=== PATIENT | male | born 1970 | race Caucasian/White ===

== ENCOUNTER 2020-02-27 03:01 | Inpatient (IN) | payer OTHER, SELFPAY ==
[2020-02-27] VITALS (12 sets, daily range): BP systolic 168–210; BP diastolic 93–115; PULSE 74–95; RESP 16–20; TEMP 36.7–37.1; O2SAT 95–100; BMI 37.1
--- NOTE | 2020-02-27 04:52 | CT_ITS ---
EXAMINATION: CT ABDOMEN AND PELVIS WITH CONTRAST CLINICAL INFORMATION: epigastric pain COMPARISON: None TECHNIQUE: Multidetector volumetric images were obtained from the superior aspect of the liver through the pubic symphysis following administration 85 mL of Omnipaque 350 intravenous contrast. Sagittal and coronal reformatted images were obtained on the technologist's workstation. Oral contrast: No This CT examination was performed using dose optimization techniques as appropriate, variously including the following: *Automated exposure control *Adjustment of mA and/or kV according to patient size (this includes techniques or standardized protocols for targeted exams where dose is matched to indication/reason for exam; i.e. extremities or head) *Use of iterative reconstruction technique DLP: 691 mGy-cm FINDINGS: LUNG BASES: The visualized lung bases are unremarkable. LIVER, GALLBLADDER, AND BILIARY TREE: The liver is normal in size, shape, and attenuation. No focal hepatic lesion or biliary ductal dilatation is present. The gallbladder is unremarkable with no evidence of radiopaque gallstones, gallbladder wall thickening, or obvious pericholecystic inflammatory changes. PANCREAS: There is fat stranding around the pancreatic head and the second portion of duodenum. Pancreatic parenchyma is normal in attenuation. No ductal dilatation. No fluid collections. No pancreatic calcifications. SPLEEN: Unremarkable. ADRENAL GLANDS: Unremarkable. KIDNEYS AND URETERS: The kidneys are normal in size, shape, and attenuation. No hydronephrosis, hydroureter, or calculi seen. No perinephric stranding. BLADDER: Unremarkable. GASTROINTESTINAL TRACT: There is focal wall thickening at the second and third portions of the duodenum with mucosal hyperenhancement. No extraluminal gas or fluid collections are identified in this region. Small bowel and colon are otherwise normal in appearance. No additional bowel wall thickening. Appendix is unremarkable. ABDOMINAL WALL: Small fat-containing umbilical hernia. LYMPH NODES: No adenopathy. VASCULAR: Mild atherosclerotic calcification in the abdominal aorta and iliac arteries. PELVIC VISCERA: Unremarkable. OSSEOUS STRUCTURES: Status post right total hip arthroplasty without evidence of complications on these images. Mild osteoarthritis in the left hip. Degenerative spondylosis in the thoracolumbar spine. CT/CT abdomen pelvis w con IMPRESSION: Fat stranding around the pancreatic head and the second and third portions of the duodenum with associated duodenal wall thickening and mucosal hyperemia. This appearance is most likely due to acute interstitial pancreatitis with secondary inflammation of the duodenum. Primary duodenitis or peptic ulcer disease are also possibilities. No evidence of perforation or fluid collections.
--- NOTE | 2020-02-27 04:54 | ED_ITS ---
HPI - Abdominal Pain General Chief Complaint: Abdominal Pain Stated Complaint: Abdominal/Chest Pain Time Seen by Provider: 02/27/20 04:47 Source: patient Mode of arrival: ambulatory Limitations: no limitations History of Present Illness HPI narrative: Patient comes emergency room complaining of epigastric pain which started 3 days ago but gradually getting worse. Patient states 3 days ago it was his birthday, he has been binge drinking for 3 days in a row. However, patient states that his pain reminds me of the time he was poisoned with rat poison patient denies being in any physical contact with any poison to his knowledge. Patient complaining of vomiting, no diarrhea. No fever. Related Data Allergies Allergy/AdvReac Type Severity Reaction Status Date / Time No Known Allergies Allergy Unverified 11/02/19 16:02 [No Known Allergies*] Review of Systems Review of Systems Constitutional : No Weight loss, No Fever, No Chills, No Night Sweats, No Fatigue, No Malaise ENT/Mouth : No Hearing loss, No Ear Pain, No Nasal Congestion, No Sinus Pain, No Hoarseness, No sore throat, No Rhinorrhea, No Swallowing Difficulty Eyes: No Eye Pain, No Swelling, No Redness, No Foreign Body, No Discharge, No Vision Changes Cardiovascular : No Chest Pain, No SOB, No Dyspnea on Exertion, No Orthopnea, No Edema, No Palpitations Respiratory : No Cough, No Sputum, No Wheezing, No Smoke Exposure, No Dyspnea Gastrointestinal : Patient complaining of nausea and vomiting, no diarrhea, diffuse abdominal pain but much worse in the epigastric region Genitourinary : no irregular bleeding, No Dysuria, No Urinary Frequency, No Hematuria, No Urinary Incontinence, No Urgency, No Flank Pain, No Urinary Flow Changes, No Hesitancy Musculoskeletal : No joint pain, No Myalgias, No Joint Swelling Skin : No Skin Lesions, No rash Neuro : No Weakness, No Numbness, No Paresthesias, No Loss of Consciousness, No Dizziness, No Headache Psych : No Anxiety/Panic, complaining of depression, therefore drinking more than usual, but no SI or HI Heme/Lymph: No Bruising, No Bleeding,No Lymphadenopathy Endocrine : No Polyuria, No Polydipsia, No Temperature Intolerance Physical Exam Vital Signs: Vital Signs: Last Vital Signs Temp 98.4 F 02/27/20 05:36 Pulse 76 02/27/20 05:36 Resp 16 02/27/20 05:36 BP 192/102 H 02/27/20 05:36 Pulse Ox 99 02/27/20 05:36 Body Mass Index 37.1 Appearance: Alert. Oriented X3. In moderate distress due to pain Eyes: Pupils equal, round and reactive to light. ENT: Pharynx normal. Neck: Normal inspection. Neck supple. No lymph nodes noted. No crepitus CVS: Normal heart rate and rhythm. Pulses normal. Normal S1 and S2 Respiratory: No respiratory distress. Breath sounds normal. No Wheezing. No rales Abdomen: Soft not distended, complaining of severe epigastric pain Skin: Skin warm and dry. Normal skin color. Normal skin turgor. Extremities: No lower extremity edema. No lower extremity edema. No Lacerations. No Rash Neuro: Oriented X 3. No motor deficit. No sensory deficit. Moving all extermities. No slurred speech. Course Course Course Narrative: Patient's lipase is elevated and CT scan does show pancreatitis. I spoke with our hospitalist Dr. Romo, patient is being admitted. MDM - Abdominal Pain Lab Data Result diagrams: 02/27/20 05:14 02/27/20 05:14 Labs: Lab Results 02/27/20 02/27/20 02/27/20 Range/Units 05:14 05:14 05:14 WBC 13.8 H (4.8-10.8) X10*3/uL RBC 4.19 L (4.60-5.80) X10*6/uL Hgb 13.6 L (14.0-18.0) g/dl Hct 38.9 L (42-52) % MCV 92.8 (80-98) fL MCH 32.5 (27.0-33.0) pg MCHC 35.0 (31.0-36.0) g/dl RDW 11.4 (11.0-16.0) % Plt Count 265 (160-400) X10*3/uL MPV 9.4 (9.4-12.4) fL Immature Gran % (Auto) 0.6 H (0.0-0.4) % Neut % (Auto) 79.9 H (45-73) % Lymph % (Auto) 9.2 L (20-40) % [place] % (Auto) 8.3 (2-11) % Eos % (Auto) 1.6 (0-4) % Baso % (Auto) 0.4 (0-2) % Lymph # (Auto) 1.3 (1.2-4.9) X10*3/uL [place] # (Auto) 1.2 (0.1-1.2) X10*3/uL Eos # (Auto) 0.2 (0.0-0.4) X10*3/uL Baso # (Auto) 0.1 (0.0-0.2) X10*3/uL Abs Immat Gran (auto) 0.08 H (0.00-0.03) X10*3/uL Absolute Neuts (auto) 11.1 H (2.0-8.3) X10*3/uL Absolute Nucleated RBC 0.000 (0.0-0.012) X10*3/uL Nucleated RBC % (auto) 0.0 (0.0-0.2) /100WBC Sodium 141 (135-145) mmol/L Potassium 3.7 (3.3-5.1) mmol/l Chloride 101 (96-108) mmol/L Carbon Dioxide 27 (22-29) mmol/L Anion Gap 17 (12-20) BUN 8 L (9-16) mg/dL Creatinine 0.90 (0.5-1.4) mg/dL Estim Creat Clear Calc 108.6 Estimated GFR > 60 Random Glucose 253 H (60-115) mg/dL Calcium 9.8 (8.4-10.2) mg/dL Total Bilirubin 0.7 (0.0-1.0) mg/dL Direct Bilirubin 0.3 (0.0-0.5) mg/dL AST 26 (5-37) U/L ALT 48 H (0-40) U/L Alkaline Phosphatase 98 (39-117) U/L Troponin I High Sens 4.9 (<3.5-35.0) ng/L Total Protein 7.5 (6.5-8.0) g/dL Albumin 4.7 (3.5-5.0) g/dL Lipase 714 H (8-78) U/L Ethyl Alcohol mg/dL 02/27/20 Range/Units 05:14 WBC (4.8-10.8) X10*3/uL RBC (4.60-5.80) X10*6/uL Hgb (14.0-18.0) g/dl Hct (42-52) % MCV (80-98) fL MCH (27.0-33.0) pg MCHC (31.0-36.0) g/dl RDW (11.0-16.0) % Plt Count (160-400) X10*3/uL MPV (9.4-12.4) fL Immature Gran % (Auto) (0.0-0.4) % Neut % (Auto) (45-73) % Lymph % (Auto) (20-40) % [place] % (Auto) (2-11) % Eos % (Auto) (0-4) % Baso % (Auto) (0-2) % Lymph # (Auto) (1.2-4.9) X10*3/uL [place] # (Auto) (0.1-1.2) X10*3/uL Eos # (Auto) (0.0-0.4) X10*3/uL Baso # (Auto) (0.0-0.2) X10*3/uL Abs Immat Gran (auto) (0.00-0.03) X10*3/uL Absolute Neuts (auto) (2.0-8.3) X10*3/uL Absolute Nucleated RBC (0.0-0.012) X10*3/uL Nucleated RBC % (auto) (0.0-0.2) /100WBC Sodium (135-145) mmol/L Potassium (3.3-5.1) mmol/l Chloride (96-108) mmol/L Carbon Dioxide (22-29) mmol/L Anion Gap (12-20) BUN (9-16) mg/dL Creatinine (0.5-1.4) mg/dL Estim Creat Clear Calc Estimated GFR Random Glucose (60-115) mg/dL Calcium (8.4-10.2) mg/dL Total Bilirubin (0.0-1.0) mg/dL Direct Bilirubin (0.0-0.5) mg/dL AST (5-37) U/L ALT (0-40) U/L Alkaline Phosphatase (39-117) U/L Troponin I High Sens (<3.5-35.0) ng/L Total Protein (6.5-8.0) g/dL Albumin (3.5-5.0) g/dL Lipase (8-78) U/L Ethyl Alcohol < 10 mg/dL Imaging Data CT scan - abdomen: Radiologist's impression: FINDINGS: LUNG BASES: The visualized lung bases are unremarkable. LIVER, GALLBLADDER, AND BILIARY TREE: The liver is normal in size, shape, and attenuation. No focal hepatic lesion or biliary ductal dilatation is present. The gallbladder is unremarkable with no evidence of radiopaque gallstones, gallbladder wall thickening, or obvious pericholecystic inflammatory changes. PANCREAS: There is fat stranding around the pancreatic head and the second portion of duodenum. Pancreatic parenchyma is normal in attenuation. No ductal dilatation. No fluid collections. No pancreatic calcifications. SPLEEN: Unremarkable. ADRENAL GLANDS: Unremarkable. KIDNEYS AND URETERS: The kidneys are normal in size, shape, and attenuation. No hydronephrosis, hydroureter, or calculi seen. No perinephric stranding. BLADDER: Unremarkable. GASTROINTESTINAL TRACT: There is focal wall thickening at the second and third portions of the duodenum with mucosal hyperenhancement. No extraluminal gas or fluid collections are identified in this region. Small bowel and colon are otherwise normal in appearance. No additional bowel wall thickening. Appendix is unremarkable. ABDOMINAL WALL: Small fat-containing umbilical hernia. LYMPH NODES: No adenopathy. VASCULAR: Mild atherosclerotic calcification in the abdominal aorta and iliac arteries. PELVIC VISCERA: Unremarkable. OSSEOUS STRUCTURES: Status post right total hip arthroplasty without evidence of complications on these images. Mild osteoarthritis in the left hip. Degenerative spondylosis in the thoracolumbar spine. CT/CT abdomen pelvis w con IMPRESSION: Fat stranding around the pancreatic head and the second and third portions of the duodenum with associated duodenal wall thickening and mucosal hyperemia. This appearance is most likely due to acute interstitial pancreatitis with secondary inflammation of the duodenum. Primary duodenitis or peptic ulcer disease are also possibilities. No evidence of perforation or fluid collections. Discharge Plan Discharge Clinical Impression: Pancreatitis Patient Disposition: Admitted As Inpatient [facility] Past Medical History Medical History (Updated 02/27/20 @ 07:07 by Lisa Allison MD) Alcohol abuse Arthritis Cocaine abuse Hypertension Pancreatitis Seizures Social History Social History Advance Directives: No
[2020-02-27] MEDS: 0.9 % Sodium Chloride 1,000 ML 999 ML IVCONT ×2 (05:10→07:31)
[2020-02-27] MEDS: ondansetron HCL 4 MG/2 ML VIAL IVPUSH (05:10)
[2020-02-27] MEDS: Morphine Sulfate 4 MG/ML CARTRIDGE IVPUSH (05:10)
[2020-02-27 05:20] LABS: MANUAL DIFF FLAG NO
[2020-02-27 05:21] LABS: Basophils Absolute Auto 0.1 X10*3/uL (0.0-0.2); Basophils Percent Auto 0.4 % (0-2); Eosinophils Absolute Auto 0.2 X10*3/uL (0.0-0.4); Eosinophils Percent Auto 1.6 % (0-4); Hematocrit 38.9 % (42-52); Hemoglobin 13.6 g/dl (14.0-18.0); Imm Gran Abs Auto 0.08 X10*3/uL (0.00-0.03); Imm Gran Pct Auto 0.6 % (0.0-0.4); Lymphocytes Absolute Auto 1.3 X10*3/uL (1.2-4.9); Lymphocytes Percent Auto 9.2 % (20-40); Mean Corpuscular Hemoglobin 32.5 pg (27.0-33.0); Mean Corpuscular Volume 92.8 fL (80-98); Mean Platelet Volume 9.4 fL (9.4-12.4); Monocytes Absolute Auto 1.2 X10*3/uL (0.1-1.2); Monocytes Percent Auto 8.3 % (2-11); Neutrophils Absolute Auto 11.1 X10*3/uL (2.0-8.3); Neutrophils Percent Auto 79.9 % (45-73); Platelet Count 265 X10*3/uL (160-400); Red Blood Count 4.19 X10*6/uL (4.60-5.80); Red Cell Distribution Width 11.4 % (11.0-16.0); White Blood Count 13.8 X10*3/uL (4.8-10.8)
[2020-02-27 05:41] LABS: Ethanol < 10 mg/dL
--- NOTE | 2020-02-27 05:41 | PC.NURSE ---
LUIS FLORES AWARE OF PATIENT HIGH BLOOD PRESSURE .
[2020-02-27 05:47] LABS: Troponin-I High Sensitivity 4.9 ng/L (<3.5-35.0)
[2020-02-27 05:50] LABS: Alanine Aminotransferase 48 U/L (0-40); Albumin Level 4.7 g/dL (3.5-5.0); Alkaline Phosphatase 98 U/L (39-117); Anion Gap 17 (12-20); Aspartate Amino Transferase 26 U/L (5-37); Bilirubin Direct 0.3 mg/dL (0.0-0.5); Bilirubin Total 0.7 mg/dL (0.0-1.0); Blood Urea Nitrogen 8 mg/dL (9-16); Calcium 9.8 mg/dL (8.4-10.2); Carbon Dioxide 27 mmol/L (22-29); Chloride 101 mmol/L (96-108); Creatinine Clr Calc Pharmacy 108.6; Estimated Glomerular Filt Rate > 60; Glucose Random 253 mg/dL (60-115); Potassium 3.7 mmol/l (3.3-5.1); Sodium 141 mmol/L (135-145); Total Protein 7.5 g/dL (6.5-8.0)
[2020-02-27 06:06] LABS: Lipase 714 U/L (8-78)
[2020-02-27] MEDS: iohexoL 350 MG/ML 100 ML INFUS..BTL 85 ML IV (06:31)
[2020-02-27] MEDS: HYDROmorphone HCl 1 MG/ML SYRINGE IVPUSH ×3 (07:30→20:04)
[2020-02-27 08:43] LABS: COVID-19 Test Negative (Negative)
--- NOTE | 2020-02-27 10:08 | PM.GICN ---
History of Present Illness Data of Consult Service Date: 02/27/20 Requesting physician: Juan David Oliver Primary Care Provider: Ruma Gilbert MD HPI Reason for consult: pancreatitis 50 yr old m with alcohol abuse hx and DM who I am assessing for pancreatitis, He had been binging on beer for 3 d, admits drinking more than he should be but cant quantify. Has had worsening epigastric pain, now 10/10 severitiy, hurts to eat or move. He says he has had this beofre and dx with pancreatitis in past after drinking heavy. Admits to nausea and non bloody emesis, denies diarrhea, or constipation, no melena or rectal bleeding. No fever. Ct with pancreatitis and duodenal inflammation, labs with elevated wcc, lipase 750. Review of Systems Review of Systems: General - denies fevers or chills, denies weakness or fatigue HEENT -denies blurred vision, denies headache, denies sore throat Cardiovascular - denies chest pain or palpitations, denies edema Respiratory - denies shortness of breath, coughing, wheezing Gastrointestinal - +abdominal pain,+nausea, no vomiting or diarrhea; no bleeding - denies flank pain, denies dysuria, denies frequency or urgency Musculoskeletal - denies back pain, denies hip pain, denies knee pain, denies shoulder pain Neurological - denies any focal weakness or numbness Skin, denies any bruising or redness Psychiatric - denies any suicidal ideation, hallucinations, homicidal ideation Endocrinology - denies intolerance to hot / cold temperatures Yes all other systems are reviewed and are negative PMFSH Past Medical History Medical History Alcohol abuse Arthritis Cocaine abuse Diabetes mellitus Hypertension Pancreatitis Seizures Family History Family History (Updated 02/27/20 @ 11:41 by Juan David Oliver MD) Other CAD (coronary artery disease) Diabetes mellitus Surgical History Surgical History H/O hernia repair Social History Social History Alcohol intake: current Alcohol intake frequency: a few times a week Smoking Status: Current every day smoker Use of substances other than those prescribed or required for medical reasons: No Advance Directives: No service: No Current occupational status: employed Meds Allergies Allergy/AdvReac Type Severity Reaction Status Date / Time No Known Allergies Allergy Unverified 11/02/19 16:02 [No Known Allergies*] Home Medications Medication Instructions Recorded Confirmed Type dulaglutide [Trulicity] 1 mg SUBCUT QWEEK 02/27/20 02/27/20 History lisinopril 10 mg PO DAILY 02/27/20 02/27/20 History metoprolol succinate 50 mg PO DAILY 02/27/20 02/27/20 History quetiapine 300 mg PO BEDTIME 02/27/20 02/27/20 History sertraline 50 mg PO DAILY 02/27/20 02/27/20 History trazodone 150 mg PO BEDTIME 02/27/20 02/27/20 History Physical Exam Vital Signs: Vital Signs: Last Vital Signs Temp 98.4 F 02/27/20 05:36 Pulse 91 02/27/20 08:22 Resp 18 02/27/20 08:22 BP 168/109 H 02/27/20 08:22 Pulse Ox 96 02/27/20 08:22 Body Mass Index 37.1 Const: General: alert and in distress Nutritional Appearance: overweight Orientation/consciousness: patient oriented x3 Eyes: General: appearance normal, both eyes and all related structures Resp: Effort & Inspection: normal respiratory effort, able to speak in complete sentences and no use of accessory muscles Auscultation: clear to auscultation bilaterally Cardio: Jugular venous distension: no JVD Rate: regular rate Rhythm: regular rhythm GI: Inspection: Yes normal to inspection Palpation (GI): Soft to palpation and Tenderness to palpation present (GI) in the epigastrum Skin: General skin exam: no rashes or lesions noted Neuro: General: patient oriented x3 Psych: Appearance: grossly normal Attitude: cooperative Results Labs CBC & Chem 7: 02/27/20 05:14 02/27/20 05:14 Labs: Short CBC 02/27/20 Range/Units 05:14 WBC 13.8 H (4.8-10.8) X10*3/uL Hgb 13.6 L (14.0-18.0) g/dl Hct 38.9 L (42-52) % Plt Count 265 (160-400) X10*3/uL BMP 02/27/20 05:14 Sodium 141 Potassium 3.7 Chloride 101 Carbon Dioxide 27 BUN 8 L Creatinine 0.90 Calcium 9.8 Liver Function 02/27/20 Range/Units 05:14 Total Bilirubin 0.7 (0.0-1.0) mg/dL Direct Bilirubin 0.3 (0.0-0.5) mg/dL AST 26 (5-37) U/L ALT 48 H (0-40) U/L Alkaline Phosphatase 98 (39-117) U/L Albumin 4.7 (3.5-5.0) g/dL Imaging CT scan - abdomen: Attestation: I personally reviewed and interpreted this imaging study as follows: My impression: pancreatic head edema, stranding Assessment and Plan (1) Pancreatitis: Qualifiers: Acute pancreatitis complication: unspecified Chronicity: acute Pancreatitis type: alcohol induced Qualified Code(s): K85.20 - Alcohol induced acute pancreatitis without necrosis or infection Status: Acute (2) Alcohol abuse: Status: Acute 1/ Acute interstitial pancreatitis, related to alcohol and smoking use 2/ Duodenitis, no that prominent appears minimal to my read on CT on the coronoal jennifer, prob related to the adjacent pancreatitis, and is in the descending duodenum PLAN: 1/ Diet as tolerated, otherwie NPO and analgesia 2/ fluid resus with LR 5-10ml/kg/hr, reassess HCT and BUN in 24 hrs if reduced then can cut back jennifer if PO tolerated 3/ encouraged on alcohol abstinence 4/ mutlivitamin an CIWA 5/o/p MRI in few months to make sure no underlying pancres lesion 6/ can give low dose PPI to prevent ulceration and reduce duodenitis 7/ us to r/o concomitant gallstones
--- NOTE | 2020-02-27 11:31 | PM.IMHP ---
History of Present Illness Date of Service: 02/27/20 Chief Complaint: abdominal pain This is a 50-year-old male with a past medical history of diabetes, HTN and chronic alcohol abuse/dependence who presents to the hospital complaints of abdominal pain which has been ongoing for the last several days but acutely worsened yesterday and so he presented to the hospital. He reports some nausea without vomiting and denies any diarrhea. He denies any fevers or chills. He does endorse that he has been binge drinking, unable to quantify how many drinks over the last several days as he reports that it was his birthday about 3 days ago. In regards to his alcohol intake, he denies daily heavy drinking but does report that he drinks heavily on the weekends. He denies any NSAID use. Chart review reveals that the patient has had pancreatitis several times in the past. In the emergency room, patient was given IV pain control, IV emetics, IV fluids and underwent a CT scan of the abdomen which showed pancreatitis. Possible duodenal ulcer could not be ruled out. Review of Systems Review of Systems: General - denies fevers or chills, denies weakness or fatigue HEENT -denies blurred vision, denies headache, denies sore throat Cardiovascular - denies chest pain or palpitations, denies edema Respiratory - denies shortness of breath, coughing, wheezing Gastrointestinal - +abdominal pain,+nausea, no vomiting or diarrhea; no bleeding - denies flank pain, denies dysuria, denies frequency or urgency Musculoskeletal - denies back pain, denies hip pain, denies knee pain, denies shoulder pain Neurological - denies any focal weakness or numbness Skin, denies any bruising or redness Psychiatric - denies any suicidal ideation, hallucinations, homicidal ideation Endocrinology - denies intolerance to hot / cold temperatures [facility] Medical History (Updated 02/27/20 @ 11:41 by Juan David Oliver MD) Alcohol abuse Arthritis Cocaine abuse Diabetes mellitus Hypertension Pancreatitis Seizures Family History (Updated 02/27/20 @ 11:41 by Juan David Oliver MD) Other CAD (coronary artery disease) Diabetes mellitus Surgical History (Updated 02/27/20 @ 11:41 by Juan David Oliver MD) H/O hernia repair Social History (Updated 02/27/20 @ 11:42 by Juan David Oliver MD) Alcohol intake: current Alcohol intake frequency: a few times a week Advance Directives: No Meds Allergies Allergy/AdvReac Type Severity Reaction Status Date / Time No Known Allergies Allergy Unverified 11/02/19 16:02 [No Known Allergies*] Physical Exam Vital Signs and Narrative: Vital Signs: Last Vital Signs Temp 98.4 F 02/27/20 05:36 Pulse 91 02/27/20 08:22 Resp 18 02/27/20 08:22 BP 168/109 H 02/27/20 08:22 Pulse Ox 96 02/27/20 08:22 Body Mass Index 37.1 Const: Other: Constitutional - Awake and Alert, No apparent distress Eyes - PERRLA, EOMI Cardiovascular - S1S2, RRR, No edema Respiratory - Normal lung expansion, Normal respiratory effort, No respiratory distress, CTA bilaterally Gastrointestinal - diffuse tenderness without rebound or guarding - No CVA tenderness Extremities - no calf tenderness bilaterally, no swelling Musculoskeletal - Normal inspection, normal ROM Skin - Warm/Dry Neurological - Alert & oriented x3, No focal deficit Psychological - Appropriate affect Results Labs CBC and Chem 7: 02/27/20 05:14 02/27/20 05:14 Labs: Laboratory Results - last 24 hr 02/27/20 02/27/20 02/27/20 05:14 05:14 05:14 MCV 92.8 MCH 32.5 MCHC 35.0 RDW 11.4 Plt Count 265 MPV 9.4 Immature Gran % (Auto) 0.6 H Neut % (Auto) 79.9 H Lymph % (Auto) 9.2 L [place] % (Auto) 8.3 Eos % (Auto) 1.6 Baso % (Auto) 0.4 Lymph # (Auto) 1.3 [place] # (Auto) 1.2 Eos # (Auto) 0.2 Baso # (Auto) 0.1 Abs Immat Gran (auto) 0.08 H Absolute Neuts (auto) 11.1 H Absolute Nucleated RBC 0.000 Nucleated RBC % (auto) 0.0 Anion Gap 17 Estim Creat Clear Calc 108.6 Estimated GFR > 60 Random Glucose 253 H Calcium 9.8 Total Bilirubin 0.7 Direct Bilirubin 0.3 AST 26 ALT 48 H Alkaline Phosphatase 98 Troponin I High Sens 4.9 Total Protein 7.5 Albumin 4.7 Lipase 714 H Ethyl Alcohol COVID-19 (BUD) COVID-19 Clin Com 02/27/20 02/27/20 05:14 08:19 MCV MCH MCHC RDW Plt Count MPV Immature Gran % (Auto) Neut % (Auto) Lymph % (Auto) [place] % (Auto) Eos % (Auto) Baso % (Auto) Lymph # (Auto) [place] # (Auto) Eos # (Auto) Baso # (Auto) Abs Immat Gran (auto) Absolute Neuts (auto) Absolute Nucleated RBC Nucleated RBC % (auto) Anion Gap Estim Creat Clear Calc Estimated GFR Random Glucose Calcium Total Bilirubin Direct Bilirubin AST ALT Alkaline Phosphatase Troponin I High Sens Total Protein Albumin Lipase Ethyl Alcohol < 10 COVID-19 (BUD) Negative COVID-19 Clin Com See Note Imaging Radiologist's Impressions: Impressions Abdomen/Pelvis CT 02/27/20 04:52 IMPRESSION: Fat stranding around the pancreatic head and the second and third portions of the duodenum with associated duodenal wall thickening and mucosal hyperemia. This appearance is most likely due to acute interstitial pancreatitis with secondary inflammation of the duodenum. Primary duodenitis or peptic ulcer disease are also possibilities. No evidence of perforation or fluid collections. Assessment and Plan (1) Pancreatitis: Qualifiers: Acute pancreatitis complication: unspecified Chronicity: acute Pancreatitis type: alcohol induced Qualified Code(s): K85.20 - Alcohol induced acute pancreatitis without necrosis or infection Status: Acute (2) Alcohol abuse: Status: Acute (3) Diabetes mellitus: Status: Acute This is a 50-year-old male with a history of alcohol abuse and dependence who presents to the hospital with complaints of epigastric abdominal pain which has progressively worsened over the last 3 days. He reports some dry heaving without any vomiting. He reports no bleeding. He is admitted for pancreatitis. 1. Acute pancreatitis Secondary to heavy alcohol use Aggressive fluid resuscitation IV pain control Alcohol cessation has been strongly encouraged 2. Alcohol abuse and dependence Start him on phenobarbital Monitor his electrolytes 3. Question duodenitis/duodenal ulcer seen on CT scan Keep him NPO for now Start IV Protonix Consult gastroenterology Avoid blood thinners for time being 4. Diabetes mellitus Point of cares q.6 hours 5. Hypertension Continue his home meds once med rec is completed Full code DVT prophylaxis, mechanical due to possible duodenal ulcer He reports that he does not have a healthcare proxy
[2020-02-27] MEDS: Lactated Ringers 1,000 ML 150 ML IVCONT ×2 (11:46→23:51)
[2020-02-27] MEDS: HYDROmorphone HCl 0.5 MG/0.5 ML SYRINGE IVPUSH (11:47)
[2020-02-27] MEDS: Pantoprazole Sodium 40 MG/10 ML VIAL IVPUSH ×2 (11:47→20:00)
[2020-02-27 11:54] LABS: Glucose, Whole Blood 238 mg/dL (60-115)
[2020-02-27] MEDS: PHENobarbitaL sodium 130 MG/ML VIAL 204 MG IM (12:32)
[2020-02-27] MEDS: Metoprolol Succinate ER 50 MG TAB.ER.24H PO (14:14)
[2020-02-27] MEDS: lisinopriL 10 MG TABLET PO (14:14)
--- NOTE | 2020-02-27 14:45 | MHC.CM.PN ---
Met with pt in ED 6 young. Pt admitted inpatient with pancreatitis. Pt pleasant and cooperative. Pt lives alone, but has many friends. Hx ETOH abuse, binge drinks. Aware he should stop, but states He will cut down to lite beer . Denies any illicit drug abuse. States cocaine abuse was long ago. Enc pt to stop drinking. Pt no interested in any rehabilitation for his drinking. IMM reviewed and signed. Pt does not have a HCP. Reviewed HCP and process. Pt willing to complete with his father, Ramu Saxena ([phone]) as HCP. D/C plan is home without services. Will follow for d/c needs
--- NOTE | 2020-02-27 15:47 | PC.NURSE ---
LUIS BURTON AWARE OF PATIENT HIGH BLOOD PRESSURE .
[2020-02-27] MEDS: PHENobarbitaL sodium 130 MG/ML VIAL 154 MG IM ×2 (16:35→20:04)
--- NOTE | 2020-02-27 23:37 | PC.NURSE ---
WITNESSED RETURN OF TRAZADONE 150 MG. MEDICATION NOW RE-GIVEN FOR BEDTIME.
[2020-02-27] MEDS: QUEtiapine Fumarate 300 MG TABLET PO (23:42)
[2020-02-27] MEDS: traZODone HCL 50 MG TABLET 150 MG PO (23:43)
--- NOTE | 2020-02-28 | US_ITS ---
EXAMINATION: US ABDOMEN LIMITED CLINICAL INFORMATION: Rule out gallstones. COMPARISON: CT abdomen and pelvis with contrast 02/27/2020, ultrasound abdomen 11/11/2018 TECHNIQUE: Real-time imaging of the right upper quadrant abdominal viscera. FINDINGS: PANCREAS: Portions pancreatic head and neck appear normal in size and echogenicity. No pancreatic ductal distention or peripancreatic effusion. Body and tail are obscured by bowel gas and not visualized. LIVER: The liver is normal in size and smooth in contour. There is increased hepatic parenchymal echogenicity consistent with hepatic steatosis. There is no focal hepatic parenchymal lesion or intrahepatic ductal dilatation. Doppler shows portal flow towards the liver. GALLBLADDER: No gallstone, sludge, wall thickening. No pericholecystic fluid. COMMON BILE DUCT: Normal in caliber measuring 0.6 cm in diameter. RIGHT KIDNEY: Normal. No hydronephrosis. No renal calculi or focal parenchymal lesions. The kidney measures 11.2 cm in maximum dimension. FREE FLUID: None. US/US abdomen limited IMPRESSION: 1. No cholelithiasis, gallbladder wall thickening, or ductal dilatation. 2. Hepatic steatosis. Portal flow towards the liver. 3. Visualized pancreatic head and neck unremarkable.
[2020-02-28] MEDS: HYDROmorphone HCl 1 MG/ML SYRINGE IVPUSH ×5 (02:11→19:39)
--- NOTE | 2020-02-28 05:40 | PC.NURSE ---
PT UP TO RESTROOM WITH STEADY EVEN GAIT. PT C/O PAIN TO MID ABD AREA. WILL CONTINUE TO MONITOR PT.
[2020-02-28 06:23] LABS: MANUAL DIFF FLAG NO
[2020-02-28 06:38] LABS: Basophils Absolute Auto 0.1 X10*3/uL (0.0-0.2); Basophils Percent Auto 0.3 % (0-2); Eosinophils Absolute Auto 0.1 X10*3/uL (0.0-0.4); Eosinophils Percent Auto 0.7 % (0-4); Hematocrit 36.7 % (42-52); Hemoglobin 12.7 g/dl (14.0-18.0); Imm Gran Pct Auto 0.6 % (0.0-0.4); Lymphocytes Absolute Auto 1.1 X10*3/uL (1.2-4.9); Lymphocytes Percent Auto 7.1 % (20-40); Mean Corpuscular HGB Conc 34.6 g/dl (31.0-36.0); Mean Corpuscular Hemoglobin 32.6 pg (27.0-33.0); Mean Corpuscular Volume 94.1 fL (80-98); Mean Platelet Volume 9.8 fL (9.4-12.4); Monocytes Absolute Auto 1.3 X10*3/uL (0.1-1.2); Monocytes Percent Auto 8.1 % (2-11); Neutrophils Absolute Auto 13.3 X10*3/uL (2.0-8.3); Neutrophils Percent Auto 83.2 % (45-73); Platelet Count 266 X10*3/uL (160-400); Red Cell Distribution Width 11.7 % (11.0-16.0)
[2020-02-28 07:14] LABS: Anion Gap 19 (12-20); Blood Urea Nitrogen 4 mg/dL (9-16); Calcium 9.4 mg/dL (8.4-10.2); Carbon Dioxide 26 mmol/L (22-29); Chloride 98 mmol/L (96-108); Creatinine Clr Calc Pharmacy 130.3; Estimated Glomerular Filt Rate > 60; Glucose Random 218 mg/dL (60-115); Potassium 3.6 mmol/l (3.3-5.1); Sodium 139 mmol/L (135-145)
[2020-02-28 07:43] VITALS: BP 158/91; PULSE 98; RESP 18; TEMP 36.4; O2SAT 97
[2020-02-28 08:01] LABS: Glucose, Whole Blood 241 mg/dL (60-115)
--- NOTE | 2020-02-28 08:20 | P.PNIM_ITS ---
Subjective Subjective Date of Service: 02/28/20 Interval History: seen and examined reports pain is still severe reports improvement in nausea ROS General - no fevers or chills Cardiovascular - no chest pain Respiratory - no shortness of breath or cough Abdominal- +pain, nausea improved Physical Exam Vital Signs: Vital Signs: Last Vital Signs Temp 97.6 F 02/28/20 07:43 Pulse 98 02/28/20 07:43 Resp 18 02/28/20 07:43 BP 158/91 H 02/28/20 07:43 Pulse Ox 97 02/28/20 07:43 Body Mass Index 37.1 Const: Other: General - no acute distress, appears comfortable Cardiovascular - regular rate and rhythm, S1-S2 Lungs - normal respiratory effort, clear to auscultation bilaterally, no wheezing Abdomen - +diffuse tenderness without rebound or guarding Extremities - no edema bilaterally Neuro - awake and alert, no focal deficits Objective Data Current Medications Generic Name Dose Route Start Last Admin Trade Name Freq PRN Reason Stop Dose Admin Acetaminophen 650 mg 02/27/20 11:29 Acetaminophen Supp 650 Mg Supp.Rect IN Q6H PRN Pain, Mild (Pain Scale 1-3) Hydromorphone HCl 1 mg 02/27/20 13:37 02/28/20 06:21 Hydromorphone Hcl 1 Mg/Ml Syringe IVPUSH 1 mg Q4H PRN Administration Pain, Severe (Pain Scale 7-10) Lactated Ringer's 1,000 mls @ 150 mls/hr 02/27/20 11:30 02/28/20 01:06 Lr IVCONT Not Given .Q6H40M [facility] Lisinopril 10 mg 02/27/20 13:36 02/27/20 14:14 Lisinopril 10 Mg Tablet PO 10 mg DAILY [facility] Administration Protocol Medication 1 each 02/28/20 09:00 No Benzodiazepines MISCELLANE DAILY [facility] Metoprolol Succinate 50 mg 02/27/20 13:36 02/27/20 14:14 Metoprolol Succinate Er 50 Mg Tab.Er.24h PO 50 mg DAILY [facility] Administration Protocol Ondansetron HCl 4 mg 02/27/20 11:29 Ondansetron Hcl 4 Mg/2 Ml Vial IVPUSH Q8H PRN Nausea and Vomiting Pantoprazole Sodium 40 mg 02/27/20 11:30 02/27/20 20:00 Pantoprazole Sodium 40 Mg/10 Ml Vial IVPUSH 40 mg BID@0630,1630 [facility] Administration Pharmacy Consult 1 each 02/27/20 11:29 Consult Rx Perform Med Rec MISCELLANE ONCE PRN Consult order Pharmacy Consult 1 each 02/27/20 11:29 Consult Rx Etoh Phenob Dosing MISCELLANE ONCE PRN Consult order Protocol Phenobarbital 45 mg 02/28/20 09:00 Phenobarbital 15 Mg Tablet PO 02/29/20 21:01 BID [facility] Phenobarbital 30 mg 03/01/20 09:00 Phenobarbital 30 Mg Tablet PO 03/02/20 21:01 BID [facility]AG[facility] Phenobarbital 30 mg 03/03/20 09:00 Phenobarbital 30 Mg Tablet PO 03/04/20 09:01 DAILY [facility] Quetiapine Fumarate 300 mg 02/27/20 23:30 02/27/20 23:42 Quetiapine Fumarate 300 Mg Tablet PO 300 mg BEDTIME [facility] Administration Sertraline HCl 50 mg 02/28/20 09:00 Sertraline Hcl 50 Mg Tablet PO DAILY [facility] Sodium Chloride 3 ml 02/27/20 16:00 02/28/20 01:06 0.9 % Sodium Chloride Flush 3 Ml Syringe IVFLUSH Not Given QSHIFT [facility] Trazodone HCl 150 mg 02/27/20 23:30 02/27/20 23:43 Trazodone Hcl 50 Mg Tablet PO 150 mg BEDTIME [facility] Administration Labs CBC & Chem 7: 02/28/20 06:12 02/28/20 06:12 Assessment and Plan (1) Pancreatitis: Status: Acute (2) Alcohol abuse: Status: Acute (3) Diabetes mellitus: Status: Acute Assessment and Plan: This is a 50-year-old male with a history of alcohol abuse and dependence who presents to the hospital with complaints of epigastric abdominal pain which has progressively worsened over the last 3 days. He reports some dry heaving without any vomiting. He reports no bleeding. He is admitted for pancreatitis. 1. Acute pancreatitis Secondary to heavy alcohol use, to rule out biliary source per GI recs Aggressive fluid resuscitation IV pain control - pain still persists, increase dialaudid from 0.5mg to 1mg Alcohol cessation has been strongly encouraged clear liquids -- advance as tolerated 2. Alcohol abuse and dependence Start him on phenobarbital Monitor his electrolytes 3. Duodenitis change to PO prilosec 4. Diabetes mellitus POC QIDAC ISS 5. Hypertension Continue his home meds once med rec is completed Full code DVT pptx, commence lovenox
--- NOTE | 2020-02-28 09:08 | MHC.CM.PN ---
nurse respiratory care faculty note electronic medical record reviewed, past history of etho abuse and cocaine abuse (denies cocaine use in very long time) ct scan notes acute interstitial pancreatitis and duodenitis gastroenteritis consulted . plan of care fluid restriction, clear liquid diet (may advance today and monitor tolerance) continue to monitor daily labs, iv analgesics prn ,changed iv to po prilosec, etoh abuse on ciwa scale and phenobarbital protocol discharge plan home with no services , offered counseling for etoh in the er and on the medical surgical floor and decined disxcharged hplan home no services transportation -patient to set up gastroenteroogist follow up as indicated on the discharge instructions pcp patient to call for post hospitla discharge follow up
[2020-02-28] MEDS: Enoxaparin Sodium 40 MG/0.4 ML SYRINGE SUBCUT (10:20)
[2020-02-28] MEDS: Sertraline HCL 50 MG TABLET PO (10:21)
[2020-02-28] MEDS: lisinopriL 10 MG TABLET PO (10:21)
[2020-02-28] MEDS: 0.9 % Sodium Chloride Flush 3 ML SYRINGE IVFLUSH (10:21)
[2020-02-28] MEDS: PHENobarbitaL 15 MG TABLET 45 MG PO ×2 (10:23→20:01)
[2020-02-28] MEDS: Metoprolol Succinate ER 50 MG TAB.ER.24H PO (10:23)
[2020-02-28] MEDS: Lactated Ringers 1,000 ML 150 ML IVCONT ×2 (10:39→23:46)
[2020-02-28 11:10] LABS: Glucose, Whole Blood 240 mg/dL (60-115)
[2020-02-28 11:32] VITALS: BP 145/85; PULSE 96; RESP 18; TEMP 36.9; O2SAT 96
[2020-02-28] MEDS: Insulin Lispro 100 UNIT/ML 3 ML VIAL SUBCUT ×3 (12:45→20:42)
[2020-02-28 14:44] VITALS: BMI 37.1
[2020-02-28 15:25] VITALS: BP 146/77; PULSE 89; RESP 18; TEMP 36.3; O2SAT 96
[2020-02-28 16:37] LABS: Glucose, Whole Blood 227 mg/dL (60-115)
[2020-02-28] MEDS: Omeprazole 20 MG CAPSULE.DR PO (16:40)
[2020-02-28 19:39] VITALS: RESP 20
[2020-02-28 20:00] VITALS: BP 158/76; PULSE 88; RESP 18; TEMP 36.6; O2SAT 94
[2020-02-28] MEDS: QUEtiapine Fumarate 300 MG TABLET PO (20:01)
[2020-02-28] MEDS: traZODone HCL 50 MG TABLET 150 MG PO (20:01)
[2020-02-28 20:35] LABS: Glucose, Whole Blood 221 mg/dL (60-115)
[2020-02-29] VITALS (8 sets, daily range): BP systolic 128–155; BP diastolic 74–90; PULSE 81–102; RESP 16–20; TEMP 36.3–37.1; O2SAT 95–97
[2020-02-29] MEDS: HYDROmorphone HCl 1 MG/ML SYRINGE IVPUSH ×5 (03:49→20:16)
[2020-02-29] MEDS: Lactated Ringers 1,000 ML 150 ML IVCONT (06:11)
[2020-02-29] MEDS: Omeprazole 20 MG CAPSULE.DR PO ×2 (06:11→16:15)
[2020-02-29] MEDS: Enoxaparin Sodium 40 MG/0.4 ML SYRINGE SUBCUT (07:40)
[2020-02-29] MEDS: Metoprolol Succinate ER 50 MG TAB.ER.24H PO (07:42)
[2020-02-29] MEDS: PHENobarbitaL 15 MG TABLET 45 MG PO ×2 (07:42→20:16)
[2020-02-29] MEDS: Sertraline HCL 50 MG TABLET PO (07:43)
[2020-02-29] MEDS: lisinopriL 10 MG TABLET PO (07:43)
[2020-02-29 08:01] LABS: Glucose, Whole Blood 179 mg/dL (60-115)
[2020-02-29] MEDS: Insulin Lispro 100 UNIT/ML 3 ML VIAL SUBCUT ×4 (08:22→20:56)
--- NOTE | 2020-02-29 08:22 | P.PNIM_ITS ---
Subjective Subjective Date of Service: 02/29/20 Interval History: seen and examined reports pain is still severe reports improvement in nausea ROS General - no fevers or chills Cardiovascular - no chest pain Respiratory - no shortness of breath or cough Abdominal- +pain, nausea improved Physical Exam Vital Signs: Vital Signs: Last Vital Signs Temp 98.4 F 02/29/20 07:50 Pulse 95 02/29/20 07:50 Resp 19 02/29/20 07:50 BP 149/79 H 02/29/20 07:50 Pulse Ox 97 02/29/20 07:50 Body Mass Index 37.1 Const: Other: General - no acute distress, appears comfortable Cardiovascular - regular rate and rhythm, S1-S2 Lungs - normal respiratory effort, clear to auscultation bilaterally, no wheezing Abdomen - tenderness improved, no rebound or guarding, bowel sounds improved Extremities - no edema bilaterally Neuro - awake and alert, no focal deficits Objective Data Current Medications Generic Name Dose Route Start Last Admin Trade Name Freq PRN Reason Stop Dose Admin Acetaminophen 650 mg 02/27/20 11:29 Acetaminophen Supp 650 Mg Supp.Rect GA Q6H PRN Pain, Mild (Pain Scale 1-3) Enoxaparin Sodium 40 mg 02/28/20 08:30 02/29/20 07:40 Enoxaparin Sodium 40 Mg/0.4 Ml Syringe SUBCUT 40 mg Q24H [facility] Administration Hydromorphone HCl 1 mg 02/27/20 13:37 02/29/20 07:40 Hydromorphone Hcl 1 Mg/Ml Syringe IVPUSH 1 mg Q4H PRN Administration Pain, Severe (Pain Scale 7-10) Lactated Ringer's 1,000 mls @ 150 mls/hr 02/27/20 11:30 02/29/20 06:11 Lr IVCONT 150 mls/hr .Q6H40M [facility] Administration Insulin Human Lispro 0 unit 02/28/20 11:30 02/29/20 08:22 Insulin Lispro 100 Unit/Ml 3 Ml Vial SUBCUT 2 unit QIDACHS [facility] Administration Protocol Lisinopril 10 mg 02/27/20 13:36 02/29/20 07:43 Lisinopril 10 Mg Tablet PO 10 mg DAILY [facility] Administration Protocol Medication 1 each 02/28/20 09:00 No Benzodiazepines MISCELLANE DAILY [facility] Metoprolol Succinate 50 mg 02/27/20 13:36 02/29/20 07:42 Metoprolol Succinate Er 50 Mg Tab.Er.24h PO 50 mg DAILY [facility] Administration Protocol Omeprazole 20 mg 02/28/20 16:30 02/29/20 06:11 Omeprazole 20 Mg Capsule.Dr PO 20 mg BID@0630,2260 [facility] Administration Ondansetron HCl 4 mg 02/27/20 11:29 Ondansetron Hcl 4 Mg/2 Ml Vial IVPUSH Q8H PRN Nausea and Vomiting Pharmacy Consult 1 each 02/27/20 11:29 Consult Rx Perform Med Rec MISCELLANE ONCE PRN Consult order Pharmacy Consult 1 each 02/27/20 11:29 Consult Rx Etoh Phenob Dosing MISCELLANE ONCE PRN Consult order Protocol Phenobarbital 45 mg 02/28/20 09:00 02/29/20 07:42 Phenobarbital 15 Mg Tablet PO 02/29/20 21:01 45 mg BID [facility]AG[facility] Administration Phenobarbital 30 mg 03/01/20 09:00 Phenobarbital 30 Mg Tablet PO 03/02/20 21:01 BID [facility]AG[facility] Phenobarbital 30 mg 03/03/20 09:00 Phenobarbital 30 Mg Tablet PO 03/04/20 09:01 DAILY [facility] Quetiapine Fumarate 300 mg 02/27/20 23:30 02/28/20 20:01 Quetiapine Fumarate 300 Mg Tablet PO 300 mg BEDTIME [facility] Administration Sertraline HCl 50 mg 02/28/20 09:00 02/29/20 07:43 Sertraline Hcl 50 Mg Tablet PO 50 mg DAILY [facility] Administration Sodium Chloride 3 ml 02/27/20 16:00 02/29/20 06:59 0.9 % Sodium Chloride Flush 3 Ml Syringe IVFLUSH Not Given QSHIFT [facility] Trazodone HCl 150 mg 02/27/20 23:30 02/28/20 20:01 Trazodone Hcl 50 Mg Tablet PO 150 mg BEDTIME [facility] Administration Labs CBC & Chem 7: 02/28/20 06:12 02/28/20 06:12 Assessment and Plan (1) Pancreatitis: Status: Acute (2) Alcohol abuse: Status: Acute (3) Diabetes mellitus: Status: Acute Assessment and Plan: This is a 50-year-old male with a history of alcohol abuse and dependence who presents to the hospital with complaints of epigastric abdominal pain which has progressively worsened over the last 3 days. He reports some dry heaving without any vomiting. He reports no bleeding. He is admitted for pancreatitis. 1. Acute pancreatitis clinically improving Secondary to heavy alcohol use, to rule out biliary source per GI recs Taper IV fluids and IV pain meds Alcohol cessation has been strongly encouraged advance to full liquids 2. Alcohol abuse and dependence phenobarb 3. Duodenitis PO Prilosec 4. Diabetes mellitus POC QIDAC ISS 5. Hypertension continue metoprolol, lisinopril Full code DVT pptx, commence lovenox
[2020-02-29 11:44] LABS: Glucose, Whole Blood 188 mg/dL (60-115)
--- NOTE | 2020-02-29 12:44 | MHC.CM.PN ---
NURSE FIRE PROTECTION INSPECTOR NOTE PATIENT IS STILL HAVING SOME ABDOMINAL PAIN AND IS RECEIVING IV DIET,HYDROMORPHONE PRN PER HOSPITALIST PLAN OF CARE WILL BE TO ADVANCED DIET TODAY AND MONITOR TOLERANCE AND PLAN FOR ANTICIPATED DISCHARGE TOMORROW FIRE PROTECTION INSPECTOR TO CONTINUE TO FOLLOW HOME WITH NO SERVICES HE HAS BEEN OFFERED ETH ABUSE COUNSELING AND COMMUNITY RESOURCES BUT DECLINED
[2020-02-29] MEDS: QUEtiapine Fumarate 300 MG TABLET PO (20:16)
[2020-02-29] MEDS: traZODone HCL 50 MG TABLET 150 MG PO (20:16)
[2020-02-29] MEDS: 0.9 % Sodium Chloride Flush 3 ML SYRINGE IVFLUSH (20:17)
[2020-02-29 20:45] LABS: Glucose, Whole Blood 187 mg/dL (60-115)
[2020-03-01] VITALS: BP 127/74; PULSE 83; RESP 16; TEMP 36.4; O2SAT 98
[2020-03-01 01:50] VITALS: RESP 18
[2020-03-01] MEDS: HYDROmorphone HCl 1 MG/ML SYRINGE IVPUSH ×3 (01:50→10:40)
[2020-03-01] MEDS: Lactated Ringers 1,000 ML 100 ML IVCONT (01:51)
[2020-03-01 03:47] VITALS: BP 123/76; PULSE 77; RESP 16; TEMP 36.4; O2SAT 96
[2020-03-01 05:56] VITALS: RESP 20
[2020-03-01] MEDS: Omeprazole 20 MG CAPSULE.DR PO (05:56)
[2020-03-01 07:58] VITALS: BP 172/100; PULSE 81; RESP 18; TEMP 36.6; O2SAT 99
[2020-03-01 08:06] LABS: Glucose, Whole Blood 144 mg/dL (60-115)
[2020-03-01] MEDS: PHENobarbitaL 30 MG TABLET PO (08:17)
[2020-03-01] MEDS: Metoprolol Succinate ER 50 MG TAB.ER.24H PO (08:17)
[2020-03-01] MEDS: Enoxaparin Sodium 40 MG/0.4 ML SYRINGE SUBCUT (08:17)
[2020-03-01] MEDS: lisinopriL 10 MG TABLET PO (08:17)
[2020-03-01] MEDS: Sertraline HCL 50 MG TABLET PO (08:18)
--- NOTE | 2020-03-01 08:29 | P.DS_ITS ---
DS: Providers Provider Date of Service: 03/01/20 Date of admission: 02/27/20 11:29 Primary care physician: Ruma Gilbert MD Consults: 02/27/20 11:29 Consult to Gastroenterology Routine Consulting Provider: Nyla Choi Reason for consultation: ? duodenal ucler noted on ct scan DS: Diagnosis Discharge Diagnosis (1) Pancreatitis: Status: Acute (2) Alcohol withdrawal: Status: Acute (3) Alcohol abuse: Status: Acute (4) Duodenitis: Status: Acute (5) Diabetes mellitus: Status: Acute DS: Medications Discharge Medications Home Medications: Home Medications Medication Instructions Recorded Confirmed Trulicity 0.75 mg SUBCUT QWEEK 02/27/20 02/28/20 lisinopril 10 mg PO DAILY 02/27/20 02/27/20 metoprolol succinate 50 mg PO DAILY 02/27/20 02/27/20 quetiapine 300 mg PO BEDTIME 02/27/20 02/27/20 sertraline 50 mg PO DAILY 02/27/20 02/27/20 trazodone 150 mg PO BEDTIME 02/27/20 02/27/20 DS: Summary Hospital Course Hospital Course: Patient was started on aggressive fluid resuscitation and IV pain control. He was ruled out for a biliary cause of his pancreatitis with negative imaging sergo dies. He was initially given bowel rest and subsequently his diet was advanced from clear liquids to solids which she was tolerating at the time of discharge. Due to the possibility of duodenitis he was initially treated with IV PPI and gastroenterology consultation was sought. Upper endoscopy was not recommended by GI and the recommended treating his pancreatitis/alcoholism and to use low-dose oral PPI. We recommended outpatient MRI in a few months to rule out any underlying pancreatic lesion. Patient was educated on complete alcohol cessation on multiple occasions throughout his hospitalization Time Spent with Patient Time attestation: Total time spent providing and/or coordinating discharge services: Discharge coordination time: Greater than 30 minutes Physical Exam Vital Signs: Vital Signs: Last Vital Signs Temp 97.9 F 03/01/20 07:58 Pulse 81 03/01/20 07:58 Resp 18 03/01/20 07:58 BP 172/100 H 03/01/20 07:58 Pulse Ox 99 03/01/20 07:58 Body Mass Index 37.1 Const: Other: General - no acute distress, appears comfortable Cardiovascular - regular rate and rhythm, S1-S2 Lungs - normal respiratory effort, clear to auscultation bilaterally, no wheezing Abdomen - tenderness improved, no rebound or guarding, bowel sounds improved Extremities - no edema bilaterally Neuro - awake and alert, no focal deficits DS: Data Data Completed and Pending Labs on day of discharge: Laboratory Tests 02/27/20 02/27/20 02/27/20 05:14 05:14 05:14 WBC 13.8 H RBC 4.19 L Hgb 13.6 L Hct 38.9 L MCV 92.8 MCH 32.5 MCHC 35.0 RDW 11.4 Plt Count 265 MPV 9.4 Immature Gran % (Auto) 0.6 H Neut % (Auto) 79.9 H Lymph % (Auto) 9.2 L Mitchell % (Auto) 8.3 Eos % (Auto) 1.6 Baso % (Auto) 0.4 Lymph # (Auto) 1.3 Mitchell # (Auto) 1.2 Eos # (Auto) 0.2 Baso # (Auto) 0.1 Abs Immat Gran (auto) 0.08 H Absolute Neuts (auto) 11.1 H Absolute Nucleated RBC 0.000 Nucleated RBC % (auto) 0.0 Sodium 141 Potassium 3.7 Chloride 101 Carbon Dioxide 27 Anion Gap 17 BUN 8 L Creatinine 0.90 Estim Creat Clear Calc 108.6 Estimated GFR > 60 POC Glucose Random Glucose 253 H Calcium 9.8 Total Bilirubin 0.7 Direct Bilirubin 0.3 AST 26 ALT 48 H Alkaline Phosphatase 98 Troponin I High Sens 4.9 Total Protein 7.5 Albumin 4.7 Lipase 714 H Ethyl Alcohol COVID-19 (BUD) COVID-19 Clin Com 02/27/20 02/27/20 02/27/20 05:14 08:19 11:50 WBC RBC Hgb Hct MCV MCH MCHC RDW Plt Count MPV Immature Gran % (Auto) Neut % (Auto) Lymph % (Auto) Mitchell % (Auto) Eos % (Auto) Baso % (Auto) Lymph # (Auto) Mitchell # (Auto) Eos # (Auto) Baso # (Auto) Abs Immat Gran (auto) Absolute Neuts (auto) Absolute Nucleated RBC Nucleated RBC % (auto) Sodium Potassium Chloride Carbon Dioxide Anion Gap BUN Creatinine Estim Creat Clear Calc Estimated GFR POC Glucose 238 H Random Glucose Calcium Total Bilirubin Direct Bilirubin AST ALT Alkaline Phosphatase Troponin I High Sens Total Protein Albumin Lipase Ethyl Alcohol < 10 COVID-19 (BUD) Negative COVID-19 Clin Com See Note 02/28/20 02/28/20 02/28/20 06:12 06:12 07:46 WBC 16.0 H RBC 3.90 L Hgb 12.7 L Hct 36.7 L MCV 94.1 MCH 32.6 MCHC 34.6 RDW 11.7 Plt Count 266 MPV 9.8 Immature Gran % (Auto) 0.6 H Neut % (Auto) 83.2 H Lymph % (Auto) 7.1 L Mitchell % (Auto) 8.1 Eos % (Auto) 0.7 Baso % (Auto) 0.3 Lymph # (Auto) 1.1 L Mitchell # (Auto) 1.3 H Eos # (Auto) 0.1 Baso # (Auto) 0.1 Abs Immat Gran (auto) 0.10 H Absolute Neuts (auto) 13.3 H Absolute Nucleated RBC 0.000 Nucleated RBC % (auto) 0.0 Sodium 139 Potassium 3.6 Chloride 98 Carbon Dioxide 26 Anion Gap 19 BUN 4 L Creatinine 0.75 Estim Creat Clear Calc 130.3 Estimated GFR > 60 POC Glucose 241 H Random Glucose 218 H Calcium 9.4 Total Bilirubin Direct Bilirubin AST ALT Alkaline Phosphatase Troponin I High Sens Total Protein Albumin Lipase Ethyl Alcohol COVID-19 (BUD) [employer] 02/28/20 02/28/20 02/28/20 10:56 16:30 20:30 WBC RBC Hgb Hct MCV MCH MCHC RDW Plt Count MPV Immature Gran % (Auto) Neut % (Auto) Lymph % (Auto) Mitchell % (Auto) Eos % (Auto) Baso % (Auto) Lymph # (Auto) Mitchell # (Auto) Eos # (Auto) Baso # (Auto) Abs Immat Gran (auto) Absolute Neuts (auto) Absolute Nucleated RBC Nucleated RBC % (auto) Sodium Potassium Chloride Carbon Dioxide Anion Gap BUN Creatinine Estim Creat Clear Calc Estimated GFR POC Glucose 240 H 227 H 221 H Random Glucose Calcium Total Bilirubin Direct Bilirubin AST ALT Alkaline Phosphatase Troponin I High Sens Total Protein Albumin Lipase Ethyl Alcohol COVID-19 (BUD) COVID-19 [employer] 02/29/20 02/29/20 02/29/20 07:43 11:37 20:38 WBC RBC Hgb Hct MCV MCH MCHC RDW Plt Count MPV Immature Gran % (Auto) Neut % (Auto) Lymph % (Auto) Mitchell % (Auto) Eos % (Auto) Baso % (Auto) Lymph # (Auto) Mitchell # (Auto) Eos # (Auto) Baso # (Auto) Abs Immat Gran (auto) Absolute Neuts (auto) Absolute Nucleated RBC Nucleated RBC % (auto) Sodium Potassium Chloride Carbon Dioxide Anion Gap BUN Creatinine Estim Creat Clear Calc Estimated GFR POC Glucose 179 H 188 H 187 H Random Glucose Calcium Total Bilirubin Direct Bilirubin AST ALT Alkaline Phosphatase Troponin I High Sens Total Protein Albumin Lipase Ethyl Alcohol COVID-19 (BUD) COVID-19 [employer] 03/01/20 07:59 WBC RBC Hgb Hct MCV MCH MCHC RDW Plt Count MPV Immature Gran % (Auto) Neut % (Auto) Lymph % (Auto) Mitchell % (Auto) Eos % (Auto) Baso % (Auto) Lymph # (Auto) Mitchell # (Auto) Eos # (Auto) Baso # (Auto) Abs Immat Gran (auto) Absolute Neuts (auto) Absolute Nucleated RBC Nucleated RBC % (auto) Sodium Potassium Chloride Carbon Dioxide Anion Gap BUN Creatinine Estim Creat Clear Calc Estimated GFR POC Glucose 144 H Random Glucose Calcium Total Bilirubin Direct Bilirubin AST ALT Alkaline Phosphatase Troponin I High Sens Total Protein Albumin Lipase Ethyl Alcohol COVID-19 (BUD) COVID-19 [employer] Com Discharge Plan Discharge Patient Disposition: Home, Self-Care Referrals: Ruma Gilbert MD [Primary Care Provider] - Nyla Choi MD [Physician] - (call office for appt in a few months) Discharge Medications: New omeprazole 20 mg Capsule,Delayed Release(Dr/Ec) 20 mg PO BID@0630,1630 Qty: 60 RF: 0 Continued quetiapine 300 mg tablet 300 mg PO BEDTIME RF: 0 metoprolol succinate 50 mg tablet extended release 24 hr 50 mg PO DAILY RF: 0 trazodone 150 mg tablet 150 mg PO BEDTIME RF: 0 sertraline 50 mg tablet 50 mg PO DAILY RF: 0 Trulicity 0.75 mg/0.5 mL pen injector 0.75 mg subcut QWEEK RF: 0 lisinopril 10 mg tablet 10 mg PO DAILY RF: 0 Discharge Orders: Discharge Order (Routine); Ordered 03/01/20 Ordered By: Juan David Oliver Diet: diabetic diet and low fat, low cholesterol Activity on Discharge: As tolerated Visit Report Forms: Patient Portal Discharge page Care Plan Goals: To stay healthy and out of the hospital. Health Concerns: Alcohol abuse and pancreatitis Possible duodenitis Plan of Treatment: Your pancreatitis was due to drinking too much alcohol. You need to abstain from drinking alcohol completely. For your duodenitis, take Prilosec 20mg twice daily. Do not take NSAIDS (Motrin/Advil/Naproxen/Ibuprofen/ETC)
--- NOTE | 2020-03-01 08:54 | MHC.CM.PN ---
PATIENT IS DISCHARGED HOME - SELF CARE. RN AWARE OF PLAN
[2020-03-01 10:16] LABS: Glucose, Whole Blood 193 mg/dL (60-115)
--- NOTE | 2020-03-01 10:42 | MHC.CM.PN ---
PATIENT'S DISCHARGE HAS BEEN HELD. PATIENT VOMITED HIS BREAKFAST. MAY STILL BE ABLE TO RETURN HOME LATER TODAY; OTHERWISE, BY WEDNESDAY RN AWARE. IMM 02/28 IN CHART.
--- NOTE | 2020-03-01 10:43 | PC.NURSE ---
PT C/O 10/10 PAIN TO ABDOMEN. HE ATE EGGS AND PANCAKE FOR BREAKFAST. DENIES N/V AND STATES IS PASSING FLATUS. BP 175/90. DR SIERRA NOTIFIED AND NEW ORDERS FOR 1 DOSE DILAUDID IV OBTAINED AND GIVEN. WILL CONTINUE TO MONITOR
[2020-03-01 11:54] VITALS: BP 134/70; PULSE 78; RESP 18; TEMP 36.8; O2SAT 96
[2020-03-01 11:56] LABS: Glucose, Whole Blood 179 mg/dL (60-115)
== END 2020-03-01 12:51 | disposition home or self-care (01) | DRG 440 ==
LOC: HO.ED 07:07 → HO.EDOVER 11:44 → HO.S3 02-28 06:55
PROVIDERS: Admitting Provider Family Medicine; Emergency Provider Emergency Medicine; PCP Internal Medicine; Visit Provider Family Medicine
DX: K85.20 Alcohol induced acute pancreatitis without necrosis or infection (principal); F17.210 Nicotine dependence, cigarettes, uncomplicated; I10 Essential (primary) hypertension; K29.80 Duodenitis without bleeding; F10.20 Alcohol dependence, uncomplicated; Z71.6 Tobacco abuse counseling; Z20.828 Contact with and (suspected) exposure to other viral communicable diseases; Z79.899 Other long term (current) drug therapy
CPT/HCPCS: 36415; 74177; 76705; 80048; 80076; 80320; 82947; 83690; 84484; 85025; 87635; 96361; 96374; 96375; 99284; 99285; J1170; J1650; J2270; J2405; J2560; Q9967

== ENCOUNTER 2020-05-22 14:05 | Inpatient (IN) | payer OTHER, SELFPAY ==
--- NOTE | ~2020-05-22 | CT_ITS ---
EXAMINATION: CT ABDOMEN AND PELVIS WITH CONTRAST CLINICAL INFORMATION: Upper abdominal pain. Nausea/vomiting fever r/o pancreatit COMPARISON: Ultrasound abdomen 02/28/2020, CT abdomen and pelvis 02/27/2020 TECHNIQUE: Multidetector volumetric images were obtained from the superior aspect of the liver through the pubic symphysis following administration 85 mL of Omnipaque 350 intravenous contrast. Sagittal and coronal reformatted images were obtained on the technologist's workstation. Oral contrast: No This CT examination was performed using dose optimization techniques as appropriate, variously including the following: *Automated exposure control *Adjustment of mA and/or kV according to patient size (this includes techniques or standardized protocols for targeted exams where dose is matched to indication/reason for exam; i.e. extremities or head) *Use of iterative reconstruction technique DLP: 717 mGy-cm FINDINGS: LUNG BASES: The visualized lung bases are unremarkable. LIVER, GALLBLADDER, AND BILIARY TREE: The liver is normal in size, shape, and attenuation. No focal hepatic lesion or biliary ductal dilatation is present. The gallbladder is quite distended but otherwise unremarkable with no evidence of radiopaque gallstones, gallbladder wall thickening, or obvious pericholecystic inflammatory changes. PANCREAS: Again seen is fat stranding around the head of the pancreas with some mild rounding of the head. Just superior to the head of the pancreas is a tiny collection measuring 1.3 x 1.1 x 1.4 cm. There is edema of the duodenal wall in the area of the head of the pancreas. Overall, findings are very similar to those that were seen on the prior CT scan. SPLEEN: Unremarkable. ADRENAL GLANDS: Unremarkable. KIDNEYS AND URETERS: The kidneys are normal in size, shape, and attenuation. No hydronephrosis, hydroureter, or calculi seen. No perinephric stranding. BLADDER: Unremarkable. GASTROINTESTINAL TRACT: The small and large bowel are unremarkable. The appendix is unremarkable. ABDOMINAL WALL: There is evidence of prior bilateral inguinal hernia repair. A tiny periumbilical hernia is present currently. No groin hernia is seen. LYMPH NODES: There are peripancreatic and nya hepatis lymph nodes present along with some small retroperitoneal nodes which are not enlarged but prominent. Similar findings were present previously. VASCULAR: Unremarkable. Minimal calcific atherosclerotic change seen. No aneurysm. PELVIC VISCERA: Prostate and seminal vesicles appear normal. The vas deferens are calcified. OSSEOUS STRUCTURES: Mild degenerative changes present in the spine. No bony destructive lesions seen. There is a right hip joint prosthesis present. CT/CT abdomen pelvis w con IMPRESSION: Changes consistent with acute pancreatitis with peripancreatic and edema and some mild edema in the head of the pancreas with associated changes in the adjacent duodenum. A tiny high density fluid collection is present which was also present previously. Please correlate with serum amylase. As stated the last time, a duodenal ulcer disease could also possibly produce these appearances, but this is felt to be less likely.
[2020-05-22 15:13] VITALS: BP 140/84; PULSE 80; RESP 14; TEMP 37.1; O2SAT 95; BMI 29.7
--- NOTE | 2020-05-22 15:44 | PC.NURSE ---
patient universal screening prompting CAGE assessment. patient is not suicidal at this time. has struggled with SI in past. this visit, no there for anything SI related.
[2020-05-22 16:42] LABS: MANUAL DIFF FLAG NO
--- NOTE | 2020-05-22 16:42 | ED.ABDPAIN ---
HPI - Abdominal Pain General Chief Complaint: Abdominal Pain Stated Complaint: ABD PAIN Time Seen by Provider: 05/22/20 15:26 Source: patient Mode of arrival: ambulatory History of Present Illness HPI narrative: 50-year-old male with a past medical history of alcohol abuse, pancreatitis, diabetes, cocaine, hypertension, seizures, presenting to the ED complaining of upper abdominal pain radiating to back with associated nausea and vomiting x3 days. Reports symptoms feel similar to prior pancreatitis. Admits to daily beer drinking about a case a day on weekends. Reports to decreased p.o. intake, and inability to lie flat secondary to pain. Denies fever, chills, diarrhea/constipation, dysuria/hematuria MD elicited complaint: abdominal pain Related Data Home Medications Medication Instructions Recorded Confirmed metoprolol succinate 50 mg PO DAILY 02/27/20 05/22/20 quetiapine 300 mg PO BEDTIME 02/27/20 05/22/20 sertraline 50 mg PO DAILY 02/27/20 05/22/20 trazodone 150 mg PO BEDTIME 02/27/20 05/22/20 empagliflozin [Jardiance] 25 mg PO DAILY 05/22/20 05/22/20 omeprazole 20 mg PO BID 05/22/20 05/22/20 Allergies Allergy/AdvReac Type Severity Reaction Status Date / Time No Known Allergies Allergy Unverified 11/02/19 16:02 [No Known Allergies*] Review of Systems Review of Systems Constitutional: No Fever, No Chills Cardiovascular: No Chest Pain, No SOB Respiratory: No Cough, No Dyspnea Gastrointestinal: + Nausea, + Vomiting, No Diarrhea, No Constipation, + Abdominal pain Genitourinary: No Dysuria, No Hematuria, No Flank Pain Musculoskeletal: No joint pain, No Myalgias Skin: No Skin Lesions, No rash Neuro: No Weakness, No Numbness, No Headache Yes all other systems are reviewed and are negative Physical Exam Vital Signs: Vital Signs: Last Vital Signs Temp 98.9 F 05/22/20 18:48 Pulse 80 05/22/20 18:48 Resp 18 05/22/20 18:48 BP 164/95 H 05/22/20 18:48 Pulse Ox 99 05/22/20 18:48 Body Mass Index 29.7 Const: Other: In pain General: cooperative and healthy appearing Orientation/consciousness: patient oriented x3 Limitations: no limitations HENMT: Head: Yes normal to inspection Ears: hearing grossly normal bilaterally General nose exam: Normal external nose present Face and sinus: Yes normal facial exam Eyes: General: appearance normal, both eyes and all related structures EOM: EOMs intact bilaterally Neck: Neck: Yes normal visual inspection Resp: Effort & Inspection: normal respiratory effort Cardio: Rate: regular rate GI: Inspection: Yes normal to inspection Palpation (GI): Soft to palpation, Tenderness to palpation present (GI) in the epigastrum, in the LUQ and in the RUQ, Guarding due to palpation present (GI) and not rigid : General: Yes no CVA tenderness Back/Spine/Pelvis: Back: no CVA tenderness Skin: Rashes: no rashes Wounds: no wounds Neuro: General: patient oriented x3 Gait exam (Neuro): Normal gait present Extrem: General: Yes normal to inspection Course Course Course Narrative: -no leukocytosis. AST/ALT elevated. Lipase very elevated at 938 > plan for admission, CT pending >> patient still in immense pain, additional IV narcotics and IVF ordered -lactic 1.5 -1951-- CT abdomen pelvis w con IMPRESSION: Changes consistent with acute pancreatitis with peripancreatic and edema and some mild edema in the head of the pancreas with associated changes in the adjacent duodenum. A tiny high density fluid collection is present which was also present previously. Please correlate with serum amylase. As stated the last time, a duodenal ulcer disease could also possibly produce these appearances, but this is felt to be less likely. >> Dr. Chapman, surgery aware, plan to admit to medicine for further management. MDM - Abdominal Pain MDM Narrative Medical decision making narrative: 50-year-old male with a past medical history of alcohol abuse, pancreatitis, diabetes, cocaine, hypertension, seizures, presenting to the ED complaining of upper abdominal pain radiating to back with associated nausea and vomiting x3 days. On exam VSS, appears in pain, abdomen soft with upper/epigastric TTP, +guarding, no CVAT. Concern for pancreatitis vs cholecystitis/cholelithiasis. Lower concern for pancreatitis/diverticulitis or renal stone/UTI Plan: Labs, UA, CT, IVF, symptomatic treatment, reassess Medical Records Attestation: I reviewed the patient's medical records. Lab Data Attestation: I reviewed the patient's lab results. Result diagrams: 05/22/20 16:30 05/22/20 16:31 Labs: Lab Results 05/22/20 05/22/20 05/22/20 Range/Units 16:29 16:29 16:30 WBC 8.8 (4.8-10.8) X10*3/uL RBC 4.09 L (4.60-5.80) X10*6/uL Hgb 12.8 L (14.0-18.0) g/dl Hct 37.1 L (42-52) % MCV 90.7 (80-98) fL MCH 31.3 (27.0-33.0) pg MCHC 34.5 (31.0-36.0) g/dl RDW 12.1 (11.0-16.0) % Plt Count 261 (160-400) X10*3/uL MPV 9.3 L (9.4-12.4) fL Immature Gran % (Auto) 0.7 H (0.0-0.4) % Neut % (Auto) 62.2 (45-73) % Lymph % (Auto) 27.5 (20-40) % [place] % (Auto) 6.9 (2-11) % Eos % (Auto) 2.4 (0-4) % Baso % (Auto) 0.3 (0-2) % Lymph # (Auto) 2.4 (1.2-4.9) X10*3/uL [place] # (Auto) 0.6 (0.1-1.2) X10*3/uL Eos # (Auto) 0.2 (0.0-0.4) X10*3/uL Baso # (Auto) 0.0 (0.0-0.2) X10*3/uL Abs Immat Gran (auto) 0.06 H (0.00-0.03) X10*3/uL Absolute Neuts (auto) 5.4 (2.0-8.3) X10*3/uL Absolute Nucleated RBC 0.000 (0.0-0.012) X10*3/uL Nucleated RBC % (auto) 0.0 (0.0-0.2) /100WBC PT (10.8-13.0) SEC INR (0.9-1.1) APTT (24.1-38.0) SEC Sodium (135-145) mmol/L Potassium (3.3-5.1) mmol/L Chloride (96-108) mmol/L Carbon Dioxide (22-29) mmol/L Anion Gap (12-20) BUN (9-16) mg/dL Creatinine (0.5-1.4) mg/dL Estim Creat Clear Calc Estimated GFR Random Glucose (60-115) mg/dL Lactic Acid 1.5 (0.5-2.0) mmol/L Calcium (8.4-10.2) mg/dL Magnesium (1.6-2.6) mg/dL Total Bilirubin (0.0-1.0) mg/dL Direct Bilirubin (0.0-0.5) mg/dL AST (5-37) U/L ALT (0-40) U/L Alkaline Phosphatase (39-117) U/L Total Protein (6.5-8.0) g/dL Albumin (3.5-5.0) g/dL Lipase (8-78) U/L Urine Color Urine Appearance Urine pH (5.0-8.0) Ur Specific [place] (1.005-1.025) Urine Protein (NEG-TRACE) MG/DL Urine Glucose (UA) (NEG) MG/DL Urine Ketones (NEG) MG/DL Urine Blood (NEG) Urine Nitrite (NEG) Ur Leukocyte Esterase (NEG) Urine RBC (0) /HPF Urine WBC (0-4) /HPF Ur Squamous Epith Cells /LPF Amorphous Sediment /LPF Urine Bacteria /LPF Ethyl Alcohol mg/dL COVID-19 (BUD) Negative (Negative) COVID-19 Clin Com See Note 05/22/20 05/22/20 05/22/20 Range/Units 16:30 16:31 16:31 WBC (4.8-10.8) X10*3/uL RBC (4.60-5.80) X10*6/uL Hgb (14.0-18.0) g/dl Hct (42-52) % MCV (80-98) fL MCH (27.0-33.0) pg MCHC (31.0-36.0) g/dl RDW (11.0-16.0) % Plt Count (160-400) X10*3/uL MPV (9.4-12.4) fL Immature Gran % (Auto) (0.0-0.4) % Neut % (Auto) (45-73) % Lymph % (Auto) (20-40) % [place] % (Auto) (2-11) % Eos % (Auto) (0-4) % Baso % (Auto) (0-2) % Lymph # (Auto) (1.2-4.9) X10*3/uL [place] # (Auto) (0.1-1.2) X10*3/uL Eos # (Auto) (0.0-0.4) X10*3/uL Baso # (Auto) (0.0-0.2) X10*3/uL Abs Immat Gran (auto) (0.00-0.03) X10*3/uL Absolute Neuts (auto) (2.0-8.3) X10*3/uL Absolute Nucleated RBC (0.0-0.012) X10*3/uL Nucleated RBC % (auto) (0.0-0.2) /100WBC PT 10.1 L (10.8-13.0) SEC INR 0.9 (0.9-1.1) APTT 32.3 (24.1-38.0) SEC Sodium 135 (135-145) mmol/L Potassium 3.9 (3.3-5.1) mmol/L Chloride 99 (96-108) mmol/L Carbon Dioxide 28 (22-29) mmol/L Anion Gap 12 (12-20) BUN 8 L D (9-16) mg/dL Creatinine 0.87 (0.5-1.4) mg/dL Estim Creat Clear Calc 104.1 Estimated GFR > 60 Random Glucose 305 H D (60-115) mg/dL Lactic Acid (0.5-2.0) mmol/L Calcium 9.2 (8.4-10.2) mg/dL Magnesium 1.8 (1.6-2.6) mg/dL Total Bilirubin 0.4 (0.0-1.0) mg/dL Direct Bilirubin 0.2 (0.0-0.5) mg/dL AST 229 H (5-37) U/L ALT 175 H (0-40) U/L Alkaline Phosphatase 167 H D (39-117) U/L Total Protein 7.0 (6.5-8.0) g/dL Albumin 4.3 (3.5-5.0) g/dL Lipase 938 H (8-78) U/L Urine Color Urine Appearance Urine pH (5.0-8.0) Ur Specific [place] (1.005-1.025) Urine Protein (NEG-TRACE) MG/DL Urine Glucose (UA) (NEG) MG/DL Urine Ketones (NEG) MG/DL Urine Blood (NEG) Urine Nitrite (NEG) Ur Leukocyte Esterase (NEG) Urine RBC (0) /HPF Urine WBC (0-4) /HPF Ur Squamous Epith Cells /LPF Amorphous Sediment /LPF Urine Bacteria /LPF Ethyl Alcohol < 10 mg/dL COVID-19 (BUD) (Negative) COVID-19 Clin Com 05/22/20 Range/Units 18:46 WBC (4.8-10.8) X10*3/uL RBC (4.60-5.80) X10*6/uL Hgb (14.0-18.0) g/dl Hct (42-52) % MCV (80-98) fL MCH (27.0-33.0) pg MCHC (31.0-36.0) g/dl RDW (11.0-16.0) % Plt Count (160-400) X10*3/uL MPV (9.4-12.4) fL Immature Gran % (Auto) (0.0-0.4) % Neut % (Auto) (45-73) % Lymph % (Auto) (20-40) % [place] % (Auto) (2-11) % Eos % (Auto) (0-4) % Baso % (Auto) (0-2) % Lymph # (Auto) (1.2-4.9) X10*3/uL [place] # (Auto) (0.1-1.2) X10*3/uL Eos # (Auto) (0.0-0.4) X10*3/uL Baso # (Auto) (0.0-0.2) X10*3/uL Abs Immat Gran (auto) (0.00-0.03) X10*3/uL Absolute Neuts (auto) (2.0-8.3) X10*3/uL Absolute Nucleated RBC (0.0-0.012) X10*3/uL Nucleated RBC % (auto) (0.0-0.2) /100WBC PT (10.8-13.0) SEC INR (0.9-1.1) APTT (24.1-38.0) SEC Sodium (135-145) mmol/L Potassium (3.3-5.1) mmol/L Chloride (96-108) mmol/L Carbon Dioxide (22-29) mmol/L Anion Gap (12-20) BUN (9-16) mg/dL Creatinine (0.5-1.4) mg/dL Estim Creat Clear Calc Estimated GFR Random Glucose (60-115) mg/dL Lactic Acid (0.5-2.0) mmol/L Calcium (8.4-10.2) mg/dL Magnesium (1.6-2.6) mg/dL Total Bilirubin (0.0-1.0) mg/dL Direct Bilirubin (0.0-0.5) mg/dL AST (5-37) U/L ALT (0-40) U/L Alkaline Phosphatase (39-117) U/L Total Protein (6.5-8.0) g/dL Albumin (3.5-5.0) g/dL Lipase (8-78) U/L Urine Color YELLOW Urine Appearance HAZY Urine pH 7.5 (5.0-8.0) Ur Specific [place] 1.015 (1.005-1.025) Urine Protein NEG (NEG-TRACE) MG/DL Urine Glucose (UA) >=1000 H (NEG) MG/DL Urine Ketones NEG (NEG) MG/DL Urine Blood NEG (NEG) Urine Nitrite NEG (NEG) Ur Leukocyte Esterase NEG (NEG) Urine RBC 0 (0) /HPF Urine WBC 0 (0-4) /HPF Ur Squamous Epith Cells 2+ /LPF Amorphous Sediment 3+ /LPF Urine Bacteria NONE /LPF Ethyl Alcohol mg/dL COVID-19 (BUD) (Negative) COVID-19 Clin Com Discharge Plan Discharge Clinical Impression: Pancreatitis Qualifiers: Chronicity: acute Pancreatitis type: alcohol induced Acute pancreatitis complication: unspecified Qualified Code(s): K85.20 - Alcohol induced acute pancreatitis without necrosis or infection Patient Disposition: Admitted As [facility] Past Medical History Attestation statement: The following information was validated with the patient. Medical History Alcohol abuse Arthritis Cocaine abuse Diabetes mellitus Hypertension Pancreatitis Seizures Surgical History H/O hernia repair Family History Family History (Updated 02/27/20 @ 11:41 by Juan David Oliver MD) Other CAD (coronary artery disease) Diabetes mellitus Social History Social History Household Members: None Housing: House Alcohol intake: current Alcohol intake frequency: a few times a week Alcohol type: beer Smoking Status: Never smoker Second Hand Smoke Exposure: No Use of substances other than those prescribed or required for medical reasons: No Advance Directives: No Advance Directives Information Provided: Yes service: No Current occupational status: employed
[2020-05-22] MEDS: Morphine Sulfate 2 MG/ML CARTRIDGE IVPUSH ×2 (16:45→17:38)
[2020-05-22] MEDS: ondansetron HCL 4 MG/2 ML VIAL IVPUSH (16:45)
[2020-05-22] MEDS: Famotidine/PF 20 MG/2 ML VIAL IVPUSH (16:45)
[2020-05-22 16:46] LABS: Basophils Percent Auto 0.3 % (0-2); Eosinophils Absolute Auto 0.2 X10*3/uL (0.0-0.4); Eosinophils Percent Auto 2.4 % (0-4); Hematocrit 37.1 % (42-52); Hemoglobin 12.8 g/dl (14.0-18.0); Imm Gran Abs Auto 0.06 X10*3/uL (0.00-0.03); Imm Gran Pct Auto 0.7 % (0.0-0.4); Lymphocytes Absolute Auto 2.4 X10*3/uL (1.2-4.9); Lymphocytes Percent Auto 27.5 % (20-40); Mean Corpuscular HGB Conc 34.5 g/dl (31.0-36.0); Mean Corpuscular Hemoglobin 31.3 pg (27.0-33.0); Mean Corpuscular Volume 90.7 fL (80-98); Mean Platelet Volume 9.3 fL (9.4-12.4); Monocytes Absolute Auto 0.6 X10*3/uL (0.1-1.2); Monocytes Percent Auto 6.9 % (2-11); Neutrophils Absolute Auto 5.4 X10*3/uL (2.0-8.3); Neutrophils Percent Auto 62.2 % (45-73); Platelet Count 261 X10*3/uL (160-400); Red Blood Count 4.09 X10*6/uL (4.60-5.80); Red Cell Distribution Width 12.1 % (11.0-16.0); White Blood Count 8.8 X10*3/uL (4.8-10.8)
[2020-05-22] MEDS: 0.9 % Sodium Chloride 1,000 ML 999 ML IVCONT ×3 (16:46→17:41)
[2020-05-22 16:47] VITALS: BP 171/86; PULSE 78; RESP 14; O2SAT 96
[2020-05-22 16:55] LABS: COVID-19 Test Negative (Negative)
[2020-05-22 16:56] LABS: INTERNATIONAL NORM RATIO 0.9 (0.9-1.1); Prothrombin Time 10.1 SEC (10.8-13.0)
[2020-05-22 16:59] LABS: Partial Thromboplastin Time 32.3 SEC (24.1-38.0)
[2020-05-22 17:03] LABS: Lactic Acid 1.5 mmol/L (0.5-2.0)
[2020-05-22 17:13] LABS: Ethanol < 10 mg/dL
[2020-05-22 17:14] LABS: Alanine Aminotransferase 175 U/L (0-40); Albumin Level 4.3 g/dL (3.5-5.0); Alkaline Phosphatase 167 U/L (39-117); Aspartate Amino Transferase 229 U/L (5-37); Bilirubin Direct 0.2 mg/dL (0.0-0.5); Bilirubin Total 0.4 mg/dL (0.0-1.0); Calcium 9.2 mg/dL (8.4-10.2); Magnesium 1.8 mg/dL (1.6-2.6)
[2020-05-22 17:15] LABS: Anion Gap 12 (12-20); Blood Urea Nitrogen 8 mg/dL (9-16); Carbon Dioxide 28 mmol/L (22-29); Chloride 99 mmol/L (96-108); Creatinine Clr Calc Pharmacy 104.1; Estimated Glomerular Filt Rate > 60; Glucose Random 305 mg/dL (60-115); Potassium 3.9 mmol/L (3.3-5.1); Sodium 135 mmol/L (135-145)
[2020-05-22 17:29] LABS: Lipase 938 U/L (8-78)
[2020-05-22] MEDS: Ketorolac Tromethamine 15 MG/ML VIAL IVPUSH (17:39)
[2020-05-22] MEDS: iohexoL 350 MG/ML 100 ML INFUS..BTL IV (18:39)
[2020-05-22 18:48] VITALS: BP 164/95; PULSE 80; RESP 18; TEMP 37.2; O2SAT 99
[2020-05-22 19:00] LABS: Glucose Urine UA >=1000 MG/DL (NEG); Leukocyte Esterase Urine NEG (NEG); Nitrite Urine NEG (NEG); PH 7.5 (5.0-8.0); Specific Gravity - Urine 1.015 (1.005-1.025); Urine Blood NEG (NEG); Urine Ketones NEG (NEG); Urine Protein NEG (NEG-TRACE)
[2020-05-22 19:02] LABS: Appearance Urine HAZY; Color Urine YELLOW
[2020-05-22 19:13] LABS: Amorphous Sediment Urine 3+ /LPF; RBC Urine 0 /HPF (0); Squamous Epithelial Cell Urine 2+ /LPF; WBC Urine 0 /HPF (0-4)
[2020-05-22 20:00] VITALS: BP 157/88; PULSE 90; RESP 20; TEMP 36.7; O2SAT 99
--- NOTE | 2020-05-22 20:20 | PM.IMHP ---
History of Present Illness Date of Service: 05/22/20 Chief Complaint: abdominal pain 50-year-old male with history alcohol abuse, diabetes, hypertension, pancreatitis, seizures presents to the hospital with complaints of abdominal pain. Patient reports abdominal pain epigastric, 12/10, radiating to the back, associated with low appetite, nausea, no vomiting, no diarrhea, no constipation, no fever or chills. Reporting drinking a case of beer twice a week only, and has been trying to cut down on that. He has no chest pain, no shortness breath, no urinary symptoms and no lower extremity via his feeling depressed, and is very interested in quitting alcohol. On arrival to the ED hemodynamically stable with no significant abnormal vitals For WBC count of 8.8, hemoglobin of 12.8, hematocrit 37.1, CMP significant for direct bili of 0.2, AST of 229, ALT of 175, alk-phos of 167, lipase of 938, UA that is negative, COVID-19 negative, alcohol level negative. Last pancreatitis in February. CT abdomen shows changes consistent with acute pancreatitis with peripancreatic and edema and some mild edema in the head of the pancreas with associated changes in the adjacent duodenum. A tiny high-density fluid collection is present which was also present previously. Patient will be admitted for management Past medical history as below and confirmed with patient Review of Systems Review of Systems: Yes all other systems are reviewed and are negative [facility] Medical History Alcohol abuse Arthritis Cocaine abuse Diabetes mellitus Hypertension Pancreatitis Seizures Family History Other CAD (coronary artery disease) Diabetes mellitus Pertinent family history: Mother had hypertension and diabetes Surgical History H/O hernia repair Social History Household Members: None Housing: Apartment Do you presently have visiting nurse or other home services: No Alcohol intake: current Alcohol intake frequency: a few times a week Alcohol type: beer Smoking Status: Never smoker Second Hand Smoke Exposure: No Use of substances other than those prescribed or required for medical reasons: No Have you been hit, kicked, punched, or otherwise hurt by someone within the past year? If so, by whom?: No Do you feel safe in your current relationship?: No Current Relationship Is there a partner from a previous relationship who is making you feel unsafe now?: No Are you made to feel afraid or neglected: No Advance Directives: No Advance Directives Information Provided: Yes Do you have thoughts of harming others: None Do you have a plan to hurt others: No Plan Recently lost weight without trying: No service: No Current occupational status: employed Meds Allergies Allergy/AdvReac Type Severity Reaction Status Date / Time No Known Allergies Allergy Unverified 11/02/19 16:02 [No Known Allergies*] Active Medications: Current Medications Generic Name Dose Route Start Last Admin Trade Name Freq PRN Reason Stop Dose Admin Hydromorphone HCl 0.5 mg 05/22/20 20:20 Hydromorphone Hcl 0.5 Mg/0.5 Ml Syringe IVPUSH Q4H PRN Pain, Severe (Pain Scale 7-10) Morphine Sulfate 4 mg 05/22/20 20:20 Morphine Sulfate 4 Mg/Ml Cartridge IVPUSH Q4H PRN Pain, Severe (Pain Scale 7-10) Pharmacy Consult 1 each 05/22/20 16:14 Consult Rx Perform Med Rec MISCELLANE ONCE PRN Consult order Home Medications Medication Instructions Recorded Confirmed Last Taken Type metoprolol succinate 50 mg PO DAILY 02/27/20 05/22/20 05/20/20 History quetiapine 300 mg PO BEDTIME 02/27/20 05/22/20 05/21/20 History sertraline 50 mg PO DAILY 02/27/20 05/22/20 05/21/20 History trazodone 150 mg PO BEDTIME 02/27/20 05/22/20 05/21/20 History empagliflozin [Jardiance] 25 mg PO DAILY 05/22/20 05/22/20 05/20/20 History omeprazole 20 mg PO BID 05/22/20 05/22/20 Unknown History Physical Exam Vital Signs and Narrative: Vital Signs: Last Vital Signs Temp 98.9 F 05/22/20 18:48 Pulse 80 05/22/20 18:48 Resp 18 05/22/20 18:48 BP 164/95 H 05/22/20 18:48 Pulse Ox 99 05/22/20 18:48 Body Mass Index 29.7 Const: Other: Sitting upright in bed, bent over in pain General: cooperative Orientation/consciousness: patient oriented x3 Eyes: General: appearance normal, both eyes and all related structures Resp: Effort & Inspection: normal respiratory effort and able to speak in complete sentences Cardio: Rate: regular rate Rhythm: regular rhythm GI: Other: Severe tenderness on the epigastric region Palpation (GI): Soft to palpation Skin: General skin exam: no rashes or lesions noted Neuro: General: patient oriented x3 Cognition (Neuro): normal cognition Extrem: General: Yes normal to inspection and Yes no pedal edema Results Labs CBC and Chem 7: 05/23/20 04:16 05/22/20 16:31 Labs: Laboratory Results - last 24 hr 05/22/20 05/22/20 05/22/20 16:29 16:29 16:30 MCV 90.7 MCH 31.3 MCHC 34.5 RDW 12.1 Plt Count 261 MPV 9.3 L Immature Gran % (Auto) 0.7 H Neut % (Auto) 62.2 Lymph % (Auto) 27.5 [place] % (Auto) 6.9 Eos % (Auto) 2.4 Baso % (Auto) 0.3 Lymph # (Auto) 2.4 [place] # (Auto) 0.6 Eos # (Auto) 0.2 Baso # (Auto) 0.0 Abs Immat Gran (auto) 0.06 H Absolute Neuts (auto) 5.4 Absolute Nucleated RBC 0.000 Nucleated RBC % (auto) 0.0 PT INR APTT Anion Gap Estim Creat Clear Calc Estimated GFR Random Glucose Lactic Acid 1.5 Calcium Magnesium Total Bilirubin Direct Bilirubin AST ALT Alkaline Phosphatase Total Protein Albumin Lipase Urine Color Urine Appearance Urine pH Ur Specific [place] Urine Protein Urine Glucose (UA) Urine Ketones Urine Blood Urine Nitrite Ur Leukocyte Esterase Urine RBC Urine WBC Ur Squamous Epith Cells Amorphous Sediment Urine Bacteria Ethyl Alcohol COVID-19 (BUD) Negative COVID-19 Clin Com See Note 05/22/20 05/22/20 05/22/20 16:30 16:31 16:31 MCV MCH MCHC RDW Plt Count MPV Immature Gran % (Auto) Neut % (Auto) Lymph % (Auto) [place] % (Auto) Eos % (Auto) Baso % (Auto) Lymph # (Auto) [place] # (Auto) Eos # (Auto) Baso # (Auto) Abs Immat Gran (auto) Absolute Neuts (auto) Absolute Nucleated RBC Nucleated RBC % (auto) PT 10.1 L INR 0.9 APTT 32.3 Anion Gap 12 Estim Creat Clear Calc 104.1 Estimated GFR > 60 Random Glucose 305 H D Lactic Acid Calcium 9.2 Magnesium 1.8 Total Bilirubin 0.4 Direct Bilirubin 0.2 AST 229 H ALT 175 H Alkaline Phosphatase 167 H D Total Protein 7.0 Albumin 4.3 Lipase 938 H Urine Color Urine Appearance Urine pH Ur Specific [place] Urine Protein Urine Glucose (UA) Urine Ketones Urine Blood Urine Nitrite Ur Leukocyte Esterase Urine RBC Urine WBC Ur Squamous Epith Cells Amorphous Sediment Urine Bacteria Ethyl Alcohol < 10 COVID-19 (BUD) COVID-19 [employer] 05/22/20 18:46 MCV MCH MCHC RDW Plt Count MPV Immature Gran % (Auto) Neut % (Auto) Lymph % (Auto) [place] % (Auto) Eos % (Auto) Baso % (Auto) Lymph # (Auto) [place] # (Auto) Eos # (Auto) Baso # (Auto) Abs Immat Gran (auto) Absolute Neuts (auto) Absolute Nucleated RBC Nucleated RBC % (auto) PT INR APTT Anion Gap Estim Creat Clear Calc Estimated GFR Random Glucose Lactic Acid Calcium Magnesium Total Bilirubin Direct Bilirubin AST ALT Alkaline Phosphatase Total Protein Albumin Lipase Urine Color YELLOW Urine Appearance HAZY Urine pH 7.5 Ur Specific [place] 1.015 Urine Protein NEG Urine Glucose (UA) >=1000 H Urine Ketones NEG Urine Blood NEG Urine Nitrite NEG Ur Leukocyte Esterase NEG Urine RBC 0 Urine WBC 0 Ur Squamous Epith Cells 2+ Amorphous Sediment 3+ Urine Bacteria NONE Ethyl Alcohol COVID-19 (BUD) COVID-19 Clin Com Imaging Radiologist's Impressions: Impressions Abdomen/Pelvis CT 05/22/20 16:14 IMPRESSION: Changes consistent with acute pancreatitis with peripancreatic and edema and some mild edema in the head of the pancreas with associated changes in the adjacent duodenum. A tiny high density fluid collection is present which was also present previously. Please correlate with serum amylase. As stated the last time, a duodenal ulcer disease could also possibly produce these appearances, but this is felt to be less likely. Assessment and Plan (1) Pancreatitis: Qualifiers: Acute pancreatitis complication: unspecified Chronicity: acute Pancreatitis type: alcohol induced Qualified Code(s): K85.20 - Alcohol induced acute pancreatitis without necrosis or infection Status: Acute (2) Alcohol withdrawal: Status: Acute (3) Duodenitis: Status: Acute (4) Diabetes mellitus: Status: Acute (5) Alcohol abuse: Status: Acute This is a 50-year-old male with past medical history of at pancreatitis as well as alcohol abuse who presents to the hospital with complaints of abdominal pain found to have acute pancreatitis # acute pancreatitis - most likely secondary to alcohol abuse - abdominal CT also showing peripancreatic tiny fluid collection that was present previously - no leukocytosis, afebrile - will start him on aggressive IV fluid - pain control - NPO and advance diet as tolerated # alcohol abuse with potential for withdrawal - will start him on phenobarb protocol - folic acid and thiamine supple # duodenitis - most likely secondary to acute pancreatitis - patient on omeprazole b.i.d. -will continue # diabetes - hold oral anti hyperglycemics - will start him on low-dose sliding scale insulin - diabetic diet once he is able to eat - monitor glucose # hypertension - continue metoprolol DVT prophylaxis: Lovenox
[2020-05-22 20:38] VITALS: RESP 18
[2020-05-22] MEDS: Morphine Sulfate 4 MG/ML CARTRIDGE IVPUSH (20:38)
--- NOTE | 2020-05-22 20:54 | PC.NURSE ---
Report given to LUIS Holloway. Preparing for transfer to Med/Surg, room 359.
[2020-05-22] MEDS: Omeprazole 20 MG CAPSULE.DR PO (21:55)
[2020-05-22] MEDS: HYDROmorphone HCl 0.5 MG/0.5 ML SYRINGE IVPUSH (21:55)
[2020-05-22] MEDS: Enoxaparin Sodium 40 MG/0.4 ML SYRINGE SUBCUT (21:55)
[2020-05-22] MEDS: Lactated Ringers 1,000 ML 250 ML IVCONT (21:56)
[2020-05-22] MEDS: PHENobarbitaL sodium 130 MG/ML VIAL 264 MG IM (22:12)
[2020-05-22] MEDS: QUEtiapine Fumarate 300 MG TABLET PO (23:04)
[2020-05-22 23:09] VITALS: BP 151/85; PULSE 82; RESP 20; TEMP 36.7; O2SAT 97
[2020-05-23] MEDS: Morphine Sulfate 4 MG/ML CARTRIDGE IVPUSH ×2 (00:37→10:12)
[2020-05-23] MEDS: PHENobarbitaL sodium 130 MG/ML VIAL 198 MG IM ×2 (00:39→04:11)
[2020-05-23] MEDS: Lactated Ringers 1,000 ML 250 ML IVCONT ×6 (01:56→21:33)
[2020-05-23 03:45] VITALS: BP 152/82; PULSE 82; RESP 20; TEMP 36.7; O2SAT 96
[2020-05-23 04:54] LABS: MANUAL DIFF FLAG NO
[2020-05-23 04:56] LABS: Basophils Absolute Auto 0.1 X10*3/uL (0.0-0.2); Basophils Percent Auto 0.7 % (0-2); Eosinophils Absolute Auto 0.4 X10*3/uL (0.0-0.4); Eosinophils Percent Auto 3.9 % (0-4); Hematocrit 35.4 % (42-52); Hemoglobin 12.1 g/dl (14.0-18.0); Imm Gran Abs Auto 0.06 X10*3/uL (0.00-0.03); Imm Gran Pct Auto 0.7 % (0.0-0.4); Lymphocytes Absolute Auto 3.2 X10*3/uL (1.2-4.9); Lymphocytes Percent Auto 35.9 % (20-40); Mean Corpuscular HGB Conc 34.2 g/dl (31.0-36.0); Mean Corpuscular Hemoglobin 31.5 pg (27.0-33.0); Mean Corpuscular Volume 92.2 fL (80-98); Mean Platelet Volume 9.7 fL (9.4-12.4); Monocytes Absolute Auto 0.6 X10*3/uL (0.1-1.2); Monocytes Percent Auto 6.4 % (2-11); Neutrophils Absolute Auto 4.7 X10*3/uL (2.0-8.3); Neutrophils Percent Auto 52.4 % (45-73); Platelet Count 226 X10*3/uL (160-400); Red Blood Count 3.84 X10*6/uL (4.60-5.80); Red Cell Distribution Width 12.5 % (11.0-16.0)
[2020-05-23 07:16] VITALS: BP 164/104; PULSE 134; RESP 18; TEMP 36.1; O2SAT 98
[2020-05-23 07:25] LABS: Glucose, Whole Blood 211 mg/dL (60-115)
[2020-05-23] MEDS: Insulin Lispro 100 UNIT/ML 3 ML VIAL SUBCUT ×4 (07:30→20:39)
[2020-05-23] MEDS: PHENobarbitaL 15 MG TABLET 45 MG PO ×2 (07:31→20:40)
[2020-05-23] MEDS: Omeprazole 20 MG CAPSULE.DR PO ×2 (07:32→20:40)
[2020-05-23] MEDS: Folic Acid 1 MG TABLET PO (07:32)
[2020-05-23] MEDS: HYDROmorphone HCl 0.5 MG/0.5 ML SYRINGE IVPUSH ×3 (07:32→18:04)
[2020-05-23] MEDS: Metoprolol Succinate ER 50 MG TAB.ER.24H PO (07:32)
[2020-05-23] MEDS: Thiamine HCL 100 MG TABLET PO (07:32)
[2020-05-23] MEDS: 0.9 % Sodium Chloride Flush 3 ML SYRINGE IVFLUSH (07:33)
[2020-05-23] MEDS: Sertraline HCL 50 MG TABLET PO (08:17)
--- NOTE | 2020-05-23 10:59 | MHC.CM.PN ---
PATIENT LIVES BY HIMSELF. HE USES NO DME FOR AMBULATION ASSIST. PATIENT DOES NOT DRIVE AND RELIES ON [facility] FOR TRANSPORT NEEDS. NO [facility] IN THE HOME. PATIENT DOES NOT HAVE A HCP ON FILE, BUT IS WILLING TO ASSIGN ONE WHILE HERE. 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 IMM 05/23 IN CHART.
[2020-05-23 11:18] VITALS: BP 136/92; PULSE 102; RESP 18; TEMP 36.7; O2SAT 96
[2020-05-23 11:45] LABS: Glucose, Whole Blood 196 mg/dL (60-115)
--- NOTE | 2020-05-23 13:33 | HO.PM.IMPN ---
Subjective Subjective Date of Service: 05/23/20 Interval History: Acute pancreatitis Review of Systems Patient still has abdominal pain and some nausea. Denies any vomiting. Denies any weakness or numbness Denies any fever or chills Denies any diarrhea. has tremors Physical Exam Vital Signs: Vital Signs: Last Vital Signs Temp 98.1 F 05/23/20 11:18 Pulse 102 H 05/23/20 11:18 Resp 18 05/23/20 11:18 BP 136/92 H 05/23/20 11:18 Pulse Ox 96 05/23/20 11:18 Body Mass Index 29.7 Physical exam: Constitutional: Still in somewhat pain Cvs: [id number], [id number] , no murmur res: clear to auscultation ,no rhonchii or wheezing abd: no rebound or guarding ,left flank area and lower abd pain, bs present. ext pulses present , no cyanosis neuro: axo3 , nonfocal. Objective Data Current Medications Generic Name Dose Route Start Last Admin Trade Name Freq PRN Reason Stop Dose Admin Enoxaparin Sodium 40 mg 05/22/20 21:22 05/22/20 21:55 Enoxaparin Sodium 40 Mg/0.4 Ml Syringe SUBCUT 40 mg Q24H SHAGGY Administration Folic Acid 1 mg 05/23/20 09:00 05/23/20 07:32 Folic Acid 1 Mg Tablet PO 1 mg DAILY SHAGGY Administration Hydromorphone HCl 0.5 mg 05/22/20 20:20 05/23/20 07:32 Hydromorphone Hcl 0.5 Mg/0.5 Ml Syringe IVPUSH 0.5 mg Q4H PRN Administration Pain, Severe (Pain Scale 7-10) Lactated Ringer's 1,000 mls @ 250 mls/hr 05/22/20 21:22 05/23/20 10:12 Lr IVCONT 250 mls/hr .Q4H SHAGGY Administration Insulin Human Lispro 0 unit 05/23/20 07:30 05/23/20 11:56 Insulin Lispro 100 Unit/Ml 3 Ml Vial SUBCUT 2 unit QIDACHS SHAGGY Administration Protocol Medication 1 each 05/23/20 09:00 No Benzodiazepines MISCELLANE DAILY SHAGGY Metoprolol Succinate 50 mg 05/23/20 09:00 05/23/20 07:32 Metoprolol Succinate Er 50 Mg Tab.Er.24h PO 50 mg DAILY SHAGGY Administration Protocol Morphine Sulfate 4 mg 05/22/20 20:20 05/23/20 10:12 Morphine Sulfate 4 Mg/Ml Cartridge IVPUSH 4 mg Q4H PRN Administration Pain, Severe (Pain Scale 7-10) Omeprazole 20 mg 05/22/20 21:22 05/23/20 07:32 Omeprazole 20 Mg Capsule.Dr PO 20 mg BID SHAGGY Administration Pharmacy Consult 1 each 05/22/20 16:14 Consult Rx Perform Med Rec MISCELLANE ONCE PRN Consult order Phenobarbital 45 mg 05/23/20 09:00 05/23/20 07:31 Phenobarbital 15 Mg Tablet PO 05/24/20 21:01 45 mg BID SHAGGY Administration Protocol Phenobarbital 30 mg 05/25/20 09:00 Phenobarbital 30 Mg Tablet PO 05/26/20 21:01 BID SHAGGY Protocol Phenobarbital 30 mg 05/27/20 09:00 Phenobarbital 30 Mg Tablet PO 05/28/20 09:01 DAILY SHAGGY Protocol Quetiapine Fumarate 300 mg 05/22/20 21:22 05/22/20 23:04 Quetiapine Fumarate 300 Mg Tablet PO 300 mg BEDTIME SHAGGY Administration Sertraline HCl 50 mg 05/23/20 09:00 05/23/20 08:17 Sertraline Hcl 50 Mg Tablet PO 50 mg DAILY SHAGGY Administration Sodium Chloride 3 ml 05/23/20 00:00 05/23/20 07:33 0.9 % Sodium Chloride Flush 3 Ml Syringe IVFLUSH 3 ml QSHIFT SHAGGY Administration Thiamine HCl 100 mg 05/23/20 09:00 05/23/20 07:32 Thiamine Hcl 100 Mg Tablet PO 100 mg DAILY SHAGGY Administration Trazodone HCl 150 mg 05/22/20 21:22 05/22/20 22:30 Trazodone Hcl 50 Mg Tablet PO Not Given BEDTIME [facility] Labs CBC & Chem 7: 05/23/20 04:16 05/22/20 16:31 Assessment and Plan (1) Pancreatitis: Status: Acute (2) Alcohol withdrawal: Status: Acute Assessment and Plan: 50-year-old male with past medical history of at pancreatitis as well as alcohol abuse who presents to the hospital with complaints of abdominal pain found to have acute pancreatitis 1. acute pancreatitis- most likely secondary to alcohol abuse.- abdominal CT also showing peripancreatic tiny fluid collection that was present previously. start him on aggressive IV fluid,pain control Will try to put a clear liquid diet. 2. alcohol abuse with potential for withdrawal - will start him on phenobarb protocol - folic acid and thiamine supple 3. duodenitis thought to be- most likely secondary to acute pancreatitis - patient on omeprazole b.i.d. 4. diabetes- hold oral anti hyperglycemics continue on low-dose sliding scale insulin diabetic diet once he is able to eat monitor glucose 5. hypertension - continue metoprolol
[2020-05-23 15:51] VITALS: BP 133/74; PULSE 71; RESP 16; TEMP 36.6; O2SAT 97
[2020-05-23 16:13] LABS: Glucose, Whole Blood 185 mg/dL (60-115)
[2020-05-23 19:40] VITALS: BP 164/96; PULSE 83; RESP 18; TEMP 36.2; O2SAT 97
[2020-05-23 20:23] LABS: Glucose, Whole Blood 198 mg/dL (60-115)
[2020-05-23] MEDS: Enoxaparin Sodium 40 MG/0.4 ML SYRINGE SUBCUT (20:39)
[2020-05-23] MEDS: QUEtiapine Fumarate 300 MG TABLET PO (20:40)
[2020-05-23] MEDS: traZODone HCL 50 MG TABLET 150 MG PO (20:40)
[2020-05-23] MEDS: polyethylene glycoL 3350 17 GM POWD.PACK PO (21:36)
[2020-05-23] MEDS: Docusate Sodium 100 MG CAPSULE PO (21:36)
[2020-05-23 23:30] VITALS: BP 143/75; PULSE 82; RESP 16; TEMP 36.2; O2SAT 96
[2020-05-24] VITALS (7 sets, daily range): BP systolic 120–166; BP diastolic 64–98; PULSE 68–122; RESP 14–19; TEMP 36–36.7; O2SAT 96–98
[2020-05-24] MEDS: Lactated Ringers 1,000 ML 250 ML IVCONT ×5 (01:17→21:44)
[2020-05-24] MEDS: HYDROmorphone HCl 0.5 MG/0.5 ML SYRINGE IVPUSH ×4 (01:18→19:30)
[2020-05-24] MEDS: Morphine Sulfate 4 MG/ML CARTRIDGE IVPUSH ×3 (04:38→21:18)
[2020-05-24 06:45] LABS: Hematocrit 35.9 % (42-52); Hemoglobin 12.3 g/dl (14.0-18.0); Mean Corpuscular HGB Conc 34.3 g/dl (31.0-36.0); Mean Corpuscular Hemoglobin 31.9 pg (27.0-33.0); Mean Platelet Volume 9.6 fL (9.4-12.4); Platelet Count 257 X10*3/uL (160-400); Red Blood Count 3.86 X10*6/uL (4.60-5.80); Red Cell Distribution Width 12.4 % (11.0-16.0); White Blood Count 11.1 X10*3/uL (4.8-10.8)
[2020-05-24 07:15] LABS: Anion Gap 12 (12-20); Calcium 8.9 mg/dL (8.4-10.2); Carbon Dioxide 28 mmol/L (22-29); Chloride 100 mmol/L (96-108); Creatinine Clr Calc Pharmacy 125.8; Estimated Glomerular Filt Rate > 60; Glucose Random 192 mg/dL (60-115); Sodium 136 mmol/L (135-145)
[2020-05-24 07:28] LABS: Blood Urea Nitrogen 3 mg/dL (9-16)
[2020-05-24 07:40] LABS: Alanine Aminotransferase 83 U/L (0-40); Albumin Level 3.8 g/dL (3.5-5.0); Alkaline Phosphatase 115 U/L (39-117); Aspartate Amino Transferase 45 U/L (5-37); Bilirubin Direct < 0.2 mg/dL (0.0-0.5); Bilirubin Total < 0.2 mg/dL (0.0-1.0); Total Protein 6.2 g/dL (6.5-8.0)
[2020-05-24 07:45] LABS: Glucose, Whole Blood 192 mg/dL (60-115)
[2020-05-24] MEDS: Insulin Lispro 100 UNIT/ML 3 ML VIAL SUBCUT ×3 (07:58→17:16)
[2020-05-24] MEDS: PHENobarbitaL 15 MG TABLET 45 MG PO ×2 (07:59→20:21)
[2020-05-24] MEDS: Metoprolol Succinate ER 50 MG TAB.ER.24H PO (08:00)
[2020-05-24] MEDS: Sertraline HCL 50 MG TABLET PO (08:00)
[2020-05-24] MEDS: Omeprazole 20 MG CAPSULE.DR PO ×2 (08:02→20:20)
[2020-05-24] MEDS: Folic Acid 1 MG TABLET PO (08:02)
[2020-05-24] MEDS: Thiamine HCL 100 MG TABLET PO (08:02)
[2020-05-24] MEDS: polyethylene glycoL 3350 17 GM POWD.PACK PO (08:04)
[2020-05-24 12:18] LABS: Glucose, Whole Blood 306 mg/dL (60-115)
--- NOTE | 2020-05-24 13:44 | MHC.RECOVRN ---
T/w attempted to meet with pt after consult was placed through CARE Team. Pt declined to discuss recovery or alcohol use. Pt agreeable to take resources and t/w card if he would like to discuss at a different time.
[2020-05-24 16:52] LABS: Glucose, Whole Blood 261 mg/dL (60-115)
--- NOTE | 2020-05-24 17:37 | HO.PM.IMPN ---
Subjective Subjective Date of Service: 05/24/20 Interval History: abdominal pain Review of Systems Patient still has abdominal pain, nausea Patient denies any vomiting, fever chills or cough or phlegm Denies any shortness of breath or chest pain. Physical Exam Vital Signs: Vital Signs: Last Vital Signs Temp 97.2 F 05/24/20 15:32 Pulse 72 05/24/20 15:32 Resp 14 05/24/20 15:32 BP 144/82 H 05/24/20 15:32 Pulse Ox 97 05/24/20 15:32 Body Mass Index 29.7 physical exam: Constitutional: Still in somewhat pain Cvs: [id number], [id number] , no murmur res: clear to auscultation ,no rhonchii or wheezing abd: no rebound or guarding ,left flank area and lower abd pain still, bs present. ext pulses present , no cyanosis neuro: axo3 , nonfocal. Objective Data Current Medications Generic Name Dose Route Start Last Admin Trade Name Freq PRN Reason Stop Dose Admin Docusate Sodium 100 mg 05/23/20 20:43 05/23/20 21:36 Docusate Sodium 100 Mg Capsule PO 100 mg BID PRN Administration Constipation Enoxaparin Sodium 40 mg 05/22/20 21:22 05/23/20 20:39 Enoxaparin Sodium 40 Mg/0.4 Ml Syringe SUBCUT 40 mg Q24H SHAGGY Administration Folic Acid 1 mg 05/23/20 09:00 05/24/20 08:02 Folic Acid 1 Mg Tablet PO 1 mg DAILY SHAGGY Administration Hydromorphone HCl 0.5 mg 05/22/20 20:20 05/24/20 13:29 Hydromorphone Hcl 0.5 Mg/0.5 Ml Syringe IVPUSH 0.5 mg Q4H PRN Administration Pain, Severe (Pain Scale 7-10) Lactated Ringer's 1,000 mls @ 250 mls/hr 05/22/20 21:22 05/24/20 17:19 Lr IVCONT Not Given .Q4H [facility] Insulin Human Lispro 0 unit 05/23/20 07:30 05/24/20 17:16 Insulin Lispro 100 Unit/Ml 3 Ml Vial SUBCUT 6 unit QIDACHS [facility] Administration Protocol Medication 1 each 05/23/20 09:00 No Benzodiazepines MISCELLANE DAILY SHAGGY Metoprolol Succinate 50 mg 05/23/20 09:00 05/24/20 08:00 Metoprolol Succinate Er 50 Mg Tab.Er.24h PO 50 mg DAILY SHAGGY Administration Protocol Morphine Sulfate 4 mg 05/22/20 20:20 05/24/20 17:15 Morphine Sulfate 4 Mg/Ml Cartridge IVPUSH 4 mg Q4H PRN Administration Pain, Severe (Pain Scale 7-10) Omeprazole 20 mg 05/22/20 21:22 05/24/20 08:02 Omeprazole 20 Mg Capsule. PO 20 mg BID SHAGGY Administration Pharmacy Consult 1 each 05/22/20 16:14 Consult Rx Perform Med Rec MISCELLANE ONCE PRN Consult order Phenobarbital 45 mg 05/23/20 09:00 05/24/20 07:59 Phenobarbital 15 Mg Tablet PO 05/24/20 21:01 45 mg BID SHAGGY Administration Protocol Phenobarbital 30 mg 05/25/20 09:00 Phenobarbital 30 Mg Tablet PO 05/26/20 21:01 BID SHAGGY Protocol Phenobarbital 30 mg 05/27/20 09:00 Phenobarbital 30 Mg Tablet PO 05/28/20 09:01 DAILY [facility] Protocol Polyethylene Glycol 17 gm 05/23/20 20:45 05/24/20 08:04 Polyethylene Glycol 3350 17 Gm Powd.Pack PO 17 gm DAILY SHAGGY Administration Quetiapine Fumarate 300 mg 05/22/20 21:22 05/23/20 20:40 Quetiapine Fumarate 300 Mg Tablet PO 300 mg BEDTIME SHAGGY Administration Sertraline HCl 50 mg 05/23/20 09:00 05/24/20 08:00 Sertraline Hcl 50 Mg Tablet PO 50 mg DAILY SHAGGY Administration Sodium Chloride 3 ml 05/23/20 00:00 05/24/20 17:17 0.9 % Sodium Chloride Flush 3 Ml Syringe IVFLUSH Not Given QSHIFT SHAGGY Thiamine HCl 100 mg 05/23/20 09:00 05/24/20 08:02 Thiamine Hcl 100 Mg Tablet PO 100 mg DAILY SHAGGY Administration Trazodone HCl 150 mg 05/22/20 21:22 05/23/20 20:40 Trazodone Hcl 50 Mg Tablet PO 150 mg BEDTIME SHAGGY Administration Labs CBC & Chem 7: 05/24/20 06:10 05/24/20 06:10 Assessment and Plan (1) Pancreatitis: Status: Acute (2) Alcohol withdrawal: Status: Acute Assessment and Plan: 50-year-old male with past medical history of at pancreatitis as well as alcohol abuse who presents to the hospital with complaints of abdominal pain found to have acute pancreatitis 1. acute pancreatitis- most likely secondary to alcohol abuse.- abdominal CT also showing peripancreatic tiny fluid collection that was present previously. start him on aggressive IV fluid,pain control Will try to put a full liquid diet. 2. alcohol abuse with potential for withdrawal still tramulous on phenobarb protocol folic acid and thiamine supple 3. duodenitis thought to be- most likely secondary to acute pancreatitis - patient on omeprazole b.i.d. 4. diabetes- fs 190-220's hold oral anti hyperglycemics continue on low-dose sliding scale insulin diabetic diet once he is able to eat monitor glucose 5. hypertension - continue metoprolol
[2020-05-24] MEDS: QUEtiapine Fumarate 300 MG TABLET PO (20:20)
[2020-05-24] MEDS: Enoxaparin Sodium 40 MG/0.4 ML SYRINGE SUBCUT (20:20)
[2020-05-24] MEDS: traZODone HCL 50 MG TABLET 150 MG PO (20:20)
[2020-05-24 21:29] LABS: Glucose, Whole Blood 99 mg/dL (60-115)
[2020-05-25] VITALS (11 sets, daily range): BP systolic 116–154; BP diastolic 63–96; PULSE 59–85; RESP 16–19; TEMP 36.1–36.7; O2SAT 96–99
[2020-05-25] MEDS: HYDROmorphone HCl 0.5 MG/0.5 ML SYRINGE IVPUSH ×3 (02:06→12:12)
[2020-05-25] MEDS: Lactated Ringers 1,000 ML 250 ML IVCONT ×3 (02:11→10:50)
[2020-05-25] MEDS: Morphine Sulfate 4 MG/ML CARTRIDGE IVPUSH ×4 (04:36→19:47)
[2020-05-25 07:24] LABS: Glucose, Whole Blood 156 mg/dL (60-115)
[2020-05-25] MEDS: Sertraline HCL 50 MG TABLET PO (07:54)
[2020-05-25] MEDS: Folic Acid 1 MG TABLET PO (07:54)
[2020-05-25] MEDS: Omeprazole 20 MG CAPSULE.DR PO ×2 (07:54→19:49)
[2020-05-25] MEDS: polyethylene glycoL 3350 17 GM POWD.PACK PO (07:54)
[2020-05-25] MEDS: PHENobarbitaL 30 MG TABLET PO ×2 (07:55→19:49)
[2020-05-25] MEDS: Thiamine HCL 100 MG TABLET PO (07:55)
[2020-05-25] MEDS: Metoprolol Succinate ER 50 MG TAB.ER.24H PO (07:55)
[2020-05-25] MEDS: Insulin Lispro 100 UNIT/ML 3 ML VIAL SUBCUT ×3 (08:02→19:57)
[2020-05-25 08:18] LABS: Hematocrit 37.5 % (42-52); Hemoglobin 12.6 g/dl (14.0-18.0); Mean Corpuscular HGB Conc 33.6 g/dl (31.0-36.0); Mean Corpuscular Hemoglobin 31.7 pg (27.0-33.0); Mean Corpuscular Volume 94.5 fL (80-98); Mean Platelet Volume 9.9 fL (9.4-12.4); Platelet Count 264 X10*3/uL (160-400); Red Blood Count 3.97 X10*6/uL (4.60-5.80); Red Cell Distribution Width 12.4 % (11.0-16.0); White Blood Count 7.8 X10*3/uL (4.8-10.8)
[2020-05-25 08:39] LABS: Anion Gap 15 (12-20); Blood Urea Nitrogen 4 mg/dL (9-16); Calcium 9.3 mg/dL (8.4-10.2); Carbon Dioxide 28 mmol/L (22-29); Chloride 100 mmol/L (96-108); Creatinine Clr Calc Pharmacy 117.6; Estimated Glomerular Filt Rate > 60; Glucose Random 147 mg/dL (60-115); Potassium 4.5 mmol/L (3.3-5.1); Sodium 138 mmol/L (135-145)
[2020-05-25 11:19] LABS: Glucose, Whole Blood 252 mg/dL (60-115)
--- NOTE | 2020-05-25 13:44 | HO.PM.IMPN ---
Subjective Subjective Date of Service: 05/25/20 Interval History: abd pain improving, would like to try solids no N/V Physical Exam Vital Signs: Vital Signs: Last Vital Signs Temp 98.1 F 05/25/20 11:07 Pulse 72 05/25/20 11:07 Resp 19 05/25/20 12:12 BP 128/71 05/25/20 11:07 Pulse Ox 98 05/25/20 11:07 Body Mass Index 29.7 Gen: in no acute distress HEENT: sclera anicteric, moist mucus membranes Neck: supple Lungs: clear to auscultation bilaterally Heart: regular rate and rhythm, no murmurs Abd: soft, non-tender, non-distended Ext: no edema Skin: warm/well-perfused Neuro: alert and oriented x3, no focal findings Psych: appropriate affect Objective Data Current Medications Generic Name Dose Route Start Last Admin Trade Name Freq PRN Reason Stop Dose Admin Docusate Sodium 100 mg 05/23/20 20:43 05/23/20 21:36 Docusate Sodium 100 Mg Capsule PO 100 mg BID PRN Administration Constipation Enoxaparin Sodium 40 mg 05/22/20 21:22 05/24/20 20:20 Enoxaparin Sodium 40 Mg/0.4 Ml Syringe SUBCUT 40 mg Q24H SHAGGY Administration Folic Acid 1 mg 05/23/20 09:00 05/25/20 07:54 Folic Acid 1 Mg Tablet PO 1 mg DAILY SHAGGY Administration Hydromorphone HCl 0.5 mg 05/22/20 20:20 05/25/20 12:12 Hydromorphone Hcl 0.5 Mg/0.5 Ml Syringe IVPUSH 0.5 mg Q4H PRN Administration Pain, Severe (Pain Scale 7-10) Lactated Ringer's 1,000 mls @ 250 mls/hr 05/22/20 21:22 05/25/20 12:45 Lr IVCONT Not Given .Q4H [facility] Insulin Human Lispro 0 unit 05/23/20 07:30 05/25/20 11:55 Insulin Lispro 100 Unit/Ml 3 Ml Vial SUBCUT 6 unit QIDACHS [facility] Administration Protocol Medication 1 each 05/23/20 09:00 No Benzodiazepines MISCELLANE DAILY [facility] Metoprolol Succinate 50 mg 05/23/20 09:00 05/25/20 07:55 Metoprolol Succinate Er 50 Mg Tab.Er.24h PO 50 mg DAILY SHAGGY Administration Protocol Morphine Sulfate 4 mg 05/22/20 20:20 05/25/20 09:36 Morphine Sulfate 4 Mg/Ml Cartridge IVPUSH 4 mg Q4H PRN Administration Pain, Severe (Pain Scale 7-10) Omeprazole 20 mg 05/22/20 21:22 05/25/20 07:54 Omeprazole 20 Mg Capsule. PO 20 mg BID SHAGGY Administration Pharmacy Consult 1 each 05/22/20 16:14 Consult Rx Perform Med Rec MISCELLANE ONCE PRN Consult order Phenobarbital 30 mg 05/25/20 09:00 05/25/20 07:55 Phenobarbital 30 Mg Tablet PO 05/26/20 21:01 30 mg BID SHAGGY Administration Protocol Phenobarbital 30 mg 05/27/20 09:00 Phenobarbital 30 Mg Tablet PO 05/28/20 09:01 DAILY [facility]AGGY Protocol Polyethylene Glycol 17 gm 05/23/20 20:45 05/25/20 07:54 Polyethylene Glycol 3350 17 Gm Powd.Pack PO 17 gm DAILY SHAGGY Administration Quetiapine Fumarate 300 mg 05/22/20 21:22 05/24/20 20:20 Quetiapine Fumarate 300 Mg Tablet PO 300 mg BEDTIME [facility]AG[facility] Administration Sertraline HCl 50 mg 05/23/20 09:00 05/25/20 07:54 Sertraline Hcl 50 Mg Tablet PO 50 mg DAILY SHAGGY Administration Sodium Chloride 3 ml 05/23/20 00:00 05/25/20 07:43 0.9 % Sodium Chloride Flush 3 Ml Syringe IVFLUSH Not Given QSHIFT [facility] Thiamine HCl 100 mg 05/23/20 09:00 05/25/20 07:55 Thiamine Hcl 100 Mg Tablet PO 100 mg DAILY SHAGGY Administration Trazodone HCl 150 mg 05/22/20 21:22 05/24/20 20:20 Trazodone Hcl 50 Mg Tablet PO 150 mg BEDTIME SHAGGY Administration Labs CBC & Chem 7: 05/25/20 07:12 05/25/20 07:12 Labs: Laboratory Results - last 24 hr 05/24/20 05/24/20 05/25/20 16:36 21:21 07:12 WBC 7.8 RBC 3.97 L Hgb 12.6 L Hct 37.5 L MCV 94.5 MCH 31.7 MCHC 33.6 RDW 12.4 Plt Count 264 MPV 9.9 Absolute Nucleated RBC 0.000 Nucleated RBC % (auto) 0.0 Sodium Potassium Chloride Carbon Dioxide Anion Gap BUN Creatinine Estim Creat Clear Calc Estimated GFR POC Glucose 261 H 99 Random Glucose Calcium 05/25/20 05/25/20 05/25/20 07:12 07:18 11:07 WBC RBC Hgb Hct MCV MCH MCHC RDW Plt Count MPV Absolute Nucleated RBC Nucleated RBC % (auto) Sodium 138 Potassium 4.5 Chloride 100 Carbon Dioxide 28 Anion Gap 15 BUN 4 L Creatinine 0.77 Estim Creat Clear Calc 117.6 Estimated GFR > 60 POC Glucose 156 H 252 H Random Glucose 147 H Calcium 9.3 Assessment and Plan (1) Pancreatitis: Status: Acute (2) Alcohol withdrawal: Status: Acute Assessment and Plan: hospital d#4 50yo M with hx EtOH abuse, prior episodes of acute pancreatitis, admitted for acute alcoholic pancreatitis # acute EtOH pancreatitis - IV fluids, IV morphine/PO [place], try to advance diet # EtOH abuse with high risk for withdrawal - phenobarbital taper, thiamine, folic acid, counseling # duodenitis - likely due to pancreatitis, continue omeprazole bid # DM2 - correction-dose lispro # HTN - continue metoprolol # mood disorder - continue quetiapine, sertraline, and trazodone # VTE ppx - LMWH
[2020-05-25] MEDS: Lactated Ringers 1,000 ML 125 ML IVCONT (16:20)
[2020-05-25 16:37] LABS: Glucose, Whole Blood 101 mg/dL (60-115)
[2020-05-25] MEDS: traZODone HCL 50 MG TABLET 150 MG PO (19:49)
[2020-05-25] MEDS: QUEtiapine Fumarate 300 MG TABLET PO (19:49)
[2020-05-25] MEDS: Enoxaparin Sodium 40 MG/0.4 ML SYRINGE SUBCUT (19:50)
[2020-05-25 20:08] LABS: Glucose, Whole Blood 184 mg/dL (60-115)
[2020-05-26 03:31] VITALS: BP 105/68; PULSE 65; RESP 18; TEMP 36.1; O2SAT 97
[2020-05-26 07:21] LABS: Glucose, Whole Blood 158 mg/dL (60-115)
[2020-05-26 07:29] LABS: Alanine Aminotransferase 99 U/L (0-40); Albumin Level 3.7 g/dL (3.5-5.0); Alkaline Phosphatase 101 U/L (39-117); Anion Gap 14 (12-20); Aspartate Amino Transferase 77 U/L (5-37); Bilirubin Total 0.3 mg/dL (0.0-1.0); Blood Urea Nitrogen 6 mg/dL (9-16); Carbon Dioxide 27 mmol/L (22-29); Chloride 102 mmol/L (96-108); Creatinine Clr Calc Pharmacy 110.4; Estimated Glomerular Filt Rate > 60; Glucose Random 152 mg/dL (60-115); Magnesium 1.8 mg/dL (1.6-2.6); Potassium 4.2 mmol/L (3.3-5.1); Sodium 139 mmol/L (135-145); Total Protein 6.2 g/dL (6.5-8.0)
[2020-05-26 07:32] VITALS: RESP 19
[2020-05-26] MEDS: Insulin Lispro 100 UNIT/ML 3 ML VIAL SUBCUT (07:32)
[2020-05-26] MEDS: Morphine Sulfate 4 MG/ML CARTRIDGE IVPUSH (07:32)
[2020-05-26] MEDS: 0.9 % Sodium Chloride Flush 3 ML SYRINGE IVFLUSH (07:33)
[2020-05-26 07:58] VITALS: BP 138/72; PULSE 72; RESP 20; TEMP 36.6; O2SAT 95
[2020-05-26 08:33] VITALS: BP 138/72; PULSE 72
[2020-05-26] MEDS: Thiamine HCL 100 MG TABLET PO (08:33)
[2020-05-26] MEDS: Folic Acid 1 MG TABLET PO (08:33)
[2020-05-26] MEDS: Metoprolol Succinate ER 50 MG TAB.ER.24H PO (08:33)
[2020-05-26] MEDS: Omeprazole 20 MG CAPSULE.DR PO (08:33)
[2020-05-26] MEDS: Sertraline HCL 50 MG TABLET PO (08:33)
[2020-05-26] MEDS: PHENobarbitaL 30 MG TABLET PO (08:33)
--- NOTE | 2020-05-26 10:21 | MHC.RECOVSUP ---
Recovery Support note: This engineering technical writer met with patient to see if he had any questions regarding the recovery support information previously provided for him. Patient reports no questions at this time and states he will be looking into them. Patient reports he was very stressed previously and he will be finding new ways to handle his stress, including going to the [facility]. 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 Discussed outpatient therapy with patient and he reports it doesn't work. Reviewed the benefits of therapy with patient and encouraged him to reconsider as he may have a better experience with a different therapist. Patient has contact info for Recovery Support Team in the event that he has any questions regarding materials provided.
--- NOTE | 2020-05-26 11:04 | PM.DS ---
DS: Providers Provider Date of Service: 05/26/20 Date of admission: 05/22/20 20:19 Primary care physician: Ruma Gilbert MD Consults: 05/24/20 07:32 Consult to Care Team Routine Comment: Reason for consultation: alcohol withdrawal 05/25/20 13:48 Consult to Care Team Routine Comment: Reason for consultation: etoh abuse DS: Diagnosis Discharge Diagnosis (1) Pancreatitis: Status: Acute (2) Alcohol withdrawal: Status: Acute (3) Duodenitis: Status: Acute (4) Transaminasemia: Status: Acute DS: Medications Discharge Medications Home Medications: Home Medications Medication Instructions Recorded Confirmed metoprolol succinate 50 mg PO DAILY 02/27/20 05/22/20 quetiapine 300 mg PO BEDTIME 02/27/20 05/22/20 sertraline 50 mg PO DAILY 02/27/20 05/22/20 trazodone 150 mg PO BEDTIME 02/27/20 05/22/20 Jardiance 25 mg PO DAILY 05/22/20 05/22/20 omeprazole 20 mg PO BID 05/22/20 05/22/20 Previous Rx's Medication Instructions Recorded folic acid 1 mg PO DAILY #30 tab 05/26/20 hydrocodone-acetaminophen 1 tab PO Q8H PRN #10 tab 05/26/20 thiamine mononitrate (vit B1) 100 mg PO DAILY #30 tab 05/26/20 DS: Summary Hospital Course Hospital Course: from the admission history and physical by hospitalist Hernandez Romo, 05/22/20: 50-year-old male with history alcohol abuse, diabetes, hypertension, pancreatitis, seizures presents to the hospital with complaints of abdominal pain. Patient reports abdominal pain epigastric, 01/24, radiating to the back, associated with low appetite, nausea, no vomiting, no diarrhea, no constipation, no fever or chills. Reporting drinking a case of beer twice a week only, and has been trying to cut down on that. He has no chest pain, no shortness breath, no urinary symptoms and no lower extremity via his feeling depressed, and is very interested in quitting alcohol. On arrival to the ED hemodynamically stable with no significant abnormal vitals For WBC count of 8.8, hemoglobin of 12.8, hematocrit 37.1, CMP significant for direct bili of 0.2, AST of 229, ALT of 175, alk-phos of 167, lipase of 938, UA that is negative, COVID-19 negative, alcohol level negative. Last pancreatitis in February. CT abdomen shows changes consistent with acute pancreatitis with peripancreatic and edema and some mild edema in the head of the pancreas with associated changes in the adjacent duodenum. A tiny high-density fluid collection is present which was also present previously. The patient was admitted to the medical/surgical floor. He was treated with IV fluid hydration, IV morphine, and bowel rest. As his symptoms improved, his diet was gradually advanced. He was also treated with phenobarbital taper for alcohol withdrawal. Duodenitis was attributed to pancreatitis and his PPI was continued. Transaminasemia is likely due to alcohol, though hepatitis B and C serologies were drawn and should be followed up as an outpatient. He was counseled to avoid alcohol entirely and discharged home with thiamine, folate, and hydrocodone/APAP for severe pain. Time Spent with Patient Time attestation: Total time spent providing and/or coordinating discharge services: 35 Discharge coordination time: Greater than 30 minutes Physical Exam Vital Signs: Vital Signs: Last Vital Signs Temp 97.9 F 05/26/20 07:58 Pulse 72 05/26/20 08:33 Resp 20 05/26/20 07:58 BP 138/72 05/26/20 08:33 Pulse Ox 95 05/26/20 07:58 Body Mass Index 29.7 Gen: in no acute distress HEENT: sclera anicteric, moist mucus membranes Neck: supple Lungs: clear to auscultation bilaterally Heart: regular rate and rhythm, no murmurs Abd: soft, non-tender, non-distended Ext: no edema Skin: warm/well-perfused Neuro: alert and oriented x3, no focal findings Psych: appropriate affect DS: Data Data Completed and Pending Labs on day of discharge: Laboratory Results WBC 7.8 X10*3/uL (4.8-10.8) 05/25/20 07:12 RBC 3.97 X10*6/uL (4.60-5.80) L 05/25/20 07:12 Hgb 12.6 g/dl (14.0-18.0) L 05/25/20 07:12 Hct 37.5 % (42-52) L 05/25/20 07:12 MCV 94.5 fL (80-98) 05/25/20 07:12 MCH 31.7 pg (27.0-33.0) 05/25/20 07:12 MCHC 33.6 g/dl (31.0-36.0) 05/25/20 07:12 RDW 12.4 % (11.0-16.0) 05/25/20 07:12 Plt Count 264 X10*3/uL (160-400) 05/25/20 07:12 MPV 9.9 fL (9.4-12.4) 05/25/20 07:12 Immature Gran % (Auto) 0.7 % (0.0-0.4) H 05/23/20 04:16 Neut % (Auto) 52.4 % (45-73) 05/23/20 04:16 Lymph % (Auto) 35.9 % (20-40) 05/23/20 04:16 [place] % (Auto) 6.4 % (2-11) 05/23/20 04:16 Eos % (Auto) 3.9 % (0-4) 05/23/20 04:16 Baso % (Auto) 0.7 % (0-2) 05/23/20 04:16 Lymph # (Auto) 3.2 X10*3/uL (1.2-4.9) 05/23/20 04:16 [place] # (Auto) 0.6 X10*3/uL (0.1-1.2) 05/23/20 04:16 Eos # (Auto) 0.4 X10*3/uL (0.0-0.4) 05/23/20 04:16 Baso # (Auto) 0.1 X10*3/uL (0.0-0.2) 05/23/20 04:16 Abs Immat Gran (auto) 0.06 X10*3/uL (0.00-0.03) H 05/23/20 04:16 Absolute Neuts (auto) 4.7 X10*3/uL (2.0-8.3) 05/23/20 04:16 Absolute Nucleated RBC 0.000 X10*3/uL (0.0-0.012) 05/25/20 07:12 Nucleated RBC % (auto) 0.0 /100WBC (0.0-0.2) 05/25/20 07:12 PT 10.1 SEC (10.8-13.0) L 05/22/20 16:31 INR 0.9 (0.9-1.1) 05/22/20 16:31 APTT 32.3 SEC (24.1-38.0) 05/22/20 16:31 Sodium 139 mmol/L (135-145) 05/26/20 07:00 Potassium 4.2 mmol/L (3.3-5.1) 05/26/20 07:00 Chloride 102 mmol/L (96-108) 05/26/20 07:00 Carbon Dioxide 27 mmol/L (22-29) 05/26/20 07:00 Anion Gap 14 (12-20) 05/26/20 07:00 BUN 6 mg/dL (9-16) L 05/26/20 07:00 Creatinine 0.82 mg/dL (0.5-1.4) 05/26/20 07:00 Estim Creat Clear Calc 110.4 05/26/20 07:00 Estimated GFR > 60 05/26/20 07:00 POC Glucose 158 mg/dL (60-115) H 05/26/20 07:13 Random Glucose 152 mg/dL (60-115) H 05/26/20 07:00 Lactic Acid 1.5 mmol/L (0.5-2.0) 05/22/20 16:29 Calcium 9.0 mg/dL (8.4-10.2) 05/26/20 07:00 Magnesium 1.8 mg/dL (1.6-2.6) 05/26/20 07:00 Total Bilirubin 0.3 mg/dL (0.0-1.0) 05/26/20 07:00 Direct Bilirubin < 0.2 mg/dL (0.0-0.5) 05/24/20 06:10 AST 77 U/L (5-37) H 05/26/20 07:00 ALT 99 U/L (0-40) H 05/26/20 07:00 Alkaline Phosphatase 101 U/L (39-117) 05/26/20 07:00 Total Protein 6.2 g/dL (6.5-8.0) L 05/26/20 07:00 Albumin 3.7 g/dL (3.5-5.0) 05/26/20 07:00 Lipase 938 U/L (8-78) H 05/22/20 16:31 Urine Color YELLOW 05/22/20 18:46 Urine Appearance HAZY 05/22/20 18:46 Urine pH 7.5 (5.0-8.0) 05/22/20 18:46 Ur Specific [place] 1.015 (1.005-1.025) 05/22/20 18:46 Urine Protein NEG MG/DL (NEG-TRACE) 05/22/20 18:46 Urine Glucose (UA) >=1000 MG/DL (NEG) H 05/22/20 18:46 Urine Ketones NEG MG/DL (NEG) 05/22/20 18:46 Urine Blood NEG (NEG) 05/22/20 18:46 Urine Nitrite NEG (NEG) 05/22/20 18:46 Ur Leukocyte Esterase NEG (NEG) 05/22/20 18:46 Urine RBC 0 /HPF (0) 05/22/20 18:46 Urine WBC 0 /HPF (0-4) 05/22/20 18:46 Ur Squamous Epith Cells 2+ /LPF 05/22/20 18:46 Amorphous Sediment 3+ /LPF 05/22/20 18:46 Urine Bacteria NONE /LPF 05/22/20 18:46 Ethyl Alcohol < 10 mg/dL 05/22/20 16:30 COVID-19 (BUD) Negative (Negative) 05/22/20 16:29 COVID-19 Clin Com See Note 05/22/20 16:29 Impressions Abdomen/Pelvis CT 05/22/20 16:14 IMPRESSION: Changes consistent with acute pancreatitis with peripancreatic and edema and some mild edema in the head of the pancreas with associated changes in the adjacent duodenum. A tiny high density fluid collection is present which was also present previously. Please correlate with serum amylase. As stated the last time, a duodenal ulcer disease could also possibly produce these appearances, but this is felt to be less likely. Discharge Plan Discharge Anticipated Discharge Date/Time: 05/26/20 10:55 Patient Disposition: Home, Self-Care Referrals: Ruma Gilbert MD [Primary Care Provider] - Discharge Medications: New folic acid 1 mg Tablet 1 mg PO DAILY Qty: 30 RF: 0 thiamine mononitrate (vit B1) 100 mg Tablet 100 mg PO DAILY Qty: 30 RF: 0 hydrocodone-acetaminophen 5-325 mg tablet 1 tab PO Q8H PRN (Reason: severe pain (scale score 7-10)) Qty: 10 RF: 0 Continued Jardiance 25 mg tablet 25 mg PO DAILY RF: 0 omeprazole 20 mg capsule,delayed release(DR/EC) 20 mg PO BID RF: 0 quetiapine 300 mg tablet 300 mg PO BEDTIME RF: 0 metoprolol succinate 50 mg tablet extended release 24 hr 50 mg PO DAILY RF: 0 trazodone 150 mg tablet 150 mg PO BEDTIME RF: 0 sertraline 50 mg tablet 50 mg PO DAILY RF: 0 Discharge Orders: Discharge Order (Routine); Ordered 05/26/20 Ordered By: Carmen Cuenca Diet: diabetic diet and low fat, low cholesterol Activity on Discharge: no alcohol Stand Alone Forms: Patient Portal Discharge page Care Plan Goals: resolution of abdominal pain sobriety Health Concerns: pancreatitis alcoholism Plan of Treatment: bland diet, take hydrocodone/APAP as needed for severe pain only avoid alcohol recheck laboratory studies in 3-4 days: liver function profile Assessment: acute alcoholic pancreatitis, alcohol abuse with withdrawal Patient Instructions: Pancreatitis (DC), Abuse of Alcohol (DC), Alcohol Withdrawal (ED), Alcohol Dependence (DC), Alcohol Use Disorder (DC)
--- NOTE | 2020-05-26 12:10 | MHC.CM.PN ---
PATIENT WAS DISCHARGED AND LEFT FOR HOME PRIOR TO CM BEING MADE AWARE. NO IMM SIGNED, NOR WAS HCP ADDRESSED AGAIN.
[2020-05-28 08:06] LABS: HBsAGNum1 0.33 S/CO (0.00-0.99); Hepatitis B Surface Antigen Negative (Negative); ~Hepatitis B Surface Antibody NONREACTIVE (Nonreactive)
[2020-05-28 08:31] LABS: HBc Num1 0.03 S/CO (0.00-0.79); HIV AB/AG Nonreactive (Nonreactive); HIV Num 1 0.09 S/CO (0.00-0.99); Hepatitis B Core Antibody Nonreactive (Nonreactive); ~HepC Num1 0.05 S/CO (0.00-0.79); ~Hepatitis C Antibody Nonreactive (Nonreactive)
== END 2020-05-26 11:15 | disposition home or self-care (01) | DRG 439 ==
LOC: HO.ED 19:59 → HO.S3 20:38
PROVIDERS: Internal Medicine; Physician Assistant; Admitting Provider Internal Medicine; Emergency Provider Emergency Medicine Emergency Medical Services; PCP Internal Medicine; Visit Provider Family Medicine
DX: K85.20 Alcohol induced acute pancreatitis without necrosis or infection (principal); F10.139 Alcohol abuse with withdrawal, unspecified; I10 Essential (primary) hypertension; K29.80 Duodenitis without bleeding; E11.9 Type 2 diabetes mellitus without complications; R74.01 Elevation of levels of liver transaminase levels; G40.909 Epilepsy, unspecified, not intractable, without status epilepticus; Z20.822 Contact with and (suspected) exposure to COVID-19; Z79.899 Other long term (current) drug therapy
CPT/HCPCS: 36415; 74177; 80048; 80053; 80076; 80320; 81001; 81003; 82947; 83605; 83690; 83735; 85025; 85027; 85610; 85730; 86704; 86706; 86803; 87340; 87389; 87635; 96374; 96375; 99285; J1170; J1650; J1885; J2270; J2405; J2560; Q9967

== ENCOUNTER 2020-11-04 05:46 | Inpatient (IN) | payer OTHER, SELFPAY ==
--- NOTE | ~2020-11-04 | CT_ITS ---
EXAMINATION: CT ABDOMEN AND PELVIS WITH CONTRAST CLINICAL INFORMATION: Epigastric pain. History of pancreatitis. COMPARISON: Previous CT of the abdomen and pelvis, most recent May 2020 TECHNIQUE: Multidetector volumetric images were obtained from the superior aspect of the liver through the pubic symphysis following administration 85 mL of Omnipaque 350 intravenous contrast. Sagittal and coronal reformatted images were obtained on the technologist's workstation. Oral contrast: Yes This CT examination was performed using dose optimization techniques as appropriate, variously including the following: *Automated exposure control *Adjustment of mA and/or kV according to patient size (this includes techniques or standardized protocols for targeted exams where dose is matched to indication/reason for exam; i.e. extremities or head) *Use of iterative reconstruction technique DLP: 714 mGy-cm FINDINGS: LUNG BASES: The visualized lung bases are unremarkable. LIVER, GALLBLADDER, AND BILIARY TREE: The liver is normal in size, shape, and attenuation. No focal hepatic lesion or biliary ductal dilatation is present. The gallbladder is upper normal in size. No gallstones are seen. PANCREAS: There is a stranding of the fat seen surrounding the head of the pancreas and at the root of the small bowel mesentery and small amount of fluid in the left anterior pararenal fascia suggestive of changes of mild pancreatitis. These findings are similar to May 2020 exam. There is a small subcentimeter slightly low-attenuation density anterior to the fissure measuring 7 mm axial image 32 series 3. This is decreased from approximately 1 cm on prior exam and may represent the residual of previous pancreatitis. The pancreas is otherwise unremarkable. The main pancreatic duct is normal. SPLEEN: Unremarkable. ADRENAL GLANDS: Unremarkable. KIDNEYS AND URETERS: The kidneys are normal in size, shape, and attenuation. No hydronephrosis, hydroureter, or calculi seen. No perinephric stranding. BLADDER: Unremarkable. GASTROINTESTINAL TRACT: The small and large bowel are unremarkable. The appendix is unremarkable. ABDOMINAL WALL: There is an umbilical hernia containing fat. There is evidence of bilateral inguinal hernia repairs. LYMPH NODES: Normal. VASCULAR: Unremarkable. PELVIC VISCERA: Unremarkable. OSSEOUS STRUCTURES: There is a right hip replacement. There are degenerative changes of the spine. CT/CT abdomen pelvis w con IMPRESSION: Changes of mild pancreatitis similar to recent exams. Upper normal-size gallbladder. Small umbilical hernia containing fat.
[2020-11-04 05:53] VITALS: BP 149/83; PULSE 79; RESP 16; TEMP 36.6; O2SAT 97; BMI 30.7
--- NOTE | 2020-11-04 07:24 | ED_ITS ---
HPI - Abdominal Pain General Chief Complaint: Abdominal Pain Stated Complaint: ABD PAIN HX OF PANCREATITIS Time Seen by Provider: 11/04/20 06:58 History of Present Illness HPI narrative: Patient is a 50-year-old male with a history of alcohol abuse presents today with having abdominal pain in epigastric area. The pain is dull in nature radiates to the back. Happen after drinking alcohol. Positive nausea no vomiting. Patient from home. No coughing or congestion or upper respiratory symptoms. Patient had his coronavirus vaccine. Pain is sharp. Ten of 10. Similar to previous bouts of pancreatitis. No diarrhea. Related Data Home Medications Medication Instructions Recorded Confirmed metoprolol succinate 50 mg 50 mg PO DAILY 02/27/20 05/22/20 tablet,extended release 24 hr quetiapine 300 mg tablet 300 mg PO BEDTIME 02/27/20 11/04/20 trazodone 150 mg tablet 150 mg PO BEDTIME 02/27/20 11/04/20 empagliflozin 25 mg tablet 25 mg PO DAILY 05/22/20 11/04/20 (Jardiance) omeprazole 20 mg capsule,delayed 20 mg PO BID 05/22/20 05/22/20 release lisinopril 10 mg tablet 1 tab PO DAILY 11/04/20 11/04/20 sertraline 100 mg tablet 1 tab PO DAILY 11/04/20 11/04/20 Previous Rx's Medication Instructions Recorded folic acid 1 mg tablet 1 mg PO DAILY #30 tab 05/26/20 thiamine mononitrate (vit B1) 100 100 mg PO DAILY #30 tab 05/26/20 mg tablet Allergies Allergy/AdvReac Type Severity Reaction Status Date / Time No Known Allergies Allergy Unverified 11/02/19 16:02 [No Known Allergies*] Review of Systems Review of Systems Positive abdominal pain Positive nausea No fever no chills no cough no congestion or upper respiratory symptoms Yes all other systems are reviewed and are negative Physical Exam Vital Signs: Vital Signs: Last Vital Signs Temp 97.7 F 11/04/20 10:40 Pulse 73 11/04/20 10:40 Resp 18 11/04/20 10:40 BP 152/89 H 11/04/20 10:40 Pulse Ox 96 11/04/20 10:40 Body Mass Index 30.7 Appearance: Alert. Oriented X3. No acute distress. Eyes: Pupils equal, round and reactive to light. ENT: Pharynx normal. Neck: Normal inspection. Neck supple. No lymph nodes noted. No crepitus CVS: Normal heart rate and rhythm. Pulses normal. Normal S1 and S2 Respiratory: No respiratory distress. Breath sounds normal. No Wheezing. No rales Abdomen: Soft and nontender. No rigidity. No distention. good BS x4 Skin: Skin warm and dry. Normal skin color. Normal skin turgor. Extremities: No lower extremity edema. Neurovascular intact to all extremities. No Lacerations. No Rash Neuro: Oriented X 3. No motor deficit. No sensory deficit. Moving all extermities. No slurred speech MDM - Abdominal Pain MDM Narrative Medical decision making narrative: Patient's lipase is 500 consistent with pancreatitis multiple bouts of similar symptoms in the past. Patient admit to drinking alcohol prior. Likely the cause of his pancreatitis. Given pain medication IV fluids. COVID test sent. Patient pain is under control after multiple doses of Dilaudid. Will admit patient for further evaluation of his alcohol induced pancreatitis. Medical Records Attestation: I reviewed the patient's medical records. Lab Data Attestation: I reviewed the patient's lab results. Result diagrams: 11/04/20 07:56 11/04/20 07:56 Labs: Lab Results 11/04/20 11/04/20 11/04/20 Range/Units 07:56 07:56 07:56 WBC 11.7 H (4.8-10.8) X10*3/uL RBC 4.02 L (4.60-5.80) X10*6/uL Hgb 12.6 L (14.0-18.0) g/dl Hct 36.5 L (42-52) % MCV 90.8 (80-98) fL MCH 31.3 (27.0-33.0) pg MCHC 34.5 (31.0-36.0) g/dl RDW 11.9 (11.0-16.0) % Plt Count 203 (160-400) X10*3/uL MPV 9.7 (9.4-12.4) fL Immature Gran % (Auto) 0.6 H (0.0-0.4) % Neut % (Auto) 73.3 H (45-73) % Lymph % (Auto) 16.7 L (20-40) % [place] % (Auto) 7.2 (2-11) % Eos % (Auto) 1.9 (0-4) % Baso % (Auto) 0.3 (0-2) % Lymph # (Auto) 1.9 (1.2-4.9) X10*3/uL [place] # (Auto) 0.8 (0.1-1.2) X10*3/uL Eos # (Auto) 0.2 (0.0-0.4) X10*3/uL Baso # (Auto) 0.0 (0.0-0.2) X10*3/uL Abs Immat Gran (auto) 0.07 H (0.00-0.03) X10*3/uL Absolute Neuts (auto) 8.5 H (2.0-8.3) X10*3/uL Absolute Nucleated RBC 0.000 (0.0-0.012) X10*3/uL Nucleated RBC % (auto) 0.0 (0.0-0.2) /100WBC Sodium 137 (135-145) mmol/L Potassium 3.9 (3.3-5.1) mmol/L Chloride 102 (96-108) mmol/L Carbon Dioxide 24 (22-29) mmol/L Anion Gap 15 (12-20) BUN 11 D (9-16) mg/dL Creatinine 0.81 (0.5-1.4) mg/dL Estim Creat Clear Calc 113.5 Estimated GFR > 60 Random Glucose 256 H D (60-115) mg/dL Calcium 9.0 (8.4-10.2) mg/dL Total Bilirubin 1.0 (0.0-1.0) mg/dL Direct Bilirubin 0.6 H (0.0-0.5) mg/dL AST 526 H (5-37) U/L ALT 241 H (0-40) U/L Alkaline Phosphatase 114 (39-117) U/L Total Protein 6.4 L (6.5-8.0) g/dL Albumin 4.0 (3.5-5.0) g/dL Lipase 505 H (8-78) U/L Ethyl Alcohol < 10 mg/dL Discharge Plan Discharge Clinical Impression: Acute pancreatitis Patient Disposition: Admitted As Inpatient [facility] Past Medical History Medical History Alcohol abuse Alcohol withdrawal Arthritis Cocaine abuse Diabetes mellitus Duodenitis Hypertension Pancreatitis Pancreatitis Seizures Surgical History H/O hernia repair Family History Family History Other CAD (coronary artery disease) Diabetes mellitus Social History Social History Household Members: None Housing: Apartment Do you presently have visiting nurse or other home services: No Alcohol intake: current Alcohol intake frequency: a few times a week Alcohol type: beer Second Hand Smoke Exposure: No Advance Directives: No service: No Current occupational status: employed
[2020-11-04] MEDS: ondansetron HCL 4 MG/2 ML VIAL IVPUSH (07:50)
[2020-11-04] MEDS: Morphine Sulfate 4 MG/ML CARTRIDGE IVPUSH ×3 (07:52→22:53)
[2020-11-04 08:06] LABS: MANUAL DIFF FLAG NO
[2020-11-04 08:08] LABS: Basophils Percent Auto 0.3 % (0-2); Eosinophils Absolute Auto 0.2 X10*3/uL (0.0-0.4); Eosinophils Percent Auto 1.9 % (0-4); Hematocrit 36.5 % (42-52); Hemoglobin 12.6 g/dl (14.0-18.0); Imm Gran Abs Auto 0.07 X10*3/uL (0.00-0.03); Imm Gran Pct Auto 0.6 % (0.0-0.4); Lymphocytes Absolute Auto 1.9 X10*3/uL (1.2-4.9); Lymphocytes Percent Auto 16.7 % (20-40); Mean Corpuscular HGB Conc 34.5 g/dl (31.0-36.0); Mean Corpuscular Hemoglobin 31.3 pg (27.0-33.0); Mean Corpuscular Volume 90.8 fL (80-98); Mean Platelet Volume 9.7 fL (9.4-12.4); Monocytes Absolute Auto 0.8 X10*3/uL (0.1-1.2); Monocytes Percent Auto 7.2 % (2-11); Neutrophils Absolute Auto 8.5 X10*3/uL (2.0-8.3); Neutrophils Percent Auto 73.3 % (45-73); Platelet Count 203 X10*3/uL (160-400); Red Blood Count 4.02 X10*6/uL (4.60-5.80); Red Cell Distribution Width 11.9 % (11.0-16.0); White Blood Count 11.7 X10*3/uL (4.8-10.8)
[2020-11-04 08:18] LABS: Ethanol < 10 mg/dL
[2020-11-04 08:23] LABS: Alanine Aminotransferase 241 U/L (0-40); Alkaline Phosphatase 114 U/L (39-117); Anion Gap 15 (12-20); Aspartate Amino Transferase 526 U/L (5-37); Bilirubin Direct 0.6 mg/dL (0.0-0.5); Blood Urea Nitrogen 11 mg/dL (9-16); Carbon Dioxide 24 mmol/L (22-29); Chloride 102 mmol/L (96-108); Creatinine Clr Calc Pharmacy 113.5; Estimated Glomerular Filt Rate > 60; Glucose Random 256 mg/dL (60-115); Lipase 505 U/L (8-78); Potassium 3.9 mmol/L (3.3-5.1); Sodium 137 mmol/L (135-145); Total Protein 6.4 g/dL (6.5-8.0)
[2020-11-04] MEDS: iohexoL 350 MG/ML 100 ML INFUS..BTL 85 ML IV (10:20)
[2020-11-04] MEDS: HYDROmorphone HCl 0.5 MG/0.5 ML SYRINGE IVPUSH ×4 (10:38→19:59)
[2020-11-04 10:40] VITALS: BP 152/89; PULSE 73; RESP 18; TEMP 36.5; O2SAT 96
[2020-11-04 11:17] LABS: COVID-19 Test Negative (Negative); IDNOW Serial# 08D9AD1C
--- NOTE | 2020-11-04 13:12 | P.HPHOSP_ITS ---
History of Present Illness Date of Service: 11/04/20 Chief Complaint: abd pain 50M presented with abdominal pain. pain started am of admission, woke patient up from sleep. Pain is epigastric and going around back. Similar to previous pancreatitis pain. Patient drinks alcohol. He usually drinks beers, about 6 1 2oz cans, several times a week. Last drink 2 days prior to presentation. denies withdrawal symptoms. Pain is continuous, 10/10, worse with eating, associated with nausea, has not vomited, no fevers no chills no shortness of breath no chest pain. In ED CT consistent with pancreatitis. Review of Systems Review of Systems: Constitutional: Denies fever, denies Chills Eyes: denies blurry vision ENT: denies sore throat CVS: denies chest pain Respiratory: Denies dyspnea GI: See HPI : denies dysuria MSK: denies neck pain Skin: denies rash Neuro: denies specific motor weakness Psych: denies suicidal ideation Endocrine: denies heat/cold intolerance Hematologic: denies easy bleeding Allergy: denies hives [facility] Medical History (Updated 11/04/20 @ 13:23 by Stephane Silva MD) Alcohol abuse Alcohol withdrawal Arthritis Cocaine abuse Diabetes mellitus Duodenitis Hypertension Pancreatitis Pancreatitis Seizures Family History Other CAD (coronary artery disease) Diabetes mellitus Pertinent family history: denies pancreatic disease in family Surgical History H/O hernia repair Social History (Updated 11/04/20 @ 13:25 by Stephane Silva MD) Household Members: None Housing: Apartment Do you presently have visiting nurse or other home services: No Alcohol intake: current Alcohol intake frequency: a few times a week Alcohol type: beer Second Hand Smoke Exposure: No Use of substances other than those prescribed or required for medical reasons: Yes Substance Use Type: Crack/Cocaine Advance Directives: No service: No Current occupational status: employed Meds Allergies Allergy/AdvReac Type Severity Reaction Status Date / Time No Known Allergies Allergy Unverified 11/02/19 16:02 [No Known Allergies*] Active Medications: Current Medications Acetaminophen (Acetaminophen 325 Mg Tablet) 650 mg PO Q6H PRN PRN Reason: Pain, Mild (Pain Scale 1-3) Hydromorphone HCl (Hydromorphone Hcl 0.5 Mg/0.5 Ml Syringe) 0.5 mg IVPUSH Q2H PRN; Protocol PRN Reason: pain Lactated Ringer's (Lr) 1,000 mls @ 200 mls/hr IVCONT .Q5H SHAGGY Metoprolol Succinate (Metoprolol Succinate Er 50 Mg Tab.Er.24h) 50 mg PO DAILY SHAGGY; Protocol Pharmacy Consult (Consult Rx Perform Med Rec) 1 each MISCELLANE ONCE PRN PRN Reason: Consult order Quetiapine Fumarate (Quetiapine Fumarate 300 Mg Tablet) 300 mg PO BEDTIME SHAGGY Rivaroxaban (Rivaroxaban 10 Mg Tablet) 10 mg PO DAILY SHAGGY Sodium Chloride (0.9 % Sodium Chloride Flush 3 Ml Syringe) 3 ml IVFLUSH QSHIFT SHAGGY Trazodone HCl (Trazodone Hcl 50 Mg Tablet) 150 mg PO BEDTIME SHAGGY Home Medications Medication Instructions Recorded Confirmed Last Taken Type metoprolol succinate 50 mg 50 mg PO DAILY 02/27/20 11/04/20 05/20/20 History tablet,extended release 24 hr quetiapine 300 mg tablet 300 mg PO BEDTIME 02/27/20 11/04/20 05/21/20 History trazodone 150 mg tablet 150 mg PO BEDTIME 02/27/20 11/04/20 05/21/20 History empagliflozin 25 mg tablet 25 mg PO DAILY 05/22/20 11/04/20 05/20/20 History (Jardiance) lisinopril 10 mg tablet 1 tab PO DAILY 11/04/20 11/04/20 Unknown History Physical Exam Vital Signs and Narrative: Vital Signs: Last Vital Signs Temp 97.7 F 11/04/20 10:40 Pulse 73 11/04/20 10:40 Resp 18 11/04/20 10:40 BP 152/89 H 11/04/20 10:40 Pulse Ox 96 11/04/20 10:40 Body Mass Index 30.7 General: in pain HEENT: atraumatic Neck: normal to visual inspection CVS: S1, S2, RRR Resp: CTA bilateral Chest: non tender GI: soft, epigastric tenderness, non distended : no CVA tenderness Skin: no rashes Extremities: no edema Neuro: Oriented X3, grossly intact Psych: cooperative Results Labs CBC and Chem 7: 11/04/20 07:56 11/04/20 07:56 Labs: Laboratory Results - last 24 hr 11/04/20 11/04/20 11/04/20 07:56 07:56 07:56 MCV 90.8 MCH 31.3 MCHC 34.5 RDW 11.9 Plt Count 203 MPV 9.7 Immature Gran % (Auto) 0.6 H Neut % (Auto) 73.3 H Lymph % (Auto) 16.7 L [place] % (Auto) 7.2 Eos % (Auto) 1.9 Baso % (Auto) 0.3 Lymph # (Auto) 1.9 [place] # (Auto) 0.8 Eos # (Auto) 0.2 Baso # (Auto) 0.0 Abs Immat Gran (auto) 0.07 H Absolute Neuts (auto) 8.5 H Absolute Nucleated RBC 0.000 Nucleated RBC % (auto) 0.0 Anion Gap 15 Estim Creat Clear Calc 113.5 Estimated GFR > 60 Random Glucose 256 H D Calcium 9.0 Total Bilirubin 1.0 Direct Bilirubin 0.6 H AST 526 H ALT 241 H Alkaline Phosphatase 114 Total Protein 6.4 L Albumin 4.0 Lipase 505 H Ethyl Alcohol < 10 COVID-19 (BUD) COVID-19 Clin Com 11/04/20 10:39 MCV MCH MCHC RDW Plt Count MPV Immature Gran % (Auto) Neut % (Auto) Lymph % (Auto) [place] % (Auto) Eos % (Auto) Baso % (Auto) Lymph # (Auto) [place] # (Auto) Eos # (Auto) Baso # (Auto) Abs Immat Gran (auto) Absolute Neuts (auto) Absolute Nucleated RBC Nucleated RBC % (auto) Anion Gap Estim Creat Clear Calc Estimated GFR Random Glucose Calcium Total Bilirubin Direct Bilirubin AST ALT Alkaline Phosphatase Total Protein Albumin Lipase Ethyl Alcohol COVID-19 (BUD) Negative COVID-19 Clin Com See Note Imaging Radiologist's Impressions: Impressions Abdomen/Pelvis CT 11/04/20 07:21 IMPRESSION: Changes of mild pancreatitis similar to recent exams. Upper normal-size gallbladder. Small umbilical hernia containing fat. Assessment and Plan (1) Acute pancreatitis: Status: Acute (2) Diabetes mellitus: Status: Acute (3) Alcohol abuse: Status: Acute 50M presented with abdominal pain Acute alcoholic pancreatitis NPO, IV fluids, Dilaudid Monitor electrolytes Alcohol dependence Monitor for withdrawal Hold off on phenobarb for now Diabetes Insulin sliding scale, monitor point of care Hypertension Hold lisinopril Continue Toprol Quality Stroke Does the patient have a stroke diagnosis?: No VTE Prior VTE?: No VTE Risk Level:: Medical - moderate - high VTE Device Contraindication: Treatment Not Indicated VTE Drug Contraindication: N/A - Med Ordered
--- NOTE | 2020-11-04 13:27 | PHA.MEDREC ---
Pharmacy Consult ? Medication Reconciliation Pharmacy has completed the medication reconciliation.
[2020-11-04 14:23] VITALS: BP 153/69; PULSE 69; RESP 16; O2SAT 98
[2020-11-04] MEDS: Acetaminophen 325 MG TABLET 650 MG PO (15:51)
[2020-11-04 16:28] VITALS: BP 154/99; PULSE 73; RESP 18; TEMP 36.3; O2SAT 97
[2020-11-04] MEDS: Lactated Ringers 1,000 ML 200 ML IVCONT (16:32)
[2020-11-04 16:36] LABS: Glucose, Whole Blood 192 mg/dL (60-115)
[2020-11-04] MEDS: 0.9 % Sodium Chloride Flush 3 ML SYRINGE IVFLUSH (16:36)
[2020-11-04] MEDS: Insulin Lispro 100 UNIT/ML 3 ML VIAL SUBCUT ×2 (16:39→21:17)
[2020-11-04] MEDS: QUEtiapine Fumarate 300 MG TABLET PO (19:59)
[2020-11-04] MEDS: traZODone HCL 50 MG TABLET 150 MG PO (19:59)
[2020-11-04 20:00] VITALS: BP 186/88; PULSE 66; RESP 18; TEMP 36.8; O2SAT 99
[2020-11-04 20:04] LABS: Appearance Urine CLEAR; Color Urine YELLOW; Glucose Urine UA NEG (NEG); Leukocyte Esterase Urine NEG (NEG); Nitrite Urine NEG (NEG); Urine Blood NEG (NEG); Urine Ketones NEG (NEG); Urine Protein NEG (NEG-TRACE)
[2020-11-04 20:09] LABS: Bacteria Urine TRACE /LPF; RBC Urine 0 /HPF (0); Squamous Epithelial Cell Urine TRACE /LPF; WBC Urine 0 /HPF (0-4)
[2020-11-04 20:21] LABS: Glucose, Whole Blood 186 mg/dL (60-115)
[2020-11-04] MEDS: Lactated Ringers 1,000 ML 100 ML IVCONT (22:57)
[2020-11-04 23:49] VITALS: BP 189/90; PULSE 95; RESP 18; TEMP 36.6; O2SAT 96
[2020-11-05] VITALS (14 sets, daily range): BP systolic 138–193; BP diastolic 83–96; PULSE 73–98; RESP 16–22; TEMP 36.1–36.6; O2SAT 93–97
[2020-11-05] MEDS: polyethylene glycoL 3350 17 GM POWD.PACK PO ×2 (02:12→08:42)
[2020-11-05] MEDS: Morphine Sulfate 4 MG/ML CARTRIDGE IVPUSH ×10 (02:13→22:14)
[2020-11-05] MEDS: Lactated Ringers 1,000 ML 100 ML IVCONT (04:07)
[2020-11-05 05:34] LABS: Hematocrit 40.7 % (42-52); Mean Corpuscular HGB Conc 34.4 g/dl (31.0-36.0); Mean Corpuscular Hemoglobin 31.4 pg (27.0-33.0); Mean Corpuscular Volume 91.3 fL (80-98); Mean Platelet Volume 9.8 fL (9.4-12.4); Platelet Count 206 X10*3/uL (160-400); Red Blood Count 4.46 X10*6/uL (4.60-5.80); Red Cell Distribution Width 11.7 % (11.0-16.0); White Blood Count 14.1 X10*3/uL (4.8-10.8)
[2020-11-05 05:55] LABS: Alanine Aminotransferase 197 U/L (0-40); Albumin Level 4.5 g/dL (3.5-5.0); Alkaline Phosphatase 124 U/L (39-117); Anion Gap 18 (12-20); Aspartate Amino Transferase 104 U/L (5-37); Bilirubin Direct 0.3 mg/dL (0.0-0.5); Bilirubin Total 0.8 mg/dL (0.0-1.0); Blood Urea Nitrogen 5 mg/dL (9-16); Calcium 9.5 mg/dL (8.4-10.2); Carbon Dioxide 27 mmol/L (22-29); Chloride 93 mmol/L (96-108); Creatinine Clr Calc Pharmacy 120.9; Estimated Glomerular Filt Rate > 60; Glucose Fasting 235 mg/dL (60-99); Magnesium 1.5 mg/dL (1.6-2.6); Sodium 134 mmol/L (135-145); Total Protein 7.3 g/dL (6.5-8.0)
[2020-11-05] MEDS: ondansetron HCL 4 MG/2 ML VIAL IVPUSH ×3 (06:09→22:18)
[2020-11-05 08:03] LABS: Glucose, Whole Blood 223 mg/dL (60-115)
[2020-11-05] MEDS: Metoprolol Succinate ER 50 MG TAB.ER.24H PO (08:42)
[2020-11-05] MEDS: Rivaroxaban 10 MG TABLET PO (08:42)
[2020-11-05] MEDS: Insulin Lispro 100 UNIT/ML 3 ML VIAL SUBCUT ×4 (08:46→22:13)
--- NOTE | 2020-11-05 09:51 | MHC.CM.PN ---
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 D/C PLAN: HOME SELF CARE, FRIEND VS C SHUTTLE FOR TRANSPORT Original Note: CM ATTEMPTED TO MEET W/PT WHO IS REFUSING AT THIS TIME D/T PAIN, PT REPORTS HE WILL SPEAK W/CM LATER TODAY, IMM WAS REVIEWED AND SIGNED BY PT.
[2020-11-05] MEDS: Lactated Ringers 1,000 ML 200 ML IVCONT ×3 (09:52→19:53)
[2020-11-05] MEDS: PHENobarbitaL sodium 130 MG/ML VIAL 212 MG IM (10:40)
[2020-11-05] MEDS: lisinopriL 10 MG TABLET PO (10:40)
--- NOTE | 2020-11-05 11:09 | P.PNIM_ITS ---
Subjective Subjective Date of Service: 11/05/20 Interval History: the patient was seen and evaluated this morning In mild distress, does not feels comfortable complaining of pain and nausea Blood pressure running significantly high No reported other overnight events. Systemic review: No fever, chills or weakness No chest pain, palpitation No shortness of breath or coughing Abdominal pain, associated with nausea No urinary symptoms No any rash or wounds Physical Exam Vital Signs: Vital Signs: Last Vital Signs Temp 97.4 F 11/05/20 08:35 Pulse 78 11/05/20 10:40 Resp 22 H 11/05/20 10:40 BP 193/94 H 11/05/20 10:40 Pulse Ox 93 11/05/20 08:35 Body Mass Index 30.7 Const: Other: Constitutional : Alert, oriented, in mild distress from pain and withdrawal Neck : Normal inspection, Supple Cardiovascular : RRR, S1 S2, no lower extremity edema Respiratory : Fair bilateral air entry, no crackles, wheezes or rhonchi Gastrointestinal: soft, lax, Normal bowel sounds, distended, tenderness generalized with no surgical signs or rebound Skin : Warm, Dry Neurological : Alert & oriented x3, No focal deficit Objective Data Active Medications Acetaminophen (Acetaminophen 325 Mg Tablet) 650 mg PO Q6H PRN PRN Reason: Pain, Mild (Pain Scale 1-3) Last Admin: 11/04/20 15:51 Dose: 650 mg Documented by: TALI Dextrose (Dextrose 50 % 25 Gm/50 Ml Vial) 25 gm IVPUSH Q15M PRN; Protocol PRN Reason: per Hypoglycemia Standing Ord. Enoxaparin Sodium (Enoxaparin Sodium 40 Mg/0.4 Ml Syringe) 40 mg SUBCUT Q24H SHAGGY Glucose (Glucose Gel 15 Gm Gel..Gram.) 15 gm PO Q15M PRN; Protocol PRN Reason: per Hypoglycemia Standing Ord. Hydromorphone HCl (Hydromorphone Hcl 0.5 Mg/0.5 Ml Syringe) 1 mg IVPUSH Q2H PRN; Protocol PRN Reason: pain Lactated Ringer's (Lr) 1,000 mls @ 200 mls/hr IVCONT .Q5H SHAGGY Last Admin: 11/05/20 09:52 Dose: 200 mls/hr Documented by: CHAVA Insulin Human Lispro (Insulin Lispro 100 Unit/Ml 3 Ml Vial) 0 unit SUBCUT QIDACHS [facility]; Protocol Last Admin: 11/05/20 08:46 Dose: 4 unit Documented by: CHAVA Lisinopril (Lisinopril 10 Mg Tablet) 10 mg PO DAILY [facility]; Protocol Last Admin: 11/05/20 10:40 Dose: 10 mg Documented by: CHAVA Medication (No Benzodiazepines) 1 each MISCELLANE DAILY [facility] Metoprolol Succinate (Metoprolol Succinate Er 50 Mg Tab.Er.24h) 50 mg PO DAILY [facility]; Protocol Last Admin: 11/05/20 08:42 Dose: 50 mg Documented by: CHAVA Morphine Sulfate (Morphine Sulfate 4 Mg/Ml Cartridge) 4 mg IVPUSH Q2H PRN; Prot ocol PRN Reason: pain Last Admin: 11/05/20 10:40 Dose: 4 mg Documented by: CHAVA Ondansetron HCl (Ondansetron Hcl 4 Mg/2 Ml Vial) 4 mg IVPUSH Q8H PRN PRN Reason: Nausea and Vomiting Last Admin: 11/05/20 06:09 Dose: 4 mg Documented by: ANUM Pharmacy Consult (Consult Rx Perform Med Rec) 1 each MISCELLANE ONCE PRN PRN Reason: Consult order Phenobarbital (Phenobarbital 15 Mg Tablet) 45 mg PO BID [facility]; Protocol Stop: 11/07/20 21:01 Phenobarbital (Phenobarbital 30 Mg Tablet) 30 mg PO BID [facility]; Protocol Stop: 11/09/20 21:01 Phenobarbital (Phenobarbital 15 Mg Tablet) 15 mg PO DAILY [facility]; Protocol Stop: 11/11/20 09:01 Phenobarbital Sodium (Phenobarbital Sodium 130 Mg/Ml Vial) 159 mg IM Q3H [facility]; Protocol Stop: 11/05/20 17:01 Polyethylene Glycol (Polyethylene Glycol 3350 17 Gm Powd.Pack) 17 gm PO DAILY [facility] Last Admin: 11/05/20 08:42 Dose: 17 gm Documented by: CHAVA Quetiapine Fumarate (Quetiapine Fumarate 300 Mg Tablet) 300 mg PO BEDTIME [facility] Last Admin: 11/04/20 19:59 Dose: 300 mg Documented by: ANUM Sodium Chloride (0.9 % Sodium Chloride Flush 3 Ml Syringe) 3 ml IVFLUSH QSHIFT [facility] Last Admin: 11/05/20 08:42 Dose: Not Given Documented by: CHAVA Non-Admin Reason: IV Running Trazodone HCl (Trazodone Hcl 50 Mg Tablet) 150 mg PO BEDTIME SHAGGY Last Admin: 11/04/20 19:59 Dose: 150 mg Documented by: ANUM Labs CBC & Chem 7: 11/05/20 05:16 11/05/20 05:16 Labs: Laboratory Results - last 24 hr 11/04/20 11/04/20 11/04/20 10:39 16:31 19:46 MCV MCH MCHC RDW Plt Count MPV Absolute Nucleated RBC Nucleated RBC % (auto) Anion Gap Estim Creat Clear Calc Estimated GFR POC Glucose 192 H Fasting Glucose Calcium Magnesium Total Bilirubin Direct Bilirubin AST ALT Alkaline Phosphatase Total Protein Albumin Urine Color YELLOW Urine Appearance CLEAR Urine pH 6.0 Ur Specific [place] 1.020 Urine Protein NEG Urine Glucose (UA) NEG Urine Ketones NEG Urine Blood NEG Urine Nitrite NEG Ur Leukocyte Esterase NEG Urine RBC 0 Urine WBC 0 Ur Squamous Epith Cells TRACE Urine Bacteria TRACE COVID-19 (BUD) Negative COVID-19 Clin Com See Note 11/04/20 11/05/20 11/05/20 20:16 05:16 05:16 MCV 91.3 MCH 31.4 MCHC 34.4 RDW 11.7 Plt Count 206 MPV 9.8 Absolute Nucleated RBC 0.000 Nucleated RBC % (auto) 0.0 Anion Gap 18 Estim Creat Clear Calc 120.9 Estimated GFR > 60 POC Glucose 186 H Fasting Glucose 235 H Calcium 9.5 Magnesium 1.5 L Total Bilirubin 0.8 Direct Bilirubin 0.3 AST 104 H ALT 197 H Alkaline Phosphatase 124 H Total Protein 7.3 Albumin 4.5 Urine Color Urine Appearance Urine pH Ur Specific [place] Urine Protein Urine Glucose (UA) Urine Ketones Urine Blood Urine Nitrite Ur Leukocyte Esterase Urine RBC Urine WBC Ur Squamous Epith Cells Urine Bacteria COVID-19 (BUD) COVID-19 Clin Com 11/05/20 07:58 MCV MCH MCHC RDW Plt Count MPV Absolute Nucleated RBC Nucleated RBC % (auto) Anion Gap Estim Creat Clear Calc Estimated GFR POC Glucose 223 H Fasting Glucose Calcium Magnesium Total Bilirubin Direct Bilirubin AST ALT Alkaline Phosphatase Total Protein Albumin Urine Color Urine Appearance Urine pH Ur Specific [place] Urine Protein Urine Glucose (UA) Urine Ketones Urine Blood Urine Nitrite Ur Leukocyte Esterase Urine RBC Urine WBC Ur Squamous Epith Cells Urine Bacteria COVID-19 (BUD) COVID-19 Clin Com Assessment and Plan (1) Alcohol abuse: Status: Acute (2) Acute pancreatitis: Status: Acute (3) Alcohol withdrawal: Status: Acute Assessment and Plan: 50M presented with abdominal pain Acute alcoholic pancreatitis Keep NPO today continue IV fluids As needed Dilaudid As needed Zofran for nausea Monitor electrolytes Alcohol withdrawal Start phenobarbital protocol Start folic acid thiamin Monitor for response Uncontrolled hypertension Significantly elevated systolic of 190s To give a dose of hydralazine and continue home p.o. meds Diabetes Insulin sliding scale, monitor point of care Hypertension Hold lisinopril Continue Toprol DVT PPX Lovenox Quality Stroke Does the patient have a stroke diagnosis?: No VTE Prior VTE?: No VTE Risk Level:: Medical - moderate - high VTE Device Contraindication: Treatment Not Indicated VTE Drug Contraindication: N/A - Med Ordered
[2020-11-05 11:33] LABS: Glucose, Whole Blood 205 mg/dL (60-115)
[2020-11-05] MEDS: hydrALAZINE HCl 20 MG/ML VIAL 10 MG IVPUSH (12:02)
[2020-11-05] MEDS: PHENobarbitaL sodium 130 MG/ML VIAL 159 MG IM ×2 (14:15→17:10)
[2020-11-05] MEDS: 0.9 % Sodium Chloride Flush 3 ML SYRINGE IVFLUSH (15:11)
[2020-11-05 16:46] LABS: Glucose, Whole Blood 180 mg/dL (60-115)
[2020-11-05 22:10] LABS: Glucose, Whole Blood 177 mg/dL (60-115)
[2020-11-05] MEDS: traZODone HCL 50 MG TABLET 150 MG PO (22:13)
[2020-11-05] MEDS: QUEtiapine Fumarate 300 MG TABLET PO (22:13)
[2020-11-05] MEDS: Magnesium Hydrox/Alum Hydrox 30 ML ORAL.SUSP PO (22:18)
[2020-11-06] VITALS (8 sets, daily range): BP systolic 114–161; BP diastolic 57–91; PULSE 80–98; RESP 16–22; TEMP 35.5–36.2; O2SAT 95–98
[2020-11-06] MEDS: Lactated Ringers 1,000 ML 200 ML IVCONT ×5 (00:45→20:54)
[2020-11-06] MEDS: Morphine Sulfate 4 MG/ML CARTRIDGE IVPUSH ×7 (00:52→20:49)
[2020-11-06 06:34] LABS: Anion Gap 15 (12-20); Blood Urea Nitrogen 4 mg/dL (9-16); Calcium 9.1 mg/dL (8.4-10.2); Carbon Dioxide 26 mmol/L (22-29); Chloride 99 mmol/L (96-108); Creatinine Clr Calc Pharmacy 137.2; Estimated Glomerular Filt Rate > 60; Glucose Random 162 mg/dL (60-115); Potassium 3.8 mmol/L (3.3-5.1); Sodium 136 mmol/L (135-145)
[2020-11-06 07:30] LABS: Glucose, Whole Blood 162 mg/dL (60-115)
[2020-11-06] MEDS: lisinopriL 10 MG TABLET PO (07:50)
[2020-11-06] MEDS: Metoprolol Succinate ER 50 MG TAB.ER.24H PO (07:50)
[2020-11-06] MEDS: PHENobarbitaL 15 MG TABLET 45 MG PO ×2 (07:50→20:24)
[2020-11-06] MEDS: Enoxaparin Sodium 40 MG/0.4 ML SYRINGE SUBCUT (07:50)
[2020-11-06] MEDS: Insulin Lispro 100 UNIT/ML 3 ML VIAL SUBCUT ×3 (07:51→16:47)
[2020-11-06 11:15] LABS: Glucose, Whole Blood 208 mg/dL (60-115)
--- NOTE | 2020-11-06 11:21 | MHC.CM.PN ---
EMR REVIEWED, PT REMAINS ON IV PAIN MEDICATION AND PHENOBARB PROTOCOL, PT DID NOT SCORE ON CIWA AT 0800, PER HOSPITALIST PT WILL NEED ONE MORE DAY INPT AND ANTICIPATE D/C HOME TOMORROW 11/07/20. CM WILL SEE PT TO DETERMINE IF HE IS STILL DECLINING [place]. D/C PLAN: HOME SELF-CARE,
--- NOTE | 2020-11-06 11:23 | P.PNIM_ITS ---
Subjective Subjective Date of Service: 11/06/20 Interval History: The patient was seen and evaluated this morning Feels mild improvement today complaining of pain and nausea Blood pressure better controlled No reported other overnight events. Systemic review: No fever, chills or weakness No chest pain, palpitation No shortness of breath or coughing Abdominal pain, associated with nausea No urinary symptoms No any rash or wounds Physical Exam Vital Signs: Vital Signs: Last Vital Signs Temp 97.1 F 11/06/20 11:07 Pulse 86 11/06/20 11:07 Resp 17 11/06/20 11:07 BP 114/57 L 11/06/20 11:07 Pulse Ox 95 11/06/20 11:07 Body Mass Index 30.7 Const: Other: Constitutional : Alert, oriented, not in distress Neck : Normal inspection, Supple Cardiovascular : RRR, S1 S2, no lower extremity edema Respiratory : Fair bilateral air entry, no crackles, wheezes or rhonchi Gastrointestinal: soft, lax, Normal bowel sounds, distended, tenderness generalized with no surgical signs or rebound Skin : Warm, Dry Neurological : Alert & oriented x3, No focal deficit Objective Data Active Medications Acetaminophen (Acetaminophen 325 Mg Tablet) 650 mg PO Q6H PRN PRN Reason: Pain, Mild (Pain Scale 1-3) Last Admin: 11/04/20 15:51 Dose: 650 mg Documented by: TALI Al Hydroxide/Mg Hydroxide (Magnesium Hydrox/Alum Hydrox 30 Ml Oral.Susp) 30 ml PO Q4H PRN PRN Reason: Heartburn Last Admin: 11/05/20 22:18 Dose: 30 ml Documented by: COLETTEURQC Dextrose (Dextrose 50 % 25 Gm/50 Ml Vial) 25 gm IVPUSH Q15M PRN; Protocol PRN Reason: per Hypoglycemia Standing Ord. Enoxaparin Sodium (Enoxaparin Sodium 40 Mg/0.4 Ml Syringe) 40 mg SUBCUT Q24H [facility] Last Admin: 11/06/20 07:50 Dose: 40 mg Documented by: DABA Glucose (Glucose Gel 15 Gm Gel..Gram.) 15 gm PO Q15M PRN; Protocol PRN Reason: per Hypoglycemia Standing Ord. Hydromorphone HCl (Hydromorphone Hcl 0.5 Mg/0.5 Ml Syringe) 1 mg IVPUSH Q2H PRN; Protocol PRN Reason: pain Lactated Ringer's (Lr) 1,000 mls @ 200 mls/hr IVCONT .Q5H [facility] Last Infusion: 11/06/20 10:54 Dose: 0 mls/hr Documented by: FAN Insulin Human Lispro (Insulin Lispro 100 Unit/Ml 3 Ml Vial) 0 unit SUBCUT QIDACHS [facility]; Protocol Last Admin: 11/06/20 07:51 Dose: 2 unit Documented by: FAN Lisinopril (Lisinopril 10 Mg Tablet) 10 mg PO DAILY [facility]; Protocol Last Admin: 11/06/20 07:50 Dose: 10 mg Documented by: FAN Medication (No Benzodiazepines) 1 each MISCELLANE DAILY [facility] Metoprolol Succinate (Metoprolol Succinate Er 50 Mg Tab.Er.24h) 50 mg PO DAILY [facility]; Protocol Last Admin: 11/06/20 07:50 Dose: 50 mg Documented by: FAN Morphine Sulfate (Morphine Sulfate 4 Mg/Ml Cartridge) 4 mg IVPUSH Q2H PRN; Protocol PRN Reason: pain Last Admin: 11/06/20 08:33 Dose: 4 mg Documented by: FAN Ondansetron HCl (Ondansetron Hcl 4 Mg/2 Ml Vial) 4 mg IVPUSH Q8H PRN PRN Reason: Nausea and Vomiting Last Admin: 11/05/20 22:18 Dose: 4 mg Documented by: SAMUEL Pharmacy Consult (Consult Rx Perform Med Rec) 1 each MISCELLANE ONCE PRN PRN Reason: Consult order Phenobarbital (Phenobarbital 15 Mg Tablet) 45 mg PO BID [facility]; Protocol Stop: 11/07/20 21:01 Last Admin: 11/06/20 07:50 Dose: 45 mg Documented by: FAN Phenobarbital (Phenobarbital 30 Mg Tablet) 30 mg PO BID [facility]; Protocol Stop: 11/09/20 21:01 Phenobarbital (Phenobarbital 15 Mg Tablet) 15 mg PO DAILY [facility]; Protocol Stop: 11/11/20 09:01 Polyethylene Glycol (Polyethylene Glycol 3350 17 Gm Powd.Pack) 17 gm PO DAILY [facility] Last Admin: 11/06/20 07:53 Dose: Not Given Documented by: FAN Non-Admin Reason: Patient Refused Quetiapine Fumarate (Quetiapine Fumarate 300 Mg Tablet) 300 mg PO BEDTIME [facility] Last Admin: 11/05/20 22:13 Dose: 300 mg Documented by: SAMUEL Sodium Chloride (0.9 % Sodium Chloride Flush 3 Ml Syringe) 3 ml IVFLUSH QSHIFT [facility] Last Admin: 11/06/20 07:52 Dose: Not Given Documented by: FAN Non-Admin Reason: IV Running Trazodone HCl (Trazodone Hcl 50 Mg Tablet) 150 mg PO BEDTIME [facility] Last Admin: 11/05/20 22:13 Dose: 150 mg Documented by: SAMUEL Labs CBC & Chem 7: 11/05/20 05:16 11/06/20 05:17 Labs: Laboratory Results - last 24 hr 11/05/20 11/05/20 11/05/20 11:25 16:42 22:05 Anion Gap Estim Creat Clear Calc Estimated GFR POC Glucose 205 H 180 H 177 H Random Glucose Calcium 11/06/20 11/06/20 11/06/20 05:17 07:17 11:05 Anion Gap 15 Estim Creat Clear Calc 137.2 Estimated GFR > 60 POC Glucose 162 H 208 H Random Glucose 162 H D Calcium 9.1 Assessment and Plan (1) Alcohol withdrawal: Status: Acute (2) Alcohol abuse: Status: Acute (3) Acute pancreatitis: Status: Acute Assessment and Plan: 50M presented with abdominal pain Acute alcoholic pancreatitis Improving continue IV fluids As needed Dilaudid As needed Zofran for nausea Start clear liquids Alcohol withdrawal The continue phenobarbital protocol Continue folic acid thiamin Monitor for response Uncontrolled hypertension Better controlled today continue home p.o. meds Diabetes Insulin sliding scale, monitor point of care DVT PPX Lovenox Quality Stroke Does the patient have a stroke diagnosis?: No VTE Prior VTE?: No VTE Risk Level:: Medical - moderate - high VTE Device Contraindication: Treatment Not Indicated VTE Drug Contraindication: N/A - Med Ordered
[2020-11-06] MEDS: Thiamine HCL 100 MG TABLET PO (13:56)
[2020-11-06] MEDS: Folic Acid 1 MG TABLET PO (13:56)
[2020-11-06 15:48] LABS: Glucose, Whole Blood 214 mg/dL (60-115)
[2020-11-06 20:18] LABS: Glucose, Whole Blood 147 mg/dL (60-115)
[2020-11-06] MEDS: traZODone HCL 50 MG TABLET 150 MG PO (20:25)
[2020-11-06] MEDS: QUEtiapine Fumarate 300 MG TABLET PO (20:25)
[2020-11-07] VITALS (9 sets, daily range): BP systolic 119–153; BP diastolic 67–95; PULSE 71–92; RESP 16–18; TEMP 36–36.5; O2SAT 94–98
[2020-11-07] MEDS: Morphine Sulfate 4 MG/ML CARTRIDGE IVPUSH ×5 (00:15→18:40)
[2020-11-07] MEDS: Lactated Ringers 1,000 ML 200 ML IVCONT ×3 (02:10→19:53)
[2020-11-07 06:04] LABS: Hematocrit 35.1 % (42-52); Hemoglobin 11.6 g/dl (14.0-18.0); Mean Corpuscular Hemoglobin 31.6 pg (27.0-33.0); Mean Corpuscular Volume 95.6 fL (80-98); Mean Platelet Volume 10.1 fL (9.4-12.4); Platelet Count 209 X10*3/uL (160-400); Red Blood Count 3.67 X10*6/uL (4.60-5.80); Red Cell Distribution Width 12.3 % (11.0-16.0); White Blood Count 11.5 X10*3/uL (4.8-10.8)
[2020-11-07 07:03] LABS: Anion Gap 12 (12-20); Blood Urea Nitrogen 4 mg/dL (9-16); Calcium 8.6 mg/dL (8.4-10.2); Carbon Dioxide 28 mmol/L (22-29); Chloride 101 mmol/L (96-108); Creatinine Clr Calc Pharmacy 133.2; Estimated Glomerular Filt Rate > 60; Glucose Random 135 mg/dL (60-115); Potassium 3.7 mmol/L (3.3-5.1); Sodium 137 mmol/L (135-145)
[2020-11-07] MEDS: lisinopriL 10 MG TABLET PO (07:26)
[2020-11-07] MEDS: PHENobarbitaL 15 MG TABLET 45 MG PO ×2 (07:26→20:20)
[2020-11-07] MEDS: Folic Acid 1 MG TABLET PO (07:27)
[2020-11-07] MEDS: Thiamine HCL 100 MG TABLET PO (07:27)
[2020-11-07] MEDS: polyethylene glycoL 3350 17 GM POWD.PACK PO (07:27)
[2020-11-07] MEDS: Metoprolol Succinate ER 50 MG TAB.ER.24H PO (07:27)
[2020-11-07] MEDS: Enoxaparin Sodium 40 MG/0.4 ML SYRINGE SUBCUT (07:27)
[2020-11-07 07:36] LABS: Glucose, Whole Blood 167 mg/dL (60-115)
[2020-11-07] MEDS: Insulin Lispro 100 UNIT/ML 3 ML VIAL SUBCUT ×3 (08:18→20:20)
[2020-11-07 11:42] LABS: Glucose, Whole Blood 156 mg/dL (60-115)
[2020-11-07] MEDS: Acetaminophen 325 MG TABLET 650 MG PO ×2 (12:03→20:23)
[2020-11-07] MEDS: HYDROmorphone HCl 1 MG/ML SYRINGE IVPUSH ×3 (12:04→20:21)
--- NOTE | 2020-11-07 14:18 | HO.PM.IMPN ---
Subjective Subjective Date of Service: 11/07/20 Interval History: The patient was seen and evaluated this morning Feels mild improvement today complaining of pain and nausea Blood pressure better controlled No reported other overnight events. Systemic review: No fever, chills or weakness No chest pain, palpitation No shortness of breath or coughing Abdominal pain, associated with nausea No urinary symptoms No any rash or wounds Physical Exam Vital Signs: Vital Signs: Last Vital Signs Temp 96.8 F 11/07/20 11:25 Pulse 73 11/07/20 11:25 Resp 16 11/07/20 11:25 BP 134/88 11/07/20 11:25 Pulse Ox 96 11/07/20 11:25 Body Mass Index 30.7 Const: Other: Constitutional : Alert, oriented, not in distress Neck : Normal inspection, Supple Cardiovascular : RRR, S1 S2, no lower extremity edema Respiratory : Fair bilateral air entry, no crackles, wheezes or rhonchi Gastrointestinal: soft, lax, Normal bowel sounds, distended, tenderness generalized with no surgical signs or rebound Skin : Warm, Dry Neurological : Alert & oriented x3, No focal deficit Objective Data Active Medications Acetaminophen (Acetaminophen 325 Mg Tablet) 650 mg PO Q6H PRN PRN Reason: Pain, Mild (Pain Scale 1-3) Last Admin: 11/04/20 15:51 Dose: 650 mg Documented by: TALI Acetaminophen (Acetaminophen 325 Mg Tablet) 650 mg PO Q6H [facility] Last Admin: 11/07/20 12:03 Dose: 650 mg Documented by: FAN Al Hydroxide/Mg Hydroxide (Magnesium Hydrox/Alum Hydrox 30 Ml Oral.Susp) 30 ml PO Q4H PRN PRN Reason: Heartburn Last Admin: 11/05/20 22:18 Dose: 30 ml Documented by: SAMUEL Dextrose (Dextrose 50 % 25 Gm/50 Ml Vial) 25 gm IVPUSH Q15M PRN; Protocol PRN Reason: per Hypoglycemia Standing Ord. Enoxaparin Sodium (Enoxaparin Sodium 40 Mg/0.4 Ml Syringe) 40 mg SUBCUT Q24H [facility] Last Admin: 11/07/20 07:27 Dose: 40 mg Documented by: FAN Folic Acid (Folic Acid 1 Mg Tablet) 1 mg PO DAILY [facility] Last Admin: 11/07/20 07:27 Dose: 1 mg Documented by: FAN Glucose (Glucose Gel 15 Gm Gel..Gram.) 15 gm PO Q15M PRN; Protocol PRN Reason: per Hypoglycemia Standing Ord. Hydromorphone HCl (Hydromorphone Hcl 1 Mg/Ml Syringe) 1 mg IVPUSH Q4H PRN; Protocol PRN Reason: pain Last Admin: 11/07/20 12:04 Dose: 1 mg Documented by: FAN Lactated Ringer's (Lr) 1,000 mls @ 200 mls/hr IVCONT .Q5H [facility] Last Infusion: 11/07/20 11:54 Dose: 0 mls/hr Documented by: FAN Insulin Human Lispro (Insulin Lispro 100 Unit/Ml 3 Ml Vial) 0 unit SUBCUT QIDACHS [facility]; Protocol Last Admin: 11/07/20 12:03 Dose: 2 unit Documented by: FAN Lisinopril (Lisinopril 10 Mg Tablet) 10 mg PO DAILY [facility]; Protocol Last Admin: 11/07/20 07:26 Dose: 10 mg Documented by: FAN Medication (No Benzodiazepines) 1 each MISCELLANE DAILY [facility] Metoprolol Succinate (Metoprolol Succinate Er 50 Mg Tab.Er.24h) 50 mg PO DAILY [facility]; Protocol Last Admin: 11/07/20 07:27 Dose: 50 mg Documented by: FAN Morphine Sulfate (Morphine Sulfate 4 Mg/Ml Cartridge) 4 mg IVPUSH Q2H PRN; Protocol PRN Reason: pain Last Admin: 11/07/20 10:12 Dose: 4 mg Documented by: FAN Ondansetron HCl (Ondansetron Hcl 4 Mg/2 Ml Vial) 4 mg IVPUSH Q8H PRN PRN Reason: Nausea and Vomiting Last Admin: 11/05/20 22:18 Dose: 4 mg Documented by: SAMUEL Pharmacy Consult (Consult Rx Perform Med Rec) 1 each MISCELLANE ONCE PRN PRN Reason: Consult order Phenobarbital (Phenobarbital 15 Mg Tablet) 45 mg PO BID [facility]; Protocol Stop: 11/07/20 21:01 Last Admin: 11/07/20 07:26 Dose: 45 mg Documented by: FAN Phenobarbital (Phenobarbital 30 Mg Tablet) 30 mg PO BID [facility]; Protocol Stop: 11/09/20 21:01 Phenobarbital (Phenobarbital 15 Mg Tablet) 15 mg PO DAILY [facility]; Protocol Stop: 11/11/20 09:01 Polyethylene Glycol (Polyethylene Glycol 3350 17 Gm Powd.Pack) 17 gm PO DAILY [facility] Last Admin: 11/07/20 07:27 Dose: 17 gm Documented by: FAN Quetiapine Fumarate (Quetiapine Fumarate 300 Mg Tablet) 300 mg PO BEDTIME [facility] Last Admin: 11/06/20 20:25 Dose: 300 mg Documented by: ROSALIND Sodium Chloride (0.9 % Sodium Chloride Flush 3 Ml Syringe) 3 ml IVFLUSH QSHIFT [facility] Last Admin: 11/07/20 14:00 Dose: Not Given Documented by: FAN Non-Admin Reason: IV Running Thiamine HCl (Thiamine Hcl 100 Mg Tablet) 100 mg PO DAILY [facility] Last Admin: 11/07/20 07:27 Dose: 100 mg Documented by: FAN Trazodone HCl (Trazodone Hcl 50 Mg Tablet) 150 mg PO BEDTIME [facility] Last Admin: 11/06/20 20:25 Dose: 150 mg Documented by: ROSALIND Labs CBC & Chem 7: 11/07/20 05:20 11/07/20 05:20 Labs: Laboratory Results - last 24 hr 11/06/20 11/06/20 11/07/20 15:43 20:11 05:20 MCV 95.6 MCH 31.6 MCHC 33.0 RDW 12.3 Plt Count 209 MPV 10.1 Absolute Nucleated RBC 0.000 Nucleated RBC % (auto) 0.0 Anion Gap Estim Creat Clear Calc Estimated GFR POC Glucose 214 H 147 H Random Glucose Calcium 11/07/20 11/07/20 11/07/20 05:20 07:31 11:30 MCV MCH MCHC RDW Plt Count MPV Absolute Nucleated RBC Nucleated RBC % (auto) Anion Gap 12 Estim Creat Clear Calc 133.2 Estimated GFR > 60 POC Glucose 167 H 156 H Random Glucose 135 H Calcium 8.6 Assessment and Plan (1) Alcohol withdrawal: Status: Acute (2) Alcohol abuse: Status: Acute (3) Acute pancreatitis: Status: Acute Assessment and Plan: 50M presented with abdominal pain Acute alcoholic pancreatitis Improving continue IV fluids As needed Dilaudid As needed Zofran for nausea clear liquids Alcohol withdrawal continue phenobarbital protocol Continue folic acid thiamin Monitor for response Uncontrolled hypertension Better controlled continue home p.o. meds Diabetes Insulin sliding scale, monitor point of care DVT PPX Lovenox Quality Stroke Does the patient have a stroke diagnosis?: No VTE Prior VTE?: No VTE Risk Level:: Medical - moderate - high VTE Device Contraindication: Treatment Not Indicated VTE Drug Contraindication: N/A - Med Ordered
[2020-11-07 15:57] LABS: Glucose, Whole Blood 140 mg/dL (60-115)
[2020-11-07 20:08] LABS: Glucose, Whole Blood 174 mg/dL (60-115)
[2020-11-07] MEDS: QUEtiapine Fumarate 300 MG TABLET PO (20:20)
[2020-11-07] MEDS: traZODone HCL 50 MG TABLET 150 MG PO (20:20)
[2020-11-08] VITALS: BP 119/68; PULSE 68; RESP 18; TEMP 36.4; O2SAT 99
[2020-11-08] MEDS: HYDROmorphone HCl 1 MG/ML SYRINGE IVPUSH ×4 (00:08→12:56)
[2020-11-08] MEDS: Lactated Ringers 1,000 ML 200 ML IVCONT ×4 (00:09→12:56)
[2020-11-08] MEDS: Acetaminophen 325 MG TABLET 650 MG PO ×2 (03:42→11:44)
[2020-11-08 04:00] VITALS: BP 145/82; PULSE 68; RESP 18; TEMP 36.6; O2SAT 96
[2020-11-08 07:42] VITALS: BP 125/68; PULSE 73; RESP 18; TEMP 36.2; O2SAT 97
[2020-11-08 08:08] LABS: Glucose, Whole Blood 163 mg/dL (60-115)
[2020-11-08] MEDS: Enoxaparin Sodium 40 MG/0.4 ML SYRINGE SUBCUT (08:31)
[2020-11-08] MEDS: lisinopriL 10 MG TABLET PO (08:32)
[2020-11-08] MEDS: Folic Acid 1 MG TABLET PO (08:32)
[2020-11-08] MEDS: Metoprolol Succinate ER 50 MG TAB.ER.24H PO (08:32)
[2020-11-08] MEDS: Thiamine HCL 100 MG TABLET PO (08:32)
[2020-11-08] MEDS: PHENobarbitaL 30 MG TABLET PO (08:32)
[2020-11-08] MEDS: Insulin Lispro 100 UNIT/ML 3 ML VIAL SUBCUT ×2 (08:33→11:45)
--- NOTE | 2020-11-08 10:09 | P.DS_ITS ---
DS: Providers Provider Date of Service: 11/08/20 Date of admission: 11/04/20 13:09 Primary care physician: Ruma Gilbert MD DS: Diagnosis Discharge Diagnosis (1) Alcohol withdrawal: Status: Acute (2) Alcohol abuse: Status: Acute (3) Acute pancreatitis: Status: Acute DS: Summary Hospital Course Hospital Course: Chief Complaint: abd pain 50M presented with abdominal pain. pain started am of admission, woke patient up from sleep.? Pain is epigastric and going around back.? Similar to previous pancreatitis pain.? Patient drinks alcohol.? He usually drinks beers, about 6 12oz cans, several times a week.? Last drink 2 days prior to presentation. denies withdrawal symptoms.? Pain is continuous, 10/10, worse with eating, associated with nausea, has not vomited, no fevers no chills no shortness of breath no chest pain.? In ED CT consistent with pancreatitis. Hospital course: Acute alcoholic pancreatitis due to chronic alcohol abuse, treated conservatively with IVF, IV dilaudid, antiemetic and NPO and has diet has been gradually upgraded and is tolerating soft diet. Alcohol cessation has been discussed at [facility] to avoid further complication. Alcohol withdrawal--Treated with Phenobarbital per protocol and presently withouyt any signs of withdrawal Cessation disucssed, Seen by CARE team Uncontrolled hypertension--resume home medicatioon Metoprolol and Lisinopril ?Diabetes--resume Jardiance Time Spent with Patient Time attestation: Total time spent providing and/or coordinating discharge services: Discharge coordination time: Greater than 30 minutes Quality: Stroke Does the patient have a stroke diagnosis?: No Physical Exam Vital Signs: Vital Signs: Last Vital Signs Temp 97.2 F 11/08/20 07:42 Pulse 73 11/08/20 07:42 Resp 18 11/08/20 07:42 BP 125/68 11/08/20 07:42 Pulse Ox 97 11/08/20 07:42 Body Mass Index 30.7 General: AO X 3, no acute distress Resp: CTA bilateral CVS: S1,S2,RRR GI: +BS, mild tenderness, no guarding, no rebound Skin: No rash Neuro: motor grossly intact Psych: appropriate affect DS: Data Data Completed and Pending Completed studies during hospitalization [Text1]: Procedures Detoxification Services for Substance Abuse Treatment (05/22/20) Labs on day of discharge: Laboratory Results - last 24 hr 11/07/20 11/07/20 11/07/20 11:30 15:33 20:01 POC Glucose 156 H 140 H 174 H 11/08/20 07:28 POC Glucose 163 H Discharge Plan Discharge Anticipated Discharge Date/Time: 11/08/20 10:08 Patient Disposition: Home, Self-Care Discharge Diagnosis: Acute pancreatitis, alcohol withdwaral Referrals: Ruma Gilbert MD [Primary Care Provider] - 1 Week Discharge Medications: Continued Jardiance 25 mg tablet 25 mg PO DAILY RF: 0 folic acid 1 mg Tablet 1 mg PO DAILY Qty: 30 RF: 0 thiamine mononitrate (vit B1) 100 mg Tablet 100 mg PO DAILY Qty: 30 RF: 0 quetiapine 300 mg tablet 300 mg PO BEDTIME RF: 0 metoprolol succinate 50 mg tablet extended release 24 hr 50 mg PO DAILY RF: 0 trazodone 150 mg tablet 150 mg PO BEDTIME RF: 0 lisinopril 10 mg tablet 1 tab PO DAILY RF: 0 Discharge Orders: Discharge Order (Routine); Ordered 11/08/20 Ordered By: Rigo Nguyen Diet: advance to usual diet Activity on Discharge: As tolerated Stand Alone Forms: Patient Portal Discharge page Care Plan Goals: to be sober Health Concerns: alcoholim Plan of Treatment: stay sober, avoid alcohol, will make pancreatitis worse. follow up with Doctor, call for appointment Assessment: as above Discharge Date/Time: 11/08/20 15:29
--- NOTE | 2020-11-08 10:14 | HO.PM.IMPN ---
Subjective Subjective Date of Service: 11/08/20 Interval History: Follow-up on acute pancreatitis. Still has some abdominal pain but better Review of Systems no fever, mild abd pain Physical Exam Vital Signs: Vital Signs: Last Vital Signs Temp 97.2 F 11/08/20 07:42 Pulse 73 11/08/20 07:42 Resp 18 11/08/20 07:42 BP 125/68 11/08/20 07:42 Pulse Ox 97 11/08/20 07:42 Body Mass Index 30.7 General: AO X 3, no acute distress Resp:? CTA bilateral CVS: S1,S2,RRR GI: +BS, mild tenderness, no guarding, no rebound Skin: No rash Neuro:? motor grossly intact Psych: appropriate affect Objective Data Active Medications Acetaminophen (Acetaminophen 325 Mg Tablet) 650 mg PO Q6H PRN PRN Reason: Pain, Mild (Pain Scale 1-3) Last Admin: 11/04/20 15:51 Dose: 650 mg Documented by: TALI Acetaminophen (Acetaminophen 325 Mg Tablet) 650 mg PO Q6H [facility] Last Admin: 11/08/20 03:42 Dose: 650 mg Documented by: JETHRO Al Hydroxide/Mg Hydroxide (Magnesium Hydrox/Alum Hydrox 30 Ml Oral.Susp) 30 ml PO Q4H PRN PRN Reason: Heartburn Last Admin: 11/05/20 22:18 Dose: 30 ml Documented by: SAMUEL Dextrose (Dextrose 50 % 25 Gm/50 Ml Vial) 25 gm IVPUSH Q15M PRN; Protocol PRN Reason: per Hypoglycemia Standing Ord. Enoxaparin Sodium (Enoxaparin Sodium 40 Mg/0.4 Ml Syringe) 40 mg SUBCUT Q24H [facility] [place] Last Admin: 11/08/20 08:31 Dose: 40 mg Documented by: DONALD Folic Acid (Folic Acid 1 Mg Tablet) 1 mg PO DAILY [facility] [place] Last Admin: 11/08/20 08:32 Dose: 1 mg Documented by: DONALD Glucose (Glucose Gel 15 Gm Gel..Gram.) 15 gm PO Q15M PRN; Protocol PRN Reason: per Hypoglycemia Standing Ord. Hydromorphone HCl (Hydromorphone Hcl 1 Mg/Ml Syringe) 1 mg IVPUSH Q4H PRN; Protocol PRN Reason: pain Last Admin: 11/08/20 08:37 Dose: 1 mg Documented by: DONALD Lactated Ringer's (Lr) 1,000 mls @ 200 mls/hr IVCONT .Q5H [facility] [place] Last Admin: 11/08/20 08:34 Dose: 200 mls/hr Documented by: DONALD Insulin Human Lispro (Insulin Lispro 100 Unit/Ml 3 Ml Vial) 0 unit SUBCUT QIDACHS [facility] [place]; Protocol Last Admin: 11/08/20 08:33 Dose: 2 unit Documented by: DONALD Lisinopril (Lisinopril 10 Mg Tablet) 10 mg PO DAILY [facility] [place]; Protocol Last Admin: 11/08/20 08:32 Dose: 10 mg Documented by: DONALD Medication (No Benzodiazepines) 1 each MISCELLANE DAILY [facility] [place] Metoprolol Succinate (Metoprolol Succinate Er 50 Mg Tab.Er.24h) 50 mg PO DAILY [facility] [place]; Protocol Last Admin: 11/08/20 08:32 Dose: 50 mg Documented by: DONALD Morphine Sulfate (Morphine Sulfate 4 Mg/Ml Cartridge) 4 mg IVPUSH Q2H PRN; Protocol PRN Reason: pain Last Admin: 11/07/20 18:40 Dose: 4 mg Documented by: CLAUDIA Ondansetron HCl (Ondansetron Hcl 4 Mg/2 Ml Vial) 4 mg IVPUSH Q8H PRN PRN Reason: Nausea and Vomiting Last Admin: 11/05/20 22:18 Dose: 4 mg Documented by: SAMUEL Pharmacy Consult (Consult Rx Perform Med Rec) 1 each MISCELLANE ONCE PRN PRN Reason: Consult order Phenobarbital (Phenobarbital 30 Mg Tablet) 30 mg PO BID [facility]; Protocol Stop: 11/09/20 21:01 Last Admin: 11/08/20 08:32 Dose: 30 mg Documented by: DONALD Phenobarbital (Phenobarbital 15 Mg Tablet) 15 mg PO DAILY [facility]; Protocol Stop: 11/11/20 09:01 Polyethylene Glycol (Polyethylene Glycol 3350 17 Gm Powd.Pack) 17 gm PO DAILY [facility] [place] Last Admin: 11/08/20 08:34 Dose: Not Given Documented by: DONALD Non-Admin Reason: Patient Refused Quetiapine Fumarate (Quetiapine Fumarate 300 Mg Tablet) 300 mg PO BEDTIME [facility] [place] Last Admin: 11/07/20 20:20 Dose: 300 mg Documented by: JETHRO Sodium Chloride (0.9 % Sodium Chloride Flush 3 Ml Syringe) 3 ml IVFLUSH QSHIFT [facility] [place] Last Admin: 11/08/20 08:33 Dose: Not Given Documented by: DONALD Non-Admin Reason: IV Running Thiamine HCl (Thiamine Hcl 100 Mg Tablet) 100 mg PO DAILY [facility] [place] Last Admin: 11/08/20 08:32 Dose: 100 mg Documented by: DONALD Trazodone HCl (Trazodone Hcl 50 Mg Tablet) 150 mg PO BEDTIME [facility] [place] Last Admin: 11/07/20 20:20 Dose: 150 mg Documented by: JETHRO Labs CBC & Chem 7: 11/07/20 05:20 11/07/20 05:20 Labs: Laboratory Results - last 24 hr 11/07/20 11/07/20 11/07/20 11:30 15:33 20:01 POC Glucose 156 H 140 H 174 H 11/08/20 07:28 POC Glucose 163 H Assessment and Plan (1) Alcohol withdrawal: Status: Acute (2) Alcohol abuse: Status: Acute (3) Acute pancreatitis: Status: Acute Assessment and Plan: 50M presented with abdominal pain Acute alcoholic pancreatitis, improvement check lipase, increase to soft diet if tolerated diet can go home Alcohol withdrawal continue phenobarbital protocol Continue folic acid thiamin CARE consult HTN--controlled on Lisinopril and Metoprolol Diabetes Insulin sliding scale, monitor point of care, Jardiance at home possible dc to home today DVT PPX Lovenox Quality Stroke Does the patient have a stroke diagnosis?: No VTE Prior VTE?: No VTE Risk Level:: Medical - moderate - high VTE Device Contraindication: Treatment Not Indicated VTE Drug Contraindication: N/A - Med Ordered
[2020-11-08 11:17] LABS: Lipase 253 U/L (8-78)
[2020-11-08 11:29] LABS: Glucose, Whole Blood 151 mg/dL (60-115)
[2020-11-08 12:00] VITALS: BP 138/83; PULSE 73; RESP 17; TEMP 36.3; O2SAT 97
--- NOTE | 2020-11-08 14:26 | MHC.CM.PN ---
IMM 11/08/20, PT POSSIBLE D/C TODAY AFTER MEETING W/CARE TEAM, PT IS ANXIOUS FOR D/C HOWEVER STILL HAD IVF RUNNING WHEN CM MET W/PT, PT WILL ARRANGE HIS OWN TRANSPORT.
--- NOTE | 2020-11-08 15:15 | MHC.CARE ---
CARE Team met with Pt who declined resources and services.
== END 2020-11-08 15:29 | disposition home or self-care (01) | DRG 439 ==
LOC: HO.ED 10:42 → HO.S3 13:40
PROVIDERS: Student in an Organized Health Care Education/Training Program; Admitting Provider Internal Medicine; Emergency Provider Emergency Medicine Emergency Medical Services; PCP Internal Medicine; Visit Provider Internal Medicine
DX: K85.20 Alcohol induced acute pancreatitis without necrosis or infection (principal); F10.239 Alcohol dependence with withdrawal, unspecified; E11.9 Type 2 diabetes mellitus without complications; I10 Essential (primary) hypertension; Z20.822 Contact with and (suspected) exposure to COVID-19; Z79.899 Other long term (current) drug therapy
CPT/HCPCS: 36415; 74177; 80048; 80076; 81001; 82077; 82947; 83690; 83735; 85025; 85027; 87635; 96374; 96375; 99285; J1170; J1650; J2270; J2405; J2560; Q9967

== ENCOUNTER 2021-05-13 13:47 | Emergency (ER) | payer OTHER, MEDICAID, SELFPAY ==
[2021-05-13 15:39] VITALS: BP 131/82; PULSE 76; RESP 18; TEMP 36.7; O2SAT 99; BMI 28.1
--- NOTE | 2021-05-13 15:39 | ECG_ITS ---
Test Reason : epigastric pain Blood Pressure : / mmHG Vent. Rate : 073 BPM Atrial Rate : 073 BPM P-R Int : 180 ms QRS Dur : 088 ms QT Int : 396 ms P-R-T Axes : 038 -06 010 degrees QTc Int : 436 ms Sinus rhythm with occasional Premature ventricular complexes Otherwise normal ECG When compared with ECG of 16-NOV-2018 17:36, Premature ventricular complexes are now Present Nonspecific T wave abnormality, improved in Anterolateral leads QT has shortened Referred By: Yao Fuentes Electronically Signed By:PATRICIA MOTLEY
--- NOTE | 2021-05-13 15:40 | ED.GENADULT ---
HPI - General Adult General Chief complaint: Abdominal Pain <ANGEL Miles - Last Filed: 05/14/21 08:10> Stated complaint: pancreitis <ANGEL Miles - Last Filed: 05/14/21 08:10> Time Seen by Provider: 05/13/21 15:39 <ANGEL Miles - Last Filed: 05/14/21 08:10> Source: patient <ANGEL Alex Last Filed: 05/13/21 21:10> Mode of arrival: ambulatory <ANGEL Alex Last Filed: 05/13/21 21:10> Limitations: no limitations <ANGEL Alex Last Filed: 05/13/21 21:10> History of Present Illness HPI narrative: Patient is a 51 year old male presenting to the emergency department today with nausea and generalized abdominal pain. Patient states that he has a history of pancreatitis and believes he is having another flare of that. Patient states that he has been dieting and not drinking alcohol. Patient denies any dizziness, lightheadedness, vomiting, fever, chills, blurry vision, double vision, loss of vision, chest pain, difficulty breathing, shortness of breath, back pain, night sweats, pain with urination, increased urinary frequency, increased urinary urgency, blood in his urine or stool, syncope or a near syncopal episode, recent trauma or falls, bowel incontinence, bladder incontinence, bowel retention, bladder retention, or any other complaints at this time. <ANGEL Alex - Last Filed: 05/13/21 21:10> Onset (ago): hour(s) <ANGEL Alex - Last Filed: 05/13/21 21:10> Location: abdomen <ANGEL Alex Last Filed: 05/13/21 21:10> Radiation: non-radiation <ANGEL Alex Last Filed: 05/13/21 21:10> Severity: mild <ANGEL Alex Last Filed: 05/13/21 21:10> Severity scale (1-10): 3 <ANGEL Alex Last Filed: 05/13/21 21:10> Quality: dull <ANGEL Alex Last Filed: 05/13/21 21:10> Pain Consistency: intermittent <ANGEL Alex Last Filed: 05/13/21 21:10> Relieving factors: none <ANGEL Alex Last Filed: 05/13/21 21:10> Exacerbating factors: none <ANGEL Alex Last Filed: 05/13/21 21:10> Associated symptoms: nausea/vomiting <ANGEL Alex Last Filed: 05/13/21 21:10> Treatments prior to arrival: none <ANGEL Alex Last Filed: 05/13/21 21:10> Related Data Home medications: Home Medications Medication Instructions Recorded Confirmed metoprolol succinate 50 mg 50 mg PO DAILY 02/27/20 11/04/20 tablet,extended release 24 hr quetiapine 300 mg tablet 300 mg PO BEDTIME 02/27/20 11/04/20 trazodone 150 mg tablet 150 mg PO BEDTIME 02/27/20 11/04/20 empagliflozin 25 mg tablet 25 mg PO DAILY 05/22/20 11/04/20 (Jardiance) lisinopril 10 mg tablet 1 tab PO DAILY 11/04/20 11/04/20 Previous Rx's Medication Instructions Recorded folic acid 1 mg tablet 1 mg PO DAILY #30 tab 05/26/20 thiamine mononitrate (vit B1) 100 100 mg PO DAILY #30 tab 05/26/20 mg tablet <ANGEL Miles - Last Filed: 05/14/21 08:10> Allergies/adverse reactions: Allergies Allergy/AdvReac Type Severity Reaction Status Date / Time No Known Allergies Allergy Verified 11/04/20 16:32 [No Known Allergies*] <ANGEL Miles Last Filed: 05/14/21 08:10> Review of Systems Constitutional: Constitutional: Reports no additional constitutional complaints, Denies chills, Denies fever(s) and Denies night sweats <ANGEL Alex Last Filed: 05/13/21 21:10> Eyes: Eyes: Reports no additional eye complaints, Denies blurry vision, Denies change in vision, Denies diplopia, Denies eye discharge, Denies loss of vision and Denies eye pain <ANGEL Alex Last Filed: 05/13/21 21:10> ENT: Denies dizziness <ANGEL Alex Last Filed: 05/13/21 21:10> Cardiovascular: Cardiovascular: Reports no additional cardiovascular complaints, Denies chest pain, Denies lightheadedness, Denies Loss of Consciousness and Denies dyspnea <ANGEL Alex Last Filed: 05/13/21 21:10> Respiratory: Respiratory: Reports no additional respiratory complaints and Denies dyspnea <ANGEL Alex Last Filed: 05/13/21 21:10> Gastrointestinal: Gastrointestinal: Reports no additional gastrointestinal complaints, Reports abdominal pain, Denies melena, Denies hematochezia, Denies change in bowel habits, Denies change in stool character and Reports nausea <ANGEL Alex Last Filed: 05/13/21 21:10> Genitourinary: Genitourinary: Reports no additional male genitourinary complaints, Denies hematuria, Denies oliguria, Denies difficulty urinating, Denies dysuria, Denies urinary frequency, Denies urinary hesitancy, Denies urinary incontinence and Denies urinary urgency <ANGEL Alex Last Filed: 05/13/21 21:10> Musculoskeletal: Musculoskeletal: Reports no additional musculoskeletal complaints, Denies numbness and Denies tingling <ANGEL Alex Last Filed: 05/13/21 21:10> Neurologic: Denies dizziness, Denies loss of vision, Denies numbness and Denies tingling <ANGEL Alex Last Filed: 05/13/21 21:10> Psychiatric: Psychiatric: Reports no additional psychiatric complaints <ANGEL Alex Last Filed: 05/13/21 21:10> Endocrine: Endocrine: Reports no additional endocrine complaints <ANGEL Alex Last Filed: 05/13/21 21:10> Hematologic/Lymphatic: Hematologic/Lymphatic: Reports no additional hematologic/lymphatic complaints <ANGEL Alex Last Filed: 05/13/21 21:10> Allergic/Immunologic: Allergic/Immunologic: Reports no additional allergic/immunologic complaints <ANGEL Alex Last Filed: 05/13/21 21:10> PMFSH Past Medical History Attestation statement: The following information was validated with the patient. <ANGEL Alex - Last Filed: 05/13/21 21:10> Source: old records reviewed <ANGEL Alex - Last Filed: 05/13/21 21:10> Medical History: Medical History (Updated 05/14/21 @ 00:01 by Manolo Peralta) Alcohol abuse Alcohol withdrawal Arthritis Cocaine abuse Diabetes mellitus Duodenitis Hypertension Pancreatitis Pancreatitis Seizures <ANGEL Miles - Last Filed: 05/14/21 08:10> Surgical History: Surgical History H/O hernia repair <ANGEL Miles - Last Filed: 05/14/21 08:10> Family History Family History: Family History Other CAD (coronary artery disease) Diabetes mellitus <ANGEL Miles - Last Filed: 05/14/21 08:10> Social History Social History: Social History Household Members: None Housing: Apartment Do you presently have visiting nurse or other home services: No Alcohol intake: current Alcohol intake frequency: a few times a week Alcohol type: beer Patient Tobacco Use Status: Never used Tobacco Second Hand Smoke Exposure: No Substance Use Type: Prescription Drugs Advance Directives: No service: No Current occupational status: employed <ANGEL Miles - Last Filed: 05/14/21 08:10> Physical Exam ED Vital Signs: Vital Signs - 24 hr 05/13/21 15:39 05/13/21 19:12 05/13/21 21:18 Temperature 98.1 F 98.8 F Pulse Rate 76 93 Respiratory Rate 18 18 16 Blood Pressure 131/82 125/75 Pulse Oximetry 99 95 BMI result Body Mass Index 28.1 <ANGEL Miles - Last Filed: 05/14/21 08:10> Vital Signs - 24 hr 05/13/21 15:39 05/13/21 19:12 05/13/21 21:18 Temperature 98.1 F 98.8 F Pulse Rate 76 93 Respiratory Rate 18 18 16 Blood Pressure 131/82 125/75 Pulse Oximetry 99 95 BMI result Body Mass Index 28.1 <ANGEL Alex - Last Filed: 05/13/21 21:10> Const General: cooperative, no acute distress, alert and awake <Reena Nevarez PA - Last Filed: 05/13/21 21:10> Nutritional Appearance: well nourished <Reena Nevarez PA - Last Filed: 05/13/21 21:10> Orientation/consciousness: patient oriented x3 <Reena Nevarez PA - Last Filed: 05/13/21 21:10> Limitations: no limitations <Reena Nevarez PA - Last Filed: 05/13/21 21:10> HENMT Head: Yes normal to inspection and Yes atraumatic <Reena Nevarez PA - Last Filed: 05/13/21 21:10> Ears: hearing grossly normal bilaterally and external ears normal <Reena Nevarez PA - Last Filed: 05/13/21 21:10> General nose exam: Normal external nose present, no nasal discharge noted and no epistaxis <Reena Nevarez PA - Last Filed: 05/13/21 21:10> Face and sinus: Yes normal facial exam, No abrasion and No laceration <Reena Nevarez PA - Last Filed: 05/13/21 21:10> Mouth: Normal oral and palatal mucosa present, no drooling and no muffled voice <Reena Nevarez PA - Last Filed: 05/13/21 21:10> Eyes General: appearance normal, both eyes and all related structures <Reena Nevarez PA - Last Filed: 05/13/21 21:10> Periorbital: periorbital findings normal <Reena Nevarez PA - Last Filed: 05/13/21 21:10> Eyelids: Yes eyelids normal <Reena Nevarez PA - Last Filed: 05/13/21 21:10> Conjunctivae: conjunctivae normal <Reena Nevarez PA - Last Filed: 05/13/21 21:10> Pupils: Equal, round and reactive pupils present <Reena Nevarez PA - Last Filed: 05/13/21 21:10> EOM: EOMs intact bilaterally <Reena Nevarez PA - Last Filed: 05/13/21 21:10> Neck Neck: Yes normal visual inspection, Yes full ROM and Yes no lymphadenopathy <Reena Nevarez PA - Last Filed: 05/13/21 21:10> Chest Chest palpation & inspection: normal inspection of the chest <Reena Nevarez [place] - Last Filed: 05/13/21 21:10> Resp Effort & Inspection: normal respiratory effort and able to speak in complete sentences <Reena Nevarez [place] - Last Filed: 05/13/21 21:10> Auscultation: clear to auscultation bilaterally <Reena Nevarez [place] - Last Filed: 05/13/21 21:10> Cardio Rate: regular rate <Reena Nevarez [place] - Last Filed: 05/13/21 21:10> Rhythm: regular rhythm <Reena Nevarez [place] - Last Filed: 05/13/21 21:10> GI Inspection: Yes normal to inspection <Reena Nevarez [place] - Last Filed: 05/13/21 21:10> Palpation (GI): Soft to palpation, not firm, nontender, no guarding and not rigid <Reena Nevarez [place] - Last Filed: 05/13/21 21:10> Neuro General: patient oriented x3 and moves all extremities <Reena Nevarez [place] - Last Filed: 05/13/21 21:10> Cranial nerves: Yes Equal, round and reactive pupils present <Reena Nevarez [place] - Last Filed: 05/13/21 21:10> Cognition (Neuro): normal cognition <Reena Nevarez [place] - Last Filed: 05/13/21 21:10> Motor exam (neuro): 5/5 motor strength present throughout <Reena Nevarez [place] - Last Filed: 05/13/21 21:10> Sensory Exam: Normal double simultaneous stimulation for sensation <Reena Nevarez [place] - Last Filed: 05/13/21 21:10> Coordination: [id number] test normal <Reena Nevarez [place] - Last Filed: 05/13/21 21:10> Extrem General: Yes normal to inspection, Yes full ROM and Yes capillary refill normal <Reena Nevarez PA - Last Filed: 05/13/21 21:10> Psych Appearance: grossly normal <Reena Nevarez [place] - Last Filed: 05/13/21 21:10> Mental Status: mental status grossly normal <ANGEL Alex - Last Filed: 05/13/21 21:10> Affect: normal affect <ANGEL Alex - Last Filed: 05/13/21 21:10> Attitude: cooperative <ANGEL Alex - Last Filed: 05/13/21 21:10> Thought process: Normal thought process present <ANGEL Alex Last Filed: 05/13/21 21:10> Thought content: Normal thought content present <ANGEL Alex Last Filed: 05/13/21 21:10> Insight: Good insight present (Psych) <ANGEL Alex Last Filed: 05/13/21 21:10> Course Course Course Narrative: Rapid medical screening. Presents to the ED for epigastric pain with pmh of pancreatitis since wednesday. Patient will have ekg, TROPONIN, AND LABS ORDERED. <ANGEL Miles - Last Filed: 05/14/21 08:10> Medical Decision Making MDM Narrative Medical decision making narrative: Patient is a 51 year old male presenting to the emergency department today with abdominal pain and nausea. Patient's physical exam was unremarkable, including a normal abdominal examination. Patient's blood work was unremarkable. Patient's liver enzymes are elevated as well as his lipase which is chronic for the patient. Patient's EKG was unremarkable. I explained my physical exam findings as well as all test results to the patient. I answered all questions asked by the patient. Patient received IV fluids and morphine which he stated helped his symptoms significantly. I stressed the importance of the patient taking his medication as prescribed. I stressed the importance of the patient following up with his primary care provider. I stressed the importance of the patient returning to the emergency department immediately if his symptoms were to worsen or if he were to develop any dizziness, shortness of breath, difficulty breathing, chest pain, blurry vision, loss of vision, nausea, vomiting, abdominal pain, fever, chills, back pain, or any other complaints. Patient verbalized agreement and understanding with this treatment plan and discharge. <ANGEL Alex Last Filed: 05/13/21 21:10> Differential Diagnosis Differential Diagnosis: chronic pancreatitis, abdominal pain <ANGEL Alex Last Filed: 05/13/21 21:10> Medical Records Medical records reviewed: Yes I reviewed the patient's medical records. <ANGEL Alex - Last Filed: 05/13/21 21:10> Lab Data Lab results reviewed: Yes I reviewed the patient's lab results. <ANGEL Alex - Last Filed: 05/13/21 21:10> Result diagrams: : 05/13/21 16:13 05/13/21 16:13 <ANGEL Miles - Last Filed: 05/14/21 08:10> Labs: Lab Results 05/13/21 05/13/21 05/13/21 Range/Units 16:13 16:13 16:13 WBC 10.0 (4.8-10.8) X10*3/uL RBC 4.49 L (4.60-5.80) X10*6/uL Hgb 14.4 (14.0-18.0) g/dl Hct 42.0 (42.0-52.0) % MCV 93.5 (80.0-98.0) fL MCH 32.1 (27.0-33.0) pg MCHC 34.3 (31.0-36.0) g/dl RDW 12.0 (11.0-16.0) % Plt Count 243 (160-400) X10*3/uL MPV 9.2 L (9.4-12.4) fL Immature Gran % (Auto) 0.7 H (0.0-0.4) % Neut % (Auto) 67.0 (45-73) % Lymph % (Auto) 21.9 (20-40) % [place] % (Auto) 8.1 (2-11) % Eos % (Auto) 1.6 (0-4) % Baso % (Auto) 0.7 (0-2) % Lymph # (Auto) 2.2 (1.2-4.9) X10*3/uL [place] # (Auto) 0.8 (0.1-1.2) X10*3/uL Eos # (Auto) 0.2 (0.0-0.4) X10*3/uL Baso # (Auto) 0.1 (0.0-0.2) X10*3/uL Abs Immat Gran (auto) 0.07 H (0.00-0.03) X10*3/uL Absolute Neuts (auto) 6.7 (2.0-8.3) x10*3/uL Absolute Nucleated RBC 0.000 (0.0-0.012) X10*3/uL Nucleated RBC % (auto) 0.0 (0.0-0.2) /100WBC PT 11.0 (9.9-13.0) SEC INR 1.0 (0.9-1.1) APTT 31.7 (24.1-38.0) SEC Sodium 138 (135-145) mmol/L Potassium 4.4 (3.3-5.1) mmol/L Chloride 101 (96-108) mmol/L Carbon Dioxide 28 (22-29) mmol/L Anion Gap 13 (12-20) BUN 18 H (9-16) mg/dL Creatinine 0.92 (0.5-1.4) mg/dL Estim Creat Clear Calc 94.9 Estimated GFR > 60 Random Glucose 152 H (60-115) mg/dL Calcium 9.9 D (8.4-10.2) mg/dL Total Bilirubin 0.4 (0.0-1.0) mg/dL AST 41 H D (5-37) U/L ALT 51 H (0-40) U/L Alkaline Phosphatase 79 D (39-117) U/L Troponin I High Sens (<3.5-35.0) ng/L Total Protein 7.6 (6.5-8.0) g/dL Albumin 4.7 (3.5-5.0) g/dL Lipase 107 H (8-78) U/L 05/13/21 Range/Units 16:13 WBC (4.8-10.8) X10*3/uL RBC (4.60-5.80) X10*6/uL Hgb (14.0-18.0) g/dl Hct (42.0-52.0) % MCV (80.0-98.0) fL MCH (27.0-33.0) pg MCHC (31.0-36.0) g/dl RDW (11.0-16.0) % Plt Count (160-400) X10*3/uL MPV (9.4-12.4) fL Immature Gran % (Auto) (0.0-0.4) % Neut % (Auto) (45-73) % Lymph % (Auto) (20-40) % [place] % (Auto) (2-11) % Eos % (Auto) (0-4) % Baso % (Auto) (0-2) % Lymph # (Auto) (1.2-4.9) X10*3/uL [place] # (Auto) (0.1-1.2) X10*3/uL Eos # (Auto) (0.0-0.4) X10*3/uL Baso # (Auto) (0.0-0.2) X10*3/uL Abs Immat Gran (auto) (0.00-0.03) X10*3/uL Absolute Neuts (auto) (2.0-8.3) x10*3/uL Absolute Nucleated RBC (0.0-0.012) X10*3/uL Nucleated RBC % (auto) (0.0-0.2) /100WBC PT (9.9-13.0) SEC INR (0.9-1.1) APTT (24.1-38.0) SEC Sodium (135-145) mmol/L Potassium (3.3-5.1) mmol/L Chloride (96-108) mmol/L Carbon Dioxide (22-29) mmol/L Anion Gap (12-20) BUN (9-16) mg/dL Creatinine (0.5-1.4) mg/dL Estim Creat Clear Calc Estimated GFR Random Glucose (60-115) mg/dL Calcium (8.4-10.2) mg/dL Total Bilirubin (0.0-1.0) mg/dL AST (5-37) U/L ALT (0-40) U/L Alkaline Phosphatase (39-117) U/L Troponin I High Sens 3.7 (<3.5-35.0) ng/L Total Protein (6.5-8.0) g/dL Albumin (3.5-5.0) g/dL Lipase (8-78) U/L <ANGEL Miles - Last Filed: 05/14/21 08:10> Lab Results 05/13/21 05/13/21 05/13/21 Range/Units 16:13 16:13 16:13 WBC 10.0 (4.8-10.8) X10*3/uL RBC 4.49 L (4.60-5.80) X10*6/uL Hgb 14.4 (14.0-18.0) g/dl Hct 42.0 (42.0-52.0) % MCV 93.5 (80.0-98.0) fL MCH 32.1 (27.0-33.0) pg MCHC 34.3 (31.0-36.0) g/dl RDW 12.0 (11.0-16.0) % Plt Count 243 (160-400) X10*3/uL MPV 9.2 L (9.4-12.4) fL Immature Gran % (Auto) 0.7 H (0.0-0.4) % Neut % (Auto) 67.0 (45-73) % Lymph % (Auto) 21.9 (20-40) % [place] % (Auto) 8.1 (2-11) % Eos % (Auto) 1.6 (0-4) % Baso % (Auto) 0.7 (0-2) % Lymph # (Auto) 2.2 (1.2-4.9) X10*3/uL [place] # (Auto) 0.8 (0.1-1.2) X10*3/uL Eos # (Auto) 0.2 (0.0-0.4) X10*3/uL Baso # (Auto) 0.1 (0.0-0.2) X10*3/uL Abs Immat Gran (auto) 0.07 H (0.00-0.03) X10*3/uL Absolute Neuts (auto) 6.7 (2.0-8.3) x10*3/uL Absolute Nucleated RBC 0.000 (0.0-0.012) X10*3/uL Nucleated RBC % (auto) 0.0 (0.0-0.2) /100WBC PT 11.0 (9.9-13.0) SEC INR 1.0 (0.9-1.1) APTT 31.7 (24.1-38.0) SEC Sodium 138 (135-145) mmol/L Potassium 4.4 (3.3-5.1) mmol/L Chloride 101 (96-108) mmol/L Carbon Dioxide 28 (22-29) mmol/L Anion Gap 13 (12-20) BUN 18 H (9-16) mg/dL Creatinine 0.92 (0.5-1.4) mg/dL Estim Creat Clear Calc 94.9 Estimated GFR > 60 Random Glucose 152 H (60-115) mg/dL Calcium 9.9 D (8.4-10.2) mg/dL Total Bilirubin 0.4 (0.0-1.0) mg/dL AST 41 H D (5-37) U/L ALT 51 H (0-40) U/L Alkaline Phosphatase 79 D (39-117) U/L Troponin I High Sens (<3.5-35.0) ng/L Total Protein 7.6 (6.5-8.0) g/dL Albumin 4.7 (3.5-5.0) g/dL Lipase 107 H (8-78) U/L // Range/Units 16:13 WBC (4.8-10.8) X10*3/uL RBC (4.60-5.80) X10*6/uL Hgb (14.0-18.0) g/dl Hct (42.0-52.0) % MCV (80.0-98.0) fL MCH (27.0-33.0) pg MCHC (31.0-36.0) g/dl RDW (11.0-16.0) % Plt Count (160-400) X10*3/uL MPV (9.4-12.4) fL Immature Gran % (Auto) (0.0-0.4) % Neut % (Auto) (45-73) % Lymph % (Auto) (20-40) % [place] % (Auto) (2-11) % Eos % (Auto) (0-4) % Baso % (Auto) (0-2) % Lymph # (Auto) (1.2-4.9) X10*3/uL [place] # (Auto) (0.1-1.2) X10*3/uL Eos # (Auto) (0.0-0.4) X10*3/uL Baso # (Auto) (0.0-0.2) X10*3/uL Abs Immat Gran (auto) (0.00-0.03) X10*3/uL Absolute Neuts (auto) (2.0-8.3) x10*3/uL Absolute Nucleated RBC (0.0-0.012) X10*3/uL Nucleated RBC % (auto) (0.0-0.2) /100WBC PT (9.9-13.0) SEC INR (0.9-1.1) APTT (24.1-38.0) SEC Sodium (135-145) mmol/L Potassium (3.3-5.1) mmol/L Chloride (96-108) mmol/L Carbon Dioxide (22-29) mmol/L Anion Gap (12-20) BUN (9-16) mg/dL Creatinine (0.5-1.4) mg/dL Estim Creat Clear Calc Estimated GFR Random Glucose (60-115) mg/dL Calcium (8.4-10.2) mg/dL Total Bilirubin (0.0-1.0) mg/dL AST (5-37) U/L ALT (0-40) U/L Alkaline Phosphatase (39-117) U/L Troponin I High Sens 3.7 (<3.5-35.0) ng/L Total Protein (6.5-8.0) g/dL Albumin (3.5-5.0) g/dL Lipase (8-78) U/L <ANGEL Alex - Last Filed: 05/13/21 21:10> ECG Data Attestation: I personally reviewed and interpreted this ECG as follows: <ANGEL Alex - Last Filed: 05/13/21 21:10> Prior ECG tracings: available for review <ANGEL Alex - Last Filed: 05/13/21 21:10> Interpretation: Vent. Rate: 073 BPM ? ? Atrial Rate: 073 BPM P-R Int: 180 ms? QRS Dur: 088 ms QT Int: 396 ms ? ? ? P-R-T Axes: 038 -06 010 degrees QTc Int: 436 ms ? Sinus rhythm with occasional Premature ventricular complexes Otherwise normal ECG When compared with ECG of 16-NOV-2018 17:36, Premature ventricular complexes are now Present Nonspecific T wave abnormality, improved in Anterolateral leads QT has shortened <ANGEL Alex - Last Filed: 05/13/21 21:10> Discharge Plan Discharge Clinical Impression: Pancreatitis <ANGEL Miles - Last Filed: 05/14/21 08:10> Patient Disposition: Home, Self-Care <ANGEL Miles - Last Filed: 05/14/21 08:10> Instructions: Pancreatitis (ED) <ANGEL Miles - Last Filed: 05/14/21 08:10> Additional Instructions: Follow up with your primary care provider. Return to the emergency department immediately if your symptoms worsen or if you develop any dizziness, shortness of breath, difficulty breathing, chest pain, blurry vision, loss of vision, nausea, vomiting, abdominal pain, fever, chills, back pain, or any other complaints. <ANGEL Miles - Last Filed: 05/14/21 08:10> Prescriptions: No Action Jardiance 25 mg tablet 25 mg PO DAILY 0RF Rx Instructions: Per patient and Sal[place] ([place] for Dr Gilbert) This replaces trulicty. patient is not on metformin anymore either folic acid 1 mg Tablet 1 mg PO DAILY Qty: 30 0RF thiamine mononitrate (vit B1) 100 mg Tablet 100 mg PO DAILY Qty: 30 0RF quetiapine 300 mg tablet 300 mg PO BEDTIME 0RF metoprolol succinate 50 mg tablet extended release 24 hr 50 mg PO DAILY 0RF Rx Instructions: Per [place] for Dr. Gilbert, only taking metoprolol. Lisinopril no longer active trazodone 150 mg tablet 150 mg PO BEDTIME 0RF lisinopril 10 mg tablet 1 tab PO DAILY 0RF <ANGEL Miles - Last Filed: 05/14/21 08:10> Referrals: Ruma Gilbert MD [Primary Care Provider] - 2 days <ANGEL Miles - Last Filed: 05/14/21 08:10> Interventions: ED Discharge Assessment Last Done: 05/13/21 21:18 <ANGEL Miles Last Filed: 05/14/21 08:10> Discharge Date/Time: 05/13/21 21:21 <ANGEL Miles - Last Filed: 05/14/21 08:10> Print Language: Mongolian <ANGEL Miles - Last Filed: 05/14/21 08:10>
[2021-05-13 16:19] LABS: MANUAL DIFF FLAG NO
[2021-05-13 16:22] LABS: Basophils Absolute Auto 0.1 X10*3/uL (0.0-0.2); Basophils Percent Auto 0.7 % (0-2); Eosinophils Absolute Auto 0.2 X10*3/uL (0.0-0.4); Eosinophils Percent Auto 1.6 % (0-4); Hemoglobin 14.4 g/dl (14.0-18.0); Imm Gran Abs Auto 0.07 X10*3/uL (0.00-0.03); Imm Gran Pct Auto 0.7 % (0.0-0.4); Lymphocytes Absolute Auto 2.2 X10*3/uL (1.2-4.9); Lymphocytes Percent Auto 21.9 % (20-40); Mean Corpuscular HGB Conc 34.3 g/dl (31.0-36.0); Mean Corpuscular Hemoglobin 32.1 pg (27.0-33.0); Mean Corpuscular Volume 93.5 fL (80.0-98.0); Mean Platelet Volume 9.2 fL (9.4-12.4); Monocytes Absolute Auto 0.8 X10*3/uL (0.1-1.2); Monocytes Percent Auto 8.1 % (2-11); Neutrophils Absolute Auto 6.7 x10*3/uL (2.0-8.3); Platelet Count 243 X10*3/uL (160-400); Red Blood Count 4.49 X10*6/uL (4.60-5.80)
[2021-05-13 16:30] LABS: Partial Thromboplastin Time 31.7 SEC (24.1-38.0)
[2021-05-13 16:35] LABS: Alanine Aminotransferase 51 U/L (0-40); Albumin Level 4.7 g/dL (3.5-5.0); Alkaline Phosphatase 79 U/L (39-117); Anion Gap 13 (12-20); Aspartate Amino Transferase 41 U/L (5-37); Bilirubin Total 0.4 mg/dL (0.0-1.0); Blood Urea Nitrogen 18 mg/dL (9-16); Calcium 9.9 mg/dL (8.4-10.2); Carbon Dioxide 28 mmol/L (22-29); Chloride 101 mmol/L (96-108); Creatinine Clr Calc Pharmacy 94.9; Estimated Glomerular Filt Rate > 60; Glucose Random 152 mg/dL (60-115); Lipase 107 U/L (8-78); Potassium 4.4 mmol/L (3.3-5.1); Sodium 138 mmol/L (135-145); Total Protein 7.6 g/dL (6.5-8.0)
[2021-05-13 16:40] LABS: Troponin-I High Sensitivity 3.7 ng/L (<3.5-35.0)
[2021-05-13 19:12] VITALS: BP 125/75; PULSE 93; RESP 18; TEMP 37.1; O2SAT 95
[2021-05-13] MEDS: 0.9 % Sodium Chloride 1,000 ML 999 ML IVCONT (19:34)
[2021-05-13] MEDS: Morphine Sulfate 4 MG/ML CARTRIDGE IVPUSH (19:34)
[2021-05-13 21:18] VITALS: RESP 16
== END 2021-05-13 21:21 | disposition home or self-care (01) ==
PROVIDERS: Physician Assistant; Emergency Provider Internal Medicine; PCP Internal Medicine
DX: K85.90 Acute pancreatitis without necrosis or infection, unspecified (principal); R10.9 Unspecified abdominal pain; Z79.899 Other long term (current) drug therapy
CPT/HCPCS: 36415; 80053; 83690; 84484; 85025; 85610; 85730; 93005; 96361; 96374; 99284; 99285; J2270

== ENCOUNTER 2021-06-10 06:08 | Emergency (ER) | payer OTHER, SELFPAY ==
[2021-06-10 06:17] VITALS: BP 157/94; PULSE 92; RESP 16; TEMP 36.6; O2SAT 98; BMI 30.4
[2021-06-10 06:24] VITALS: BP 149/86; PULSE 97; RESP 18; TEMP 37.6; O2SAT 95
--- NOTE | 2021-06-10 06:29 | ED.ABDPAIN ---
HPI - Abdominal Pain General Chief Complaint: General Medical Stated Complaint: Abd pain/leg pain Time Seen by Provider: 06/10/21 06:28 Source: patient Mode of arrival: EMS Limitations: no limitations History of Present Illness MD elicited complaint: abdominal pain (body aches, lymph node R groin, bite on R arauz) Pertinent past history: other (pancreatitis) Onset (ago): day(s) (3) Pain Consistency: constant Location: other (abdomen and R leg) Severity: moderate Quality: aching and dull Radiation: none Migration to: no migration Exacerbating factors: movement Relieving factors: nothing Context: other (noted a lesion on R arauz that wont heal , has hx of pancreatitis notes he is still drinking beer) Associated symptoms: nausea, vomiting, chills and other (myalgias) Related Data Home Medications Medication Instructions Recorded Confirmed metoprolol succinate 50 mg 50 mg PO DAILY 02/27/20 11/04/20 tablet,extended release 24 hr quetiapine 300 mg tablet 300 mg PO BEDTIME 02/27/20 11/04/20 trazodone 150 mg tablet 150 mg PO BEDTIME 02/27/20 11/04/20 empagliflozin 25 mg tablet 25 mg PO DAILY 05/22/20 11/04/20 (Jardiance) lisinopril 10 mg tablet 1 tab PO DAILY 11/04/20 11/04/20 Previous Rx's Medication Instructions Recorded folic acid 1 mg tablet 1 mg PO DAILY #30 tab 05/26/20 thiamine mononitrate (vit B1) 100 100 mg PO DAILY #30 tab 05/26/20 mg tablet cephalexin 500 mg capsule 500 mg PO TID 7 Days #21 cap 06/10/21 doxycycline hyclate 100 mg capsule 100 mg PO BID 7 Days #14 cap 06/10/21 hydrocodone 5 mg-acetaminophen 325 1 tab PO Q6H PRN #8 tab 06/10/21 mg tablet ondansetron 4 mg disintegrating 4 mg PO Q8H PRN #20 tab 06/10/21 tablet Allergies Allergy/AdvReac Type Severity Reaction Status Date / Time No Known Allergies Allergy Verified 11/04/20 16:32 [No Known Allergies*] Review of Systems Review of Systems Constitutional : No Weight loss, No Fever, pos Chills ENT/Mouth : No sore throat, No Rhinorrhea Eyes: No Swelling, No Redness Cardiovascular : No Chest Pain, No SOB, NoEdema Respiratory : No Cough, No Sputum, No Wheezing Gastrointestinal : Positive Nausea, Positive Vomiting, no Diarrhea, positive abdominal Pain, No Hematochezia, No Melena Genitourinary : No Dysuria, No Urinary Frequency, No Hematuria, No Urgency Musculoskeletal : No joint pain, pos Myalgias, No Joint Swelling Skin : pos Skin Lesions, No rash Neuro : No Weakness, No Numbness, No Dizziness, No Headache Psych : No Anxiety/Panic, No Depression Heme/Lymph: No Bruising, pos Lymphadenopathy Endocrine : No Polyuria, No Polydipsia All other systems reviewed and are negative. [facility] Past Medical History Attestation statement: The following information was validated with the patient. Medical History Alcohol abuse Alcohol withdrawal Arthritis Cocaine abuse Diabetes mellitus Duodenitis Hypertension Pancreatitis Pancreatitis Seizures Surgical History H/O hernia repair Family History Family History Other CAD (coronary artery disease) Diabetes mellitus Social History Social History Household Members: None Housing: Apartment Do you presently have visiting nurse or other home services: No Alcohol intake: current Alcohol intake frequency: a few times a week Alcohol type: beer Patient Tobacco Use Status: Never used Tobacco Second Hand Smoke Exposure: No Substance Use Type: Prescription Drugs Advance Directives: No service: No Current occupational status: employed Physical Exam ED Vital Signs: Vital Signs - 24 hr 06/10/21 06:17 06/10/21 06:24 Temperature 97.9 F 99.7 F Pulse Rate 92 97 Respiratory Rate 16 18 Blood Pressure 157/94 H 149/86 H Pulse Oximetry 98 95 BMI result Body Mass Index 30.4 Appearance: Alert. Oriented X3. No acute distress. Eyes: Pupils equal, round and reactive to light. ENT: Pharynx normal. Neck: Normal inspection. Neck supple. CVS: Normal heart rate and rhythm. Pulses normal. Respiratory: No respiratory distress. Breath sounds normal. Abdomen: Soft and mild epigastric ttp no rebound or guarding Skin: Skin warm and dry. Normal skin color. Normal skin turgor. Extremities: No lower extremity edema. R groin small mobile 1.5cm node noted - noted normal scrotum normal. R anterior arauz scabbed area noted no significant swelling or erythema noted Neuro: Oriented X 3. No motor deficit. No sensory deficit. Course Course Course Narrative: feels better able to tolerate PO stable for DC at this time will start on cephalexin and doxy MDM - Abdominal Pain MDM Narrative Medical decision making narrative: 51 yo male with hx of pancreatitis, ETOH abuse, HTN, here with c/o 3 days of body aches, abdominal pain n/v has been drinking some beer despite his pancreatitis, R sided pain from cut on R leg which appears to be a bite no abscess felt no sig swelling no fluctuance no cellulitis noted - does have small node noted in R groin that is soft and mobile. Labs, covid/flu swab ordered. IVF, IV morphine for pain dispo per results and findings. Will need PO abx for the lesion on arauz. Lab Data Result diagrams: 06/10/21 06:40 06/10/21 06:40 Labs: Lab Results 06/10/21 06/10/21 06/10/21 Range/Units 06:40 06:40 06:40 WBC 5.4 (4.8-10.8) X10*3/uL RBC 4.32 L (4.60-5.80) X10*6/uL Hgb 13.8 L (14.0-18.0) g/dl Hct 39.6 L (42.0-52.0) % MCV 91.7 (80.0-98.0) fL MCH 31.9 (27.0-33.0) pg MCHC 34.8 (31.0-36.0) g/dl RDW 12.1 (11.0-16.0) % Plt Count 165 D (160-400) X10*3/uL MPV 9.1 L (9.4-12.4) fL Immature Gran % (Auto) 2.2 H (0.0-0.4) % Neut % (Auto) 60.6 (45-73) % Lymph % (Auto) 19.5 L (20-40) % [place] % (Auto) 16.4 H (2-11) % Eos % (Auto) 0.7 (0-4) % Baso % (Auto) 0.6 (0-2) % Lymph # (Auto) 1.1 L (1.2-4.9) X10*3/uL [place] # (Auto) 0.9 (0.1-1.2) X10*3/uL Eos # (Auto) 0.0 (0.0-0.4) X10*3/uL Baso # (Auto) 0.0 (0.0-0.2) X10*3/uL Abs Immat Gran (auto) 0.12 H (0.00-0.03) X10*3/uL Absolute Neuts (auto) 3.3 (2.0-8.3) x10*3/uL Absolute Nucleated RBC 0.000 (0.0-0.012) X10*3/uL Nucleated RBC % (auto) 0.0 (0.0-0.2) /100WBC Sodium 138 (135-145) mmol/L Potassium 4.0 (3.3-5.1) mmol/L Chloride 102 (96-108) mmol/L Carbon Dioxide 26 (22-29) mmol/L Anion Gap 14 (12-20) BUN 10 (9-16) mg/dL Creatinine 0.94 (0.5-1.4) mg/dL Estim Creat Clear Calc 99.4 Estimated GFR > 60 Random Glucose 190 H (60-115) mg/dL Calcium 9.6 (8.4-10.2) mg/dL Total Bilirubin 0.3 (0.0-1.0) mg/dL Direct Bilirubin < 0.2 (0.0-0.5) mg/dL AST 34 (5-37) U/L ALT 37 (0-40) U/L Alkaline Phosphatase 85 (39-117) U/L Total Protein 7.2 (6.5-8.0) g/dL Albumin 4.3 (3.5-5.0) g/dL Lipase 50 (8-78) U/L Urine Color Urine Appearance Urine pH (5.0-8.0) Ur Specific [place] (1.005-1.025) Urine Protein (NEG-TRACE) MG/DL Urine Glucose (UA) (NEG) MG/DL Urine Ketones (NEG) MG/DL Urine Blood (NEG) Urine Nitrite (NEG) Ur Leukocyte Esterase (NEG) Urine RBC (0) /HPF Urine WBC (0-4) /HPF Ur Squamous Epith Cells /LPF Urine Bacteria /LPF COVID-19 (BUD) Negative (Negative) COVID-19 Clin Com See Note Influenza Type A (JI) (Negative) Influenza Type B (JI) (Negative) Influenza A & B Note 06/10/21 06/10/21 Range/Units 06:40 06:40 WBC (4.8-10.8) X10*3/uL RBC (4.60-5.80) X10*6/uL Hgb (14.0-18.0) g/dl Hct (42.0-52.0) % MCV (80.0-98.0) fL MCH (27.0-33.0) pg MCHC (31.0-36.0) g/dl RDW (11.0-16.0) % Plt Count (160-400) X10*3/uL MPV (9.4-12.4) fL Immature Gran % (Auto) (0.0-0.4) % Neut % (Auto) (45-73) % Lymph % (Auto) (20-40) % [place] % (Auto) (2-11) % Eos % (Auto) (0-4) % Baso % (Auto) (0-2) % Lymph # (Auto) (1.2-4.9) X10*3/uL [place] # (Auto) (0.1-1.2) X10*3/uL Eos # (Auto) (0.0-0.4) X10*3/uL Baso # (Auto) (0.0-0.2) X10*3/uL Abs Immat Gran (auto) (0.00-0.03) X10*3/uL Absolute Neuts (auto) (2.0-8.3) x10*3/uL Absolute Nucleated RBC (0.0-0.012) X10*3/uL Nucleated RBC % (auto) (0.0-0.2) /100WBC Sodium (135-145) mmol/L Potassium (3.3-5.1) mmol/L Chloride (96-108) mmol/L Carbon Dioxide (22-29) mmol/L Anion Gap (12-20) BUN (9-16) mg/dL Creatinine (0.5-1.4) mg/dL Estim Creat Clear Calc Estimated GFR Random Glucose (60-115) mg/dL Calcium (8.4-10.2) mg/dL Total Bilirubin (0.0-1.0) mg/dL Direct Bilirubin (0.0-0.5) mg/dL AST (5-37) U/L ALT (0-40) U/L Alkaline Phosphatase (39-117) U/L Total Protein (6.5-8.0) g/dL Albumin (3.5-5.0) g/dL Lipase (8-78) U/L Urine Color YELLOW Urine Appearance CLEAR Urine pH 6.0 (5.0-8.0) Ur Specific [place] 1.015 (1.005-1.025) Urine Protein NEG (NEG-TRACE) MG/DL Urine Glucose (UA) >=1000 H (NEG) MG/DL Urine Ketones NEG (NEG) MG/DL Urine Blood TRACE (NEG) Urine Nitrite NEG (NEG) Ur Leukocyte Esterase NEG (NEG) Urine RBC 0-2 (0) /HPF Urine WBC 0-2 (0-4) /HPF Ur Squamous Epith Cells TRACE /LPF Urine Bacteria NONE /LPF COVID-19 (BUD) (Negative) COVID-19 Clin Com Influenza Type A (JI) Negative (Negative) Influenza Type B (JI) Negative (Negative) Influenza A & B Note See Note Discharge Plan Discharge Clinical Impression: Lymphadenopathy, Abrasion, Acute viral syndrome Patient Disposition: Home, Self-Care Instructions: Lymphadenopathy (ED), Abrasion (ED), Viral Syndrome (ED) Additional Instructions: return to ED for any worsening symptoms or concerns Prescriptions: New doxycycline hyclate 100 mg capsule 100 mg PO BID 7 Days Qty: 14 0RF hydrocodone-acetaminophen 5-325 mg tablet 1 tab PO Q6H PRN (Reason: pain) Qty: 8 0RF cephalexin 500 mg capsule 500 mg PO TID 7 Days Qty: 21 0RF ondansetron 4 mg tablet,disintegrating 4 mg PO Q8H PRN (Reason: nausea and vomiting) Qty: 20 0RF No Action Jardiance 25 mg tablet 25 mg PO DAILY 0RF Rx Instructions: Per patient and Salma (KLARISSA for Dr Gilbert) This replaces trulicty. patient is not on metformin anymore either folic acid 1 mg Tablet 1 mg PO DAILY Qty: 30 0RF thiamine mononitrate (vit B1) 100 mg Tablet 100 mg PO DAILY Qty: 30 0RF quetiapine 300 mg tablet 300 mg PO BEDTIME 0RF metoprolol succinate 50 mg tablet extended release 24 hr 50 mg PO DAILY 0RF Rx Instructions: Per [place] for Dr. Gilbert, only taking metoprolol. Lisinopril no longer active trazodone 150 mg tablet 150 mg PO BEDTIME 0RF lisinopril 10 mg tablet 1 tab PO DAILY 0RF Referrals: Physician,Unknown J [Primary Care Provider] - 2 days (PCP if not better in 2 days) Stand Alone Forms: Work/School Release
[2021-06-10 06:50] LABS: MANUAL DIFF FLAG NO
[2021-06-10 06:57] LABS: Appearance Urine CLEAR; Basophils Percent Auto 0.6 % (0-2); Color Urine YELLOW; Eosinophils Percent Auto 0.7 % (0-4); Glucose Urine UA >=1000 MG/DL (NEG); Hematocrit 39.6 % (42.0-52.0); Hemoglobin 13.8 g/dl (14.0-18.0); Imm Gran Abs Auto 0.12 X10*3/uL (0.00-0.03); Imm Gran Pct Auto 2.2 % (0.0-0.4); Leukocyte Esterase Urine NEG (NEG); Lymphocytes Absolute Auto 1.1 X10*3/uL (1.2-4.9); Lymphocytes Percent Auto 19.5 % (20-40); Mean Corpuscular HGB Conc 34.8 g/dl (31.0-36.0); Mean Corpuscular Hemoglobin 31.9 pg (27.0-33.0); Mean Corpuscular Volume 91.7 fL (80.0-98.0); Mean Platelet Volume 9.1 fL (9.4-12.4); Monocytes Absolute Auto 0.9 X10*3/uL (0.1-1.2); Monocytes Percent Auto 16.4 % (2-11); Neutrophils Absolute Auto 3.3 x10*3/uL (2.0-8.3); Neutrophils Percent Auto 60.6 % (45-73); Nitrite Urine NEG (NEG); Platelet Count 165 X10*3/uL (160-400); Red Blood Count 4.32 X10*6/uL (4.60-5.80); Red Cell Distribution Width 12.1 % (11.0-16.0); Specific Gravity - Urine 1.015 (1.005-1.025); UACC Culture Trigger NO; Urine Blood TRACE (NEG); Urine Ketones NEG (NEG); Urine Protein NEG (NEG-TRACE); White Blood Count 5.4 X10*3/uL (4.8-10.8)
[2021-06-10 07:06] LABS: IDNOW Serial# 16C4AD1C; Influenza A Negative (Negative); Influenza B2 Negative (Negative)
[2021-06-10] MEDS: Acetaminophen 325 MG TABLET 650 MG PO (07:06)
[2021-06-10 07:07] LABS: COVID-19 Test Negative (Negative)
[2021-06-10] MEDS: Morphine Sulfate 4 MG/ML CARTRIDGE 6 MG IVPUSH (07:07)
[2021-06-10] MEDS: ondansetron HCL 4 MG/2 ML VIAL IVPUSH (07:07)
[2021-06-10 07:08] LABS: RBC Urine 0-2 /HPF (0); Squamous Epithelial Cell Urine TRACE /LPF; WBC Urine 0-2 /HPF (0-4)
[2021-06-10] MEDS: 0.9 % Sodium Chloride 1,000 ML 999 ML IV (07:08)
[2021-06-10 07:14] LABS: Alanine Aminotransferase 37 U/L (0-40); Albumin Level 4.3 g/dL (3.5-5.0); Alkaline Phosphatase 85 U/L (39-117); Anion Gap 14 (12-20); Aspartate Amino Transferase 34 U/L (5-37); Bilirubin Direct < 0.2 mg/dL (0.0-0.5); Bilirubin Total 0.3 mg/dL (0.0-1.0); Blood Urea Nitrogen 10 mg/dL (9-16); Calcium 9.6 mg/dL (8.4-10.2); Carbon Dioxide 26 mmol/L (22-29); Chloride 102 mmol/L (96-108); Creatinine Clr Calc Pharmacy 99.4; Estimated Glomerular Filt Rate > 60; Glucose Random 190 mg/dL (60-115); Lipase 50 U/L (8-78); Sodium 138 mmol/L (135-145); Total Protein 7.2 g/dL (6.5-8.0)
[2021-06-10] MEDS: cephALEXin 500 MG CAPSULE PO (07:28)
[2021-06-10 08:26] VITALS: BP 136/86; PULSE 78; RESP 16; O2SAT 95
== END 2021-06-10 08:27 | disposition home or self-care (01) ==
PROVIDERS: Emergency Provider Emergency Medicine
DX: B34.9 Viral infection, unspecified (principal); R59.0 Localized enlarged lymph nodes; S80.811A Abrasion, right lower leg, initial encounter; E11.9 Type 2 diabetes mellitus without complications; I10 Essential (primary) hypertension; F10.10 Alcohol abuse, uncomplicated; X58.XXXA Exposure to other specified factors, initial encounter; Y93.9 Activity, unspecified; Y92.9 Unspecified place or not applicable; Y99.9 Unspecified external cause status; Z20.822 Contact with and (suspected) exposure to COVID-19
CPT/HCPCS: 80048; 80076; 81001; 81003; 83690; 85025; 87502; 87635; 96361; 96374; 96375; 99283; 99284; J2270; J2405

== ENCOUNTER 2021-06-23 05:07 | Inpatient (IN) | payer OTHER, SELFPAY ==
[2021-06-23] VITALS (11 sets, daily range): BP systolic 104–163; BP diastolic 55–87; PULSE 58–95; RESP 6–20; TEMP 35.6–36.9; O2SAT 93–100; BMI 31.3
--- NOTE | ~2021-06-23 | CT_ITS ---
EXAMINATION: CT ABDOMEN AND PELVIS WITHOUT CONTRAST CLINICAL INFORMATION: Abdominal pain. History of pancreatitis. COMPARISON: CT of the abdomen and pelvis done on 11/04/2020. TECHNIQUE: Multidetector volumetric imaging was performed from the superior aspect of the liver through the pubic symphysis. Sagittal and coronal reformatted images were obtained on the technologist's workstation. This CT examination was performed using dose optimization techniques as appropriate, variously including the following: *Automated exposure control *Adjustment of mA and/or kV according to patient size (this includes techniques or standardized protocols for targeted exams where dose is matched to indication/reason for exam; i.e. extremities or head) *Use of iterative reconstruction technique DLP: 729.3 mGy-cm FINDINGS: LUNG BASES: Calcific atherosclerotic coronary arterial disease is present. Both lung bases are clear. No evidence of any pleural or pericardial effusion. LIVER, GALLBLADDER, AND BILIARY TREE: The liver is normal in size, shape, and attenuation. No focal hepatic lesion or biliary ductal dilatation is present. The gallbladder is unremarkable with no evidence of radiopaque gallstones, gallbladder wall thickening, or obvious pericholecystic inflammatory changes. PANCREAS: Subtle peripancreatic inflammatory stranding is noted around the head and uncinate process, similar to prior study. Evaluation is technically limited on this nonenhanced study. The remainder of the pancreas appear unremarkable. No evidence of any peripancreatic fluid collection or pancreatic ductal dilatation or calcification. SPLEEN: Unremarkable. ADRENAL GLANDS: Unremarkable. KIDNEYS AND URETERS: The kidneys are normal in size, shape, and attenuation. No hydronephrosis, hydroureter, or calculi seen. No perinephric stranding. BLADDER: Unremarkable. GASTROINTESTINAL TRACT: The small and large bowel are unremarkable. The appendix is unremarkable. Appendix is located at the right upper quadrant of the abdomen overlying the inferolateral anterior aspect of the right lobe of the liver into position between the adjacent part of the abdominal wall and the liver and is also abutting the tip of the fundus of the gallbladder (315: 4). ABDOMINAL WALL: No significant hernia is appreciated. Postsurgical changes of prior ventral hernia repair is noted without any CT evidence of disease recurrence. LYMPH NODES: Normal. VASCULAR: Mild atherosclerotic disease of the aorta and is branches without aneurysm formation. PELVIC VISCERA: There is no pelvic mass present. No evidence of any free fluid and/or free air. Incidental note is made of vas deferens calcifications. OSSEOUS STRUCTURES: Postsurgical changes of total right hip arthroplasty is noted with intact hardware. Multilevel degenerative spondylosis. CT/CT abdomen pelvis wo con IMPRESSION: 1. Persistent stable subtle peripancreatic inflammatory stranding is noted around the head and uncinate process, appear similar to prior CT study dated 11/04/2020. Please note that the current study is slightly technically limited due to lack of intravenous contrast. 2. Calcific atherosclerotic coronary arterial disease and postsurgical changes of prior hernia repair within the anterior lower abdomen without any CT evidence of disease recurrence. 3. No new abnormalities. Fleischner guidelines were followed.
--- NOTE | ~2021-06-23 | XR_ITS ---
EXAMINATION: XR CHEST CLINICAL INFORMATION: Chest pain COMPARISON: 11/14/2018 TECHNIQUE: Frontal view of the chest was obtained. FINDINGS: Normal symmetric lung volumes. No parenchymal consolidation. No pleural effusion. No pneumothorax. Cardiomediastinal silhouette and pulmonary vascularity are within normal limits. No acute osseous abnormalities. Chronic right shoulder separation. Severe bilaterally acromioclavicular arthritis. XR/XR chest 1V IMPRESSION: No acute pulmonary pathology.
--- NOTE | 2021-06-23 05:53 | PC.NURSE ---
Attempted to obtain vascular access but patient is a difficult stick. This junior technical writer asked another RN to attempt access
[2021-06-23 06:02] LABS: Hematocrit 39.4 % (42.0-52.0); Hemoglobin 13.6 g/dl (14.0-18.0); Mean Corpuscular HGB Conc 34.5 g/dl (31.0-36.0); Mean Corpuscular Hemoglobin 31.6 pg (27.0-33.0); Mean Corpuscular Volume 91.6 fL (80.0-98.0); Mean Platelet Volume 8.6 fL (9.4-12.4); Platelet Count 235 X10*3/uL (160-400); Red Cell Distribution Width 11.9 % (11.0-16.0); White Blood Count 10.6 X10*3/uL (4.8-10.8)
[2021-06-23 06:20] LABS: Alanine Aminotransferase 50 U/L (0-40); Albumin Level 4.2 g/dL (3.5-5.0); Alkaline Phosphatase 89 U/L (39-117); Anion Gap 17 (12-20); Aspartate Amino Transferase 43 U/L (5-37); Bilirubin Total 0.8 mg/dL (0.0-1.0); Blood Urea Nitrogen 19 mg/dL (9-16); Calcium 9.8 mg/dL (8.4-10.2); Carbon Dioxide 25 mmol/L (22-29); Chloride 98 mmol/L (96-108); Creatinine Clr Calc Pharmacy 98.6; Estimated Glomerular Filt Rate > 60; Glucose Random 232 mg/dL (60-115); Lipase 393 U/L (8-78); Potassium 3.6 mmol/L (3.3-5.1); Sodium 136 mmol/L (135-145)
--- NOTE | 2021-06-23 06:42 | ED.ABDPAIN ---
HPI - Abdominal Pain General Chief Complaint: Abdominal Pain Stated Complaint: pancreatitis Time Seen by Provider: 06/23/21 06:40 Source: patient Mode of arrival: ambulatory Limitations: no limitations History of Present Illness HPI narrative: 50 years old male came in for evaluation of abdominal pain similar to his previous pancreatitis attacks. This is a 51 years old male with history of alcohol claim that he has been sober for a while now patient admitted to drinking few beers on a picnic 2 days ago, patient also had pork chops for dinner last night, woke up this morning with severe abdominal pain, no nausea, no vomiting, no fever, no rectal bleeding. Patient describes the pain as severe 10/10, more localized to the mid abdomen, pain is constant and described as dull aching pain, similar to his previous pancreatitis pain. Related Data Home Medications Medication Instructions Recorded Confirmed metoprolol succinate 50 mg 50 mg PO DAILY 02/27/20 11/04/20 tablet,extended release 24 hr quetiapine 300 mg tablet 300 mg PO BEDTIME 02/27/20 11/04/20 trazodone 150 mg tablet 150 mg PO BEDTIME 02/27/20 11/04/20 empagliflozin 25 mg tablet 25 mg PO DAILY 05/22/20 11/04/20 (Jardiance) lisinopril 10 mg tablet 1 tab PO DAILY 11/04/20 11/04/20 Previous Rx's Medication Instructions Recorded folic acid 1 mg tablet 1 mg PO DAILY #30 tab 05/26/20 thiamine mononitrate (vit B1) 100 100 mg PO DAILY #30 tab 05/26/20 mg tablet cephalexin 500 mg capsule 500 mg PO TID 7 Days #21 cap 06/10/21 doxycycline hyclate 100 mg capsule 100 mg PO BID 7 Days #14 cap 06/10/21 hydrocodone 5 mg-acetaminophen 325 1 tab PO Q6H PRN #8 tab 06/10/21 mg tablet ondansetron 4 mg disintegrating 4 mg PO Q8H PRN #20 tab 06/10/21 tablet Allergies Allergy/AdvReac Type Severity Reaction Status Date / Time No Known Allergies Allergy Verified 11/04/20 16:32 [No Known Allergies*] Review of Systems Review of Systems All other systems are reviewed and are negative Constitutional: Reports as per HPI and Reports no additional constitutional complaints Eyes: Reports as per HPI and Reports no additional eye complaints Reports system reviewed and no additional complaints, except as documented Cardiovascular: Reports as per HPI and Reports no additional cardiovascular complaints Respiratory: Reports as per HPI and Reports no additional respiratory complaints Gastrointestinal: Reports as per HPI and Reports no additional gastrointestinal complaints Genitourinary: Reports no additional female genitourinary complaints Musculoskeletal: Reports no additional musculoskeletal complaints Skin/Breast: Reports system reviewed and no additional complaints, except as docu Psychiatric: Reports no additional psychiatric complaints Endocrine: Reports no additional endocrine complaints Hematologic/Lymphatic: Reports no additional hematologic/lymphatic complaints Allergic/Immunologic: Reports no additional allergic/immunologic complaints Reports system reviewed and no additional complaints, except as documented and Reports Abnormal speech present [facility] Past Medical History Medical History Alcohol abuse Alcohol withdrawal Arthritis Cocaine abuse Diabetes mellitus Duodenitis Hypertension Pancreatitis Pancreatitis Seizures Surgical History H/O hernia repair Family History Family History Other CAD (coronary artery disease) Diabetes mellitus Social History Social History Household Members: None Housing: Apartment Do you presently have visiting nurse or other home services: No Alcohol intake: current Alcohol intake frequency: a few times a week Alcohol type: beer Patient Tobacco Use Status: Never used Tobacco Second Hand Smoke Exposure: No Substance Use Type: Prescription Drugs Advance Directives: No Advance Directives Information Provided: Yes service: No Current occupational status: employed Physical Exam ED Vital Signs: Vital Signs - 24 hr 06/23/21 05:14 06/23/21 05:39 06/23/21 07:04 Temperature 96.0 F L 97.8 F 98.5 F Pulse Rate 95 84 74 Respiratory Rate 20 16 6 L Blood Pressure 151/87 H 148/87 H 104/55 L Pulse Oximetry 95 96 98 06/23/21 09:14 06/23/21 10:41 06/23/21 10:43 Temperature 98.0 F Pulse Rate 58 68 68 Respiratory Rate 16 18 16 Blood Pressure 106/64 108/71 108/71 Pulse Oximetry 93 BMI result Body Mass Index 31.3 Vital signs have been reviewed as appeared to be correct. Blood pressure normal. Heart rate normal. Respiration rate normal. Temperature normal. Oxygen saturation normal. Appearance: Alert. Oriented X3. No acute distress. Head: Normal external exam. Normocephalic. Atraumatic. No [place] signs noted. No raccoon eyes noted Eyes: PERRLA. EOMI. Conjunctiva and sclera normal. Eyelids normal. ENT: TM's Normal. Pharynx normal. Uvula midline. Moist mucous membranes. No trismus noted. No drooling noted. No muffled voice noted. Neck: Normal inspection. Neck supple. FROM. No adenopathy. Thyroid Normal. No meningeal signs. No neck mass noted. CVS: Normal heart rate and rhythm. Heart sound normal. No murmurs noted. Pulses normal throughout. Respiratory: No respiratory distress. Painless inspiration. Breath sounds normal. No wheezes/rales/rhonchi noted. Chest nontender. No accessory muscle usage noted or decreased air movement noted. Abdomen: Soft and nontender. Bowel sounds normal in all 4 quadrants. No distention noted. No organomegaly noted. No visible injury noted. Back: No CVA tenderness. Full range of motion noted. Skin: Skin warm and dry. Normal skin color. Normal skin turgor. No rashes/lesions/lacerations noted. Extremities: No lower extremity edema. Extremities exhibit normal range of motion. Extremities nontender. Neuro: Oriented X 3. Cranial nerve exam: II-XII are grossly intact No motor deficit. No sensory deficit. Reflexes normal. Course Course Course Narrative: Assessment and plan. 51-year-old male history of alcoholic pancreatitis, came in with abdominal pain labs and CT are consistent with acute pancreatitis with no complication, patient require few doses of Dilaudid control the pain and IV fluids. Patient require admission for IV hydration and pain control. MDM - Abdominal Pain Medical Records Attestation: I reviewed the patient's medical records. Lab Data Attestation: I reviewed the patient's lab results. Result diagrams: 06/23/21 05:57 06/23/21 05:57 Labs: Lab Results 06/23/21 06/23/21 06/23/21 Range/Units 05:57 05:57 07:38 WBC 10.6 (4.8-10.8) X10*3/uL RBC 4.30 L (4.60-5.80) X10*6/uL Hgb 13.6 L (14.0-18.0) g/dl Hct 39.4 L (42.0-52.0) % MCV 91.6 (80.0-98.0) fL MCH 31.6 (27.0-33.0) pg MCHC 34.5 (31.0-36.0) g/dl RDW 11.9 (11.0-16.0) % Plt Count 235 D (160-400) X10*3/uL MPV 8.6 L (9.4-12.4) fL Absolute Nucleated RBC 0.000 (0.0-0.012) X10*3/uL Nucleated RBC % (auto) 0.0 (0.0-0.2) /100WBC Sodium 136 (135-145) mmol/L Potassium 3.6 (3.3-5.1) mmol/L Chloride 98 (96-108) mmol/L Carbon Dioxide 25 (22-29) mmol/L Anion Gap 17 (12-20) BUN 19 H D (9-16) mg/dL Creatinine 0.93 (0.5-1.4) mg/dL Estim Creat Clear Calc 98.6 Estimated GFR > 60 Random Glucose 232 H (60-115) mg/dL Calcium 9.8 (8.4-10.2) mg/dL Total Bilirubin 0.8 (0.0-1.0) mg/dL AST 43 H (5-37) U/L ALT 50 H (0-40) U/L Alkaline Phosphatase 89 (39-117) U/L Troponin I High Sens < 3.5 (<3.5-35.0) ng/L Total Protein 7.0 (6.5-8.0) g/dL Albumin 4.2 (3.5-5.0) g/dL Lipase 393 H (8-78) U/L Urine Color Urine Appearance Urine pH (5.0-8.0) Ur Specific [place] (1.005-1.025) Urine Protein (NEG-TRACE) MG/DL Urine Glucose (UA) (NEG) MG/DL Urine Ketones (NEG) MG/DL Urine Blood (NEG) Urine Nitrite (NEG) Ur Leukocyte Esterase (NEG) Urine RBC (0) /HPF Urine WBC (0-4) /HPF Ur Squamous Epith Cells /LPF Urine Bacteria /LPF COVID-19 (BUD) (Negative) COVID-19 Clin Com 06/23/21 06/23/21 Range/Units 07:38 09:26 WBC (4.8-10.8) X10*3/uL RBC (4.60-5.80) X10*6/uL Hgb (14.0-18.0) g/dl Hct (42.0-52.0) % MCV (80.0-98.0) fL MCH (27.0-33.0) pg MCHC (31.0-36.0) g/dl RDW (11.0-16.0) % Plt Count (160-400) X10*3/uL MPV (9.4-12.4) fL Absolute Nucleated RBC (0.0-0.012) X10*3/uL Nucleated RBC % (auto) (0.0-0.2) /100WBC Sodium (135-145) mmol/L Potassium (3.3-5.1) mmol/L Chloride (96-108) mmol/L Carbon Dioxide (22-29) mmol/L Anion Gap (12-20) BUN (9-16) mg/dL Creatinine (0.5-1.4) mg/dL Estim Creat Clear Calc Estimated GFR Random Glucose (60-115) mg/dL Calcium (8.4-10.2) mg/dL Total Bilirubin (0.0-1.0) mg/dL AST (5-37) U/L ALT (0-40) U/L Alkaline Phosphatase (39-117) U/L Troponin I High Sens (<3.5-35.0) ng/L Total Protein (6.5-8.0) g/dL Albumin (3.5-5.0) g/dL Lipase (8-78) U/L Urine Color YELLOW Urine Appearance CLEAR Urine pH 5.5 (5.0-8.0) Ur Specific [place] 1.020 (1.005-1.025) Urine Protein NEG (NEG-TRACE) MG/DL Urine Glucose (UA) >=1000 H (NEG) MG/DL Urine Ketones NEG (NEG) MG/DL Urine Blood NEG (NEG) Urine Nitrite NEG (NEG) Ur Leukocyte Esterase NEG (NEG) Urine RBC 0 (0) /HPF Urine WBC 0-2 (0-4) /HPF Ur Squamous Epith Cells 1+ /LPF Urine Bacteria NONE /LPF COVID-19 (BUD) Negative (Negative) COVID-19 Clin Com See Note Imaging Data CT scan - abdomen: Attestation: I personally reviewed and interpreted this imaging study as follows: Radiologist's impression: 1. Persistent stable subtle peripancreatic inflammatory stranding is noted around the head and uncinate process, appear similar to prior CT study dated 11/04/2020. Please note that the current study is slightly technically limited due to lack of intravenous contrast. 2. Calcific atherosclerotic coronary arterial disease and postsurgical changes of prior hernia repair within the anterior lower abdomen without any CT evidence of disease recurrence. 3. No new abnormalities. ? Fleischner guidelines were followed. Chest x-ray: Attestation: I personally reviewed and interpreted this imaging study as follows: Radiologist's impression: No acute pulmonary pathology. ECG Data Attestation: I personally reviewed and interpreted this ECG as follows: Interpretation: Normal sinus rhythm at 72 beats per minute, left axis deviation, normal intervals, no ST-T changes. Discharge Plan Discharge Clinical Impression: Pancreatitis, Abdominal pain Patient Disposition: Admitted As Inpatient Prescriptions: No Action Jardiance 25 mg tablet 25 mg PO DAILY 0RF Rx Instructions: Per patient and Salma (KLARISSA for Dr Gilbert) This replaces trulicty. patient is not on metformin anymore either folic acid 1 mg Tablet 1 mg PO DAILY Qty: 30 0RF thiamine mononitrate (vit B1) 100 mg Tablet 100 mg PO DAILY Qty: 30 0RF quetiapine 300 mg tablet 300 mg PO BEDTIME 0RF metoprolol succinate 50 mg tablet extended release 24 hr 50 mg PO DAILY 0RF Rx Instructions: Per KLARISSA for Dr. Gilbert, only taking metoprolol. Lisinopril no longer active trazodone 150 mg tablet 150 mg PO BEDTIME 0RF lisinopril 10 mg tablet 1 tab PO DAILY 0RF doxycycline hyclate 100 mg capsule 100 mg PO BID 7 Days Qty: 14 0RF hydrocodone-acetaminophen 5-325 mg tablet 1 tab PO Q6H PRN (Reason: pain) Qty: 8 0RF cephalexin 500 mg capsule 500 mg PO TID 7 Days Qty: 21 0RF ondansetron 4 mg tablet,disintegrating 4 mg PO Q8H PRN (Reason: nausea and vomiting) Qty: 20 0RF
--- NOTE | 2021-06-23 06:47 | ECG_ITS ---
Test Reason : abdominal pain Blood Pressure : / mmHG Vent. Rate : 072 BPM Atrial Rate : 072 BPM P-R Int : 184 ms QRS Dur : 092 ms QT Int : 436 ms P-R-T Axes : 050 -01 016 degrees QTc Int : 477 ms Normal sinus rhythm Normal ECG When compared with ECG of 13-MAY-2021 15:58, Premature ventricular complexes are no longer Present Referred By: Светлана Gonzalez Electronically Signed By:GHAZAL LANDA MD
[2021-06-23] MEDS: 0.9 % Sodium Chloride 1,000 ML 999 ML IV ×2 (06:53→11:29)
[2021-06-23] MEDS: HYDROmorphone HCl 1 MG/ML SYRINGE IVPUSH ×2 (06:54→11:27)
[2021-06-23] MEDS: Ketorolac Tromethamine 30 MG/ML VIAL IVPUSH (06:55)
[2021-06-23 08:00] LABS: COVID-19 Test Negative (Negative); IDNOW Serial# 16C4AD1C
[2021-06-23 08:05] LABS: Troponin-I High Sensitivity < 3.5 ng/L (<3.5-35.0)
[2021-06-23 09:36] LABS: Appearance Urine CLEAR; Color Urine YELLOW; Glucose Urine UA >=1000 MG/DL (NEG); Leukocyte Esterase Urine NEG (NEG); Nitrite Urine NEG (NEG); PH 5.5 (5.0-8.0); Urine Blood NEG (NEG); Urine Ketones NEG (NEG); Urine Protein NEG (NEG-TRACE)
[2021-06-23 09:43] LABS: RBC Urine 0 /HPF (0); Squamous Epithelial Cell Urine 1+ /LPF; WBC Urine 0-2 /HPF (0-4)
--- NOTE | 2021-06-23 12:43 | PM.IMHP ---
History of Present Illness Date of Service: 06/23/21 Attending physician on admission: Harley Hodgson Chief Complaint: abd pain /alcohol abuse 50M presented with abdominal pain. pain started this morning ,? Pain is epigastric and going around back, sharp, Pain is continuous, 10/10, worse with eating, associated with nausea, has not vomited .? Similar to previous pancreatitis pain.?has nausea/vomiting, Patient drinks alcohol.? He usually drinks beers, about 6 beers /weekly moslty on wednesday.? Last drink 2 days prior to presentation. denies withdrawal symptoms.??CT consistent with pancreatitis changes similar to before. her lipase in 350. Denies any new complaint of chest pain or shortness of breath or fever or chills . Denies any cough Denies any weakness or numbness. Review of Systems Review of Systems: As above Yes all other systems are reviewed and are negative [facility] Medical History Alcohol abuse Alcohol withdrawal Arthritis Cocaine abuse Diabetes mellitus Duodenitis Hypertension Pancreatitis Pancreatitis Seizures Family History Other CAD (coronary artery disease) Diabetes mellitus Pertinent family history: mother has dm father has -liver dis. Surgical History H/O hernia repair Social History Household Members: None Housing: Apartment Do you presently have visiting nurse or other home services: No Alcohol intake: current Alcohol intake frequency: a few times a week Alcohol type: beer Patient Tobacco Use Status: Never used Tobacco Second Hand Smoke Exposure: No Substance Use Type: Prescription Drugs Advance Directives: No Advance Directives Information Provided: Yes service: No Current occupational status: employed Meds Allergies Allergy/AdvReac Type Severity Reaction Status Date / Time No Known Allergies Allergy Verified 11/04/20 16:32 [No Known Allergies*] Active Medications: Current Medications Dextrose (Dextrose 50 % 25 Gm/50 Ml Syringe) 25 gm IVPUSH Q15M PRN; Protocol PRN Reason: per Hypoglycemia Standing Ord. Enoxaparin Sodium (Enoxaparin Sodium 40 Mg/0.4 Ml Syringe) 40 mg SUBCUT Q24H [facility] Glucose (Glucose Gel 15 Gm Gel..Gram.) 15 gm PO Q15M PRN; Protocol PRN Reason: per Hypoglycemia Standing Ord. Lactated Ringer's (Lr) 1,000 mls @ 100 mls/hr IVCONT .Q10H [facility] Insulin Human Lispro (Insulin Lispro 100 Unit/Ml 3 Ml Vial) 0 unit SUBCUT QIDACHS [facility]; Protocol Morphine Sulfate (Morphine Sulfate 4 Mg/Ml Cartridge) 3 mg IVPUSH Q4H PRN; Protocol PRN Reason: Pain, Mild (Pain Scale 1-3) Ondansetron HCl (Ondansetron Hcl 4 Mg/2 Ml Vial) 4 mg IVPUSH Q4H PRN PRN Reason: Nausea Pharmacy Consult (Consult Rx Perform Med Rec) 1 each MISCELLANE ONCE PRN PRN Reason: Consult order Sodium Chloride (0.9 % Sodium Chloride Flush 3 Ml Syringe) 3 ml IVFLUSH QSHIFT [facility] Home Medications Medication Instructions Recorded Confirmed Last Taken Type metoprolol succinate 50 mg 50 mg PO DAILY 02/27/20 11/04/20 05/20/20 History tablet,extended release 24 hr quetiapine 300 mg tablet 300 mg PO BEDTIME 02/27/20 11/04/20 05/21/20 History trazodone 150 mg tablet 150 mg PO BEDTIME 02/27/20 11/04/20 05/21/20 History empagliflozin 25 mg tablet 25 mg PO DAILY 05/22/20 11/04/20 05/20/20 History (Jardiance) lisinopril 10 mg tablet 1 tab PO DAILY 11/04/20 11/04/20 Unknown History Physical Exam Vital Signs and Narrative: Vital Signs: Last Vital Signs Temp 97.7 F 06/23/21 12:13 Pulse 58 06/23/21 12:13 Resp 14 06/23/21 12:13 BP 105/70 06/23/21 12:13 Pulse Ox 94 06/23/21 12:13 BMI result Body Mass Index 31.3 Appearance: Alert.? Oriented X3.? seems in pain.anxious Eyes: Pupils equal, round and reactive to light.? Sclera nonicteric.? ENT: Pharynx normal.? Moist mucous membranes. cvs: rrr, [id number] . res: clear to auscultation ,no rhonchii or wheezing abd: no rebound or guarding ,epigastric pain radiates to back, bs present. ext pulses present , no cyanosis , tremers. neuro: axo3 , nonfocal. Results Labs CBC and Chem 7: 06/23/21 05:57 06/23/21 05:57 Labs: Laboratory Results - last 24 hr 06/23/21 06/23/21 06/23/21 05:57 05:57 07:38 MCV 91.6 MCH 31.6 MCHC 34.5 RDW 11.9 Plt Count 235 D MPV 8.6 L Absolute Nucleated RBC 0.000 Nucleated RBC % (auto) 0.0 Anion Gap 17 Estim Creat Clear Calc 98.6 Estimated GFR > 60 Random Glucose 232 H Calcium 9.8 Total Bilirubin 0.8 AST 43 H ALT 50 H Alkaline Phosphatase 89 Troponin I High Sens < 3.5 Total Protein 7.0 Albumin 4.2 Lipase 393 H Urine Color Urine Appearance Urine pH Ur Specific [place] Urine Protein Urine Glucose (UA) Urine Ketones Urine Blood Urine Nitrite Ur Leukocyte Esterase Urine RBC Urine WBC Ur Squamous Epith Cells Urine Bacteria COVID-19 (BUD) COVID-19 Clin Com 06/23/21 06/23/21 07:38 09:26 MCV MCH MCHC RDW Plt Count MPV Absolute Nucleated RBC Nucleated RBC % (auto) Anion Gap Estim Creat Clear Calc Estimated GFR Random Glucose Calcium Total Bilirubin AST ALT Alkaline Phosphatase Troponin I High Sens Total Protein Albumin Lipase Urine Color YELLOW Urine Appearance CLEAR Urine pH 5.5 Ur Specific [place] 1.020 Urine Protein NEG Urine Glucose (UA) >=1000 H Urine Ketones NEG Urine Blood NEG Urine Nitrite NEG Ur Leukocyte Esterase NEG Urine RBC 0 Urine WBC 0-2 Ur Squamous Epith Cells 1+ Urine Bacteria NONE COVID-19 (BUD) Negative COVID-19 Clin Com See Note Imaging Radiologist's Impressions: Impressions Chest X-Ray 06/23/21 07:50 IMPRESSION: No acute pulmonary pathology. Abdomen/Pelvis CT 06/23/21 09:12 IMPRESSION: 1. Persistent stable subtle peripancreatic inflammatory stranding is noted around the head and uncinate process, appear similar to prior CT study dated 11/04/2020. Please note that the current study is slightly technically limited due to lack of intravenous contrast. 2. Calcific atherosclerotic coronary arterial disease and postsurgical changes of prior hernia repair within the anterior lower abdomen without any CT evidence of disease recurrence. 3. No new abnormalities. Fleischner guidelines were followed. Assessment and Plan (1) Pancreatitis: Status: Acute (2) Abdominal pain: Status: Acute Plan 50M presented with abdominal pain Acute alcoholic pancreatitis continue IV fluids,pain iv morphine ,as needed Zofran for nausea bowel rest Alcohol abuse /possible mild withdrawal ciwa Continue folic acid thiamine Monitor for response hypertension Better controlled continue home p.o. meds ?Diabetes Insulin sliding scale, monitor point of care. Morbid obesity: Encouraged to cut down calories, weight loss. DVT PPX Lovenox Medical reconciliation still pending. Above management discussed the patient detail length he understand and in agreement with above plan, time spent 70 minute, considering acute abdominal pain and pancreatitis patient may need supportive care until pancreatitis improves, may benefit from to midnight stays. Quality Stroke Does the patient have a stroke diagnosis?: No VTE Prior VTE?: No VTE Risk Level:: Medical - moderate - high VTE Device Contraindication: N/A - Device Ordered VTE Drug Contraindication: N/A - Med Ordered
[2021-06-23] MEDS: Lactated Ringers 1,000 ML 100 ML IVCONT ×2 (12:58→16:43)
[2021-06-23] MEDS: Enoxaparin Sodium 40 MG/0.4 ML SYRINGE SUBCUT (13:01)
--- NOTE | 2021-06-23 14:35 | PHA.MEDREC ---
Pharmacy Consult ? Medication Reconciliation Pharmacy has completed the medication reconciliation. Patient not a great historian. Reports taking ABX still that were picked up 06/10/21 for a 7 day supply since it has been 13 days, I will not keep on medication list. All other medications were recently filled. Valentine Tanner, PharmD
[2021-06-23] MEDS: Morphine Sulfate 4 MG/ML CARTRIDGE 3 MG IVPUSH (14:49)
[2021-06-23] MEDS: PHENobarbitaL 100 MG, PHENobarbitaL 60 MG 160 MG PO (14:49)
[2021-06-23] MEDS: 0.9 % Sodium Chloride Flush 3 ML SYRINGE IVFLUSH (16:42)
[2021-06-23 17:14] LABS: Glucose, Whole Blood 157 mg/dL (60-115)
[2021-06-23] MEDS: HYDROmorphone HCl 1 MG/ML SYRINGE 0.5 MG IVPUSH ×3 (18:27→22:51)
[2021-06-23 20:38] LABS: Glucose, Whole Blood 141 mg/dL (60-115)
--- NOTE | 2021-06-23 22:56 | PC.NURSE ---
pt medicated with dilaudid 0.5mg iv at 2141 for c/o 10/10 abd and back pain with no relief.Pt states he had morphine in the er and it worked better for his pain. notified and said to give dilaudid dose early.pt medicated with dilaudid 0.5mg iv at 2251 for 10/10 pain.
[2021-06-24] VITALS (7 sets, daily range): BP systolic 116–191; BP diastolic 72–99; PULSE 69–78; RESP 14–18; TEMP 36.1–36.4; O2SAT 95–98
[2021-06-24] MEDS: HYDROmorphone HCl 1 MG/ML SYRINGE 0.5 MG IVPUSH ×3 (01:48→08:22)
[2021-06-24] MEDS: Lactated Ringers 1,000 ML 100 ML IVCONT ×3 (01:50→21:50)
[2021-06-24] MEDS: ondansetron HCL 4 MG/2 ML VIAL IVPUSH (04:55)
[2021-06-24 06:57] LABS: Hemoglobin 13.5 g/dl (14.0-18.0); Mean Corpuscular HGB Conc 33.8 g/dl (31.0-36.0); Mean Corpuscular Hemoglobin 31.9 pg (27.0-33.0); Mean Corpuscular Volume 94.6 fL (80.0-98.0); Mean Platelet Volume 9.3 fL (9.4-12.4); Platelet Count 224 X10*3/uL (160-400); Red Blood Count 4.23 X10*6/uL (4.60-5.80); Red Cell Distribution Width 11.9 % (11.0-16.0); White Blood Count 8.4 X10*3/uL (4.8-10.8)
[2021-06-24 07:19] LABS: Anion Gap 14 (12-20); Blood Urea Nitrogen 8 mg/dL (9-16); Calcium 9.2 mg/dL (8.4-10.2); Carbon Dioxide 26 mmol/L (22-29); Chloride 98 mmol/L (96-108); Creatinine Clr Calc Pharmacy 132.9; Estimated Glomerular Filt Rate > 60; Glucose Random 125 mg/dL (60-115); Potassium 4.1 mmol/L (3.3-5.1); Sodium 134 mmol/L (135-145)
[2021-06-24 07:46] LABS: Glucose, Whole Blood 113 mg/dL (60-115)
[2021-06-24] MEDS: PHENobarbitaL 15 MG TABLET 45 MG PO ×2 (08:23→20:39)
--- NOTE | 2021-06-24 08:40 | MHC.CM.PN ---
CM met with Patient at bedside and addressed IMM with him, providing him with the original and placing a copy on the chart. 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 Home/no services vs Care Tram Interventions r/t ETOH & Cocaineis the goal; CM has initiated and will follow for dc planning. PCP is Dr.Lanie Robin and Patient has received Moderna/Covid vax X3.
--- NOTE | 2021-06-24 09:43 | P.PNIM_ITS ---
Subjective Subjective Date of Service: 06/24/21 Interval History: follow-up on acute pancreatitis interval history: He has significant nausea, and severe epigastric pain. Review of Systems Nausea, abdominal pain, no fever. Physical Exam Vital Signs: Vital Signs: Last Vital Signs Temp 96.9 F 06/24/21 07:33 Pulse 78 06/24/21 07:33 Resp 18 06/24/21 07:33 BP 179/96 H 06/24/21 07:33 Pulse Ox 98 06/24/21 07:33 BMI result Body Mass Index 31.3 Const: Other: General: AO X 3, no acute distress Resp: CTA bilateral CVS: S1,S2,RRR GI: +BS, Epigastric tenderness, no distention Skin: No rash Neuro: motor grossly intact Psych: appropriate affect Objective Data Active Medications Dextrose (Dextrose 50 % 25 Gm/50 Ml Syringe) 25 gm IVPUSH Q15M PRN; Protocol PRN Reason: per Hypoglycemia Standing Ord. Enoxaparin Sodium (Enoxaparin Sodium 40 Mg/0.4 Ml Syringe) 40 mg SUBCUT Q24H [facility] Last Admin: 06/23/21 13:01 Dose: 40 mg Documented by: BELKYS Glucose (Glucose Gel 15 Gm Gel..Gram.) 15 gm PO Q15M PRN; Protocol PRN Reason: per Hypoglycemia Standing Ord. Hydromorphone HCl (Hydromorphone Hcl 1 Mg/Ml Syringe) 0.5 mg IVPUSH Q3H PRN; Protocol PRN Reason: Pain, Mild (Pain Scale 1-3) Last Admin: 06/24/21 08:22 Dose: 0.5 mg Documented by: FAN Lactated Ringer's (Lr) 1,000 mls @ 100 mls/hr IVCONT .Q10H [facility] Last Admin: 06/24/21 01:50 Dose: 100 mls/hr Documented by: ODRISRosalinda Insulin Human Lispro (Insulin Lispro 100 Unit/Ml 3 Ml Vial) 0 unit SUBCUT QIDACHS [facility]; Protocol Last Admin: 06/24/21 07:43 Dose: Not Given Documented by: FAN Non-Admin Reason: No Insulin Coverage Ondansetron HCl (Ondansetron Hcl 4 Mg/2 Ml Vial) 4 mg IVPUSH Q4H PRN PRN Reason: Nausea Last Admin: 06/24/21 04:55 Dose: 4 mg Documented by: SHARON Pharmacy Consult (Consult Rx Perform Med Rec) 1 each MISCELLANE ONCE PRN PRN Reason: Consult order Pharmacy Consult (Consult Rx Etoh Phenob Po Dose) 1 each MISCELLANE ONCE PRN; Protocol PRN Reason: Consult order Phenobarbital (Phenobarbital 15 Mg Tablet) 45 mg PO BID [facility]; Protocol Stop: 06/25/21 21:01 Last Admin: 06/24/21 08:23 Dose: 45 mg Documented by: FAN Phenobarbital (Phenobarbital 15 Mg Tablet) 15 mg PO BID [facility]; Protocol Stop: 06/27/21 21:01 Phenobarbital (Phenobarbital 15 Mg Tablet) 15 mg PO DAILY [facility]; Protocol Stop: 06/29/21 09:01 Sodium Chloride (0.9 % Sodium Chloride Flush 3 Ml Syringe) 3 ml IVFLUSH QSHIFT [facility] Last Admin: 06/24/21 07:21 Dose: Not Given Documented by: FAN Non-Admin Reason: IV Running Labs CBC & Chem 7: 06/24/21 06:15 06/24/21 06:15 Labs: Laboratory Results - last 24 hr 06/23/21 06/23/21 06/23/21 09:26 17:02 19:22 MCV MCH MCHC RDW Plt Count MPV Absolute Nucleated RBC Nucleated RBC % (auto) Anion Gap Estim Creat Clear Calc Estimated GFR POC Glucose 157 H 141 H Random Glucose Calcium Urine RBC 0 Urine WBC 0-2 Ur Squamous Epith Cells 1+ Urine Bacteria NONE 06/24/21 06/24/21 06/24/21 06:15 06:15 07:31 MCV 94.6 MCH 31.9 MCHC 33.8 RDW 11.9 Plt Count 224 MPV 9.3 L Absolute Nucleated RBC 0.000 Nucleated RBC % (auto) 0.0 Anion Gap 14 Estim Creat Clear Calc 132.9 Estimated GFR > 60 POC Glucose 113 Random Glucose 125 H D Calcium 9.2 D Urine RBC Urine WBC Ur Squamous Epith Cells Urine Bacteria Assessment and Plan (1) Alcohol withdrawal: Status: Resolved (2) Alcohol abuse: (3) Acute pancreatitis: Status: Resolved Plan 50M presented with abdominal pain and found to have acute pancreatitis presume alcohol related. #Acute alcoholic pancreatitis, persistent abdominal pain Check Lipse , continue NPO for now Dilaudid for pain #Alcohol withdrawal, no obvious signs of withdrawa -Continue Phenobarbital, Folic Acid, thiamine - alcohol cessation and health risks discussed - care team to advise prior to discharge HTN--uncontrolled, restart home meds Lisinopril and Metoprolol Diabetes Insulin sliding scale, monitor point of care, Jardiance on hold Need for inpatient: Acute pancreatitis with persistent unable to eat this time and requiring pain control with IV narcotics and IVF for hydration DVT PPX Lovenox Quality Stroke Does the patient have a stroke diagnosis?: No VTE Prior VTE?: No VTE Risk Level:: Medical - moderate - high VTE Device Contraindication: N/A - Device Ordered VTE Drug Contraindication: N/A - Med Ordered
[2021-06-24] MEDS: Metoprolol Succinate ER 50 MG TAB.ER.24H PO (10:05)
[2021-06-24] MEDS: Sertraline HCL 100 MG TABLET PO (10:05)
[2021-06-24] MEDS: lisinopriL 10 MG TABLET PO (10:05)
[2021-06-24 10:06] LABS: Lipase 140 U/L (8-78)
[2021-06-24 11:13] LABS: Glucose, Whole Blood 111 mg/dL (60-115)
[2021-06-24] MEDS: Enoxaparin Sodium 40 MG/0.4 ML SYRINGE SUBCUT (12:28)
[2021-06-24] MEDS: HYDROmorphone HCl 1 MG/ML SYRINGE IVPUSH ×3 (12:28→21:14)
[2021-06-24 16:09] LABS: Glucose, Whole Blood 116 mg/dL (60-115)
[2021-06-24 20:09] LABS: Glucose, Whole Blood 97 mg/dL (60-115)
[2021-06-24] MEDS: PHENobarbitaL 15 MG TABLET PO (20:27)
[2021-06-25] MEDS: HYDROmorphone HCl 1 MG/ML SYRINGE IVPUSH ×2 (01:15→05:36)
[2021-06-25 03:50] VITALS: BP 124/70; PULSE 66; RESP 16; TEMP 36.2; O2SAT 97
[2021-06-25] MEDS: PHENobarbitaL 15 MG TABLET 45 MG PO (07:43)
[2021-06-25] MEDS: Thiamine HCL 100 MG TABLET PO (07:43)
[2021-06-25] MEDS: Metoprolol Succinate ER 50 MG TAB.ER.24H PO (07:44)
[2021-06-25] MEDS: Sertraline HCL 100 MG TABLET PO (07:44)
[2021-06-25] MEDS: lisinopriL 10 MG TABLET PO (07:44)
[2021-06-25] MEDS: Folic Acid 1 MG TABLET PO (07:44)
[2021-06-25] MEDS: Empagliflozin 25 MG TABLET PO (07:44)
[2021-06-25 07:47] VITALS: BP 127/77; PULSE 63; RESP 17; TEMP 36.1; O2SAT 98
[2021-06-25 07:47] LABS: Glucose, Whole Blood 104 mg/dL (60-115)
[2021-06-25] MEDS: Lactated Ringers 1,000 ML 100 ML IVCONT (07:48)
--- NOTE | 2021-06-25 10:02 | P.DS_ITS ---
DS: Providers Provider Date of Service: 06/25/21 Date of admission: 06/23/21 12:33 Primary care physician: Unknown Physician DS: Diagnosis Discharge Diagnosis (1) Alcohol withdrawal: Status: Resolved (2) Alcohol abuse: (3) Acute pancreatitis: Status: Resolved DS: Summary Hospital Course Hospital Course: Chief Complaint: abd pain /alcohol abuse 50M presented with abdominal pain. pain started this morning , Pain is epigast abby and going around back, sharp, Pain is continuous, 10/10, worse with eating, associated with nausea, has not vomited . Similar to previous pancreatitis pain. has nausea/vomiting, Patient drinks alcohol. He usually drinks beers, about 6 beers /weekly moslty on wednesday. Last drink 2 days prior to presentation. denies withdrawal symptoms. CT consistent with pancreatitis changes similar to before. his lipase in 350. Denies any new complaint of chest pain or shortness of breath or fever or chills Denies any cough Denies any weakness or numbness. Hospital course: he was managed conservatively with hydration, IV pain medications initially made NPO until inflammation improved and lipase level as significantly came down and then his diet was advanced now to regular diet which he is tolerating and wants to go home as he is reporting that his father just overnight he had been and was expected to , he is grieving but no thought of harming himself. he is advised to avoid alcohol due to its potential have complications. Time Spent with Patient Time attestation: Total time spent providing and/or coordinating discharge services: Discharge coordination time: Greater than 30 minutes Quality: Safe Use of Opioids Does Pt have an Active Cancer Diagnosis on the Problem List?: No Quality: Stroke Does the patient have a stroke diagnosis?: No Physical Exam Vital Signs: Vital Signs: Last Vital Signs Temp 97.0 F 06/25/21 07:47 Pulse 63 06/25/21 07:47 Resp 17 06/25/21 07:47 BP 127/77 06/25/21 07:47 Pulse Ox 98 06/25/21 07:47 BMI result Body Mass Index 31.3 Const: Other: General: AO X 3, no acute distress Resp: CTA bilateral CVS: S1,S2,RRR GI: +BS, NT, no distention Skin: No rash Neuro: motor grossly intact Psych: appropriate affect DS: Data Data Completed and Pending Completed studies during hospitalization [Text1]: Procedures Detoxification Services for Substance Abuse Treatment (11/04/20) Labs on day of discharge: Laboratory Results - last 24 hr 06/24/21 06/24/21 06/24/21 06:15 11:03 15:48 POC Glucose 111 116 H Lipase 140 H 06/24/21 06/25/21 19:24 07:35 POC Glucose 97 104 Lipase Discharge Plan Discharge Anticipated Discharge Date/Time: 06/25/21 10:00 Patient Disposition: Home, Self-Care Discharge Diagnosis: acute alcoholic pancreatitis Referrals: Physician,Unknown J [Primary Care Provider] - 1 Week Discharge Medications: Continued Jardiance 25 mg tablet 25 mg PO DAILY 0RF Rx Instructions: Per patient and Salma (KLARISSA for Dr Gilbert) This replaces trulicty. patient is not on metformin anymore either folic acid 1 mg Tablet 1 mg PO DAILY Qty: 30 0RF thiamine mononitrate (vit B1) 100 mg Tablet 100 mg PO DAILY Qty: 30 0RF quetiapine 300 mg tablet 300 mg PO BEDTIME 0RF metoprolol succinate 50 mg tablet extended release 24 hr 50 mg PO DAILY 0RF Rx Instructions: Per KLARISSA for Dr. Gilbert, only taking metoprolol. Lisinopril no longer active trazodone 150 mg tablet 150 mg PO BEDTIME 0RF lisinopril 10 mg tablet 1 tab PO DAILY 0RF sertraline 100 mg tablet 1 tab PO DAILY 0RF ondansetron 4 mg tablet,disintegrating 4 mg PO Q8H PRN (Reason: nausea and vomiting) Qty: 20 0RF Discharge Orders: Discharge Order (Routine); Ordered 06/25/21 Ordered By: Rigo Nguyen Diet: advance to usual diet Activity on Discharge: As tolerated Stand Alone Forms: Patient Portal Discharge page Care Plan Goals: full recovery from pancreatitis Health Concerns: alcohol related pancreatitis alcohol use disorder Plan of Treatment: avoid alcohol at all cost, follow-up with her primary care doctor within a week, call for appointment. Assessment: as above
--- NOTE | 2021-06-25 11:16 | MHC.CM.PN ---
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
== END 2021-06-25 10:14 | disposition home or self-care (01) | DRG 439 ==
LOC: HO.ED 11:18 → HO.EDOVER 13:19 → HO.S3 14:52
PROVIDERS: Admitting Provider Internal Medicine; Emergency Provider Emergency Medicine; Visit Provider Internal Medicine
DX: K85.20 Alcohol induced acute pancreatitis without necrosis or infection (principal); F10.239 Alcohol dependence with withdrawal, unspecified; I10 Essential (primary) hypertension; E66.01 Morbid (severe) obesity due to excess calories; Z20.822 Contact with and (suspected) exposure to COVID-19; Z68.31 Body mass index [BMI] 31.0-31.9, adult; Z79.899 Other long term (current) drug therapy
CPT/HCPCS: 36415; 71045; 74176; 80048; 80053; 81001; 82947; 83690; 84484; 85027; 87635; 93005; 96361; 96374; 96375; 96376; 99285; J1170; J1650; J1885; J2270; J2405

== ENCOUNTER 2021-08-05 11:01 | Inpatient (IN) | payer OTHER, SELFPAY ==
--- NOTE | ~2021-08-05 | CT_ITS ---
EXAMINATION: CT ABDOMEN AND PELVIS WITHOUT CONTRAST CLINICAL INFORMATION: Epigastric pain with lipase of 822 COMPARISON: CT abdomen pelvis 06/24/2019 TECHNIQUE: Multidetector volumetric imaging was performed from the superior aspect of the liver through the pubic symphysis. Sagittal and coronal reformatted images were obtained on the technologist's workstation. This CT examination was performed using dose optimization techniques as appropriate, variously including the following: *Automated exposure control *Adjustment of mA and/or kV according to patient size (this includes techniques or standardized protocols for targeted exams where dose is matched to indication/reason for exam; i.e. extremities or head) *Use of iterative reconstruction technique DLP: 666 mGy-cm FINDINGS: LUNG BASES: The visualized lung bases are unremarkable. LIVER, GALLBLADDER, AND BILIARY TREE: The liver is normal in size and shape but demonstrates decreased attenuation consistent with hepatic steatosis. No focal hepatic lesion or biliary ductal dilatation is present. The gallbladder is unremarkable with no evidence of radiopaque gallstones, gallbladder wall thickening, or obvious pericholecystic inflammatory changes. PANCREAS: Inflammatory changes are present around the pancreatic head and body with a tiny amount of fluid in the anterior pararenal space. Findings are consistent with acute pancreatitis. At the time of the prior study on 06/23/2021 the changes were limited to the pancreatic head and uncinate process but they appear a bit more diffuse at this time. Prominent pancreatic lymph nodes are seen but there is no retroperitoneal lymphadenopathy. Focal nodular area of soft tissue thickening in left anterior pararenal fascia measuring about a centimeter is unchanged (3:37). SPLEEN: Unremarkable. ADRENAL GLANDS: Unremarkable. KIDNEYS AND URETERS: The kidneys are normal in size, shape, and attenuation. No hydronephrosis, hydroureter, or calculi seen. No perinephric stranding. BLADDER: Unremarkable. GASTROINTESTINAL TRACT: The small and large bowel are unremarkable. The appendix is unremarkable. ABDOMINAL WALL: No hernia repair. There is been prior anterior abdominal/low pelvic wall surgery. LYMPH NODES: No retroperitoneal lymphadenopathy. VASCULAR: Calcific plaque without aneurysm. PELVIC VISCERA: Prostate and seminal vesicles unremarkable. Vas deferens are calcified. OSSEOUS STRUCTURES: Right hip prosthesis is present. CT/CT abdomen pelvis wo con IMPRESSION: Continued changes of pancreatitis, slightly worse when compared to 06/23/2021. No drainable fluid collections or pseudocysts are seen. Fleischner guidelines were followed.
[2021-08-05 11:07] VITALS: BP 140/92; PULSE 85; RESP 20; TEMP 36.8; O2SAT 96; BMI 29.9
--- NOTE | 2021-08-05 11:14 | ED_ITS ---
HPI - Psych General Chief Complaint: Psychiatric Symptoms Stated Complaint: spine pain, stomach pain Time Seen by Provider: 08/05/21 11:13 Source: patient Mode of arrival: ambulatory Limitations: no limitations History of Present Illness MD complaint: suicidal ideation, feels depressed, homicidal ideation, substance abuse and alcohol abuse Onset (ago): week(s) (1) Duration: constant History of same: Yes Relieving factors: none Exacerbating factors: alcohol and drug use Context: recent alcohol abuse, recent drug abuse and significant life stressor (dad 1 week ago) Associated psychiatric symptoms: depression, suicidal ideation and homicidal ideation Associated symptoms: denies other symptoms Treatments prior to arrival: none If self harm: admits thoughts of self harm and self-inflicted trauma (used knife to cut his arms) Related Data Home Medications Medication Instructions Recorded Confirmed metoprolol succinate 50 mg 50 mg PO DAILY 02/27/20 06/23/21 tablet,extended release 24 hr quetiapine 300 mg tablet 300 mg PO BEDTIME 02/27/20 06/23/21 trazodone 150 mg tablet 150 mg PO BEDTIME 02/27/20 06/23/21 empagliflozin 25 mg tablet 25 mg PO DAILY 05/22/20 06/23/21 (Jardiance) lisinopril 10 mg tablet 1 tab PO DAILY 11/04/20 06/23/21 sertraline 100 mg tablet 1 tab PO DAILY 06/23/21 06/23/21 Previous Rx's Medication Instructions Recorded folic acid 1 mg tablet 1 mg PO DAILY #30 tabs 05/26/20 thiamine mononitrate (vit B1) 100 100 mg PO DAILY #30 tabs 05/26/20 mg tablet ondansetron 4 mg disintegrating 4 mg PO Q8H PRN nausea and 06/10/21 tablet vomiting #20 tabs Allergies Allergy/AdvReac Type Severity Reaction Status Date / Time No Known Allergies Allergy Verified 11/04/20 16:32 [No Known Allergies*] Review of Systems Review of Systems: Constitutional : No Fever, No Chills ENT/Mouth : No Ear Pain, No Nasal Congestion, No sore throat Eyes: No Eye Pain, No Swelling, No Redness Cardiovascular : No Chest Pain, No SOB Respiratory : No Cough, No Sputum, No Dyspnea Gastrointestinal : No Nausea, No Vomiting, No Diarrhea, No Hematochezia, No Melena Genitourinary : No Dysuria, No Urinary Frequency, No Hematuria Musculoskeletal : No Myalgias Skin : No Skin Lesions, No rash Neuro : No Weakness, No Numbness, No Paresthesias, No Dizziness, No Headache Psych : positive Anxiety, positive Depression, positive SI/HI Heme/Lymph: No Lymphadenopathy Endocrine : No Polyuria, No Polydipsia All other systems reviewed and are negative [facility] Past Medical History Attestation statement: The following information was validated with the patient. Medical History Alcohol abuse Alcohol withdrawal Arthritis Cocaine abuse Diabetes mellitus Duodenitis Hypertension Pancreatitis Pancreatitis Seizures Surgical History H/O hernia repair Family History Family History Other CAD (coronary artery disease) Diabetes mellitus Social History Social History Household Members: None Housing: House Do you presently have visiting nurse or other home services: No Alcohol intake: current Alcohol intake frequency: a few times a week Alcohol type: beer Patient Tobacco Use Status: Never used Tobacco Second Hand Smoke Exposure: No Substance Use Type: Prescription Drugs Advance Directives: Yes Advance Directives on File: Yes Advance Directives Date on File: 02/27/20 service: No Current occupational status: disabled Physical Exam Vital Signs: Vital Signs: Last Vital Signs Temp 97.9 F 08/05/21 14:17 Pulse 77 08/05/21 14:17 Resp 12 08/05/21 14:17 BP 149/88 H 08/05/21 14:17 Pulse Ox 96 08/05/21 14:17 O2 Del Method 08/05/21 14:17 BMI result Body Mass Index 29.9 Appearance: Alert. Oriented X3. No acute distress. Anxious tearful, angry at times Eyes: Pupils equal, round and reactive to light. ENT: Pharynx normal. Neck: Normal inspection. Neck supple. CVS: Normal heart rate and rhythm. Pulses normal. Respiratory: No respiratory distress. Breath sounds normal. Abdomen: Soft and verymild epigastric ttp no rebound or guarding Skin: Skin warm and dry. Normal skin color. Normal skin turgor. Extremities: No lower extremity edema. No calf ttp superficial abrasions to both forearms Neuro: Oriented X 3. No motor deficit. No sensory deficit. Course Course Course Narrative: lipase 822 patient asleep - CT scan ordered patient awake now c/o pain in epigastric area IV morphine ativan zofran ordered LR ordered, LDH pending CT scan worse than prior will need medical admission then BHN consult once medically cleared drinks 6+ beers a day will start on phenobarb denies withdrawal symptoms or hx of seizures in past MDM - Psych MDM Narrative Medical decision making narrative: 51 yo male hx of substance abuse c/o SI/HI self harm after his father admits to ETOH and cocaine abuse at this time will need labs, PO ativan, BHn consult once medically cleared, has mild epigastric pain as well worried he might have pancreatitis again after drinking this weekend - lipase ordered. Lab Data Result diagrams: 08/05/21 13:32 08/05/21 13:32 Labs: Lab Results 08/05/21 08/05/21 08/05/21 Range/Units 13:32 13:32 13:32 WBC 10.2 (4.8-10.8) X10*3/uL RBC 4.35 L (4.60-5.80) X10*6/uL Hgb 14.0 (14.0-18.0) g/dl Hct 40.9 L (42.0-52.0) % MCV 94.0 (80.0-98.0) fL MCH 32.2 (27.0-33.0) pg MCHC 34.2 (31.0-36.0) g/dl RDW 12.5 (11.0-16.0) % Plt Count 225 (160-400) X10*3/uL MPV Not Reportable Immature Gran % (Auto) 0.4 (0.0-0.4) % Neut % (Auto) 71.5 (45-73) % Lymph % (Auto) 17.1 L (20-40) % [place] % (Auto) 7.4 (2-11) % Eos % (Auto) 3.0 (0-4) % Baso % (Auto) 0.6 (0-2) % Lymph # (Auto) 1.8 (1.2-4.9) X10*3/uL [place] # (Auto) 0.8 (0.1-1.2) X10*3/uL Eos # (Auto) 0.3 (0.0-0.4) X10*3/uL Baso # (Auto) 0.1 (0.0-0.2) X10*3/uL Abs Immat Gran (auto) 0.04 H (0.00-0.03) X10*3/uL Absolute Neuts (auto) 7.3 (2.0-8.3) x10*3/uL Absolute Nucleated RBC 0.000 (0.0-0.012) X10*3/uL Nucleated RBC % (auto) 0.0 (0.0-0.2) /100WBC Smear Tech's Comments VERIFIED Sodium 136 (135-145) mmol/L Potassium 3.9 (3.3-5.1) mmol/L Chloride 101 (96-108) mmol/L Carbon Dioxide 27 (22-29) mmol/L Anion Gap 12 (12-20) BUN 13 D (9-16) mg/dL Creatinine 0.91 (0.5-1.4) mg/dL Estim Creat Clear Calc 101.9 Estimated GFR > 60 Random Glucose 182 H D (60-115) mg/dL Calcium 9.6 (8.4-10.2) mg/dL Magnesium 1.6 (1.6-2.6) mg/dL Total Bilirubin 0.8 (0.0-1.0) mg/dL Direct Bilirubin 0.4 (0.0-0.5) mg/dL AST 57 H (5-37) U/L ALT 46 H (0-40) U/L Alkaline Phosphatase 96 (39-117) U/L Lactate Dehydrogenase 161 (118-273) U/L Total Protein 7.0 (6.5-8.0) g/dL Albumin 4.3 (3.5-5.0) g/dL Lipase 822 H (8-78) U/L Urine Opiates Screen (Not Detect) Urine Fentanyl Screen (Not Detect) Ur Barbiturates Screen (Not Detect) Ur Phencyclidine Scrn (Not Detect) Ur Amphetamines Screen (Not Detect) U Benzodiazepines Scrn (Not Detect) Urine Cocaine Screen (Not Detect) U Marijuana (THC) Screen (Not Detect) Ethyl Alcohol mg/dL COVID-19 (BUD) Negative (Negative) COVID-19 Clin Com See Note 08/05/21 08/05/21 Range/Units 13:32 13:33 WBC (4.8-10.8) X10*3/uL RBC (4.60-5.80) X10*6/uL Hgb (14.0-18.0) g/dl Hct (42.0-52.0) % MCV (80.0-98.0) fL MCH (27.0-33.0) pg MCHC (31.0-36.0) g/dl RDW (11.0-16.0) % Plt Count (160-400) X10*3/uL MPV Immature Gran % (Auto) (0.0-0.4) % Neut % (Auto) (45-73) % Lymph % (Auto) (20-40) % [place] % (Auto) (2-11) % Eos % (Auto) (0-4) % Baso % (Auto) (0-2) % Lymph # (Auto) (1.2-4.9) X10*3/uL [place] # (Auto) (0.1-1.2) X10*3/uL Eos # (Auto) (0.0-0.4) X10*3/uL Baso # (Auto) (0.0-0.2) X10*3/uL Abs Immat Gran (auto) (0.00-0.03) X10*3/uL Absolute Neuts (auto) (2.0-8.3) x10*3/uL Absolute Nucleated RBC (0.0-0.012) X10*3/uL Nucleated RBC % (auto) (0.0-0.2) /100WBC Smear Tech's Comments Sodium (135-145) mmol/L Potassium (3.3-5.1) mmol/L Chloride (96-108) mmol/L Carbon Dioxide (22-29) mmol/L Anion Gap (12-20) BUN (9-16) mg/dL Creatinine (0.5-1.4) mg/dL Estim Creat Clear Calc Estimated GFR Random Glucose (60-115) mg/dL Calcium (8.4-10.2) mg/dL Magnesium (1.6-2.6) mg/dL Total Bilirubin (0.0-1.0) mg/dL Direct Bilirubin (0.0-0.5) mg/dL AST (5-37) U/L ALT (0-40) U/L Alkaline Phosphatase (39-117) U/L Lactate Dehydrogenase (118-273) U/L Total Protein (6.5-8.0) g/dL Albumin (3.5-5.0) g/dL Lipase (8-78) U/L Urine Opiates Screen Not Detected (Not Detect) Urine Fentanyl Screen Not Detected (Not Detect) Ur Barbiturates Screen Not Detected (Not Detect) Ur Phencyclidine Scrn Not Detected (Not Detect) Ur Amphetamines Screen Not Detected (Not Detect) U Benzodiazepines Scrn Not Detected (Not Detect) Urine Cocaine Screen POSITIVE H (Not Detect) U Marijuana (THC) Screen Not Detected (Not Detect) Ethyl Alcohol < 10 mg/dL COVID-19 (BUD) (Negative) COVID-19 Clin Com Discharge Plan Discharge Clinical Impression: Suicidal ideation, Cocaine abuse Acute pancreatitis Qualifiers: Pancreatitis type: alcohol induced Acute pancreatitis complication: unspecified Qualified Code(s): K85.20 - Alcohol induced acute pancreatitis without necrosis or infection Patient Disposition: Admitted As Inpatient
[2021-08-05] MEDS: Diphth,Pertus(ACell),Tet Adult 0.5 ML SYRINGE IM (12:40)
[2021-08-05] MEDS: LORazepam 1 MG TABLET 2 MG PO (12:40)
[2021-08-05 13:43] LABS: Basophils Absolute Auto 0.1 X10*3/uL (0.0-0.2); Basophils Percent Auto 0.6 % (0-2); Eosinophils Absolute Auto 0.3 X10*3/uL (0.0-0.4); Hematocrit 40.9 % (42.0-52.0); Imm Gran Abs Auto 0.04 X10*3/uL (0.00-0.03); Imm Gran Pct Auto 0.4 % (0.0-0.4); Lymphocytes Absolute Auto 1.8 X10*3/uL (1.2-4.9); Lymphocytes Percent Auto 17.1 % (20-40); MANUAL DIFF FLAG SCAN; Mean Corpuscular HGB Conc 34.2 g/dl (31.0-36.0); Mean Corpuscular Hemoglobin 32.2 pg (27.0-33.0); Monocytes Absolute Auto 0.8 X10*3/uL (0.1-1.2); Monocytes Percent Auto 7.4 % (2-11); Neutrophils Absolute Auto 7.3 x10*3/uL (2.0-8.3); Neutrophils Percent Auto 71.5 % (45-73); PLT CLUMP 1; Red Blood Count 4.35 X10*6/uL (4.60-5.80); Red Cell Distribution Width 12.5 % (11.0-16.0); SCAN SMEAR FLAG 1
[2021-08-05 14:01] LABS: COVID-19 Test Negative (Negative)
[2021-08-05 14:02] LABS: Ethanol < 10 mg/dL
[2021-08-05 14:03] LABS: Amphetamine Screen Urine Not Detected (Not Detect); Barbiturates, Urine Not Detected (Not Detect); Benzodiazepines Screen Urine Not Detected (Not Detect); Cannabinoid Screen Urine Not Detected (Not Detect); Cocaine Screen Urine POSITIVE (Not Detect); Fentanyl, urine Not Detected (Not Detect); Opiate Screen Urine Not Detected (Not Detect); Phencyclidine Screen Urine Not Detected (Not Detect)
[2021-08-05 14:05] LABS: Alanine Aminotransferase 46 U/L (0-40); Albumin Level 4.3 g/dL (3.5-5.0); Alkaline Phosphatase 96 U/L (39-117); Anion Gap 12 (12-20); Aspartate Amino Transferase 57 U/L (5-37); Bilirubin Direct 0.4 mg/dL (0.0-0.5); Bilirubin Total 0.8 mg/dL (0.0-1.0); Blood Urea Nitrogen 13 mg/dL (9-16); Calcium 9.6 mg/dL (8.4-10.2); Carbon Dioxide 27 mmol/L (22-29); Chloride 101 mmol/L (96-108); Creatinine Clr Calc Pharmacy 101.9; Estimated Glomerular Filt Rate > 60; Glucose Random 182 mg/dL (60-115); Lipase 822 U/L (8-78); Magnesium 1.6 mg/dL (1.6-2.6); Potassium 3.9 mmol/L (3.3-5.1); Sodium 136 mmol/L (135-145)
[2021-08-05 14:10] LABS: Platelet Count 225 X10*3/uL (160-400); SLIDE REVIEW VERIFIED; White Blood Count 10.2 X10*3/uL (4.8-10.8)
[2021-08-05 14:17] VITALS: BP 149/88; PULSE 77; RESP 12; TEMP 36.6; O2SAT 96
[2021-08-05 16:07] LABS: Lactate Dehydrogenase 161 U/L (118-273)
--- NOTE | 2021-08-05 16:20 | MHC.CARE ---
Please notify CARE team when the pt is medically cleared for crisis evaluation.
--- NOTE | 2021-08-05 16:23 | P.HPHOSP_ITS ---
History of Present Illness Date of Service: 08/05/21 Chief Complaint: Abdominal pain 51 year old man presenting to the ED with Suicide ideation and abdominal pain. He has a hx of alcohol induced pancreatitis with recent admission in June. He also had SI as his father recently . He reported that he has not been eating very well and states that he does not drink every day but drinks about a case of beer on the weekends. He has not been eating or drinking well and started to have abdominal pain with nausea. He denied fever, chills, chest pain, shortness of breath, vomiting, diarrhea. He does have cuts on his arms from him cutting himself. His lipase was 822, cocaine positive, abd CT showing pancreatitis slightly worse than in June. No fluid collection of pseudocyst. He was given ativan, morphine, zofran and started on phenobarbitol. He will be admitted for further management and treatment of acute pancreatitis. Review of Systems Review of Systems: Denies any recent fever chills or decrease in appetite respiratory denies any shortness of breath coverage production cardiovascular denies chest pain gastrointestinal See HPI genitourinary denies any dysuria frequency or hematuria musculoskeletal denies any joint pain or swelling neuropsych denies any weakness or seizures all other systems reviewed are negative [facility] Medical History (Updated 08/05/21 @ 16:24 by Windy Grady NP) Alcohol abuse Alcohol withdrawal Arthritis Cocaine abuse Diabetes mellitus Duodenitis Hypertension Pancreatitis Seizures Family History Other CAD (coronary artery disease) Diabetes mellitus Surgical History H/O hernia repair Social History (Updated 08/05/21 @ 16:25 by Windy Grady NP) Household Members: None Housing: House Do you presently have visiting nurse or other home services: No Alcohol intake: current Alcohol intake frequency: a few times a week Alcohol type: beer Patient Tobacco Use Status: Never used Tobacco Second Hand Smoke Exposure: No Substance Use Type: Prescription Drugs Advance Directives: Yes Advance Directives on File: Yes Advance Directives Date on File: 02/27/20 Current/Past Psychiatric Disorders: Alcohol abuse Risk Factors Comment: SI service: No Current occupational status: disabled Meds Allergies Allergy/AdvReac Type Severity Reaction Status Date / Time No Known Allergies Allergy Verified 11/04/20 16:32 [No Known Allergies*] Active Medications: Current Medications Acetaminophen (Acetaminophen 325 Mg Tablet) 650 mg PO Q6H PRN PRN Reason: Pain, Mild (Pain Scale 1-3) Dextrose (Dextrose 50 % 25 Gm/50 Ml Syringe) 25 gm IVPUSH Q15M PRN; Protocol PRN Reason: per Hypoglycemia Standing Ord. Enoxaparin Sodium (Enoxaparin Sodium 40 Mg/0.4 Ml Syringe) 40 mg SUBCUT Q24H [facility] Famotidine (Famotidine/Pf 20 Mg/2 Ml Vial) 20 mg IVPUSH BID [facility] Folic Acid (Folic Acid 1 Mg Tablet) 1 mg PO DAILY [facility] Glucose (Glucose Gel 15 Gm Gel..Gram.) 15 gm PO Q15M PRN; Protocol PRN Reason: per Hypoglycemia Standing Ord. Lactated Ringer's (Lr) 1,000 mls @ 999 mls/hr IV .Q1H1M [facility] Stop: 08/05/21 16:45 Lactated Ringer's (Lr) 1,000 mls @ 200 mls/hr IVCONT .Q5H [facility] Insulin Human Lispro (Insulin Lispro 100 Unit/Ml 3 Ml Vial) 0 unit SUBCUT QIDACHS [facility]; Protocol Morphine Sulfate (Morphine Sulfate 2 Mg/Ml Cartridge) 2 mg IVPUSH Q4H PRN; Protocol PRN Reason: Pain, Mild (Pain Scale 1-3) Multivitamins/Vitamin C (Multivitamin Tablet) 1 tab PO DAILY [facility] Ondansetron HCl (Ondansetron Hcl 4 Mg/2 Ml Vial) 4 mg IVPUSH Q8H PRN PRN Reason: Nausea and Vomiting Pharmacy Consult (Consult Rx Perform Med Rec) 1 each MISCELLANE ONCE PRN PRN Reason: Consult order Pharmacy Consult (Consult Rx Etoh Phenob Im/Po) 1 each MISCELLANE ONCE PRN; Protocol PRN Reason: Consult order Sodium Chloride (0.9 % Sodium Chloride Flush 3 Ml Syringe) 3 ml IVFLUSH QSHIFT [facility] Thiamine HCl (Thiamine Hcl 100 Mg Tablet) 100 mg PO DAILY [facility] Home Medications Medication Instructions Recorded Confirmed Last Taken Type metoprolol succinate 50 mg 50 mg PO DAILY 02/27/20 08/05/21 08/05/21 History tablet,extended release 24 hr quetiapine 300 mg tablet 300 mg PO BEDTIME 0108/05/21 08/04/21 History trazodone 150 mg tablet 150 mg PO BEDTIME 02/27/20 08/05/21 08/04/21 History empagliflozin 25 mg tablet 25 mg PO DAILY 05/22/20 08/05/21 08/05/21 History (Jardiance) lisinopril 10 mg tablet 1 tab PO DAILY 11/04/20 08/05/21 08/05/21 History sertraline 100 mg tablet 1 tab PO DAILY 06/23/21 08/05/21 08/05/21 History Physical Exam Vital Signs and Narrative: Vital Signs: Last Vital Signs Temp 97.9 F 08/05/21 14:17 Pulse 77 08/05/21 14:17 Resp 12 08/05/21 14:17 BP 149/88 H 08/05/21 14:17 Pulse Ox 96 08/05/21 14:17 O2 Del Method 08/05/21 14:17 BMI result Body Mass Index 29.9 Appearing in no acute distress head is normocephalic atraumatic eyes pupils are PERRLA sclera is anicteric mouth throat mucous membranes are intact and moist neck is supple no lymphadenopathy, no JVD noted lung sounds are clear to auscultation heart regular rate rhythm, clear S1, S2 positive bowel sounds, abdomen is soft, nontender neuro patient is alert x3, no focal deficits Results Labs CBC and Chem 7: 08/05/21 13:32 08/05/21 13:32 Labs: Laboratory Results - last 24 hr 08/05/21 08/05/21 08/05/21 13:32 13:32 13:32 MCV 94.0 MCH 32.2 MCHC 34.2 RDW 12.5 Plt Count 225 MPV Not Reportable Immature Gran % (Auto) 0.4 Neut % (Auto) 71.5 Lymph % (Auto) 17.1 L [place] % (Auto) 7.4 Eos % (Auto) 3.0 Baso % (Auto) 0.6 Lymph # (Auto) 1.8 [place] # (Auto) 0.8 Eos # (Auto) 0.3 Baso # (Auto) 0.1 Abs Immat Gran (auto) 0.04 H Absolute Neuts (auto) 7.3 Absolute Nucleated RBC 0.000 Nucleated RBC % (auto) 0.0 Smear Tech's Comments VERIFIED Anion Gap 12 Estim Creat Clear Calc 101.9 Estimated GFR > 60 Random Glucose 182 H D Calcium 9.6 Magnesium 1.6 Total Bilirubin 0.8 Direct Bilirubin 0.4 AST 57 H ALT 46 H Alkaline Phosphatase 96 Lactate Dehydrogenase 161 Total Protein 7.0 Albumin 4.3 Lipase 822 H Urine Opiates Screen Urine Fentanyl Screen Ur Barbiturates Screen Ur Phencyclidine Scrn Ur Amphetamines Screen U Benzodiazepines Scrn Urine Cocaine Screen U Marijuana (THC) Screen Ethyl Alcohol COVID-19 (BUD) Negative COVID-19 Clin Com See Note 08/05/21 08/05/21 13:32 13:33 MCV MCH MCHC RDW Plt Count MPV Immature Gran % (Auto) Neut % (Auto) Lymph % (Auto) [place] % (Auto) Eos % (Auto) Baso % (Auto) Lymph # (Auto) [place] # (Auto) Eos # (Auto) Baso # (Auto) Abs Immat Gran (auto) Absolute Neuts (auto) Absolute Nucleated RBC Nucleated RBC % (auto) Smear Tech's Comments Anion Gap Estim Creat Clear Calc Estimated GFR Random Glucose Calcium Magnesium Total Bilirubin Direct Bilirubin AST ALT Alkaline Phosphatase Lactate Dehydrogenase Total Protein Albumin Lipase Urine Opiates Screen Not Detected Urine Fentanyl Screen Not Detected Ur Barbiturates Screen Not Detected Ur Phencyclidine Scrn Not Detected Ur Amphetamines Screen Not Detected U Benzodiazepines Scrn Not Detected Urine Cocaine Screen POSITIVE H U Marijuana (THC) Screen Not Detected Ethyl Alcohol < 10 COVID-19 (BUD) COVID-19 Clin Com Imaging Radiologist's Impressions: Impressions Abdomen/Pelvis CT 08/05/21 14:44 IMPRESSION: Continued changes of pancreatitis, slightly worse when compared to 06/23/2021. No drainable fluid collections or pseudocysts are seen. Fleischner guidelines were followed. Assessment and Plan (1) Acute pancreatitis: Qualifiers: Acute pancreatitis complication: unspecified Pancreatitis type: alcohol induced Qualified Code(s): K85.20 - Alcohol induced acute pancreatitis without necrosis or infection Status: Acute Plan 51 year old man admitted with acute pancreatitis with hx of alcohol abuse and recent admission on 06/2021 for pancreatitis. He also had SI as his father recently Pancreatitis Hx of alcohol abuse Aggressive IV fluids IV pain medications Pepcid BID Clear liquids, advance as tolerated If no improvement consider GI consult SI Sitter Care team consult When medically cleared Alcohol abuse Started phenobarb thiamine, folic acid, MVI Diabetes SS, ADA diet Mental health continue home medications Hypertension continue home medications DVT prophylaxis with Lovenox Attending Dr. Post Full code 2 midnight stay for tx of acute pancreatitis requiring aggressive IV fluids and Iv pain medications Quality Stroke Does the patient have a stroke diagnosis?: No VTE Prior VTE?: No VTE Risk Level:: Medical - moderate - high VTE Device Contraindication: Treatment Not Indicated VTE Drug Contraindication: N/A - Med Ordered
--- NOTE | 2021-08-05 16:49 | PHA.MEDREC ---
Pharmacy Consult ? Medication Reconciliation Pharmacy has completed the medication reconciliation.
[2021-08-05 17:04] VITALS: BP 162/95; PULSE 69; RESP 20; TEMP 36.6; O2SAT 98
[2021-08-05 17:41] VITALS: RESP 18
[2021-08-05] MEDS: ondansetron HCL 4 MG/2 ML VIAL IVPUSH (17:41)
[2021-08-05] MEDS: Morphine Sulfate 4 MG/ML CARTRIDGE IVPUSH (17:41)
[2021-08-05] MEDS: Lactated Ringers 1,000 ML 999 ML IV (17:47)
[2021-08-05] MEDS: PHENobarbitaL sodium 130 MG/ML IM ONCE 220 MG IM (17:53)
[2021-08-05] MEDS: Enoxaparin Sodium 40 MG/0.4 ML SYRINGE SUBCUT (17:58)
[2021-08-05 18:34] LABS: Glucose, Whole Blood 136 mg/dL (60-115)
[2021-08-05 19:02] LABS: Lipase 572 U/L (8-78)
[2021-08-05] MEDS: Famotidine/PF 20 MG/2 ML VIAL IVPUSH (19:32)
[2021-08-05] MEDS: Lactated Ringers 1,000 ML 200 ML IVCONT (19:32)
[2021-08-05] MEDS: PHENobarbitaL sodium 130 MG/ML VIAL IM Q3Hx2 165 MG IM ×2 (19:36→22:41)
[2021-08-05 19:53] VITALS: BP 162/96; PULSE 76; RESP 18; TEMP 36.7; O2SAT 97
--- NOTE | 2021-08-05 19:53 | PC.NURSE ---
Addendum entered by Gisela Hogan 08/05/21 21:57: report given to LUIS Obando Original Note: pt alert and oriented. resting in bed. no signs of acute distress notice. sitter by bedside
--- NOTE | 2021-08-05 20:19 | MHC.RECOVSUP ---
? Reason for consult:Recovery Support o Current location: [facility]? o Identified substance use concern: Alcohol - Withdrawal - Support ? ?Intervention: o Community resources provided o Harm reduction discussion ? Plan: o Referral to CCC ? Additional information:Patient consultation with Naye Curtis from the Care Team before initial contact. Patient is a 51 year old male with a long history of AUD. Berny has suffered a loss of a parent this past week and has been self mutilating by route of cutting on his forearms. Patient's states his siblings has gave up on him and cut him out of all family finances from his fathers will. We reviewed harm reduction strategies, referral for CCC and community resources where left with him.
[2021-08-05 22:09] LABS: Glucose, Whole Blood 115 mg/dL (60-115)
[2021-08-05 22:31] VITALS: BP 169/99; PULSE 80; RESP 16; TEMP 36.5; O2SAT 97
[2021-08-06] VITALS (8 sets, daily range): BP systolic 125–184; BP diastolic 78–115; PULSE 68–86; RESP 15–20; TEMP 36.2–37.2; O2SAT 96–98; BMI 29.9
[2021-08-06] MEDS: Morphine Sulfate 2 MG/ML CARTRIDGE IVPUSH ×5 (00:02→20:11)
[2021-08-06] MEDS: Lactated Ringers 1,000 ML 200 ML IVCONT ×5 (00:21→23:21)
[2021-08-06] MEDS: traZODone HCL 50 MG TABLET PO (00:43)
[2021-08-06 07:28] LABS: MANUAL DIFF FLAG NO
[2021-08-06 07:36] LABS: Basophils Absolute Auto 0.1 X10*3/uL (0.0-0.2); Basophils Percent Auto 0.7 % (0-2); Eosinophils Absolute Auto 0.3 X10*3/uL (0.0-0.4); Eosinophils Percent Auto 3.5 % (0-4); Hematocrit 38.8 % (42.0-52.0); Hemoglobin 13.5 g/dl (14.0-18.0); Imm Gran Abs Auto 0.06 X10*3/uL (0.00-0.03); Imm Gran Pct Auto 0.7 % (0.0-0.4); Lymphocytes Absolute Auto 1.7 X10*3/uL (1.2-4.9); Lymphocytes Percent Auto 19.2 % (20-40); Mean Corpuscular HGB Conc 34.8 g/dl (31.0-36.0); Mean Corpuscular Hemoglobin 32.8 pg (27.0-33.0); Mean Corpuscular Volume 94.2 fL (80.0-98.0); Mean Platelet Volume 9.4 fL (9.4-12.4); Monocytes Absolute Auto 0.7 X10*3/uL (0.1-1.2); Monocytes Percent Auto 8.3 % (2-11); Neutrophils Absolute Auto 5.9 x10*3/uL (2.0-8.3); Neutrophils Percent Auto 67.6 % (45-73); Platelet Count 192 X10*3/uL (160-400); Red Blood Count 4.12 X10*6/uL (4.60-5.80); Red Cell Distribution Width 12.3 % (11.0-16.0); White Blood Count 8.7 X10*3/uL (4.8-10.8)
[2021-08-06 07:45] LABS: Glucose, Whole Blood 135 mg/dL (60-115)
[2021-08-06 07:53] LABS: Anion Gap 12 (12-20); Blood Urea Nitrogen 7 mg/dL (9-16); Calcium 8.7 mg/dL (8.4-10.2); Carbon Dioxide 27 mmol/L (22-29); Chloride 100 mmol/L (96-108); Creatinine Clr Calc Pharmacy 134.4; Estimated Glomerular Filt Rate > 60; Glucose Random 149 mg/dL (60-115); Potassium 3.8 mmol/L (3.3-5.1); Sodium 135 mmol/L (135-145)
[2021-08-06] MEDS: PHENobarbitaL 15 MG TABLET 45 MG PO ×2 (08:10→20:10)
[2021-08-06] MEDS: Thiamine HCL 100 MG TABLET PO (08:11)
[2021-08-06] MEDS: Multivitamin TABLET 1 TAB PO (08:11)
[2021-08-06] MEDS: Folic Acid 1 MG TABLET PO (08:11)
[2021-08-06] MEDS: Famotidine/PF 20 MG/2 ML VIAL IVPUSH ×2 (08:11→20:10)
--- NOTE | 2021-08-06 08:54 | MHC.CM.PN ---
Addendum entered by Melonie Crespo 08/06/21 09:04: HCP IS ON FILE. Addendum entered by Melonie Crespo 08/06/21 08:58: A Care team consult has been ordered. DP home with community resource information from the Care team. Original Note: IMM 08/06/21 Male 51 DX Pancreatitis He lives alone and is independent with all functional mobility. DP home no services family transport.
--- NOTE | 2021-08-06 11:36 | P.PNIM_ITS ---
Subjective Subjective Date of Service: 08/06/21 Review of Systems Follow up pancreatitis pain is better today resting in bed Physical Exam Vital Signs: Vital Signs: Last Vital Signs Temp 97.5 F 08/06/21 08:00 Pulse 73 08/06/21 08:00 Resp 18 08/06/21 08:00 BP 133/80 08/06/21 08:00 Pulse Ox 98 08/06/21 08:00 O2 Del Method 08/06/21 08:00 BMI result Body Mass Index 29.9 Appearing in no acute distress lung sounds are clear to auscultation heart regular rate rhythm, clear S1, S2 positive bowel sounds, abdomen is soft, nontender neuro patient is alert x3, no focal deficits Objective Data Active Medications Acetaminophen (Acetaminophen 325 Mg Tablet) 650 mg PO Q6H PRN PRN Reason: Pain, Mild (Pain Scale 1-3) Dextrose (Dextrose 50 % 25 Gm/50 Ml Syringe) 25 gm IVPUSH Q15M PRN; Protocol PRN Reason: per Hypoglycemia Standing Ord. Enoxaparin Sodium (Enoxaparin Sodium 40 Mg/0.4 Ml Syringe) 40 mg SUBCUT Q24H [facility] Last Admin: 08/05/21 17:58 Dose: 40 mg Documented By: TYSON Famotidine (Famotidine/Pf 20 Mg/2 Ml Vial) 20 mg IVPUSH BID [facility] Last Admin: 08/06/21 08:11 Dose: 20 mg Documented By: DONALD Folic Acid (Folic Acid 1 Mg Tablet) 1 mg PO DAILY [facility] Last Admin: 08/06/21 08:11 Dose: 1 mg Documented By: DONALD Glucose (Glucose Gel 15 Gm Gel..Gram.) 15 gm PO Q15M PRN; Protocol PRN Reason: per Hypoglycemia Standing Ord. Lactated Ringer's (Lr) 1,000 mls @ 150 mls/hr IVCONT .Q6H40M [facility] Last Admin: 08/06/21 09:36 Dose: 200 mls/hr Documented By: DONALD Insulin Human Lispro (Insulin Lispro 100 Unit/Ml 3 Ml Vial) 0 unit SUBCUT QIDACHS [facility]; Protocol Last Admin: 08/06/21 08:05 Dose: Not Given Documented By: DONALD Non-Admin Reason: No Insulin Coverage Morphine Sulfate (Morphine Sulfate 2 Mg/Ml Cartridge) 2 mg IVPUSH Q4H PRN; Protocol PRN Reason: Pain, Mild (Pain Scale 1-3) Last Admin: 08/06/21 09:35 Dose: 2 mg Documented By: DONALD Multivitamins/Vitamin C (Multivitamin Tablet) 1 tab PO DAILY [facility] Last Admin: 08/06/21 08:11 Dose: 1 tab Documented By: DONALD Ondansetron HCl (Ondansetron Hcl 4 Mg/2 Ml Vial) 4 mg IVPUSH Q8H PRN PRN Reason: Nausea and Vomiting Pharmacy Consult (Consult Rx Perform Med Rec) 1 each MISCELLANE ONCE PRN PRN Reason: Consult order Pharmacy Consult (Consult Rx Etoh Phenob Im/Po) 1 each MISCELLANE ONCE PRN; Protocol PRN Reason: Consult order Phenobarbital (Phenobarbital 15 Mg Tablet) 45 mg PO BID [facility] Stop: 08/07/21 21:01 Last Admin: 08/06/21 08:10 Dose: 45 mg Documented By: DONALD Phenobarbital (Phenobarbital 15 Mg Tablet) 15 mg PO BID [facility] Stop: 08/09/21 21:01 Phenobarbital (Phenobarbital 15 Mg Tablet) 15 mg PO DAILY [facility] Stop: 08/11/21 09:01 Sodium Chloride (0.9 % Sodium Chloride Flush 3 Ml Syringe) 3 ml IVFLUSH QSHIFT [facility] Last Admin: 08/06/21 08:05 Dose: Not Given Documented By: DONALD Non-Admin Reason: IV Running Thiamine HCl (Thiamine Hcl 100 Mg Tablet) 100 mg PO DAILY [facility] Last Admin: 08/06/21 08:11 Dose: 100 mg Documented By: DONALD Labs CBC & Chem 7: 08/06/21 07:18 08/06/21 07:18 Labs: Laboratory Results - last 24 hr 08/05/21 08/05/21 08/05/21 13:32 13:32 13:32 MCV 94.0 MCH 32.2 MCHC 34.2 RDW 12.5 Plt Count 225 MPV Not Reportable Immature Gran % (Auto) 0.4 Neut % (Auto) 71.5 Lymph % (Auto) 17.1 L [place] % (Auto) 7.4 Eos % (Auto) 3.0 Baso % (Auto) 0.6 Lymph # (Auto) 1.8 [place] # (Auto) 0.8 Eos # (Auto) 0.3 Baso # (Auto) 0.1 Abs Immat Gran (auto) 0.04 H Absolute Neuts (auto) 7.3 Absolute Nucleated RBC 0.000 Nucleated RBC % (auto) 0.0 Smear Tech's Comments VERIFIED Anion Gap 12 Estim Creat Clear Calc 101.9 Estimated GFR > 60 POC Glucose Random Glucose 182 H D Calcium 9.6 Magnesium 1.6 Total Bilirubin 0.8 Direct Bilirubin 0.4 AST 57 H ALT 46 H Alkaline Phosphatase 96 Lactate Dehydrogenase 161 Total Protein 7.0 Albumin 4.3 Lipase 822 H Urine Opiates Screen Urine Fentanyl Screen Ur Barbiturates Screen Ur Phencyclidine Scrn Ur Amphetamines Screen U Benzodiazepines Scrn Urine Cocaine Screen U Marijuana (THC) Screen Ethyl Alcohol COVID-19 (BUD) Negative COVID-[employer] See Note 08/05/21 08/05/21 08/05/21 13:32 13:33 18:15 MCV MCH MCHC RDW Plt Count MPV Immature Gran % (Auto) Neut % (Auto) Lymph % (Auto) [place] % (Auto) Eos % (Auto) Baso % (Auto) Lymph # (Auto) [place] # (Auto) Eos # (Auto) Baso # (Auto) Abs Immat Gran (auto) Absolute Neuts (auto) Absolute Nucleated RBC Nucleated RBC % (auto) Smear Tech's Comments Anion Gap Estim Creat Clear Calc Estimated GFR POC Glucose Random Glucose Calcium Magnesium Total Bilirubin Direct Bilirubin AST ALT Alkaline Phosphatase Lactate Dehydrogenase Total Protein Albumin Lipase 572 H Urine Opiates Screen Not Detected Urine Fentanyl Screen Not Detected Ur Barbiturates Screen Not Detected Ur Phencyclidine Scrn Not Detected Ur Amphetamines Screen Not Detected U Benzodiazepines Scrn Not Detected Urine Cocaine Screen POSITIVE H U Marijuana (THC) Screen Not Detected Ethyl Alcohol < 10 COVID-19 (BUD) [employer] 08/05/21 08/05/21 08/06/21 18:29 22:04 07:18 MCV 94.2 MCH 32.8 MCHC 34.8 RDW 12.3 Plt Count 192 MPV 9.4 Immature Gran % (Auto) 0.7 H Neut % (Auto) 67.6 Lymph % (Auto) 19.2 L [place] % (Auto) 8.3 Eos % (Auto) 3.5 Baso % (Auto) 0.7 Lymph # (Auto) 1.7 [place] # (Auto) 0.7 Eos # (Auto) 0.3 Baso # (Auto) 0.1 Abs Immat Gran (auto) 0.06 H Absolute Neuts (auto) 5.9 Absolute Nucleated RBC 0.000 Nucleated RBC % (auto) 0.0 Smear Tech's Comments Anion Gap Estim Creat Clear Calc Estimated GFR POC Glucose 136 H 115 Random Glucose Calcium Magnesium Total Bilirubin Direct Bilirubin AST ALT Alkaline Phosphatase Lactate Dehydrogenase Total Protein Albumin Lipase Urine Opiates Screen Urine Fentanyl Screen Ur Barbiturates Screen Ur Phencyclidine Scrn Ur Amphetamines Screen U Benzodiazepines Scrn Urine Cocaine Screen U Marijuana (THC) Screen Ethyl Alcohol COVID-19 (BUD) COVID-19 Clin Com 08/06/21 08/06/21 07:18 07:39 MCV MCH MCHC RDW Plt Count MPV Immature Gran % (Auto) Neut % (Auto) Lymph % (Auto) [place] % (Auto) Eos % (Auto) Baso % (Auto) Lymph # (Auto) [place] # (Auto) Eos # (Auto) Baso # (Auto) Abs Immat Gran (auto) Absolute Neuts (auto) Absolute Nucleated RBC Nucleated RBC % (auto) Smear Tech's Comments Anion Gap 12 Estim Creat Clear Calc 134.4 Estimated GFR > 60 POC Glucose 135 H Random Glucose 149 H Calcium 8.7 D Magnesium Total Bilirubin Direct Bilirubin AST ALT Alkaline Phosphatase Lactate Dehydrogenase Total Protein Albumin Lipase Urine Opiates Screen Urine Fentanyl Screen Ur Barbiturates Screen Ur Phencyclidine Scrn Ur Amphetamines Screen U Benzodiazepines Scrn Urine Cocaine Screen U Marijuana (THC) Screen Ethyl Alcohol COVID-19 (BUD) COVID-19 Clin Com Assessment and Plan (1) Suicidal ideation: Status: Acute (2) Acute pancreatitis: Status: Acute Plan 51 year old man admitted with acute pancreatitis with hx of alcohol abuse and recent admission on 06/2021 for pancreatitis. He also had SI as his father recently Pancreatitis Hx of alcohol abuse Aggressive IV fluids IV pain medications Pepcid BID? Clear liquids, advance as tolerated If no improvement consider GI consult SI Sitter Care team consult? When medically cleared Alcohol abuse Started phenobarb thiamine, folic acid, MVI Diabetes SS, ADA diet Mental health continue home medications? Hypertension continue home medications DVT prophylaxis with Lovenox Attending Dr. Nguyen Full code continued hospitalization for tx of acute pancreatitis requiring aggressive IV fluids and Iv pain medications Quality Stroke Does the patient have a stroke diagnosis?: No VTE Prior VTE?: No VTE Risk Level:: Medical - moderate - high VTE Device Contraindication: Treatment Not Indicated VTE Drug Contraindication: N/A - Med Ordered
[2021-08-06 11:57] LABS: Glucose, Whole Blood 151 mg/dL (60-115)
[2021-08-06] MEDS: Insulin Lispro 100 UNIT/ML 3 ML VIAL SUBCUT ×2 (12:18→20:10)
[2021-08-06 15:54] LABS: Glucose, Whole Blood 129 mg/dL (60-115)
[2021-08-06] MEDS: Enoxaparin Sodium 40 MG/0.4 ML SYRINGE SUBCUT (16:13)
[2021-08-06 20:03] LABS: Glucose, Whole Blood 165 mg/dL (60-115)
[2021-08-06] MEDS: diphenhydrAMINE HCL 25 MG TABLET PO (21:32)
[2021-08-07 00:01] VITALS: RESP 20
[2021-08-07] MEDS: Morphine Sulfate 2 MG/ML CARTRIDGE IVPUSH ×3 (00:01→08:46)
[2021-08-07] MEDS: QUEtiapine Fumarate 300 MG TABLET PO (00:23)
[2021-08-07 04:00] VITALS: BP 115/72; PULSE 73; RESP 18; TEMP 36.2; O2SAT 96
[2021-08-07] MEDS: Lactated Ringers 1,000 ML 150 ML IVCONT ×2 (05:50→13:06)
[2021-08-07 06:52] LABS: Anion Gap 12 (12-20); Blood Urea Nitrogen 5 mg/dL (9-16); Calcium 8.7 mg/dL (8.4-10.2); Carbon Dioxide 25 mmol/L (22-29); Chloride 102 mmol/L (96-108); Creatinine Clr Calc Pharmacy 134.4; Estimated Glomerular Filt Rate > 60; Glucose Random 140 mg/dL (60-115); Potassium 3.5 mmol/L (3.3-5.1); Sodium 135 mmol/L (135-145)
[2021-08-07 06:53] LABS: Lipase 115 U/L (8-78)
[2021-08-07 07:21] LABS: Glucose, Whole Blood 138 mg/dL (60-115)
[2021-08-07 07:30] VITALS: BP 134/91; PULSE 80; RESP 20; TEMP 36.7; O2SAT 99
[2021-08-07 08:46] VITALS: RESP 22
[2021-08-07] MEDS: PHENobarbitaL 15 MG TABLET 45 MG PO (08:50)
[2021-08-07] MEDS: Thiamine HCL 100 MG TABLET PO (08:52)
[2021-08-07] MEDS: Multivitamin TABLET 1 TAB PO (08:53)
[2021-08-07] MEDS: Folic Acid 1 MG TABLET PO (08:53)
[2021-08-07] MEDS: Acetaminophen 325 MG TABLET 650 MG PO (08:56)
[2021-08-07] MEDS: 0.9 % Sodium Chloride Flush 3 ML SYRINGE IVFLUSH (08:57)
[2021-08-07 10:49] VITALS: BP 120/71; PULSE 85; RESP 20; TEMP 36.7; O2SAT 98
[2021-08-07 11:30] LABS: Glucose, Whole Blood 275 mg/dL (60-115)
[2021-08-07] MEDS: Insulin Lispro 100 UNIT/ML 3 ML VIAL SUBCUT (12:08)
--- NOTE | 2021-08-07 13:41 | MHC.CARE ---
BHN smart sheet completed due to health insurance. ETA pending
[2021-08-07 15:30] VITALS: BP 158/92; PULSE 93; RESP 18; TEMP 37.2; O2SAT 98
--- NOTE | 2021-08-07 17:00 | HO.PM.IMPN ---
Subjective Subjective Date of Service: 08/07/21 Interval History: Seen and examined this morning Follow-up for pancreatitis Reports back pain but no abdominal pain. No fever, no chills, vomiting Review of Systems Review of Systems: Yes all other systems are reviewed and are negative Constitutional Constitutional: Denies chills and Denies fever(s) Cardiovascular Cardiovascular: Denies chest pain Gastrointestinal Gastrointestinal: Denies abdominal pain, Denies nausea and Denies vomiting Physical Exam Vital Signs: Vital Signs: Last Vital Signs Temp 98.9 F 08/07/21 15:30 Pulse 93 08/07/21 15:30 Resp 18 08/07/21 15:30 BP 158/92 H 08/07/21 15:30 Pulse Ox 98 08/07/21 15:30 O2 Del Method 08/07/21 15:30 BMI result Body Mass Index 29.9 Const: Other: Constitutional-sitting up in bed, frustrated, wants more pain medicine Awake, alert, appears to be in no acute distress Pulmonary-lungs clear to auscultation bilaterally Cardiovascular-normal S1, S2, regular rate GI abdomen soft, nontender, nondistended Musculoskeletal-able to move all 4 extremities spontaneously Extremities-no pedal edema; numerous shallow cuts to bilateral upper extremities Objective Data Active Medications Acetaminophen (Acetaminophen 325 Mg Tablet) 650 mg PO Q6H PRN PRN Reason: Pain, Mild (Pain Scale 1-3) Last Admin: 08/07/21 08:56 Dose: 650 mg Documented By: ALFREDO Dextrose (Dextrose 50 % 25 Gm/50 Ml Syringe) 25 gm IVPUSH Q15M PRN; Protocol PRN Reason: per Hypoglycemia Standing Ord. Enoxaparin Sodium (Enoxaparin Sodium 40 Mg/0.4 Ml Syringe) 40 mg SUBCUT Q24H [facility] Last Admin: 08/06/21 16:13 Dose: 40 mg Documented By: TRACY Famotidine (Famotidine/Pf 20 Mg/2 Ml Vial) 20 mg IVPUSH BID [facility] Last Admin: 08/07/21 09:30 Dose: Not Given Documented By: ALFREDO Non-Admin Reason: Patient Refused Folic Acid (Folic Acid 1 Mg Tablet) 1 mg PO DAILY [facility] Last Admin: 08/07/21 08:53 Dose: 1 mg Documented By: ALFREDO Glucose (Glucose Gel 15 Gm Gel..Gram.) 15 gm PO Q15M PRN; Protocol PRN Reason: per Hypoglycemia Standing Ord. Lactated Ringer's (Lr) 1,000 mls @ 150 mls/hr IVCONT .Q6H40M [facility] Last Infusion: 08/07/21 15:04 Dose: 0 mls/hr Documented By: ALFREDO Insulin Human Lispro (Insulin Lispro 100 Unit/Ml 3 Ml Vial) 0 unit SUBCUT QIDACHS [facility]; Protocol Last Admin: 08/07/21 12:08 Dose: 6 unit Documented By: ALFREDO Multivitamins/Vitamin C (Multivitamin Tablet) 1 tab PO DAILY [facility] Last Admin: 08/07/21 08:53 Dose: 1 tab Documented By: ALFREDO Ondansetron HCl (Ondansetron Hcl 4 Mg/2 Ml Vial) 4 mg IVPUSH Q8H PRN PRN Reason: Nausea and Vomiting Pharmacy Consult (Consult Rx Perform Med Rec) 1 each MISCELLANE ONCE PRN PRN Reason: Consult order Pharmacy Consult (Consult Rx Etoh Phenob Im/Po) 1 each MISCELLANE ONCE PRN; Protocol PRN Reason: Consult order Phenobarbital (Phenobarbital 15 Mg Tablet) 45 mg PO BID [facility] Stop: 08/07/21 21:01 Last Admin: 08/07/21 08:50 Dose: 45 mg Documented By: ALFREDO Phenobarbital (Phenobarbital 15 Mg Tablet) 15 mg PO BID [facility] Stop: 08/09/21 21:01 Phenobarbital (Phenobarbital 15 Mg Tablet) 15 mg PO DAILY [facility] Stop: 08/11/21 09:01 Quetiapine Fumarate (Quetiapine Fumarate 300 Mg Tablet) 300 mg PO BEDTIME [facility] Last Admin: 08/07/21 00:23 Dose: 300 mg Documented By: EMMANUEL Sodium Chloride (0.9 % Sodium Chloride Flush 3 Ml Syringe) 3 ml IVFLUSH QSHIFT [facility] Last Admin: 08/07/21 08:57 Dose: 3 ml Documented By: ALFREDO Thiamine HCl (Thiamine Hcl 100 Mg Tablet) 100 mg PO DAILY [facility] Last Admin: 08/07/21 08:52 Dose: 100 mg Documented By: ALFREDO Labs CBC & Chem 7: 08/06/21 07:18 08/07/21 06:23 Labs: Laboratory Results - last 24 hr 08/06/21 08/07/2108/07/22 19:55 06:23 06:23 Anion Gap 12 Estim Creat Clear Calc 134.4 Estimated GFR > 60 POC Glucose 165 H Random Glucose 140 H Calcium 8.7 Lipase 115 H 08/07/21 08/07/21 07:02 10:46 Anion Gap Estim Creat Clear Calc Estimated GFR POC Glucose 138 H 275 H Random Glucose Calcium Lipase Assessment and Plan (1) Acute pancreatitis: Status: Acute Plan 51 year old man admitted with acute pancreatitis with hx of alcohol abuse and recent admission on 06/2021 for pancreatitis. He also had SI as his father recently Pancreatitis Hx of alcohol abuse Tolerating regular diet, DC IV fluid Lipase trending down SI Sitter Care team consult?pending Alcohol use Disorder Continue phenobarbatol protocol thiamine, folic acid, MVI Seen by care team Diabetes SS, ADA diet Mental health continue home medications? Hypertension continue home medications DVT prophylaxis with Lovenox Attending Full code continued hospitalization for tx of acute pancreatitis, BHN eval for SI Quality Stroke Does the patient have a stroke diagnosis?: No VTE Prior VTE?: No VTE Risk Level:: Medical - moderate - high VTE Device Contraindication: Treatment Not Indicated VTE Drug Contraindication: N/A - Med Ordered
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
--- NOTE | 2021-08-07 18:28 | PM.DS ---
DS: Providers Provider Date of Service: 08/07/21 Date of admission: 08/05/21 16:06 Date of discharge: 08/07/21 Primary care physician: Ruma Gilbert MD Consults: 08/05/21 11:20 BHN [Consult to Crisis] Stat Reason for consultation: SI/HI Has provider been notified: Yes 08/05/21 16:06 Consult to Care Team Routine Comment: Reason for consultation: alcohol abuse 08/07/21 12:46 Consult to Care Team Routine Comment: Reason for consultation: SI - medically cleared Attending physician on discharge: Reji Lala Discharging clinician: Margie Lai DS: Diagnosis Discharge Diagnosis (1) Acute pancreatitis: Status: Acute DS: Summary Hospital Course Hospital Course: From H&P on day of admission 51 year old man presenting to the ED with? Suicide ideation and abdominal pain.? He has a hx of alcohol induced pancreatitis with recent admission in June. He also had SI as his father recently .? He reported that he has not been eating very well and states that he does not drink every day but drinks about a case of beer on the weekends.? He has not been eating or drinking well and started to have abdominal pain with nausea.? He denied fever, chills, chest pain, shortness of breath, vomiting, diarrhea.? He does have cuts on his arms from him cutting himself. His lipase was 822, cocaine positive, abd CT showing pancreatitis slightly worse than in June. No fluid collection of pseudocyst. He was given ativan, morphine, zofran and started on phenobarbitol. He will be admitted for further management and treatment of acute pancreatitis. For pancreatitis secondary to alcohol use patient was treated with IV fluid and pain control as well as bowel rest. His diet was advanced, his pain improved and he is able to tolerate a full diet. His lipase trended down from 822-115 and he is currently requesting to return home. Patient was started on phenobarbital and vitamin supplementation for alcohol withdrawal. He currently is not displaying evidence of alcohol withdrawal. Patient was noted to report suicidal ideation and he was seen in consultation by N prior to discharge. At the time of their evaluation he declined any suicidal ideation and they did not feel that he met criteria for inpatient psychiatric treatment and he was cleared to return home. Time Spent with Patient Time attestation: Total time spent providing and/or coordinating discharge services: Discharge coordination time: Greater than 30 minutes Quality: Safe Use of Opioids Does Pt have an Active Cancer Diagnosis on the Problem List?: No Quality: Stroke Does the patient have a stroke diagnosis?: No Physical Exam Vital Signs: Vital Signs: Last Vital Signs Temp 98.9 F 08/07/21 15:30 Pulse 93 08/07/21 15:30 Resp 18 08/07/21 15:30 BP 158/92 H 08/07/21 15:30 Pulse Ox 98 08/07/21 15:30 O2 Del Method 08/07/21 15:30 BMI result Body Mass Index 29.9 Const: Other: Constitutional-sitting up in bed, frustrated, wants more pain medicine Awake, alert, appears to be in no acute distress Pulmonary-lungs clear to auscultation bilaterally Cardiovascular-normal S1, S2, regular rate GI abdomen soft, nontender, nondistended Musculoskeletal-able to move all 4 extremities spontaneously Extremities-no pedal edema; numerous shallow cuts to bilateral upper extremities DS: Data Data Completed and Pending Completed studies during hospitalization [Text1]: Procedures Detoxification Services for Substance Abuse Treatment (06/23/21) Labs on day of discharge: Laboratory Results - last 24 hr 08/06/21 08/07/21 08/07/21 19:55 06:23 06:23 Sodium 135 Potassium 3.5 Chloride 102 Carbon Dioxide 25 Anion Gap 12 BUN 5 L Creatinine 0.69 Estim Creat Clear Calc 134.4 Estimated GFR > 60 POC Glucose 165 H Random Glucose 140 H Calcium 8.7 Lipase 115 H 08/07/21 08/07/21 07:02 10:46 Sodium Potassium Chloride Carbon Dioxide Anion Gap BUN Creatinine Estim Creat Clear Calc Estimated GFR POC Glucose 138 H 275 H Random Glucose Calcium Lipase Discharge Plan Discharge Patient Disposition: Home, Self-Care Discharge Diagnosis: pancreatitis Referrals: Ruma Gilbert MD [Primary Care Provider] - 1 Week Discharge Medications: Continued Jardiance 25 mg tablet 25 mg PO DAILY Rx Instructions: Per patient and Salma (KLARISSA for Dr Gilbert) This replaces trulicty. patient is not on metformin anymore either folic acid 1 mg Tablet 1 mg PO DAILY Qty: 30 0RF thiamine mononitrate (vit B1) 100 mg Tablet 100 mg PO DAILY Qty: 30 0RF quetiapine 300 mg tablet 300 mg PO BEDTIME metoprolol succinate 50 mg tablet extended release 24 hr 50 mg PO DAILY trazodone 150 mg tablet 150 mg PO BEDTIME lisinopril 10 mg tablet 1 tab PO DAILY sertraline 100 mg tablet 1 tab PO DAILY ondansetron 4 mg tablet,disintegrating 4 mg PO Q8H PRN (Reason: nausea and vomiting) Qty: 20 0RF Discharge Orders: Discharge Order (Routine); Ordered 08/07/21 Ordered By: Margie Lai Activity on Discharge: As tolerated Stand Alone Forms: Patient Portal Discharge page Care Plan Goals: see below Health Concerns: pancreatitis secondary to alcohol use Plan of Treatment: do not drink alcohol call to schedule follow up appointment with PCP Assessment: see discharge summary Discharge Date/Time: 08/07/21 18:37
[2021-08-08 08:08] LABS: Glucose, Whole Blood 131 mg/dL (60-115)
== END 2021-08-07 18:37 | disposition home or self-care (01) | DRG 439 ==
LOC: HO.ED 16:01 → HO.EDOVER 16:12 → HO.IMC 20:05
PROVIDERS: Internal Medicine; Admitting Provider Nurse Practitioner Acute Care; Emergency Provider Emergency Medicine; PCP Internal Medicine; Responsible Provider Physician Assistant Medical; Visit Provider Hospitalist
DX: K85.20 Alcohol induced acute pancreatitis without necrosis or infection (principal); R45.851 Suicidal ideations; R45.850 Homicidal ideations; E11.9 Type 2 diabetes mellitus without complications; F10.10 Alcohol abuse, uncomplicated; F14.10 Cocaine abuse, uncomplicated; I10 Essential (primary) hypertension; Z91.52 Personal history of nonsuicidal self-harm; Z79.899 Other long term (current) drug therapy
CPT/HCPCS: 36415; 74176; 80048; 80076; 80307; 82077; 82947; 83615; 83690; 83735; 85025; 87635; 90471; 90715; 96361; 96372; 96374; 96375; 99284; 99285; J1650; J2270; J2405; J2560; Q0163

== ENCOUNTER 2021-11-18 19:17 | Emergency (ER) | payer OTHER, SELFPAY ==
[2021-11-18 20:17] VITALS: BP 110/74; PULSE 98; RESP 18; TEMP 37.2; O2SAT 99; BMI 28.8
[2021-11-18 20:43] LABS: MANUAL DIFF FLAG NO
[2021-11-18 20:46] LABS: Basophils Absolute Auto 0.1 X10*3/uL (0.0-0.2); Basophils Percent Auto 0.7 % (0-2); Eosinophils Absolute Auto 0.2 X10*3/uL (0.0-0.4); Eosinophils Percent Auto 1.9 % (0-4); Hematocrit 40.2 % (42.0-52.0); Imm Gran Abs Auto 0.05 X10*3/uL (0.00-0.03); Imm Gran Pct Auto 0.5 % (0.0-0.4); Lymphocytes Absolute Auto 2.3 X10*3/uL (1.2-4.9); Lymphocytes Percent Auto 22.4 % (20-40); Mean Corpuscular HGB Conc 34.8 g/dl (31.0-36.0); Mean Corpuscular Volume 91.8 fL (80.0-98.0); Mean Platelet Volume 9.2 fL (9.4-12.4); Monocytes Absolute Auto 0.8 X10*3/uL (0.1-1.2); Monocytes Percent Auto 7.9 % (2-11); Neutrophils Absolute Auto 6.9 x10*3/uL (2.0-8.3); Neutrophils Percent Auto 66.6 % (45-73); Platelet Count 205 X10*3/uL (160-400); Red Blood Count 4.38 X10*6/uL (4.60-5.80); Red Cell Distribution Width 11.7 % (11.0-16.0); White Blood Count 10.3 X10*3/uL (4.8-10.8)
[2021-11-18 21:03] LABS: Alanine Aminotransferase 26 U/L (0-40); Albumin Level 4.7 g/dL (3.5-5.0); Alkaline Phosphatase 90 U/L (39-117); Anion Gap 18 (12-20); Aspartate Amino Transferase 30 U/L (5-37); Bilirubin Total 0.6 mg/dL (0.0-1.0); Blood Urea Nitrogen 14 mg/dL (9-16); Calcium 9.7 mg/dL (8.4-10.2); Carbon Dioxide 25 mmol/L (22-29); Chloride 99 mmol/L (96-108); Estimated Glomerular Filt Rate > 60; Glucose Random 175 mg/dL (60-115); Sodium 138 mmol/L (135-145); Total Protein 7.5 g/dL (6.5-8.0)
--- OUTSIDE RECORDS SUMMARY | 2021-11-19 01:44 | XMS_ITS | Continuity of Care Document ---
:1970 Author Organization [facility] enter/[facility] Address Unavailable , Care Team Providers Name Role Phone Ruma Gilbert MD Primary Care Physician [phone] Encounter [facility] [place] Date(s): 06/17/21 - 07/27/21 [facility] Attending Physician: Ruma Gilbert MD Admitting Physician: Ruma Gilbert MD Allergies, Adverse Reactions, Alerts Substance Reaction Severity Status Viagra Priapism Active Immunizations Given and Recorded Vaccine Date Status Refusal Reason SARS-CoV-2 (COVID-19) mRNA BNT-162b2 vac 02/13/21 Given SARS-CoV-2 (COVID-19) mRNA BNT-162b2 vac 08/07/20 Recorde d SARS-CoV-2 (COVID-19) mRNA BNT-162b2 vac 07/17/20 Recorde d Influenza Virus Vaccine (oldterm) 10/18/20 Recorded influenza virus vaccine, inactivated 02/27/19 Given influenza virus vaccine, inactivated1 12/05/10 Given influenza virus vaccine, inactivated2 03/21/10 Given influenza virus vaccine, inactivated3 12/09/01 Given pneumococcal 23-valent vaccine 11/11/18 Recorded pneumococcal 23-valent vaccine4 01/22/14 Given tetanus/diphtheria/pertussis, acel(Tdap)5 01/22/14 Given hepatitis B adult vaccine6 03/21/10 Given Hepatitis B Vaccine (old term) 11/21/09 Given Hepatitis B Vaccine (old term)7 10/22/09 Given Hepatitis B Vaccine (old term)8 05/16/03 Given Hepatitis B Vaccine (old term)9 01/18/02 Given Hepatitis B Vaccine (old term)10 12/21/01 Given Hepatitis A Adult [id number] 05/16/03 Given Hepatitis A Adult [id number] 12/21/01 Given Varicella Virus Vaccine 01/26/03 Given 1Admin Note: VIS GIVEN: 09/09/20102Admin Note: VIS 09/24/09 [id number] Note: ADMINISTERED BY [id number] Comment: [01/22/2014] Ordered by [id number] Comment: [01/22/2014] Ordered by [id number] Note: ADM. VIS 06/21 [id number] Note: VIS 08/21 [id number] Note: ADMINISTERED BY [id number] Note: ADMINISTERED BY [id number] Note: ADMINISTERED BY [id number] Note: Administered by [id number] Note: Administered by R.N Medications Alcohol Pads See Instructions, # 50 each, Refills 11, Tot. Refills 11, Maintenance, T2DM check once a day, 11/06/19 13:36:00 EDT, Compound, 170.18, cm, 08/29/19 15:36:00 EDT, Height, 95, kg, 03/27/19 10:22:00 EST, Dry Weight Start Date: 11/06/19 Status: Orderedammonium lactate 12% topical cream 1 application, Topically, 2 times a day, # 280 Gm, 0 Refills, Maintenance, 08/29/19 16:28:00 EDT, Cream, [facility]/pharmacy #[id number], 1 application Topically 2 times a day, 170.18, cm, 08/29/19 15:36:00 EDT, Height, 95, kg, 03/27/19 10:22:00 EST, Dry Weight Start Date: 08/29/19 Status: OrderedCentrum Silver By Mouth, Daily, 0 Refills, Maintenance, 01/24/21 11:45:00 EST, Partial fill upon patient request ifthe prescription is for a schedule II opioid drug. Start Date: 01/24/21 Status: OrderedCholecalciferol By Mouth, Daily, 0 Refills, Maintenance, 01/24/21 11:46:00 EST, Partial fill upon patient request ifthe prescription is for a schedule II opioid drug. Start Date: 01/24/21 Status: Orderedfolic acid 1 mg oral tablet 1, tablet, By Mouth, Daily, # 90 tablet, Refills 1, Route to Pharmacy Electronically, [facility] STORE [id number], 170.18, cm, 01/24/21 10:33:00 EST, Height Start Date: 06/19/21 Status: OrderedFreestyle Lite Lancets See Instructions, # 50 each, Refills 11, Tot. Refills 11, Maintenance, T2DM check once a day, 02/27/19 8:56:00 EST, Compound, 170.18, cm, 02/27/19 8:16:00 EST, Height Start Date: 02/27/19 Status: OrderedFreestyle Lite Monitor See Instructions, # 1 each, Maintenance, T2DM check once a day, 04/16/20 18:31:00 EST, Compound, 170.18, cm, 04/16/20 15:13:00 EST, Height, 95, kg, 03/27/19 10:22:00 EST, Dry Weight Start Date: 04/16/20 Status: OrderedFreestyle Lite Test Strips See Instructions, # 50 each, Refills 11, Tot. Refills 11, Maintenance, T2DM check once a day, 02/27/19 8:56:00 EST, Compound, 170.18, cm, 02/27/19 8:16:00 EST, Height Start Date: 02/27/19 Status: OrderedJardiance 25 mg oral tablet 1 tablet, By Mouth, Daily in AM, # 30 tablet, 5 Refills, [facility] [id number], 170.18, cm, 01/24/21 10:33:00 EST, Height, 95, kg, 03/27/19 10:22:00 EST, Dry Weight Start Date: 02/17/21 Status: Orderedlisinopril 10 mg oral tablet 1, tablet, By Mouth, Daily, # 90 tablet, Refills 1, Tot. Refills 1, Maintenance, 03/18/21 9:22:00 EST, Route to Pharmacy Electronically, [facility]/pharmacy #[id number], 170.18, cm, 01/24/21 10:33:00 EST, Height, 95, kg, 03/27/19 10:22:00 EST, Dry Weight Start Date: 03/18/21 Status: OrderedMetoprolol Succinate ER 50 mg oral tablet, extended release 1 tablet, By Mouth, Daily, # 30 tablet, 11 Refills, Maintenance, 01/24/21 11:43:00 EST, [facility]/pharmacy#[id number], 170.18, cm, 01/24/21 10:33:00 EST, Height, 95, kg, 03/27/19 10:22:00 EST, Dry Weight Start Date: 01/24/21 Stop Date: 01/19/22 Status: Orderedomeprazole 20 mg oral enteric coated capsule 0 Refills, Maintenance, 04/16/20 10:59:00 EST, Partial fill upon patient request if the prescriptionis for a schedule II opioid drug. Start Date: 04/16/20 Status: OrderedQUEtiapine 300 mg oral tablet 1 tablet, By Mouth, Daily at bedtime, # 30 tablet, 2 Refills, [id number], 170.18, cm, 01/24/21 10:33:00 EST, Height Start Date: 05/13/21 Status: Orderedsertraline 100 mg oral tablet 1 tablet = 100 mg, By Mouth, Daily, # 30 tablet, 11 Refills, Maintenance, 04/03/21 9:14:00 EST, Tablet, [facility]/pharmacy #[id number], Partial fill upon patient request if the prescription is for a schedule II opioid drug., 170.18, cm, 01/24/21 10:33:00 EST, Height Start Date: 04/03/21 Status: Orderedthiamine 100 mg oral tablet 100 mg, 1, tablet, By Mouth, Daily, for 90 days, # 90 tablet, Refills 3, Tot. Refills 3, Acute 01/19/22 11:46:00 EST, 01/24/21 11:46:00 EST, Route to Pharmacy Electronically, [facility]/pharmacy #[id number], Partial fill upon patient request if the prescription is... Start Date: 01/24/21 Stop Date: 01/19/22 Status: OrderedtraZODone 150 mg oral tablet 1 tablet, By Mouth, Daily at bedtime, # 30 tablet, 5 Refills, 06/06/21 11:58:00 EDT, [facility]/pharmacy #[id number], 170.18, cm, 01/24/21 10:33:00 EST, Height Start Date: 06/06/21 Status: Ordered Problem List Condition Effective Dates Status Health Status Informant [D]Abnormal weight gain(Confirmed) 05/01/09 Active Avascular necrosis of hip(Confirmed) Active Chronic depression(Confirmed) 05/01/08 Active Cocaine use(Confirmed) Active Pancreatic lesion(Confirmed) Active DISH (diffuse idiopathic skeletal Active hyperostosis)(Confirmed) Dyslipidemia(Confirmed) Active H/O bilateral hip Active replacements(Confirmed) HTN (hypertension)(Confirmed) Active Hypertriglyceridemia(Confirmed) Active Liver function tests 05/01/08 Active abnormal(Confirmed) Obesity(Confirmed) Active Pancreatitis(Confirmed) Active PTSD - Post-traumatic stress 05/01/08 Active disorder(Confirmed) Suspected alcohol abuse(Confirmed) 05/01/09 Active Type 2 diabetes mellitus(Confirmed) Active Social History Social History Type Response Smoking Status Never (less than 100 in life time); Never entered on: 04/16/20 Sex
--- OUTSIDE RECORDS SUMMARY | 2021-11-19 01:44 | XMS_ITS | Continuity of Care Document ---
:1970 Author Organization [facility] Address [address] [place] [address]- Care Team Providers Name Role Phone Ruma Gilbert MD Primary Care Physician Encounter [facility] [place] ACCT R [id number] Date(s): 04/28/19 - 05/08/19 [facility]/[address] [address]- [facility] Attending Physician: Nadja Matthews Admitting Physician: AdmNadja kelly Referring Physician: AdmtrNadja Allergies, Adverse Reactions, Alerts Substance Reaction Severity Status Viagra Priapism Active Immunizations Given and Recorded Vaccine Date Status Refusal Reason influenza virus vaccine, inactivated 02/27/19 Given influenza virus vaccine, inactivated1 12/05/10 Given influenza virus vaccine, inactivated2 03/21/10 Given influenza virus vaccine, inactivated3 12/09/01 Given pneumococcal 23-valent vaccine4 01/22/14 Given tetanus/diphtheria/pertussis, acel(Tdap)5 01/22/14 Given hepatitis B adult vaccine6 03/21/10 Given Hepatitis B Vaccine (old term) 11/21/09 Given Hepatitis B Vaccine (old term)7 10/22/09 Given Hepatitis B Vaccine (old term)8 05/16/03 Given Hepatitis B Vaccine (old term)9 01/18/02 Given Hepatitis B Vaccine (old term)10 12/21/01 Given Hepatitis A Adult [id number] 05/16/03 Given Hepatitis A Adult [id number] 12/21/01 Given Varicella Virus Vaccine 01/26/03 Given 1Admin Note: VIS GIVEN: 09/09/20102Admin Note: VIS 09/24/09 [id number] Note: ADMINISTERED BY [id number] Comment: [01/22/2014] Ordered by Dakotah Comment: [01/22/2014] Ordered by Shanta Note: ADM. VIS 06/21 [id number] Note: VIS 08/21 [id number] Note: ADMINISTERED BY [id number] Note: ADMINISTERED BY [id number] Note: ADMINISTERED BY [id number] Note: Administered by [id number] Note: Administered by R.N Medications Alcohol Pads See Instructions, # 50 each, Refills 11, Tot. Refills 11, Maintenance, T2DM check once a day, 02/27/19 8:56:00 EST, Compound, 170.18, cm, 02/27/19 8:16:00 EST, Height Start Date: 02/27/19 Status: Orderedammonium lactate 12% topical cream 1 application, Topically, 2 times a day, # 280 Gm, 0 Refills, Maintenance, 02/27/19 8:58:00 EST, Cream, [id number], 1 application Topically 2 times a day, 170.18, cm, 02/27/19 8:16:00 EST, Height Start Date: 02/27/19 Status: OrderedFreestyle Lite Lancets See Instructions, # 50 each, Refills 11, Tot. Refills 11, Maintenance, T2DM check once a day, 02/27/19 8:56:00 EST, Compound, 170.18, cm, 02/27/19 8:16:00 EST, Height Start Date: 02/27/19 Status: OrderedFreestyle Lite Monitor See Instructions, # 1 each, Maintenance, T2DM check once a day, 02/27/19 8:56:00 EST, Compound, 170.18, cm, 02/27/19 8:16:00 EST, Height Start Date: 02/27/19 Status: OrderedFreestyle Lite Test Strips See Instructions, # 50 each, Refills 11, Tot. Refills 11, Maintenance, T2DM check once a day, 02/27/19 8:56:00 EST, Compound, 170.18, cm, 02/27/19 8:16:00 EST, Height Start Date: 02/27/19 Status: Orderedlisinopril 10 mg oral tablet 10 mg, 1, tablet, By Mouth, Daily, # 90 tablet, Refills 0, Tot. Refills 0, Maintenance, 03/28/19 8:29:00 EST, Route to Pharmacy Electronically, [facility]/pharmacy #[id number], 170.18, cm, 03/27/19 10:22:00 EST, Height, 95, kg, 03/27/19 10:22:00 EST, Dry Weight Start Date: 03/28/19 Status: OrderedmetFORMIN 1000 mg oral tablet, extended release 1 tablet = 1,000 mg, By Mouth, Daily, # 90 tablet, 3 Refills, Maintenance, 03/28/19 8:29:00 EST, ER Tablet, [facility]/pharmacy #[id number], Please stop immediate release metormin, 170.18, cm, 03/27/19 10:22:00 EST, Height, 95, kg, 03/27/19 10:22:00 EST, Dry Weight Start Date: 03/28/19 Stop Date: 03/22/20 Status: OrderedMetoprolol Succinate ER 50 mg oral tablet, extended release See Instructions, TAKE 1 TABLET BY MOUTH EVERY DAY, # 30 tablet, 4 Refills, Maintenance, 05/08/19 16:14:00 EDT, [facility]/pharmacy #[id number], 170.18, cm, 03/27/19 10:22:00 EST, Height, 95, kg, 03/27/19 10:22:00 EST, Dry Weight Start Date: 05/08/19 Status: OrderedQUEtiapine 300 mg oral tablet 1 tablet = 300 mg, By Mouth, Daily at bedtime, # 30 tablet, 5 Refills, Soft Stop, 02/03/19 8:08:00 EST, [facility]/pharmacy #[id number], 170.18, cm, 10/13/18 9:17:00 EDT, Height Start Date: 02/03/19 Stop Date: 08/02/19 Status: Orderedsertraline 100 mg oral tablet 1 tablet = 100 mg, By Mouth, Daily, # 90 tablet, 2 Refills, Maintenance, 10/13/18 10:31:09 EDT, Tablet Start Date: 10/13/18 Status: OrderedtraZODone 150 mg oral tablet 1 tablet = 150 mg, By Mouth, Daily at bedtime, # 30 tablet, 5 Refills, Maintenance, 02/23/19 14:51:00 EST, Tablet, [facility]/pharmacy #[id number], 170.18, cm, 10/13/18 9:17:00 EDT, Height Start Date: 02/23/19 Stop Date: 08/22/19 Status: Ordered Problem List Condition Effective Dates Status Health Status Informant [D]Abnormal weight gain(Confirmed) 05/01/09 Active Avascular necrosis of hip(Confirmed) Active Chronic depression(Confirmed) 05/01/08 Active Cocaine use(Confirmed) Active DISH (diffuse idiopathic skeletal Active hyperostosis)(Confirmed) Dyslipidemia(Confirmed) Active H/O bilateral hip Active replacements(Confirmed) HTN (hypertension)(Confirmed) Active Hypertriglyceridemia(Confirmed) Active Liver function tests 05/01/08 Active abnormal(Confirmed) Obesity(Confirmed) Active PTSD - Post-traumatic stress 05/01/08 Active disorder(Confirmed) Suspected alcohol abuse(Confirmed) 05/01/09 Active Type 2 diabetes mellitus(Confirmed) Active Social History Social History Type Response Smoking Status Never entered on: 05/16/18 Sex
--- OUTSIDE RECORDS SUMMARY | 2021-11-19 01:44 | XMS_ITS | Continuity of Care Document ---
:1970 Author Organization [facility] enter/[facility] Address [address] [place] [address]- Care Team Providers Name Role Phone Ruma Gilbert MD Primary Care Physician Encounter [facility] [place] Date(s): 08/31/19 - 11/12/19 [facility]/[address] [address]- [facility] Attending Physician: Ruma Gilbert MD Admitting Physician: [...] (old term)10 12/21/01 Given Hepatitis A Adult [id number] 05/16/03 Given Hepatitis A Adult [id number] 12/21/01 Given Varicella Virus Vaccine 01/26/03 Given 1Admin Note: VIS GIVEN: 09/09/20102Admin Note: VIS 09/24/09 [id number] Note: ADMINISTERED BY R.N.4Result Comment: [01/22/2014] Ordered by [id number] Comment: [01/22/2014] Ordered by [id number] Note: ADM. VIS 06/21 [id number] Note: VIS 08/21 [id number] Note: ADMINISTERED BY [id number] Note: ADMINISTERED BY [id number] Note: ADMINISTERED BY [id number] Note: Administered by LadonnaS84Mghxm Note: Administered by RRhea Medications Alcohol Pads See Instructions, # 50 each, Refills 11, Tot. Refills 11, Maintenance, T2DM check once a day, 11/06/19 13:36:00 EDT, Compound, 170.18, cm, 08/29/19 15:36:00 EDT, Height, 95, kg, 03/27/19 10:22:00 EST, Dry Weight Start Date: 11/06/19 Status: Orderedammonium lactate 12% topical cream 1 application, Topically, 2 times a day, # 280 Gm, 0 Refills, Maintenance, 08/29/19 16:28:00 EDT, Cream, [id number], 1 application Topically 2 times a day, 170.18, cm, 08/29/19 15:36:00 EDT, Height, 95, kg, 03/27/19 10:22:00 EST, Dry Weight Start Date: 08/29/19 Status: OrderedFreestyle Lite Lancets See Instructions, # [...] tablet, Refills 1, Tot. Refills 1, Maintenance, 06/19/19 17:03:00 EDT, Route to Pharmacy Electronically, [facility]/pharmacy #[id number], 170.18, cm, 03/27/19 10:22:00 EST, Height, 95, kg, 03/27/19 10:22:00 EST, Dry Weight Start Date: 06/19/19 Status: OrderedMetoprolol Succinate ER 50 mg oral tablet, extended release See Instructions, TAKE 1 TABLET BY MOUTH EVERY DAY, # 30 tablet, 4 Refills, Maintenance, 05/08/19 16:14:00 EDT, [facility]/pharmacy #207, 170.18, cm, 03/27/19 10:22:00 EST, Height, 95, kg, 03/27/19 10:22:00 EST, Dry Weight Start Date: 05/08/19 Status: OrderedQUEtiapine 300 mg oral tablet 1 tablet = 300 mg, By Mouth, Daily at bedtime, # 30 tablet, 5 Refills, Soft Stop, 02/03/19 8:08:00 EST, [facility]/pharmacy #207, 170.18, cm, 10/13/18 9:17:00 EDT, Height Start Date: 02/03/19 Stop Date: 08/02/19 Status: Orderedsertraline 50 mg oral tablet 1 tablet = 50 mg, By Mouth, Daily, # 90 tablet, 0 Refills, Maintenance, 11/06/19 13:35:00 EDT, Tablet, [facility]/pharmacy #[id number], 170.18, cm, 08/29/19 15:36:00 EDT, Height, 95, kg, 03/27/19 10:22:00 EST, Dry Weight Start Date: 11/06/19 Status: OrderedtraZODone 150 mg oral tablet 1 tablet = 150 mg, By Mouth, Daily at bedtime, # 30 tablet, 4 Refills, Maintenance, 08/22/19 15:17:00 EDT, Tablet, [facility]/pharmacy #[id number], duplicate rx. original sent 07/27/19. remaining refills sent., 170.18, cm, 03/27/19 10:22:00 EST, Height, 95, kg, 02/... Start Date: 08/22/19 Stop Date: 01/19/20 Status: OrderedTrulicity Pen 0.75 mg/0.5 mL subcutaneous solution = 0.75 mg, Subcutaneous Infusion, Every 7 days, # 4 each, 2 Refills, Maintenance, 10/24/19 10:55:00 EDT, [id number], 170.18, cm, 08/29/19 15:36:00 EDT, Height, 95, kg, 03/27/19 10:22:00 EST, Dry Weight Start Date: 10/24/19 Stop Date: 01/22/20 Status: Ordered Problem List Condition Effective Dates [...] 100 in life time); Never entered on: 08/29/19 Sex
--- OUTSIDE RECORDS SUMMARY | 2021-11-19 01:44 | XMS_ITS | Continuity of Care Document ---
:1970 Author Organization [facility] Address [address] [place] [address]- Care Team Providers Name Role Phone Ruma Gilbert MD Primary Care Physician Encounter [facility] [place] Date(s): 06/26/20 - 09/12/20 [facility]/[address] [address]- Attending Physician: Ruma Gilbert MD Admitting Physician: Ruma Gilbert MD Referring Physician: Ruma Gilbert MD Allergies, Adverse Reactions, Alerts Substance Reaction Severity Status Viagra Priapism Active Immunizations Given and Recorded Vaccine Date Status Refusal Reason SARS-CoV-2 (COVID-19) mRNA BNT-162b2 vac 07/17/20 Recorde d influenza virus vaccine, inactivated 02/27/19 Given influenza [...] (old term)10 12/21/01 Given Hepatitis A Adult [id number] 05/16/03 Given Hepatitis A Adult [id number] 12/21/01 Given Varicella Virus Vaccine 12/12/03 Given 1Admin Note: VIS GIVEN: 09/09/20102Admin Note: VIS 09/24/09 [id number] Note: ADMINISTERED BY [id number] Comment: [01/22/2014] Ordered by [id number] Comment: [01/22/2014] Ordered by [id number] Note: ADM. VIS 06/21 [id number] Note: VIS 08/21 [id number] Note: ADMINISTERED BY [id number] Note: ADMINISTERED BY [id number] Note: ADMINISTERED BY [id number] Note: Administered by [id number] Note: Administered by R.N Medications Alcohol Pads [...] 0 Refills, Maintenance, 08/29/19 16:28:00 EDT, Cream, [facility]/pharmacy #[id number], 1 application Topically 2 times a day, 170.18, cm, 08/29/19 15:36:00 EDT, Height, 95, kg, 03/27/19 10:22:00 EST, Dry Weight Start Date: 08/29/19 Status: Orderedempagliflozin 25 mg oral tablet 1 tablet = 25 mg, By Mouth, Daily in AM, # 30 tablet, 0 Refills, Maintenance, 09/09/20 18:08:00 EDT,Tablet, [facility]/pharmacy #[id number], Partial fill upon patient request if the prescription is for a schedule II opioid drug. 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 Start Date: 09/09/20 Status: Orderedfolic acid 1 mg oral tablet 1 mg, 1, tablet, By Mouth, Daily, # 90 tablet, Refills 3, Tot. Refills 3, Maintenance, 06/17/20 8:48:00 EDT, Route to Pharmacy Electronically, [facility]/pharmacy #[id number], Partial fill upon patient request if the prescription is for a schedule II opioid drug.,... Start Date: 06/17/20 Stop Date: 06/12/21 Status: Orderedfolic acid 1 mg oral tablet 1 mg, 1, tablet, By Mouth, Daily, # 90 tablet, Refills 3, Tot. Refills 3, Maintenance, 06/17/20 8:50:00 EDT, Route to Pharmacy Electronically, [facility]/pharmacy #[id number], Partial fill upon patient request if the prescription is for a schedule II opioid drug.,... Start Date: 06/17/20 Stop Date: 06/12/21 Status: OrderedFreestyle Lite Lancets See Instructions, # [...] 8:16:00 EST, Height Start Date: 02/27/19 Status: Orderedibuprofen 800 mg oral tablet 1, tablet, By Mouth, 3 times a day, PRN, # 75 tablet, Refills 0, Tot. Refills 0, Acute, NEEDED FOR PAIN, 12/06/19 15:17:00 EDT, Route to Pharmacy Electronically, [facility] STORE [id number], 170.18, cm, 08/29/19 15:36:00 EDT, Height, 95, kg, 03/27/19 10:22:00... Start Date: 12/06/19 Status: Orderedlisinopril 10 mg oral tablet 10 mg, 1, tablet, By Mouth, Daily, # 90 tablet, Refills 1, Tot. Refills 1, Maintenance, 06/17/20 8:47:00 EDT, Route to Pharmacy Electronically, [facility]/pharmacy #[id number], 170.18, cm, 04/16/20 15:13:00 EST, Height, 95, kg, 03/27/19 10:22:00 EST, Dry Weight Start Date: 06/17/20 Status: OrderedMetoprolol Succinate ER 50 mg oral tablet, extended release 1 tablet, By Mouth, Daily, # 30 tablet, 4 Refills, Maintenance, 05/20/20 12:00:00 EDT, [facility] STORE [id number], 170.18, cm, 04/16/20 15:13:00 EST, Height, 95, kg, 03/27/19 10:22:00 EST, Dry Weight Start Date: 05/20/20 Status: Orderedomeprazole 20 mg oral enteric coated capsule 0 Refills, Maintenance, 04/16/20 10:59:00 EST, Partial fill upon patient request if the prescriptionis for a schedule II opioid drug. Start Date: 04/16/20 Status: OrderedQUEtiapine 300 mg oral tablet 1 tablet = 300 mg, By Mouth, Daily at bedtime, # 90 tablet, 3 Refills, Soft Stop, 11/23/19 17:21:00 EDT, [facility]/pharmacy #[id number], 170.18, cm, 08/29/19 15:36:00 EDT, Height, 95, kg, 03/27/19 10:22:00 EST, Dry Weight Start Date: 11/23/19 Status: Orderedsertraline 100 mg oral tablet 1 tablet = 100 mg, By Mouth, Daily, # 90 tablet, 1 Refills, Maintenance, 06/17/20 8:47:00 EDT, Tablet, [facility]/pharmacy #[id number], Partial fill upon patient request if the prescription is for a schedule II opioid drug., 170.18, cm, 04/16/20 15:13:00 EST, Heig... Start Date: 06/17/20 Status: OrderedtraZODone 150 mg oral tablet 1 tablet = 150 mg, By Mouth, Daily at bedtime, # 30 tablet, 4 Refills, Maintenance, 06/17/20 8:47:00EDT, Tablet, [facility]/pharmacy #[id number], duplicate rx. original sent 07/27/19. remaining refills sent., 170.18, cm, 04/16/20 15:13:00 EST, Height, 95, kg, 03/18... Start Date: 06/17/20 Stop Date: 11/14/20 Status: Ordered Problem List Condition Effective Dates [...]
--- OUTSIDE RECORDS SUMMARY | 2021-11-19 01:44 | XMS_ITS | Continuity of Care Document ---
:1970 Author Organization [facility] enter/[facility] Address Unavailable , Care Team Providers Name Role Phone Ruma Gilbert MD Primary Care Physician [phone] Encounter [facility] Date(s): 03/31/21 - 04/30/21 [facility] Allergies, Adverse Reactions, Alerts Substance Reaction Severity [...] (old term)10 12/21/01 Given Hepatitis A Adult [id number] 05/16/03 Given Hepatitis A Adult Porkpvs07 12/21/01 Given Varicella Virus Vaccine 01/26/03 Given 1Admin Note: VIS GIVEN: 09/09/20102Admin Note: VIS 09/24/09 [id number] Note: ADMINISTERED BY [id number] Comment: [01/22/2014] Ordered by [id number] Comment: [01/22/2014] Ordered by Shanta Note: ADM. VIS 06/21 [id number] Note: VIS 08/21 [id number] Note: ADMINISTERED BY [id number] Note: ADMINISTERED BY [id number] Note: ADMINISTERED BY [id number] Note: Administered by [id number] Note: Administered by Amalia Medications Alcohol Pads See Instructions, # 50 each, Refills 11, Tot. Refills 11, Maintenance, T2DM check once a day, 11/06/19 13:36:00 EDT, Compound, 170.18, cm, 08/29/19 15:36:00 EDT, Height, 95, kg, 03/27/19 10:22:00 EST, Dry Weight Start Date: 11/06/19 Status: Orderedammonium lactate 12% topical cream 1 application, Topically, 2 times a day, # 280 Gm, 0 Refills, Maintenance, 08/29/19 16:28:00 EDT, Cream, [facility]/pharmacy #[id number], 1 application Topically 2 times [...] 06/17/20 8:50:00 EDT, Route to Pharmacy Electronically, [facility]/pharmacy #[id number], Partial fill upon patient request [...] in AM, # 30 tablet, 5 Refills, [facility] STORE [id number], 170.18, cm, 01/24/21 10:33:00 EST, Height, 95, kg, 03/27/19 10:22:00 EST, Dry Weight Start Date: 02/17/21 Status: Orderedlisinopril 10 mg oral tablet 1, tablet, By Mouth, Daily, # 90 tablet, Refills 1, Tot. Refills 1, Maintenance, 03/18/21 9:22:00 EST, Route to Pharmacy Electronically, [facility]/pharmacy #[id number], 170.18, cm, 01/24/21 10:33:00 EST, Height, 95, kg, 03/27/19 10:22:00 EST, Dry Weight Start Date: 03/18/21 Status: OrderedMetoprolol Succinate ER 50 mg oral tablet, extended release 1 tablet, By Mouth, Daily, # 30 tablet, 11 Refills, Maintenance, 01/24/21 11:43:00 EST, [facility]/pharmacy#[id number], 170.18, cm, 01/24/21 10:33:00 EST, Height, 95, [...] Mouth, Daily at bedtime, # 30 tablet, 1 Refills, Maintenance, 04/07/21 16:38:00 EST, [facility]/pharmacy #[id number], 170.18, cm, 01/24/21 10:33:00 EST, Height Start Date: 04/07/21 Stop Date: 06/06/21 Status: Orderedsertraline 100 mg oral tablet 1 tablet = 100 mg, By Mouth, Daily, # 30 tablet, 11 Refills, Maintenance, 04/03/21 9:14:00 EST, Tablet, [facility]/pharmacy #[id number], Partial fill upon patient request if the prescription is for a schedule II opioid drug., 170.18, cm, 01/24/21 10:33:00 EST, Height Start Date: 04/03/21 Status: Orderedthiamine 100 mg oral tablet 100 mg, 1, tablet, By Mouth, Daily, for 90 days, # 90 tablet, Refills 3, Tot. Refills 3, Acute 01/19/22 11:46:00 EST, 01/24/21 11:46:00 EST, Route to Pharmacy Electronically, [facility]/pharmacy #[id number], Partial fill upon patient request if the prescription is... Start Date: 01/24/21 Stop Date: 01/19/22 Status: OrderedtraZODone 150 mg oral tablet 1 tablet, By Mouth, Daily at bedtime, # 30 tablet, 5 Refills, [facility] STORE [address]167, 170.18, cm, 06/17/20 9:11:00 EDT, Height, 95, kg, 03/27/19 10:22:00 EST, Dry Weight Start Date: 11/04/20 Status: Ordered Problem List Condition Effective Dates [...]
--- OUTSIDE RECORDS SUMMARY | 2021-11-19 01:44 | XMS_ITS | Continuity of Care Document ---
:1970 Author Organization [facility] Address [address] [place] [address]- Care Team Providers Name Role Phone Ruma Gilbert MD Primary Care Physician Encounter [facility] Date(s): 07/01/20 - 07/31/20 [facility]/[address] [address]- Encounter Diagnosis Pancreatic lesion (Discharge Diagnosis) - 03/24/20 Attending Physician: Nadja Matthews Admitting Physician: Nadja Matthews Referring Physician: Nadja Matthews Allergies, Adverse Reactions, Alerts Substance Reaction Severity [...] (old term)10 12/21/01 Given Hepatitis A Adult [id number] 05/16/03 Given Hepatitis A Adult Vtlilfv00 12/21/01 Given Varicella Virus Vaccine 01/26/03 Given 1Admin Note: VIS GIVEN: 09/09/20102Admin Note: VIS 09/24/09 [id number] Note: ADMINISTERED BY R.N.4Result Comment: [01/22/2014] Ordered by [id number] Comment: [01/22/2014] Ordered by [id number] Note: ADM. VIS 06/21 [id number] Note: VIS 08/21 [id number] Note: ADMINISTERED BY [id number] Note: ADMINISTERED BY [id number] Note: ADMINISTERED BY [id number] Note: Administered by [id number] Note: Administered by R.N Medications Alcohol Pads [...] 0 Refills, Maintenance, 08/29/19 16:28:00 EDT, Cream, [facility]/pharmacy #[id number], 1 application Topically 2 times a day, 170.18, cm, 08/29/19 15:36:00 EDT, Height, 95, kg, 03/27/19 10:22:00 EST, Dry Weight Start Date: 08/29/19 Status: Orderedempagliflozin 25 mg oral tablet 1 tablet = 25 mg, By Mouth, Daily in AM, # 30 tablet, 3 Refills, Maintenance, 04/16/20 18:31:00 EST,Tablet, [facility]/pharmacy #[id number], Partial fill upon patient request if the prescription is for a schedule II opioid drug., 170.18, cm, 04/16/20 15:13:00 EST... Start Date: 04/16/20 Status: Orderedfolic acid 1 mg oral tablet 1 mg, 1, tablet, By Mouth, Daily, # 90 tablet, Refills 3, Tot. Refills 3, Maintenance, 06/17/20 8:48:00 EDT, Route to Pharmacy Electronically, [facility]/pharmacy #[id number], Partial fill upon patient request if the prescription is for a schedule II opioid drug.,... Start Date: 06/17/20 Stop Date: 06/12/21 Status: Orderedfolic acid 1 mg oral tablet 1 mg, 1, tablet, By Mouth, Daily, # 90 tablet, Refills 3, Tot. Refills 3, Maintenance, 06/17/20 8:50:00 EDT, Route to Pharmacy Electronically, [facility]/pharmacy #[id number], Partial fill upon patient request if the [...] 12/06/19 15:17:00 EDT, Route to Pharmacy Electronically, [facility] STORE [id number], 170.18, cm, 08/29/19 15:36:00 EDT, Height, 95, kg, 03/27/19 10:22:00... Start Date: 12/06/19 Status: Orderedlisinopril 10 mg oral tablet 10 mg, 1, tablet, By Mouth, Daily, # 90 tablet, Refills 1, Tot. Refills 1, Maintenance, 06/17/20 8:47:00 EDT, Route to Pharmacy Electronically, [facility]/pharmacy #[id number], 170.18, cm, 04/16/20 15:13:00 EST, Height, 95, kg, 03/27/19 10:22:00 EST, Dry Weight Start Date: 06/17/20 Status: OrderedMetoprolol Succinate ER 50 mg oral tablet, extended release 1 tablet, By Mouth, Daily, # 30 tablet, 4 Refills, Maintenance, 05/20/20 12:00:00 EDT, [facility] STORE [id number], 170.18, cm, 04/16/20 15:13:00 EST, Height, 95, [...] 3 Refills, Soft Stop, 11/23/19 17:21:00 EDT, [facility]/pharmacy #[id number], 170.18, cm, 08/29/19 15:36:00 EDT, Height, 95, kg, 03/27/19 10:22:00 EST, Dry Weight Start Date: 11/23/19 Status: Orderedsertraline 100 mg oral tablet 1 tablet = 100 mg, By Mouth, Daily, # 90 tablet, 1 Refills, Maintenance, 06/17/20 8:47:00 EDT, Tablet, [facility]/pharmacy #[id number], Partial fill upon patient request if the prescription is for a schedule II opioid drug., 170.18, cm, 04/16/20 15:13:00 EST, Heig... Start Date: 06/17/20 Status: OrderedtraZODone 150 mg oral tablet 1 tablet = 150 mg, By Mouth, Daily at bedtime, # 30 tablet, 4 Refills, Maintenance, 06/17/20 8:47:00EDT, Tablet, [facility]/pharmacy #[id number], duplicate rx. original sent 07/27/19. remaining [...] 05/01/09 Active Type 2 diabetes mellitus(Confirmed) Active Diagnosis Diagnosis Type Effective Dates Health Clinical Infor mant Status Service Pancreatic lesion Discharge 03/24/20 Diagnosis Social History Social History Type Response Smoking Status Never (less than 100 in life time); Never entered on: 04/16/20 Sex
--- OUTSIDE RECORDS SUMMARY | 2021-11-19 01:44 | XMS_ITS | Continuity of Care Document ---
:1970 Author Organization [facility] Address Unavailable , Care Team Providers Name Role Phone Ruma Gilbert MD Primary Care Physician Encounter [facility] Date(s): 10/17/20 - 11/16/20 [facility] Allergies, Adverse Reactions, Alerts Substance Reaction Severity Status Viagra Priapism Active Immunizations Given and Recorded Vaccine Date Status Refusal Reason Influenza Virus Vaccine (oldterm) 10/18/20 Recorded SARS-CoV-2 (COVID-19) mRNA BNT-162b2 vac 07/17/20 Recorde [...] (old term)10 12/21/01 Given Hepatitis A Adult Smzttvw24 05/16/03 Given Hepatitis A Adult Ftozlod99 12/21/01 Given Varicella Virus Vaccine 01/26/03 Given 1Admin Note: VIS GIVEN: 09/09/20102Admin Note: VIS 09/24/09 [id number] Note: ADMINISTERED BY R.[email or web address] Comment: [01/22/2014] Ordered by [id number] Comment: [01/22/2014] Ordered by [id number] Note: ADM. VIS 06/21 [id number] Note: VIS 08/21 [id number] Note: ADMINISTERED BY [id number] Note: ADMINISTERED BY [id number] Note: ADMINISTERED BY [id number] Note: Administered by [id number] Note: Administered by RGurinderN Medications Alcohol Pads See Instructions, # 50 each, Refills 11, Tot. Refills 11, Maintenance, T2DM check once a day, 11/06/19 13:36:00 EDT, Compound, 170.18, cm, 08/29/19 15:36:00 EDT, Height, 95, kg, 03/27/19 10:22:00 EST, Dry Weight Start Date: 11/06/19 Status: Orderedammonium lactate 12% topical cream 1 application, Topically, 2 times a day, # 280 Gm, 0 Refills, Maintenance, 08/29/19 16:28:00 EDT, Cream, [facility]/pharmacy #[id number], 1 application Topically 2 times a day, 170.18, cm, 08/29/19 15:36:00 EDT, Height, 95, kg, 03/27/19 10:22:00 EST, Dry Weight Start Date: 08/29/19 Status: Orderedempagliflozin 25 mg oral tablet 1 tablet = 25 mg, By Mouth, Daily in AM, # 30 tablet, 0 Refills, Maintenance, 09/09/20 18:08:00 EDT,Tablet, [facility]/pharmacy #[id number], Partial fill upon patient request if the prescription is for a schedule II opioid drug. 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 Start Date: 09/09/20 Status: Orderedfolic acid 1 mg oral tablet 1 mg, 1, tablet, By Mouth, Daily, # 90 tablet, Refills 3, Tot. Refills 3, Maintenance, 06/17/20 8:48:00 EDT, Route to Pharmacy Electronically, [facility]/pharmacy #[id number], Partial fill upon patient request if the prescription is for a schedule II opioid drug.,... Start Date: 06/17/20 Stop Date: 06/12/21 Status: Orderedfolic acid 1 mg oral tablet 1 mg, 1, tablet, By Mouth, Daily, # 90 tablet, Refills 3, Tot. Refills 3, Maintenance, 06/17/20 8:50:00 EDT, Route to Pharmacy Electronically, [facility]/pharmacy #[id number], Partial fill upon patient request [...] 12/06/19 15:17:00 EDT, Route to Pharmacy Electronically, [facility] STORE 96911, 170.18, cm, 08/29/19 15:36:00 EDT, Height, 95, kg, 03/27/19 10:22:00... Start Date: 12/06/19 Status: Orderedlisinopril 10 mg oral tablet 10 mg, 1, tablet, By Mouth, Daily, # 90 tablet, Refills 1, Tot. Refills 1, Maintenance, 06/17/20 8:47:00 EDT, Route to Pharmacy Electronically, [facility]/pharmacy #207, 170.18, cm, 04/16/20 15:13:00 EST, Height, 95, kg, 03/27/19 10:22:00 EST, Dry Weight Start Date: 06/17/20 Status: OrderedMetoprolol Succinate ER 50 mg oral tablet, extended release 1 tablet, By Mouth, Daily, # 30 tablet, 4 Refills, Maintenance, 05/20/20 12:00:00 EDT, [facility], 170.18, cm, 04/16/20 15:13:00 EST, Height, 95, [...] at bedtime, # 30 tablet, 1 Refills, Soft Stop, 10/18/20 7:20:00 EDT, [facility]acy [id number], 170.18, cm, 06/17/20 9:11:00 EDT, Height, 95, kg, 03/27/19 10:22:00 EST, Dry Weight Start Date: 10/18/20 Stop Date: 12/17/20 Status: Orderedsertraline 100 mg oral tablet 1 tablet = 100 mg, By Mouth, Daily, # 90 tablet, 1 Refills, Maintenance, 06/17/20 8:47:00 EDT, Tablet, [id number], Partial fill upon patient request if the prescription is for a schedule II opioid drug., 170.18, cm, 04/16/20 15:13:00 EST, Heig... Start Date: 06/17/20 Status: OrderedtraZODone 150 mg oral tablet 1 tablet, By Mouth, Daily at bedtime, # 30 tablet, 5 Refills, [facility], 170.18, cm, 06/17/20 9:11:00 EDT, Height, 95, [...]
--- OUTSIDE RECORDS SUMMARY | 2021-11-19 01:44 | XMS_ITS | Continuity of Care Document ---
:1970 Author Organization [facility] Address Unavailable , Care Team Providers Name Role Phone Ruma Gilbert MD Primary Care Physician [phone] Encounter [facility] Date(s): 01/24/21 - 03/12/21 [facility] Attending Physician: Bubba Kwan MD Admitting Physician: Bubba Kwan MD Allergies, Adverse Reactions, Alerts Substance Reaction [...] (old term)10 12/21/01 Given Hepatitis A Adult Yrzhkoq95 05/16/03 Given Hepatitis A Adult Kezmxfn83 12/21/01 Given Varicella Virus Vaccine 12/12/03 Given 1Admin Note: VIS GIVEN: 09/09/20102Admin Note: VIS 09/24/09 [id number] Note: ADMINISTERED BY [id number] Comment: [01/22/2014] Ordered by [id number] Comment: [01/22/2014] Ordered by Siqyfnmo5Cdcdm Note: ADM. VIS 06/21 [id number] Note: VIS 08/21 [id number] Note: ADMINISTERED BY [id number] Note: ADMINISTERED BY [id number] Note: ADMINISTERED BY [id number] Note: Administered by LadonnaP89Hzcds Note: Administered by RGurinderN Medications Alcohol Pads [...] 0 Refills, Maintenance, 08/29/19 16:28:00 EDT, Cream, [facility]/pharmacy #[id number], 1 application Topically 2 [...] 06/17/20 8:50:00 EDT, Route to Pharmacy Electronically, [facility]/pharmacy #[id number], Partial fill upon patient [...] in AM, # 30 tablet, 5 Refills, [facility] STORE 93441, 170.18, cm, 01/24/21 10:33:00 EST, Height, 95, kg, 03/27/19 10:22:00 EST, Dry Weight Start Date: 02/17/21 Status: Orderedlisinopril 10 mg oral tablet 1, tablet, By Mouth, Daily, Labs DUE-please go to [facility] lab, # 90 tablet, Refills 0, Tot. Refills0, Maintenance, 12/16/20 12:08:00 EDT, Route to Pharmacy Electronically, [facility]/pharmacy #207, 170.18,cm, 06/17/20 9:11:00 EDT, Height, 95, kg, ... Start Date: 12/16/20 Status: OrderedMetoprolol Succinate ER 50 mg oral tablet, extended release 1 tablet, By Mouth, Daily, # 30 tablet, 11 Refills, Maintenance, 01/24/21 11:43:00 EST, [facility], 170.18, cm, 01/24/21 10:33:00 EST, Height, 95, [...] bedtime, # 30 tablet, 1 Refills, Maintenance, 01/16/21 9:54:00 EST, [facility]/pharmacy #[id number], 170.18, cm, 06/17/20 9:11:00 EDT, Height, 95, kg, 03/27/19 10:22:00 EST, Dry Weight Start Date: 01/16/21 Stop Date: 03/17/21 Status: Orderedsertraline 100 mg oral tablet 1 tablet = 100 mg, By Mouth, Daily, # 90 tablet, 1 Refills, Maintenance, 12/09/20 19:16:00 EDT, Tablet, [facility]/pharmacy #[id number], Partial fill upon patient request if the prescription is for a schedule II opioid drug., 170.18, cm, 06/17/20 9:11:00 EDT, Heig... Start Date: 12/09/20 Status: Orderedthiamine 100 mg oral tablet 100 mg, 1, tablet, By Mouth, Daily, for 90 days, # 90 tablet, Refills 3, Tot. Refills 3, Acute 01/19/22 11:46:00 EST, 01/24/21 11:46:00 EST, Route to Pharmacy Electronically, [facility]/pharmacy #[id number], Partial fill upon patient request if the prescription is... Start Date: 01/24/21 Stop Date: 01/19/22 Status: OrderedtraZODone 150 mg oral tablet 1 tablet, By Mouth, Daily at bedtime, # 30 tablet, 5 Refills, [facility] STORE 44166, 170.18, cm, 06/17/20 9:11:00 EDT, Height, 95, [...]
--- OUTSIDE RECORDS SUMMARY | 2021-11-19 01:44 | XMS_ITS | Continuity of Care Document ---
:1970 Author Organization [facility] enter/[facility] Address [address] [place] [address]- Care Team Providers Name Role Phone Ruma Gilbert MD Primary Care Physician [phone] Encounter [facility] Date(s): 02/05/20 - 03/06/20 [facility] [address], [place] [address] Allergies, Adverse Reactions, Alerts Substance Reaction Severity [...] (old term)10 12/21/01 Given Hepatitis A Adult Ltqqyov92 05/16/03 Given Hepatitis A Adult Nyfhpzv57 12/21/01 Given Varicella Virus Vaccine 01/26/03 Given 1Admin Note: VIS GIVEN: 09/09/20102Admin Note: VIS 09/24/09 [id number] Note: ADMINISTERED BY [id number] Comment: [01/22/2014] Ordered by [id number] Comment: [01/22/2014] Ordered by [id number] Note: ADM. VIS 06/21 [id number] Note: VIS 08/21 [id number] Note: ADMINISTERED BY [id number] Note: ADMINISTERED BY [id number] Note: ADMINISTERED BY [id number] Note: Administered by LadonnaZ04Qivuz Note: Administered by R.Vanessa Medications Alcohol Pads See Instructions, # 50 [...] Tot. Refills 0, Acute, NEEDED FOR PAIN, 10/21/20 15:17:00 EDT, Route to Pharmacy Electronically, [facility], 170.18, cm, 08/29/19 15:36:00 EDT, Height, 95, kg, 03/27/19 10:22:00... Start Date: 12/06/19 Status: Orderedlisinopril 10 mg oral tablet 10 mg, 1, tablet, By Mouth, Daily, # 90 tablet, Refills 1, Tot. Refills 1, Maintenance, 06/19/19 17:03:00 EDT, Route to Pharmacy Electronically, [facility]/pharmacy #[id number], 170.18, cm, 03/27/19 10:22:00 EST, Height, 95, kg, 03/27/19 10:22:00 EST, Dry Weight Start Date: 06/19/19 Status: OrderedMetoprolol Succinate ER 50 mg oral tablet, extended release See Instructions, TAKE 1 TABLET BY MOUTH EVERY DAY, # 30 tablet, 4 Refills, Maintenance, 05/08/19 16:14:00 EDT, [facility]/pharmacy #1, 170.18, cm, 03/27/19 10:22:00 EST, Height, 95, kg, 03/27/19 10:22:00 EST, Dry Weight Start Date: 05/08/19 Status: OrderedQUEtiapine 300 mg oral tablet 1 tablet = 300 mg, By Mouth, Daily at bedtime, # 90 tablet, 3 Refills, Soft Stop, 11/23/19 17:21:00 EDT, [facility]/pharmacy #2070, 170.18, cm, 08/29/19 15:36:00 EDT, Height, 95, kg, 03/27/19 10:22:00 EST, Dry Weight Start Date: 11/23/19 Status: Orderedsertraline 50 mg oral tablet 1 tablet, By Mouth, Daily, # 90 tablet, 1 Refills, Maintenance, 02/05/20 17:37:00 EST, [facility], 170.18, cm, 08/29/19 15:36:00 EDT, Height, 95, kg, 03/27/19 10:22:00 EST, Dry Weight Start Date: 02/05/20 Status: OrderedtraZODone 150 mg oral tablet 1 tablet = 150 mg, By Mouth, Daily at bedtime, # 30 tablet, 4 Refills, Maintenance, 01/05/20 7:26:00EST, Tablet, [facility]/pharmacy #[id number], duplicate rx. original sent 07/27/19. remaining refills sent., 170.18, cm, 08/29/19 15:36:00 EDT, Height, 95, kg, 03/18... Start Date: 01/05/20 Stop Date: 06/03/20 Status: OrderedTrulicity Pen 0.75 mg/0.5 mL subcutaneous solution = 0.75 mg, Subcutaneous Infusion, Every 7 days, # 4 each, 2 Refills, Maintenance, 02/06/20 11:09:00 EST, [facility]/pharmacy #2071, 170.18, cm, 08/29/19 15:36:00 EDT, Height, 95, kg, 03/27/19 10:22:00 EST, Dry Weight Start Date: 02/06/20 Stop Date: 05/06/20 Status: Ordered Problem List Condition Effective Dates [...]
--- OUTSIDE RECORDS SUMMARY | 2021-11-19 01:44 | XMS_ITS | Continuity of Care Document ---
:1970 Author Organization [facility] enter/[facility] Address Unavailable , Care Team Providers Name Role Phone Ruma Gilbert MD Primary Care Physician En[place] [facility] Date(s): 04/08/21 - 05/08/21 [facility] Encounter Diagnosis Pancreatic lesion (Discharge Diagnosis) - 03/24/20 Attending Physician: Nadja Matthews Admitting Physician: Nadja Matthews Referring Physician: AdmtrNadja Allergies, Adverse Reactions, Alerts [...] (old term)10 12/21/01 Given Hepatitis A Adult [id number] 05/16/03 Given Hepatitis A Adult [id number] 12/21/01 Given Varicella Virus Vaccine 01/26/03 Given 1Admin Note: VIS GIVEN: 09/09/20102Admin Note: VIS 09/24/09 [id number] Note: ADMINISTERED BY R.NGurinder4Result Comment: [01/22/2014] Ordered by Anlutefx6Onqpwa Comment: [01/22/2014] Ordered by Adxcnuit4Nlhbo Note: ADM. VIS 06/21 [id number] Note: VIS 08/21 [id number] Note: ADMINISTERED BY [id number] Note: ADMINISTERED BY [id number] Note: ADMINISTERED BY [id number] Note: Administered by LadonnaX67Aphau Note: Administered by R.N Medications Alcohol Pads [...] 0 Refills, Maintenance, 08/29/19 16:28:00 EDT, Cream, [facility]/pharmacy #2071, 1 application Topically 2 [...] 06/17/20 8:50:00 EDT, Route to Pharmacy Electronically, [facility]/pharmacy #[id number], Partial fill upon patient [...] in AM, # 30 tablet, 5 Refills, [facility], 170.18, cm, 01/24/21 10:33:00 EST, Height, 95, kg, 03/27/19 10:22:00 EST, Dry Weight Start Date: 02/17/21 Status: Orderedlisinopril 10 mg oral tablet 1, tablet, By Mouth, Daily, # 90 tablet, Refills 1, Tot. Refills 1, Maintenance, 03/18/21 9:22:00 EST, Route to Pharmacy Electronically, [facility]/pharmacy #2071, 170.18, cm, 01/24/21 10:33:00 EST, Height, 95, kg, 03/27/19 10:22:00 EST, Dry Weight Start Date: 03/18/21 Status: OrderedMetoprolol Succinate ER 50 mg oral tablet, extended release 1 tablet, By Mouth, Daily, # 30 tablet, 11 Refills, Maintenance, 01/24/21 11:43:00 EST, [facility]/pharmacy#2071, 170.18, cm, 01/24/21 10:33:00 EST, Height, 95, [...] tablet, 1 Refills, Maintenance, 04/07/21 16:38:00 EST, [facility]/pharmacy #2071, 170.18, cm, 01/24/21 10:33:00 EST, Height Start Date: 04/07/21 Stop Date: 06/06/21 Status: Orderedsertraline 100 mg oral tablet 1 tablet = 100 mg, By Mouth, Daily, # 30 tablet, 11 Refills, Maintenance, 04/03/21 9:14:00 EST, Tablet, [facility]/pharmacy #[id number], Partial fill upon patient request if the prescription is for a schedule II opioid drug., 170.18, cm, 01/24/21 10:33:00 EST, Height Start Date: 04/03/21 Status: Orderedthiamine 100 mg oral tablet 100 mg, 1, tablet, By Mouth, Daily, for 90 days, # 90 tablet, Refills 3, Tot. Refills 3, Acute 01/19/22 11:46:00 EST, 01/24/21 11:46:00 EST, Route to Pharmacy Electronically, [facility]/pharmacy #[id number], Partial fill upon patient request if the prescription is... Start Date: 01/24/21 Stop Date: 01/19/22 Status: OrderedtraZODone 150 mg oral tablet 1 tablet, By Mouth, Daily at bedtime, # 30 tablet, 5 Refills, [facility] STORE 42454, 170.18, cm, 06/17/20 9:11:00 EDT, Height, 95, [...]
--- OUTSIDE RECORDS SUMMARY | 2021-11-19 01:44 | XMS_ITS | Continuity of Care Document ---
:1970 Author Organization [facility] [place] Address Unavailable , Care Team Providers Name Role Phone Ruma Gilbert MD Primary Care Physician [phone] [place] [facility] [place] 02/17/21 - 03/19/21 [facility] Allergies, Adverse Reactions, Alerts Substance Reaction Severity [...] (old term)10 12/21/01 Given Hepatitis A Adult [id number] 05/16/03 Given Hepatitis A Adult Terqhje96 12/21/01 Given Varicella Virus Vaccine 01/26/03 Given 1Admin Note: VIS GIVEN: 09/09/20102Admin Note: VIS 09/24/09 [id number] Note: ADMINISTERED BY R.NGurinder4Result Comment: [01/22/2014] Ordered by [id number] Comment: [01/22/2014] Ordered by [id number] Note: ADM. VIS 06/21 [id number] Note: VIS 08/21 [id number] Note: ADMINISTERED BY [id number] Note: ADMINISTERED BY [id number] Note: ADMINISTERED BY [id number] Note: Administered by [id number] Note: Administered by RGurinderN Medications Alcohol Pads [...] 0 Refills, Maintenance, 08/29/19 16:28:00 EDT, Cream, [facility]/pharmacy #[id number], 1 application Topically 2 times a [...] 06/17/20 8:50:00 EDT, Route to Pharmacy Electronically, [facility]/pharmacy #[id number], Partial fill upon patient request if [...] in AM, # 30 tablet, 5 Refills, [facility] STORE [id number], 170.18, cm, 01/24/21 10:33:00 EST, Height, 95, kg, 03/27/19 10:22:00 EST, Dry Weight Start Date: 02/17/21 Status: Orderedlisinopril 10 mg oral tablet 1, tablet, By Mouth, Daily, # 90 tablet, Refills 1, Tot. Refills 1, Maintenance, 03/18/21 9:22:00 EST, Route to Pharmacy Electronically, [facility]/pharmacy #[id number], 170.18, cm, 01/24/21 10:33:00 EST, Height, 95, kg, 03/27/19 10:22:00 EST, Dry Weight Start Date: 03/18/21 Status: OrderedMetoprolol Succinate ER 50 mg oral tablet, extended release 1 tablet, By Mouth, Daily, # 30 tablet, 11 Refills, Maintenance, 01/24/21 11:43:00 EST, [facility]/pharmacy#[id number], 170.18, cm, 01/24/21 10:33:00 EST, Height, 95, [...] tablet, 1 Refills, Maintenance, 01/16/21 9:54:00 EST, [facility]/pharmacy #[id number], 170.18, cm, 06/17/20 9:11:00 EDT, Height, 95, kg, 03/27/19 10:22:00 EST, Dry Weight Start Date: 01/16/21 Stop Date: 03/17/21 Status: Orderedsertraline 100 mg oral tablet 1 tablet = 100 mg, By Mouth, Daily, # 90 tablet, 1 Refills, Maintenance, 12/09/20 19:16:00 EDT, Tablet, [facility]/pharmacy #[id number], Partial fill upon patient request if the prescription is for a schedule II opioid drug., 170.18, cm, 06/17/20 9:11:00 EDT, Heig... Start Date: 12/09/20 Status: Orderedthiamine 100 mg oral tablet 100 mg, 1, tablet, By Mouth, Daily, for 90 days, # 90 tablet, Refills 3, Tot. Refills 3, Acute 01/19/22 11:46:00 EST, 01/24/21 11:46:00 EST, Route to Pharmacy Electronically, [facility]/pharmacy #[id number], Partial fill upon patient request if the prescription is... Start Date: 01/24/21 Stop Date: 01/19/22 Status: OrderedtraZODone 150 mg oral tablet 1 tablet, By Mouth, Daily at bedtime, # 30 tablet, 5 Refills, [facility] STORE [id number], 170.18, cm, 06/17/20 9:11:00 EDT, Height, 95, [...]
--- OUTSIDE RECORDS SUMMARY | 2021-11-19 01:44 | XMS_ITS | Continuity of Care Document ---
:1970 Author Organization [facility] enter/[facility] [place] Address [address] [place] [address]- Care Team Providers Name Role Phone Ruma Gilbert MD Primary Care Physician [place] [facility] [place] 09/20/19 [facility]/[address] [address]- [facility] Allergies, Adverse Reactions, Alerts Substance Reaction Severity [...] (old term)10 12/21/01 Given Hepatitis A Adult [id number] 05/16/03 Given Hepatitis A Adult Iyqfqed43 12/21/01 Given Varicella Virus Vaccine 01/26/03 Given 1Admin Note: VIS GIVEN: 09/09/20102Admin Note: VIS 09/24/09 [id number] Note: ADMINISTERED BY Kenneth4Result Comment: [01/22/2014] Ordered by [id number] Comment: [01/22/2014] Ordered by Zqsaxxcv5Vonbm Note: ADM. VIS 06/21 [id number] Note: VIS 08/21 [id number] Note: ADMINISTERED BY [id number] Note: ADMINISTERED BY [id number] Note: ADMINISTERED BY [id number] Note: Administered by [id number] Note: Administered by R.Vanessa Medications Alcohol Pads See Instructions, # 50 each, Refills 11, Tot. Refills 11, Maintenance, T2DM check once a day, 02/27/19 8:56:00 EST, Compound, 170.18, cm, 02/27/19 8:16:00 EST, Height Start Date: 02/27/19 Status: Orderedammonium lactate 12% topical cream 1 application, Topically, 2 times a day, # 280 Gm, 0 Refills, Maintenance, 08/29/19 16:28:00 EDT, Cream, [facility]/pharmacy #207, 1 application Topically 2 times a day, [...] 06/19/19 17:03:00 EDT, Route to Pharmacy Electronically, [facility]/pharmacy #207, 170.18, cm, 03/27/19 10:22:00 EST, Height, 95, kg, 03/27/19 10:22:00 EST, Dry Weight Start Date: 06/19/19 Status: OrderedMetoprolol Succinate ER 50 mg oral tablet, extended release See Instructions, TAKE 1 TABLET BY MOUTH EVERY DAY, # 30 tablet, 4 Refills, Maintenance, 05/08/19 16:14:00 EDT, [facility]/pharmacy #[id number], 170.18, cm, 03/27/19 10:22:00 EST, Height, 95, kg, 03/27/19 10:22:00 EST, Dry Weight Start Date: 05/08/19 Status: OrderedQUEtiapine 300 mg oral tablet 1 tablet = 300 mg, By Mouth, Daily at bedtime, # 30 tablet, 5 Refills, Soft Stop, 02/03/19 8:08:00 EST, [facility]/pharmacy #[id number], 170.18, cm, 10/13/18 9:17:00 EDT, Height Start [...] 4 Refills, Maintenance, 08/22/19 15:17:00 EDT, Tablet, [facility]/pharmacy #[id number], duplicate rx. original sent 07/27/19. remaining refills sent., 170.18, cm, 03/27/19 10:22:00 EST, Height, 95, kg, 02/... Start Date: 08/22/19 Stop Date: 01/19/20 Status: OrderedTrulicity Pen 0.75 mg/0.5 mL subcutaneous solution = 0.75 mg, Subcutaneous Infusion, Every 7 days, # 8 each, 0 Refills, Maintenance, 08/29/19 16:28:00 EDT, [facility]/pharmacy #[id number], 170.18, cm, 08/29/19 15:36:00 EDT, Height, 95, kg, 03/27/19 10:22:00 EST, Dry Weight Start Date: 08/29/19 Stop Date: 10/28/19 Status: Ordered Problem List Condition Effective Dates [...]
--- OUTSIDE RECORDS SUMMARY | 2021-11-19 01:44 | XMS_ITS | Continuity of Care Document ---
:1970 Author Organization [facility] enter/[facility] Address Unavailable , Care Team Providers Name Role Phone Ruma Gilbert MD Primary Care Physician [phone] Encounter [facility] [place] Date(s): 03/18/21 - 05/08/21 [facility] Attending Physician: Sue Tan MD Admitting Physician: Sue Tan MD Allergies, Adverse Reactions, Alerts Substance Reaction [...] (old term)10 12/21/01 Given Hepatitis A Adult [id number] 05/16/03 Given Hepatitis A Adult Dnbkdzy46 12/21/01 Given Varicella Virus Vaccine 01/26/03 Given 1Admin Note: VIS GIVEN: 09/09/20102Admin Note: VIS 09/24/09 [id number] Note: ADMINISTERED BY Kenneth4Result Comment: [01/22/2014] Ordered by [id number] Comment: [01/22/2014] Ordered by Pzqefbfo7Yvbbt Note: ADM. VIS 06/21 [id number] Note: VIS 08/21 [id number] Note: ADMINISTERED BY [id number] Note: ADMINISTERED BY [id number] Note: ADMINISTERED BY [id number] Note: Administered by [id number] Note: Administered by R.N Medications Alcohol Pads [...] 0 Refills, Maintenance, 08/29/19 16:28:00 EDT, Cream, [facility]/pharmacy #[id number], 1 application Topically 2 times [...] 06/17/20 8:50:00 EDT, Route to Pharmacy Electronically, [facility]/pharmacy #[id number], Partial fill upon patient request [...] in AM, # 30 tablet, 5 Refills, [facility] STORE [address]67, 170.18, cm, 01/24/21 10:33:00 EST, Height, 95, kg, 03/27/19 10:22:00 EST, Dry Weight Start Date: 02/17/21 Status: Orderedlisinopril 10 mg oral tablet 1, tablet, By Mouth, Daily, # 90 tablet, Refills 1, Tot. Refills 1, Maintenance, 03/18/21 9:22:00 EST, Route to Pharmacy Electronically, [facility]/pharmacy #[id number], 170.18, cm, 01/24/21 10:33:00 EST, Height, 95, kg, 03/27/19 10:22:00 EST, Dry Weight Start Date: 03/18/21 Status: OrderedMetoprolol Succinate ER 50 mg oral tablet, extended release 1 tablet, By Mouth, Daily, # 30 tablet, 11 Refills, Maintenance, 01/24/21 11:43:00 EST, [facility]/pharmacy#[id number], 170.18, cm, 01/24/21 10:33:00 EST, Height, [...] tablet, 1 Refills, Maintenance, 04/07/21 16:38:00 EST, [facility]/pharmacy #[id number], 170.18, cm, 01/24/21 10:33:00 EST, Height Start Date: 04/07/21 Stop Date: 06/06/21 Status: Orderedsertraline 100 mg oral tablet 1 tablet = 100 mg, By Mouth, Daily, # 30 tablet, 11 Refills, Maintenance, 04/03/21 9:14:00 EST, Tablet, [facility]/pharmacy #[id number], Partial fill upon patient request if the prescription is for a schedule II opioid drug., 170.18, cm, 01/24/21 10:33:00 EST, Height Start Date: 04/03/21 Status: Orderedthiamine 100 mg oral tablet 100 mg, 1, tablet, By Mouth, Daily, for 90 days, # 90 tablet, Refills 3, Tot. Refills 3, Acute 01/19/22 11:46:00 EST, 01/24/21 11:46:00 EST, Route to Pharmacy Electronically, [facility]/pharmacy #[id number], Partial fill upon patient request if the prescription is... Start Date: 01/24/21 Stop Date: 01/19/22 Status: OrderedtraZODone 150 mg oral tablet 1 tablet, By Mouth, Daily at bedtime, # 30 tablet, 5 Refills, [facility] STORE 02060, 170.18, cm, 06/17/20 9:11:00 EDT, Height, 95, [...]
--- OUTSIDE RECORDS SUMMARY | 2021-11-19 01:44 | XMS_ITS | Continuity of Care Document ---
:1970 Author Organization [facility] enter/[facility] Address Unavailable , Care Team Providers Name Role Phone Ruma Gilbert MD Primary Care Physician [phone] Encounter [facility] Date(s): 11/05/20 - 12/05/20 [facility] Encounter Diagnosis Pancreatic lesion (Discharge Diagnosis) - [...] (old term)10 12/21/01 Given Hepatitis A Adult [id number] 05/16/03 Given Hepatitis A Adult Scasqhg92 12/21/01 Given Varicella Virus Vaccine 01/26/03 Given 1Admin Note: VIS GIVEN: 09/09/20102Admin Note: VIS 09/24/09 [id number] Note: ADMINISTERED BY R.NGurinder4Result Comment: [01/22/2014] Ordered by Psqamfpp7Nxngtc Comment: [01/22/2014] Ordered by Ybhhqkiy4Nqopm Note: ADM. VIS 06/21 [id number] Note: VIS 08/21 [id number] Note: ADMINISTERED BY [id number] Note: ADMINISTERED BY [id number] Note: ADMINISTERED BY [id number] Note: Administered by [id number] Note: Administered by R.N Medications Alcohol Pads [...] Refills, Maintenance, 08/29/19 16:28:00 EDT, Cream, [facility]/pharmacy #[id number], 1 application Topically 2 times a day, 170.18, cm, 08/29/19 15:36:00 EDT, Height, 95, kg, 03/27/19 10:22:00 EST, Dry Weight Start Date: 08/29/19 Status: Orderedempagliflozin 25 mg oral tablet 1 tablet = 25 mg, By Mouth, Daily in AM, # 30 tablet, 0 Refills, Maintenance, 09/09/20 18:08:00 EDT,Tablet, [facility]/pharmacy #[id number], Partial fill upon patient request if the prescription is for a schedule II opioid drug. 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 Start Date: 09/09/20 Status: Orderedfolic acid 1 mg oral tablet 1 mg, 1, tablet, By Mouth, Daily, # 90 tablet, Refills 3, Tot. Refills 3, Maintenance, 06/17/20 8:48:00 EDT, Route to Pharmacy Electronically, [facility]/pharmacy #[id number], Partial fill upon patient request if the prescription is for a schedule II opioid drug.,... Start Date: 06/17/20 Stop Date: 06/12/21 Status: Orderedfolic acid 1 mg oral tablet 1 mg, 1, tablet, By Mouth, Daily, # 90 tablet, Refills 3, Tot. Refills 3, Maintenance, 06/17/20 8:50:00 EDT, Route to Pharmacy Electronically, [facility]/pharmacy #[id number], Partial fill upon patient request if the [...] 12/06/19 15:17:00 EDT, Route to Pharmacy Electronically, [facility] STORE [id number], 170.18, cm, 08/29/19 15:36:00 EDT, Height, 95, kg, 03/27/19 10:22:00... Start Date: 12/06/19 Status: Orderedlisinopril 10 mg oral tablet 10 mg, 1, tablet, By Mouth, Daily, # 90 tablet, Refills 1, Tot. Refills 1, Maintenance, 06/17/20 8:47:00 EDT, Route to Pharmacy Electronically, [facility]/pharmacy #2071, 170.18, cm, 04/16/20 15:13:00 EST, Height, 95, kg, 03/27/19 10:22:00 EST, Dry Weight Start Date: 06/17/20 Status: OrderedMetoprolol Succinate ER 50 mg oral tablet, extended release 1 tablet, By Mouth, Daily, # 30 tablet, 4 Refills, Maintenance, 05/20/20 12:00:00 EDT, [facility] STORE 21539, 170.18, cm, 04/16/20 15:13:00 EST, Height, 95, [...] 1 Refills, Soft Stop, 10/18/20 7:20:00 EDT, [facility]/pharmacy #2071, 170.18, cm, 06/17/20 9:11:00 EDT, Height, 95, kg, 03/27/19 10:22:00 EST, Dry Weight Start Date: 10/18/20 Stop Date: 12/17/20 Status: Orderedsertraline 100 mg oral tablet 1 tablet = 100 mg, By Mouth, Daily, # 90 tablet, 1 Refills, Maintenance, 06/17/20 8:47:00 EDT, Tablet, [facility]/pharmacy #2071, Partial fill upon patient request if the prescription is for a schedule II opioid drug., 170.18, cm, 04/16/20 15:13:00 EST, Heig... Start Date: 06/17/20 Status: OrderedtraZODone 150 mg oral tablet 1 tablet, By Mouth, Daily at bedtime, # 30 tablet, 5 Refills, [facility] STORE [address]854, 170.18, cm, 06/17/20 9:11:00 EDT, Height, 95, [...]
--- OUTSIDE RECORDS SUMMARY | 2021-11-19 01:44 | XMS_ITS | Continuity of Care Document ---
:1970 Author Organization [facility] enter/[facility] Address [address] [place] [address]- Care Team Providers Name Role Phone Ruma Gilbert MD Primary Care Physician Encounter [facility] Date(s): 01/04/20 - 02/03/20 [facility]/[address] [address]- Allergies, Adverse Reactions, Alerts Substance Reaction Severity [...] (old term)10 12/21/01 Given Hepatitis A Adult [id number] 05/16/03 Given Hepatitis A Adult Raljpeq92 12/21/01 Given Varicella Virus Vaccine 01/26/03 Given 1Admin Note: VIS GIVEN: 09/09/20102Admin Note: VIS 09/24/09 [id number] Note: ADMINISTERED BY Kenneth4Result Comment: [01/22/2014] Ordered by [id number] Comment: [01/22/2014] Ordered by [id number] Note: ADM. VIS 06/21 [id number] Note: VIS 08/21 [id number] Note: ADMINISTERED BY [id number] Note: ADMINISTERED BY [id number] Note: ADMINISTERED BY [id number] Note: Administered by [id number] Note: Administered by RRhea Medications Alcohol Pads [...] 0 Refills, Maintenance, 08/29/19 16:28:00 EDT, Cream, [facility]/pharmacy #2071, 1 application Topically 2 [...] 12/06/19 15:17:00 EDT, Route to Pharmacy Electronically, [facility] STORE 22789, 170.18, cm, 08/29/19 15:36:00 EDT, Height, 95, kg, 03/27/19 10:22:00... Start Date: 12/06/19 Status: Orderedlisinopril 10 mg oral tablet 10 mg, 1, tablet, By Mouth, Daily, # 90 tablet, Refills 1, Tot. Refills 1, Maintenance, 06/19/19 17:03:00 EDT, [facility], cm, 03/27/19 10:22:00 EST, Height, 95, kg, 03/27/19 10:22:00 EST, Dry Weight Start Date: 06/19/19 Status: OrderedMetoprolol Succinate ER 50 mg oral tablet, extended release See Instructions, TAKE 1 TABLET BY MOUTH EVERY DAY, # 30 tablet, 4 Refills, Maintenance, 05/08/19 16:14:00 EDT, [facility]/pharmacy #2070, 170.18, cm, 03/27/19 10:22:00 EST, Height, 95, kg, 03/27/19 10:22:00 EST, Dry Weight Start Date: 05/08/19 Status: OrderedQUEtiapine 300 mg oral tablet 1 tablet = 300 mg, By Mouth, Daily at bedtime, # 90 tablet, 3 Refills, Soft Stop, 11/23/19 17:21:00 EDT, [facility]/pharmacy #2070, 170.18, cm, 08/29/19 15:36:00 EDT, Height, 95, kg, 03/27/19 10:22:00 EST, Dry Weight Start Date: 11/23/19 Status: Orderedsertraline 50 mg oral tablet 1 tablet = 50 mg, By Mouth, Daily, # 90 tablet, 0 Refills, Maintenance, 11/06/19 13:35:00 EDT, Tablet, [facility]/pharmacy #2071, 170.18, cm, 08/29/19 15:36:00 EDT, Height, 95, kg, 03/27/19 10:22:00 EST, Dry Weight Start Date: 11/06/19 Status: OrderedtraZODone 150 mg oral tablet 1 tablet = 150 mg, By Mouth, Daily at bedtime, # 30 tablet, 4 Refills, Maintenance, 01/05/20 7:26:00EST, Tablet, [facility]/pharmacy #[id number], duplicate rx. original sent 07/27/19. remaining refills sent., 170.18, cm, 08/29/19 15:36:00 EDT, Height, 95, kg, 03/18... Start Date: 01/05/20 Stop Date: 06/03/20 Status: OrderedTrulicity Pen 0.75 mg/0.5 mL subcutaneous solution = 0.75 mg, Subcutaneous Infusion, Every 7 days, # 4 each, 2 Refills, Maintenance, 10/24/19 10:55:00 EDT, [facility]/pharmacy #207, 170.18, cm, 08/29/19 15:36:00 EDT, Height, 95, [...]
--- OUTSIDE RECORDS SUMMARY | 2021-11-19 01:45 | XMS_ITS | Continuity of Care Document ---
:1970 Author Organization [facility] Address Unavailable , Care Team Providers Name Role Phone Ruma Gilbert MD Primary Care Physician [phone] [place] [facility] [place](s): 12/09/20 - 02/12/21 [facility] Attending Physician: Ruma Gilbert MD Admitting Physician: Ruma Gilbert MD Referring Physician: Ruma Gilbert MD Allergies, Adverse Reactions, Alerts Substance Reaction Severity Status Viagra Priapism Active Immunizations Given and Recorded Vaccine Date Status Refusal Reason Influenza Virus Vaccine (oldterm) 10/18/20 Recorded SARS-CoV-2 (COVID-19) mRNA BNT-162b2 vac 08/07/20 Recorde [...] (old term)10 12/21/01 Given Hepatitis A Adult [id number] 05/16/03 Given Hepatitis A Adult Fbvqiom33 12/21/01 Given Varicella Virus Vaccine 01/26/03 Given 1Admin Note: VIS GIVEN: 09/09/20102Admin Note: VIS 09/24/09 [id number] Note: ADMINISTERED BY Kenneth4Result Comment: [01/22/2014] Ordered by [id number] Comment: [01/22/2014] Ordered by [id number] Note: ADM. VIS 06/21 [id number] Note: VIS 08/21 [id number] Note: ADMINISTERED BY [id number] Note: ADMINISTERED BY [id number] Note: ADMINISTERED BY [id number] Note: Administered by LadonnaB03Iemfs Note: Administered by RGurinderN Medications Alcohol Pads [...] 0 Refills, Maintenance, 08/29/19 16:28:00 EDT, Cream, [facility]/pharmacy #2071, 1 application Topically [...] 06/17/20 8:50:00 EDT, Route to Pharmacy Electronically, [facility]/pharmacy #[id number], Partial fill upon patient [...] in AM, # 30 tablet, 0 Refills, [facility] STORE 77472, 170.18, cm, 06/17/20 9:11:00 EDT, Height, 95, kg, 03/27/19 10:22:00 EST, Dry Weight Start Date: 01/16/21 Status: Orderedlisinopril 10 mg oral tablet 1, tablet, By Mouth, Daily, Labs DUE-please go to [facility] lab, # 90 tablet, Refills 0, Tot. Refills0, Maintenance, 12/16/20 12:08:00 EDT, Route to Pharmacy Electronically, [facility]/pharmacy #2071, 170.18,cm, 06/17/20 9:11:00 EDT, Height, 95, kg, [...] tablet, 1 Refills, Maintenance, 01/16/21 9:54:00 EST, [facility]/pharmacy #2071, 170.18, cm, 06/17/20 9:11:00 EDT, Height, 95, kg, 03/27/19 10:22:00 EST, Dry Weight Start Date: 01/16/21 Stop Date: 03/17/21 Status: Orderedsertraline 100 mg oral tablet 1 tablet = 100 mg, By Mouth, Daily, # 90 tablet, 1 Refills, Maintenance, 12/09/20 19:16:00 EDT, Tablet, [facility]/pharmacy #2071, Partial fill upon patient request if the prescription is for a schedule II opioid drug., 170.18, cm, 06/17/20 9:11:00 EDT, Heig... Start Date: 12/09/20 Status: Orderedthiamine 100 mg oral tablet 100 mg, 1, tablet, By Mouth, Daily, for 90 days, # 90 tablet, Refills 3, Tot. Refills 3, Acute 01/19/22 11:46:00 EST, 01/24/21 11:46:00 EST, Route to Pharmacy Electronically, [facility]/pharmacy #[id number], Partial fill upon patient request if the prescription is... Start Date: 01/24/21 Stop Date: 01/19/22 Status: OrderedtraZODone 150 mg oral tablet 1 tablet, By Mouth, Daily at bedtime, # 30 tablet, 5 Refills, [facility] STORE 12646, 170.18, cm, 06/17/20 9:11:00 EDT, Height, 95, [...]
--- OUTSIDE RECORDS SUMMARY | 2021-11-19 01:45 | XMS_ITS | Continuity of Care Document ---
:1970 Author Organization [facility] Address [address] [place] [address]- Care Team Providers Name Role Phone Ruma Gilbert MD Primary Care Physician [place] [facility] [place]): 08/13/20 - 09/12/20 [facility]/[address] [address]- Encounter Diagnosis Pancreatic lesion (Discharge Diagnosis) - 03/24/20 Attending Physician: Nadja Matthews Admitting Physician: AdmNadja [...] (old term)10 12/21/01 Given Hepatitis A Adult [id number] 05/16/03 Given Hepatitis A Adult [id number] 12/21/01 Given Varicella Virus Vaccine 01/26/03 Given 1Admin Note: VIS GIVEN: 09/09/20102Admin Note: VIS 09/24/09 [id number] Note: ADMINISTERED BY R.Denis4Result Comment: [01/22/2014] Ordered by [id number] Comment: [01/22/2014] Ordered by Shanta Note: ADM. VIS 06/21 [id number] Note: VIS 08/21 [id number] Note: ADMINISTERED BY [id number] Note: ADMINISTERED BY [id number] Note: ADMINISTERED BY [id number] Note: Administered by LadonnaM79Klned Note: Administered by R.N Medications Alcohol Pads [...] 0 Refills, Maintenance, 08/29/19 16:28:00 EDT, Cream, [facility]/pharmacy #[id number], 1 application Topically 2 times a day, 170.18, cm, 08/29/19 15:36:00 EDT, Height, 95, kg, 03/27/19 10:22:00 EST, Dry Weight Start Date: 08/29/19 Status: Orderedempagliflozin 25 mg oral tablet 1 tablet = 25 mg, By Mouth, Daily in AM, # 30 tablet, 0 Refills, Maintenance, 09/09/20 18:08:00 EDT,Tablet, [facility]/pharmacy #[id number], Partial fill upon patient request if the prescription is for a schedule II opioid drug. 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 Start Date: 09/09/20 Status: Orderedfolic acid 1 mg oral tablet 1 mg, 1, tablet, By Mouth, Daily, # 90 tablet, Refills 3, Tot. Refills 3, Maintenance, 06/17/20 8:48:00 EDT, Route to Pharmacy Electronically, [facility]/pharmacy #[id number], Partial fill upon patient request if the prescription is for a schedule II opioid drug.,... Start Date: 06/17/20 Stop Date: 06/12/21 Status: Orderedfolic acid 1 mg oral tablet 1 mg, 1, tablet, By Mouth, Daily, # 90 tablet, Refills 3, Tot. Refills 3, Maintenance, 06/17/20 8:50:00 EDT, Route to Pharmacy Electronically, [facility]/pharmacy #[id number], Partial fill upon patient request [...] 12/06/19 15:17:00 EDT, Route to Pharmacy Electronically, [facility] STORE 11302, 170.18, cm, 08/29/19 15:36:00 EDT, Height, 95, kg, 03/27/19 10:22:00... Start Date: 12/06/19 Status: Orderedlisinopril 10 mg oral tablet 10 mg, 1, tablet, By Mouth, Daily, # 90 tablet, Refills 1, Tot. Refills 1, Maintenance, 06/17/20 8:47:00 EDT, Route to Pharmacy Electronically, [facility]/pharmacy #207, 170.18, cm, 04/16/20 15:13:00 EST, Height, 95, kg, 03/27/19 10:22:00 EST, Dry Weight Start Date: 06/17/20 Status: OrderedMetoprolol Succinate ER 50 mg oral tablet, extended release 1 tablet, By Mouth, Daily, # 30 tablet, 4 Refills, Maintenance, 05/20/20 12:00:00 EDT, [facility] STORE 57387, 170.18, cm, 04/16/20 15:13:00 EST, Height, 95, [...] 3 Refills, Soft Stop, 11/23/19 17:21:00 EDT, [facility]/pharmacy #207, 170.18, cm, 08/29/19 15:36:00 EDT, Height, 95, kg, 03/27/19 10:22:00 EST, Dry Weight Start Date: 11/23/19 Status: Orderedsertraline 100 mg oral tablet 1 tablet = 100 mg, By Mouth, Daily, # 90 tablet, 1 Refills, Maintenance, 06/17/20 8:47:00 EDT, Tablet, [facility]/pharmacy #2071, Partial fill upon patient request if the prescription is for a schedule II opioid drug., 170.18, cm, 04/16/20 15:13:00 EST, Heig... Start Date: 06/17/20 Status: OrderedtraZODone 150 mg oral tablet 1 tablet = 150 mg, By Mouth, Daily at bedtime, # 30 tablet, 4 Refills, Maintenance, 06/17/20 8:47:00EDT, Tablet, [facility]/pharmacy #2071, duplicate rx. original sent 07/27/19. [...]
--- OUTSIDE RECORDS SUMMARY | 2021-11-19 01:45 | XMS_ITS | Continuity of Care Document ---
:1970 Author Organization [facility] enter/[facility] Address Unavailable , Care Team Providers Name Role Phone Ruma Gilbert MD Primary Care Physician [place] [facility] [place] [facility] Encounter Diagnosis Pancreatic lesion (Discharge Diagnosis) - [...] (old term)10 12/21/01 Given Hepatitis A Adult [id number] 05/16/03 Given Hepatitis A Adult [id number] 12/21/01 Given Varicella Virus Vaccine 01/26/03 Given 1Admin Note: VIS GIVEN: 09/09/20102Admin Note: VIS 09/24/09 [id number] Note: ADMINISTERED BY R.NGurinder4Result Comment: [01/22/2014] Ordered by [id number] Comment: [01/22/2014] Ordered by Kgvdbgol1Hhona Note: ADM. VIS 06/21 [id number] Note: VIS 08/21 [id number] Note: ADMINISTERED BY [id number] Note: ADMINISTERED BY [id number] Note: ADMINISTERED BY [id number] Note: Administered by LadonnaI73Dgeem Note: Administered by R.N Medications Alcohol Pads [...] 0 Refills, Maintenance, 08/29/19 16:28:00 EDT, Cream, [facility]/pharmacy #[id number], 1 application Topically 2 [...] tablet, Refills 1, Route to Pharmacy Electronically, [facility] 26574, 170.18, cm, 01/24/21 10:33:00 EST, Height Start [...] in AM, # 30 tablet, 5 Refills, [facility] ST[facility] 19054, 170.18, cm, 01/24/21 10:33:00 EST, Height, 95, kg, 03/27/19 10:22:00 EST, Dry Weight Start Date: 02/17/21 Status: Orderedlisinopril 10 mg oral tablet 1, tablet, By Mouth, Daily, # 90 tablet, Refills 1, Tot. Refills 1, Maintenance, 03/18/21 9:22:00 EST, Route to Pharmacy Electronically, [facility]/pharmacy #[id number], 170.18, cm, 01/24/21 10:33:00 [...] # 30 tablet, 2 Refills, [facility], 170.18, cm, 01/24/21 10:33:00 EST, Height Start Date: 05/13/21 Status: Orderedsertraline 100 mg oral tablet 1 tablet = 100 mg, By Mouth, Daily, # 30 tablet, 11 Refills, Maintenance, 04/03/21 9:14:00 EST, Tablet, [facility], Partial fill upon patient request if the prescription is for a schedule II opioid drug., 170.18, cm, 01/24/21 10:33:00 EST, Height Start Date: 04/03/21 Status: Orderedthiamine 100 mg oral tablet 100 mg, 1, tablet, By Mouth, Daily, for 90 days, # 90 tablet, Refills 3, Tot. Refills 3, Acute 01/19/22 11:46:00 EST, 01/24/21 11:46:00 EST, Route to Pharmacy Electronically, [facility]/pharmacy #2071, Partial fill upon patient request if the prescription is... Start Date: 01/24/21 Stop Date: 01/19/22 Status: OrderedtraZODone 150 mg oral tablet 1 tablet, By Mouth, Daily at bedtime, # 30 tablet, 5 Refills, 06/06/21 11:58:00 EDT, [facility], 170.18, cm, 01/24/21 10:33:00 EST, Height [...]
--- OUTSIDE RECORDS SUMMARY | 2021-11-19 01:45 | XMS_ITS | Continuity of Care Document ---
:1970 Author Organization [facility] enter/[facility] Address [address] [place] [address]- Care Team Providers Name Role Phone Ruma Gilbert MD Primary Care Physician Encounter [facility] [place] Date(s): 08/21/19 - 09/20/19 [facility]/[address] [address]- [facility] Allergies, Adverse Reactions, Alerts Substance Reaction [...] (old term)10 12/21/01 Given Hepatitis A Adult [id number] 05/16/03 Given Hepatitis A Adult [id number] 12/21/01 Given Varicella Virus Vaccine 01/26/03 Given 1Admin Note: VIS GIVEN: 09/09/20102Admin Note: VIS 09/24/09 [id number] Note: ADMINISTERED BY [email or web address] Comment: [01/22/2014] Ordered by [id number] Comment: [01/22/2014] Ordered by Hqbkaffh0Ofhch Note: ADM. VIS 06/21 [id number] Note: VIS 08/21 [id number] Note: ADMINISTERED BY [id number] Note: ADMINISTERED BY [id number] Note: ADMINISTERED BY [id number] Note: Administered by FelipaE09Khxmf Note: Administered by R.Vanessa Medications Alcohol Pads See Instructions, # 50 each, Refills 11, Tot. Refills 11, Maintenance, T2DM check once a day, 02/27/19 8:56:00 EST, Compound, 170.18, cm, 02/27/19 8:16:00 EST, Height Start Date: 02/27/19 Status: Orderedammonium lactate 12% topical cream 1 application, Topically, 2 times a day, # 280 Gm, 0 Refills, Maintenance, 08/29/19 16:28:00 EDT, Cream, [facility]/pharmacy #207, 1 application Topically 2 times a [...] 06/19/19 17:03:00 EDT, Route to Pharmacy Electronically, [facility]/pharmacy #207, 170.18, cm, 03/27/19 10:22:00 EST, Height, 95, kg, 03/27/19 10:22:00 EST, Dry Weight Start Date: 06/19/19 Status: OrderedMetoprolol Succinate ER 50 mg oral tablet, extended release See Instructions, TAKE 1 TABLET BY MOUTH EVERY DAY, # 30 tablet, 4 Refills, Maintenance, 05/08/19 16:14:00 EDT, [facility]/pharmacy #2071, 170.18, cm, 03/27/19 10:22:00 EST, Height, [...] 4 Refills, Maintenance, 08/22/19 15:17:00 EDT, Tablet, [facility]/pharmacy #2071, duplicate rx. original sent 07/27/19. remaining [...]
--- OUTSIDE RECORDS SUMMARY | 2021-11-19 01:45 | XMS_ITS | Continuity of Care Document ---
:1970 Author Organization [facility] Address Unavailable , Care Team Providers Name Role Phone Ruma Gilbert MD Primary Care Physician [phone] Encounter [facility] [place] [facility] [id number] Date(s): 02/13/21 - 03/15/21 [facility] Encounter Diagnosis Pancreatic lesion (Discharge Diagnosis) [...] (old term)10 12/21/01 Given Hepatitis A Adult [id number] 05/16/03 Given Hepatitis A Adult Sasjibc52 12/21/01 Given Varicella Virus Vaccine 01/26/03 Given 1Admin Note: VIS GIVEN: 09/09/20102Admin Note: VIS 09/24/09 [id number] Note: ADMINISTERED BY RMel4Result Comment: [01/22/2014] Ordered by [id number] Comment: [01/22/2014] Ordered by Nurcfkor2Uuqss Note: ADM. VIS 06/21 [id number] Note: VIS 08/21 [id number] Note: ADMINISTERED BY [id number] Note: ADMINISTERED BY [id number] Note: ADMINISTERED BY [id number] Note: Administered by LadonnaH58Ncajx Note: Administered by R.N Medications Alcohol Pads [...] 0 Refills, Maintenance, 08/29/19 16:28:00 EDT, Cream, [facility]/pharmacy #2071, 1 application Topically 2 times [...] 06/17/20 8:50:00 EDT, Route to Pharmacy Electronically, [facility]/pharmacy #[id number], Partial fill upon patient request [...] in AM, # 30 tablet, 5 Refills, [facility] STORE 53798, 170.18, cm, 01/24/21 10:33:00 EST, Height, 95, kg, 03/27/19 10:22:00 EST, Dry Weight Start Date: 02/17/21 Status: Orderedlisinopril 10 mg oral tablet 1, tablet, By Mouth, Daily, Labs DUE-please go to [facility] lab, # 90 tablet, Refills 0, Tot. Refills0, Maintenance, 12/16/20 12:08:00 EDT, Route to Pharmacy Electronically, [facility]/pharmacy #2071, 170.18,cm, 06/17/20 9:11:00 EDT, Height, 95, kg, ... Start Date: 12/16/20 Status: OrderedMetoprolol Succinate ER 50 mg oral tablet, extended release 1 tablet, By Mouth, Daily, # 30 tablet, 11 Refills, Maintenance, 01/24/21 11:43:00 EST, [facility]/pharmacy#2071, 170.18, cm, 01/24/21 10:33:00 EST, Height, [...] tablet, 1 Refills, Maintenance, 01/16/21 9:54:00 EST, [facility]/pharmacy #2071, 170.18, cm, 06/17/20 9:11:00 EDT, Height, 95, kg, 03/27/19 10:22:00 EST, Dry Weight Start Date: 01/16/21 Stop Date: 03/17/21 Status: Orderedsertraline 100 mg oral tablet 1 tablet = 100 mg, By Mouth, Daily, # 90 tablet, 1 Refills, Maintenance, 12/09/20 19:16:00 EDT, Tablet, [facility]/pharmacy #2071, Partial fill upon patient request if the prescription is for a schedule II opioid drug., 170.18, cm, 06/17/20 9:11:00 EDT, Heig... Start Date: 12/09/20 Status: Orderedthiamine 100 mg oral tablet 100 mg, 1, tablet, By Mouth, Daily, for 90 days, # 90 tablet, Refills 3, Tot. Refills 3, Acute 01/19/22 11:46:00 EST, 01/24/21 11:46:00 EST, Route to Pharmacy Electronically, [facility]/pharmacy #[id number], Partial fill upon patient request if the prescription is... Start Date: 01/24/21 Stop Date: 01/19/22 Status: OrderedtraZODone 150 mg oral tablet 1 tablet, By Mouth, Daily at bedtime, # 30 tablet, 5 Refills, [facility] STORE 27171, 170.18, cm, 06/17/20 9:11:00 EDT, Height, 95, [...]
--- OUTSIDE RECORDS SUMMARY | 2021-11-19 01:45 | XMS_ITS | Continuity of Care Document ---
:1970 Author Organization [facility] enter/[facility] Address Unavailable , Care Team Providers Name Role Phone Ruma Gilbert MD Primary Care Physician [phone] [place] [facility] [place] 12[place]05/20 [facility] Attending Physician: Ruma Gilbert MD [...] (old term)10 12/21/01 Given Hepatitis A Adult [id number] 05/16/03 Given Hepatitis A Adult Yykrytg55 12/21/01 Given Varicella Virus Vaccine 01/26/03 Given 1Admin Note: VIS GIVEN: 09/09/20102Admin Note: VIS 09/24/09 [id number] Note: ADMINISTERED BY R.NGurinder4Result Comment: [01/22/2014] Ordered by Fizrycfd4Mpxjdq Comment: [01/22/2014] Ordered by Hnbfmpym7Lywzq Note: ADM. VIS 06/21 [id number] Note: VIS 08/21 [id number] Note: ADMINISTERED BY [id number] Note: ADMINISTERED BY [id number] Note: ADMINISTERED BY [id number] Note: Administered by LadonnaK53Oneyd Note: Administered by R.N Medications Alcohol Pads [...] 0 Refills, Maintenance, 08/29/19 16:28:00 EDT, Cream, [facility]/pharmacy #2071, 1 application Topically 2 times a day, 170.18, cm, 08/29/19 15:36:00 EDT, Height, 95, kg, 03/27/19 10:22:00 EST, Dry Weight Start Date: 08/29/19 Status: Orderedempagliflozin 25 mg oral tablet 1 tablet = 25 mg, By Mouth, Daily in AM, # 30 tablet, 0 Refills, Maintenance, 09/09/20 18:08:00 EDT,Tablet, [facility], Partial fill upon patient request if the prescription is for a schedule II opioid drug. 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 Start Date: 09/09/20 Status: Orderedfolic acid 1 mg oral tablet 1 mg, 1, tablet, By Mouth, Daily, # 90 tablet, Refills 3, Tot. Refills 3, Maintenance, 06/17/20 8:48:00 EDT, Route to Pharmacy Electronically, [facility]/pharmacy #2071, Partial fill upon patient request if the prescription is for a schedule II opioid drug.,... Start Date: 06/17/20 Stop Date: 06/12/21 Status: Orderedfolic acid 1 mg oral tablet 1 mg, 1, tablet, By Mouth, Daily, # 90 tablet, Refills 3, Tot. Refills 3, Maintenance, 06/17/20 8:50:00 EDT, Route to Pharmacy Electronically, [facility]/pharmacy #0173, Partial fill upon patient request if the [...] 12/06/19 15:17:00 EDT, Route to Pharmacy Electronically, [facility] STORE [address]4089, 170.18, cm, 08/29/19 15:36:00 EDT, Height, 95, kg, 03/27/19 10:22:00... Start Date: 12/06/19 Status: Orderedlisinopril 10 mg oral tablet 10 mg, 1, tablet, By Mouth, Daily, # 90 tablet, Refills 1, Tot. Refills 1, Maintenance, 06/17/20 8:47:00 EDT, Route to Pharmacy Electronically, [facility]/pharmacy #2071, 170.18, cm, 04/16/20 15:13:00 EST, Height, 95, kg, 03/27/19 10:22:00 EST, Dry Weight Start Date: 06/17/20 Status: OrderedMetoprolol Succinate ER 50 mg oral tablet, extended release 1 tablet, By Mouth, Daily, # 30 tablet, 4 Refills, Maintenance, 05/20/20 12:00:00 EDT, [facility] 46129, 170.18, cm, 04/16/20 15:13:00 EST, Height, 95, [...] 1 Refills, Soft Stop, 10/18/20 7:20:00 EDT, [facility]/pharmacy #2071, 170.18, cm, 06/17/20 9:11:00 EDT, Height, 95, kg, 03/27/19 10:22:00 EST, Dry Weight Start Date: 10/18/20 Stop Date: 12/17/20 Status: Orderedsertraline 100 mg oral tablet 1 tablet = 100 mg, By Mouth, Daily, # 90 tablet, 1 Refills, Maintenance, 06/17/20 8:47:00 EDT, Tablet, [facility]/pharmacy #2071, Partial fill upon patient request if the prescription is for a schedule II opioid drug., 170.18, cm, 04/16/20 15:13:00 EST, Heig... Start Date: 06/17/20 Status: OrderedtraZODone 150 mg oral tablet 1 tablet, By Mouth, Daily at bedtime, # 30 tablet, 5 Refills, [facility] 41346, 170.18, cm, 06/17/20 9:11:00 EDT, Height, 95, [...]
--- OUTSIDE RECORDS SUMMARY | 2021-11-19 01:45 | XMS_ITS | Continuity of Care Document ---
:1970 Author Organization [facility] Address [address] [place] [id number]- Care Team Providers Name Role Phone Ruma Gilbert MD Primary Care Physician [phone] Encounter [facility] [place] Date(s): 04/25/20 - 06/30/[address] [address] Attending Physician: Ruma Gilbert MD Admitting Physician: [...] (old term)10 12/21/01 Given Hepatitis A Adult [id number] 05/16/03 Given Hepatitis A Adult Mppxjux49 12/21/01 Given Varicella Virus Vaccine 01/26/03 Given 1Admin Note: VIS GIVEN: 09/09/20102Admin Note: VIS 09/24/09 [id number] Note: ADMINISTERED BY R.Denis4Result Comment: [01/22/2014] Ordered by Kozxbwps1Pxujht Comment: [01/22/2014] Ordered by Oksmuwxv9Dusqe Note: ADM. VIS 06/21 [id number] Note: VIS 08/21 [id number] Note: ADMINISTERED BY [id number] Note: ADMINISTERED BY [id number] Note: ADMINISTERED BY [id number] Note: Administered by LadonnaO25Zngtk Note: Administered by RGurinderN Medications Alcohol Pads [...] 0 Refills, Maintenance, 08/29/19 16:28:00 EDT, Cream, [facility]/pharmacy #2071, 1 application Topically 2 times a day, 170.18, cm, 08/29/19 15:36:00 EDT, Height, 95, kg, 03/27/19 10:22:00 EST, Dry Weight Start Date: 08/29/19 Status: Orderedempagliflozin 25 mg oral tablet 1 tablet = 25 mg, By Mouth, Daily in AM, # 30 tablet, 3 Refills, Maintenance, 04/16/20 18:31:00 EST,Tablet, [facility]/pharmacy #2071, Partial fill upon patient request if the prescription is for a schedule II opioid drug., 170.18, cm, 04/16/20 15:13:00 EST... Start Date: 04/16/20 Status: Orderedfolic acid 1 mg oral tablet 1 mg, 1, tablet, By Mouth, Daily, # 90 tablet, Refills 3, Tot. Refills 3, Maintenance, 06/17/20 8:48:00 EDT, Route to Pharmacy Electronically, [facility]/pharmacy #2071, Partial fill upon patient request if the prescription is for a schedule II opioid drug.,... Start Date: 06/17/20 Stop Date: 06/12/21 Status: Orderedfolic acid 1 mg oral tablet 1 mg, 1, tablet, By Mouth, Daily, # 90 tablet, Refills 3, Tot. Refills 3, Maintenance, 06/17/20 8:50:00 EDT, Route to Pharmacy Electronically, [facility]/pharmacy #2071, Partial fill upon patient request if [...] 12/06/19 15:17:00 EDT, Route to Pharmacy Electronically, [facility] STORE [address]109, 170.18, cm, 08/29/19 15:36:00 EDT, Height, 95, kg, 03/27/19 10:22:00... Start Date: 12/06/19 Status: Orderedlisinopril 10 mg oral tablet 10 mg, 1, tablet, By Mouth, Daily, # 90 tablet, Refills 1, Tot. Refills 1, Maintenance, 06/17/20 8:47:00 EDT, Route to Pharmacy Electronically, [facility]/pharmacy #207, 170.18, cm, 04/16/20 15:13:00 EST, Height, 95, kg, 03/27/19 10:22:00 EST, Dry Weight Start Date: 06/17/20 Status: OrderedMetoprolol Succinate ER 50 mg oral tablet, extended release 1 tablet, By Mouth, Daily, # 30 tablet, 4 Refills, Maintenance, 05/20/20 12:00:00 EDT, [facility], 170.18, cm, 04/16/20 15:13:00 EST, Height, 95, [...] 3 Refills, Soft Stop, 11/23/19 17:21:00 EDT, [facility]/pharmacy #2071, 170.18, cm, 08/29/19 15:36:00 EDT, Height, 95, kg, 03/27/19 10:22:00 EST, Dry Weight Start Date: 11/23/19 Status: Orderedsertraline 100 mg oral tablet 1 tablet = 100 mg, By Mouth, Daily, # 90 tablet, 1 Refills, Maintenance, 06/17/20 8:47:00 EDT, Tablet, [facility]/pharmacy #2071, Partial fill upon patient request if the prescription is for a schedule II opioid drug., 170.18, cm, 04/16/20 15:13:00 EST, Heig... Start Date: 06/17/20 Status: OrderedtraZODone 150 mg oral tablet 1 tablet = 150 mg, By Mouth, Daily at bedtime, # 30 tablet, 4 Refills, Maintenance, 06/17/20 8:47:00EDT, Tablet, [facility]/pharmacy #2071, duplicate rx. original sent 07/27/19. remaining [...]
--- OUTSIDE RECORDS SUMMARY | 2021-11-19 01:45 | XMS_ITS | Continuity of Care Document ---
:1970 Author Organization [facility] enter/[facility] Address [address] [place] [address]- Care Team Providers Name Role Phone Ruma Gilbert MD Primary Care Physician [phone] [place] [facility] [place] 09/20/[place] [facility]/[address] [address]- [facility] Allergies, Adverse Reactions, Alerts Substance Reaction [...] (old term)10 12/21/01 Given Hepatitis A Adult [id number] 05/16/03 Given Hepatitis A Adult Fggyheq16 12/21/01 Given Varicella Virus Vaccine 01/26/03 Given 1Admin Note: VIS GIVEN: 09/09/20102Admin Note: VIS 09/24/09 [id number] Note: ADMINISTERED BY Kenneth4Result Comment: [01/22/2014] Ordered by [id number] Comment: [01/22/2014] Ordered by [id number] Note: ADM. VIS 06/21 [id number] Note: VIS 08/21 [id number] Note: ADMINISTERED BY [id number] Note: ADMINISTERED BY [id number] Note: ADMINISTERED BY [id number] Note: Administered by FelipaC21Zojih Note: Administered by R.Vanessa Medications Alcohol Pads See Instructions, # 50 each, Refills 11, Tot. Refills 11, Maintenance, T2DM check once a day, 02/27/19 8:56:00 EST, Compound, 170.18, cm, 02/27/19 8:16:00 EST, Height Start Date: 02/27/19 Status: Orderedammonium lactate 12% topical cream 1 application, Topically, 2 times a day, # 280 Gm, 0 Refills, Maintenance, 08/29/19 16:28:00 EDT, Cream, [facility]/pharmacy #207, 1 application Topically 2 times [...] 06/19/19 17:03:00 EDT, Route to Pharmacy Electronically, [facility]/pharmacy #207, 170.18, cm, 03/27/19 10:22:00 EST, Height, 95, kg, 03/27/19 10:22:00 EST, Dry Weight Start Date: 06/19/19 Status: OrderedMetoprolol Succinate ER 50 mg oral tablet, extended release See Instructions, TAKE 1 TABLET BY MOUTH EVERY DAY, # 30 tablet, 4 Refills, Maintenance, 05/08/19 16:14:00 EDT, [facility]/pharmacy #2071, 170.18, cm, 03/27/19 10:22:00 EST, [...] 4 Refills, Maintenance, 08/22/19 15:17:00 EDT, Tablet, [facility]/pharmacy #2071, duplicate rx. original sent 07/27/19. [...]
--- OUTSIDE RECORDS SUMMARY | 2021-11-19 01:45 | XMS_ITS | Continuity of Care Document ---
:1970 Author Organization [facility] enter/[facility] [place] Address [address] [place] [address]- Care Team Providers Name Role Phone Ruma Gilbert MD Primary Care Physician Encounter [facility] [place] Date(s): 08/21/19 - 09/20/19 [facility]/[address] [address]- [facility] Allergies, Adverse Reactions, Alerts Substance Reaction [...] (old term)10 12/21/01 Given Hepatitis A Adult [id number] 05/16/03 Given Hepatitis A Adult Mpauahz78 12/21/01 Given Varicella Virus Vaccine 01/26/03 Given 1Admin Note: VIS GIVEN: 09/09/20102Admin Note: VIS 09/24/09 [id number] Note: ADMINISTERED BY Kenneth4Result Comment: [01/22/2014] Ordered by Qqhrgjkf3Wtpkwo Comment: [01/22/2014] Ordered by Qqyxfoqd5Btosq Note: ADM. VIS 06/21 [id number] Note: VIS 08/21 [id number] Note: ADMINISTERED BY RT6Mbnkr Note: ADMINISTERED BY VF12Cuhbe Note: ADMINISTERED BY XJ45Biabx Note: Administered by FelipaX34Btdor Note: Administered by R.Vanessa Medications Alcohol Pads See Instructions, # 50 each, Refills 11, Tot. Refills 11, Maintenance, T2DM check once a day, 02/27/19 8:56:00 EST, Compound, 170.18, cm, 02/27/19 8:16:00 EST, Height Start Date: 02/27/19 Status: Orderedammonium lactate 12% topical cream 1 application, Topically, 2 times a day, # 280 Gm, 0 Refills, Maintenance, 08/29/19 16:28:00 EDT, Cream, [facility]/pharmacy #207, 1 application Topically 2 times a [...] 06/19/19 17:03:00 EDT, Route to Pharmacy Electronically, [facility]/pharmacy #207, 170.18, cm, 03/27/19 10:22:00 EST, Height, 95, kg, 03/27/19 10:22:00 EST, Dry Weight Start Date: 06/19/19 Status: OrderedMetoprolol Succinate ER 50 mg oral tablet, extended release See Instructions, TAKE 1 TABLET BY MOUTH EVERY DAY, # 30 tablet, 4 Refills, Maintenance, 05/08/19 16:14:00 EDT, [facility]/pharmacy #2071, 170.18, cm, 03/27/19 10:22:00 EST, Height, [...] 4 Refills, Maintenance, 08/22/19 15:17:00 EDT, Tablet, [facility]/pharmacy #2071, duplicate rx. original sent 07/27/19. remaining [...]
--- OUTSIDE RECORDS SUMMARY | 2021-11-19 01:45 | XMS_ITS | Continuity of Care Document ---
:1970 Author Organization [facility] enter/[facility] Address [address] [place] [address]- Care Team Providers Name Role Phone Ruma Gilbert MD Primary Care Physician Encounter [facility] [facility] Date(s): 11/06/19 - 12/06/19 [facility]/[address] [address]- [facility] Attending Physician: Nadja Matthews Admitting Physician: AdmNadja [...] (old term)10 12/21/01 Given Hepatitis A Adult Oyiqmdw28 05/16/03 Given Hepatitis A Adult Zbxpxbi21 12/21/01 Given Varicella Virus Vaccine 01/26/03 Given 1Admin Note: VIS GIVEN: 09/09/20102Admin Note: VIS 09/24/09 [id number] Note: ADMINISTERED BY R.NGurinder4Result Comment: [01/22/2014] Ordered by Pkbwrrrr9Ektcys Comment: [01/22/2014] Ordered by Ocoddkyd0Lvqbi Note: ADM. VIS 06/21 [id number] Note: VIS 08/21 [id number] Note: ADMINISTERED BY LD3Xfxuy Note: ADMINISTERED BY CB47Pfnen Note: ADMINISTERED BY OI70Zbwme Note: Administered by LadonnaV67Moqvf Note: Administered by RRhea Medications Alcohol Pads [...] Route to Pharmacy Electronically, [facility] STORE [facility], 170.18, cm, 08/29/19 15:36:00 EDT, Height, 95, kg, 03/27/19 10:22:00... Start Date: 12/06/19 Status: Orderedlisinopril 10 mg oral tablet 10 mg, 1, tablet, By Mouth, Daily, # 90 tablet, Refills 1, Tot. Refills 1, Maintenance, 06/19/19 17:03:00 EDT, [facility], cm, 03/27/19 10:22:00 EST, Height, 95, kg, 03/27/19 10:22:00 EST, Dry Weight Start Date: 06/19/19 Status: OrderedMetoprolol Succinate ER 50 mg oral tablet, extended release See Instructions, TAKE 1 TABLET BY MOUTH EVERY DAY, # 30 tablet, 4 Refills, Maintenance, 05/08/19 16:14:00 EDT, [facility]/pharmacy #2070, 170.18, cm, 03/27/19 10:22:00 EST, Height, 95, kg, 03/27/19 10:22:00 EST, Dry Weight Start Date: 05/08/19 Status: OrderedQUEtiapine 300 mg oral tablet 1 tablet = 300 mg, By Mouth, Daily at bedtime, # 90 tablet, 3 Refills, Soft Stop, 11/23/19 17:21:00 EDT, [facility]/pharmacy #2071, 170.18, cm, 08/29/19 15:36:00 EDT, Height, 95, kg, 03/27/19 10:22:00 EST, Dry Weight Start Date: 11/23/19 Status: Orderedsertraline 50 mg oral tablet 1 tablet = 50 mg, By Mouth, Daily, # 90 tablet, 0 Refills, Maintenance, 11/06/19 13:35:00 EDT, Tablet, [facility]/pharmacy #207, 170.18, cm, 08/29/19 15:36:00 EDT, Height, 95, kg, 03/27/19 10:22:00 EST, Dry Weight Start Date: 11/06/19 Status: OrderedtraZODone 150 mg oral tablet 1 tablet = 150 mg, By Mouth, Daily at bedtime, # 30 tablet, 4 Refills, Maintenance, 08/22/19 15:17:00 EDT, Tablet, [facility]/pharmacy #2071, duplicate rx. original sent 07/27/19. remaining refills sent., 170.18, cm, 03/27/19 10:22:00 EST, Height, 95, kg, 02/... Start Date: 08/22/19 Stop Date: 01/19/20 Status: OrderedTrulicity Pen 0.75 mg/0.5 mL subcutaneous solution = 0.75 mg, Subcutaneous Infusion, Every 7 days, # 4 each, 2 Refills, Maintenance, 10/24/19 10:55:00 EDT, [facility]/pharmacy #2071, 170.18, cm, [...]
--- OUTSIDE RECORDS SUMMARY | 2021-11-19 01:45 | XMS_ITS | Continuity of Care Document ---
:1970 Author Organization [facility] Address [address] [place] [address]- Care Team Providers Name Role Phone Ruma Gilbert MD Primary Care Physician [phone] [place] [facility] [place] 02/27/19 - 05/28/19 [facility]/[address] [address]- [facility] Attending Physician: Ruma Gilbert MD Admitting [...] (old term)10 12/21/01 Given Hepatitis A Adult Tvsotbi04 05/16/03 Given Hepatitis A Adult Puwnexx30 12/21/01 Given Varicella Virus Vaccine 01/26/03 Given 1Admin Note: VIS GIVEN: 09/09/20102Admin Note: VIS 09/24/09 [id number] Note: ADMINISTERED BY RMel4Result Comment: [01/22/2014] Ordered by Kmzqfzxn6Cykffn Comment: [01/22/2014] Ordered by Shanta Note: ADM. VIS 06/21 [id number] Note: VIS 08/21 [id number] Note: ADMINISTERED BY WT4Icuyj Note: ADMINISTERED BY TB57Pblie Note: ADMINISTERED BY FO86Bhjdz Note: Administered by FelipaC56Ptoud Note: Administered by R.N Medications Alcohol Pads [...] 03/28/19 8:29:00 EST, Route to Pharmacy Electronically, [facility]/pharmacy #2071, 170.18, cm, 03/27/19 10:22:00 EST, Height, 95, kg, 03/27/19 10:22:00 EST, Dry Weight Start Date: 03/28/19 Status: OrderedmetFORMIN 1000 mg oral tablet, extended release 1 tablet = 1,000 mg, By Mouth, Daily, # 90 tablet, 3 Refills, Maintenance, 03/28/19 8:29:00 EST, ER Tablet, [facility]/pharmacy #2071, Please stop immediate release metormin, 170.18, cm, 03/27/19 10:22:00 EST, Height, 95, kg, 03/27/19 10:22:00 EST, Dry Weight Start Date: 03/28/19 Stop Date: 03/22/20 Status: OrderedMetoprolol Succinate ER 50 mg oral tablet, extended release See Instructions, TAKE 1 TABLET BY MOUTH EVERY DAY, # 30 tablet, 4 Refills, Maintenance, 05/08/19 16:14:00 EDT, [facility]/pharmacy #2070, 170.18, cm, 03/27/19 10:22:00 EST, Height, 95, kg, 03/27/19 10:22:00 EST, Dry Weight Start Date: 05/08/19 Status: OrderedQUEtiapine 300 mg oral tablet 1 tablet = 300 mg, By Mouth, Daily at bedtime, # 30 tablet, 5 Refills, Soft Stop, 02/03/19 8:08:00 EST, [facility]/pharmacy #2070, 170.18, cm, 10/13/18 9:17:00 EDT, Height [...] 5 Refills, Maintenance, 02/23/19 14:51:00 EST, Tablet, [facility]/pharmacy #2070, 170.18, cm, 10/13/18 9:17:00 EDT, Height [...]
--- OUTSIDE RECORDS SUMMARY | 2021-11-19 01:45 | XMS_ITS | Continuity of Care Document ---
:1970 Author Organization [facility] Address [address] [place] [address]- Care Team Providers Name Role Phone Ruma Gilbert MD Primary Care Physician [phone] Encounter [facility] Date(s): 07/31/20 - 08/30/20 [facility]/[address] [address]- Allergies, Adverse Reactions, Alerts Substance Reaction Severity [...] (old term)10 12/21/01 Given Hepatitis A Adult Druwras84 05/16/03 Given Hepatitis A Adult Iicjsok60 12/21/01 Given Varicella Virus Vaccine 01/26/03 Given 1Admin Note: VIS GIVEN: 09/09/20102Admin Note: VIS 09/24/09 [id number] Note: ADMINISTERED BY R.N.4Result Comment: [01/22/2014] Ordered by Cpnhlgum4Oolxpf Comment: [01/22/2014] Ordered by Tqpwmyet2Qorra Note: ADM. VIS 06/21 [id number] Note: VIS 08/21 [id number] Note: ADMINISTERED BY FS2Udzht Note: ADMINISTERED BY AM16Didfk Note: ADMINISTERED BY IL25Vmhjz Note: Administered by RGurinderM54Awbfh Note: Administered by R.N Medications Alcohol Pads [...] 0 Refills, Maintenance, 08/29/19 16:28:00 EDT, Cream, [facility]/pharmacy #2071, 1 application Topically 2 times a day, 170.18, cm, 08/29/19 15:36:00 EDT, Height, 95, kg, 03/27/19 10:22:00 EST, Dry Weight Start Date: 08/29/19 Status: Orderedempagliflozin 25 mg oral tablet 1 tablet = 25 mg, By Mouth, Daily in AM, # 30 tablet, 2 Refills, Maintenance, 08/12/20 12:05:00 EDT,Tablet, [facility], Partial fill upon patient request if the prescription is for a schedule II opioid drug. 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 Start Date: 08/12/20 Status: Orderedfolic acid 1 mg oral tablet 1 mg, 1, tablet, By Mouth, Daily, # 90 tablet, Refills 3, Tot. Refills 3, Maintenance, 06/17/20 8:48:00 EDT, Route to Pharmacy Electronically, [facility]/pharmacy #2071, Partial fill upon patient request if the prescription is for a schedule II opioid drug.,... Start Date: 06/17/20 Stop Date: 06/12/21 Status: Orderedfolic acid 1 mg oral tablet 1 mg, 1, tablet, By Mouth, Daily, # 90 tablet, Refills 3, Tot. Refills 3, Maintenance, 06/17/20 8:50:00 EDT, Route to Pharmacy Electronically, [facility]/pharmacy #2071, Partial fill upon patient [...] 12/06/19 15:17:00 EDT, Route to Pharmacy Electronically, [facility] STORE [facility], 170.18, cm, 08/29/19 15:36:00 EDT, Height, 95, kg, 03/27/19 10:22:00... Start Date: 12/06/19 Status: Orderedlisinopril 10 mg oral tablet 10 mg, 1, tablet, By Mouth, Daily, # 90 tablet, Refills 1, Tot. Refills 1, Maintenance, 06/17/20 8:47:00 EDT, Route to Pharmacy Electronically, [facility]/pharmacy #2071, 170.18, cm, 04/16/20 15:13:00 EST, Height, 95, kg, 03/27/19 10:22:00 EST, Dry Weight Start Date: 06/17/20 Status: OrderedMetoprolol Succinate ER 50 mg oral tablet, extended release 1 tablet, By Mouth, Daily, # 30 tablet, 4 Refills, Maintenance, 05/20/20 12:00:00 EDT, [facility] STORE 61893, 170.18, cm, 04/16/20 15:13:00 EST, Height, 95, [...] 3 Refills, Soft Stop, 11/23/19 17:21:00 EDT, [facility]/pharmacy #2071, 170.18, cm, 08/29/19 15:36:00 EDT, Height, 95, kg, 03/27/19 10:22:00 EST, Dry Weight Start Date: 11/23/19 Status: Orderedsertraline 100 mg oral tablet 1 tablet = 100 mg, By Mouth, Daily, # 90 tablet, 1 Refills, Maintenance, 06/17/20 8:47:00 EDT, Tablet, [facility]/pharmacy #2071, Partial fill upon patient request if the prescription is for a schedule II opioid drug., 170.18, cm, 04/16/20 15:13:00 EST, Heig... Start Date: 06/17/20 Status: OrderedtraZODone 150 mg oral tablet 1 tablet = 150 mg, By Mouth, Daily at bedtime, # 30 tablet, 4 Refills, Maintenance, 06/17/20 8:47:00EDT, Tablet, [facility]/pharmacy #2071, duplicate rx. original sent 07/27/19. [...]
--- OUTSIDE RECORDS SUMMARY | 2021-11-19 01:45 | XMS_ITS | Continuity of Care Document ---
:1970 Author Organization [facility] enter/[facility] Address [address] [place] [address]- Care Team Providers Name Role Phone Ruma Gilbert MD Primary Care Physician Encounter [facility] Date(s): 10/24/19 - 11/23/19 [facility]/[address] [address]- [facility] Allergies, Adverse Reactions, Alerts Substance Reaction Severity [...] (old term)10 12/21/01 Given Hepatitis A Adult Ifshepp66 05/16/03 Given Hepatitis A Adult Osxhyrp25 12/21/01 Given Varicella Virus Vaccine 01/26/03 Given 1Admin Note: VIS GIVEN: 09/09/20102Admin Note: VIS 09/24/09 [id number] Note: ADMINISTERED BY Kenneth4Result Comment: [01/22/2014] Ordered by [id number] Comment: [01/22/2014] Ordered by Rrwpunky8Xhofw Note: ADM. VIS 06/21 [id number] Note: VIS 08/21 [id number] Note: ADMINISTERED BY MR8Kddil Note: ADMINISTERED BY KY19Yalkw Note: ADMINISTERED BY YL30Dydrf Note: Administered by LadonnaV50Rhxmk Note: Administered by RRhea Medications Alcohol Pads [...] 0 Refills, Maintenance, 08/29/19 16:28:00 EDT, Cream, [facility]/pharmacy #2071, 1 application Topically 2 times [...] 06/19/19 17:03:00 EDT, Route to Pharmacy Electronically, [facility]/pharmacy #207, 170.18, cm, 03/27/19 10:22:00 EST, Height, 95, kg, 03/27/19 10:22:00 EST, Dry Weight Start Date: 06/19/19 Status: OrderedMetoprolol Succinate ER 50 mg oral tablet, extended release See Instructions, TAKE 1 TABLET BY MOUTH EVERY DAY, # 30 tablet, 4 Refills, Maintenance, 05/08/19 16:14:00 EDT, [facility]/pharmacy #207, 170.18, cm, 03/27/19 10:22:00 EST, Height, 95, kg, 03/27/19 10:22:00 EST, Dry Weight Start Date: 05/08/19 Status: OrderedQUEtiapine 300 mg oral tablet 1 tablet = 300 mg, By Mouth, Daily at bedtime, # 90 tablet, 3 Refills, Soft Stop, 11/23/19 17:21:00 EDT, [facility]/pharmacy #2070, 170.18, cm, 08/29/19 15:36:00 EDT, Height, 95, kg, 03/27/19 10:22:00 EST, Dry Weight Start Date: 11/23/19 Status: Orderedsertraline 50 mg oral tablet 1 tablet = 50 mg, By Mouth, Daily, # 90 tablet, 0 Refills, Maintenance, 11/06/19 13:35:00 EDT, Tablet, [facility]/pharmacy #207, 170.18, cm, 08/29/19 15:36:00 EDT, Height, 95, kg, 03/27/19 10:22:00 EST, Dry Weight Start Date: 11/06/19 Status: OrderedtraZODone 150 mg oral tablet 1 tablet = 150 mg, By Mouth, Daily at bedtime, # 30 tablet, 4 Refills, Maintenance, 08/22/19 15:17:00 EDT, Tablet, [facility]/pharmacy #207, duplicate rx. original sent 07/27/19. remaining refills [...]
--- OUTSIDE RECORDS SUMMARY | 2021-11-19 01:45 | XMS_ITS | Continuity of Care Document ---
:1970 Author Organization [facility] [place] Address Unavailable , Care Team Providers Name Role Phone Ruma Gilbert MD Primary Care Physician Encounter [facility] Date(s): 09/09/20 - 10/09/20 [facility] Allergies, Adverse Reactions, Alerts Substance Reaction [...] (old term)10 12/21/01 Given Hepatitis A Adult Hawyxyp75 05/16/03 Given Hepatitis A Adult Zahurou50 12/21/01 Given Varicella Virus Vaccine 01/26/03 Given 1Admin Note: VIS GIVEN: 09/09/20102Admin Note: VIS 09/24/09 [id number] Note: ADMINISTERED BY R.NGurinder4Result Comment: [01/22/2014] Ordered by Qqeqamgc7Mxcdhw Comment: [01/22/2014] Ordered by Utvenkyu5Dxuix Note: ADM. VIS 06/21 [id number] Note: VIS 08/21 [id number] Note: ADMINISTERED BY KP0Cbiom Note: ADMINISTERED BY EF29Xngji Note: ADMINISTERED BY XF02Yyuyk Note: Administered by LadonnaD83Nzoac Note: Administered by RGurinderN Medications Alcohol Pads [...] 0 Refills, Maintenance, 08/29/19 16:28:00 EDT, Cream, [facility]/pharmacy #2071, 1 application Topically 2 times [...] 06/17/20 8:48:00 EDT, Route to [facility]ically, [facility], Partial fill upon patient request if the prescription is for a schedule II opioid drug.,... Start Date: 06/17/20 Stop Date: 06/12/21 Status: Orderedfolic acid 1 mg oral tablet 1 mg, 1, tablet, By Mouth, Daily, # 90 tablet, Refills 3, Tot. Refills 3, Maintenance, 06/17/20 8:50:00 EDT, Route to [facility]acy [facility]ically, [facility], Partial fill upon patient request [...] 12/06/19 15:17:00 EDT, Route to Pharmacy Electronically, [facility] STORE 26262, 170.18, cm, 08/29/19 15:36:00 EDT, Height, 95, kg, 03/27/19 10:22:00... Start Date: 12/06/19 Status: Orderedlisinopril 10 mg oral tablet 10 mg, 1, tablet, By Mouth, Daily, # 90 tablet, Refills 1, Tot. Refills 1, Maintenance, 06/17/20 8:47:00 EDT, Route to Pharmacy Electronically, [facility]/pharmacy #207, 170.18, cm, 04/16/20 15:13:00 EST, Height, 95, kg, 03/27/19 10:22:00 EST, Dry Weight Start Date: 06/17/20 Status: OrderedMetoprolol Succinate ER 50 mg oral tablet, extended release 1 tablet, By Mouth, Daily, # 30 tablet, 4 Refills, Maintenance, 05/20/20 12:00:00 EDT, [facility], 170.18, cm, 04/16/20 15:13:00 EST, Height, 95, [...] 3 Refills, Soft Stop, 11/23/19 17:21:00 EDT, [facility]/pharmacy #2071, 170.18, cm, 08/29/19 15:36:00 EDT, Height, 95, kg, 03/27/19 10:22:00 EST, Dry Weight Start Date: 11/23/19 Status: Orderedsertraline 100 mg oral tablet 1 tablet = 100 mg, By Mouth, Daily, # 90 tablet, 1 Refills, Maintenance, 06/17/20 8:47:00 EDT, Tablet, [facility]/pharmacy #2071, Partial fill upon patient request if the prescription is for a schedule II opioid drug., 170.18, cm, 04/16/20 15:13:00 EST, Heig... Start Date: 06/17/20 Status: OrderedtraZODone 150 mg oral tablet 1 tablet = 150 mg, By Mouth, Daily at bedtime, # 30 tablet, 4 Refills, Maintenance, 06/17/20 8:47:00EDT, Tablet, [facility]/pharmacy #2071, duplicate rx. original sent 07/27/19. [...]
--- OUTSIDE RECORDS SUMMARY | 2021-11-19 01:45 | XMS_ITS | Continuity of Care Document ---
:1970 Author Organization [facility] enter/[facility] Address Unavailable , Care Team Providers Name Role Phone Ruma Gilbert MD Primary Care Physician [phone] Encounter [facility] [place] Date(s): 05/19/21 - 07/17/21 [facility] Attending Physician: Ruma Gilbert MD Admitting Physician: [...] (old term)10 12/21/01 Given Hepatitis A Adult Cftnezn05 05/16/03 Given Hepatitis A Adult Svldtff77 12/21/01 Given Varicella Virus Vaccine 01/26/03 Given 1Admin Note: VIS GIVEN: 09/09/20102Admin Note: VIS 09/24/09 [id number] Note: ADMINISTERED BY RMel4Result Comment: [01/22/2014] Ordered by Fzkgcpeu2Rtanff Comment: [01/22/2014] Ordered by Cmishosg7Krbvw Note: ADM. VIS 06/21 [id number] Note: VIS 08/21 [id number] Note: ADMINISTERED BY YS6Frfil Note: ADMINISTERED BY VK75Lhtbj Note: ADMINISTERED BY BE98Ezogr Note: Administered by LadonnaB27Throk Note: Administered by R.N Medications Alcohol Pads [...] Refills, Maintenance, 08/29/19 16:28:00 EDT, Cream, [facility]/pharmacy #2071, 1 application Topically 2 times [...] tablet, Refills 1, Route to Pharmacy Electronically, [facility] STORE [address]3228, 170.18, cm, 01/24/21 10:33:00 EST, Height Start [...] in AM, # 30 tablet, 5 Refills, [facility] STORE 19507, 170.18, cm, 01/24/21 10:33:00 EST, Height, 95, kg, 03/27/19 10:22:00 EST, Dry Weight Start Date: 02/17/21 Status: Orderedlisinopril 10 mg oral tablet 1, tablet, By Mouth, Daily, # 90 tablet, Refills 1, Tot. Refills 1, Maintenance, 03/18/21 9:22:00 EST, Route to Pharmacy Electronically, [facility]/pharmacy #2071, 170.18, cm, 01/24/21 10:33:00 EST, Height, 95, kg, 03/27/19 10:22:00 EST, Dry Weight Start Date: 03/18/21 Status: OrderedMetoprolol Succinate ER 50 mg oral tablet, extended release 1 tablet, By Mouth, Daily, # 30 tablet, 11 Refills, Maintenance, 01/24/21 11:43:00 EST, [facility]/pharmacy#2071, 170.18, cm, 01/24/21 10:33:00 EST, Height, [...] # 30 tablet, 2 Refills, [facility], 170.18, cm, 01/24/21 10:33:00 EST, Height Start [...] 01/24/21 11:46:00 EST, Route to Pharmacy Electronically, [facility]/pharmacy #2071, Partial fill upon patient request [...]
--- OUTSIDE RECORDS SUMMARY | 2021-11-19 01:45 | XMS_ITS | Continuity of Care Document ---
:1970 Author Organization [facility] Address [address] [place] [address]- Care Team Providers Name Role Phone Ruma Gilbert MD Primary Care Physician Encounter [facility] Date(s): 06/19/20 - 07/31/20 [facility]/[address] [address] Attending Physician: Ruma Gilbert MD Admitting Physician: [...] (old term)10 12/21/01 Given Hepatitis A Adult Bpxmiep56 05/16/03 Given Hepatitis A Adult Lnsszpy38 12/21/01 Given Varicella Virus Vaccine 01/26/03 Given 1Admin Note: VIS GIVEN: 09/09/20102Admin Note: VIS 09/24/09 [id number] Note: ADMINISTERED BY RMel4Result Comment: [01/22/2014] Ordered by Ntaxofpc3Ewvlso Comment: [01/22/2014] Ordered by Shanta Note: ADM. VIS 06/21 [id number] Note: VIS 08/21 [id number] Note: ADMINISTERED BY UY9Psoro Note: ADMINISTERED BY JF46Smjbb Note: ADMINISTERED BY RQ86Srofz Note: Administered by FelipaM87Jnpmp Note: Administered by R.N Medications Alcohol Pads [...] 0 Refills, Maintenance, 08/29/19 16:28:00 EDT, Cream, [facility]/pharmacy #2071, 1 application Topically 2 times a day, 170.18, cm, 08/29/19 15:36:00 EDT, Height, 95, kg, 03/27/19 10:22:00 EST, Dry Weight Start Date: 08/29/19 Status: Orderedempagliflozin 25 mg oral tablet 1 tablet = 25 mg, By Mouth, Daily in AM, # 30 tablet, 3 Refills, Maintenance, 04/16/20 18:31:00 EST,Tablet, [facility]/pharmacy #2071, Partial fill upon patient request if the prescription is for a schedule II opioid drug., 170.18, cm, 04/16/20 15:13:00 EST... Start Date: 04/16/20 Status: Orderedfolic acid 1 mg oral tablet 1 mg, 1, tablet, By Mouth, Daily, # 90 tablet, Refills 3, Tot. Refills 3, Maintenance, 06/17/20 8:48:00 EDT, Route to Pharmacy Electronically, [facility]/pharmacy #2071, Partial fill upon patient request if the prescription is for a schedule II opioid drug.,... Start Date: 06/17/20 Stop Date: 06/12/21 Status: Orderedfolic acid 1 mg oral tablet 1 mg, 1, tablet, By Mouth, Daily, # 90 tablet, Refills 3, Tot. Refills 3, Maintenance, 06/17/20 8:50:00 EDT, [facility] Partial fill upon patient request if [...] 12/06/19 15:17:00 EDT, Route to Pharmacy Electronically, [facility] STORE [address]17, 170.18, cm, 08/29/19 15:36:00 EDT, Height, 95, kg, 03/27/19 10:22:00... Start Date: 12/06/19 Status: Orderedlisinopril 10 mg oral tablet 10 mg, 1, tablet, By Mouth, Daily, # 90 tablet, Refills 1, Tot. Refills 1, Maintenance, 06/17/20 8:47:00 EDT, Route to Pharmacy Electronically, [facility]/pharmacy #2071, 170.18, cm, 04/16/20 15:13:00 EST, Height, 95, kg, 03/27/19 10:22:00 EST, Dry Weight Start Date: 06/17/20 Status: OrderedMetoprolol Succinate ER 50 mg oral tablet, extended release 1 tablet, By Mouth, Daily, # 30 tablet, 4 Refills, Maintenance, 05/20/20 12:00:00 EDT, [facility], 170.18, cm, 04/16/20 15:13:00 EST, Height, 95, [...] 3 Refills, Soft Stop, 11/23/19 17:21:00 EDT, [facility]/pharmacy #2071, 170.18, cm, 08/29/19 15:36:00 EDT, Height, 95, kg, 03/27/19 10:22:00 EST, Dry Weight Start Date: 11/23/19 Status: Orderedsertraline 100 mg oral tablet 1 tablet = 100 mg, By Mouth, Daily, # 90 tablet, 1 Refills, Maintenance, 06/17/20 8:47:00 EDT, Tablet, [facility]/pharmacy #[id number], Partial fill upon patient request if the prescription is for a schedule II opioid drug., 170.18, cm, 04/16/20 15:13:00 EST, [place]... Start Date: 06/17/20 Status: OrderedtraZODone 150 mg oral tablet 1 tablet = 150 mg, By Mouth, Daily at bedtime, # 30 tablet, 4 Refills, Maintenance, 06/17/20 8:47:00EDT, Tablet, [facility]/pharmacy #[id number], duplicate rx. original [...]
--- OUTSIDE RECORDS SUMMARY | 2021-11-19 01:45 | XMS_ITS | Continuity of Care Document ---
:1970 Author Organization [facility] Address [address] [place] [address]- Care Team Providers Name Role Phone Ruma Gilbert MD Primary Care Physician Encounter [facility] Date(s): 04/16/20 - 05/16/20 [facility] [address] [place] [address]- Encounter Diagnosis Pancreatic lesion (Discharge Diagnosis) - [...] (old term)10 12/21/01 Given Hepatitis A Adult [id number] 05/16/03 Given Hepatitis A Adult [id number] 12/21/01 Given Varicella Virus Vaccine 01/26/03 Given 1Admin Note: VIS GIVEN: 09/09/20102Admin Note: VIS 09/24/09 [id number] Note: ADMINISTERED BY R.NGurinder4Result Comment: [01/22/2014] Ordered by [id number] Comment: [01/22/2014] Ordered by [id number] Note: ADM. VIS 06/21 [id number] Note: VIS 08/21 [id number] Note: ADMINISTERED BY [id number] Note: ADMINISTERED BY [id number] Note: ADMINISTERED BY [id number] Note: Administered by [id number] Note: Administered by R.N Medications Alcohol Pads [...] 0 Refills, Maintenance, 08/29/19 16:28:00 EDT, Cream, [facility]/pharmacy #[id number], 1 application Topically 2 times a day, 170.18, cm, 08/29/19 15:36:00 EDT, Height, 95, kg, 03/27/19 10:22:00 EST, Dry Weight Start Date: 08/29/19 Status: Orderedempagliflozin 25 mg oral tablet 1 tablet = 25 mg, By Mouth, Daily in AM, # 30 tablet, 3 Refills, Maintenance, 04/16/20 18:31:00 EST,Tablet, [facility]/pharmacy #[id number], Partial fill upon patient request if the prescription is for a schedule II opioid drug., 170.18, cm, 04/16/20 15:13:00 EST... Start Date: 04/16/20 Status: OrderedFreestyle Lite Lancets See Instructions, # [...] 12/06/19 15:17:00 EDT, Route to Pharmacy Electronically, [facility] STORE [id number], 170.18, cm, 08/29/19 15:36:00 EDT, Height, 95, kg, 03/27/19 10:22:00... Start Date: 12/06/19 Status: Orderedlisinopril 10 mg oral tablet 10 mg, 1, tablet, By Mouth, Daily, # 90 tablet, Refills 1, Tot. Refills 1, Maintenance, 06/19/19 17:03:00 EDT, Route to Pharmacy Electronically, [facility]/pharmacy #[id number], 170.18, cm, 03/27/19 10:22:00 EST, Height, 95, kg, 03/27/19 10:22:00 EST, Dry Weight Start Date: 06/19/19 Status: OrderedMetoprolol Succinate ER 50 mg oral tablet, extended release See Instructions, TAKE 1 TABLET BY MOUTH EVERY DAY, # 30 tablet, 4 Refills, Maintenance, 05/08/19 16:14:00 EDT, [facility]/pharmacy #[id number], 170.18, cm, 03/27/19 10:22:00 EST, Height, 95, kg, 03/27/19 10:22:00 EST, Dry Weight Start Date: 05/08/19 Status: Orderedomeprazole 20 mg oral enteric coated capsule 0 Refills, Maintenance, 04/16/20 10:59:00 EST, Partial fill upon patient request if the prescriptionis for a schedule II opioid drug. Start Date: 04/16/20 Status: OrderedQUEtiapine 300 mg oral tablet 1 tablet = 300 mg, By Mouth, Daily at bedtime, # 90 tablet, 3 Refills, Soft Stop, 11/23/19 17:21:00 EDT, [facility]/pharmacy #[id number], 170.18, cm, 08/29/19 15:36:00 EDT, Height, 95, kg, 03/27/19 10:22:00 EST, Dry Weight Start Date: 11/23/19 Status: Orderedsertraline 50 mg oral tablet 1 tablet, By Mouth, Daily, # 90 tablet, 1 Refills, Maintenance, 02/05/20 17:37:00 EST, [id number], 170.18, cm, 08/29/19 15:36:00 EDT, Height, 95, kg, 03/27/19 10:22:00 EST, Dry Weight Start Date: 02/05/20 Status: OrderedtraZODone 150 mg oral tablet 1 tablet = 150 mg, By Mouth, Daily at bedtime, # 30 tablet, 4 Refills, Maintenance, 01/05/20 7:26:00EST, Tablet, [facility]/pharmacy #[id number], duplicate rx. original sent 07/27/19. remaining refills sent., 170.18, cm, 08/29/19 15:36:00 EDT, Height, 95, kg, 03/18... Start Date: 01/05/20 Stop Date: 06/03/20 Status: Ordered Problem List Condition Effective Dates [...]
--- OUTSIDE RECORDS SUMMARY | 2021-11-19 01:45 | XMS_ITS | Continuity of Care Document ---
:1970 Author Organization [facility] enter/[facility] Address Unavailable , Care Team Providers Name Role Phone Ruma Gilbert MD Primary Care Physician [phone] Encounter [facility] Date(s): 02/25/21 - 03/27/21 [facility] Allergies, Adverse Reactions, Alerts Substance Reaction Severity [...] (old term)10 12/21/01 Given Hepatitis A Adult [id number] 05/16/03 Given Hepatitis A Adult Dasarqe01 12/21/01 Given Varicella Virus Vaccine 01/26/03 Given 1Admin Note: VIS GIVEN: 09/09/20102Admin Note: VIS 09/24/09 [id number] Note: ADMINISTERED BY Kenneth4Result Comment: [01/22/2014] Ordered by [id number] Comment: [01/22/2014] Ordered by Shanta Note: ADM. VIS 06/21 [id number] Note: VIS 08/21 [id number] Note: ADMINISTERED BY [id number] Note: ADMINISTERED BY [id number] Note: ADMINISTERED BY [id number] Note: Administered by [id number] Note: Administered by RRhea Medications Alcohol Pads [...] 0 Refills, Maintenance, 08/29/19 16:28:00 EDT, Cream, [facility]/pharmacy #[id number], 1 application Topically [...] 06/17/20 8:50:00 EDT, Route to Pharmacy Electronically, [facility]/pharmacy #[id number], Partial fill upon [...] in AM, # 30 tablet, 5 Refills, [facility] STORE [id number], 170.18, cm, 01/24/21 10:33:00 EST, Height, 95, kg, 03/27/19 10:22:00 EST, Dry Weight Start Date: 02/17/21 Status: Orderedlisinopril 10 mg oral tablet 1, tablet, By Mouth, Daily, # 90 tablet, Refills 1, Tot. Refills 1, Maintenance, 03/18/21 9:22:00 EST, Route to Pharmacy Electronically, [facility]/pharmacy #[id number], 170.18, cm, 01/24/21 10:33:00 EST, Height, 95, kg, 03/27/19 10:22:00 EST, Dry Weight Start Date: 03/18/21 Status: OrderedMetoprolol Succinate ER 50 mg oral tablet, extended release 1 tablet, By Mouth, Daily, # 30 tablet, 11 Refills, Maintenance, 01/24/21 11:43:00 EST, [facility]/pharmacy#2071, 170.18, cm, 01/24/21 10:33:00 EST, [...] tablet, 1 Refills, Maintenance, 01/16/21 9:54:00 EST, [facility]/pharmacy #[id number], 170.18, cm, 06/17/20 9:11:00 EDT, Height, 95, kg, 03/27/19 10:22:00 EST, Dry Weight Start Date: 01/16/21 Stop Date: 03/17/21 Status: Orderedsertraline 100 mg oral tablet 1 tablet = 100 mg, By Mouth, Daily, # 90 tablet, 1 Refills, Maintenance, 12/09/20 19:16:00 EDT, Tablet, [facility]/pharmacy #[id number], Partial fill upon patient request if the prescription is for a schedule II opioid drug., 170.18, cm, 06/17/20 9:11:00 EDT, Heig... Start Date: 12/09/20 Status: Orderedthiamine 100 mg oral tablet 100 mg, 1, tablet, By Mouth, Daily, for 90 days, # 90 tablet, Refills 3, Tot. Refills 3, Acute 01/19/22 11:46:00 EST, 01/24/21 11:46:00 EST, Route to Pharmacy Electronically, [facility]/pharmacy #[id number], Partial fill upon patient request if the prescription is... Start Date: 01/24/21 Stop Date: 01/19/22 Status: OrderedtraZODone 150 mg oral tablet 1 tablet, By Mouth, Daily at bedtime, # 30 tablet, 5 Refills, [facility] STORE [facility]28, 170.18, cm, 06/17/20 9:11:00 EDT, Height, 95, [...]
--- OUTSIDE RECORDS SUMMARY | 2021-11-19 01:45 | XMS_ITS | Continuity of Care Document ---
:1970 Author Organization [facility] enter/[facility] Address [address] [place] [address]- Care Team Providers Name Role Phone Ruma Gilbert MD Primary Care Physician [phone] Encounter [facility] Date(s): 10/13/19 - 11/15/19 [facility]/[address] [address]- [facility] Attending Physician: Ruma Gilbert MD Admitting [...] (old term)10 12/21/01 Given Hepatitis A Adult [id number] 05/16/03 Given Hepatitis A Adult Olmaxuz20 12/21/01 Given Varicella Virus Vaccine 01/26/03 Given 1Admin Note: VIS GIVEN: 09/09/20102Admin Note: VIS 09/24/09 [id number] Note: ADMINISTERED BY R.N.4Result Comment: [01/22/2014] Ordered by [id number] Comment: [01/22/2014] Ordered by [id number] Note: ADM. VIS 06/21 [id number] Note: VIS 08/21 [id number] Note: ADMINISTERED BY [id number] Note: ADMINISTERED BY [id number] Note: ADMINISTERED BY [id number] Note: Administered by [id number] Note: Administered by RRhea Medications Alcohol Pads [...] 06/19/19 17:03:00 EDT, Route to Pharmacy Electronically, [facility]/pharmacy #207, 170.18, cm, 03/27/19 10:22:00 EST, Height, 95, kg, 03/27/19 10:22:00 EST, Dry Weight Start Date: 06/19/19 Status: OrderedMetoprolol Succinate ER 50 mg oral tablet, extended release See Instructions, TAKE 1 TABLET BY MOUTH EVERY DAY, # 30 tablet, 4 Refills, Maintenance, 05/08/19 16:14:00 EDT, [facility]/pharmacy #207, 170.18, cm, 03/27/19 10:22:00 EST, Height, 95, kg, 03/27/19 10:22:00 EST, Dry Weight Start Date: 05/08/19 Status: OrderedQUEtiapine 300 mg oral tablet 1 tablet = 300 mg, By Mouth, Daily at bedtime, # 30 tablet, 5 Refills, Soft Stop, 02/03/19 8:08:00 EST, [facility]/pharmacy #207, 170.18, cm, 10/13/18 9:17:00 EDT, Height Start Date: 02/03/19 Stop Date: 08/02/19 Status: Orderedsertraline 50 mg oral tablet 1 tablet = 50 mg, By Mouth, Daily, # 90 tablet, 0 Refills, Maintenance, 11/06/19 13:35:00 EDT, Tablet, [facility]/pharmacy #[id number], 170.18, cm, 08/29/19 15:36:00 EDT, Height, 95, kg, 03/27/19 10:22:00 EST, Dry Weight Start Date: 11/06/19 Status: OrderedtraZODone 150 mg oral tablet 1 tablet = 150 mg, By Mouth, Daily at bedtime, # 30 tablet, 4 Refills, Maintenance, 08/22/19 15:17:00 EDT, Tablet, [facility]/pharmacy #[id number], duplicate rx. original sent 07/27/19. [...]
--- OUTSIDE RECORDS SUMMARY | 2021-11-19 01:45 | XMS_ITS | Continuity of Care Document ---
:1970 Author Organization [facility] Address [address] [place] [address]- Care Team Providers Name Role Phone Ruma Gilbert MD Primary Care Physician Encounter [facility] Date(s): 03/27/19 - 05/17/19 [facility]/[address] [address]- [facility] Attending Physician: Padma Manzano MD Admitting Physician: Padma Manzano MD Allergies, Adverse Reactions, Alerts Substance Reaction [...] (old term)10 12/21/01 Given Hepatitis A Adult Tumzkvt04 05/16/03 Given Hepatitis A Adult Rzzvzvb82 12/21/01 Given Varicella Virus Vaccine 01/26/03 Given 1Admin Note: VIS GIVEN: 09/09/20102Admin Note: VIS 09/24/09 [id number] Note: ADMINISTERED BY R.NGurinder4Result Comment: [01/22/2014] Ordered by [id number] Comment: [01/22/2014] Ordered by Shanta Note: ADM. VIS 06/21 [id number] Note: VIS 08/21 [id number] Note: ADMINISTERED BY [id number] Note: ADMINISTERED BY [id number] Note: ADMINISTERED BY [id number] Note: Administered by FelipaE49Hyprn Note: Administered by RRhea Medications Alcohol Pads See Instructions, # 50 each, Refills 11, Tot. Refills 11, Maintenance, T2DM check once a day, 02/27/19 8:56:00 EST, Compound, 170.18, cm, 02/27/19 8:16:00 EST, Height Start Date: 02/27/19 Status: Orderedammonium lactate 12% topical cream 1 application, Topically, 2 times a day, # 280 Gm, 0 Refills, Maintenance, 02/27/19 8:58:00 EST, Cream, [facility]/pharmacy #[id number], 1 application Topically 2 times [...] 03/28/19 8:29:00 EST, Route to Pharmacy Electronically, [facility]/pharmacy #[id number], 170.18, cm, 03/27/19 10:22:00 EST, Height, 95, kg, 03/27/19 10:22:00 EST, Dry Weight Start Date: 03/28/19 Status: OrderedmetFORMIN 1000 mg oral tablet, extended release 1 tablet = 1,000 mg, By Mouth, Daily, # 90 tablet, 3 Refills, Maintenance, 03/28/19 8:29:00 EST, ER Tablet, [facility]/pharmacy #[id number], Please stop immediate release metormin, 170.18, cm, 03/27/19 10:22:00 EST, Height, 95, kg, 03/27/19 10:22:00 EST, Dry Weight Start Date: 03/28/19 Stop Date: 03/22/20 Status: OrderedMetoprolol Succinate ER 50 mg oral tablet, extended release See Instructions, TAKE 1 TABLET BY MOUTH EVERY DAY, # 30 tablet, 4 Refills, Maintenance, 05/08/19 16:14:00 EDT, [facility]/pharmacy #2070, 170.18, cm, 03/27/19 10:22:00 EST, Height, 95, kg, 03/27/19 10:22:00 EST, Dry Weight Start Date: 05/08/19 Status: OrderedQUEtiapine 300 mg oral tablet 1 tablet = 300 mg, By Mouth, Daily at bedtime, # 30 tablet, 5 Refills, Soft Stop, 02/03/19 8:08:00 EST, [facility]/pharmacy #[id number], 170.18, cm, 10/13/18 9:17:00 EDT, [...] 5 Refills, Maintenance, 02/23/19 14:51:00 EST, Tablet, [facility]/pharmacy #[id number], 170.18, cm, 10/13/18 9:17:00 EDT, Height [...]
--- OUTSIDE RECORDS SUMMARY | 2021-11-19 01:45 | XMS_ITS | Continuity of Care Document ---
:1970 Author Organization [facility] enter/[facility] Address [address] [place] [address]- Care Team Providers Name Role Phone Ruma Gilbert MD Primary Care Physician Encounter [facility] Date(s): 06/14/20 - 07/14/20 [facility]/[address] [address] Allergies, Adverse Reactions, Alerts Substance Reaction Severity [...] (old term)10 12/21/01 Given Hepatitis A Adult Faifsgj38 05/16/03 Given Hepatitis A Adult Tqnoesz61 12/21/01 Given Varicella Virus Vaccine 01/26/03 Given 1Admin Note: VIS GIVEN: 09/09/20102Admin Note: VIS 09/24/09 [id number] Note: ADMINISTERED BY Kenneth4Result Comment: [01/22/2014] Ordered by [id number] Comment: [01/22/2014] Ordered by [id number] Note: ADM. VIS 06/21 [id number] Note: VIS 08/21 [id number] Note: ADMINISTERED BY [id number] Note: ADMINISTERED BY [id number] Note: ADMINISTERED BY [id number] Note: Administered by LadonnaN61Jmshs Note: Administered by R.N Medications Alcohol Pads [...] 0 Refills, Maintenance, 08/29/19 16:28:00 EDT, Cream, [facility]/pharmacy #[id number], 1 application Topically 2 times a day, 170.18, cm, 08/29/19 15:36:00 EDT, Height, 95, kg, 03/27/19 10:22:00 EST, Dry Weight Start Date: 08/29/19 Status: Orderedempagliflozin 25 mg oral tablet 1 tablet = 25 mg, By Mouth, Daily in AM, # 30 tablet, 3 Refills, Maintenance, 04/16/20 18:31:00 EST,Tablet, [facility]/pharmacy #[id number], Partial fill upon patient request if [...] 06/17/20 8:50:00 EDT, Route to Pharmacy Electronically, [facility]/pharmacy #[id number], Partial fill upon patient request if [...] 12/06/19 15:17:00 EDT, Route to Pharmacy Electronically, [facility] STORE [address]04, 170.18, cm, 08/29/19 15:36:00 EDT, Height, 95, kg, 03/27/19 10:22:00... Start Date: 12/06/19 Status: Orderedlisinopril 10 mg oral tablet 10 mg, 1, tablet, By Mouth, Daily, # 90 tablet, Refills 1, Tot. Refills 1, Maintenance, 06/17/20 8:47:00 EDT, Route to Pharmacy Electronically, [facility]/pharmacy #207, 170.18, cm, 04/16/20 15:13:00 EST, Height, 95, kg, 03/27/19 10:22:00 EST, Dry Weight Start Date: 06/17/20 Status: OrderedMetoprolol Succinate ER 50 mg oral tablet, extended release 1 tablet, By Mouth, Daily, # 30 tablet, 4 Refills, Maintenance, 05/20/20 12:00:00 EDT, [facility], 170.18, cm, 04/16/20 15:13:00 EST, Height, 95, [...] 3 Refills, Soft Stop, 11/23/19 17:21:00 EDT, [facility]/pharmacy #2071, 170.18, cm, 08/29/19 15:36:00 EDT, Height, 95, kg, 03/27/19 10:22:00 EST, Dry Weight Start Date: 11/23/19 Status: Orderedsertraline 100 mg oral tablet 1 tablet = 100 mg, By Mouth, Daily, # 90 tablet, 1 Refills, Maintenance, 06/17/20 8:47:00 EDT, Tablet, [facility]/pharmacy #[id number], Partial fill upon patient request if the prescription is for a schedule II opioid drug., 170.18, cm, 04/16/20 15:13:00 EST, Heig... Start Date: 06/17/20 Status: OrderedtraZODone 150 mg oral tablet 1 tablet = 150 mg, By Mouth, Daily at bedtime, # 30 tablet, 4 Refills, Maintenance, 06/17/20 8:47:00EDT, Tablet, [id number], duplicate rx. original sent 07/27/19. remaining [...]
[2021-11-19 02:05] VITALS: BP 162/89; PULSE 76; RESP 15; TEMP 36.9; O2SAT 94
--- NOTE | 2021-11-19 02:05 | ED.GENADULT ---
HPI - General Adult General Chief complaint: General Medical Stated complaint: back pain, no injury Time Seen by Provider: 11/19/21 02:05 Source: patient Mode of arrival: ambulatory Limitations: no limitations History of Present Illness HPI narrative: Patient's history of alcohol induced pancreatitis had few drinks 3 - 4 days ago since then having pain in the midback with slight nausea pain got worse after eating no fever no chills no vomiting ,had small loose bowel today denies any significant abdominal pain but feel distended slightly Related Data Home Medications Medication Instructions Recorded Confirmed metoprolol succinate 50 mg 50 mg PO DAILY 02/27/20 08/05/21 tablet,extended release 24 hr quetiapine 300 mg tablet 300 mg PO BEDTIME 02/27/20 08/05/21 trazodone 150 mg tablet 150 mg PO BEDTIME 02/27/20 08/05/21 empagliflozin 25 mg tablet 25 mg PO DAILY 05/22/20 08/05/21 (Jardiance) lisinopril 10 mg tablet 1 tab PO DAILY 11/04/20 08/05/21 sertraline 100 mg tablet 1 tab PO DAILY 06/23/21 08/05/21 Previous Rx's Medication Instructions Recorded folic acid 1 mg tablet 1 mg PO DAILY #30 tabs 05/26/20 thiamine mononitrate (vit B1) 100 100 mg PO DAILY #30 tabs 05/26/20 mg tablet ondansetron 4 mg disintegrating 4 mg PO Q8H PRN nausea and 06/10/21 tablet vomiting #20 tabs Allergies Allergy/AdvReac Type Severity Reaction Status Date / Time No Known Allergies Allergy Verified 11/18/21 20:28 [No Known Allergies*] Review of Systems Review of Systems: Yes all other systems are reviewed and are negative PMF Past Medical History Medical History Alcohol abuse Alcohol withdrawal Arthritis Cocaine abuse Cocaine abuse Diabetes mellitus Duodenitis Hypertension Pancreatitis Seizures Surgical History H/O hernia repair Family History Family History Other CAD (coronary artery disease) Diabetes mellitus Social History Social History Household Members: None Housing: Apartment Do you presently have visiting nurse or other home services: No Alcohol intake: current Alcohol intake frequency: a few times a week Alcohol type: beer Patient Tobacco Use Status: Never used Tobacco Second Hand Smoke Exposure: No Substance Use Type: Prescription Drugs Advance Directives: Yes Advance Directives on File: Yes Advance Directives Date on File: 02/27/20 service: No Current occupational status: disabled Physical Exam ED Vital Signs: Vital Signs - 24 hr 11/18/21 20:17 11/19/21 02:05 Temperature 99.0 F 98.5 F Pulse Rate 98 76 Respiratory Rate 18 15 Blood Pressure 110/74 162/89 H Pulse Oximetry 99 94 Oxygen Delivery Method Room Air Room Air BMI result Body Mass Index 28.8 Appearance: Alert. Oriented X3. No acute distress. Eyes: PERRLA, No Nystagmus ENT: Pharynx normal. Oral Mucosa moist Neck: Normal inspection. Neck supple. CVS: Normal heart rate and rhythm. Pulses normal. Respiratory: No respiratory distress. Equal air entry bilateral, no wheezing/rales/rhonchi Abdomen: Soft and nontender. Bowel sounds are present, no mass palpable, no CVA tenderness Skin: Skin warm and dry. Normal skin color. Normal skin turgor. Extremities: No lower extremity edema. No calf tenderness back: Diffuse tenderness mid back area no spinal deformity Neuro: Oriented X 3. No motor deficit. No sensory deficit.No cerebellar signs , cranial nerves II-XII intact Medical Decision Making MDM Narrative Medical decision making narrative: Patient's history of pancreatitis with hypertriglyceridemia with history of alcohol use off and on good both factors causing pancreatitis at this time patient does not have significant abdominal pain taking p.o. fluids will discharge patient home on Tricor and pain medication advised to follow-up with PCP or report to the ER if worsening of the pain or vomiting Lab Data Lab results reviewed: Yes I reviewed the patient's lab results. Result diagrams: 11/18/21 20:36 11/18/21 20:36 Labs: Lab Results 11/18/21 11/18/21 Range/Units 20:36 20:36 WBC 10.3 (4.8-10.8) X10*3/uL RBC 4.38 L (4.60-5.80) X10*6/uL Hgb 14.0 (14.0-18.0) g/dl Hct 40.2 L (42.0-52.0) % MCV 91.8 (80.0-98.0) fL MCH 32.0 (27.0-33.0) pg MCHC 34.8 (31.0-36.0) g/dl RDW 11.7 (11.0-16.0) % Plt Count 205 (160-400) X10*3/uL MPV 9.2 L (9.4-12.4) fL Immature Gran % (Auto) 0.5 H (0.0-0.4) % Neut % (Auto) 66.6 (45-73) % Lymph % (Auto) 22.4 (20-40) % Laurens % (Auto) 7.9 (2-11) % Eos % (Auto) 1.9 (0-4) % Baso % (Auto) 0.7 (0-2) % Lymph # (Auto) 2.3 (1.2-4.9) X10*3/uL Laurens # (Auto) 0.8 (0.1-1.2) X10*3/uL Eos # (Auto) 0.2 (0.0-0.4) X10*3/uL Baso # (Auto) 0.1 (0.0-0.2) X10*3/uL Abs Immat Gran (auto) 0.05 H (0.00-0.03) X10*3/uL Absolute Neuts (auto) 6.9 (2.0-8.3) x10*3/uL Absolute Nucleated RBC 0.000 (0.0-0.012) X10*3/uL Nucleated RBC % (auto) 0.0 (0.0-0.2) /100WBC Sodium 138 (135-145) mmol/L Potassium 4.0 (3.3-5.1) mmol/L Chloride 99 (96-108) mmol/L Carbon Dioxide 25 (22-29) mmol/L Anion Gap 18 (12-20) BUN 14 D (9-16) mg/dL Creatinine 0.86 (0.5-1.4) mg/dL Estim Creat Clear Calc 106.0 Estimated GFR > 60 Random Glucose 175 H (60-115) mg/dL Calcium 9.7 D (8.4-10.2) mg/dL Total Bilirubin 0.6 (0.0-1.0) mg/dL AST 30 D (5-37) U/L ALT 26 (0-40) U/L Alkaline Phosphatase 90 (39-117) U/L Total Protein 7.5 (6.5-8.0) g/dL Albumin 4.7 (3.5-5.0) g/dL Triglycerides 506 mg/dL Lipase 113 H (8-78) U/L Discharge Plan Discharge Clinical Impression: Acute pancreatitis, Hypertriglyceridemia Patient Disposition: Home, Self-Care Prescriptions: No Action Jardiance 25 mg tablet 25 mg PO DAILY Rx Instructions: Per patient and Salma ([place] for Dr Gilbert) This replaces franco. patient is not on metformin anymore either folic acid 1 mg Tablet 1 mg PO DAILY Qty: 30 0RF thiamine mononitrate (vit B1) 100 mg Tablet 100 mg PO DAILY Qty: 30 0RF quetiapine 300 mg tablet 300 mg PO BEDTIME metoprolol succinate 50 mg tablet extended release 24 hr 50 mg PO DAILY trazodone 150 mg tablet 150 mg PO BEDTIME lisinopril 10 mg tablet 1 tab PO DAILY sertraline 100 mg tablet 1 tab PO DAILY ondansetron 4 mg tablet,disintegrating 4 mg PO Q8H PRN (Reason: nausea and vomiting) Qty: 20 0RF
[2021-11-19 02:34] LABS: Lipase 113 U/L (8-78); Triglycerides 506 mg/dL
[2021-11-19] MEDS: Morphine Sulfate 4 MG/ML CARTRIDGE IVPUSH (02:40)
[2021-11-19] MEDS: ondansetron HCL 4 MG/2 ML VIAL IVPUSH (02:40)
[2021-11-19] MEDS: 0.9 % Sodium Chloride 1,000 ML 999 ML IV (02:41)
== END 2021-11-19 04:07 | disposition home or self-care (01) ==
PROVIDERS: Emergency Provider Internal Medicine
DX: K85.90 Acute pancreatitis without necrosis or infection, unspecified (principal); M54.50 Low back pain, unspecified; E78.1 Pure hyperglyceridemia; Z79.899 Other long term (current) drug therapy
CPT/HCPCS: 36415; 80053; 83690; 84478; 85025; 96374; 96375; 99283; 99284; J2270; J2405

== ENCOUNTER 2022-01-29 21:54 | Inpatient (IN) | payer OTHER, SELFPAY ==
--- NOTE | ~2022-01-29 | CT_ITS ---
EXAMINATION: CT ABDOMEN AND PELVIS WITH CONTRAST CLINICAL INFORMATION: Acute pancreatitis follow-up COMPARISON: CT abdomen pelvis January 29, 2022 TECHNIQUE: Multidetector volumetric images were obtained from the superior aspect of the liver through the pubic symphysis following administration 85 mL of Omnipaque 350 intravenous contrast. Sagittal and coronal reformatted images were obtained on the technologist's workstation. This CT examination was performed using dose optimization techniques as appropriate, variously including the following: *Automated exposure control *Adjustment of mA and/or kV according to patient size (this includes techniques or standardized protocols for targeted exams where dose is matched to indication/reason for exam; i.e. extremities or head) *Use of iterative reconstruction technique DLP: 830 mGy-cm FINDINGS: Visualized lung bases demonstrate a small left and tiny right-sided pleural effusion with minimal overlying airspace disease, suspect atelectasis. The liver demonstrates normal size, contour and attenuation. The gallbladder is normally distended. Hyperdense material within the gallbladder is nonspecific but most suggestive of vicarious contrast excretion. The pancreas demonstrates relatively homogeneous enhancement within its head and body, however, there areas of hypoenhancement within the pancreatic tail suggesting possible areas of necrosis. Peripancreatic stranding is again noted and appears more prominent on today's imaging. No well-defined peripancreatic fluid collection identified. The spleen and adrenal glands are unremarkable. Symmetrically enhancing kidneys. There is no hydronephrosis of either kidney. The stomach is decompressed. Normal caliber loops of small and large bowel. Interval development of mild ascites within the abdomen and pelvis. Normal caliber abdominal aorta. No retroperitoneal lymphadenopathy. Small fat-containing umbilical hernia is unchanged. Evaluation of pelvis is limited secondary to streak artifact from right hip prosthesis. The bladder appears normally distended. The prostate gland appears normal in size. No gross inguinal lymphadenopathy. Moderate diffuse degenerative changes of the spine. CT/CT abdomen pelvis w IV con IMPRESSION: 1. Interval increase in peripancreatic stranding suggesting worsening in pancreatitis. There are now areas of hypoenhancement within the pancreatic tail suggesting possible areas of necrosis. No well-defined peripancreatic fluid collection identified. 2. Interval development of mild ascites within the abdomen and pelvis. 3. Small left and tiny right-sided pleural effusions. Fleischner guidelines were followed.
--- NOTE | ~2022-01-29 | CT_ITS ---
EXAMINATION: CT ABDOMEN AND PELVIS WITH CONTRAST CLINICAL INFORMATION: ? Pancreatitis, PAIN COMPARISON: 08/05/2021 TECHNIQUE: Multidetector volumetric images were obtained from the superior aspect of the liver through the pubic symphysis following administration 100 mL of Omnipaque 350 intravenous contrast. Sagittal and coronal reformatted images were obtained on the technologist's workstation. Oral contrast: No This CT examination was performed using dose optimization techniques as appropriate, variously including the following: *Automated exposure control *Adjustment of mA and/or kV according to patient size (this includes techniques or standardized protocols for targeted exams where dose is matched to indication/reason for exam; i.e. extremities or head) *Use of iterative reconstruction technique DLP: 830 mGy-cm FINDINGS: LUNG BASES: Mild dependent atelectasis. LIVER, GALLBLADDER, AND BILIARY TREE: The liver is normal in size, shape, and attenuation. No focal hepatic lesion or biliary ductal dilatation is present. The gallbladder is unremarkable with no evidence of radiopaque gallstones, gallbladder wall thickening, or obvious pericholecystic inflammatory changes. PANCREAS: There is significant peripancreatic fat stranding, somewhat more pronounced as compared to the prior study. No discrete organized peripancreatic fluid collections are identified. Pancreatic parenchyma enhances appropriately without focal areas of hypoattenuation to suggest necrosis. No appreciable pancreatic ductal dilatation. No pancreatic calcifications. Multiple small peripancreatic lymph nodes are again noted SPLEEN: Unremarkable. ADRENAL GLANDS: Unremarkable. KIDNEYS AND URETERS: The kidneys are normal in size, shape, and attenuation. No hydronephrosis, hydroureter, or calculi seen. No perinephric stranding. BLADDER: Unremarkable. GASTROINTESTINAL TRACT: There is secondary inflammation of the posterior aspect of the gastric antrum by the inflammatory changes in the pancreas. Stomach, small bowel, and colon are normal in caliber. No areas of bowel wall thickening. No intraperitoneal free air or intraperitoneal free fluid. Normal appendix. ABDOMINAL WALL: Small fat-containing umbilical hernia. No bowel involvement. Postsurgical changes of prior bilateral inguinal hernia repairs. LYMPH NODES: Numerous subcentimeter retroperitoneal and peripancreatic lymph node, likely reactive in nature. VASCULAR: Calcific atherosclerosis in the abdominal aorta and iliac arteries. No aneurysmal dilatation. The portal venous system is patent. PELVIC VISCERA: The prostate and seminal vesicles are unremarkable. OSSEOUS STRUCTURES: Diffuse idiopathic skeletal hyperostosis in the thoracic spine with confluent, bridging osteophytes. Status post right total hip arthroplasty without appreciable complications. No acute osseous findings. Mild degenerative spondylosis in the lumbar spine. CT/CT abdomen pelvis w IV con IMPRESSION: Acute interstitial edematous pancreatitis, slightly more pronounced as compared to prior. No peripancreatic fluid collections or appreciable ductal dilatation. Fleischner guidelines were followed.
--- NOTE | ~2022-01-29 | US_ITS ---
EXAMINATION: US VENOUS WITH DOPPLER UPPER EXTREMITY, LEFT CLINICAL INFORMATION: Pain. COMPARISON: None TECHNIQUE: Ultrasound of the upper extremity is performed using compression sonography and color and pulse Doppler flow with assessment of augmentation of flow. There is also imaging and Doppler assessment of the jugular and subclavian veins. Spectral analysis with color-flow imaging is performed. FINDINGS: Respiratory variation, normal compression, and augmented flow are noted throughout the upper extremity including the axillary, brachial, cubital, and radial and ulnar veins. There is normal flow in the internal jugular and subclavian veins. There is no visible deep or superficial thrombophlebitis. If the patient's symptoms progress, a followup ultrasound in 5 -7 days might be of value to exclude proximal propagation from a nonvisualized distal arm vein. US/US venous duplex UE LT IMPRESSION: No DVT demonstrated in the left upper extremity
--- NOTE | ~2022-01-29 | CT_ITS ---
EXAMINATION: CT ABDOMEN AND PELVIS WITH CONTRAST CLINICAL INFORMATION: Acute pancreatitis. Rule out necrosis. COMPARISON: 02/01/2022 TECHNIQUE: Multidetector volumetric images were obtained from the superior aspect of the liver through the pubic symphysis following administration 85 mL of Omnipaque 350 intravenous contrast. Sagittal and coronal reformatted images were obtained on the technologist's workstation. Oral contrast: No This CT examination was performed using dose optimization techniques as appropriate, variously including the following: *Automated exposure control *Adjustment of mA and/or kV according to patient size (this includes techniques or standardized protocols for targeted exams where dose is matched to indication/reason for exam; i.e. extremities or head) *Use of iterative reconstruction technique DLP: 470 mGy-cm FINDINGS: LUNG BASES: The visualized lung bases are unremarkable. LIVER, GALLBLADDER, AND BILIARY TREE: The liver is normal in size, shape, and attenuation. No focal hepatic lesion or biliary ductal dilatation is present. The gallbladder is unremarkable with no evidence of radiopaque gallstones, gallbladder wall thickening, or obvious pericholecystic inflammatory changes. PANCREAS: Prominent inflammatory stranding surrounds the pancreatic parenchyma, as seen on prior. Once again there is an area of hypoattenuation in the parenchyma at the pancreatic tail. This measures up to 3.2 cm. This is concerning for an area of necrosis. There is no new hypoattenuation. The extent of inflammation surrounding the pancreas is similar to previous. There is no formed fluid collection at this time. Fluid does track along the greater curvature of the stomach near the fundus. There is also inflammation which appears increased in the retroperitoneal region superior to the celiac axis. SPLEEN: Normal size spleen. Of note, the splenic vein is not visualized. This is similar to prior. This is likely chronic as there appears to be small varices in the left upper quadrant leading from the splenic hilum. ADRENAL GLANDS: Unremarkable. KIDNEYS AND URETERS: The kidneys are normal in size, shape, and attenuation. No hydronephrosis, hydroureter, or calculi seen. No perinephric stranding. BLADDER: Limited evaluation due to artifact from hip arthroplasty hardware. No gross abnormality. GASTROINTESTINAL TRACT: The stomach is unremarkable. Normal caliber small bowel. No obstruction. Normal appendix. No colonic wall thickening or acute inflammation. No free air. ABDOMINAL WALL: No abdominal wall hernia. Prior bilateral inguinal hernia repair. LYMPH NODES: Mildly prominent retroperitoneal lymph nodes are similar to prior. VASCULAR: Normal caliber aorta with mild atherosclerotic calcification. PELVIC VISCERA: Evaluation limited due to artifact from hip arthroplasty hardware. Normal sized prostate. OSSEOUS STRUCTURES: No acute or suspicious osseous abnormality. Total right hip arthroplasty appears intact. Degenerative change throughout the spine. CT/CT abdomen pelvis w IV con IMPRESSION: 1. Similar appearance of the pancreatic parenchyma with prominent inflammatory changes surrounding the pancreas. There is again an area of hypoattenuation at the pancreatic tail which is concerning for necrosis. There is no formed fluid collection at this time. 2. 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 This is similar to prior. 3. Mildly prominent retroperitoneal lymph nodes are likely reactive. Fleischner guidelines were followed.
[2022-01-29 22:03] VITALS: BP 106/65; PULSE 91; RESP 18; TEMP 36.5; O2SAT 97; BMI 30.4
--- NOTE | 2022-01-29 22:21 | ED_ITS ---
HPI - Abdominal Pain General Chief Complaint: Abdominal Pain Stated Complaint: Left Side Hip Pain for a few weeks/fall Time Seen by Provider: 01/29/22 22:13 Source: patient and EMS Limitations: no limitations History of Present Illness HPI narrative: 51 yo presented c/o abdominal pain and left hip pain,he has hx of pancreatitis/alcohol abuse,left hip DJD Onset (ago): week(s) (1) Pain Consistency: constant Location: epigastric Severity: moderate Quality: cramping Radiation: epigastric Migration to: no migration Exacerbating factors: nothing Relieving factors: nothing Associated symptoms: nausea and vomiting Related Data Home Medications Medication Instructions Recorded Confirmed metoprolol succinate 50 mg 50 mg PO DAILY 02/27/20 08/05/21 tablet,extended release 24 hr quetiapine 300 mg tablet 300 mg PO BEDTIME 02/27/20 08/05/21 trazodone 150 mg tablet 150 mg PO BEDTIME 02/27/20 08/05/21 empagliflozin 25 mg tablet 25 mg PO DAILY 05/22/20 08/05/21 (Jardiance) lisinopril 10 mg tablet 1 tab PO DAILY 11/04/20 08/05/21 sertraline 100 mg tablet 1 tab PO DAILY 06/23/21 08/05/21 Previous Rx's Medication Instructions Recorded folic acid 1 mg tablet 1 mg PO DAILY #30 tabs 05/26/20 thiamine mononitrate (vit B1) 100 100 mg PO DAILY #30 tabs 05/26/20 mg tablet ondansetron 4 mg disintegrating 4 mg PO Q8H PRN nausea and 06/10/21 tablet vomiting #20 tabs fenofibrate nanocrystallized 145 145 mg PO DAILY #30 tabs 11/19/21 mg tablet (Tricor) oxycodone 5 mg tablet 5 mg PO Q6H PRN Pain, Moderate #20 11/19/21 tabs Allergies Allergy/AdvReac Type Severity Reaction Status Date / Time No Known Allergies Allergy Verified 11/18/21 20:28 [No Known Allergies*] Review of Systems Eyes: Reports no additional eye complaints Cardiovascular: Reports no additional cardiovascular complaints Respiratory: Reports no additional respiratory complaints Gastrointestinal: Reports abdominal pain PMFSH Past Medical History Medical History Alcohol abuse Alcohol withdrawal Arthritis Cocaine abuse Cocaine abuse Diabetes mellitus Duodenitis Hypertension Pancreatitis Seizures Surgical History H/O hernia repair Family History Family History Other CAD (coronary artery disease) Diabetes mellitus Social History Social History Household Members: None Housing: Apartment Do you presently have visiting nurse or other home services: No Alcohol intake: current Alcohol intake frequency: a few times a week Alcohol type: beer Patient Tobacco Use Status: Never used Tobacco Second Hand Smoke Exposure: No Substance Use Type: Prescription Drugs Advance Directives: No Advance Directives Information Provided: No Advance Directives Date on File: 02/27/20 service: No Current occupational status: disabled Physical Exam ED Vital Signs: Vital Signs - 24 hr 01/29/22 22:03 01/30/22 00:22 Temperature 97.7 F Pulse Rate 91 67 Respiratory Rate 18 20 Blood Pressure 106/65 146/86 H Pulse Oximetry 97 97 Oxygen Delivery Method Room Air Room Air BMI result Body Mass Index 30.4 Const General: cooperative, well developed and alert Nutritional Appearance: well nourished Orientation/consciousness: patient oriented x3 HENMT Head: Yes normal to inspection Face and sinus: Yes normal facial exam Mouth: Normal oral and palatal mucosa present Throat: Yes posterior oropharynx normal Neck Neck: Yes normal visual inspection Chest Chest palpation & inspection: normal inspection of the chest Resp Effort & Inspection: normal respiratory effort and able to speak in complete sentences Auscultation: clear to auscultation bilaterally Cardio Jugular venous distension: no JVD Rate: regular rate Rhythm: regular rhythm GI Inspection: Yes normal to inspection Palpation (GI): Tenderness to palpation present (GI) Skin General skin exam: no rashes or lesions noted Lesions: no lesions Rashes: no rashes Neuro General: patient oriented x3 Cranial nerves: Yes CN's II-XII intact bilaterally Course Reevaluation(s) Reevaluation #1: improving Time: 23:57 Medical Decision Making Medical Decision Making MDM Narrative: Pt with history of pancreatitis presented complaining of abdominal pain left hip pain ,will place an IV hydrated the patient administer an analgesia labs CT and reassessed Differential Diagnosis pancreatitis/ SBO/Colitis Lab Data MDM Lab Attestation statement: I reviewed the patient's lab results. Result Diagrams: 01/29/22 22:31 01/29/22 22:31 Labs: Lab Results 01/29/22 01/29/22 01/29/22 Range/Units 22:31 22:31 22:31 WBC 6.1 (4.8-10.8) X10*3/uL RBC 4.26 L (4.60-5.80) X10*6/uL Hgb 13.6 L (14.0-18.0) g/dl Hct 39.4 L (42.0-52.0) % MCV 92.5 (80.0-98.0) fL MCH 31.9 (27.0-33.0) pg MCHC 34.5 (31.0-36.0) g/dl RDW 11.4 (11.0-16.0) % Plt Count 224 (160-400) X10*3/uL MPV 9.1 L (9.4-12.4) fL Immature Gran % (Auto) 2.0 H (0.0-0.4) % Neut % (Auto) 47.6 (45-73) % Lymph % (Auto) 36.6 (20-40) % [place] % (Auto) 8.6 (2-11) % Eos % (Auto) 4.2 H (0-4) % Baso % (Auto) 1.0 (0-2) % Lymph # (Auto) 2.3 (1.2-4.9) X10*3/uL [place] # (Auto) 0.5 (0.1-1.2) X10*3/uL Eos # (Auto) 0.3 (0.0-0.4) X10*3/uL Baso # (Auto) 0.1 (0.0-0.2) X10*3/uL Abs Immat Gran (auto) 0.12 H (0.00-0.03) X10*3/uL Absolute Neuts (auto) 2.9 (2.0-8.3) x10*3/uL Absolute Nucleated RBC 0.000 (0.0-0.012) X10*3/uL Nucleated RBC % (auto) 0.0 (0.0-0.2) /100WBC Sodium 137 (135-145) mmol/L Potassium 4.3 (3.3-5.1) mmol/L Chloride 104 (96-108) mmol/L Carbon Dioxide 22 (22-29) mmol/L Anion Gap 15 (12-20) BUN 14 (9-16) mg/dL Creatinine 0.84 (0.5-1.4) mg/dL Estim Creat Clear Calc 111.2 Estimated GFR > 60 Random Glucose 224 H (60-115) mg/dL Calcium 9.0 D (8.4-10.2) mg/dL AST 25 (5-37) U/L ALT 25 (0-40) U/L Alkaline Phosphatase 63 D (39-117) U/L Total Protein 7.0 (6.5-8.0) g/dL Albumin 4.3 (3.5-5.0) g/dL Lipase 1397 H (8-78) U/L Ethyl Alcohol 115 mg/dL Radiology Impression Discussion of test interpretation with radiology: I have reviewed the radiologist's reading. Radiologist Impression: he inflammatory changes in the pancreas. Stomach, small bowel, and colon are normal in caliber. No areas of bowel wall thickening. No intraperitoneal free air or intraperitoneal free fluid. Normal appendix.? ABDOMINAL WALL: Small fat-containing umbilical hernia. No bowel involvement. Postsurgical changes of prior bilateral inguinal hernia repairs.? LYMPH NODES: Numerous subcentimeter retroperitoneal and peripancreatic lymph node, likely reactive in nature. VASCULAR: Calcific atherosclerosis in the abdominal aorta and iliac arteries. No aneurysmal dilatation. The portal venous system is patent. PELVIC VISCERA: The prostate and seminal vesicles are unremarkable.? OSSEOUS STRUCTURES: Diffuse idiopathic skeletal hyperostosis in the thoracic spine with confluent, bridging osteophytes. Status post right total hip arthroplasty without appreciable complications. No acute osseous findings. Mild degenerative spondylosis in the lumbar spine.? CT/CT abdomen pelvis w IV con IMPRESSION: Acute interstitial edematous pancreatitis, slightly more pronounced as compared to prior. No peripancreatic fluid collections or appreciable ductal dilatation. ? Fleischner guidelines were followed. Medications Administered Generic Name Dose Route Start Last Admin Trade Name Freq PRN Reason Stop Dose Admin Sodium Chloride 1,000 mls @ 999 mls/hr 01/30/22 00:30 01/30/22 00:34 Ns IVCONT 01/30/22 01:30 999 mls/hr .Q1H1M SHAGGY Administration Discontinued Medications Generic Name Dose Route Start Last Admin Trade Name Freq PRN Reason Stop Dose Admin Hydromorphone HCl 0.5 mg 01/29/22 22:18 01/29/22 22:35 Hydromorphone Hcl 0.5 Mg/0.5 Ml Syringe IVPUSH 01/29/22 22:19 0.5 mg ONCE ONE Administration Protocol Hydromorphone HCl 0.5 mg 01/30/22 00:15 01/30/22 00:26 Hydromorphone Hcl 0.5 Mg/0.5 Ml Syringe IVPUSH 01/30/22 00:16 0.5 mg ONCE ONE Administration Protocol Sodium Chloride 1,000 mls @ 999 mls/hr 01/29/22 22:30 01/29/22 22:37 Ns IVCONT 01/29/22 23:30 999 mls/hr .Q1H1M SHAGGY Administration Sodium Chloride 1,000 mls @ 999 mls/hr 01/29/22 22:30 01/29/22 22:53 Ns IVCONT 01/29/22 23:30 999 mls/hr .Q1H1M SHAGGY Administration Iohexol 100 ml 01/30/22 00:10 01/30/22 00:11 Iohexol 350 Mg/Ml 100 Ml Infus..Btl IV 01/30/22 00:11 100 ml ONCE ONE Administration Lorazepam 1 mg 01/29/22 22:18 01/29/22 22:36 Lorazepam 2 Mg/Ml Vial IVPUSH 01/29/22 22:19 1 mg ONCE ONE Administration Discharge Plan Discharge Clinical Impression: Acute pancreatitis Patient Disposition: Admitted As Inpatient
[2022-01-29 22:35] LABS: MANUAL DIFF FLAG NO
[2022-01-29] MEDS: HYDROmorphone HCl 0.5 MG/0.5 ML SYRINGE IVPUSH (22:35)
[2022-01-29 22:36] LABS: Basophils Absolute Auto 0.1 X10*3/uL (0.0-0.2); Eosinophils Absolute Auto 0.3 X10*3/uL (0.0-0.4); Eosinophils Percent Auto 4.2 % (0-4); Hematocrit 39.4 % (42.0-52.0); Hemoglobin 13.6 g/dl (14.0-18.0); Imm Gran Abs Auto 0.12 X10*3/uL (0.00-0.03); Lymphocytes Absolute Auto 2.3 X10*3/uL (1.2-4.9); Lymphocytes Percent Auto 36.6 % (20-40); Mean Corpuscular HGB Conc 34.5 g/dl (31.0-36.0); Mean Corpuscular Hemoglobin 31.9 pg (27.0-33.0); Mean Corpuscular Volume 92.5 fL (80.0-98.0); Mean Platelet Volume 9.1 fL (9.4-12.4); Monocytes Absolute Auto 0.5 X10*3/uL (0.1-1.2); Monocytes Percent Auto 8.6 % (2-11); Neutrophils Absolute Auto 2.9 x10*3/uL (2.0-8.3); Neutrophils Percent Auto 47.6 % (45-73); Platelet Count 224 X10*3/uL (160-400); Red Blood Count 4.26 X10*6/uL (4.60-5.80); Red Cell Distribution Width 11.4 % (11.0-16.0); White Blood Count 6.1 X10*3/uL (4.8-10.8)
[2022-01-29] MEDS: LORazepam 2 MG/ML VIAL 1 MG IVPUSH (22:36)
[2022-01-29] MEDS: 0.9 % Sodium Chloride 1,000 ML 999 ML IVCONT ×2 (22:37→22:53)
[2022-01-29 22:56] LABS: Alanine Aminotransferase 25 U/L (0-40); Albumin Level 4.3 g/dL (3.5-5.0); Alkaline Phosphatase 63 U/L (39-117); Anion Gap 15 (12-20); Aspartate Amino Transferase 25 U/L (5-37); Blood Urea Nitrogen 14 mg/dL (9-16); Carbon Dioxide 22 mmol/L (22-29); Chloride 104 mmol/L (96-108); Creatinine Clr Calc Pharmacy 111.2; Estimated Glomerular Filt Rate > 60; Ethanol 115 mg/dL; Glucose Random 224 mg/dL (60-115); Potassium 4.3 mmol/L (3.3-5.1); Sodium 137 mmol/L (135-145)
[2022-01-29 23:15] LABS: Lipase 1397 U/L (8-78)
--- NOTE | 2022-01-29 23:29 | PC.NURSE ---
Upon arrival to room, pt. reporting severe pain 11/24. Pt. was moaning and restless in bed. IV placed and pt. medicated per APR. Pt. now sleeping in room under no apparent distress.
[2022-01-30] VITALS (10 sets, daily range): BP systolic 146–210; BP diastolic 79–115; PULSE 67–88; RESP 16–20; TEMP 36–36.4; O2SAT 96–98
[2022-01-30] MEDS: iohexoL 350 MG/ML 100 ML INFUS..BTL IV (00:11)
[2022-01-30] MEDS: HYDROmorphone HCl 0.5 MG/0.5 ML SYRINGE IVPUSH (00:26)
[2022-01-30] MEDS: 0.9 % Sodium Chloride 1,000 ML 999 ML IVCONT (00:34)
[2022-01-30 01:16] LABS: Bilirubin Total 0.5 mg/dL (0.0-1.0)
[2022-01-30 01:45] LABS: Triglycerides 341 mg/dL
[2022-01-30 01:52] LABS: COVID-19 Test Negative (Negative); IDNOW Serial# BCCEAD1C
[2022-01-30] MEDS: Lactated Ringers 1,000 ML 200 ML IVCONT (02:19)
[2022-01-30] MEDS: HYDROmorphone HCl 1 MG/ML SYRINGE 0.5 MG IVPUSH ×3 (02:20→11:14)
[2022-01-30] MEDS: ondansetron HCL 4 MG/2 ML VIAL IVPUSH (02:21)
--- NOTE | 2022-01-30 03:38 | PC.NURSE ---
Pt. currently sleeping after being medicated with dilaudid per MAR for pain. Pt. has a room, 368 on med-surge. Called to give report. Floor RN will return call shortly.
[2022-01-30] MEDS: Morphine Sulfate 4 MG/ML CARTRIDGE IVPUSH ×3 (04:58→12:29)
--- NOTE | 2022-01-30 06:12 | PM.IMHP ---
History of Present Illness Date of Service: 01/30/22 Chief Complaint: abdominal pain 51-year-old male with past medical history of alcohol abuse, diabetes, history of pancreatitis, hypertension, as well as seizure presents to the hospital with complaints of epigastric abdominal pain that started the day presentation. Reports pain is radiating to the back, pain is 10/10, associated with nausea vomiting, no diarrhea, reports alcohol abuse drinks daily. No history of withdrawal. Reports no chest pain, no shortness of breath, no fever or chills, no urinary symptoms and no lower extremity edema. No diarrhea constipation. No numbness tingling or weakness. On arrival to the ED hemodynamically stable with no significant abnormal vitals labs are significant for WBC of 6.1, hemoglobin 13.6, hematocrit 39.4, triglyceride in the 300s labs otherwise unremarkable abdomen pelvic CT shows acute pancreatitis, no peripancreatic fluid collection Review of Systems Review of Systems: Yes all other systems are reviewed and are negative [facility] Medical History Alcohol abuse Alcohol withdrawal Arthritis Cocaine abuse Cocaine abuse Diabetes mellitus Duodenitis Hypertension Pancreatitis Seizures Family History Other CAD (coronary artery disease) Diabetes mellitus Surgical History H/O hernia repair Social History Household Members: None Housing: House Do you presently have visiting nurse or other home services: No Alcohol intake: current Alcohol intake frequency: a few times a week Alcohol type: beer Patient Tobacco Use Status: Never used Tobacco Second Hand Smoke Exposure: No Use of substances other than those prescribed or required for medical reasons: No Substance Use Type: Prescription Drugs Have you been hit, kicked, punched, or otherwise hurt by someone within the past year? If so, by whom?: No Do you feel safe in your current relationship?: No Current Relationship Is there a partner from a previous relationship who is making you feel unsafe now?: No Are you made to feel afraid or neglected: No Advance Directives: No Advance Directives Information Provided: No Advance Directives Date on File: 02/27/20 Do you have thoughts of harming others: None Do you have a plan to hurt others: No Plan Recently lost weight without trying: No Nutrition Risks: No Nutritional Risk Poor oral hygiene: No service: No Current occupational status: disabled Meds Allergies Allergy/AdvReac Type Severity Reaction Status Date / Time No Known Allergies Allergy Verified 11/18/21 20:28 [No Known Allergies*] Active Medications: Current Medications Enoxaparin Sodium (Enoxaparin Sodium 40 Mg/0.4 Ml Syringe) 40 mg SUBCUT Q24H [facility] Hydromorphone HCl (Hydromorphone Hcl 1 Mg/Ml Syringe) 0.5 mg IVPUSH Q4H PRN; Protocol PRN Reason: Pain, Severe (Pain Scale 7-10) Last Admin: 01/30/22 02:20 Dose: 0.5 mg Lactated Ringer's (Lr) 1,000 mls @ 200 mls/hr IVCONT .Q5H [facility] Last Admin: 01/30/22 02:19 Dose: 200 mls/hr Morphine Sulfate (Morphine Sulfate 4 Mg/Ml Cartridge) 4 mg IVPUSH Q3H PRN; Protocol PRN Reason: Pain, Moderate (Pain Scale 4-6 Last Admin: 01/30/22 04:58 Dose: 4 mg Ondansetron HCl (Ondansetron Hcl 4 Mg/2 Ml Vial) 4 mg IVPUSH Q8H PRN PRN Reason: Nausea and Vomiting Last Admin: 01/30/22 02:21 Dose: 4 mg Sodium Chloride (0.9 % Sodium Chloride Flush 3 Ml Syringe) 3 ml IVFLUSH [facility] Home Medications Medication Instructions Recorded Confirmed Last Taken Type metoprolol succinate 50 mg 50 mg PO DAILY 02/27/20 01/30/22 08/05/21 History tablet,extended release 24 hr quetiapine 300 mg tablet 300 mg PO BEDTIME 02/27/20 01/30/22 08/04/21 History trazodone 150 mg tablet 150 mg PO BEDTIME 02/27/20 01/30/22 08/04/21 History empagliflozin 25 mg tablet 25 mg PO DAILY 05/22/20 01/30/22 08/05/21 History (Jardiance) lisinopril 10 mg tablet 1 tab PO DAILY 11/04/20 01/30/22 08/05/21 History sertraline 100 mg tablet 1 tab PO DAILY 06/23/21 01/30/22 08/05/21 History Physical Exam Vital Signs and Narrative: Vital Signs: Last Vital Signs Temp 97 F 01/30/22 04:00 Pulse 80 01/30/22 04:00 Resp 18 01/30/22 04:00 BP 160/82 H 01/30/22 04:00 Pulse Ox 96 01/30/22 04:00 O2 Del Method 01/30/22 04:00 BMI result Body Mass Index 30.4 Const: General: cooperative and no acute distress Orientation/consciousness: patient oriented x3 Eyes: General: appearance normal, both eyes and all related structures Resp: Effort & Inspection: normal respiratory effort Auscultation: clear to auscultation bilaterally Cardio: Rate: regular rate Rhythm: regular rhythm GI: Other: significant tenderness on palpation of the epigastric region, there is rebound and guarding Palpation (GI): Soft to palpation Auscultation: normal bowel sounds Skin: General skin exam: no rashes or lesions noted Neuro: General: patient oriented x3 Cognition (Neuro): normal cognition Extrem: General: Yes normal to inspection and Yes no pedal edema Results Labs CBC and Chem 7: 01/29/22 22:31 01/29/22 22:31 Labs: Laboratory Results - last 24 hr 01/29/22 01/29/22 01/29/22 22:31 22:31 22:31 MCV 92.5 MCH 31.9 MCHC 34.5 RDW 11.4 Plt Count 224 MPV 9.1 L Immature Gran % (Auto) 2.0 H Neut % (Auto) 47.6 Lymph % (Auto) 36.6 [place] % (Auto) 8.6 Eos % (Auto) 4.2 H Baso % (Auto) 1.0 Lymph # (Auto) 2.3 [place] # (Auto) 0.5 Eos # (Auto) 0.3 Baso # (Auto) 0.1 Abs Immat Gran (auto) 0.12 H Absolute Neuts (auto) 2.9 Absolute Nucleated RBC 0.000 Nucleated RBC % (auto) 0.0 Anion Gap 15 Estim Creat Clear Calc 111.2 Estimated GFR > 60 Random Glucose 224 H Calcium 9.0 D Total Bilirubin 0.5 AST 25 ALT 25 Alkaline Phosphatase 63 D Total Protein 7.0 Albumin 4.3 Triglycerides 341 Lipase 1397 H Ethyl Alcohol 115 COVID-19 (BUD) COVID-19 Clin Com 01/30/22 01:34 MCV MCH MCHC RDW Plt Count MPV Immature Gran % (Auto) Neut % (Auto) Lymph % (Auto) [place] % (Auto) Eos % (Auto) Baso % (Auto) Lymph # (Auto) [place] # (Auto) Eos # (Auto) Baso # (Auto) Abs Immat Gran (auto) Absolute Neuts (auto) Absolute Nucleated RBC Nucleated RBC % (auto) Anion Gap Estim Creat Clear Calc Estimated GFR Random Glucose Calcium Total Bilirubin AST ALT Alkaline Phosphatase Total Protein Albumin Triglycerides Lipase Ethyl Alcohol COVID-19 (BUD) Negative COVID-19 Clin Com See Note Imaging Radiologist's Impressions: Impressions Abdomen/Pelvis CT 01/30/22 00:13 IMPRESSION: Acute interstitial edematous pancreatitis, slightly more pronounced as compared to prior. No peripancreatic fluid collections or appreciable ductal dilatation. Fleischner guidelines were followed. Assessment and Plan (1) Acute pancreatitis: Status: Acute (2) History of alcohol abuse: Status: Acute Plan 51-year-old male with past medical history of alcohol abuse,diabetes as well as pancreatitis in the past,presents to the hospital with acute pancreatitis # acute pancreatitis - CT as above, lipase positive, typical epigastric abdominal pain - likely secondary to alcohol abuse, triglycerides less than 500 - will treat with IV fluids, NPO - monitor for symptom resolution # history of alcohol abuse - drinks about 6 beers a day - currently not in withdrawal - will place on CIWA - continue thiamine, and folic acid - monitor for withdrawal symptoms # diabetes - hold oral antihyperglycemics - Continue home insulin - will add low-dose sliding scale insulin - diabetic diet # hypertension - stable - continue home antihypertensives DVT prophylaxis: Lovenox given patient's acute pancreatitis requiring IV fluids patient will require minimum 2 night in-patient hospital stays for further management Time Spent With Patient Time: Total time managing care of this patient today ____ minutes. Quality Stroke Does the patient have a stroke diagnosis?: No VTE Prior VTE?: No VTE Risk Level:: Medical - moderate - high VTE Device Contraindication: Treatment Not Indicated VTE Drug Contraindication: N/A - Med Ordered
[2022-01-30 06:16] LABS: MANUAL DIFF FLAG NO
[2022-01-30 06:20] LABS: Basophils Absolute Auto 0.1 X10*3/uL (0.0-0.2); Basophils Percent Auto 0.5 % (0-2); Eosinophils Absolute Auto 0.1 X10*3/uL (0.0-0.4); Eosinophils Percent Auto 0.7 % (0-4); Hematocrit 39.7 % (42.0-52.0); Hemoglobin 13.5 g/dl (14.0-18.0); Imm Gran Abs Auto 0.12 X10*3/uL (0.00-0.03); Imm Gran Pct Auto 1.1 % (0.0-0.4); Lymphocytes Percent Auto 9.7 % (20-40); Mean Corpuscular Hemoglobin 31.7 pg (27.0-33.0); Mean Corpuscular Volume 93.2 fL (80.0-98.0); Mean Platelet Volume 9.2 fL (9.4-12.4); Monocytes Absolute Auto 0.6 X10*3/uL (0.1-1.2); Neutrophils Absolute Auto 8.8 x10*3/uL (2.0-8.3); Platelet Count 180 X10*3/uL (160-400); Red Blood Count 4.26 X10*6/uL (4.60-5.80); Red Cell Distribution Width 11.4 % (11.0-16.0); White Blood Count 10.7 X10*3/uL (4.8-10.8)
[2022-01-30 06:46] LABS: Anion Gap 16 (12-20); Blood Urea Nitrogen 9 mg/dL (9-16); Calcium 8.2 mg/dL (8.4-10.2); Carbon Dioxide 19 mmol/L (22-29); Chloride 105 mmol/L (96-108); Creatinine Clr Calc Pharmacy 143.7; Estimated Glomerular Filt Rate > 60; Glucose Random 178 mg/dL (60-115); Sodium 136 mmol/L (135-145)
--- NOTE | 2022-01-30 07:00 | PHA.MEDREC ---
Pharmacy Consult ? Medication Reconciliation Pharmacy has reviewed the medication reconciliation completed by Tia. There are no remarkable issues for provider's attention. Valentine Tanner, SabrinaD
[2022-01-30 07:27] LABS: Glucose, Whole Blood 182 mg/dL (60-115)
[2022-01-30] MEDS: lisinopriL 10 MG TABLET PO (07:31)
[2022-01-30] MEDS: Thiamine HCL 100 MG TABLET PO (07:31)
[2022-01-30] MEDS: Enoxaparin Sodium 40 MG/0.4 ML SYRINGE SUBCUT (07:32)
[2022-01-30] MEDS: Folic Acid 1 MG TABLET PO (07:32)
[2022-01-30] MEDS: Fenofibrate 160 MG TABLET PO (07:32)
[2022-01-30] MEDS: Metoprolol Succinate ER 50 MG TAB.ER.24H PO (07:32)
[2022-01-30] MEDS: Sertraline HCL 100 MG TABLET PO (07:32)
[2022-01-30] MEDS: Insulin Lispro 100 UNIT/ML 3 ML VIAL SUBCUT ×4 (07:33→20:32)
[2022-01-30] MEDS: 0.9 % Sodium Chloride Flush 3 ML SYRINGE IVFLUSH ×3 (08:45→20:32)
[2022-01-30] MEDS: Lactated Ringers 1,000 ML 100 ML IVCONT (08:45)
[2022-01-30] MEDS: PHENobarbitaL sodium 130 MG/ML IM ONCE 220 MG IM (08:51)
[2022-01-30 11:28] LABS: Glucose, Whole Blood 187 mg/dL (60-115)
[2022-01-30] MEDS: PHENobarbitaL sodium 130 MG/ML VIAL IM Q3Hx2 165 MG IM ×2 (12:18→16:02)
--- NOTE | 2022-01-30 13:50 | HO.PM.IMPN ---
Subjective Subjective Date of Service: 01/30/22 Interval History: seen and examined this morning follow up for pancreatitis reporting epigastric pain radiating to the back Review of Systems Review of Systems: Yes all other systems are reviewed and are negative Constitutional Constitutional: Denies chills and Denies fever(s) Cardiovascular Cardiovascular: Denies chest pain, Denies palpitations and Denies dyspnea Respiratory Respiratory: Denies cough and Denies dyspnea Gastrointestinal Gastrointestinal: Reports abdominal pain Endocrine Endocrine: Denies palpitations Physical Exam Vital Signs: Vital Signs: Last Vital Signs Temp 96.8 F 01/30/22 07:43 Pulse 84 01/30/22 12:28 Resp 18 01/30/22 12:28 BP 183/115 H 01/30/22 12:28 Pulse Ox 98 01/30/22 12:28 O2 Del Method 01/30/22 12:28 BMI result Body Mass Index 30.4 Const: General: alert and awake Nutritional Appearance: overweight Orientation/consciousness: patient oriented x3 Resp: Effort & Inspection: normal respiratory effort and able to speak in complete sentences Auscultation: clear to auscultation bilaterally Cardio: Rhythm: regular rhythm Heart sounds: S1 normal heart sound present and S2 normal heart sound present GI: Other: generalized tenderness to palpation Inspection: No distended Palpation (GI): Soft to palpation Neuro: General: patient oriented x3 and CN's II-XI intact bilaterally Extrem: General: Yes no pedal edema Objective Data Active Medications Dextrose (Dextrose 50 % 25 Gm/50 Ml Syringe) 25 gm IVPUSH Q15M PRN; Protocol PRN Reason: per Hypoglycemia Standing Ord. Enoxaparin Sodium (Enoxaparin Sodium 40 Mg/0.4 Ml Syringe) 40 mg SUBCUT Q24H [facility] Last Admin: 01/30/22 07:32 Dose: 40 mg Documented By: TJ Fenofibrate (Fenofibrate 160 Mg Tablet) 160 mg PO DAILY [facility] Last Admin: 01/30/22 07:32 Dose: 160 mg Documented By: TJ Folic Acid (Folic Acid 1 Mg Tablet) 1 mg PO DAILY [facility] Last Admin: 01/30/22 07:32 Dose: 1 mg Documented By: TJ Glucose (Glucose Gel 15 Gm Gel..Gram.) 15 gm PO Q15M PRN; Protocol PRN Reason: per Hypoglycemia Standing Ord. Hydromorphone HCl (Hydromorphone Hcl 1 Mg/Ml Syringe) 0.5 mg IVPUSH Q4H PRN; Protocol PRN Reason: Pain, Severe (Pain Scale 7-10) Last Admin: 01/30/22 11:14 Dose: 0.5 mg Documented By: TJ Lactated Ringer's (Lr) 1,000 mls @ 200 mls/hr IVCONT .Q5H [facility] Last Admin: 01/30/22 08:45 Dose: 100 mls/hr Documented By: TJ Insulin Human Lispro (Insulin Lispro 100 Unit/Ml 3 Ml Vial) 0 unit SUBCUT QIDACHS [facility]; Protocol Last Admin: 01/30/22 12:19 Dose: 2 unit Documented By: TJ Lisinopril (Lisinopril 10 Mg Tablet) 10 mg PO DAILY [facility]; Protocol Last Admin: 01/30/22 07:31 Dose: 10 mg Documented By: TJ Metoprolol Succinate (Metoprolol Succinate Er 50 Mg Tab.Er.24h) 50 mg PO DAILY [facility]; Protocol Last Admin: 01/30/22 07:32 Dose: 50 mg Documented By: TJ Morphine Sulfate (Morphine Sulfate 4 Mg/Ml Cartridge) 4 mg IVPUSH Q3H PRN; Protocol PRN Reason: Pain, Moderate (Pain Scale 4-6 Last Admin: 01/30/22 12:29 Dose: 4 mg Documented By: TJ Ondansetron HCl (Ondansetron Hcl 4 Mg/2 Ml Vial) 4 mg IVPUSH Q8H PRN PRN Reason: Nausea and Vomiting Last Admin: 01/30/22 02:21 Dose: 4 mg Documented By: PAULA Pharmacy Consult (Consult Rx Etoh Phenob Im/Po) 1 each MISCELLANE ONCE PRN; Protocol PRN Reason: Consult order Phenobarbital (Phenobarbital 15 Mg Tablet) 45 mg PO BID [facility]; Protocol Stop: 02/01/22 09:01 Phenobarbital (Phenobarbital 30 Mg Tablet) 30 mg PO BID [facility]; Protocol Stop: 02/03/22 09:01 Phenobarbital (Phenobarbital 30 Mg Tablet) 30 mg PO Q24H [facility]; Protocol Stop: 02/04/22 21:01 Phenobarbital Sodium (Phenobarbital Sodium 130 Mg/Ml Vial Im Q3hx2) 165 mg IM Q3H [facility]; Protocol Stop: 01/30/22 15:01 Last Admin: 01/30/22 12:18 Dose: 165 mg Documented By: TJ Quetiapine Fumarate (Quetiapine Fumarate 300 Mg Tablet) 300 mg PO BEDTIME [facility] Sertraline HCl (Sertraline Hcl 100 Mg Tablet) 100 mg PO DAILY [facility] Last Admin: 01/30/22 07:32 Dose: 100 mg Documented By: TJ Sodium Chloride (0.9 % Sodium Chloride Flush 3 Ml Syringe) 3 ml IVFLUSH QSHIFT [facility] Last Admin: 01/30/22 08:45 Dose: 3 ml Documented By: TJ Thiamine HCl (Thiamine Hcl 100 Mg Tablet) 100 mg PO DAILY [facility] Last Admin: 01/30/22 07:31 Dose: 100 mg Documented By: TJ Trazodone HCl (Trazodone Hcl 50 Mg Tablet) 150 mg PO BEDTIME [facility] Labs CBC & Chem 7: 01/30/22 05:53 01/30/22 05:53 Labs: Laboratory Results - last 24 hr 01/29/22 01/29/22 01/29/22 22:31 22:31 22:31 MCV 92.5 MCH 31.9 MCHC 34.5 RDW 11.4 Plt Count 224 MPV 9.1 L Immature Gran % (Auto) 2.0 H Neut % (Auto) 47.6 Lymph % (Auto) 36.6 [place] % (Auto) 8.6 Eos % (Auto) 4.2 H Baso % (Auto) 1.0 Lymph # (Auto) 2.3 [place] # (Auto) 0.5 Eos # (Auto) 0.3 Baso # (Auto) 0.1 Abs Immat Gran (auto) 0.12 H Absolute Neuts (auto) 2.9 Absolute Nucleated RBC 0.000 Nucleated RBC % (auto) 0.0 Anion Gap 15 Estim Creat Clear Calc 111.2 Estimated GFR > 60 POC Glucose Random Glucose 224 H Calcium 9.0 D Total Bilirubin 0.5 AST 25 ALT 25 Alkaline Phosphatase 63 D Total Protein 7.0 Albumin 4.3 Triglycerides 341 Lipase 1397 H Ethyl Alcohol 115 COVID-19 (BUD) COVID-19 Clin Com 01/30/22 01/30/2201/30/22 01:34 05:53 05:53 MCV 93.2 MCH 31.7 MCHC 34.0 RDW 11.4 Plt Count 180 MPV 9.2 L Immature Gran % (Auto) 1.1 H Neut % (Auto) 82.0 H Lymph % (Auto) 9.7 L [place] % (Auto) 6.0 Eos % (Auto) 0.7 Baso % (Auto) 0.5 Lymph # (Auto) 1.0 L [place] # (Auto) 0.6 Eos # (Auto) 0.1 Baso # (Auto) 0.1 Abs Immat Gran (auto) 0.12 H Absolute Neuts (auto) 8.8 H Absolute Nucleated RBC 0.000 Nucleated RBC % (auto) 0.0 Anion Gap 16 Estim Creat Clear Calc 143.7 Estimated GFR > 60 POC Glucose Random Glucose 178 H Calcium 8.2 L D Total Bilirubin AST ALT Alkaline Phosphatase Total Protein Albumin Triglycerides Lipase Ethyl Alcohol COVID-19 (BUD) Negative COVID-19 Clin Com See Note 01/30/22 01/30/22 07:22 11:23 MCV MCH MCHC RDW Plt Count MPV Immature Gran % (Auto) Neut % (Auto) Lymph % (Auto) [place] % (Auto) Eos % (Auto) Baso % (Auto) Lymph # (Auto) [place] # (Auto) Eos # (Auto) Baso # (Auto) Abs Immat Gran (auto) Absolute Neuts (auto) Absolute Nucleated RBC Nucleated RBC % (auto) Anion Gap Estim Creat Clear Calc Estimated GFR POC Glucose 182 H 187 H Random Glucose Calcium Total Bilirubin AST ALT Alkaline Phosphatase Total Protein Albumin Triglycerides Lipase Ethyl Alcohol COVID-19 (BUD) COVID-19 Clin Com Assessment and Plan (1) Acute pancreatitis: Status: Acute Plan 51-year-old male with past medical history of alcohol abuse,diabetes as well as pancreatitis in the past,presents to the hospital with acute pancreatitis acute pancreatitis likely secondary to alcohol abuse, triglycerides 341 bowel rest, NPO; IVF; Pain control Alcohol use disorder/alcohol withdrawal will start phenobarbitol continue thiamine, and folic acid addiction medicine consult diabetes hold oral antihyperglycemics SSI, POCs currently NPO for pancreatitis hypertension BP elevated, likely due to abdominal pain and etoh withdrawal continue metoprolol, lisinopril HLD continue lofibra Mood continue seroquel, zoloft denies SI at this time DVT prophylaxis: Lovenox attending - dr. hunt requires ongoing inpatient hospitalization due to acute pancreatitis, alcohol withdrawal Time Spent With Patient Time: Total time managing care of this patient today ____ minutes. Quality Stroke Does the patient have a stroke diagnosis?: No VTE Prior VTE?: No VTE Risk Level:: Medical - moderate - high VTE Device Contraindication: Treatment Not Indicated VTE Drug Contraindication: N/A - Med Ordered
--- NOTE | 2022-01-30 13:51 | MHC.CM.PN ---
Addendum entered by Melonie Crespo 01/30/22 13:56: PATIENT STATES THAT HE IS FULLY VACCINATED. A HCP IS ON FILE. Original Note: Male 51 DX Pancreatitis lives by himself. He uses a cane for unsteady gait. He is independent with all functional mobility. DP home self care. Family will provide transportation home.
[2022-01-30] MEDS: HYDROmorphone HCl 1 MG/ML SYRINGE IVPUSH ×2 (14:27→18:03)
[2022-01-30] MEDS: Famotidine/PF 20 MG/2 ML VIAL IVPUSH (14:30)
[2022-01-30 17:05] LABS: Glucose, Whole Blood 176 mg/dL (60-115)
[2022-01-30] MEDS: Morphine Sulfate 4 MG/ML CARTRIDGE 2 MG IVPUSH ×2 (17:08→21:35)
[2022-01-30] MEDS: Lactated Ringers 1,000 ML 125 ML IVCONT (18:06)
[2022-01-30] MEDS: PHENobarbitaL 15 MG TABLET 45 MG PO (20:31)
[2022-01-30] MEDS: traZODone HCL 50 MG TABLET 150 MG PO (20:32)
[2022-01-30] MEDS: QUEtiapine Fumarate 300 MG TABLET PO (20:32)
[2022-01-31] MEDS: HYDROmorphone HCl 1 MG/ML SYRINGE IVPUSH ×5 (03:12→21:00)
[2022-01-31] MEDS: Lactated Ringers 1,000 ML 125 ML IVCONT (03:21)
[2022-01-31 03:44] VITALS: BP 156/74; PULSE 90; RESP 18; TEMP 37.1; O2SAT 94
[2022-01-31] MEDS: Morphine Sulfate 4 MG/ML CARTRIDGE 2 MG IVPUSH (06:44)
[2022-01-31] MEDS: ondansetron HCL 4 MG/2 ML VIAL IVPUSH ×2 (06:44→17:25)
[2022-01-31 07:01] VITALS: BP 175/89; PULSE 97; RESP 19; TEMP 37.7; O2SAT 95
[2022-01-31 07:03] LABS: Anion Gap 14 (12-20); Blood Urea Nitrogen 3 mg/dL (9-16); Carbon Dioxide 21 mmol/L (22-29); Chloride 98 mmol/L (96-108); Creatinine Clr Calc Pharmacy 166.8; Estimated Glomerular Filt Rate > 60; Glucose Random 141 mg/dL (60-115); Potassium 3.7 mmol/L (3.3-5.1); Sodium 129 mmol/L (135-145)
[2022-01-31 07:29] LABS: Lipase 656 U/L (8-78)
[2022-01-31 07:43] LABS: Glucose, Whole Blood 197 mg/dL (60-115)
[2022-01-31] MEDS: Insulin Lispro 100 UNIT/ML 3 ML VIAL SUBCUT ×4 (07:57→21:06)
[2022-01-31] MEDS: Folic Acid 1 MG TABLET PO (07:58)
[2022-01-31] MEDS: PHENobarbitaL 15 MG TABLET 45 MG PO ×2 (07:58→21:04)
[2022-01-31] MEDS: Thiamine HCL 100 MG TABLET PO (07:58)
[2022-01-31] MEDS: Sertraline HCL 100 MG TABLET PO (07:58)
[2022-01-31] MEDS: Enoxaparin Sodium 40 MG/0.4 ML SYRINGE SUBCUT (07:58)
[2022-01-31] MEDS: lisinopriL 10 MG TABLET PO (07:58)
[2022-01-31] MEDS: Famotidine/PF 20 MG/2 ML VIAL IVPUSH (07:59)
[2022-01-31] MEDS: Fenofibrate 160 MG TABLET PO (07:59)
[2022-01-31] MEDS: Metoprolol Succinate ER 50 MG TAB.ER.24H PO (07:59)
[2022-01-31] MEDS: Lactated Ringers 1,000 ML 150 ML IVCONT ×2 (10:16→17:29)
--- NOTE | 2022-01-31 10:36 | P.PNIM_ITS ---
Subjective Subjective Date of Service: 01/31/22 Interval History: seen and examined this morning Follow-up for pancreatitis, alcohol withdrawal Patient continues to have significant generalized abdominal pain and nausea Review of Systems Review of Systems: Yes all other systems are reviewed and are negative Constitutional Constitutional: Denies chills and Denies fever(s) Cardiovascular Cardiovascular: Denies chest pain and Denies palpitations Respiratory Respiratory: Denies cough Gastrointestinal Gastrointestinal: Reports abdominal pain, Denies diarrhea and Reports nausea Endocrine Endocrine: Denies palpitations Physical Exam Vital Signs: Vital Signs: Last Vital Signs Temp 99.8 F 01/31/22 07:01 Pulse 97 01/31/22 07:01 Resp 19 01/31/22 07:01 BP 175/89 H 01/31/22 07:01 Pulse Ox 95 01/31/22 07:01 O2 Del Method 01/31/22 07:01 BMI result Body Mass Index 30.4 Const: Other: appears uncomfortable General: alert and awake Nutritional Appearance: overweight Orientation/consciousness: patient oriented x3 Resp: Effort & Inspection: normal respiratory effort and able to speak in complete sentences Auscultation: clear to auscultation bilaterally Cardio: Rhythm: regular rhythm Heart sounds: S1 normal heart sound present and S2 normal heart sound present GI: Other: generalized tenderness to palpation, guarding - exam limited by patient cooperation Inspection: No distended Palpation (GI): Soft to palpation and Tenderness to palpation present (GI) Neuro: General: patient oriented x3 and CN's II-XI intact bilaterally Extrem: General: Yes no pedal edema Objective Data Active Medications Dextrose (Dextrose 50 % 25 Gm/50 Ml Syringe) 25 gm IVPUSH Q15M PRN; Protocol PRN Reason: per Hypoglycemia Standing Ord. Enoxaparin Sodium (Enoxaparin Sodium 40 Mg/0.4 Ml Syringe) 40 mg SUBCUT Q24H [facility] Last Admin: 01/31/22 07:58 Dose: 40 mg Documented By: OSCAR Famotidine (Famotidine/Pf 20 Mg/2 Ml Vial) 20 mg IVPUSH DAILY [facility] Last Admin: 01/31/22 07:59 Dose: 20 mg Documented By: OSCAR Fenofibrate (Fenofibrate 160 Mg Tablet) 160 mg PO DAILY [facility] Last Admin: 01/31/22 07:59 Dose: 160 mg Documented By: OSCAR Folic Acid (Folic Acid 1 Mg Tablet) 1 mg PO DAILY [facility] Last Admin: 01/31/22 07:58 Dose: 1 mg Documented By: OSCAR Glucose (Glucose Gel 15 Gm Gel..Gram.) 15 gm PO Q15M PRN; Protocol PRN Reason: per Hypoglycemia Standing Ord. Hydromorphone HCl (Hydromorphone Hcl 1 Mg/Ml Syringe) 1 mg IVPUSH Q3H PRN; Protocol PRN Reason: Pain, Severe (Pain Scale 7-10) Last Admin: 01/31/22 09:51 Dose: 1 mg Documented By: OSCAR Lactated Ringer's (Lr) 1,000 mls @ 150 mls/hr IVCONT .Q6H40M [facility] Last Admin: 01/31/22 10:16 Dose: 150 mls/hr Documented By: OSCAR Insulin Human Lispro (Insulin Lispro 100 Unit/Ml 3 Ml Vial) 0 unit SUBCUT QIDACHS [facility]; Protocol Last Admin: 01/31/22 07:57 Dose: 2 unit Documented By: OSCAR Lisinopril (Lisinopril 10 Mg Tablet) 10 mg PO DAILY [facility]; Protocol Last Admin: 01/31/22 07:58 Dose: 10 mg Documented By: OSCAR Metoprolol Succinate (Metoprolol Succinate Er 50 Mg Tab.Er.24h) 50 mg PO DAILY [facility]; Protocol Last Admin: 01/31/22 07:59 Dose: 50 mg Documented By: OSCAR Ondansetron HCl (Ondansetron Hcl 4 Mg/2 Ml Vial) 4 mg IVPUSH Q8H PRN PRN Reason: Nausea and Vomiting Last Admin: 01/31/22 06:44 Dose: 4 mg Documented By: MARISABEL Pharmacy Consult (Consult Rx Etoh Phenob Im/Po) 1 each MISCELLANE ONCE PRN; Protocol PRN Reason: Consult order Phenobarbital (Phenobarbital 15 Mg Tablet) 45 mg PO BID [facility]; Protocol Stop: 02/01/22 09:01 Last Admin: 01/31/22 07:58 Dose: 45 mg Documented By: OSCAR Phenobarbital (Phenobarbital 30 Mg Tablet) 30 mg PO BID [facility]; Protocol Stop: 02/03/22 09:01 Phenobarbital (Phenobarbital 30 Mg Tablet) 30 mg PO Q24H [facility]; Protocol Stop: 02/04/22 21:01 Quetiapine Fumarate (Quetiapine Fumarate 300 Mg Tablet) 300 mg PO BEDTIME [facility] Last Admin: 01/30/22 20:32 Dose: 300 mg Documented By: MARISABEL Sertraline HCl (Sertraline Hcl 100 Mg Tablet) 100 mg PO DAILY [facility] Last Admin: 01/31/22 07:58 Dose: 100 mg Documented By: OSCAR Sodium Chloride (0.9 % Sodium Chloride Flush 3 Ml Syringe) 3 ml IVFLUSH QSHIFT [facility] Last Admin: 01/31/22 08:07 Dose: Not Given Documented By: OSCAR Non-Admin Reason: IV Running Thiamine HCl (Thiamine Hcl 100 Mg Tablet) 100 mg PO DAILY [facility] Last Admin: 01/31/22 07:58 Dose: 100 mg Documented By: OSCAR Trazodone HCl (Trazodone Hcl 50 Mg Tablet) 150 mg PO BEDTIME [facility] Last Admin: 01/30/22 20:32 Dose: 150 mg Documented By: MARISABEL Labs CBC & Chem 7: 01/30/22 05:53 01/31/22 05:58 Labs: Laboratory Results - last 24 hr 01/30/22 01/30/22 01/31/22 11:23 17:02 05:58 Anion Gap 14 Estim Creat Clear Calc 166.8 Estimated GFR > 60 POC Glucose 187 H 176 H Random Glucose 141 H D Calcium 8.0 L Lipase 656 H 01/31/22 07:07 Anion Gap Estim Creat Clear Calc Estimated GFR POC Glucose 197 H Random Glucose Calcium Lipase Assessment and Plan (1) Acute pancreatitis: Status: Acute (2) History of alcohol abuse: Status: Acute Plan 51-year-old male with past medical history of alcohol abuse,diabetes as well as pancreatitis in the past,presents to the hospital with acute pancreatitis acute pancreatitis - still with abdominal pain, requiring frequent doses of IV narcotics likely secondary to alcohol abuse, triglycerides 341 continue bowel rest, IVF, Pain control lipase trending down Alcohol use disorder/alcohol withdrawal will start phenobarbitol continue thiamine, and folic acid consider addiction medicine consult Wednesday hyponatremia, mild sodium 130 corrected for hyperglycemia follow BMP diabetes hold oral antihyperglycemics SSI, POCs currently NPO for pancreatitis hypertension BP elevated, likely due to abdominal pain and etoh withdrawal continue metoprolol, lisinopril HLD continue lofibra Mood continue seroquel, zoloft denies SI at this time DVT prophylaxis: Lovenox attending - dr. montiel requires ongoing inpatient hospitalization due to acute pancreatitis, alcohol withdrawal Time Spent With Patient Time: Total time managing care of this patient today ____ minutes. Quality Stroke Does the patient have a stroke diagnosis?: No VTE Prior VTE?: No VTE Risk Level:: Medical - moderate - high VTE Device Contraindication: Treatment Not Indicated VTE Drug Contraindication: N/A - Med Ordered
[2022-01-31 11:36] LABS: Glucose, Whole Blood 156 mg/dL (60-115)
[2022-01-31 15:15] VITALS: RESP 20
[2022-01-31 16:00] VITALS: BP 144/82; PULSE 103; RESP 18; TEMP 36.7; O2SAT 93
[2022-01-31 16:57] LABS: Glucose, Whole Blood 167 mg/dL (60-115)
[2022-01-31 19:11] VITALS: BP 168/79; PULSE 105; RESP 18; TEMP 37.6; O2SAT 96
[2022-01-31 19:49] LABS: Glucose, Whole Blood 164 mg/dL (60-115)
[2022-01-31] MEDS: traZODone HCL 50 MG TABLET 150 MG PO (21:05)
[2022-01-31] MEDS: 0.9 % Sodium Chloride Flush 3 ML SYRINGE IVFLUSH (21:05)
[2022-01-31] MEDS: QUEtiapine Fumarate 300 MG TABLET PO (21:06)
[2022-02-01] MEDS: Lactated Ringers 1,000 ML 150 ML IVCONT (01:24)
[2022-02-01] MEDS: HYDROmorphone HCl 1 MG/ML SYRINGE IVPUSH ×7 (01:36→23:27)
[2022-02-01 04:00] VITALS: BP 122/83; PULSE 120; RESP 14; TEMP 36.4; O2SAT 96
[2022-02-01 06:08] LABS: Hematocrit 34.4 % (42.0-52.0); Hemoglobin 11.9 g/dl (14.0-18.0); Mean Corpuscular HGB Conc 34.6 g/dl (31.0-36.0); Mean Corpuscular Hemoglobin 32.2 pg (27.0-33.0); Platelet Count 157 X10*3/uL (160-400); Red Cell Distribution Width 11.5 % (11.0-16.0); White Blood Count 17.9 X10*3/uL (4.8-10.8)
[2022-02-01 06:49] LABS: Alanine Aminotransferase 14 U/L (0-40); Albumin Level 3.4 g/dL (3.5-5.0); Alkaline Phosphatase 63 U/L (39-117); Anion Gap 12 (12-20); Aspartate Amino Transferase 20 U/L (5-37); Bilirubin Direct 0.4 mg/dL (0.0-0.5); Bilirubin Total 1.1 mg/dL (0.0-1.0); Blood Urea Nitrogen 5 mg/dL (9-16); Calcium 8.6 mg/dL (8.4-10.2); Carbon Dioxide 26 mmol/L (22-29); Chloride 98 mmol/L (96-108); Creatinine Clr Calc Pharmacy 127.9; Estimated Glomerular Filt Rate > 60; Glucose Random 170 mg/dL (60-115); Lipase 204 U/L (8-78); Potassium 3.4 mmol/L (3.3-5.1); Sodium 133 mmol/L (135-145); Total Protein 5.6 g/dL (6.5-8.0)
[2022-02-01 07:29] LABS: Glucose, Whole Blood 158 mg/dL (60-115)
--- NOTE | 2022-02-01 07:52 | HO.PM.IMPN ---
Subjective Subjective Date of Service: 02/01/22 Interval History: Follow-up for acute pancreatitis, alcohol withdrawal Patient continues to have significant generalized abdominal pain and nausea despite lipase level down, HR up and WBC rising Review of Systems Abd pain, no n/v, no chest pain Physical Exam Vital Signs: Vital Signs: Last Vital Signs Temp 97.6 F 02/01/22 04:00 Pulse 120 H 02/01/22 04:00 Resp 14 02/01/22 04:00 BP 122/83 02/01/22 04:00 Pulse Ox 96 02/01/22 04:00 O2 Del Method 02/01/22 04:00 BMI result Body Mass Index 30.4 Const: Other: General: AO X 3, no acute distress Resp: CTA bilateral CVS: S1,S2,RRR GI: epig tendernes, mild distention Skin: No rash Neuro: motor grossly intact Psych: appropriate affect Objective Data Active Medications Dextrose (Dextrose 50 % 25 Gm/50 Ml Syringe) 25 gm IVPUSH Q15M PRN; Protocol PRN Reason: per Hypoglycemia Standing Ord. Enoxaparin Sodium (Enoxaparin Sodium 40 Mg/0.4 Ml Syringe) 40 mg SUBCUT Q24H [facility] Last Admin: 01/31/22 07:58 Dose: 40 mg Documented By: OSCAR Famotidine (Famotidine/Pf 20 Mg/2 Ml Vial) 20 mg IVPUSH DAILY [facility] Last Admin: 01/31/22 07:59 Dose: 20 mg Documented By: OSCAR Fenofibrate (Fenofibrate 160 Mg Tablet) 160 mg PO DAILY [facility] Last Admin: 01/31/22 07:59 Dose: 160 mg Documented By: OSCAR Folic Acid (Folic Acid 1 Mg Tablet) 1 mg PO DAILY [facility] Last Admin: 01/31/22 07:58 Dose: 1 mg Documented By: OSCAR Glucose (Glucose Gel 15 Gm Gel..Gram.) 15 gm PO Q15M PRN; Protocol PRN Reason: per Hypoglycemia Standing Ord. Hydromorphone HCl (Hydromorphone Hcl 1 Mg/Ml Syringe) 1 mg IVPUSH Q3H PRN; Protocol PRN Reason: Pain, Severe (Pain Scale 7-10) Last Admin: 02/01/22 04:58 Dose: 1 mg Documented By: MARISABEL Insulin Human Lispro (Insulin Lispro 100 Unit/Ml 3 Ml Vial) 0 unit SUBCUT QIDACHS [facility]; Protocol Last Admin: 01/31/22 21:06 Dose: 2 unit Documented By: MARISABEL Lisinopril (Lisinopril 10 Mg Tablet) 10 mg PO DAILY [facility]; Protocol Last Admin: 01/31/22 07:58 Dose: 10 mg Documented By: OSCAR Metoprolol Succinate (Metoprolol Succinate Er 50 Mg Tab.Er.24h) 50 mg PO DAILY [facility]; Protocol Last Admin: 01/31/22 07:59 Dose: 50 mg Documented By: OSCAR Ondansetron HCl (Ondansetron Hcl 4 Mg/2 Ml Vial) 4 mg IVPUSH Q8H PRN PRN Reason: Nausea and Vomiting Last Admin: 01/31/22 17:25 Dose: 4 mg Documented By: OSCAR Pharmacy Consult (Consult Rx Etoh Phenob Im/Po) 1 each MISCELLANE ONCE PRN; Protocol PRN Reason: Consult order Phenobarbital (Phenobarbital 15 Mg Tablet) 45 mg PO BID [facility]; Protocol Stop: 02/01/22 09:01 Last Admin: 01/31/22 21:04 Dose: 45 mg Documented By: MARISABEL Phenobarbital (Phenobarbital 30 Mg Tablet) 30 mg PO BID [facility]; Protocol Stop: 02/03/22 09:01 Phenobarbital (Phenobarbital 30 Mg Tablet) 30 mg PO Q24H [facility]; Protocol Stop: 02/04/22 21:01 Quetiapine Fumarate (Quetiapine Fumarate 300 Mg Tablet) 300 mg PO BEDTIME [facility] Last Admin: 01/31/22 21:06 Dose: 300 mg Documented By: MARISABEL Sertraline HCl (Sertraline Hcl 100 Mg Tablet) 100 mg PO DAILY [facility] Last Admin: 01/31/22 07:58 Dose: 100 mg Documented By: OSCAR Sodium Chloride (0.9 % Sodium Chloride Flush 3 Ml [facility]ringe) [facility] Admin: 01/31/22 21:05 Dose: 3 ml Documented By: MARISABEL Thiamine HCl (Thiamine Hcl 100 Mg Tablet) 100 mg PO DAILY [facility] Last Admin: 01/31/22 07:58 Dose: 100 mg Documented By: OSCAR Trazodone HCl (Trazodone Hcl 50 Mg Tablet) 150 mg PO BEDTIME [facility] Last Admin: 01/31/22 21:05 Dose: 150 mg Documented By: MARISABEL Labs CBC & Chem 7: 02/01/22 05:49 02/01/22 05:49 Labs: Laboratory Results - last 24 hr 01/31/22 01/31/22 01/31/22 11:32 16:51 19:41 MCV MCH MCHC RDW Plt Count MPV Absolute Nucleated RBC Nucleated RBC % (auto) Anion Gap Estim Creat Clear Calc Estimated GFR POC Glucose 156 H 167 H 164 H Random Glucose Calcium Total Bilirubin Direct Bilirubin AST ALT Alkaline Phosphatase Total Protein Albumin Lipase 02/01/22 02/01/22 02/01/22 05:49 05:49 07:26 MCV 93.0 MCH 32.2 MCHC 34.6 RDW 11.5 Plt Count 157 L MPV 10.0 Absolute Nucleated RBC 0.000 Nucleated RBC % (auto) 0.0 Anion Gap 12 Estim Creat Clear Calc 127.9 Estimated GFR > 60 POC Glucose 158 H Random Glucose 170 H Calcium 8.6 D Total Bilirubin 1.1 H Direct Bilirubin 0.4 AST 20 ALT 14 Alkaline Phosphatase 63 Total Protein 5.6 L Albumin 3.4 L Lipase 204 H Assessment and Plan (1) Acute pancreatitis: Status: Acute Plan 51-year-old male with past medical history of alcohol abuse,diabetes as well as pancreatitis in the past,presents to the hospital with acute pancreatitis acute pancreatitis - still with abdominal pain, requiring frequent doses of IV narcotics likely secondary to alcohol abuse, triglycerides 341 continue bowel rest, IVF, Pain control lipase trending down since not improving with new SIRS (tachy and increase WBC) repeat CT Alcohol use disorder/alcohol withdrawal, prsently no sings of symptoms of withdrawal continue phenobarbitol continue thiamine, and folic acid consider addiction medicine consult Wednesday hyponatremia, mild sodium 133 corrected for hyperglycemia follow BMP diabetes hold oral antihyperglycemics SSI, POCs currently NPO for pancreatitis hypertension--controlled continue metoprolol, lisinopril HLD/hyper TG continue lofibra Mood continue seroquel, zoloft denies SI at this time DVT prophylaxis: Lovenox requires ongoing inpatient hospitalization due to acute pancreatitis, alcohol withdrawal Time Spent With Patient Time: Total time managing care of this patient today ____ minutes. Quality Stroke Does the patient have a stroke diagnosis?: No VTE Prior VTE?: No VTE Risk Level:: Medical - moderate - high VTE Device Contraindication: Treatment Not Indicated VTE Drug Contraindication: N/A - Med Ordered
[2022-02-01 07:57] VITALS: BP 137/82; PULSE 120; RESP 20; TEMP 36.8; O2SAT 97
[2022-02-01] MEDS: PHENobarbitaL 15 MG TABLET 45 MG PO (08:46)
[2022-02-01] MEDS: Famotidine/PF 20 MG/2 ML VIAL IVPUSH (08:46)
[2022-02-01] MEDS: Insulin Lispro 100 UNIT/ML 3 ML VIAL SUBCUT ×3 (08:46→19:36)
[2022-02-01] MEDS: Sertraline HCL 100 MG TABLET PO (08:46)
[2022-02-01] MEDS: Folic Acid 1 MG TABLET PO (08:47)
[2022-02-01] MEDS: lisinopriL 10 MG TABLET PO (08:47)
[2022-02-01] MEDS: Fenofibrate 160 MG TABLET PO (08:47)
[2022-02-01] MEDS: Thiamine HCL 100 MG TABLET PO (08:47)
[2022-02-01] MEDS: Enoxaparin Sodium 40 MG/0.4 ML SYRINGE SUBCUT (08:47)
[2022-02-01] MEDS: Metoprolol Succinate ER 50 MG TAB.ER.24H PO (08:47)
[2022-02-01 11:53] LABS: Glucose, Whole Blood 137 mg/dL (60-115)
[2022-02-01] MEDS: iohexoL 350 MG/ML 100 ML INFUS..BTL 85 ML IV (12:24)
[2022-02-01 12:28] VITALS: O2SAT 98
[2022-02-01] MEDS: 0.9 % Sodium Chloride Flush 3 ML SYRINGE IVFLUSH ×2 (14:15→19:37)
[2022-02-01 15:12] VITALS: BP 131/68; PULSE 90; RESP 18; TEMP 36.5; O2SAT 95
[2022-02-01 15:52] LABS: Glucose, Whole Blood 152 mg/dL (60-115)
[2022-02-01] MEDS: Dextrose 5 % 1,000 ML 125 ML IVCONT ×2 (16:22→23:23)
--- NOTE | 2022-02-01 16:54 | PM.CNGS ---
History of Present Illness Consult details Consult date: 02/01/22 Narrative: 51M with know ETOH abuse, admitted 01/30/2022 for epigastric pain. His lipas was elevated at [address] showed inflamamtory changes surrounding the pancreas c/w acute pancreatitis, likely secondary to ETOH. He does admit to dtill drinking heavily and says he dos not have a good environment around him at home, pushing him to drink. Since admission, he seems to have persistent abdominal pain, and says this seemed to not improve at all. His WBC has been rising. He had a repeat CT today showing worsening inflammatory changes around the pancease with new areas of hypoenhancement in the tail. Review of Systems Constitutional: Constitutional: Denies chills and Denies fever(s) Cardiovascular: Cardiovascular: Denies chest pain, Denies dyspnea and Denies dyspnea on exertion Respiratory: Respiratory: Denies cough, Denies dyspnea and Denies dyspnea on exertion Gastrointestinal: Gastrointestinal: Denies hematochezia and Denies change in bowel habits Genitourinary: Genitourinary: Denies hematuria and Denies difficulty urinating Musculoskeletal: Musculoskeletal: Denies back pain and Denies limited range of motion Neurologic: Denies focal weakness and Denies convulsions Psychiatric: Psychiatric: Denies depression and Denies mood swings PMFSH Past Medical History Medical History Alcohol abuse Alcohol withdrawal Arthritis Cocaine abuse Cocaine abuse Diabetes mellitus Duodenitis Hypertension Pancreatitis Seizures Family History Family History Other CAD (coronary artery disease) Diabetes mellitus Surgical History Surgical History H/O hernia repair Social History Social History Household Members: None Housing: House Do you presently have visiting nurse or other home services: No Alcohol intake: current Alcohol intake frequency: a few times a week Alcohol type: beer Patient Tobacco Use Status: Never used Tobacco Second Hand Smoke Exposure: No Use of substances other than those prescribed or required for medical reasons: No Substance Use Type: Prescription Drugs Currently Displaying Signs/Symptoms of Drug Intoxication Withdrawal: No Have you been hit, kicked, punched, or otherwise hurt by someone within the past year? If so, by whom?: No Do you feel safe in your current relationship?: No Current Relationship Is there a partner from a previous relationship who is making you feel unsafe now?: No Are you made to feel afraid or neglected: No Advance Directives: No Advance Directives Information Provided: No Advance Directives Date on File: 02/27/20 Do you have thoughts of harming others: None Do you have a plan to hurt others: No Plan Recently lost weight without trying: No Nutrition Risks: No Nutritional Risk Poor oral hygiene: No service: No Current occupational status: disabled Meds Allergies Allergy/AdvReac Type Severity Reaction Status Date / Time No Known Allergies Allergy Verified 11/18/21 20:28 [No Known Allergies*] Active Medications: Current Medications Dextrose (Dextrose 50 % 25 Gm/50 Ml Syringe) 25 gm IVPUSH Q15M PRN; Protocol PRN Reason: per Hypoglycemia Standing Ord. Enoxaparin Sodium (Enoxaparin Sodium 40 Mg/0.4 Ml Syringe) 40 mg SUBCUT Q24H [facility] Last Admin: 02/01/22 08:47 Dose: 40 mg Famotidine (Famotidine/Pf 20 Mg/2 Ml Vial) 20 mg IVPUSH DAILY [facility] Last Admin: 02/01/22 08:46 Dose: 20 mg Fenofibrate (Fenofibrate 160 Mg Tablet) 160 mg PO DAILY [facility] Last Admin: 02/01/22 08:47 Dose: 160 mg Folic Acid (Folic Acid 1 Mg Tablet) 1 mg PO DAILY [facility] Last Admin: 02/01/22 08:47 Dose: 1 mg Glucose (Glucose Gel 15 Gm Gel..Gram.) 15 gm PO Q15M PRN; Protocol PRN Reason: per Hypoglycemia Standing Ord. Hydromorphone HCl (Hydromorphone Hcl 1 Mg/Ml Syringe) 1 mg IVPUSH Q3H PRN; Protocol PRN Reason: Pain, Severe (Pain Scale 7-10) Last Admin: 02/01/22 16:23 Dose: 1 mg Dextrose (D5w) 1,000 mls @ 125 mls/hr IVCONT .Q8H [facility] Last Admin: 02/01/22 16:22 Dose: 125 mls/hr Insulin Human Lispro (Insulin Lispro 100 Unit/Ml 3 Ml Vial) 0 unit SUBCUT QIDACHS [facility]; Protocol Last Admin: 02/01/22 16:24 Dose: 2 unit Lisinopril (Lisinopril 10 Mg Tablet) 10 mg PO DAILY [facility]; Protocol Last Admin: 02/01/22 08:47 Dose: 10 mg Metoprolol Succinate (Metoprolol Succinate Er 50 Mg Tab.Er.24h) 50 mg PO DAILY [facility]; Protocol Last Admin: 02/01/22 08:47 Dose: 50 mg Ondansetron HCl (Ondansetron Hcl 4 Mg/2 Ml Vial) 4 mg IVPUSH Q8H PRN PRN Reason: Nausea and Vomiting Last Admin: 01/31/22 17:25 Dose: 4 mg Pharmacy Consult (Consult Rx Etoh Phenob Im/Po) 1 each MISCELLANE ONCE PRN; Protocol PRN Reason: Consult order Phenobarbital (Phenobarbital 30 Mg Tablet) 30 mg PO BID [facility]; Protocol Stop: 02/03/22 09:01 Phenobarbital (Phenobarbital 30 Mg Tablet) 30 mg PO Q24H [facility]; Protocol Stop: 02/04/22 21:01 Quetiapine Fumarate (Quetiapine Fumarate 300 Mg Tablet) 300 mg PO BEDTIME [facility] Last Admin: 01/31/22 21:06 Dose: 300 mg Sertraline HCl (Sertraline Hcl 100 Mg Tablet) 100 mg PO DAILY [facility] Last Admin: 02/01/22 08:46 Dose: 100 mg Sodium Chloride (0.9 % Sodium Chloride Flush 3 Ml Syringe) [facility] Last Admin: 02/01/22 14:15 Dose: 3 ml Thiamine HCl (Thiamine Hcl 100 Mg Tablet) 100 mg PO DAILY [facility] Last Admin: 02/01/22 08:47 Dose: 100 mg Trazodone HCl (Trazodone Hcl 50 Mg Tablet) 150 mg PO BEDTIME [facility] Last Admin: 01/31/22 21:05 Dose: 150 mg Home Medications Medication Instructions Recorded Confirmed Last Taken Type metoprolol succinate 50 mg 50 mg PO DAILY 02/27/20 01/30/22 08/05/21 History tablet,extended release 24 hr quetiapine 300 mg tablet 300 mg PO BEDTIME 02/27/20 01/30/22 08/04/21 History trazodone 150 mg tablet 150 mg PO BEDTIME 02/27/20 01/30/22 08/04/21 History empagliflozin 25 mg tablet 25 mg PO DAILY 05/22/20 01/30/22 08/05/21 History (Jardiance) lisinopril 10 mg tablet 1 tab PO DAILY 11/04/20 01/30/22 08/05/21 History sertraline 100 mg tablet 1 tab PO DAILY 06/23/21 01/30/22 08/05/21 History Physical Exam Vital Signs: Vital Signs: Last Vital Signs Temp 97.7 F 02/01/22 15:12 Pulse 90 02/01/22 15:12 Resp 18 02/01/22 15:12 BP 131/68 02/01/22 15:12 Pulse Ox 95 02/01/22 15:12 O2 Del Method 02/01/22 15:12 BMI result Body Mass Index 30.4 Const: Other: says he has epig pain General: no acute distress Orientation/consciousness: patient oriented x3 Neck: Neck: Yes no lymphadenopathy Resp: Auscultation: clear to auscultation bilaterally Cardio: Rhythm: regular rhythm GI: Other: tender of upper abdomen, mild guarding, no rebound Palpation (GI): Soft to palpation, nontender and no guarding Neuro: General: patient oriented x3 Results Labs Result diagrams: 02/02/22 07:52 02/02/22 07:52 Labs: Abnormal lab results 01/31/22 01/31/22 02/01/22 Range/Units 16:51 19:41 05:49 WBC 17.9 H (4.8-10.8) X10*3/uL RBC 3.70 L (4.60-5.80) X10*6/uL Hgb 11.9 L (14.0-18.0) g/dl Hct 34.4 L (42.0-52.0) % Plt Count 157 L (160-400) X10*3/uL Sodium (135-145) mmol/L BUN (9-16) mg/dL POC Glucose 167 H 164 H (60-115) mg/dL Random Glucose (60-115) mg/dL Total Bilirubin (0.0-1.0) mg/dL Total Protein (6.5-8.0) g/dL Albumin (3.5-5.0) g/dL Lipase (8-78) U/L 02/01/22 02/01/22 02/01/22 Range/Units 05:49 07:26 11:43 WBC (4.8-10.8) X10*3/uL RBC (4.60-5.80) X10*6/uL Hgb (14.0-18.0) g/dl Hct (42.0-52.0) % Plt Count (160-400) X10*3/uL Sodium 133 L (135-145) mmol/L BUN 5 L (9-16) mg/dL POC Glucose 158 H 137 H (60-115) mg/dL Random Glucose 170 H (60-115) mg/dL Total Bilirubin 1.1 H (0.0-1.0) mg/dL Total Protein 5.6 L (6.5-8.0) g/dL Albumin 3.4 L (3.5-5.0) g/dL Lipase 204 H (8-78) U/L 02/01/22 Range/Units 15:05 WBC (4.8-10.8) X10*3/uL RBC (4.60-5.80) X10*6/uL Hgb (14.0-18.0) g/dl Hct (42.0-52.0) % Plt Count (160-400) X10*3/uL Sodium (135-145) mmol/L BUN (9-16) mg/dL POC Glucose 152 H (60-115) mg/dL Random Glucose (60-115) mg/dL Total Bilirubin (0.0-1.0) mg/dL Total Protein (6.5-8.0) g/dL Albumin (3.5-5.0) g/dL Lipase (8-78) U/L Short CBC 02/01/22 Range/Units 05:49 WBC 17.9 H (4.8-10.8) X10*3/uL Hgb 11.9 L (14.0-18.0) g/dl Hct 34.4 L (42.0-52.0) % Plt Count 157 L (160-400) X10*3/uL BMP 02/01/22 05:49 Sodium 133 L Potassium 3.4 Chloride 98 Carbon Dioxide 26 BUN 5 L Creatinine 0.73 Calcium 8.6 D Liver Function 02/01/22 Range/Units 05:49 Total Bilirubin 1.1 H (0.0-1.0) mg/dL Direct Bilirubin 0.4 (0.0-0.5) mg/dL AST 20 (5-37) U/L ALT 14 (0-40) U/L Alkaline Phosphatase 63 (39-117) U/L Albumin 3.4 L (3.5-5.0) g/dL All other labs normal. Assessment and Plan (1) Acute pancreatitis: Status: Acute He has acute pancreatitis secondary to ETOH abuse. He dos not seem to have imrpoved since admission and his WBC is now elevated. His CT scan is suspicious for necrotizing pancreatitis with areas if hypoenhancement at the tail and worseninf peripancreatitic inflammatory changes. In view of this necrotizing process, I have recommended for him to be transferred to tertiary care [facility] as he may need debridement of this necrotizing process and may be potentially critically ill as well. I explained this plan to him and he understands. He currently seems to be hemodynamically stable, but may potentially be severely ill especially with concern for a sustemic inflammatory response to his ongong pancreatitis. Time Spent With Patient Time: Total time managing care of this patient today ____ minutes. Procedures Date of Service Date of Service: 02/01/22
[2022-02-01 19:30] VITALS: BP 126/74; PULSE 93; RESP 18; TEMP 37.1; O2SAT 94
[2022-02-01] MEDS: traZODone HCL 50 MG TABLET 150 MG PO (19:36)
[2022-02-01] MEDS: PHENobarbitaL 30 MG TABLET PO (19:36)
[2022-02-01] MEDS: QUEtiapine Fumarate 300 MG TABLET PO (19:36)
[2022-02-01 20:19] LABS: Glucose, Whole Blood 189 mg/dL (60-115)
[2022-02-02] MEDS: HYDROmorphone HCl 1 MG/ML SYRINGE IVPUSH ×2 (03:24→06:09)
[2022-02-02 03:45] VITALS: BP 124/61; PULSE 97; RESP 18; TEMP 37.3; O2SAT 95
--- NOTE | 2022-02-02 05:40 | PC.NURSE ---
pt refuses bed alarm.
[2022-02-02] MEDS: Dextrose 5 % 1,000 ML 125 ML IVCONT ×2 (06:33→16:07)
[2022-02-02 07:15] VITALS: BP 115/59; PULSE 90; RESP 18; TEMP 36.9; O2SAT 96
--- NOTE | 2022-02-02 07:43 | P.PNIM_ITS ---
Subjective Subjective Date of Service: 02/02/22 Interval History: Follow-up for acute pancreatitis, alcohol withdrawal Patient continues to have significant generalized abdominal pain and nausea despite lipase level down, HR down, WBC down Review of Systems Abd pain, no n/v, no chest pain Physical Exam Vital Signs: Vital Signs: Last Vital Signs Temp 98.4 F 02/02/22 07:15 Pulse 90 02/02/22 07:15 Resp 18 02/02/22 07:15 BP 115/59 L 02/02/22 07:15 Pulse Ox 96 02/02/22 07:15 O2 Del Method 02/02/22 07:15 BMI result Body Mass Index 30.4 Const: Other: General: AO X 3, no acute distress Resp: CTA bilateral CVS: S1,S2,RRR GI: epigastric tenderness, some gurarding and mild distention Skin: No rash Neuro: motor grossly intact Psych: appropriate affect Objective Data Active Medications Dextrose (Dextrose 50 % 25 Gm/50 Ml Syringe) 25 gm IVPUSH Q15M PRN; Protocol PRN Reason: per Hypoglycemia Standing Ord. Enoxaparin Sodium (Enoxaparin Sodium 40 Mg/0.4 Ml Syringe) 40 mg SUBCUT Q24H [facility] Last Admin: 02/01/22 08:47 Dose: 40 mg Documented By: DONALD Famotidine (Famotidine/Pf 20 Mg/2 Ml Vial) 20 mg IVPUSH DAILY [facility] Last Admin: 02/01/22 08:46 Dose: 20 mg Documented By: DONALD Fenofibrate (Fenofibrate 160 Mg Tablet) 160 mg PO DAILY [facility] Last Admin: 02/01/22 08:47 Dose: 160 mg Documented By: DONALD Folic Acid (Folic Acid 1 Mg Tablet) 1 mg PO DAILY [facility] Last Admin: 02/01/22 08:47 Dose: 1 mg Documented By: DONALD Glucose (Glucose Gel 15 Gm Gel..Gram.) 15 gm PO Q15M PRN; Protocol PRN Reason: per Hypoglycemia Standing Ord. Hydromorphone HCl (Hydromorphone Hcl 1 Mg/Ml Syringe) 1 mg IVPUSH Q3H PRN; Protocol PRN Reason: Pain, Severe (Pain Scale 7-10) Last Admin: 02/02/22 06:09 Dose: 1 mg Documented By: SAMUEL Dextrose (D5w) 1,000 mls @ 125 mls/hr IVCONT .Q8H [facility] Last Admin: 02/02/22 06:33 Dose: 125 mls/hr Documented By: SAMUEL Insulin Human Lispro (Insulin Lispro 100 Unit/Ml 3 Ml Vial) 0 unit SUBCUT QIDACHS [facility]; Protocol Last Admin: 02/01/22 19:36 Dose: 2 unit Documented By: SAMUEL Lisinopril (Lisinopril 10 Mg Tablet) 10 mg PO DAILY [facility]; Protocol Last Admin: 02/01/22 08:47 Dose: 10 mg Documented By: DONALD Metoprolol Succinate (Metoprolol Succinate Er 50 Mg Tab.Er.24h) 50 mg PO DAILY [facility]; Protocol Last Admin: 02/01/22 08:47 Dose: 50 mg Documented By: DONALD Ondansetron HCl (Ondansetron Hcl 4 Mg/2 Ml Vial) 4 mg IVPUSH Q8H PRN PRN Reason: Nausea and Vomiting Last Admin: 01/31/22 17:25 Dose: 4 mg Documented By: OSCAR Pharmacy Consult (Consult Rx Etoh Phenob Im/Po) 1 each MISCELLANE ONCE PRN; Protocol PRN Reason: Consult order Phenobarbital (Phenobarbital 30 Mg Tablet) 30 mg PO BID [facility]; Protocol Stop: 02/03/22 09:01 Last Admin: 02/01/22 19:36 Dose: 30 mg Documented By: SAMUEL Phenobarbital (Phenobarbital 30 Mg Tablet) 30 mg PO Q24H [facility]; Protocol Stop: 02/04/22 21:01 Quetiapine Fumarate (Quetiapine Fumarate 300 Mg Tablet) 300 mg PO BEDTIME [facility] Last Admin: 02/01/22 19:36 Dose: 300 mg Documented By: SAMUEL Sertraline HCl (Sertraline Hcl 100 Mg Tablet) 100 mg PO DAILY [facility] Last Admin: 02/01/22 08:46 Dose: 100 mg Documented By: DONALD Sodium Chloride (0.9 % Sodium Chloride Flush 3 Ml Syringe) 3 ml IVFLUSH QSHIFT [facility] Last Admin: 02/01/22 19:37 Dose: 3 ml Documented By: SAMUEL Thiamine HCl (Thiamine Hcl 100 Mg Tablet) 100 mg PO DAILY [facility] Last Admin: 02/01/22 08:47 Dose: 100 mg Documented By: DONALD Trazodone HCl (Trazodone Hcl 50 Mg Tablet) 150 mg PO BEDTIME [facility] Last Admin: 02/01/22 19:36 Dose: 150 mg Documented By: SAMUEL Labs CBC & Chem 7: 02/02/22 07:52 02/02/22 07:52 Labs: Laboratory Results - last 24 hr 02/01/22 02/01/22 02/01/22 11:43 15:05 19:29 POC Glucose 137 H 152 H 189 H Assessment and Plan (1) Acute pancreatitis: Status: Acute Plan 51-year-old male with past medical history of alcohol abuse,diabetes as well as pancreatitis in the past,presents to the hospital with acute pancreatitis Acute pancreatitis - with persistent abdominal and worsening CT finding with evidence of necrosis, lipase has been trending down, lfts normal. continue pain management with , IVF, bowel rest. Arragment is being for trasfer to [facility] in light of necrosis. Attempted transfer to [facility], [facility] and [facility] unsuccesfully SIRS d/t above, tachycardia resolved Alcohol use disorder/alcohol withdrawal, prsently no sings of symptoms of withdrawal continue phenobarbitol continue thiamine, and folic acid hyponatremia, mild, resolved Hypokalemia 3. 2, add to fluid diabetes hold oral antihyperglycemics SSI, POCs currently NPO for pancreatitis hypertension--controlled continue metoprolol, lisinopril HLD/hyper TG continue lofibra Mood do continue seroquel, zoloft denies SI at this time DVT prophylaxis: [place] requires ongoing inpatient hospitalization due to severe, acute pancreatitis with necressis requiring IV pain med being hydrated while NPO Time Spent With Patient Time: Total time managing care of this patient today ____ minutes. Quality Stroke Does the patient have a stroke diagnosis?: No VTE Prior VTE?: No VTE Risk Level:: Medical - moderate - high VTE Device Contraindication: Treatment Not Indicated VTE Drug Contraindication: N/A - Med Ordered
[2022-02-02] MEDS: Famotidine/PF 20 MG/2 ML VIAL IVPUSH (08:19)
[2022-02-02] MEDS: Metoprolol Succinate ER 50 MG TAB.ER.24H PO (08:19)
[2022-02-02] MEDS: Insulin Lispro 100 UNIT/ML 3 ML VIAL SUBCUT ×3 (08:19→20:30)
[2022-02-02] MEDS: Folic Acid 1 MG TABLET PO (08:19)
[2022-02-02] MEDS: lisinopriL 10 MG TABLET PO (08:19)
[2022-02-02] MEDS: Sertraline HCL 100 MG TABLET PO (08:19)
[2022-02-02] MEDS: Fenofibrate 160 MG TABLET PO (08:19)
[2022-02-02] MEDS: PHENobarbitaL 30 MG TABLET PO ×2 (08:19→20:31)
[2022-02-02] MEDS: Thiamine HCL 100 MG TABLET PO (08:19)
[2022-02-02] MEDS: Enoxaparin Sodium 40 MG/0.4 ML SYRINGE SUBCUT (08:20)
[2022-02-02] MEDS: 0.9 % Sodium Chloride Flush 3 ML SYRINGE IVFLUSH ×2 (08:20→14:56)
[2022-02-02 08:31] LABS: Hematocrit 32.6 % (42.0-52.0); Hemoglobin 11.1 g/dl (14.0-18.0); Mean Corpuscular Hemoglobin 32.6 pg (27.0-33.0); Mean Corpuscular Volume 95.6 fL (80.0-98.0); Mean Platelet Volume 10.7 fL (9.4-12.4); Platelet Count 165 X10*3/uL (160-400); Red Blood Count 3.41 X10*6/uL (4.60-5.80); Red Cell Distribution Width 11.7 % (11.0-16.0); White Blood Count 13.1 X10*3/uL (4.8-10.8)
[2022-02-02 08:39] LABS: Anion Gap 14 (12-20); Blood Urea Nitrogen 6 mg/dL (9-16); Calcium 8.7 mg/dL (8.4-10.2); Carbon Dioxide 29 mmol/L (22-29); Chloride 96 mmol/L (96-108); Creatinine Clr Calc Pharmacy 129.7; Estimated Glomerular Filt Rate > 60; Glucose Random 204 mg/dL (60-115); Lipase 357 U/L (8-78); Potassium 3.2 mmol/L (3.3-5.1); Sodium 136 mmol/L (135-145)
[2022-02-02 08:53] LABS: Glucose, Whole Blood 205 mg/dL (60-115)
[2022-02-02] MEDS: Morphine Sulfate 4 MG/ML CARTRIDGE IVPUSH ×5 (08:58→20:31)
[2022-02-02 11:29] LABS: Glucose, Whole Blood 145 mg/dL (60-115)
--- NOTE | 2022-02-02 14:08 | MHC.CM.PN ---
EMR REVIEWED PER MD ROUNDS, MAY TRANSFER TO [facility] FOR TREATMENT, CM WILL CONTINUE TO FOLLOW.
[2022-02-02 15:12] VITALS: BP 138/69; PULSE 78; RESP 15; TEMP 36.7; O2SAT 92
[2022-02-02 16:00] LABS: Glucose, Whole Blood 212 mg/dL (60-115)
[2022-02-02] MEDS: ondansetron HCL 4 MG/2 ML VIAL IVPUSH (17:38)
[2022-02-02 19:17] VITALS: BP 145/80; PULSE 89; RESP 15; TEMP 36.8; O2SAT 96
[2022-02-02] MEDS: oxyCODONE HCl Immed Release 5 MG TABLET PO (19:39)
[2022-02-02 19:52] LABS: Glucose, Whole Blood 164 mg/dL (60-115)
[2022-02-02] MEDS: traZODone HCL 50 MG TABLET 150 MG PO (20:31)
[2022-02-02] MEDS: QUEtiapine Fumarate 300 MG TABLET PO (20:31)
[2022-02-03] MEDS: Dextrose 5 % 1,000 ML 125 ML IVCONT ×3 (00:16→15:30)
[2022-02-03] MEDS: Morphine Sulfate 4 MG/ML CARTRIDGE IVPUSH ×8 (00:21→21:27)
[2022-02-03 03:33] VITALS: BP 139/70; PULSE 93; RESP 18; TEMP 37.1; O2SAT 95
[2022-02-03] MEDS: oxyCODONE HCl Immed Release 5 MG TABLET PO ×3 (05:50→19:36)
[2022-02-03 07:24] LABS: Glucose, Whole Blood 223 mg/dL (60-115)
[2022-02-03] MEDS: Fenofibrate 160 MG TABLET PO (07:41)
[2022-02-03] MEDS: Metoprolol Succinate ER 50 MG TAB.ER.24H PO (07:41)
[2022-02-03] MEDS: Famotidine/PF 20 MG/2 ML VIAL IVPUSH (07:41)
[2022-02-03] MEDS: PHENobarbitaL 30 MG TABLET PO ×2 (07:41→21:27)
[2022-02-03] MEDS: Thiamine HCL 100 MG TABLET PO (07:41)
[2022-02-03] MEDS: lisinopriL 10 MG TABLET PO (07:41)
[2022-02-03] MEDS: Sertraline HCL 100 MG TABLET PO (07:42)
[2022-02-03] MEDS: Insulin Lispro 100 UNIT/ML 3 ML VIAL SUBCUT ×4 (07:42→21:28)
[2022-02-03] MEDS: Folic Acid 1 MG TABLET PO (07:42)
[2022-02-03 07:43] VITALS: BP 134/76; PULSE 86; RESP 17; TEMP 36.8; O2SAT 98
[2022-02-03] MEDS: Enoxaparin Sodium 40 MG/0.4 ML SYRINGE SUBCUT (07:43)
--- NOTE | 2022-02-03 08:03 | PM.EVENT ---
Event Note Date of Service: 02/03/22 Time Spent With Patient Time: Total time managing care of this patient today ____ minutes.
[2022-02-03 08:29] LABS: Hematocrit 32.3 % (42.0-52.0); Mean Corpuscular HGB Conc 34.1 g/dl (31.0-36.0); Mean Corpuscular Volume 93.9 fL (80.0-98.0); Mean Platelet Volume 10.1 fL (9.4-12.4); Platelet Count 206 X10*3/uL (160-400); Red Blood Count 3.44 X10*6/uL (4.60-5.80); Red Cell Distribution Width 11.6 % (11.0-16.0); White Blood Count 9.9 X10*3/uL (4.8-10.8)
[2022-02-03 08:51] LABS: Alanine Aminotransferase 13 U/L (0-40); Albumin Level 3.6 g/dL (3.5-5.0); Alkaline Phosphatase 68 U/L (39-117); Anion Gap 11 (12-20); Aspartate Amino Transferase 13 U/L (5-37); Bilirubin Direct 0.3 mg/dL (0.0-0.5); Blood Urea Nitrogen 4 mg/dL (9-16); Calcium 8.7 mg/dL (8.4-10.2); Carbon Dioxide 29 mmol/L (22-29); Chloride 99 mmol/L (96-108); Creatinine Clr Calc Pharmacy 126.2; Estimated Glomerular Filt Rate > 60; Glucose Random 253 mg/dL (60-115); Lipase 410 U/L (8-78); Potassium 3.2 mmol/L (3.3-5.1); Sodium 136 mmol/L (135-145); Total Protein 6.2 g/dL (6.5-8.0)
--- NOTE | 2022-02-03 09:17 | HO.PM.IMPN ---
Subjective Subjective Date of Service: 02/03/22 Interval History: Follow-up for acute pancreatitis, alcohol withdrawal Overall feels better, less pain, WBC normal and hemodynamically stable normal LFTs, lipase 410 Review of Systems +Abd pain, no n/v, no chest pain Physical Exam Vital Signs: Vital Signs: Last Vital Signs Temp 98.2 F 02/03/22 07:43 Pulse 86 02/03/22 07:43 Resp 17 02/03/22 07:43 BP 134/76 02/03/22 07:43 Pulse Ox 98 02/03/22 07:43 O2 Del Method 02/03/22 07:43 BMI result Body Mass Index 30.4 Const: Other: General: AO X 3, no acute distress Resp: CTA bilateral CVS: S1,S2,RRR GI: epigastric tenderness, some gurarding and mild distention Skin: No rash Neuro: motor grossly intact Psych: appropriate affect Objective Data Active Medications Dextrose (Dextrose 50 % 25 Gm/50 Ml Syringe) 25 gm IVPUSH Q15M PRN; Protocol PRN Reason: per Hypoglycemia Standing Ord. Enoxaparin Sodium (Enoxaparin Sodium 40 Mg/0.4 Ml Syringe) 40 mg SUBCUT Q24H [facility] Last Admin: 02/03/22 07:43 Dose: 40 mg Documented By: FAN Famotidine (Famotidine/Pf 20 Mg/2 Ml Vial) 20 mg IVPUSH DAILY [facility] Last Admin: 02/03/22 07:41 Dose: 20 mg Documented By: FAN Fenofibrate (Fenofibrate 160 Mg Tablet) 160 mg PO DAILY [facility] Last Admin: 02/03/22 07:41 Dose: 160 mg Documented By: FAN Folic Acid (Folic Acid 1 Mg Tablet) 1 mg PO DAILY [facility] Last Admin: 02/03/22 07:42 Dose: 1 mg Documented By: FAN Glucose (Glucose Gel 15 Gm Gel..Gram.) 15 gm PO Q15M PRN; Protocol PRN Reason: per Hypoglycemia Standing Ord. Dextrose (D5w) 1,000 mls @ 125 mls/hr IVCONT .Q8H [facility] Last Admin: 02/03/22 09:01 Dose: 125 mls/hr Documented By: FAN Insulin Human Lispro (Insulin Lispro 100 Unit/Ml 3 Ml Vial) 0 unit SUBCUT QIDACHS [facility]; Protocol Last Admin: 02/03/22 07:42 Dose: 4 unit Documented By: FAN Lisinopril (Lisinopril 10 Mg Tablet) 10 mg PO DAILY [facility]; Protocol Last Admin: 02/03/22 07:41 Dose: 10 mg Documented By: FAN Metoprolol Succinate (Metoprolol Succinate Er 50 Mg Tab.Er.24h) 50 mg PO DAILY [facility]; Protocol Last Admin: 02/03/22 07:41 Dose: 50 mg Documented By: FAN Morphine Sulfate (Morphine Sulfate 4 Mg/Ml Cartridge) 4 mg IVPUSH Q3H PRN; Protocol PRN Reason: Pain, Severe (Pain Scale 7-10) Last Admin: 02/03/22 06:29 Dose: 4 mg Documented By: LALITO Ondansetron HCl (Ondansetron Hcl 4 Mg/2 Ml Vial) 4 mg IVPUSH Q8H PRN PRN Reason: Nausea and Vomiting Last Admin: 02/02/22 17:38 Dose: 4 mg Documented By: CELSO Oxycodone HCl (Oxycodone Hcl Immed Release 5 Mg Tablet) 5 mg PO Q6H PRN PRN Reason: Pain, Severe (Pain Scale 7-10) Last Admin: 02/03/22 05:50 Dose: 5 mg Documented By: LALITO Pharmacy Consult (Consult Rx Etoh Phenob Im/Po) 1 each MISCELLANE ONCE PRN; Protocol PRN Reason: Consult order Phenobarbital (Phenobarbital 30 Mg Tablet) 30 mg PO Q24H [facility]; Protocol Stop: 02/04/22 21:01 Quetiapine Fumarate (Quetiapine Fumarate 300 Mg Tablet) 300 mg PO BEDTIME [facility] Last Admin: 02/02/22 20:31 Dose: 300 mg Documented By: LALITO Sertraline HCl (Sertraline Hcl 100 Mg Tablet) 100 mg PO DAILY [facility] Last Admin: 02/03/22 07:42 Dose: 100 mg Documented By: FAN Sodium Chloride (0.9 % Sodium Chloride Flush 3 Ml Syringe) 3 ml IVFLUSH QSHIFT [facility] Last Admin: 02/03/22 07:42 Dose: Not Given Documented By: FAN Non-Admin Reason: IV Running Thiamine HCl (Thiamine Hcl 100 Mg Tablet) 100 mg PO DAILY [facility] Last Admin: 02/03/22 07:41 Dose: 100 mg Documented By: DABJazmyne Trazodone HCl (Trazodone Hcl 50 Mg Tablet) 150 mg PO BEDTIME [facility] Last Admin: 02/02/22 20:31 Dose: 150 mg Documented By: [facility] Labs CBC & Chem 7: 02/03/22 08:12 02/03/22 08:12 Labs: Laboratory Results - last 24 hr 02/02/22 02/02/22 02/02/22 11:15 15:11 19:13 MCV MCH MCHC RDW Plt Count MPV Absolute Nucleated RBC Nucleated RBC % (auto) Anion Gap Estim Creat Clear Calc Estimated GFR POC Glucose 145 H 212 H 164 H Random Glucose Calcium Direct Bilirubin AST ALT Alkaline Phosphatase Total Protein Albumin Lipase 02/03/22 02/03/22 02/03/22 07:15 08:12 08:12 MCV 93.9 MCH 32.0 MCHC 34.1 RDW 11.6 Plt Count 206 MPV 10.1 Absolute Nucleated RBC 0.000 Nucleated RBC % (auto) 0.0 Anion Gap 11 L Estim Creat Clear Calc 126.2 Estimated GFR > 60 POC Glucose 223 H Random Glucose 253 H Calcium 8.7 Direct Bilirubin 0.3 AST 13 D ALT 13 Alkaline Phosphatase 68 Total Protein 6.2 L Albumin 3.6 Lipase 410 H Assessment and Plan (1) Acute pancreatitis: Status: Acute Plan 51-year-old male with past medical history of alcohol abuse,diabetes as well as pancreatitis in the past,presents to the hospital with acute pancreatitis Acute pancreatitis - with persistent abdominal and worsening CT finding with evidence of necrosis, lipase has been trending down, lfts normal. continue pain management with , IVF, bowel rest. Arragment is being for trasfer to [facility] in light of necrosis. Attempted transfer to [facility], [facility] and [facility] unsuccesfully consider repeat CT if pain worsening SIRS d/t above, tachycardia resolved Alcohol use disorder/alcohol withdrawal, prsently no sings of symptoms of withdrawal continue phenobarbitol continue thiamine, and folic acid hyponatremia, mild, resolved Hypokalemia 3. 2, add to fluid diabetes hold oral antihyperglycemics SSI, POCs currently NPO for pancreatitis hypertension--controlled continue metoprolol, lisinopril HLD/hyper TG continue lofibra Mood do continue seroquel, zoloft denies SI at this time DVT prophylaxis: Sannax requires ongoing inpatient hospitalization due to severe, acute pancreatitis with necressis requiring IV pain med being hydrated while NPO Time Spent With Patient Time: Total time managing care of this patient today ____ minutes. Quality Stroke Does the patient have a stroke diagnosis?: No VTE Prior VTE?: No VTE Risk Level:: Medical - moderate - high VTE Device Contraindication: Treatment Not Indicated VTE Drug Contraindication: N/A - Med Ordered
[2022-02-03 11:30] LABS: Bilirubin Total 0.7 mg/dL (0.0-1.0)
[2022-02-03 11:58] LABS: Glucose, Whole Blood 193 mg/dL (60-115)
[2022-02-03 15:09] VITALS: BP 139/83; PULSE 90; RESP 1; TEMP 36.6; O2SAT 95
[2022-02-03 15:49] LABS: Glucose, Whole Blood 212 mg/dL (60-115)
[2022-02-03 19:32] VITALS: BP 142/72; PULSE 88; RESP 18; TEMP 36.4; O2SAT 97
[2022-02-03 20:31] LABS: Glucose, Whole Blood 183 mg/dL (60-115)
[2022-02-03] MEDS: traZODone HCL 50 MG TABLET 150 MG PO (21:27)
[2022-02-03] MEDS: 0.9 % Sodium Chloride Flush 3 ML SYRINGE IVFLUSH (21:27)
[2022-02-03] MEDS: QUEtiapine Fumarate 300 MG TABLET PO (21:30)
[2022-02-04] MEDS: Morphine Sulfate 4 MG/ML CARTRIDGE IVPUSH ×6 (01:56→19:20)
[2022-02-04 03:22] VITALS: BP 146/83; PULSE 88; RESP 18; TEMP 36.8; O2SAT 97
[2022-02-04] MEDS: oxyCODONE HCl Immed Release 5 MG TABLET PO ×3 (03:22→20:50)
[2022-02-04] MEDS: Thiamine HCL 100 MG TABLET PO (07:37)
[2022-02-04] MEDS: Folic Acid 1 MG TABLET PO (07:37)
[2022-02-04] MEDS: Famotidine/PF 20 MG/2 ML VIAL IVPUSH (07:37)
[2022-02-04] MEDS: Fenofibrate 160 MG TABLET PO (07:37)
[2022-02-04] MEDS: Sertraline HCL 100 MG TABLET PO (07:37)
[2022-02-04] MEDS: lisinopriL 10 MG TABLET PO (07:37)
[2022-02-04] MEDS: Metoprolol Succinate ER 50 MG TAB.ER.24H PO (07:37)
[2022-02-04] MEDS: 0.9 % Sodium Chloride Flush 3 ML SYRINGE IVFLUSH ×2 (07:38→19:20)
[2022-02-04] MEDS: Enoxaparin Sodium 40 MG/0.4 ML SYRINGE SUBCUT (07:38)
[2022-02-04 07:51] LABS: Glucose, Whole Blood 227 mg/dL (60-115)
[2022-02-04] MEDS: Insulin Lispro 100 UNIT/ML 3 ML VIAL SUBCUT ×3 (07:52→20:50)
[2022-02-04 08:00] VITALS: BP 139/87; PULSE 86; RESP 18; TEMP 36.1; O2SAT 98
--- NOTE | 2022-02-04 08:53 | P.PNIM_ITS ---
Subjective Subjective Date of Service: 02/04/22 Interval History: Follow-up for acute pancreatitis, alcohol withdrawal Overall feels better, pain is better today Review of Systems +Abd pain, no n/v, no chest pain Physical Exam Vital Signs: Vital Signs: Last Vital Signs Temp 98.3 F 02/04/22 03:22 Pulse 88 02/04/22 03:22 Resp 18 02/04/22 03:22 BP 146/83 H 02/04/22 03:22 Pulse Ox 97 02/04/22 03:22 O2 Del Method 02/04/22 03:22 BMI result Body Mass Index 30.4 Const: Other: General: AO X 3, no acute distress Resp: CTA bilateral CVS: S1,S2,RRR GI: epigastric tenderness, no guarding Neuro: motor grossly intact Psych: appropriate affect Objective Data Active Medications Dextrose (Dextrose 50 % 25 Gm/50 Ml Syringe) 25 gm IVPUSH Q15M PRN; Protocol PRN Reason: per Hypoglycemia Standing Ord. Enoxaparin Sodium (Enoxaparin Sodium 40 Mg/0.4 Ml Syringe) 40 mg SUBCUT Q24H [facility] Last Admin: 02/04/22 07:38 Dose: 40 mg Documented By: FAN Famotidine (Famotidine/Pf 20 Mg/2 Ml Vial) 20 mg IVPUSH DAILY [facility] Last Admin: 02/04/22 07:37 Dose: 20 mg Documented By: FAN Fenofibrate (Fenofibrate 160 Mg Tablet) 160 mg PO DAILY [facility] Last Admin: 02/04/22 07:37 Dose: 160 mg Documented By: FAN Folic Acid (Folic Acid 1 Mg Tablet) 1 mg PO DAILY [facility] Last Admin: 02/04/22 07:37 Dose: 1 mg Documented By: FAN Glucose (Glucose Gel 15 Gm Gel..Gram.) 15 gm PO Q15M PRN; Protocol PRN Reason: per Hypoglycemia Standing Ord. Lactated Ringer's (Lr) 1,000 mls @ 150 mls/hr IVCONT .Q6H40M [facility] Insulin Human Lispro (Insulin Lispro 100 Unit/Ml 3 Ml Vial) 0 unit SUBCUT QIDACHS [facility]; Protocol Last Admin: 02/04/22 07:52 Dose: 2 unit Documented By: FAN Lisinopril (Lisinopril 10 Mg Tablet) 10 mg PO DAILY [facility]; Protocol Last Admin: 02/04/22 07:37 Dose: 10 mg Documented By: FAN Metoprolol Succinate (Metoprolol Succinate Er 50 Mg Tab.Er.24h) 50 mg PO DAILY [facility]; Protocol Last Admin: 02/04/22 07:37 Dose: 50 mg Documented By: FAN Morphine Sulfate (Morphine Sulfate 4 Mg/Ml Cartridge) 4 mg IVPUSH Q3H PRN; Protocol PRN Reason: Pain, Severe (Pain Scale 7-10) Last Admin: 02/04/22 07:40 Dose: 4 mg Documented By: FAN Ondansetron HCl (Ondansetron Hcl 4 Mg/2 Ml Vial) 4 mg IVPUSH Q8H PRN PRN Reason: Nausea and Vomiting Last Admin: 02/02/22 17:38 Dose: 4 mg Documented By: CELSO Oxycodone HCl (Oxycodone Hcl Immed Release 5 Mg Tablet) 5 mg PO Q6H PRN PRN Reason: Pain, Severe (Pain Scale 7-10) Last Admin: 02/04/22 03:22 Dose: 5 mg Documented By: KAY Pharmacy Consult (Consult Rx Etoh Phenob Im/Po) 1 each MISCELLANE ONCE PRN; Protocol PRN Reason: Consult order Phenobarbital (Phenobarbital 30 Mg Tablet) 30 mg PO Q24H [facility]; Protocol Stop: 02/04/22 21:01 Last Admin: 02/03/22 21:27 Dose: 30 mg Documented By: SAMUEL Quetiapine Fumarate (Quetiapine Fumarate 300 Mg Tablet) 300 mg PO BEDTIME [facility] Last Admin: 02/03/22 21:30 Dose: 300 mg Documented By: SAMUEL Sertraline HCl (Sertraline Hcl 100 Mg Tablet) 100 mg PO DAILY [facility] Last Admin: 02/04/22 07:37 Dose: 100 mg Documented By: FAN Sodium Chloride (0.9 % Sodium Chloride Flush 3 Ml Syringe) 3 ml IVFLUSH QSHIFT [facility] Last Admin: 02/04/22 07:38 Dose: 3 ml Documented By: FAN Thiamine HCl (Thiamine Hcl 100 Mg Tablet) 100 mg PO DAILY [facility] Last Admin: 02/04/22 07:37 Dose: 100 mg Documented By: HO.DABA Trazodone HCl (Trazodone Hcl 50 Mg Tablet) 150 mg PO BEDTIME [facility] Last Admin: 02/03/22 21:27 Dose: 150 mg Documented By: SAMUEL Labs CBC & Chem 7: 02/03/22 08:12 02/03/22 08:12 Labs: Laboratory Results - last 24 hr 02/03/22 02/03/22 02/03/22 08:12 11:36 15:44 POC Glucose 193 H 212 H Total Bilirubin 0.7 02/03/22 02/04/22 19:36 07:35 POC Glucose 183 H 227 H Total Bilirubin Assessment and Plan (1) Acute pancreatitis: Status: Acute Plan 51-year-old male with past medical history of alcohol abuse,diabetes as well as pancreatitis in the past,presents to the hospital with acute pancreatitis Acute pancreatitis - with persistent abdominal and worsening CT finding with evidence of necrosis on CT of 02/01, lipase up as of 02/03. Pain is better and tolerating liquid diet. Repeat CT today continue pain management with , IVF. Arragment is being for trasfer to [facility] in light of necrosis. Attempted transfer to [facility], [facility] and [facility] unsuccesfully. If improve will not need transfer SIRS d/t above--Resolved Alcohol use disorder/alcohol withdrawal, prsently no sings of symptoms of withd celestina continue phenobarbitol continue thiamine, and folic acid hyponatremia, mild, resolved Hypokalemia 3. 2, resolved diabetes hold oral antihyperglycemics SSI, POCs hypertension--controlled continue metoprolol, lisinopril HLD/hyper TG continue lofibra Mood do continue seroquel, zoloft denies SI at this time DVT prophylaxis: Lovenox requires ongoing inpatient hospitalization due to severe, acute pancreatitis with necressis requiring IV pain med being hydrated while NPO Time Spent With Patient Time: Total time managing care of this patient today ____ minutes. Quality Stroke Does the patient have a stroke diagnosis?: No VTE Prior VTE?: No VTE Risk Level:: Medical - moderate - high VTE Device Contraindication: Treatment Not Indicated VTE Drug Contraindication: N/A - Med Ordered
[2022-02-04] MEDS: Lactated Ringers 1,000 ML 150 ML IVCONT ×3 (10:23→22:10)
[2022-02-04 11:29] LABS: Glucose, Whole Blood 189 mg/dL (60-115)
--- NOTE | 2022-02-04 14:32 | MHC.CM.PN ---
EMR REVIEWED AND PER MD ROUNDS, PT NOT MEDICALLY CLEARED FOR DC (IV PAIN MEDS/FLUIDS, NPO STATUS)DUE TO SEVERE PANCREATITIS. CM WILL CONTINUE TO FOLLOW
[2022-02-04 15:15] VITALS: BP 143/79; PULSE 80; RESP 18; TEMP 36.7; O2SAT 98
[2022-02-04 19:07] VITALS: BP 156/88; PULSE 72; RESP 18; TEMP 36.6; O2SAT 97
[2022-02-04 20:43] LABS: Glucose, Whole Blood 207 mg/dL (60-115)
[2022-02-04] MEDS: traZODone HCL 50 MG TABLET 150 MG PO (20:50)
[2022-02-04] MEDS: QUEtiapine Fumarate 300 MG TABLET PO (20:50)
[2022-02-04] MEDS: PHENobarbitaL 30 MG TABLET PO (20:50)
[2022-02-05] MEDS: Morphine Sulfate 4 MG/ML CARTRIDGE IVPUSH ×4 (01:37→23:25)
[2022-02-05 03:26] VITALS: BP 132/78; PULSE 77; RESP 18; TEMP 37.2; O2SAT 97
[2022-02-05] MEDS: oxyCODONE HCl Immed Release 5 MG TABLET PO ×3 (04:03→20:30)
[2022-02-05] MEDS: Lactated Ringers 1,000 ML 150 ML IVCONT ×2 (04:04→10:40)
[2022-02-05 07:17] LABS: Glucose, Whole Blood 204 mg/dL (60-115)
[2022-02-05] MEDS: Insulin Lispro 100 UNIT/ML 3 ML VIAL SUBCUT ×4 (07:22→20:30)
[2022-02-05] MEDS: Famotidine/PF 20 MG/2 ML VIAL IVPUSH (07:23)
[2022-02-05] MEDS: Thiamine HCL 100 MG TABLET PO (07:23)
[2022-02-05] MEDS: Fenofibrate 160 MG TABLET PO (07:23)
[2022-02-05] MEDS: Sertraline HCL 100 MG TABLET PO (07:23)
[2022-02-05] MEDS: Metoprolol Succinate ER 50 MG TAB.ER.24H PO (07:23)
[2022-02-05] MEDS: lisinopriL 10 MG TABLET PO (07:23)
[2022-02-05] MEDS: Folic Acid 1 MG TABLET PO (07:23)
[2022-02-05] MEDS: Enoxaparin Sodium 40 MG/0.4 ML SYRINGE SUBCUT (07:24)
[2022-02-05 07:27] VITALS: BP 163/96; PULSE 83; RESP 19; TEMP 37.4; O2SAT 98
[2022-02-05 11:47] LABS: Glucose, Whole Blood 247 mg/dL (60-115)
--- NOTE | 2022-02-05 12:48 | HO.PM.IMPN ---
Subjective Subjective Date of Service: 02/05/22 Interval History: Follow-up for acute pancreatitis, alcohol withdrawal Overall feels better, pain is better today and interested in starting diet Review of Systems Review of Systems: Yes all other systems are reviewed and are negative Physical Exam Vital Signs: Vital Signs: Last Vital Signs Temp 99.3 F 02/05/22 07:27 Pulse 83 02/05/22 07:27 Resp 19 02/05/22 07:27 BP 163/96 H 02/05/22 07:27 Pulse Ox 98 02/05/22 07:27 O2 Del Method 02/05/22 07:27 BMI result Body Mass Index 30.4 Const: Other: General: AO X 3, no acute distress Resp: CTA bilateral CVS: S1,S2,RRR GI: mild epigastric tenderness, no guarding Neuro: motor grossly intact Psych: appropriate affect Objective Data Active Medications Dextrose (Dextrose 50 % 25 Gm/50 Ml Syringe) 25 gm IVPUSH Q15M PRN; Protocol PRN Reason: per Hypoglycemia Standing Ord. Enoxaparin Sodium (Enoxaparin Sodium 40 Mg/0.4 Ml Syringe) 40 mg SUBCUT Q24H [facility] Last Admin: 02/05/22 07:24 Dose: 40 mg Documented By: FAN Famotidine (Famotidine/Pf 20 Mg/2 Ml Vial) 20 mg IVPUSH DAILY [facility] Last Admin: 02/05/22 07:23 Dose: 20 mg Documented By: FAN Fenofibrate (Fenofibrate 160 Mg Tablet) 160 mg PO DAILY [facility] Last Admin: 02/05/22 07:23 Dose: 160 mg Documented By: FAN Folic Acid (Folic Acid 1 Mg Tablet) 1 mg PO DAILY [facility] Last Admin: 02/05/22 07:23 Dose: 1 mg Documented By: FAN Glucose (Glucose Gel 15 Gm Gel..Gram.) 15 gm PO Q15M PRN; Protocol PRN Reason: per Hypoglycemia Standing Ord. Lactated Ringer's (Lr) 1,000 mls @ 100 mls/hr IVCONT .Q10H [facility] Last Admin: 02/05/22 10:40 Dose: 150 mls/hr Documented By: FAN Insulin Human Lispro (Insulin Lispro 100 Unit/Ml 3 Ml Vial) 0 unit SUBCUT QIDACHS [facility]; Protocol Last Admin: 02/05/22 11:52 Dose: 4 unit Documented By: FAN Lisinopril (Lisinopril 10 Mg Tablet) 10 mg PO DAILY [facility]; Protocol Last Admin: 02/05/22 07:23 Dose: 10 mg Documented By: FAN Metoprolol Succinate (Metoprolol Succinate Er 50 Mg Tab.Er.24h) 50 mg PO DAILY [facility]; Protocol Last Admin: 02/05/22 07:23 Dose: 50 mg Documented By: FAN Morphine Sulfate (Morphine Sulfate 4 Mg/Ml Cartridge) 4 mg IVPUSH Q3H PRN; Protocol PRN Reason: Pain, Severe (Pain Scale 7-10) Last Admin: 02/05/22 01:37 Dose: 4 mg Documented By: SAMUEL Ondansetron HCl (Ondansetron Hcl 4 Mg/2 Ml Vial) 4 mg IVPUSH Q8H PRN PRN Reason: Nausea and Vomiting Last Admin: 02/02/22 17:38 Dose: 4 mg Documented By: CELSO Oxycodone HCl (Oxycodone Hcl Immed Release 5 Mg Tablet) 5 mg PO Q6H PRN PRN Reason: Pain, Severe (Pain Scale 7-10) Last Admin: 02/05/22 04:03 Dose: 5 mg Documented By: SAMUEL Pharmacy Consult (Consult Rx Etoh Phenob Im/Po) 1 each MISCELLANE ONCE PRN; Protocol PRN Reason: Consult order Quetiapine Fumarate (Quetiapine Fumarate 300 Mg Tablet) 300 mg PO BEDTIME [facility] Last Admin: 02/04/22 20:50 Dose: 300 mg Documented By: SAMUEL Sertraline HCl (Sertraline Hcl 100 Mg Tablet) 100 mg PO DAILY [facility] Last Admin: 02/05/22 07:23 Dose: 100 mg Documented By: FAN Sodium Chloride (0.9 % Sodium Chloride Flush 3 Ml Syringe) [facility] Last Admin: 02/05/22 06:31 Dose: Not Given Documented By: FAN Non-Admin Reason: IV Running Thiamine HCl (Thiamine Hcl 100 Mg Tablet) 100 mg PO DAILY [facility] Last Admin: 02/05/22 07:23 Dose: 100 mg Documented By: FAN Trazodone HCl (Trazodone Hcl 50 Mg Tablet) 150 mg PO BEDTIME [facility] Last Admin: 02/04/22 20:50 Dose: 150 mg Documented By: HOMARQC Labs CBC & Chem 7: 02/03/22 08:12 02/03/22 08:12 Labs: Laboratory Results - last 24 hr 02/04/22 02/05/22 02/05/22 20:38 07:12 11:37 POC Glucose 207 H 204 H 247 H Assessment and Plan (1) Acute pancreatitis: Status: Acute Plan ?51-year-old male with past medical history of alcohol abuse,diabetes as well as pancreatitis in the past,presents to the hospital with acute pancreatitis Acute pancreatitis improved abdominal? Stable CT finding on repeated CT scan, evidence of necrosis on CT of 02/01 Pain is better and tolerating liquid diet. to advanced diet continue pain management with IVF Attempted transfer to [facility], [facility] and [facility] unsuccesfully. If improve will not need transfer SIRS d/t above, Resolved Alcohol use disorder/alcohol withdrawal, prsently no sings of symptoms of withdrawal continue phenobarbitol continue thiamine,? and folic acid hyponatremia mild,? resolved Hypokalemia 3. 2, resolved diabetes hold oral antihyperglycemics SSI, POCs hypertension--controlled continue metoprolol, lisinopril HLD/hyper TG continue lofibra Mood do continue seroquel, zoloft denies SI at this time DVT prophylaxis:? Lovenox requires ongoing inpatient hospitalization due to severe,? acute pancreatitis with necressis requiring IV pain med? being hydrated while advancing diet slowly Time Spent With Patient Time: Total time managing care of this patient today ____ minutes. Quality Stroke Does the patient have a stroke diagnosis?: No VTE Prior VTE?: No VTE Risk Level:: Medical - moderate - high VTE Device Contraindication: Treatment Not Indicated VTE Drug Contraindication: N/A - Med Ordered
[2022-02-05 15:28] VITALS: BP 141/84; PULSE 81; RESP 18; TEMP 36.6; O2SAT 97
[2022-02-05 16:15] LABS: Lipase 140 U/L (8-78)
[2022-02-05 19:03] VITALS: BP 148/87; PULSE 80; RESP 18; TEMP 36.7; O2SAT 97
[2022-02-05] MEDS: traZODone HCL 50 MG TABLET 150 MG PO (20:29)
[2022-02-05] MEDS: QUEtiapine Fumarate 300 MG TABLET PO (20:30)
[2022-02-05] MEDS: 0.9 % Sodium Chloride Flush 3 ML SYRINGE IVFLUSH (20:30)
[2022-02-06] MEDS: oxyCODONE HCl Immed Release 5 MG TABLET PO (02:33)
[2022-02-06 03:07] VITALS: BP 148/83; PULSE 78; RESP 16; TEMP 36.6; O2SAT 98
--- NOTE | 2022-02-06 03:19 | PC.NURSE ---
Pt claimed that his dinner didn't settle well and made him nauseous and increased in abd pain, prn Oxycodone po given, slept after.
[2022-02-06] MEDS: Morphine Sulfate 4 MG/ML CARTRIDGE IVPUSH ×2 (03:38→06:42)
[2022-02-06 06:55] LABS: Anion Gap 14 (12-20); Blood Urea Nitrogen 6 mg/dL (9-16); Calcium 8.8 mg/dL (8.4-10.2); Carbon Dioxide 26 mmol/L (22-29); Chloride 101 mmol/L (96-108); Creatinine Clr Calc Pharmacy 127.9; Estimated Glomerular Filt Rate > 60; Glucose Random 228 mg/dL (60-115); Potassium 3.6 mmol/L (3.3-5.1); Sodium 137 mmol/L (135-145)
[2022-02-06 07:47] VITALS: BP 140/78; PULSE 65; RESP 14; TEMP 36.2; O2SAT 97
[2022-02-06] MEDS: Insulin Lispro 100 UNIT/ML 3 ML VIAL SUBCUT (08:26)
[2022-02-06] MEDS: Fenofibrate 160 MG TABLET PO (08:27)
[2022-02-06] MEDS: Folic Acid 1 MG TABLET PO (08:27)
[2022-02-06] MEDS: Metoprolol Succinate ER 50 MG TAB.ER.24H PO (08:27)
[2022-02-06] MEDS: Sertraline HCL 100 MG TABLET PO (08:27)
[2022-02-06] MEDS: Thiamine HCL 100 MG TABLET PO (08:28)
[2022-02-06] MEDS: lisinopriL 10 MG TABLET PO (08:28)
[2022-02-06] MEDS: 0.9 % Sodium Chloride Flush 3 ML SYRINGE IVFLUSH (08:28)
[2022-02-06] MEDS: Famotidine/PF 20 MG/2 ML VIAL IVPUSH (08:28)
[2022-02-06] MEDS: Enoxaparin Sodium 40 MG/0.4 ML SYRINGE SUBCUT (08:29)
--- NOTE | 2022-02-06 10:38 | PM.DS ---
DS: Providers Provider Date of Service: 02/06/22 Date of admission: 01/30/22 02:02 Primary care physician: Ruma Gilbert MD Consults: 01/30/22 14:12 Addiction Medicine Routine Consulting Provider: Addiction Covering Reason for consultation: alcohol use disorder Has provider been notified: No 02/01/22 15:56 Consult to General Surgery Routine Consulting Provider: Juan Jose Chapman Reason for consultation: pancreatitis Has provider been notified: No DS: Diagnosis Discharge Diagnosis (1) Acute pancreatitis: Status: Acute DS: Summary Hospital Course Hospital Course: admission note HPI ?51-year-old male with past medical history of alcohol abuse, diabetes, history of pancreatitis, hypertension, as well as seizure presents to the hospital with complaints of epigastric abdominal pain that started the day presentation.? Reports pain is radiating to the back, pain is 10/10, associated with nausea vomiting, no diarrhea, reports alcohol abuse drinks daily.? No history of withdrawal. ? Reports no chest pain, no shortness of breath, no fever or chills, no urinary symptoms and no lower extremity edema.? No diarrhea constipation.? No numbness tingling or weakness.? On arrival to the ED hemodynamically stable with no significant abnormal vitals ?labs are significant for WBC of 6.1, hemoglobin 13.6, hematocrit 39.4, triglyceride in the 300s labs otherwise unremarkable ?abdomen pelvic CT shows acute pancreatitis, no peripancreatic fluid collection Hospital course The patient was admitted to the hospital for evaluation of abdominal pain as CT scan of the abdomen was consistent with acute pancreatitis. The patient was started IV fluid, pain medication and bowel rest but continued to abdominal pain with repeated CT scan showing a concern of possible necrosis. Patient was evaluated by surgical team who recommended to continue supportive treatment and try to transfer the patient to a tertiary center. [facility] were contacted with no bed availability. Patient started to improve and repeated CT scan showed stable findings. Diet was started and he was able to tolerate advancing diet to regular. [place] much comfortable and started to as to be discharged home. Agree total abstinence from alcohol. Advance your diet slowly, avoid fatty food, alcohol and have multiple small meals Oxycodone as needed for pain Zofran as needed for nausea Time Spent with Patient Time attestation: Total time managing care of this patient today ____ minutes. Discharge coordination time: Greater than 30 minutes Quality: Safe Use of Opioids Does Pt have an Active Cancer Diagnosis on the Problem List?: No Quality: Stroke Does the patient have a stroke diagnosis?: No Physical Exam Vital Signs: Vital Signs: Last Vital Signs Temp 97.1 F 02/06/22 07:47 Pulse 65 02/06/22 07:47 Resp 14 02/06/22 07:47 BP 140/78 H 02/06/22 07:47 Pulse Ox 97 02/06/22 07:47 O2 Del Method 02/06/22 07:47 BMI result Body Mass Index 30.4 Const: Other: Constitutional : Awake, interactive, not in distress Neck : Normal inspection, Supple Cardiovascular : RRR, no JVP, no lower extremity edema Respiratory : good bilateral air entry, no crackles, wheezes or rhonchi Gastrointestinal: soft, lax, Normal bowel sounds, Non tender Skin : Warm, Dry Neurological : Alert & oriented x3, No focal deficit DS: Data Data Completed and Pending Completed studies during hospitalization [Text1]: Procedures Detoxification Services for Substance Abuse Treatment (08/05/21) Labs on day of discharge: Laboratory Results - last 24 hr 02/05/22 02/05/22 02/05/22 11:37 15:32 15:34 Sodium Potassium Chloride Carbon Dioxide Anion Gap BUN Creatinine Estim Creat Clear Calc Estimated GFR POC Glucose 247 H 187 H Random Glucose Calcium Lipase 140 H 02/05/22 02/06/22 02/06/22 19:07 05:05 08:02 Sodium 137 Potassium 3.6 Chloride 101 Carbon Dioxide 26 Anion Gap 14 BUN 6 L Creatinine 0.73 Estim Creat Clear Calc 127.9 Estimated GFR > 60 POC Glucose 238 H 230 H Random Glucose 228 H Calcium 8.[address] scan - abdomen: Radiologist's impression: ITS Impressions Abdomen/Pelvis CT 01/30/22 00:13 IMPRESSION: Acute interstitial edematous pancreatitis, slightly more pronounced as compared to prior. No peripancreatic fluid collections or appreciable ductal dilatation. Fleischner guidelines were followed. Abdomen/Pelvis CT 02/01/22 12:25 IMPRESSION: 1. Interval increase in peripancreatic stranding suggesting worsening in pancreatitis. There are now areas of hypoenhancement within the pancreatic tail suggesting possible areas of necrosis. No well-defined peripancreatic fluid collection identified. 2. Interval development of mild ascites within the abdomen and pelvis. 3. Small left and tiny right-sided pleural effusions. Fleischner guidelines were followed. Abdomen/Pelvis CT 02/04/22 09:29 IMPRESSION: 1. Similar appearance of the pancreatic parenchyma with prominent inflammatory changes surrounding the pancreas. There is again an area of hypoattenuation at the pancreatic tail which is concerning for necrosis. There is no formed fluid collection at this time. 2. 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 This is similar to prior. 3. Mildly prominent retroperitoneal lymph nodes are likely reactive. Fleischner guidelines were followed. Venous Duplex 02/04/22 22:39 IMPRESSION: No DVT demonstrated in the left upper extremity Discharge Plan Discharge Anticipated Discharge Date/Time: 02/06/22 10:21 Patient Disposition: Home, Self-Care Discharge Diagnosis: Acute pancreatitis Referrals: Ruma Gilbert MD [Primary Care Provider] - 1 Week Discharge Medications: New oxycodone 5 mg Tablet 5 mg PO Q6H PRN (Reason: Pain, Severe (Pain Scale 7-10)) Qty: 10 0RF Rx Instructions: Partial Fill upon patient request. ondansetron 4 mg tablet,disintegrating 4 mg PO Q8H PRN (Reason: nausea and vomiting) Qty: 20 0RF Continued Jardiance 25 mg tablet 25 mg PO DAILY Rx Instructions: Per patient and Salma ([place] for Dr Gilbert) This replaces trulicty. patient is not on metformin anymore either folic acid 1 mg Tablet 1 mg PO DAILY Qty: 30 0RF thiamine mononitrate (vit B1) 100 mg Tablet 100 mg PO DAILY Qty: 30 0RF quetiapine 300 mg tablet 300 mg PO BEDTIME metoprolol succinate 50 mg tablet extended release 24 hr 50 mg PO DAILY trazodone 150 mg tablet 150 mg PO BEDTIME lisinopril 10 mg tablet 1 tab PO DAILY sertraline 100 mg tablet 1 tab PO DAILY fenofibrate nanocrystallized [Tricor] 145 mg tablet 145 mg PO DAILY Qty: 30 2RF Discharge Orders: Discharge Order (Routine); Ordered 02/06/22 Ordered By: Maria Del Rosario Post Diet: Low fat, low cholesterol Activity on Discharge: As tolerated Stand Alone Forms: Patient Portal Discharge page Care Plan Goals: Read below Health Concerns: Read below Plan of Treatment: Read below Assessment: You were admitted to the hospital for treatment of abdominal pain. Found to have acute pancreatitis. Treated with IV fluids , pain medication and bowel rest with surgical evaluation as your symptoms started to improve and he became able to tolerate diet that was advanced gradually over the course of hospital stay. Advance your diet slowly, avoid fatty food, alcohol and have multiple small meals Oxycodone as needed for pain Zofran as needed for nausea
--- NOTE | 2022-02-06 11:32 | MHC.CM.PN ---
DP: PT MEDICALLY CLEARED FOR DC HOME, NO SERVICES. RN AWARE. PT HAS OWN RIDE HOME.
== END 2022-02-06 11:17 | disposition home or self-care (01) | DRG 439 ==
LOC: HO.ED 01-30 00:42 → HO.EDOVER 01-30 02:20 → HO.S3 01-30 03:12
PROVIDERS: Internal Medicine; Physician Assistant Medical; Admitting Provider Internal Medicine; Emergency Provider Emergency Medicine; PCP Internal Medicine; Visit Provider Student in an Organized Health Care Education/Training Program
DX: K85.21 Alcohol induced acute pancreatitis with uninfected necrosis (principal); E87.1 Hypo-osmolality and hyponatremia; F10.139 Alcohol abuse with withdrawal, unspecified; R65.10 Systemic inflammatory response syndrome (SIRS) of non-infectious origin without acute organ dysfunction; E11.65 Type 2 diabetes mellitus with hyperglycemia; E66.3 Overweight; Z68.30 Body mass index [BMI] 30.0-30.9, adult; E78.1 Pure hyperglyceridemia; E87.6 Hypokalemia; F39 Unspecified mood [affective] disorder; I10 Essential (primary) hypertension; Y90.5 Blood alcohol level of 100-119 mg/100 ml; Z20.822 Contact with and (suspected) exposure to COVID-19; Z79.899 Other long term (current) drug therapy
CPT/HCPCS: 36415; 74177; 80048; 80053; 80076; 82077; 82947; 83690; 84478; 85025; 85027; 87635; 93971; 96361; 96374; 96375; 96376; 99284; 99285; J1170; J1650; J2060; J2270; J2405; J2550; J2560; Q9967

== ENCOUNTER 2022-03-20 17:21 | Outpatient (REF) | payer OTHER, SELFPAY | END 2022-03-20 17:22 | disposition home or self-care (01) | LOC: HO.HOSX 17:21 | PROVIDERS: Visit Provider Physician Assistant | DX: Z13.89 Encounter for screening for other disorder (principal) ==

== ENCOUNTER 2022-04-27 16:01 | Outpatient (REF) | payer OTHER, SELFPAY ==
--- NOTE | ~2022-04-27 | XR_ITS ---
EXAMINATION: XR HIP, LEFT CLINICAL INFORMATION: 52-year-old male patient with hip pain. COMPARISON: None TECHNIQUE: AP view of the pelvis including both hips and coned down AP and frog leg lateral views of the left hip. FINDINGS: A total hip arthroplasty is in place on the right side. There is no evidence of hardware failure or loosening. Heterotopic bone formation is seen in the soft tissues and arising from the greater trochanter. Arteriovascular calcifications and calcifications of the vas deferens are present in the pelvis. Previous hernia surgery has been performed in the pelvis/lower abdomen The left hip joint is well-preserved. Articular margins are smooth. There is no evidence of acute bone or joint abnormality. 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 XR/XR hip LT w [id number] IMPRESSION: Status post right total hip arthroplasty. No hardware failure. Heterotopic bone formation. 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
== END 2022-04-27 16:02 | disposition home or self-care (01) ==
LOC: HO.HOSX 16:01
PROVIDERS: Visit Provider Physician Assistant
DX: M16.12 Unilateral primary osteoarthritis, left hip (principal)
CPT/HCPCS: 73502; 99202

== ENCOUNTER → 2022-05-18 08:58 | Outpatient (BNVA) | payer OTHER, MEDICAID, SELFPAY | PROVIDERS: PCP Internal Medicine; Visit Provider Orthopaedic Surgery | DX: M70.72 Other bursitis of hip, left hip (principal) | CPT/HCPCS: 20610; 99212; J1100 ==

== ENCOUNTER 2022-06-23 18:21 | Inpatient (IN) | payer OTHER, SELFPAY ==
--- NOTE | ~2022-06-23 | XR_ITS ---
EXAMINATION: XR CHEST CLINICAL INFORMATION: Upper respiratory tract infection COMPARISON: Previous chest x-ray most recent June 2021 TECHNIQUE: Frontal view of the chest was obtained. FINDINGS: The cardiac and mediastinal contours are normal. The lungs are clear. No pleural effusion or pneumothorax. Degenerative changes of the spine. Old trauma to the right acromioclavicular joint. XR/XR chest 1V IMPRESSION: No evidence for acute disease in the chest.
--- NOTE | ~2022-06-23 | US_ITS ---
EXAMINATION: US ABDOMEN LIMITED CLINICAL INFORMATION: Abdominal pain. Pancreatitis.. COMPARISON: Previous CT of the abdomen and pelvis January 2022 and abdominal ultrasound February 2020 TECHNIQUE: Real-time imaging of the right upper quadrant abdominal viscera. FINDINGS: PANCREAS: Not visualized due to bowel gas LIVER: Liver echotexture is slightly increased.. The liver is normal in size. The liver contour is normal. No focal hepatic lesion. There is no intrahepatic biliary duct dilatation seen. GALLBLADDER: Normal. The gallbladder is physiologically distended without evidence of stones, sludge, polyps, wall thickening or pericholecystic fluid. COMMON BILE DUCT: Normal in caliber measuring 0.4 cm in diameter. RIGHT KIDNEY: Normal. No hydronephrosis. No renal calculi or focal parenchymal lesions. The kidney measures 12 cm in maximum dimension. FREE FLUID: None. US/US abdomen limited IMPRESSION: Slightly echogenic liver. Nonvisualization of the pancreas.
--- NOTE | ~2022-06-23 | CT_ITS ---
EXAMINATION: CT ABDOMEN AND PELVIS WITH CONTRAST CLINICAL INFORMATION: Epigastric abdominal pain with nausea and vomiting COMPARISON: Ultrasound abdomen earlier today, CT abdomen pelvis 02/04/2022 TECHNIQUE: Multidetector volumetric images were obtained from the superior aspect of the liver through the pubic symphysis following administration 85 mL of Omnipaque 350 intravenous contrast. Sagittal and coronal reformatted images were obtained on the technologist's workstation. Oral contrast: No This CT examination was performed using dose optimization techniques as appropriate, variously including the following: *Automated exposure control *Adjustment of mA and/or kV according to patient size (this includes techniques or standardized protocols for targeted exams where dose is matched to indication/reason for exam; i.e. extremities or head) *Use of iterative reconstruction technique DLP: 657 mGy-cm FINDINGS: LUNG BASES: The visualized lung bases are unremarkable. LIVER, GALLBLADDER, AND BILIARY TREE: The liver is mildly enlarged at 17.6 cm but normal shape and attenuation. No focal hepatic lesion or biliary ductal dilatation is present. The gallbladder is distended but otherwise unremarkable with no evidence of radiopaque gallstones, gallbladder wall thickening, or obvious pericholecystic inflammatory changes. PANCREAS: The prior study, there has been a dramatic improvement in appearance pancreas with resolution of most of the peripancreatic inflammatory changes. Some minimal changes persist around the pancreatic head. The area of hypoattenuation in the pancreatic tail concerning for necrosis seen previously is considerably smaller measuring about 1.2 cm, previously measuring about 3.4 cm. SPLEEN: Spleen is enlarged at 13.5 cmm ADRENAL GLANDS: Unremarkable. KIDNEYS AND URETERS: The kidneys are normal in size, shape, and attenuation. No hydronephrosis, hydroureter, or calculi seen. No perinephric stranding. BLADDER: Unremarkable. GASTROINTESTINAL TRACT: The small and large bowel are unremarkable aside from a few scattered colonic diverticula without evidence of diverticulitis. The appendix is unremarkable. ABDOMINAL WALL: There is been prior abdominal wall surgery. A small periumbilical hernias present containing only fat. Tiny inguinal hernias containing only fat are seen. LYMPH NODES: Shotty retroperitoneal lymph nodes seen but no retroperitoneal lymphadenopathy. VASCULAR: Unremarkable. PELVIC VISCERA: There is mild BPH. Calcifications are present in the vas deferens. OSSEOUS STRUCTURES: Unremarkable. CT/CT abdomen pelvis w IV con IMPRESSION: 1. Dramatic improvement in appearance of the pancreas since the prior study with resolution of most of the peripancreatic inflammatory changes. Some minimal changes persist around the pancreatic head. 2. Other incidental findings as described above. Fleischner guidelines were followed.
--- NOTE | 2022-06-23 19:59 | ED_ITS ---
HPI - Abdominal Pain General Chief Complaint: Abdominal Pain <ANGEL Lpoez - Last Filed: 06/23/22 20:05> Stated Complaint: abd pain <ANGEL Lopez - Last Filed: 06/23/22 20:05> Time Seen by Provider: 06/23/22 21:20 <ANGEL Lopez - Last Filed: 06/23/22 20:05> Source: patient <Светлана Gonzalez MD - Last Filed: 06/24/22 00:23> Mode of arrival: ambulatory <Светлана Gonzalez MD - Last Filed: 06/24/22 00:23> Limitations: no limitations <Светлана Gonzalez MD - Last Filed: 06/24/22 00:23> History of Present Illness HPI narrative: 51-year-old male with past medical history of alcohol abuse, diabetes, history of pancreatitis, hypertension, seizures, presents to the ED c/o epigastric abdominal pain, N/V x today. Admits has been sick x few weeks and had seizure few day ago. denies being on seizure meds. Admits quit hard alcohol but still drinks beer last drink was a month ago. Admits this feels like his prior pancreatitis. denies fever <Светлана Gonzalez MD - Last Filed: 06/24/22 00:23> Related Data Home Medications: Home Medications Medication Instructions Recorded Confirmed metoprolol succinate 50 mg 50 mg PO DAILY 02/27/20 01/30/22 tablet,extended release 24 hr quetiapine 300 mg tablet 300 mg PO BEDTIME 02/27/20 01/30/22 trazodone 150 mg tablet 150 mg PO BEDTIME 02/27/20 01/30/22 empagliflozin 25 mg tablet 25 mg PO DAILY 05/22/20 01/30/22 (Jardiance) lisinopril 10 mg tablet 1 tab PO DAILY 11/04/20 01/30/22 sertraline 100 mg tablet 1 tab PO DAILY 06/23/21 01/30/22 multivitamin 1 tab PO DAILY 05/18/22 Previous Rx's Medication Instructions Recorded folic acid 1 mg tablet 1 mg PO DAILY #30 tabs 05/26/20 thiamine mononitrate (vit B1) 100 100 mg PO DAILY #30 tabs 05/26/20 mg tablet fenofibrate nanocrystallized 145 145 mg PO DAILY #30 tabs 11/19/21 mg tablet (Tricor) ondansetron 4 mg disintegrating 4 mg PO Q8H PRN nausea and 02/06/22 tablet vomiting #20 tabs <ANGEL Lopez - Last Filed: 06/23/22 20:05> Allergies/Adverse Reactions: Allergies Allergy/AdvReac Type Severity Reaction Status Date / Time sildenafil [From Viagra] Allergy Unknown Verified 06/23/22 20:00 <ANGEL Lopez - Last Filed: 06/23/22 20:05> Review of Systems Review of Systems All other systems are reviewed and are negative Constitutional: Reports as per HPI and Reports no additional constitutional complaints Eyes: Reports as per HPI and Reports no additional eye complaints Reports system reviewed and no additional complaints, except as documented Cardiovascular: Reports as per HPI and Reports no additional cardiovascular complaints Respiratory: Reports as per HPI and Reports no additional respiratory complaints Gastrointestinal: Reports as per HPI and Reports no additional gastrointestinal complaints Genitourinary: Reports no additional female genitourinary complaints Musculoskeletal: Reports no additional musculoskeletal complaints Skin/Breast: Reports system reviewed and no additional complaints, except as docu Psychiatric: Reports no additional psychiatric complaints Endocrine: Reports no additional endocrine complaints Hematologic/Lymphatic: Reports no additional hematologic/lymphatic complaints Allergic/Immunologic: Reports no additional allergic/immunologic complaints Reports system reviewed and no additional complaints, except as documented and Reports Abnormal speech present <Светлана Gonzalez MD - Last Filed: 06/24/22 00:23> [facility] Past Medical History Medical History: Medical History Alcohol abuse Alcohol withdrawal Arthritis Cocaine abuse Cocaine abuse Diabetes mellitus Duodenitis Hypertension Pancreatitis Seizures <ANGEL Lopez - Last Filed: 06/23/22 20:05> Surgical History: Surgical History H/O hernia repair <ANGEL Lopez - Last Filed: 06/23/22 20:05> Family History Family History: Family History Other CAD (coronary artery disease) Diabetes mellitus <ANGEL Lopez - Last Filed: 06/23/22 20:05> Social History Social History: Social History Household Members: None Housing: House Do you presently have visiting nurse or other home services: No Alcohol intake: current Alcohol intake frequency: former alcohol drinker Alcohol type: beer Patient Tobacco Use Status: Never used Tobacco Smoked in Last 30 Days: No Second Hand Smoke Exposure: No Use of substances other than those prescribed or required for medical reasons: No Substance Use Type: Prescription Drugs Advance Directives: Yes Advance Directives on File: Yes Advance Directives Date on File: 02/27/20 service: No Current occupational status: disabled <ANGEL Lopez - Last Filed: 06/23/22 20:05> Physical Exam ED Vital Signs: Vital Signs - 24 hr 06/23/22 20:00 06/23/22 22:08 06/23/22 22:05 Temperature 97.9 F 98.0 F Pulse Rate 80 73 Respiratory Rate 18 16 17 Blood Pressure 145/81 H 151/75 H Pulse Oximetry 97 94 Oxygen Delivery Method Room Air BMI result Body Mass Index 27.4 <ANGEL Lopez - Last Filed: 06/23/22 20:05> Vital Signs - 24 hr 06/23/22 20:00 06/23/22 22:08 06/23/22 22:05 Temperature 97.9 F 98.0 F Pulse Rate 80 73 Respiratory Rate 18 16 17 Blood Pressure 145/81 H 151/75 H Pulse Oximetry 97 94 Oxygen Delivery Method Room Air BMI result Body Mass Index 27.4 Vital signs have been reviewed as appeared to be correct. Blood pressure normal. Heart rate normal. Respiration rate normal. Temperature normal. Oxygen saturation normal. <Светлана Gonzalez MD - Last Filed: 06/24/22 00:23> Appearance: Alert. Oriented X3. No acute distress. Head: Normal external exam. Normocephalic. Atraumatic. No Gamez signs noted. No raccoon eyes noted Eyes: PERRLA. EOMI. Conjunctiva and sclera normal. Eyelids normal. ENT: TM's Normal. Pharynx normal. Uvula midline. Moist mucous membranes. No trismus noted. No drooling noted. No muffled voice noted. Neck: Normal inspection. Neck supple. FROM. No adenopathy. Thyroid Normal. No meningeal signs. No neck mass noted. CVS: Normal heart rate and rhythm. Heart sound normal. No murmurs noted. Pulses normal throughout. Respiratory: No respiratory distress. Painless inspiration. Breath sounds normal. No wheezes/rales/rhonchi noted. Chest nontender. No accessory muscle usage noted or decreased air movement noted. Abdomen: Soft , epigastric tenderness no rebound tenderness, no guarding. Bowel sounds normal in all 4 quadrants. No distention noted. No organomegaly noted. No visible injury noted. Back: No CVA tenderness. Full range of motion noted. Skin: Skin warm and dry. Normal skin color. Normal skin turgor. No rashes/lesions/lacerations noted. Extremities: No lower extremity edema. Extremities exhibit normal range of motion. Extremities nontender. Neuro: Oriented X 3. Cranial nerve exam: II-XII are grossly intact No motor deficit. No sensory deficit. Reflexes normal. <Светлана Gonzalez MD - Last Filed: 06/24/22 00:23> Course Course Course Narrative: RME: 51-year-old male with past medical history of alcohol abuse, diabetes, history of pancreatitis, hypertension, seizures, presents to the ED c/o epigastric abdominal pain, N/V x today. Admits has been sick x few weeks and had seizure few day ago. denies being on seizure meds. Admits quit hard alcohol but still drinks beer. Admits this feels like his prior pancreatitis. denies fever EKG, labs, UA, CXR, CT AP ordered Full HPI, ROS and PE to be performed by primary ED provider. <ANGEL Lopez - Last Filed: 06/23/22 20:05> Acute on chronic pancreatitis, no CT complication, required multiple IV Dilaudid to control pain, will admit for pain control. <Светлана Gonzalez MD - Last Filed: 06/24/22 00:23> Medical Decision Making Differential Diagnosis Differential Diagnoses: The differential diagnosis associated with the presentation includes (Complicated pancreatitis, electrolyte disturbance, dehydration, severe anemia, intra-abdominal pathology comorbidity.) <Светлана Gonzalez MD - Last Filed: 06/24/22 00:23> Admission/Observation Consideration of admission/observation: Escalation of care including admission/observation considered <Светлана Gonzalez MD - Last Filed: 06/24/22 00:23> Consult Healthcare Provider Management of the patient was discussed with: Hospitalist <Светлана Gonzalez MD - Last Filed: 06/24/22 00:23> Lab Data MDM Lab Attestation statement: I reviewed the patient's lab results. <Светлана Gonzalez MD - Last Filed: 06/24/22 00:23> Result Diagrams: 06/23/22 20:40 06/23/22 20:40 <ANGEL Lopez - Last Filed: 06/23/22 20:05> Labs: Lab Results 06/23/22 06/23/22 06/23/22 Range/Units 20:40 20:40 20:40 WBC 11.4 H (4.8-10.8) X10*3/uL RBC 4.27 L D (4.60-5.80) X10*6/uL Hgb 13.3 L D (14.0-18.0) g/dl Hct 38.0 L (42.0-52.0) % MCV 89.0 (80.0-98.0) fL MCH 31.1 (27.0-33.0) pg MCHC 35.0 (31.0-36.0) g/dl RDW 11.9 (11.0-16.0) % Plt Count 206 (160-400) X10*3/uL MPV 9.6 (9.4-12.4) fL Immature Gran % (Auto) 0.9 H (0.0-0.4) % Neut % (Auto) 65.9 (45-73) % Lymph % (Auto) 21.6 (20-40) % [place] % (Auto) 8.4 (2-11) % Eos % (Auto) 2.6 (0-4) % Baso % (Auto) 0.6 (0-2) % Lymph # (Auto) 2.5 (1.2-4.9) X10*3/uL [place] # (Auto) 1.0 (0.1-1.2) X10*3/uL Eos # (Auto) 0.3 (0.0-0.4) X10*3/uL Baso # (Auto) 0.1 (0.0-0.2) X10*3/uL Abs Immat Gran (auto) 0.10 H (0.00-0.03) X10*3/uL Absolute Neuts (auto) 7.5 (2.0-8.3) x10*3/uL Absolute Nucleated RBC 0.000 (0.0-0.012) X10*3/uL Nucleated RBC % (auto) 0.0 (0.0-0.2) /100WBC Sodium 136 (135-145) mmol/L Potassium 4.1 (3.3-5.1) mmol/L Chloride 102 (96-108) mmol/L Carbon Dioxide 26 (22-29) mmol/L Anion Gap 12 (12-20) BUN 16 (9-16) mg/dL Creatinine 1.01 (0.5-1.4) mg/dL Estim Creat Clear Calc 80.8 Estimated GFR > 60 Random Glucose 270 H (60-115) mg/dL Calcium 10.3 H D (8.4-10.2) mg/dL Magnesium 1.6 (1.6-2.6) mg/dL Total Bilirubin 0.7 (0.0-1.0) mg/dL Direct Bilirubin 0.2 (0.0-0.5) mg/dL AST 28 (5-37) U/L ALT 31 (0-40) U/L Alkaline Phosphatase 77 (39-117) U/L Troponin I High Sens 2.7 (<3.5-35.0) ng/L Total Protein 7.2 (6.5-8.0) g/dL Albumin 4.5 (3.5-5.0) g/dL Lipase 291 H (8-78) U/L Urine Color Urine Appearance Urine pH (5.0-9.0) Ur Specific [place] (1.005-1.025) Urine Protein (Neg-Trace) mg/dL Urine Glucose (UA) (Negative) mg/dL Urine Ketones (Negative) mg/dL Urine Blood (Negative) Urine Nitrite (Negative) Ur Leukocyte Esterase (Negative) Urine RBC (0-2) /HPF Urine WBC (0-5) /HPF Ur Squamous Epith Cells (0-2) /HPF Urine Bacteria (None Seen) Hyaline Casts (0-2) /LPF Urine Opiates Screen (Not Detect) Urine Fentanyl Screen (Not Detect) Ur Barbiturates Screen (Not Detect) Ur Phencyclidine Scrn (Not Detect) Ur Amphetamines Screen (Not Detect) U Benzodiazepines Scrn (Not Detect) Urine Cocaine Screen (Not Detect) U Marijuana (THC) Screen (Not Detect) Ethyl Alcohol < 10 mg/dL COVID-19 (BUD) (Negative) COVID-19 Clin Com Influenza Type A (JI) (Negative) Influenza Type B (JI) (Negative) Influenza A & B Note 06/23/22 06/23/22 06/23/22 Range/Units 20:40 20:40 21:31 WBC (4.8-10.8) X10*3/uL RBC (4.60-5.80) X10*6/uL Hgb (14.0-18.0) g/dl Hct (42.0-52.0) % MCV (80.0-98.0) fL MCH (27.0-33.0) pg MCHC (31.0-36.0) g/dl RDW (11.0-16.0) % Plt Count (160-400) X10*3/uL MPV (9.4-12.4) fL Immature Gran % (Auto) (0.0-0.4) % Neut % (Auto) (45-73) % Lymph % (Auto) (20-40) % [place] % (Auto) (2-11) % Eos % (Auto) (0-4) % Baso % (Auto) (0-2) % Lymph # (Auto) (1.2-4.9) X10*3/uL [place] # (Auto) (0.1-1.2) X10*3/uL Eos # (Auto) (0.0-0.4) X10*3/uL Baso # (Auto) (0.0-0.2) X10*3/uL Abs Immat Gran (auto) (0.00-0.03) X10*3/uL Absolute Neuts (auto) (2.0-8.3) x10*3/uL Absolute Nucleated RBC (0.0-0.012) X10*3/uL Nucleated RBC % (auto) (0.0-0.2) /100WBC Sodium (135-145) mmol/L Potassium (3.3-5.1) mmol/L Chloride (96-108) mmol/L Carbon Dioxide (22-29) mmol/L Anion Gap (12-20) BUN (9-16) mg/dL Creatinine (0.5-1.4) mg/dL Estim Creat Clear Calc Estimated GFR Random Glucose (60-115) mg/dL Calcium (8.4-10.2) mg/dL Magnesium (1.6-2.6) mg/dL Total Bilirubin (0.0-1.0) mg/dL Direct Bilirubin (0.0-0.5) mg/dL AST (5-37) U/L ALT (0-40) U/L Alkaline Phosphatase (39-117) U/L Troponin I High Sens (<3.5-35.0) ng/L Total Protein (6.5-8.0) g/dL Albumin (3.5-5.0) g/dL Lipase (8-78) U/L Urine Color Yellow Urine Appearance Clear Urine pH 5.5 (5.0-9.0) Ur Specific [place] >= 1.030 H (1.005-1.025) Urine Protein Negative (Neg-Trace) mg/dL Urine Glucose (UA) >=1000 H (Negative) mg/dL Urine Ketones Negative (Negative) mg/dL Urine Blood Negative (Negative) Urine Nitrite Negative (Negative) Ur Leukocyte Esterase Negative (Negative) Urine RBC 0-2 (0-2) /HPF Urine WBC 0-5 (0-5) /HPF Ur Squamous Epith Cells 0-2 (0-2) /HPF Urine Bacteria None Seen (None Seen) Hyaline Casts 0-2 (0-2) /LPF Urine Opiates Screen (Not Detect) Urine Fentanyl Screen (Not Detect) Ur Barbiturates Screen (Not Detect) Ur Phencyclidine Scrn (Not Detect) Ur Amphetamines Screen (Not Detect) U Benzodiazepines Scrn (Not Detect) Urine Cocaine Screen (Not Detect) U Marijuana (THC) Screen (Not Detect) Ethyl Alcohol mg/dL COVID-19 (BUD) Negative (Negative) COVID-19 Clin Com See Note Influenza Type A (JI) Negative (Negative) Influenza Type B (JI) Negative (Negative) Influenza A & B Note See Note 05/09/23 Range/Units 21:31 WBC (4.8-10.8) X10*3/uL RBC (4.60-5.80) X10*6/uL Hgb (14.0-18.0) g/dl Hct (42.0-52.0) % MCV (80.0-98.0) fL MCH (27.0-33.0) pg MCHC (31.0-36.0) g/dl RDW (11.0-16.0) % Plt Count (160-400) X10*3/uL MPV (9.4-12.4) fL Immature Gran % (Auto) (0.0-0.4) % Neut % (Auto) (45-73) % Lymph % (Auto) (20-40) % [place] % (Auto) (2-11) % Eos % (Auto) (0-4) % Baso % (Auto) (0-2) % Lymph # (Auto) (1.2-4.9) X10*3/uL [place] # (Auto) (0.1-1.2) X10*3/uL Eos # (Auto) (0.0-0.4) X10*3/uL Baso # (Auto) (0.0-0.2) X10*3/uL Abs Immat Gran (auto) (0.00-0.03) X10*3/uL Absolute Neuts (auto) (2.0-8.3) x10*3/uL Absolute Nucleated RBC (0.0-0.012) X10*3/uL Nucleated RBC % (auto) (0.0-0.2) /100WBC Sodium (135-145) mmol/L Potassium (3.3-5.1) mmol/L Chloride (96-108) mmol/L Carbon Dioxide (22-29) mmol/L Anion Gap (12-20) BUN (9-16) mg/dL Creatinine (0.5-1.4) mg/dL Estim Creat Clear Calc Estimated GFR Random Glucose (60-115) mg/dL Calcium (8.4-10.2) mg/dL Magnesium (1.6-2.6) mg/dL Total Bilirubin (0.0-1.0) mg/dL Direct Bilirubin (0.0-0.5) mg/dL AST (5-37) U/L ALT (0-40) U/L Alkaline Phosphatase (39-117) U/L Troponin I High Sens (<3.5-35.0) ng/L Total Protein (6.5-8.0) g/dL Albumin (3.5-5.0) g/dL Lipase (8-78) U/L Urine Color Urine Appearance Urine pH (5.0-9.0) Ur Specific [place] (1.005-1.025) Urine Protein (Neg-Trace) mg/dL Urine Glucose (UA) (Negative) mg/dL Urine Ketones (Negative) mg/dL Urine Blood (Negative) Urine Nitrite (Negative) Ur Leukocyte Esterase (Negative) Urine RBC (0-2) /HPF Urine WBC (0-5) /HPF Ur Squamous Epith Cells (0-2) /HPF Urine Bacteria (None Seen) Hyaline Casts (0-2) /LPF Urine Opiates Screen Not Detected (Not Detect) Urine Fentanyl Screen Not Detected (Not Detect) Ur Barbiturates Screen Not Detected (Not Detect) Ur Phencyclidine Scrn Not Detected (Not Detect) Ur Amphetamines Screen Not Detected (Not Detect) U Benzodiazepines Scrn Not Detected (Not Detect) Urine Cocaine Screen POSITIVE H (Not Detect) U Marijuana (THC) Screen Not Detected (Not Detect) Ethyl Alcohol mg/dL COVID-19 (BUD) (Negative) COVID-19 Clin Com Influenza Type A (JI) (Negative) Influenza Type B (JI) (Negative) Influenza A & B Note <ANGEL Lopez - Last Filed: 06/23/22 20:05> Lab Results 06/23/22 06/23/22 06/23/22 Range/Units 20:40 20:40 20:40 WBC 11.4 H (4.8-10.8) X10*3/uL RBC 4.27 L D (4.60-5.80) X10*6/uL Hgb 13.3 L D (14.0-18.0) g/dl Hct 38.0 L (42.0-52.0) % MCV 89.0 (80.0-98.0) fL MCH 31.1 (27.0-33.0) pg MCHC 35.0 (31.0-36.0) g/dl RDW 11.9 (11.0-16.0) % Plt Count 206 (160-400) X10*3/uL MPV 9.6 (9.4-12.4) fL Immature Gran % (Auto) 0.9 H (0.0-0.4) % Neut % (Auto) 65.9 (45-73) % Lymph % (Auto) 21.6 (20-40) % [place] % (Auto) 8.4 (2-11) % Eos % (Auto) 2.6 (0-4) % Baso % (Auto) 0.6 (0-2) % Lymph # (Auto) 2.5 (1.2-4.9) X10*3/uL [place] # (Auto) 1.0 (0.1-1.2) X10*3/uL Eos # (Auto) 0.3 (0.0-0.4) X10*3/uL Baso # (Auto) 0.1 (0.0-0.2) X10*3/uL Abs Immat Gran (auto) 0.10 H (0.00-0.03) X10*3/uL Absolute Neuts (auto) 7.5 (2.0-8.3) x10*3/uL Absolute Nucleated RBC 0.000 (0.0-0.012) X10*3/uL Nucleated RBC % (auto) 0.0 (0.0-0.2) /100WBC Sodium 136 (135-145) mmol/L Potassium 4.1 (3.3-5.1) mmol/L Chloride 102 (96-108) mmol/L Carbon Dioxide 26 (22-29) mmol/L Anion Gap 12 (12-20) BUN 16 (9-16) mg/dL Creatinine 1.01 (0.5-1.4) mg/dL Estim Creat Clear Calc 80.8 Estimated GFR > 60 Random Glucose 270 H (60-115) mg/dL Calcium 10.3 H D (8.4-10.2) mg/dL Magnesium 1.6 (1.6-2.6) mg/dL Total Bilirubin 0.7 (0.0-1.0) mg/dL Direct Bilirubin 0.2 (0.0-0.5) mg/dL AST 28 (5-37) U/L ALT 31 (0-40) U/L Alkaline Phosphatase 77 (39-117) U/L Troponin I High Sens 2.7 (<3.5-35.0) ng/L Total Protein 7.2 (6.5-8.0) g/dL Albumin 4.5 (3.5-5.0) g/dL Lipase 291 H (8-78) U/L Urine Color Urine Appearance Urine pH (5.0-9.0) Ur Specific [place] (1.005-1.025) Urine Protein (Neg-Trace) mg/dL Urine Glucose (UA) (Negative) mg/dL Urine Ketones (Negative) mg/dL Urine Blood (Negative) Urine Nitrite (Negative) Ur Leukocyte Esterase (Negative) Urine RBC (0-2) /HPF Urine WBC (0-5) /HPF Ur Squamous Epith Cells (0-2) /HPF Urine Bacteria (None Seen) Hyaline Casts (0-2) /LPF Urine Opiates Screen (Not Detect) Urine Fentanyl Screen (Not Detect) Ur Barbiturates Screen (Not Detect) Ur Phencyclidine Scrn (Not Detect) Ur Amphetamines Screen (Not Detect) U Benzodiazepines Scrn (Not Detect) Urine Cocaine Screen (Not Detect) U Marijuana (THC) Screen (Not Detect) Ethyl Alcohol < 10 mg/dL COVID-19 (BUD) (Negative) COVID-19 Clin Com Influenza Type A (JI) (Negative) Influenza Type B (JI) (Negative) Influenza A & B Note 06/23/22 06/23/22 06/23/22 Range/Units 20:40 20:40 21:31 WBC (4.8-10.8) X10*3/uL RBC (4.60-5.80) X10*6/uL Hgb (14.0-18.0) g/dl Hct (42.0-52.0) % MCV (80.0-98.0) fL MCH (27.0-33.0) pg MCHC (31.0-36.0) g/dl RDW (11.0-16.0) % Plt Count (160-400) X10*3/uL MPV (9.4-12.4) fL Immature Gran % (Auto) (0.0-0.4) % Neut % (Auto) (45-73) % Lymph % (Auto) (20-40) % [place] % (Auto) (2-11) % Eos % (Auto) (0-4) % Baso % (Auto) (0-2) % Lymph # (Auto) (1.2-4.9) X10*3/uL [place] # (Auto) (0.1-1.2) X10*3/uL Eos # (Auto) (0.0-0.4) X10*3/uL Baso # (Auto) (0.0-0.2) X10*3/uL Abs Immat Gran (auto) (0.00-0.03) X10*3/uL Absolute Neuts (auto) (2.0-8.3) x10*3/uL Absolute Nucleated RBC (0.0-0.012) X10*3/uL Nucleated RBC % (auto) (0.0-0.2) /100WBC Sodium (135-145) mmol/L Potassium (3.3-5.1) mmol/L Chloride (96-108) mmol/L Carbon Dioxide (22-29) mmol/L Anion Gap (12-20) BUN (9-16) mg/dL Creatinine (0.5-1.4) mg/dL Estim Creat Clear Calc Estimated GFR Random Glucose (60-115) mg/dL Calcium (8.4-10.2) mg/dL Magnesium (1.6-2.6) mg/dL Total Bilirubin (0.0-1.0) mg/dL Direct Bilirubin (0.0-0.5) mg/dL AST (5-37) U/L ALT (0-40) U/L Alkaline Phosphatase (39-117) U/L Troponin I High Sens (<3.5-35.0) ng/L Total Protein (6.5-8.0) g/dL Albumin (3.5-5.0) g/dL Lipase (8-78) U/L Urine Color Yellow Urine Appearance Clear Urine pH 5.5 (5.0-9.0) Ur Specific [place] >= 1.030 H (1.005-1.025) Urine Protein Negative (Neg-Trace) mg/dL Urine Glucose (UA) >=1000 H (Negative) mg/dL Urine Ketones Negative (Negative) mg/dL Urine Blood Negative (Negative) Urine Nitrite Negative (Negative) Ur Leukocyte Esterase Negative (Negative) Urine RBC 0-2 (0-2) /HPF Urine WBC 0-5 (0-5) /HPF Ur Squamous Epith Cells 0-2 (0-2) /HPF Urine Bacteria None Seen (None Seen) Hyaline Casts 0-2 (0-2) /LPF Urine Opiates Screen (Not Detect) Urine Fentanyl Screen (Not Detect) Ur Barbiturates Screen (Not Detect) Ur Phencyclidine Scrn (Not Detect) Ur Amphetamines Screen (Not Detect) U Benzodiazepines Scrn (Not Detect) Urine Cocaine Screen (Not Detect) U Marijuana (THC) Screen (Not Detect) Ethyl Alcohol mg/dL COVID-19 (BUD) Negative (Negative) COVID-19 Clin Com See Note Influenza Type A (JI) Negative (Negative) Influenza Type B (JI) Negative (Negative) Influenza A & B Note See Note 06/23/22 Range/Units 21:31 WBC (4.8-10.8) X10*3/uL RBC (4.60-5.80) X10*6/uL Hgb (14.0-18.0) g/dl Hct (42.0-52.0) % MCV (80.0-98.0) fL MCH (27.0-33.0) pg MCHC (31.0-36.0) g/dl RDW (11.0-16.0) % Plt Count (160-400) X10*3/uL MPV (9.4-12.4) fL Immature Gran % (Auto) (0.0-0.4) % Neut % (Auto) (45-73) % Lymph % (Auto) (20-40) % [place] % (Auto) (2-11) % Eos % (Auto) (0-4) % Baso % (Auto) (0-2) % Lymph # (Auto) (1.2-4.9) X10*3/uL [place] # (Auto) (0.1-1.2) X10*3/uL Eos # (Auto) (0.0-0.4) X10*3/uL Baso # (Auto) (0.0-0.2) X10*3/uL Abs Immat Gran (auto) (0.00-0.03) X10*3/uL Absolute Neuts (auto) (2.0-8.3) x10*3/uL Absolute Nucleated RBC (0.0-0.012) X10*3/uL Nucleated RBC % (auto) (0.0-0.2) /100WBC Sodium (135-145) mmol/L Potassium (3.3-5.1) mmol/L Chloride (96-108) mmol/L Carbon Dioxide (22-29) mmol/L Anion Gap (12-20) BUN (9-16) mg/dL Creatinine (0.5-1.4) mg/dL Estim Creat Clear Calc Estimated GFR Random Glucose (60-115) mg/dL Calcium (8.4-10.2) mg/dL Magnesium (1.6-2.6) mg/dL Total Bilirubin (0.0-1.0) mg/dL Direct Bilirubin (0.0-0.5) mg/dL AST (5-37) U/L ALT (0-40) U/L Alkaline Phosphatase (39-117) U/L Troponin I High Sens (<3.5-35.0) ng/L Total Protein (6.5-8.0) g/dL Albumin (3.5-5.0) g/dL Lipase (8-78) U/L Urine Color Urine Appearance Urine pH (5.0-9.0) Ur Specific [place] (1.005-1.025) Urine Protein (Neg-Trace) mg/dL Urine Glucose (UA) (Negative) mg/dL Urine Ketones (Negative) mg/dL Urine Blood (Negative) Urine Nitrite (Negative) Ur Leukocyte Esterase (Negative) Urine RBC (0-2) /HPF Urine WBC (0-5) /HPF Ur Squamous Epith Cells (0-2) /HPF Urine Bacteria (None Seen) Hyaline Casts (0-2) /LPF Urine Opiates Screen Not Detected (Not Detect) Urine Fentanyl Screen Not Detected (Not Detect) Ur Barbiturates Screen Not Detected (Not Detect) Ur Phencyclidine Scrn Not Detected (Not Detect) Ur Amphetamines Screen Not Detected (Not Detect) U Benzodiazepines Scrn Not Detected (Not Detect) Urine Cocaine Screen POSITIVE H (Not Detect) U Marijuana (THC) Screen Not Detected (Not Detect) Ethyl Alcohol mg/dL COVID-19 (BUD) (Negative) COVID-19 Clin Com Influenza Type A (JI) (Negative) Influenza Type B (JI) (Negative) Influenza A & B Note <Светлана Gonzalez MD - Last Filed: 06/24/22 00:23> Independent Interpretation I performed an independent interpretation of an: CT Scan (Abdomen and pelvis:1. Dramatic improvement in appearance of the pancreas since the prior study with resolution of most of the peripancreatic i nflammatory changes. Some minimal changes persist around the pancreatic head. 2. Other incidental findings as described above. ) <Светлана Gonzalez MD - Last Filed: 06/24/22 00:23> Radiology Impression Discussion of test interpretation with radiology: I have reviewed the radiologist's reading. <Светлана Gonzalez MD - Last Filed: 06/24/22 00:23> Chronic Conditions Patient?s care impacted by: Other (Pancreatitis) <Светлана Gonzalez MD - Last Filed: 06/24/22 00:23> Medications Administered Discontinued Medications Generic Name Dose Route Start Last Admin Trade Name Freq PRN Reason Stop Dose Admin Al Hydroxide/Mg Hydroxide 30 ml 06/23/22 21:40 06/23/22 22:08 Magnesium Hydrox/Alum Hydrox 30 Ml Oral.Susp PO 06/23/22 21:41 30 ml ONCE ONE Administration Famotidine 20 mg 06/23/22 21:40 06/23/22 22:08 Famotidine/Pf 20 Mg/2 Ml Vial IVPUSH 06/23/22 21:41 20 mg ONCE ONE Administration Hydromorphone HCl 2 mg 06/23/22 21:40 06/23/22 22:08 Hydromorphone Hcl 2 Mg/Ml Vial IVPUSH 06/23/22 21:41 2 mg ONCE ONE Administration Protocol Hydromorphone HCl 1 mg 06/23/22 23:08 06/23/22 23:37 Hydromorphone Hcl 1 Mg/Ml Syringe IVPUSH 06/23/22 23:09 1 mg ONCE ONE Administration Protocol Sodium Chloride 1,000 mls @ 999 mls/hr 06/23/22 21:40 06/23/22 22:43 Ns IV 06/23/22 22:40 999 mls/hr .[id number] ONE Administration Iohexol 85 ml 06/23/22 23:29 06/23/22 23:29 Iohexol 350 Mg/Ml 100 Ml Infus..Btl IV 06/23/22 23:30 85 ml ONCE ONE Administration <ANGEL Lopez - Last Filed: 06/23/22 20:05> Medications Administered Discontinued Medications Generic Name Dose Route Start Last Admin Trade Name Boo PRN Reason Stop Dose Admin Al Hydroxide/Mg Hydroxide 30 ml 06/23/22 21:40 06/23/22 22:08 Magnesium Hydrox/Alum Hydrox 30 Ml Oral.Susp PO 06/23/22 21:41 30 ml ONCE ONE Administration Famotidine 20 mg 06/23/22 21:40 06/23/22 22:08 Famotidine/Pf 20 Mg/2 Ml Vial IVPUSH 06/23/22 21:41 20 mg ONCE ONE Administration Hydromorphone HCl 2 mg 06/23/22 21:40 06/23/22 22:08 Hydromorphone Hcl 2 Mg/Ml Vial IVPUSH 06/23/22 21:41 2 mg ONCE ONE Administration Protocol Hydromorphone HCl 1 mg 06/23/22 23:08 06/23/22 23:37 Hydromorphone Hcl 1 Mg/Ml Syringe IVPUSH 06/23/22 23:09 1 mg ONCE ONE Administration Protocol Sodium Chloride 1,000 mls @ 999 mls/hr 06/23/22 21:40 06/23/22 22:43 Ns IV 06/23/22 22:40 999 mls/hr .Q1H1M ONE Administration Iohexol 85 ml 06/23/22 23:29 06/23/22 23:29 Iohexol 350 Mg/Ml 100 Ml Infus..Btl IV 06/23/22 23:30 85 ml ONCE ONE Administration <Светлана Gonzalez MD - Last Filed: 06/24/22 00:23> Discharge Plan Discharge Clinical Impression: Acute pancreatitis <ANGEL Lopez - Last Filed: 06/23/22 20:05> Patient Disposition: Admitted As Inpatient <ANGEL Lopez - Last Filed: 06/23/22 20:05>
[2022-06-23 20:00] VITALS: BP 145/81; BP 162/90; PULSE 78; PULSE 80; RESP 18; TEMP 36.6; O2SAT 97; O2SAT 99; BMI 27.4
--- NOTE | 2022-06-23 20:03 | ECG_ITS ---
Test Reason : ABD PAIN Blood Pressure : / mmHG Vent. Rate : 077 BPM Atrial Rate : 077 BPM P-R Int : 180 ms QRS Dur : 092 ms QT Int : 368 ms P-R-T Axes : 045 -06 -04 degrees QTc Int : 416 ms Sinus rhythm with occasional Premature ventricular complexes Borderline ECG When compared with ECG of 23-JUN-2021 07:19, Premature ventricular complexes are now Present QT has shortened Referred By: Dorcas Jackson Electronically Signed By:PATRICIA MOTLEY
[2022-06-23 20:47] LABS: MANUAL DIFF FLAG NO
[2022-06-23 20:48] LABS: Basophils Absolute Auto 0.1 X10*3/uL (0.0-0.2); Basophils Percent Auto 0.6 % (0-2); Eosinophils Absolute Auto 0.3 X10*3/uL (0.0-0.4); Eosinophils Percent Auto 2.6 % (0-4); Hemoglobin 13.3 g/dl (14.0-18.0); Imm Gran Pct Auto 0.9 % (0.0-0.4); Lymphocytes Absolute Auto 2.5 X10*3/uL (1.2-4.9); Lymphocytes Percent Auto 21.6 % (20-40); Mean Corpuscular Hemoglobin 31.1 pg (27.0-33.0); Mean Platelet Volume 9.6 fL (9.4-12.4); Monocytes Percent Auto 8.4 % (2-11); Neutrophils Absolute Auto 7.5 x10*3/uL (2.0-8.3); Neutrophils Percent Auto 65.9 % (45-73); Platelet Count 206 X10*3/uL (160-400); Red Blood Count 4.27 X10*6/uL (4.60-5.80); Red Cell Distribution Width 11.9 % (11.0-16.0); White Blood Count 11.4 X10*3/uL (4.8-10.8)
[2022-06-23 21:05] LABS: Alanine Aminotransferase 31 U/L (0-40); Albumin Level 4.5 g/dL (3.5-5.0); Alkaline Phosphatase 77 U/L (39-117); Anion Gap 12 (12-20); Aspartate Amino Transferase 28 U/L (5-37); Bilirubin Direct 0.2 mg/dL (0.0-0.5); Bilirubin Total 0.7 mg/dL (0.0-1.0); Blood Urea Nitrogen 16 mg/dL (9-16); COVID-19 Test Negative (Negative); Calcium 10.3 mg/dL (8.4-10.2); Carbon Dioxide 26 mmol/L (22-29); Chloride 102 mmol/L (96-108); Creatinine Clr Calc Pharmacy 80.8; Estimated Glomerular Filt Rate > 60; Ethanol < 10 mg/dL; Glucose Random 270 mg/dL (60-115); IDNOW Serial# 08D9AD1C; IDNOW Serial# BCCEAD1C; Influenza A Negative (Negative); Influenza B2 Negative (Negative); Lipase 291 U/L (8-78); Magnesium 1.6 mg/dL (1.6-2.6); Potassium 4.1 mmol/L (3.3-5.1); Sodium 136 mmol/L (135-145); Total Protein 7.2 g/dL (6.5-8.0)
[2022-06-23 21:09] LABS: Troponin-I High Sensitivity 2.7 ng/L (<3.5-35.0)
--- NOTE | 2022-06-23 21:38 | PC.NURSE ---
pt a&o, denies any sob or chest pain, pt reports 10/10 abd pain. pt changed into hospital attire, Noticed Dr Gonzalez, Will continue monitor
[2022-06-23 21:48] LABS: Appearance Urine Clear; Color Urine Yellow; Glucose Urine UA >=1000 mg/dL (Negative); Leukocyte Esterase Urine Negative (Negative); Nitrite Urine Negative (Negative); PH 5.5 (5.0-9.0); Specific Gravity - Urine >= 1.030 (1.005-1.025); Urine Blood Negative (Negative); Urine Ketones Negative (Negative); Urine Protein Negative (Neg-Trace)
[2022-06-23 21:49] LABS: UMIC TRIGGER UACC YES
[2022-06-23 21:54] LABS: Bacteria Urine None Seen (None Seen); Hyaline Casts Urine 0-2 /LPF (0-2); RBC Urine 0-2 /HPF (0-2); Squamous Epithelial Cell Urine 0-2 /HPF (0-2); WBC Urine 0-5 /HPF (0-5)
[2022-06-23 21:58] LABS: Amphetamine Screen Urine Not Detected (Not Detect); Barbiturates, Urine Not Detected (Not Detect); Benzodiazepines Screen Urine Not Detected (Not Detect); Cannabinoid Screen Urine Not Detected (Not Detect); Cocaine Screen Urine POSITIVE (Not Detect); Fentanyl, urine Not Detected (Not Detect); Opiate Screen Urine Not Detected (Not Detect); Phencyclidine Screen Urine Not Detected (Not Detect)
[2022-06-23 22:05] VITALS: BP 151/75; PULSE 73; RESP 17; TEMP 36.7; O2SAT 94
[2022-06-23 22:08] VITALS: RESP 16
[2022-06-23] MEDS: HYDROmorphone HCl 2 MG/ML VIAL IVPUSH (22:08)
[2022-06-23] MEDS: Famotidine/PF 20 MG/2 ML VIAL IVPUSH (22:08)
[2022-06-23] MEDS: Magnesium Hydrox/Alum Hydrox 30 ML ORAL.SUSP PO (22:08)
--- NOTE | 2022-06-23 22:15 | PC.NURSE ---
Pt ca&ox3. Pt reports 10/10 pain in abdm that radiates to chest and spine. Pt given meds per apr. Will continue to monitor.
[2022-06-23] MEDS: 0.9 % Sodium Chloride 1,000 ML 999 ML IV (22:43)
--- NOTE | 2022-06-23 22:46 | PC.NURSE ---
Pt reports 09/24 pain. Pt ca&ox3. Pt given meds per apr. Hob lowered per pts request. Pt resting comfortably. No signs of distress. Will continue to monitor.
[2022-06-23] MEDS: iohexoL 350 MG/ML 100 ML INFUS..BTL 85 ML IV (23:29)
[2022-06-23] MEDS: HYDROmorphone HCl 1 MG/ML SYRINGE IVPUSH (23:37)
--- NOTE | 2022-06-23 23:40 | PC.NURSE ---
pt medicated per Mar, will continue to monitor.
[2022-06-24 00:25] VITALS: BP 118/72; PULSE 55; RESP 16; TEMP 36.4; O2SAT 96
--- NOTE | 2022-06-24 01:36 | PM.IMHP ---
History of Present Illness Date of Service: 06/24/22 Chief Complaint: abdominal pain This is a 52 year old male with pertinent history of alcohol use disorder with history of alcoholic pancreatitis, mood disorder, tvz-iryeetp-bxuvqrweo diabetes mellitus, mixed hyperlipidemia, essential hypertension who presents to the emergency department for evaluation of epigastric pain. Patient states it started on the day of presentation, radiating to the back, progressive and without any relieving factors. Patient states he has been having nausea and nonbloody emesis associated with the pain. Patient states it feels like his typical pancreatitis pain. States he tried quitting vodka but continues to have beers every day due to stress in his life. He denies fever, chills, chest discomfort, palpitations, shortness of breath, changes in urinary or bowel habits. In the emergency department, patient requiring multiple IV opioid pushes for pain control and lipase was found to be elevated Review of Systems Constitutional: Constitutional: Reports fatigue Cardiovascular: Cardiovascular: Reports no additional cardiovascular complaints Respiratory: Respiratory: Reports no additional respiratory complaints Gastrointestinal: Gastrointestinal: Reports abdominal pain, Reports nausea and Reports vomiting Genitourinary: Genitourinary: Reports no additional male genitourinary complaints Endocrine: Endocrine: Reports fatigue [facility] Medical History Alcohol abuse Alcohol withdrawal Arthritis Cocaine abuse Cocaine abuse Diabetes mellitus Duodenitis Hypertension Pancreatitis Seizures Family History Other CAD (coronary artery disease) Diabetes mellitus Surgical History H/O hernia repair Social History Household Members: None Housing: House Do you presently have visiting nurse or other home services: No Alcohol intake: current Alcohol intake frequency: former alcohol drinker Alcohol type: beer Patient Tobacco Use Status: Never used Tobacco Smoked in Last 30 Days: No Second Hand Smoke Exposure: No Use of substances other than those prescribed or required for medical reasons: No Substance Use Type: Prescription Drugs Have you been hit, kicked, punched, or otherwise hurt by someone within the past year? If so, by whom?: No Do you feel safe in your current relationship?: No Is there a partner from a previous relationship who is making you feel unsafe now?: No Advance Directives: Yes Advance Directives on File: Yes Advance Directives Date on File: 02/27/20 Do you have thoughts of harming others: None Do you have a plan to hurt others: No Plan Recently lost weight without trying: No How much weight loss: Not applicable Eating poorly because of decreased appetite: No Nutrition screen score: 0 service: No Current occupational status: disabled Meds Allergies Allergy/AdvReac Type Severity Reaction Status Date / Time sildenafil [From Viagra] Allergy Unknown Verified 06/23/22 20:00 Active Medications: Current Medications Acetaminophen (Acetaminophen 325 Mg Tablet) 650 mg PO Q6H PRN PRN Reason: Pain, Mild (Pain Scale 1-3) Enoxaparin Sodium (Enoxaparin Sodium 40 Mg/0.4 Ml Syringe) 40 mg SUBCUT Q24H [facility] Glucose (Glucose Gel 15 Gm Gel..Gram.) 15 gm PO Q15M PRN; Protocol PRN Reason: per Hypoglycemia Standing Ord. Dextrose (D10) 250 mls @ 750 mls/hr IV Q15M PRN; Protocol PRN Reason: per Hypoglycemia Standing Ord. Sodium Chloride (Ns) 500 mls @ 500 mls/hr IV .Q1H ONE Stop: 06/24/22 02:28 Insulin Human Lispro (Insulin Lispro 100 Unit/Ml 3 Ml Vial) 0 unit SUBCUT QIDACHS [facility]; Protocol Melatonin (Melatonin 3 Mg Tablet) 6 mg PO BEDTIME PRN PRN Reason: Insomnia Morphine Sulfate (Morphine Sulfate 4 Mg/Ml Cartridge) 4 mg IVPUSH Q4H PRN; Protocol PRN Reason: Pain, Severe (Pain Scale 7-10) Ondansetron HCl (Ondansetron Hcl 4 Mg/2 Ml Vial) 4 mg IVPUSH Q8H PRN PRN Reason: Nausea and Vomiting Pharmacy Consult (Consult Rx Perform Med Rec) 1 each MISCELLANE ONCE PRN PRN Reason: Consult order Sodium Chloride (0.9 % Sodium Chloride Flush 3 Ml Syringe) [facility] Medications Medication Instructions Recorded Confirmed Last Taken Type metoprolol succinate 50 mg 50 mg PO DAILY 02/27/20 01/30/22 08/05/21 History tablet,extended release 24 hr quetiapine 300 mg tablet 300 mg PO BEDTIME 02/27/20 01/30/22 08/04/21 History trazodone 150 mg tablet 150 mg PO BEDTIME 02/27/20 01/30/22 08/04/21 History empagliflozin 25 mg tablet 25 mg PO DAILY 05/22/20 01/30/22 08/05/21 History (Jardiance) lisinopril 10 mg tablet 1 tab PO DAILY 11/04/20 01/30/22 08/05/21 History sertraline 100 mg tablet 1 tab PO DAILY 06/23/21 01/30/22 08/05/21 History multivitamin 1 tab PO DAILY 05/18/22 Unknown History Physical Exam Vital Signs and Narrative: Vital Signs: Last Vital Signs Temp 97.5 F 06/24/22 00:25 Pulse 55 06/24/22 00:25 Resp 16 06/24/22 00:25 BP 118/72 06/24/22 00:25 Pulse Ox 96 06/24/22 00:25 O2 Del Method Room Air 06/23/22 20:00 BMI result Body Mass Index 27.4 Middle-aged male lying in bed in mild distress Neck supple, no JVD Regular rate and rhythm, S1-S2 heard Regular breath sounds bilaterally, no wheezing or crackles appreciated Abdomen with epigastric tenderness, no guarding, no rigidity, no rebound tenderness Patient is awake, alert and oriented to self, place, time and person ; no focal motor deficit Psych: Normal mood No pedal edema Results Labs 06/23/22 20:40 06/23/22 20:40 Labs: Laboratory Results - last 24 hr 06/23/22 06/23/22 06/23/22 20:40 20:40 20:40 MCV 89.0 MCH 31.1 MCHC 35.0 RDW 11.9 Plt Count 206 MPV 9.6 Immature Gran % (Auto) 0.9 H Neut % (Auto) 65.9 Lymph % (Auto) 21.6 [place] % (Auto) 8.4 Eos % (Auto) 2.6 Baso % (Auto) 0.6 Lymph # (Auto) 2.5 [place] # (Auto) 1.0 Eos # (Auto) 0.3 Baso # (Auto) 0.1 Abs Immat Gran (auto) 0.10 H Absolute Neuts (auto) 7.5 Absolute Nucleated RBC 0.000 Nucleated RBC % (auto) 0.0 Anion Gap 12 Estim Creat Clear Calc 80.8 Estimated GFR > 60 Random Glucose 270 H Calcium 10.3 H D Magnesium 1.6 Total Bilirubin 0.7 Direct Bilirubin 0.2 AST 28 ALT 31 Alkaline Phosphatase 77 Troponin I High Sens 2.7 Total Protein 7.2 Albumin 4.5 Lipase 291 H Urine Color Urine Appearance Urine pH Ur Specific [place] Urine Protein Urine Glucose (UA) Urine Ketones Urine Blood Urine Nitrite Ur Leukocyte Esterase Urine RBC Urine WBC Ur Squamous Epith Cells Urine Bacteria Hyaline Casts Urine Opiates Screen Urine Fentanyl Screen Ur Barbiturates Screen Ur Phencyclidine Scrn Ur Amphetamines Screen U Benzodiazepines Scrn Urine Cocaine Screen U Marijuana (THC) Screen Ethyl Alcohol < 10 COVID-19 (BUD) COVID-19 Clin Com Influenza Type A (JI) Influenza Type B (JI) Influenza A & B Note 06/23/22 06/23/22 06/23/22 20:40 20:40 21:31 MCV MCH MCHC RDW Plt Count MPV Immature Gran % (Auto) Neut % (Auto) Lymph % (Auto) [place] % (Auto) Eos % (Auto) Baso % (Auto) Lymph # (Auto) [place] # (Auto) Eos # (Auto) Baso # (Auto) Abs Immat Gran (auto) Absolute Neuts (auto) Absolute Nucleated RBC Nucleated RBC % (auto) Anion Gap Estim Creat Clear Calc Estimated GFR Random Glucose Calcium Magnesium Total Bilirubin Direct Bilirubin AST ALT Alkaline Phosphatase Troponin I High Sens Total Protein Albumin Lipase Urine Color Yellow Urine Appearance Clear Urine pH 5.5 Ur Specific [place] >= 1.030 H Urine Protein Negative Urine Glucose (UA) >=1000 H Urine Ketones Negative Urine Blood Negative Urine Nitrite Negative Ur Leukocyte Esterase Negative Urine RBC 0-2 Urine WBC 0-5 Ur Squamous Epith Cells 0-2 Urine Bacteria None Seen Hyaline Casts 0-2 Urine Opiates Screen Urine Fentanyl Screen Ur Barbiturates Screen Ur Phencyclidine Scrn Ur Amphetamines Screen U Benzodiazepines Scrn Urine Cocaine Screen U Marijuana (THC) Screen Ethyl Alcohol COVID-19 (BUD) Negative COVID-19 Clin Com See Note Influenza Type A (JI) Negative Influenza Type B (JI) Negative Influenza A & B Note See Note 06/23/22 21:31 MCV MCH MCHC RDW Plt Count MPV Immature Gran % (Auto) Neut % (Auto) Lymph % (Auto) [place] % (Auto) Eos % (Auto) Baso % (Auto) Lymph # (Auto) [place] # (Auto) Eos # (Auto) Baso # (Auto) Abs Immat Gran (auto) Absolute Neuts (auto) Absolute Nucleated RBC Nucleated RBC % (auto) Anion Gap Estim Creat Clear Calc Estimated GFR Random Glucose Calcium Magnesium Total Bilirubin Direct Bilirubin AST ALT Alkaline Phosphatase Troponin I High Sens Total Protein Albumin Lipase Urine Color Urine Appearance Urine pH Ur Specific [place] Urine Protein Urine Glucose (UA) Urine Ketones Urine Blood Urine Nitrite Ur Leukocyte Esterase Urine RBC Urine WBC Ur Squamous Epith Cells Urine Bacteria Hyaline Casts Urine Opiates Screen Not Detected Urine Fentanyl Screen Not Detected Ur Barbiturates Screen Not Detected Ur Phencyclidine Scrn Not Detected Ur Amphetamines Screen Not Detected U Benzodiazepines Scrn Not Detected Urine Cocaine Screen POSITIVE H U Marijuana (THC) Screen Not Detected Ethyl Alcohol COVID-19 (BUD) COVID-19 Clin Com Influenza Type A (JI) Influenza Type B (JI) Influenza A & B Note Imaging Radiologist's Impressions: Impressions Chest X-Ray 06/23/22 20:28 IMPRESSION: No evidence for acute disease in the chest. Abdomen Ultrasound 06/23/22 22:22 IMPRESSION: Slightly echogenic liver. Nonvisualization of the pancreas. Abdomen/Pelvis CT 06/23/22 23:30 IMPRESSION: 1. Dramatic improvement in appearance of the pancreas since the prior study with resolution of most of the peripancreatic inflammatory changes. Some minimal changes persist around the pancreatic head. 2. Other incidental findings as described above. Fleischner guidelines were followed. Assessment and Plan (1) Acute pancreatitis: Status: Acute Plan This is a 52 year old male with pertinent history of alcohol use disorder with history of alcoholic pancreatitis, mood disorder, ake-hdjxbma-igtpmzhpa diabetes mellitus, mixed hyperlipidemia, essential hypertension who presents to the emergency department for evaluation of epigastric pain. #. Acute alcoholic pancreatitis. Patient with typical epigastric pain and lipase elevated more than 3 times upper limit of normal. Will admit patient with IV p.r.n. opioids and continue IV fluid resuscitation. Full liquid diet and advance as tolerated. Triglyceride pending #. Alcohol use disorder: Continue thiamine and folic acid. Monitor CIWA #. vux-oeuwxif-nfwvrocca diabetes mellitus with hyperglycemia: Initiating Accu-Cheks with sliding scale insulin #. mood disorder: Continue Seroquel and Zoloft #. mixed hyperlipidemia: Continue Tricor #. cocaine use disorder: Consulted Addiction Team. Monitor for withdrawal. Avoid beta-ray #. essential hypertension: hold beta-ray as above and continue lisinopril med rec pending DVT prophylaxis: Lovenox Full liquid diet. Advance as tolerated Full code Admit as inpatient and will require two night minimum hospital stay for management of acute pancreatitis with IV fluids, IV pain controlled and diet advancement Time Spent With Patient Time: Total time managing care of this patient today ____ minutes. Quality Stroke Does the patient have a stroke diagnosis?: No VTE Prior VTE?: No VTE Risk Level:: Medical - moderate - high VTE Device Contraindication: Treatment Not Indicated VTE Drug Contraindication: N/A - Med Ordered
[2022-06-24] MEDS: 0.9 % Sodium Chloride 500 ML IV (01:51)
[2022-06-24] MEDS: Morphine Sulfate 4 MG/ML CARTRIDGE IVPUSH ×2 (01:51→06:04)
--- NOTE | 2022-06-24 01:54 | PC.NURSE ---
pt medicated to pain management, Will continue to monitor
[2022-06-24 02:15] LABS: Triglycerides 297 mg/dL
[2022-06-24 02:39] VITALS: BP 112/68; PULSE 71; RESP 16; TEMP 36.4; O2SAT 96
--- NOTE | 2022-06-24 02:40 | MHC.EDTECH ---
pt ambulated to the restroom no issues, vitals taken and entered
--- NOTE | 2022-06-24 04:28 | PC.NURSE ---
Pt ca&ox3. No signs of distress. Pt denies sob and chest pain. Will continue to monitor.
[2022-06-24 05:36] LABS: MANUAL DIFF FLAG NO
[2022-06-24 05:41] LABS: Basophils Absolute Auto 0.1 X10*3/uL (0.0-0.2); Basophils Percent Auto 0.6 % (0-2); Eosinophils Absolute Auto 0.3 X10*3/uL (0.0-0.4); Eosinophils Percent Auto 3.4 % (0-4); Hematocrit 36.3 % (42.0-52.0); Hemoglobin 12.4 g/dl (14.0-18.0); Imm Gran Abs Auto 0.08 X10*3/uL (0.00-0.03); Imm Gran Pct Auto 0.9 % (0.0-0.4); Lymphocytes Absolute Auto 2.4 X10*3/uL (1.2-4.9); Lymphocytes Percent Auto 28.5 % (20-40); Mean Corpuscular HGB Conc 34.2 g/dl (31.0-36.0); Mean Corpuscular Hemoglobin 31.1 pg (27.0-33.0); Mean Platelet Volume 9.7 fL (9.4-12.4); Monocytes Absolute Auto 0.9 X10*3/uL (0.1-1.2); Neutrophils Absolute Auto 4.7 x10*3/uL (2.0-8.3); Neutrophils Percent Auto 55.6 % (45-73); Platelet Count 166 X10*3/uL (160-400); Red Blood Count 3.99 X10*6/uL (4.60-5.80); Red Cell Distribution Width 11.8 % (11.0-16.0); White Blood Count 8.5 X10*3/uL (4.8-10.8)
[2022-06-24 06:13] VITALS: BMI 30.5
[2022-06-24 06:15] LABS: Anion Gap 8 (12-20); Blood Urea Nitrogen 11 mg/dL (9-16); Calcium 8.9 mg/dL (8.4-10.2); Carbon Dioxide 28 mmol/L (22-29); Chloride 105 mmol/L (96-108); Creatinine Clr Calc Pharmacy 108.8; Estimated Glomerular Filt Rate > 60; Glucose Random 238 mg/dL (60-115); Potassium 4.4 mmol/L (3.3-5.1); Sodium 137 mmol/L (135-145)
[2022-06-24 06:21] VITALS: BP 113/74; PULSE 70; RESP 18; TEMP 36.1; O2SAT 95
[2022-06-24] MEDS: HYDROmorphone HCl 2 MG/ML VIAL IVPUSH (06:38)
[2022-06-24] MEDS: 0.9 % Sodium Chloride 1,000 ML 100 ML IVCONT ×2 (06:52→15:37)
[2022-06-24 07:25] VITALS: BP 101/56; PULSE 59; RESP 18; TEMP 36.4; O2SAT 95
[2022-06-24 07:43] LABS: Glucose, Whole Blood 209 mg/dL (60-115)
[2022-06-24] MEDS: Enoxaparin Sodium 40 MG/0.4 ML SYRINGE SUBCUT (08:51)
[2022-06-24] MEDS: ondansetron HCL 4 MG/2 ML VIAL IVPUSH ×2 (08:51→16:52)
[2022-06-24] MEDS: 0.9 % Sodium Chloride Flush 3 ML SYRINGE IVFLUSH (08:53)
--- NOTE | 2022-06-24 09:39 | PHA.MEDREC ---
Pharmacy Consult ? Medication Reconciliation Pharmacy has completed the medication reconciliation. Pt agreeable, poor historian. Lisinopril has not been filled since December but he insisted he takes it
--- NOTE | 2022-06-24 10:39 | PM.EVENT ---
Event Note Date of Service: 06/24/22 Event Note: Day hospitalist update S: vomited this AM abd pain improved states drinks only 1-2 light beers at a time and not every day. states cocaine use was 1-time and due to being at a [employer] party O: VS: T 97.5, BP 101/56, P 59, R 18, SaO2 95 on RA gen: NAD HEENT: no icterus neck: supple lungs: CTAB CV: RRR abd: soft, epigastric tenderness ext: no edema neuro: no focal findings A/P: d#1 52yo M with AUD + hx EtOH pancreatitis, DM2, mood disorder, HTN, HLD presenting with epigastric pain, admitted for acute EtOH pancreatitis # acute EtOH pancreatitis - NPO, IV fluids, prn IV hydromorphone, counseled complete abstinence # AUD - prn CIWA; no apparent withdrawal syndrome. continue thiamine, folate. Addiction Med consult # cocaine abuse - counseled on cardiac risks as well as risks of fentanyl contamination. d/c metoprolol to avoid unopposed alpha-agonist effect. Addiction Med consult # HTN - d/c'ed metoprolol as above; continue lisinopril chronic issues # DM2: valerio-dose lispro # HLD: fenofibrate # mood disorder: quetiapine + sertraline + trazodone # VTE ppx: LMWH # dispo: eventually home, no services anticipated In my clinical judgment, the patient requires continued hospitalization for the following reasons: IV fluids + IV analgesia Time Spent With Patient Time: Total time managing care of this patient today ____ minutes.
--- NOTE | 2022-06-24 11:24 | MHC.RECOVRN ---
Met with pt in 351 after consult placed to Addiction Medicine. Pt sititng in bed, awake, alert, easily engages in conversation. Pt reports drinking Coors light, a 6 pack on the weekends, as well as occasional cocaine use, IN. Pt reports ceasing hard alcohol use after first admission for alcohol related medical issues over a year ago. 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 Pt reports feeling depressed and lonely at times which is a trigger for alcohol use. Pt had been living alone but a roommate moved in yesterday and pt is very happy and hopeful about this. Roommate also has a dog, pt reports this has also brightened his mood. Roommate drinks occasionally and is supportive of pt abstaining from all substance use. Pt currently has a therapist who he sees weekly and a psychiatrist he speaks with twice monthly. Pt has a membership to 2 gyms and tries to stay active. Pt feels he has made tremendous progress with his alcohol use and is hopeful to make more progress with the support of new roommate. Pt declines outpatient recovery support/referrals at this time but was provided with resources if needed. Pt denies other questions or concerns for t/w. Discussed with Roshni Nicole APRN.
[2022-06-24 11:27] LABS: Glucose, Whole Blood 282 mg/dL (60-115)
[2022-06-24] MEDS: Insulin Lispro 100 UNIT/ML 3 ML VIAL SUBCUT ×2 (11:55→21:52)
[2022-06-24] MEDS: HYDROmorphone HCl 1 MG/ML SYRINGE IVPUSH ×3 (11:59→20:10)
--- NOTE | 2022-06-24 13:03 | MHC.CM.PN ---
pt lives with a room mate who is helpful; to him pt is mihaela whatleyx x 5. he does not anticapate needing services when dcd has own ride home
[2022-06-24 15:32] VITALS: BP 127/79; PULSE 65; RESP 18; TEMP 36.1; O2SAT 99
[2022-06-24 16:10] LABS: Glucose, Whole Blood 148 mg/dL (60-115)
--- NOTE | 2022-06-24 17:05 | PC.NURSE ---
Patient vomited liquid,Zofran administered,c/o acid reflux,Dr Cuenca notified ,awaiting new orders
[2022-06-24] MEDS: Famotidine/PF 20 MG/2 ML VIAL IVPUSH (17:49)
[2022-06-24 19:25] VITALS: BP 177/94; PULSE 82; RESP 18; TEMP 36.4; O2SAT 98
[2022-06-24 20:44] LABS: Glucose, Whole Blood 244 mg/dL (60-115)
--- NOTE | 2022-06-24 21:53 | PC.NURSE ---
Patient would like to take his Seroquel and Trazodone at midnight ,will [id number] RN
[2022-06-25] MEDS: HYDROmorphone HCl 1 MG/ML SYRINGE IVPUSH ×3 (00:11→12:11)
[2022-06-25] MEDS: 0.9 % Sodium Chloride Flush 3 ML SYRINGE IVFLUSH ×2 (00:13→08:04)
[2022-06-25] MEDS: 0.9 % Sodium Chloride 1,000 ML 100 ML IVCONT ×3 (00:16→21:15)
[2022-06-25] MEDS: QUEtiapine Fumarate 300 MG TABLET PO ×2 (01:21→23:44)
[2022-06-25] MEDS: traZODone HCL 50 MG TABLET 150 MG PO ×2 (01:21→23:43)
--- NOTE | 2022-06-25 02:18 | PC.NURSE ---
PER 3-11 RN REPORT PATIENT REQUESTING TO TAKE SCHEDULED 2100 SEROQUEL AND TRAZADONE AT 0000 VS 2100. MEDICATIONS OFFERED AT THAT TIME, HOWEVER, PT STATED HE WANTED PAIN MEDICATION AT THAT TIME AND WILL LET THIS ACCOUNT MANAGER KNOW WHEN READY. CONTINUED TO DECLINE WHEN ASKED 2 MORE TIMES AND THEN PATIENT DID REQUEST MEDICATIONS AT 0115. MEDICATIONS CHARTED AND GIVEN PER APR. PAIN MEDICATION WAS EFFECTIVE, NO N/V AT THIS TIME, WILL CONTINUE TO MONITOR.
[2022-06-25 04:00] VITALS: BP 165/67; PULSE 92; RESP 18; TEMP 36.1; O2SAT 97
[2022-06-25 06:31] LABS: Hematocrit 35.4 % (42.0-52.0); Hemoglobin 12.1 g/dl (14.0-18.0); Mean Corpuscular HGB Conc 34.2 g/dl (31.0-36.0); Mean Corpuscular Hemoglobin 30.8 pg (27.0-33.0); Mean Corpuscular Volume 90.1 fL (80.0-98.0); Platelet Count 145 X10*3/uL (160-400); Red Blood Count 3.93 X10*6/uL (4.60-5.80); Red Cell Distribution Width 11.9 % (11.0-16.0)
[2022-06-25 06:54] LABS: Alanine Aminotransferase 23 U/L (0-40); Albumin Level 3.8 g/dL (3.5-5.0); Alkaline Phosphatase 62 U/L (39-117); Anion Gap 16 (12-20); Aspartate Amino Transferase 20 U/L (5-37); Bilirubin Total 0.8 mg/dL (0.0-1.0); Blood Urea Nitrogen 4 mg/dL (9-16); Calcium 8.6 mg/dL (8.4-10.2); Carbon Dioxide 23 mmol/L (22-29); Chloride 102 mmol/L (96-108); Creatinine Clr Calc Pharmacy 132.1; Estimated Glomerular Filt Rate > 60; Glucose Random 190 mg/dL (60-115); Magnesium 1.5 mg/dL (1.6-2.6); Potassium 3.6 mmol/L (3.3-5.1); Sodium 137 mmol/L (135-145); Total Protein 6.2 g/dL (6.5-8.0)
[2022-06-25 07:13] VITALS: BP 133/78; PULSE 112; RESP 16; TEMP 36.3; O2SAT 97
--- NOTE | 2022-06-25 07:14 | HO.PM.IMPN ---
Subjective Subjective Date of Service: 06/25/22 Interval History: being followed for alcoholic pancreatitis abdominal pain is better feeling hungry, no nausea no vomiting , no fevers, no chills, no lightheadedness or dizziness, no other acute events overnight. Review of Systems Review of Systems: Yes all other systems are reviewed and are negative Physical Exam Vital Signs: Vital Signs: Last Vital Signs Temp 97.4 F 06/25/22 07:13 Pulse 112 H 06/25/22 07:13 Resp 16 06/25/22 07:13 BP 133/78 06/25/22 07:13 Pulse Ox 97 06/25/22 07:13 O2 Del Method Room Air 06/25/22 07:13 BMI result Body Mass Index 30.5 Const: Other: Gen: awake alert x3 in no acute distress HEENT: sclera anicteric, moist mucus membranes Neck: supple Lungs: clear to auscultation bilaterally Heart: regular rate and rhythm, no murmurs Abd: soft, non-tender, non-distended, bowel sounds audible Ext: no edema Skin: warm/well-perfused Neuro: alert and oriented x3, no focal findings Psych: appropriate affect Objective Data Active Medications Acetaminophen (Acetaminophen 325 Mg Tablet) 650 mg PO Q6H PRN PRN Reason: Pain, Mild (Pain Scale 1-3) Empagliflozin (Empagliflozin 25 Mg Tablet) 25 mg PO DAILY [facility] Enoxaparin Sodium (Enoxaparin Sodium 40 Mg/0.4 Ml Syringe) 40 mg SUBCUT Q24H [facility] Last Admin: 06/24/22 08:51 Dose: 40 mg Documented By: SABAS Famotidine (Famotidine/Pf 20 Mg/2 Ml Vial) 20 mg IVPUSH BID [facility] Last Admin: 06/24/22 21:46 Dose: Not Given Documented By: VASQUEZ Non-Admin Reason: dose adm at 1749 Fenofibrate (Fenofibrate 160 Mg Tablet) 160 mg PO DAILY [facility] Folic Acid (Folic Acid 1 Mg Tablet) 1 mg PO DAILY [facility] Glucose (Glucose Gel 15 Gm Gel..Gram.) 15 gm PO Q15M PRN; Protocol PRN Reason: per Hypoglycemia Standing Ord. Hydromorphone HCl (Hydromorphone Hcl 1 Mg/Ml Syringe) 1 mg IVPUSH Q4H PRN; Protocol PRN Reason: severe pain Last Admin: 06/25/22 00:11 Dose: 1 mg Documented By: TJ Dextrose (D10) 250 mls @ 750 mls/hr IV Q15M PRN; Protocol PRN Reason: per Hypoglycemia Standing Ord. Sodium Chloride (Ns) 1,000 mls @ 100 mls/hr IVCONT .Q10H [facility] Last Admin: 06/25/22 00:16 Dose: 100 mls/hr Documented By: TJ Insulin Human Lispro (Insulin Lispro 100 Unit/Ml 3 Ml Vial) 0 unit SUBCUT QIDACHS [facility]; Protocol Last Admin: 06/24/22 21:52 Dose: 4 unit Documented By: VASQUEZ Lisinopril (Lisinopril 10 Mg Tablet) 10 mg PO DAILY [facility]; Protocol Melatonin (Melatonin 3 Mg Tablet) 6 mg PO BEDTIME PRN PRN Reason: Insomnia Multivitamins/Vitamin C (Multivitamin Tablet) 1 tab PO DAILY [facility] Ondansetron HCl (Ondansetron Hcl 4 Mg/2 Ml Vial) 4 mg IVPUSH Q8H PRN PRN Reason: Nausea and Vomiting Last Admin: 06/24/22 16:52 Dose: 4 mg Documented By: VASQUEZ Quetiapine Fumarate (Quetiapine Fumarate 50 Mg Tablet) 50 mg PO BID PRN PRN Reason: anxiety Quetiapine Fumarate (Quetiapine Fumarate 300 Mg Tablet) 300 mg PO BEDTIME [facility] Last Admin: 06/25/22 01:21 Dose: 300 mg Documented By: TJ Sertraline HCl (Sertraline Hcl 100 Mg Tablet) 100 mg PO DAILY [facility] Sodium Chloride (0.9 % Sodium Chloride Flush 3 Ml Syringe) 3 ml IVFLUSH QSHIFT [facility] Last Admin: 06/25/22 00:13 Dose: 3 ml Documented By: TJ Thiamine HCl (Thiamine Hcl 100 Mg Tablet) 100 mg PO DAILY [facility] Trazodone HCl (Trazodone Hcl 50 Mg Tablet) 150 mg PO BEDTIME [facility] Last Admin: 06/25/22 01:21 Dose: 150 mg Documented By: TJ Labs 06/25/22 05:30 06/25/22 05:30 Labs: Laboratory Results - last 24 hr 06/24/22 06/24/22 06/24/22 07:23 11:16 16:04 MCV MCH MCHC RDW Plt Count MPV Absolute Nucleated RBC Nucleated RBC % (auto) Anion Gap Estim Creat Clear Calc Estimated GFR POC Glucose 209 H 282 H 148 H Random Glucose Calcium Magnesium Total Bilirubin AST ALT Alkaline Phosphatase Total Protein Albumin 06/24/22 06/25/22 06/25/22 20:42 05:30 05:30 MCV 90.1 MCH 30.8 MCHC 34.2 RDW 11.9 Plt Count 145 L MPV 10.0 Absolute Nucleated RBC 0.000 Nucleated RBC % (auto) 0.0 Anion Gap 16 Estim Creat Clear Calc 132.1 Estimated GFR > 60 POC Glucose 244 H Random Glucose 190 H Calcium 8.6 Magnesium 1.5 L Total Bilirubin 0.8 AST 20 ALT 23 Alkaline Phosphatase 62 Total Protein 6.2 L Albumin 3.8 Assessment and Plan (1) Acute pancreatitis: Status: Acute Plan 52yo M with AUD + hx EtOH pancreatitis, DM2, mood disorder, HTN, HLD presenting with epigastric pain, admitted for acute EtOH pancreatitis # acute EtOH pancreatitis - abdominal pain improved, stable electrolytes lipase remain elevated 302 seems chronically elevated, stable renal function, LFTs calcium and bicarb, stable triglycerides. feeling hungry, will place on full liquid diet continue IV fluids, prn IV hydromorphone dose reduced, counseled complete abstinence # AUD - prn CIWA; no apparent withdrawal syndrome.? continue thiamine, folate.? seen by recovery team, patient being followed by a therapist and a psychiatrist, patient declined outpatient recovery support and referrals at this time # cocaine abuse - counseled on cardiac risks as well as risks of fentanyl contamination.? d/c metoprolol to avoid unopposed alpha-agonist effect.? Addiction Med consult # HTN - few high blood pressure readings likely due to alcohol withdrawal and stopping metoprolol,continue lisinopril and follow BP chronic issues # DM2: elevated blood sugars continue , continue Jardiance and valerio-dose lispro # HLD: fenofibrate # mood disorder: quetiapine + sertraline + trazodone # VTE ppx: LMWH # dispo: eventually home, no services anticipated In my clinical judgment, the patient requires continued hospitalization for the following reasons: IV fluids + IV analgesia Time Spent With Patient Time: Total time managing care of this patient today ____ minutes. Quality Stroke Does the patient have a stroke diagnosis?: No VTE Prior VTE?: No VTE Risk Level:: Medical - moderate - high VTE Device Contraindication: Treatment Not Indicated VTE Drug Contraindication: N/A - Med Ordered
[2022-06-25 07:29] LABS: Glucose, Whole Blood 202 mg/dL (60-115)
[2022-06-25] MEDS: Thiamine HCL 100 MG TABLET PO (08:01)
[2022-06-25] MEDS: Sertraline HCL 100 MG TABLET PO (08:01)
[2022-06-25] MEDS: lisinopriL 10 MG TABLET PO (08:01)
[2022-06-25] MEDS: Folic Acid 1 MG TABLET PO (08:02)
[2022-06-25] MEDS: Famotidine/PF 20 MG/2 ML VIAL IVPUSH ×2 (08:02→20:26)
[2022-06-25] MEDS: Enoxaparin Sodium 40 MG/0.4 ML SYRINGE SUBCUT (08:02)
[2022-06-25] MEDS: Empagliflozin 25 MG TABLET PO (08:02)
[2022-06-25] MEDS: Multivitamin TABLET 1 TAB PO (08:02)
[2022-06-25] MEDS: Insulin Lispro 100 UNIT/ML 3 ML VIAL SUBCUT ×4 (08:03→20:28)
[2022-06-25] MEDS: Fenofibrate 160 MG TABLET PO (08:03)
[2022-06-25] MEDS: Magnesium Sulfate/H2O 2 GM/50 ML PIGGYBACK IV (08:04)
[2022-06-25 11:23] LABS: Glucose, Whole Blood 199 mg/dL (60-115)
[2022-06-25 13:52] LABS: Lipase 302 U/L (8-78)
[2022-06-25 15:56] VITALS: BP 157/88; PULSE 95; RESP 20; TEMP 36.6; O2SAT 99
[2022-06-25] MEDS: HYDROmorphone HCl 1 MG/ML SYRINGE 0.5 MG IVPUSH ×2 (16:29→20:24)
[2022-06-25 16:36] LABS: Glucose, Whole Blood 164 mg/dL (60-115)
[2022-06-25 19:38] VITALS: BP 132/72; PULSE 89; RESP 17; TEMP 36.7; O2SAT 96
[2022-06-25 20:10] LABS: Glucose, Whole Blood 232 mg/dL (60-115)
[2022-06-26] MEDS: HYDROmorphone HCl 1 MG/ML SYRINGE 0.5 MG IVPUSH ×2 (01:04→07:45)
[2022-06-26 03:23] VITALS: BP 116/58; PULSE 72; RESP 16; TEMP 36.1; O2SAT 97
[2022-06-26 06:57] LABS: Anion Gap 16 (12-20); Blood Urea Nitrogen 5 mg/dL (9-16); Calcium 8.7 mg/dL (8.4-10.2); Carbon Dioxide 21 mmol/L (22-29); Chloride 108 mmol/L (96-108); Creatinine Clr Calc Pharmacy 121.7; Estimated Glomerular Filt Rate > 60; Glucose Random 119 mg/dL (60-115); Lipase 103 U/L (8-78); Potassium 3.6 mmol/L (3.3-5.1); Sodium 141 mmol/L (135-145)
[2022-06-26 07:12] VITALS: BP 115/66; PULSE 75; RESP 16; TEMP 36.6; O2SAT 97
[2022-06-26 07:30] LABS: Glucose, Whole Blood 122 mg/dL (60-115)
[2022-06-26] MEDS: Sertraline HCL 100 MG TABLET PO (07:31)
[2022-06-26] MEDS: lisinopriL 10 MG TABLET PO (07:31)
[2022-06-26] MEDS: Empagliflozin 25 MG TABLET PO (07:31)
[2022-06-26] MEDS: Fenofibrate 160 MG TABLET PO (07:31)
[2022-06-26] MEDS: Multivitamin TABLET 1 TAB PO (07:31)
[2022-06-26] MEDS: Enoxaparin Sodium 40 MG/0.4 ML SYRINGE SUBCUT (07:31)
[2022-06-26] MEDS: Famotidine/PF 20 MG/2 ML VIAL IVPUSH (07:31)
[2022-06-26] MEDS: Thiamine HCL 100 MG TABLET PO (07:31)
[2022-06-26] MEDS: Folic Acid 1 MG TABLET PO (07:31)
[2022-06-26 11:20] LABS: Glucose, Whole Blood 217 mg/dL (60-115)
[2022-06-26] MEDS: Insulin Lispro 100 UNIT/ML 3 ML VIAL SUBCUT (11:32)
--- NOTE | 2022-06-26 13:09 | PM.DS ---
DS: Providers Provider Date of Service: 06/26/22 Date of admission: 06/24/22 06:31 Date of discharge: 06/26/22 Primary care physician: Ruma Gilbert MD Consults: 06/24/22 01:34 Addiction Medicine Routine Consulting Provider: Addiction Covering Reason for consultation: cocaine use disorder DS: Diagnosis Discharge Diagnosis (1) Acute pancreatitis: Status: Acute (2) Alcohol use disorder: Status: Acute (3) Cocaine abuse: Status: Acute DS: Summary Hospital Course Hospital Course: from admit H+P by hospitalist MD Sergey Juares, 06/24/22: This is a 52 year old male with pertinent history of alcohol use disorder with history of alcoholic pancreatitis, mood disorder, [id number] diabetes mellitus, mixed hyperlipidemia, essential hypertension who presents to the emergency department for evaluation of epigastric pain.? Patient states it started on the day of presentation, radiating to the back, progressive and without any relieving factors.? Patient states he has been having nausea and nonbloody emesis associated with the pain.? Patient states it feels like his typical pancreatitis pain.? States he tried quitting vodka but continues to have beers every day due to stress in his life.? He denies fever, chills, chest discomfort, palpitations, shortness of breath, changes in urinary or bowel habits. ? In the emergency department, patient requiring multiple IV opioid pushes for pain control and lipase was found to be elevated 52yo M with AUD + hx EtOH pancreatitis, DM2, mood disorder, HTN, HLD presenting with epigastric pain, admitted for acute EtOH pancreatitis. He was admitted to the Med-Surg floor and given bowel rest and IV fluid hydration along with prn IV hydromorphone. Complete abstinence from EtOH was counseled. He had no apparent withdrawal syndrome. As for cocaine abuse, which was detected on urine toxicology, he was counseled on the cardiac risks as well as risks of fentanyl contamination.? We stopped metoprolol to avoid unopposed alpha-agonist effect.? His abdominal symptoms improved and his diet was advanced. He was discharged home. Time Spent with Patient Time attestation: Total time managing care of this patient today _40___ minutes. Discharge coordination time: Greater than 30 minutes Quality: Safe Use of Opioids Does Pt have an Active Cancer Diagnosis on the Problem List?: No Quality: Stroke Does the patient have a stroke diagnosis?: No Physical Exam Vital Signs: Vital Signs: Last Vital Signs Temp 97.8 F 06/26/22 07:12 Pulse 75 06/26/22 07:12 Resp 16 06/26/22 07:12 BP 115/66 06/26/22 07:12 Pulse Ox 97 06/26/22 07:12 O2 Del Method Room Air 06/26/22 07:12 BMI result Body Mass Index 30.5 Gen: in no acute distress HEENT: sclera anicteric, moist mucus membranes Neck: supple Lungs: clear to auscultation bilaterally Heart: regular rate and rhythm, no murmurs Abd: soft, non-tender, non-distended Ext: no edema Skin: warm/well-perfused Neuro: alert and oriented x3, no focal findings Psych: appropriate affect DS: Data Data Completed and Pending Completed studies during hospitalization [Text1]: Laboratory Results WBC 9.0 X10*3/uL (4.8-10.8) 06/25/22 05:30 RBC 3.93 X10*6/uL (4.60-5.80) L 06/25/22 05:30 Hgb 12.1 g/dl (14.0-18.0) L 06/25/22 05:30 Hct 35.4 % (42.0-52.0) L 06/25/22 05:30 MCV 90.1 fL (80.0-98.0) 06/25/22 05:30 MCH 30.8 pg (27.0-33.0) 06/25/22 05:30 MCHC 34.2 g/dl (31.0-36.0) 06/25/22 05:30 RDW 11.9 % (11.0-16.0) 06/25/22 05:30 Plt Count 145 X10*3/uL (160-400) L 06/25/22 05:30 MPV 10.0 fL (9.4-12.4) 06/25/22 05:30 Immature Gran % (Auto) 0.9 % (0.0-0.4) H 06/24/22 04:57 Neut % (Auto) 55.6 % (45-73) 06/24/22 04:57 Lymph % (Auto) 28.5 % (20-40) 06/24/22 04:57 [place] % (Auto) 11.0 % (2-11) 06/24/22 04:57 Eos % (Auto) 3.4 % (0-4) 06/24/22 04:57 Baso % (Auto) 0.6 % (0-2) 06/24/22 04:57 Lymph # (Auto) 2.4 X10*3/uL (1.2-4.9) 06/24/22 04:57 [place] # (Auto) 0.9 X10*3/uL (0.1-1.2) 06/24/22 04:57 Eos # (Auto) 0.3 X10*3/uL (0.0-0.4) 06/24/22 04:57 Baso # (Auto) 0.1 X10*3/uL (0.0-0.2) 06/24/22 04:57 Abs Immat Gran (auto) 0.08 X10*3/uL (0.00-0.03) H 06/24/22 04:57 Absolute Neuts (auto) 4.7 x10*3/uL (2.0-8.3) 06/24/22 04:57 Absolute Nucleated RBC 0.000 X10*3/uL (0.0-0.012) 06/25/22 05:30 Nucleated RBC % (auto) 0.0 /100WBC (0.0-0.2) 06/25/22 05:30 Sodium 141 mmol/L (135-145) 06/26/22 05:38 Potassium 3.6 mmol/L (3.3-5.1) 06/26/22 05:38 Chloride 108 mmol/L (96-108) 06/26/22 05:38 Carbon Dioxide 21 mmol/L (22-29) L 06/26/22 05:38 Anion Gap 16 (12-20) 06/26/22 05:38 BUN 5 mg/dL (9-16) L 06/26/22 05:38 Creatinine 0.76 mg/dL (0.5-1.4) 06/26/22 05:38 Estim Creat Clear Calc 121.7 06/26/22 05:38 Estimated GFR > 60 06/26/22 05:38 POC Glucose 217 mg/dL (60-115) H 06/26/22 11:14 Random Glucose 119 mg/dL (60-115) H 06/26/22 05:38 Calcium 8.7 mg/dL (8.4-10.2) 06/26/22 05:38 Magnesium 1.5 mg/dL (1.6-2.6) L 06/25/22 05:30 Total Bilirubin 0.8 mg/dL (0.0-1.0) 06/25/22 05:30 Direct Bilirubin 0.2 mg/dL (0.0-0.5) 06/23/22 20:40 AST 20 U/L (5-37) 06/25/22 05:30 ALT 23 U/L (0-40) 06/25/22 05:30 Alkaline Phosphatase 62 U/L (39-117) 06/25/22 05:30 Troponin I High Sens 2.7 ng/L (<3.5-35.0) 06/23/22 20:40 Total Protein 6.2 g/dL (6.5-8.0) L 06/25/22 05:30 Albumin 3.8 g/dL (3.5-5.0) 06/25/22 05:30 Triglycerides Cancelled 06/24/22 01:37 Lipase 103 U/L (8-78) H 06/26/22 05:38 Urine Color Yellow 06/23/22 21:31 Urine Appearance Clear 06/23/22 21:31 Urine pH 5.5 (5.0-9.0) 06/23/22 21:31 Ur Specific [place] >= 1.030 (1.005-1.025) H 06/23/22 21:31 Urine Protein Negative mg/dL (Neg-Trace) 06/23/22 21:31 Urine Glucose (UA) >=1000 mg/dL (Negative) H 06/23/22 21:31 Urine Ketones Negative mg/dL (Negative) 06/23/22 21:31 Urine Blood Negative (Negative) 06/23/22 21:31 Urine Nitrite Negative (Negative) 06/23/22 21:31 Ur Leukocyte Esterase Negative (Negative) 06/23/22 21:31 Urine RBC 0-2 /HPF (0-2) 06/23/22 21:31 Urine WBC 0-5 /HPF (0-5) 06/23/22 21:31 Ur Squamous Epith Cells 0-2 /HPF (0-2) 06/23/22 21:31 Urine Bacteria None Seen (None Seen) 06/23/22 21:31 Hyaline Casts 0-2 /LPF (0-2) 06/23/22 21:31 Urine Opiates Screen Not Detected (Not Detect) 06/23/22 21:31 Urine Fentanyl Screen Not Detected (Not Detect) 06/23/22 21:31 Ur Barbiturates Screen Not Detected (Not Detect) 06/23/22 21:31 Ur Phencyclidine Scrn Not Detected (Not Detect) 06/23/22 21:31 Ur Amphetamines Screen Not Detected (Not Detect) 06/23/22 21:31 U Benzodiazepines Scrn Not Detected (Not Detect) 06/23/22 21:31 Urine Cocaine Screen POSITIVE (Not Detect) H 06/23/22 21:31 U Marijuana (THC) Screen Not Detected (Not Detect) 06/23/22 21:31 Ethyl Alcohol < 10 mg/dL 06/23/22 20:40 COVID-19 (BUD) Negative (Negative) 06/23/22 20:40 COVID-19 Clin Com See Note 06/23/22 20:40 Influenza Type A (JI) Negative (Negative) 06/23/22 20:40 Influenza Type B (JI) Negative (Negative) 06/23/22 20:40 Influenza A & B Note See Note 06/23/22 20:40 Impressions Chest X-Ray 06/23/22 20:28 IMPRESSION: No evidence for acute disease in the chest. Abdomen Ultrasound 06/23/22 22:22 IMPRESSION: Slightly echogenic liver. Nonvisualization of the pancreas. Abdomen/Pelvis CT 06/23/22 23:30 IMPRESSION: 1. Dramatic improvement in appearance of the pancreas since the prior study with resolution of most of the peripancreatic inflammatory changes. Some minimal changes persist around the pancreatic head. 2. Other incidental findings as described above. Fleischner guidelines were followed. Discharge Plan Discharge Anticipated Discharge Date/Time: 06/26/22 12:51 Patient Disposition: Home, Self-Care Discharge Diagnosis: pancreatitis, alcohol use disorder, cocaine abuse Referrals: Ruma Gilbert MD [Primary Care Provider] - 1 Week Discharge Medications: New famotidine 20 mg tablet 20 mg PO BID Qty: 60 0RF Continued Jardiance 25 mg tablet 25 mg PO DAILY Rx Instructions: Per patient and Salma ([place] for Dr Gilbert) This replaces trulicty. patient is not on metformin anymore either folic acid 1 mg Tablet 1 mg PO DAILY Qty: 30 0RF thiamine mononitrate (vit B1) 100 mg Tablet 100 mg PO DAILY Qty: 30 0RF quetiapine 300 mg tablet 300 mg PO BEDTIME trazodone 150 mg tablet 150 mg PO BEDTIME lisinopril 10 mg tablet 1 tab PO DAILY sertraline 100 mg tablet 1 tab PO DAILY fenofibrate nanocrystallized [Tricor] 145 mg tablet 145 mg PO DAILY Qty: 30 2RF ondansetron 4 mg tablet,disintegrating 4 mg PO Q8H PRN (Reason: nausea and vomiting) Qty: 20 0RF ibuprofen 800 mg tablet 800 mg PO TID PRN (Reason: pain) quetiapine 50 mg tablet 50 mg PO BID PRN (Reason: anxiety) multivitamin Tablet 1 tab PO DAILY Discontinued metoprolol succinate 50 mg tablet extended release 24 hr 50 mg PO DAILY Discharge Orders: Discharge Order (Routine); Ordered 06/26/22 Ordered By: Carmen Cuenca Diet: Low fat, low cholesterol Activity on Discharge: As tolerated Stand Alone Forms: Patient Portal Discharge page Care Plan Goals: avoid pancreatitis sobriety Health Concerns: pancreatitis, alcohol use disorder, cocaine abuse Plan of Treatment: avoid alcohol and cocaine and all substance of abuse stop metoprolol because using cocaine while on metoprolol Assessment: See Discharge Summary.
== END 2022-06-26 13:26 | disposition home or self-care (01) | DRG 440 ==
LOC: HO.ED 06-24 00:20 → HO.EDOVER 06-24 04:40 → HO.S3 06-24 05:10
PROVIDERS: Hospitalist; Physician Assistant; Admitting Provider Student in an Organized Health Care Education/Training Program; Emergency Provider Emergency Medicine; PCP Internal Medicine; Visit Provider Family Medicine
DX: K85.20 Alcohol induced acute pancreatitis without necrosis or infection (principal); E11.65 Type 2 diabetes mellitus with hyperglycemia; F14.10 Cocaine abuse, uncomplicated; I10 Essential (primary) hypertension; E78.5 Hyperlipidemia, unspecified; F10.10 Alcohol abuse, uncomplicated; Z20.822 Contact with and (suspected) exposure to COVID-19; Z79.899 Other long term (current) drug therapy
CPT/HCPCS: 36415; 71045; 74177; 76705; 80048; 80053; 80076; 80307; 81001; 82947; 83690; 83735; 84478; 84484; 85025; 85027; 87502; 87635; 93005; 99285; J1170; J1650; J2270; J2405; J3475; Q9967

== ENCOUNTER 2022-08-10 14:22 | Inpatient (IN) | payer OTHER, SELFPAY ==
[2022-08-10] VITALS (9 sets, daily range): BP systolic 168–190; BP diastolic 70–99; PULSE 67–84; RESP 16–20; TEMP 36.3–37.1; O2SAT 94–98; BMI 31.3
--- NOTE | ~2022-08-10 | XR_ITS ---
EXAMINATION: XR CHEST CLINICAL INFORMATION: Cough and shortness of breath COMPARISON: None available. TECHNIQUE: 2 views of the chest were obtained. FINDINGS: The lungs are well-expanded and clear of acute process. Heart size and pulmonary vascularity is normal. There is moderate spondylosis dorsal spine. No aggressive lytic or sclerotic process seen. XR/XR chest 2V IMPRESSION: Unremarkable chest exam.
--- NOTE | ~2022-08-10 | CT_ITS ---
EXAMINATION: CT ABDOMEN AND PELVIS WITH CONTRAST CLINICAL INFORMATION: Diffuse abdominal tenderness with guarding. No rebound tenderness. COMPARISON: Ultrasound abdomen performed earlier at 4:44 PM and ultrasound abdomen 06/23/2022. TECHNIQUE: Multidetector volumetric images were obtained from the superior aspect of the liver through the pubic symphysis following administration 85 mL of Omnipaque 350 intravenous contrast. Sagittal and coronal reformatted images were obtained on the technologist's workstation. Oral contrast: No This CT examination was performed using dose optimization techniques as appropriate, variously including the following: *Automated exposure control *Adjustment of mA and/or kV according to patient size (this includes techniques or standardized protocols for targeted exams where dose is matched to indication/reason for exam; i.e. extremities or head) *Use of iterative reconstruction technique DLP: 675 mGy-cm FINDINGS: LUNG BASES: The lung bases are clear. The heart size is normal. LIVER, GALLBLADDER, AND BILIARY TREE: The liver is normal in size, shape, and attenuation. No focal hepatic lesion or biliary ductal dilatation is present. The gallbladder is unremarkable with no evidence of radiopaque gallstones, gallbladder wall thickening, or obvious pericholecystic inflammatory changes. PANCREAS: The pancreas is homogeneous in density. There is peripancreatic fat stranding suggestive of acute pancreatitis. The findings are new since 06/23/2022 previous exam SPLEEN: Unremarkable. ADRENAL GLANDS: Unremarkable. KIDNEYS AND URETERS: The kidneys are normal in size, shape, and attenuation. No hydronephrosis, hydroureter, or calculi seen. No perinephric stranding. BLADDER: Unremarkable. GASTROINTESTINAL TRACT: There is scattered stool and gas seen throughout the colon without any significant distention. The small bowel loops are normal caliber. Appendix is normal caliber. No free air or free fluid seen.. ABDOMINAL WALL: There is small umbilical hernia containing fat. The neck is 1.2 cm wide. LYMPH NODES: There are small scattered lymph nodes throughout the retroperitoneum. VASCULAR: Unremarkable. PELVIC VISCERA: Unremarkable. OSSEOUS STRUCTURES: No aggressive lytic or sclerotic process seen. CT/CT abdomen pelvis w IV con IMPRESSION: Acute pancreatitis. There is mild peripancreatic fluid collection. No abscess or necrosis seen. Fleischner guidelines were followed.
--- NOTE | ~2022-08-10 | US_ITS ---
EXAMINATION: US ABDOMEN LIMITED CLINICAL INFORMATION: Acute pancreatitis. Elevated LFTs.. COMPARISON: CT abdomen and pelvis performed earlier today. TECHNIQUE: Real-time imaging of the right upper quadrant abdominal viscera. FINDINGS: PANCREAS: The body and the tail of pancreas is obscured. The head of the pancreas is echogenic. LIVER: The liver is normal in size. The liver contour is normal. Parenchymal echogenicity is mildly increased. No focal hepatic lesion. There is no intrahepatic biliary duct dilatation seen. GALLBLADDER: Normal. The gallbladder is physiologically distended without evidence of stones, sludge, polyps, wall thickening or pericholecystic fluid. COMMON BILE DUCT: Normal in caliber measuring 0.3 cm in diameter. RIGHT KIDNEY: Normal. No hydronephrosis. No renal calculi or focal parenchymal lesions. The kidney measures 10.5 cm in maximum dimension. FREE FLUID: None. US/US abdomen limited IMPRESSION: 1. Mildly echogenic liver without focal lesion. 2. Visualized gallbladder, CBD, right kidney and the head of the pancreas are unremarkable. CT visualized acute pancreatitis is not readily seen on ultrasound abdomen exam
--- NOTE | 2022-08-10 14:46 | PC.NURSE ---
pt alert and oriented, skin appropriate for ethnicity, respirations even and unlabored. pt reports whole abd pain x2 weeks some blood streaking in the vomitins, diarrhea, abd distended and slightly firm and bowel sounds hypoactive in all 4 quadrants,
--- NOTE | 2022-08-10 15:09 | ED.ABDPAIN ---
HPI - Abdominal Pain General Chief Complaint: Abdominal Pain Stated Complaint: VOMITING ABD PAIN Time Seen by Provider: 08/10/22 14:25 Source: patient and EMS Mode of arrival: EMS Limitations: no limitations History of Present Illness HPI narrative: 52-year-old male presents with severe abdominal pain rated 11/10, nausea and vomiting that has been intractable. He also reports diarrhea. Symptoms started 1 week ago. The symptoms are constant progressively getting worse. Certain positions are certainly exacerbating his complaints. There is no clear relieving features. He has had no fever or chills. He denies any blood in his stool or melanotic stools. Denies any fevers but has felt chilled. Denies any sick contacts. Patient denies being on any blood thinning medications. He reports his vomitus has had some streaks of blood but no gopi hematemesis. Patient also reports that his symptoms got particularly worse over the last week but his allergy symptoms got worse. Patient does have a cough. He is coughing up green and yellow mucus. Related Data Home Medications Medication Instructions Recorded Confirmed quetiapine 300 mg tablet 300 mg PO BEDTIME 02/27/20 06/24/22 trazodone 150 mg tablet 150 mg PO BEDTIME 02/27/20 06/24/22 empagliflozin 25 mg tablet 25 mg PO DAILY 05/22/20 06/24/22 (Jardiance) lisinopril 10 mg tablet 1 tab PO DAILY 11/04/20 06/24/22 sertraline 100 mg tablet 1 tab PO DAILY 06/23/21 06/24/22 multivitamin 1 tab PO DAILY 05/18/22 06/24/22 ibuprofen 800 mg tablet 800 mg PO TID PRN pain 06/24/22 06/24/22 quetiapine 50 mg tablet 50 mg PO BID PRN anxiety 06/24/22 06/24/22 Previous Rx's Medication Instructions Recorded folic acid 1 mg tablet 1 mg PO DAILY #30 tabs 05/26/20 thiamine mononitrate (vit B1) 100 100 mg PO DAILY #30 tabs 05/26/20 mg tablet fenofibrate nanocrystallized 145 145 mg PO DAILY #30 tabs 11/19/21 mg tablet (Tricor) ondansetron 4 mg disintegrating 4 mg PO Q8H PRN nausea and 02/06/22 tablet vomiting #20 tabs famotidine 20 mg tablet 20 mg PO BID #60 tabs 06/26/22 Allergies Allergy/AdvReac Type Severity Reaction Status Date / Time sildenafil [From Viagra] Allergy Unknown Verified 08/10/22 14:39 Review of Systems Review of Systems CONSTITUTIONAL: Denies weight loss, fever and chills. HEENT: Denies changes in vision and hearing. RESPIRATORY: + SOB and cough. CV: Denies palpitations no CP. GI: + abdominal pain, nausea, vomiting and diarrhea. : Denies dysuria and urinary frequency. MSK: Denies myalgia and joint pain. SKIN: Denies rash and pruritus. NEUROLOGICAL: Denies headache and syncope. PSYCHIATRIC: Denies recent changes in mood. Denies anxiety and depression. All other ROS are negative unless in HPI PMFSH Past Medical History Medical History Alcohol abuse Alcohol withdrawal Arthritis Cocaine abuse Cocaine abuse Diabetes mellitus Duodenitis Hypertension Pancreatitis Seizures Surgical History H/O hernia repair Family History Family History Other CAD (coronary artery disease) Diabetes mellitus Social History Social History Household Members: None Housing: House Do you presently have visiting nurse or other home services: No Alcohol intake: current Alcohol intake frequency: a few times a week Alcohol type: beer Patient Tobacco Use Status: Never used Tobacco Smoked in Last 30 Days: No Second Hand Smoke Exposure: No Use of substances other than those prescribed or required for medical reasons: No Substance Use Type: Prescription Drugs Advance Directives: Yes Advance Directives on File: Yes Advance Directives Date on File: 02/27/20 service: No Current occupational status: disabled Physical Exam ED Vital Signs: Vital Signs - 24 hr 08/10/22 14:33 08/10/22 14:44 08/10/22 16:26 Temperature 98.8 F 98.5 F Pulse Rate 67 82 Respiratory Rate 20 20 18 Blood Pressure 168/88 H 189/95 H Pulse Oximetry 94 95 Oxygen Delivery Method Room Air Room Air 08/10/22 18:18 Temperature 98.8 F Pulse Rate 78 Respiratory Rate 18 Blood Pressure 178/97 H Pulse Oximetry 96 Oxygen Delivery Method Room Air BMI result Body Mass Index 31.3 GEN: Well developed, no acute distress, alert, oriented HEENT: Normocephalic, atraumatic, normal external ears, nose appears normal, no oropharyngeal edema or exudates Eyes: Normal to appearance Neck: Supple, no lymphadenopathy Respiratory: Talks in complete sentences, no respiratory distress, clear to auscultation bilaterally Cardiovascular: Regular rate and rhythm, no murmurs rubs or gallops Abdomen: Soft, tender, nondistended, + guarding, + rebound Back: No CVA tenderness Extremities: No clubbing cyanosis or edema Neurologic: No focal neurologic deficits, cranial nerves 2-12 intact, strength is 5/5 bilaterally Skin: No rash Course Course Course Narrative: 52-year-old male presents with severe abdominal pain, nausea, vomiting with blood streaks in his vomitus. He denies any significant chest pain but does have some shortness of breath. My plan for the patient will be to get a chest x-ray, CT scan the abdomen pelvis given tenderness with guarding no rebound. Patient will be provided with intravenous analgesia. He will be given IV fluids and antiemetics as well as pantoprazole. Reevaluation(s) Reevaluation #1: Patient's pain is been controlled after 1 mg of Dilaudid. Discussed CT scan results and ultrasound results with patient. Due for pain management as well as the management of acute pancreatitis, patient will be admitted to the hospital. Time: 18:45 Medical Decision Making Medical Decision Making MDM Narrative: 52-year-old male presents with abdominal pain. Symptoms been going on for 1 week. Exam revealed tenderness with guarding but no rebound. Patient reports having had a history of pancreatitis and is concerned about this. I will do the following tests including laboratory analysis, CBC, like leads, CMP, coags, lactic acid. I will obtain a chest x-ray to make sure that the vomitus that has been blood streaked has no evidence of Boerhaave syndrome. At I will obtain a CT scan of the abdomen to rule out any acute surgical pathology. Patient will be given analgesia control symptoms while he is in the emergency department differential diagnosis is broad include colitis, diverticulitis, mesenteric ischemia, epiploic appendagitis, appendicitis, diverticulitis, IBS, IBD, pancreatitis, cholecystitis. Differential Diagnosis Differential Diagnoses: The differential diagnosis associated with the presentation includes (See above) Admission/Observation Consideration of admission/observation: Escalation of care including admission/observation considered Lab Data MDM Lab Attestation statement: I reviewed the patient's lab results. 08/10/22 15:12 08/10/22 15:44 Labs: Lab Results 08/10/22 08/10/22 08/10/22 Range/Units 15:12 15:12 15:17 WBC 10.6 (4.8-10.8) X10*3/uL RBC 4.38 L (4.60-5.80) X10*6/uL Hgb 13.7 L (14.0-18.0) g/dl Hct 38.8 L (42.0-52.0) % MCV 88.6 (80.0-98.0) fL MCH 31.3 (27.0-33.0) pg MCHC 35.3 (31.0-36.0) g/dl RDW 12.2 (11.0-16.0) % Plt Count 188 D (160-400) X10*3/uL MPV 9.9 (9.4-12.4) fL Immature Gran % (Auto) 0.7 H (0.0-0.4) % Neut % (Auto) 82.2 H (45-73) % Lymph % (Auto) 7.9 L (20-40) % [place] % (Auto) 8.1 (2-11) % Eos % (Auto) 0.8 (0-4) % Baso % (Auto) 0.3 (0-2) % Lymph # (Auto) 0.8 L (1.2-4.9) X10*3/uL [place] # (Auto) 0.9 (0.1-1.2) X10*3/uL Eos # (Auto) 0.1 (0.0-0.4) X10*3/uL Baso # (Auto) 0.0 (0.0-0.2) X10*3/uL Abs Immat Gran (auto) 0.07 H (0.00-0.03) X10*3/uL Absolute Neuts (auto) 8.7 H (2.0-8.3) x10*3/uL Absolute Nucleated RBC 0.000 (0.0-0.012) X10*3/uL Nucleated RBC % (auto) 0.0 (0.0-0.2) /100WBC PT (10.0-13.1) SEC INR (0.9-1.1) APTT (26.0-36.4) SEC Sodium (135-145) mmol/L Potassium (3.3-5.1) mmol/L Chloride (96-108) mmol/L Carbon Dioxide (22-29) mmol/L Anion Gap (12-20) BUN (9-16) mg/dL Creatinine (0.5-1.4) mg/dL Estim Creat Clear Calc Estimated GFR Random Glucose (60-115) mg/dL Lactic Acid 2.2 H* (0.5-2.0) mmol/L Lactic Acid F/U @ 2Hr (0.5-2.0) mmol/L Calcium (8.4-10.2) mg/dL Total Bilirubin (0.0-1.0) mg/dL AST (5-37) U/L ALT (0-40) U/L Alkaline Phosphatase (39-117) U/L Total Protein (6.5-8.0) g/dL Albumin (3.5-5.0) g/dL Triglycerides mg/dL Lipase (8-78) U/L Urine Color Yellow Urine Appearance Clear Urine pH 7.5 (5.0-9.0) Ur Specific [place] >= 1.030 H (1.005-1.025) Urine Protein Negative (Neg-Trace) mg/dL Urine Glucose (UA) >=1000 H (Negative) mg/dL Urine Ketones Trace (Negative) mg/dL Urine Blood Negative (Negative) Urine Nitrite Negative (Negative) Ur Leukocyte Esterase Negative (Negative) Urine RBC 0-2 (0-2) /HPF Urine WBC 0-5 (0-5) /HPF Ur Squamous Epith Cells 0-2 (0-2) /HPF Urine Bacteria None Seen (None Seen) Hyaline Casts 0-2 (0-2) /LPF 08/10/22 08/10/22 08/10/22 Range/Units 15:44 15:44 17:28 WBC (4.8-10.8) X10*3/uL RBC (4.60-5.80) X10*6/uL Hgb (14.0-18.0) g/dl Hct (42.0-52.0) % MCV (80.0-98.0) fL MCH (27.0-33.0) pg MCHC (31.0-36.0) g/dl RDW (11.0-16.0) % Plt Count (160-400) X10*3/uL MPV (9.4-12.4) fL Immature Gran % (Auto) (0.0-0.4) % Neut % (Auto) (45-73) % Lymph % (Auto) (20-40) % [place] % (Auto) (2-11) % Eos % (Auto) (0-4) % Baso % (Auto) (0-2) % Lymph # (Auto) (1.2-4.9) X10*3/uL [place] # (Auto) (0.1-1.2) X10*3/uL Eos # (Auto) (0.0-0.4) X10*3/uL Baso # (Auto) (0.0-0.2) X10*3/uL Abs Immat Gran (auto) (0.00-0.03) X10*3/uL Absolute Neuts (auto) (2.0-8.3) x10*3/uL Absolute Nucleated RBC (0.0-0.012) X10*3/uL Nucleated RBC % (auto) (0.0-0.2) /100WBC PT 10.5 (10.0-13.1) SEC INR 0.9 (0.9-1.1) APTT 25.9 L (26.0-36.4) SEC Sodium 137 (135-145) mmol/L Potassium 3.8 (3.3-5.1) mmol/L Chloride 101 (96-108) mmol/L Carbon Dioxide 24 (22-29) mmol/L Anion Gap 16 (12-20) BUN 10 (9-16) mg/dL Creatinine 0.88 (0.5-1.4) mg/dL Estim Creat Clear Calc 103.0 Estimated GFR > 60 Random Glucose 293 H (60-115) mg/dL Lactic Acid (0.5-2.0) mmol/L Lactic Acid F/U @ 2Hr 0.9 (0.5-2.0) mmol/L Calcium 9.8 D (8.4-10.2) mg/dL Total Bilirubin 0.7 (0.0-1.0) mg/dL AST 148 H (5-37) U/L ALT 135 H (0-40) U/L Alkaline Phosphatase 195 H (39-117) U/L Total Protein 6.9 (6.5-8.0) g/dL Albumin 4.1 (3.5-5.0) g/dL Triglycerides 261 mg/dL Lipase 990 H (8-78) U/L Urine Color Urine Appearance Urine pH (5.0-9.0) Ur Specific [place] (1.005-1.025) Urine Protein (Neg-Trace) mg/dL Urine Glucose (UA) (Negative) mg/dL Urine Ketones (Negative) mg/dL Urine Blood (Negative) Urine Nitrite (Negative) Ur Leukocyte Esterase (Negative) Urine RBC (0-2) /HPF Urine WBC (0-5) /HPF Ur Squamous Epith Cells (0-2) /HPF Urine Bacteria (None Seen) Hyaline Casts (0-2) /LPF Independent Interpretation I performed an independent interpretation of an: Plain X-Ray and CT Scan Radiology Impression Discussion of test interpretation with radiology: I have reviewed the radiologist's reading. Radiologist Impression: CT/CT abdomen pelvis w IV con IMPRESSION: Acute pancreatitis. There is mild peripancreatic fluid collection. No abscess or necrosis seen.? ? Fleischner guidelines were followed. Dictated By: Endy Corral MD Signed By: <Electronically signed by Endy Corral MD in OV> 08/10/22 1710 Independent Historian Clinical information obtained from an independent historian. History obtained from or confirmed by: EMS Prescription Management I considered prescription management with: Pain Medication and Antibiotic Chronic Conditions Patient?s care impacted by: Diabetes Medications Administered Discontinued Medications Generic Name Dose Route Start Last Admin Trade Name Freq PRN Reason Stop Dose Admin Hydromorphone HCl 1 mg 08/10/22 16:26 08/10/22 16:56 Hydromorphone Hcl 1 Mg/Ml Syringe IVPUSH 08/10/22 16:27 1 mg ONCE ONE Administration Protocol Sodium Chloride 1,000 mls @ 999 mls/hr 08/10/22 15:00 08/10/22 18:23 Ns IV 08/10/22 16:00 Infused .Q1H1M SHAGGY Infusion Iohexol 100 ml 08/10/22 16:17 08/10/22 16:17 Iohexol 350 Mg/Ml 100 Ml Infus..Btl IV 08/10/22 16:18 85 ml ONCE ONE Administration Morphine Sulfate 4 mg 08/10/22 14:56 08/10/22 15:30 Morphine Sulfate 4 Mg/Ml Cartridge IVPUSH 08/10/22 14:57 4 mg ONCE ONE Administration Protocol Ondansetron HCl 4 mg 08/10/22 14:56 08/10/22 15:30 Ondansetron Hcl 4 Mg/2 Ml Vial IVPUSH 08/10/22 14:57 4 mg ONCE ONE Administration Pantoprazole Sodium 80 mg 08/10/22 15:09 08/10/22 15:30 Pantoprazole Sodium 40 Mg/10 Ml Vial IVPUSH 08/10/22 15:10 80 mg ONCE ONE Administration Discharge Plan Discharge Clinical Impression: Abdominal pain Prescriptions: No Action Jardiance 25 mg tablet 25 mg PO DAILY Rx Instructions: Per patient and Salma (MA for Dr Gilbert) This replaces trulicty. patient is not on metformin anymore either folic acid 1 mg Tablet 1 mg PO DAILY Qty: 30 0RF thiamine mononitrate (vit B1) 100 mg Tablet 100 mg PO DAILY Qty: 30 0RF quetiapine 300 mg tablet 300 mg PO BEDTIME trazodone 150 mg tablet 150 mg PO BEDTIME lisinopril 10 mg tablet 1 tab PO DAILY sertraline 100 mg tablet 1 tab PO DAILY fenofibrate nanocrystallized [Tricor] 145 mg tablet 145 mg PO DAILY Qty: 30 2RF ondansetron 4 mg tablet,disintegrating 4 mg PO Q8H PRN (Reason: nausea and vomiting) Qty: 20 0RF ibuprofen 800 mg tablet 800 mg PO TID PRN (Reason: pain) quetiapine 50 mg tablet 50 mg PO BID PRN (Reason: anxiety) famotidine 20 mg tablet 20 mg PO BID Qty: 60 0RF multivitamin Tablet 1 tab PO DAILY
[2022-08-10 15:22] LABS: MANUAL DIFF FLAG NO
[2022-08-10 15:24] LABS: Appearance Urine Clear; Color Urine Yellow; Glucose Urine UA >=1000 mg/dL (Negative); Leukocyte Esterase Urine Negative (Negative); Nitrite Urine Negative (Negative); PH 7.5 (5.0-9.0); Specific Gravity - Urine >= 1.030 (1.005-1.025); UMIC TRIGGER UACC YES; Urine Blood Negative (Negative); Urine Ketones Trace mg/dL (Negative); Urine Protein Negative (Neg-Trace)
[2022-08-10 15:26] LABS: Basophils Percent Auto 0.3 % (0-2); Eosinophils Absolute Auto 0.1 X10*3/uL (0.0-0.4); Eosinophils Percent Auto 0.8 % (0-4); Hematocrit 38.8 % (42.0-52.0); Hemoglobin 13.7 g/dl (14.0-18.0); Imm Gran Abs Auto 0.07 X10*3/uL (0.00-0.03); Imm Gran Pct Auto 0.7 % (0.0-0.4); Lymphocytes Absolute Auto 0.8 X10*3/uL (1.2-4.9); Lymphocytes Percent Auto 7.9 % (20-40); Mean Corpuscular HGB Conc 35.3 g/dl (31.0-36.0); Mean Corpuscular Hemoglobin 31.3 pg (27.0-33.0); Mean Corpuscular Volume 88.6 fL (80.0-98.0); Mean Platelet Volume 9.9 fL (9.4-12.4); Monocytes Absolute Auto 0.9 X10*3/uL (0.1-1.2); Monocytes Percent Auto 8.1 % (2-11); Neutrophils Absolute Auto 8.7 x10*3/uL (2.0-8.3); Neutrophils Percent Auto 82.2 % (45-73); Platelet Count 188 X10*3/uL (160-400); Red Blood Count 4.38 X10*6/uL (4.60-5.80); Red Cell Distribution Width 12.2 % (11.0-16.0); White Blood Count 10.6 X10*3/uL (4.8-10.8)
[2022-08-10] MEDS: ondansetron HCL 4 MG/2 ML VIAL IVPUSH ×2 (15:30→21:26)
[2022-08-10] MEDS: Pantoprazole Sodium 40 MG/10 ML VIAL 80 MG IVPUSH (15:30)
[2022-08-10] MEDS: Morphine Sulfate 4 MG/ML CARTRIDGE IVPUSH ×2 (15:30→19:45)
[2022-08-10] MEDS: 0.9 % Sodium Chloride 1,000 ML 999 ML IV (15:31)
--- NOTE | 2022-08-10 15:37 | MHC.EDTECH ---
orthostatic vitals done: laying 168/88 74, sitting 169/97 74 standing 177/93 83
[2022-08-10 15:43] LABS: Lactic Acid 2.2 mmol/L (0.5-2.0)
[2022-08-10 15:56] LABS: INTERNATIONAL NORM RATIO 0.9 (0.9-1.1); Prothrombin Time 10.5 SEC (10.0-13.1)
[2022-08-10 15:59] LABS: Partial Thromboplastin Time 25.9 SEC (26.0-36.4)
[2022-08-10 16:01] LABS: Bacteria Urine None Seen (None Seen); Hyaline Casts Urine 0-2 /LPF (0-2); RBC Urine 0-2 /HPF (0-2); Squamous Epithelial Cell Urine 0-2 /HPF (0-2); WBC Urine 0-5 /HPF (0-5)
[2022-08-10 16:06] LABS: Alanine Aminotransferase 135 U/L (0-40); Albumin Level 4.1 g/dL (3.5-5.0); Anion Gap 16 (12-20); Bilirubin Total 0.7 mg/dL (0.0-1.0); Blood Urea Nitrogen 10 mg/dL (9-16); Calcium 9.8 mg/dL (8.4-10.2); Carbon Dioxide 24 mmol/L (22-29); Chloride 101 mmol/L (96-108); Estimated Glomerular Filt Rate > 60; Glucose Random 293 mg/dL (60-115); Potassium 3.8 mmol/L (3.3-5.1); Sodium 137 mmol/L (135-145)
[2022-08-10 16:07] LABS: Alkaline Phosphatase 195 U/L (39-117); Aspartate Amino Transferase 148 U/L (5-37); Total Protein 6.9 g/dL (6.5-8.0)
[2022-08-10 16:15] LABS: Lipase 990 U/L (8-78)
[2022-08-10] MEDS: iohexoL 350 MG/ML 100 ML INFUS..BTL IV (16:17)
[2022-08-10] MEDS: HYDROmorphone HCl 1 MG/ML SYRINGE IVPUSH (16:56)
[2022-08-10 17:20] LABS: Reflex Lactate? Lactic Acid Added
[2022-08-10 17:52] LABS: ~Lactic Acid-LAB USE ONLY 0.9 mmol/L (0.5-2.0)
[2022-08-10 17:52] LABS: Triglycerides 261 mg/dL
--- NOTE | 2022-08-10 17:57 | PM.IMHP ---
History of Present Illness Date of Service: 08/10/22 Attending physician on admission: Carmen Cuenca Chief Complaint: Abdominal pain Pt is a 52-year-old male with a PMH significant for?alcohol use disorder, history of alcohol pancreatitis, non insulin-dependent diabetes type 2, HTN, HLD, and mood disorder who presents to the ED with?worsening abdominal pain, nausea, and vomiting for the past week. Patient has long history of heavy alcohol use and prior admissions for alcohol-induced acute pancreatitis. Patient has been trying to quit alcohol, but admits to drinking ?a few beers? mainly on the weekends. Patient notes that the crowd he hangs around with including his family are all heavy drinkers and it makes him difficult to abstain. Patient also notes he has stressful family situations involving his son and his ex-, which also makes it difficult to stop drinking. Patient says his current pain is very similar to his prior admissions to the hospital for pancreatitis. Complains of intractable nausea, vomiting that is occasionally streaked with red blood. Severe, diffuse abdominal pain that radiates to the back. Patient presents today because symptoms have become unmanageable at home. Patient additionally complains of increasing shortness of breath and a productive cough that began approximately 2 weeks ago when patient was swimming in the [place] river and accidentally ingested a large amount of river water. Patient denies a history of cigarette smoking, asthma, or COPD. Denies fever, chills. No chest pain/pressure, palpitations. In the ED was afebrile but hypertensive at 189/95. Labs were significant for a lipase of 990, lactic acid of 2.2, random glucose of 293, AST of 148, ALT of 135,and alk-phos of 195. Triglycerides 261. Electrolytes WNL. Renal function baseline. CXR unremarkable. CT?of abdomen and pelvis showed acute pancreatitis with mild peripancreatic fluid collection but no abscess or necrosis. Abdominal ultrasound found mildly echogenic liver without focal tension. Visualization of gallbladder, CBD, right kidney, and head of pancreas all unremarkable. Pt was treated with morphine, ondansetron, pantoprazole, IVF, and hydromorphone. Pt will be admitted to the hospital for treatment and further evaluation of acute pancreatitis secondary to alcohol use. Review of Systems Review of Systems: Intractable nausea and vomiting Severe abdominal pain radiating to the back Abdominal distension Productive cough x2 weeks Denies fever, chills No chest pain/pressure, palpitations Yes all other systems are reviewed and are negative [facility] Medical History (Updated 08/10/22 @ 21:09 by ANGLE Garcia) Alcohol abuse Alcohol withdrawal Arthritis Cocaine abuse Cocaine abuse Diabetes mellitus Duodenitis Hypertension Pancreatitis Seizures Family History Other CAD (coronary artery disease) Diabetes mellitus Surgical History H/O hernia repair Social History Household Members: None Housing: Apartment Do you presently have visiting nurse or other home services: No Alcohol intake: current Alcohol intake frequency: a few times a week Alcohol type: beer Patient Tobacco Use Status: Never used Tobacco Smoked in Last 30 Days: No Second Hand Smoke Exposure: No Use of substances other than those prescribed or required for medical reasons: No Substance Use Type: Prescription Drugs Have you been hit, kicked, punched, or otherwise hurt by someone within the past year? If so, by whom?: No Do you feel safe in your current relationship?: No Current Relationship Is there a partner from a previous relationship who is making you feel unsafe now?: No Are you made to feel afraid or neglected: No Advance Directives: Yes Advance Directives on File: Yes Advance Directives Date on File: 02/27/20 Do you have thoughts of harming others: None Do you have a plan to hurt others: No Plan Recently lost weight without trying: No Eating poorly because of decreased appetite: No Nutrition Risks: No Nutritional Risk Poor oral hygiene: No service: No Current occupational status: disabled Meds Allergies Allergy/AdvReac Type Severity Reaction Status Date / Time sildenafil [From Viagra] Allergy Unknown Verified 08/10/22 14:39 Home Medications Medication Instructions Recorded Confirmed Last Taken Type quetiapine 300 mg tablet 300 mg PO BEDTIME 02/27/20 08/10/22 08/04/21 History trazodone 150 mg tablet 150 mg PO BEDTIME 02/27/20 08/10/22 08/04/21 History empagliflozin 25 mg tablet 25 mg PO DAILY 05/22/20 08/10/22 08/05/21 History (Jardiance) lisinopril 10 mg tablet 1 tab PO DAILY 11/04/20 08/10/22 06/24/22 History sertraline 100 mg tablet 1 tab PO DAILY 06/23/21 08/10/22 08/05/21 History ibuprofen 800 mg tablet 800 mg PO TID PRN pain 06/24/22 08/10/22 Unknown History quetiapine 50 mg tablet 50 mg PO BID PRN anxiety 06/24/22 08/10/22 Unknown History metoprolol succinate 50 mg 50 mg PO DAILY 08/10/22 08/10/22 Unknown History tablet,extended release 24 hr Physical Exam Vital Signs and Narrative: Vital Signs: Last Vital Signs Temp 98.5 F 08/10/22 16: Pulse 82 08/10/22 16:26 Resp 18 08/10/22 16:26 BP 189/95 H 08/10/22 16:26 Pulse Ox 95 08/10/22 16:26 O2 Del Method Room Air 08/10/22 16:26 BMI result Body Mass Index 31.3 Constitutional: Alert, uncomfortable looking, unable to sit still secondary to pain Mental Status: Oriented to person, place and time. Eyes: Pupils are equal, round, and reactive to light. Ear, Nose, and Throat: Oropharynx clear, mucous membranes moist. Ears and nose without deformities. Trachea midline. Respiratory: Diffuse wheezing and rhonchi bilaterally. Cardiovascular: S1, S2 regular. No murmurs, rubs, or gallops. Gastrointestinal: Abdomen soft, mildly distended, diffusely tender to palpation. Normal bowel sounds. Neurologic: Cranial nerves II-XII are grossly intact bilaterally. No focal neurological deficits. Moves all extremities spontaneously. Skin: No rashes or lesions noted. Musculoskeletal: No cyanosis or clubbing. Extremities: No edema. Psychiatric: Normal mood and affect. Results Labs 08/10/22 15:12 08/10/22 15:44 Labs: Laboratory Results - last 24 hr 08/10/22 08/10/22 08/10/22 15:12 15:12 15:17 MCV 88.6 MCH 31.3 MCHC 35.3 RDW 12.2 Plt Count 188 D MPV 9.9 Immature Gran % (Auto) 0.7 H Neut % (Auto) 82.2 H Lymph % (Auto) 7.9 L [place] % (Auto) 8.1 Eos % (Auto) 0.8 Baso % (Auto) 0.3 Lymph # (Auto) 0.8 L [place] # (Auto) 0.9 Eos # (Auto) 0.1 Baso # (Auto) 0.0 Abs Immat Gran (auto) 0.07 H Absolute Neuts (auto) 8.7 H Absolute Nucleated RBC 0.000 Nucleated RBC % (auto) 0.0 PT INR APTT Anion Gap Estim Creat Clear Calc Estimated GFR Random Glucose Lactic Acid 2.2 H* Lactic Acid F/U @ 2Hr Calcium Total Bilirubin AST ALT Alkaline Phosphatase Total Protein Albumin Triglycerides Lipase Urine Color Yellow Urine Appearance Clear Urine pH 7.5 Ur Specific [place] >= 1.030 H Urine Protein Negative Urine Glucose (UA) >=1000 H Urine Ketones Trace Urine Blood Negative Urine Nitrite Negative Ur Leukocyte Esterase Negative Urine RBC 0-2 Urine WBC 0-5 Ur Squamous Epith Cells 0-2 Urine Bacteria None Seen Hyaline Casts 0-2 08/10/22 08/10/22 08/10/22 15:44 15:44 17:28 MCV MCH MCHC RDW Plt Count MPV Immature Gran % (Auto) Neut % (Auto) Lymph % (Auto) [place] % (Auto) Eos % (Auto) Baso % (Auto) Lymph # (Auto) [place] # (Auto) Eos # (Auto) Baso # (Auto) Abs Immat Gran (auto) Absolute Neuts (auto) Absolute Nucleated RBC Nucleated RBC % (auto) PT 10.5 INR 0.9 APTT 25.9 L Anion Gap 16 Estim Creat Clear Calc 103.0 Estimated GFR > 60 Random Glucose 293 H Lactic Acid Lactic Acid F/U @ 2Hr 0.9 Calcium 9.8 D Total Bilirubin 0.7 AST 148 H ALT 135 H Alkaline Phosphatase 195 H Total Protein 6.9 Albumin 4.1 Triglycerides 261 Lipase 990 H Urine Color Urine Appearance Urine pH Ur Specific [place] Urine Protein Urine Glucose (UA) Urine Ketones Urine Blood Urine Nitrite Ur Leukocyte Esterase Urine RBC Urine WBC Ur Squamous Epith Cells Urine Bacteria Hyaline Casts Imaging Radiologist's Impressions: Impressions Chest X-Ray 08/10/22 15:14 IMPRESSION: Unremarkable chest exam. Abdomen/Pelvis CT 08/10/22 16:27 IMPRESSION: Acute pancreatitis. There is mild peripancreatic fluid collection. No abscess or necrosis seen. Fleischner guidelines were followed. Abdomen Ultrasound 08/10/22 16:44 IMPRESSION: 1. Mildly echogenic liver without focal lesion. 2. Visualized gallbladder, CBD, right kidney and the head of the pancreas are unremarkable. CT visualized acute pancreatitis is not readily seen on ultrasound abdomen exam Assessment and Plan (1) Pancreatitis: Status: Acute Plan Pt is a 52-year-old male with a PMH significant for?alcohol use disorder, history of alcohol pancreatitis, non insulin-dependent diabetes type 2, HTN, HLD, and mood disorder who presents to the ED with?worsening abdominal pain, nausea, and vomiting for the past week. Pt will be admitted to the hospital for treatment and further evaluation of acute pancreatitis likely secondary to alcohol use. Acute pancreatitis CT of abdomen and pelvis positive for acute pancreatitis with mild peripancreatic fluid collection Likely secondary to continued alcohol intake, triglycerides negative at 261, US of abd negative for GB or CBD IVF: Lactated Ringer's Analgesics for pain management Pt will be made NPO, advance diet as tolerated Anti-emetics for nausea Follow BMP Alcohol use disorder Patient with a long history of heavy alcohol use Patient has been trying to quit, but still admits to drinking ?few beers on the weekends Addiction medicine consult Complete alcohol cessation has been counseled SOB/cough Pt complains of 2-week hx of SOB and productive cough Pt without a hx of asthma or COPD CXR clear for pneumonia Duonebs prn Will check respiratory panel [id number] diabetes type 2 Hold Jardiance Sliding-scale insulin HTN Continue lisinopril Mood disorder Continue sertraline and quetiapine Full Code Attending:?Dr. Cuenca DVT Prophylaxis: Lovenox Pt will require a hospitalization of at least two nights for treatment with IVF, IV analgesics, and bowel rest of acute pancreatitis.. Time Spent With Patient Time: Total time managing care of this patient today ____ minutes. Quality Stroke Does the patient have a stroke diagnosis?: No VTE Prior VTE?: No VTE Risk Level:: Medical - moderate - high VTE Device Contraindication: Treatment Not Indicated VTE Drug Contraindication: N/A - Med Ordered
--- NOTE | 2022-08-10 18:56 | PM.EVENT ---
Event Note Date of Service: 08/10/22 Event Note: Addendum to history and physical by the advanced practice provider, Tc Cuevas I interviewed and examined the patient. I discussed their presentation and management with the JOSR. I reviewed the history and physical and agree with the documentation, with the following additions and corrections: 52yo M with AUD, prior episodes of EtOH pancreatitis, DM2, HTN, HLD, mood disorder p/w 1 wk N/V/epigastric pain. Ongoing EtOH abuse a little blood streaking in emesis cough x 2 wk hypertensive to 189/95 on presentation, lipase 990, AST 148, ALT 135, glu 293 CT with acute pancreatic inflammation, peripancreatic fluid but no abscess/necrosis # acute EtOH pancreatitis - NPO, IV Ringers' lactate, IV morphine # AUD - sobriety counseling, Add Med consult # cough - RVP, prn cough syrup # DM2 - correction-dose lispro # HTN - lisinopril, metoprolol # mood disorder - quetiapine, sertraline, trazodone # VTE ppx: LMWH # dispo: eventual home Time Spent With Patient Time: Total time managing care of this patient today ____ minutes.
--- NOTE | 2022-08-10 19:17 | PHA.MEDREC ---
Pharmacy Consult ? Medication Reconciliation Pharmacy has completed the medication reconciliation. Patient reported he was in too much pain to respond. Med rec completed by claim history. Valentine Tanner, SabrinaD
[2022-08-10] MEDS: Lactated Ringers 1,000 ML 100 ML IVCONT (19:34)
[2022-08-10] MEDS: Enoxaparin Sodium 40 MG/0.4 ML SYRINGE SUBCUT (19:34)
--- NOTE | 2022-08-10 19:41 | MHC.EDTECH ---
THIS PCT ASSUMED CARE OF PATIENT AT 1900 ,RESP PANEL COLLECTED AND SENT TO LAB ,VITALS SIGN TAKEN ,PATIENT BELONINGS LIST DONE .
--- NOTE | 2022-08-10 20:11 | PC.NURSE ---
Nurse to Nurse report given to Nancy. Vitals rechecked 186/99 bp. Patient attempted to take home bp meds today but was unable to keep it down. Provider made aware.
[2022-08-10] MEDS: lisinopriL 10 MG TABLET PO (20:19)
[2022-08-10 20:48] LABS: Glucose, Whole Blood 191 mg/dL (60-115)
[2022-08-10] MEDS: traZODone HCL 50 MG TABLET 150 MG PO (21:26)
[2022-08-10] MEDS: HYDROmorphone HCl 0.5 MG/0.5 ML SYRINGE IVPUSH (21:26)
[2022-08-10] MEDS: QUEtiapine Fumarate 300 MG TABLET PO (21:26)
[2022-08-11] VITALS: BP 179/87; PULSE 95; RESP 16; TEMP 36.4; O2SAT 98
[2022-08-11] MEDS: Morphine Sulfate 4 MG/ML CARTRIDGE IVPUSH ×5 (00:02→22:29)
[2022-08-11] MEDS: HYDROmorphone HCl 0.5 MG/0.5 ML SYRINGE IVPUSH ×5 (01:32→23:46)
--- NOTE | 2022-08-11 04:33 | PC.NURSE ---
severe abd pain related to acute pancreatitis. Dilaudid ordered due to poor pain control with morphine alone. Ok to use both per Dr Romo as long as patient maintain stable respirations/bp.
[2022-08-11] MEDS: Pantoprazole Sodium 40 MG/10 ML VIAL IVPUSH ×2 (05:09→16:13)
[2022-08-11] MEDS: Lactated Ringers 1,000 ML 100 ML IVCONT (05:15)
[2022-08-11 06:48] LABS: Hematocrit 38.1 % (42.0-52.0); Hemoglobin 12.9 g/dl (14.0-18.0); Mean Corpuscular HGB Conc 33.9 g/dl (31.0-36.0); Mean Corpuscular Hemoglobin 31.2 pg (27.0-33.0); Mean Corpuscular Volume 92.3 fL (80.0-98.0); Mean Platelet Volume 10.1 fL (9.4-12.4); Platelet Count 162 X10*3/uL (160-400); Red Blood Count 4.13 X10*6/uL (4.60-5.80); Red Cell Distribution Width 12.4 % (11.0-16.0); White Blood Count 12.4 X10*3/uL (4.8-10.8)
[2022-08-11 07:09] LABS: Blood Urea Nitrogen 6 mg/dL (9-16); Calcium 9.5 mg/dL (8.4-10.2); Creatinine Clr Calc Pharmacy 119.3; Estimated Glomerular Filt Rate > 60; Glucose Random 130 mg/dL (60-115)
[2022-08-11 07:20] LABS: Anion Gap 28 (12-20); Carbon Dioxide 16 mmol/L (22-29); Chloride 101 mmol/L (96-108); Potassium 3.8 mmol/L (3.3-5.1); Sodium 141 mmol/L (135-145)
[2022-08-11] MEDS: Fenofibrate 160 MG TABLET PO (07:31)
[2022-08-11] MEDS: lisinopriL 10 MG TABLET PO (07:31)
[2022-08-11] MEDS: Sertraline HCL 100 MG TABLET PO (07:31)
[2022-08-11] MEDS: Metoprolol Succinate ER 50 MG TAB.ER.24H PO (07:31)
[2022-08-11 07:35] VITALS: BP 121/77; PULSE 100; RESP 20; TEMP 36.2; O2SAT 98
[2022-08-11 08:20] LABS: Adenovirus PCR Not Detected (Not Detect.); Bordetella parapertussis PCR Not Detected (Not Detect.); Bordetella pertussis PCR Not Detected (Not Detect.); Chlamydia pneumoniae PCR Not Detected (Not Detect.); Coronavirus 229E PCR Not Detected (Not Detect.); Coronavirus HKU1 PCR Not Detected (Not Detect.); Coronavirus NL63 PCR Not Detected (Not Detect.); Coronavirus OC43 PCR Not Detected (Not Detect.); Rhino/Enterovirus PCR Detected (Not Detect.)
[2022-08-11 08:21] LABS: Human metapneumovirus PCR Not Detected (Not Detect.); Influenza A PCR Not Detected (Not Detect.); Influenza B PCR Not Detected (Not Detect.); Mycoplasma pneumoniae PCR Not Detected (Not Detect.); Parainfluenza 1 PCR Not Detected (Not Detect.); Parainfluenza 2 PCR Not Detected (Not Detect.); Parainfluenza 3 PCR Not Detected (Not Detect.); Parainfluenza 4 PCR Not Detected (Not Detect.); RSV PCR Not Detected (Not Detect.); SARS-CoV-2 PCR Not Detected (Not Detect.)
[2022-08-11 08:31] LABS: Estimated Average Glucose 206 mg/dL; Hemoglobin A1c % 8.8 %
[2022-08-11] MEDS: Lactated Ringers 1,000 ML 999 ML IV (08:32)
[2022-08-11 09:24] LABS: VBG Base Excess -11.3 mmol/L; VBG HCO3 13 mmol/L (22-26); VBG pCO2 28 mmHg; VBG pH 7.28 (7.32-7.43); VBG pO2 131 mmHg
[2022-08-11 09:40] LABS: Lactic Acid 1.1 mmol/L (0.5-2.0)
[2022-08-11 09:41] LABS: Venous Blood Gas Refer to POC result
[2022-08-11 10:01] LABS: Beta-Hydroxybutyrate 8.31 mmol/L (0.02-0.27)
--- NOTE | 2022-08-11 10:41 | HO.PM.IMPN ---
Subjective Subjective Date of Service: 08/11/22 Interval History: Ongoing epigastric pain + nausea No further hematemesis Coughing- dry Review of Systems Review of Systems: Yes all other systems are reviewed and are negative Physical Exam Vital Signs: Vital Signs: Last Vital Signs Temp 97.2 F 08/11/22 07:35 Pulse 100 08/11/22 07:35 Resp 20 08/11/22 07:35 BP 121/77 08/11/22 07:35 Pulse Ox 98 08/11/22 07:35 O2 Del Method Room Air 08/11/22 07:35 BMI result Body Mass Index 31.3 Gen: in no acute distress HEENT: sclera anicteric, moist mucus membranes Neck: supple Lungs: clear to auscultation bilaterally Heart: regular rate and rhythm, no murmurs Abd: soft, epigastric tenderness Ext: no edema Skin: warm/well-perfused Neuro: alert and oriented x3, no focal findings Psych: appropriate affect Objective Data Active Medications Acetaminophen (Acetaminophen 325 Mg Tablet) 650 mg PO Q6H PRN PRN Reason: Pain, Mild (Pain Scale 1-3) Albuterol/Ipratropium (Albuterol/Iprat 2.5/0.5mg 3 Ml Ampul.Neb) 3 ml INHALE RQ4H WHILE AWAKE PRN PRN Reason: Shortness of Breath/Wheezing Dextrose (Dextrose 50 % 25 Gm/50 Ml Syringe) 25 gm IVPUSH Q15M PRN; Protocol PRN Reason: per Hypoglycemia Standing Ord. Docusate Sodium (Docusate Sodium 100 Mg Capsule) 100 mg PO DAILY PRN PRN Reason: Constipation Enoxaparin Sodium (Enoxaparin Sodium 40 Mg/0.4 Ml Syringe) 40 mg SUBCUT Q24H [facility] Last Admin: 08/10/22 19:34 Dose: 40 mg Documented By: MONTEIR Fenofibrate (Fenofibrate 160 Mg Tablet) 160 mg PO DAILY [facility] Last Admin: 08/11/22 07:31 Dose: 160 mg Documented By: DABA Glucose (Glucose Gel 15 Gm Gel..Gram.) 15 gm PO Q15M PRN; Protocol PRN Reason: per Hypoglycemia Standing Ord. Hydromorphone HCl (Hydromorphone Hcl 0.5 Mg/0.5 Ml Syringe) 0.5 mg IVPUSH Q4H PRN; Protocol PRN Reason: Pain, Severe (Pain Scale 7-10) Last Admin: 08/11/22 08:30 Dose: 0.5 mg Documented By: FAN Lactated Ringer's (Lr) 1,000 mls @ 100 mls/hr IVCONT .Q10H [facility] Last Infusion: 08/11/22 08:31 Dose: 100 mls/hr Documented By: FAN Insulin Human Lispro (Insulin Lispro 100 Unit/Ml 3 Ml Vial) 0 unit SUBCUT QIDACHS [facility]; Protocol Lisinopril (Lisinopril 10 Mg Tablet) 10 mg PO DAILY [facility]; Protocol Last Admin: 08/11/22 07:31 Dose: 10 mg Documented By: FAN Metoprolol Succinate (Metoprolol Succinate Er 50 Mg Tab.Er.24h) 50 mg PO DAILY [facility]; Protocol Last Admin: 08/11/22 07:31 Dose: 50 mg Documented By: FAN Morphine Sulfate (Morphine Sulfate 4 Mg/Ml Cartridge) 4 mg IVPUSH Q4H PRN; Protocol PRN Reason: Pain, Moderate(Pain Scale 4-6) Last Admin: 08/11/22 05:08 Dose: 4 mg Documented By: JETHRO Ondansetron HCl (Ondansetron Hcl 4 Mg/2 Ml Vial) 4 mg IVPUSH Q8H PRN PRN Reason: Nausea and Vomiting Last Admin: 08/10/22 21:26 Dose: 4 mg Documented By: KIRBY Pantoprazole Sodium (Pantoprazole Sodium 40 Mg/10 Ml Vial) 40 mg IVPUSH BID@0630,1630 [facility] Last Admin: 08/11/22 05:09 Dose: 40 mg Documented By: JETHRO Pharmacy Consult (Consult Rx Perform Med Rec) 1 each MISCELLANE ONCE PRN PRN Reason: Consult order Quetiapine Fumarate (Quetiapine Fumarate 300 Mg Tablet) 300 mg PO BEDTIME [facility] Last Admin: 08/10/22 21:26 Dose: 300 mg Documented By: KIRBY Quetiapine Fumarate (Quetiapine Fumarate 50 Mg Tablet) 50 mg PO BID PRN PRN Reason: anxiety Sertraline HCl (Sertraline Hcl 100 Mg Tablet) 100 mg PO DAILY [facility] Last Admin: 08/11/22 07:31 Dose: 100 mg Documented By: FAN Sodium Chloride (0.9 % Sodium Chloride Flush 3 Ml Syringe) 3 ml IVFLUSH QSHIFT [facility] Last Admin: 08/11/22 06:42 Dose: Not Given Documented By: FAN Non-Admin Reason: IV Running Trazodone HCl (Trazodone Hcl 50 Mg Tablet) 150 mg PO BEDTIME [facility] Last Admin: 08/10/22 21:26 Dose: 150 mg Documented By: MOREZ Labs 08/11/22 05:38 08/11/22 05:38 Labs: Laboratory Results - last 24 hr 08/10/22 08/10/22 08/10/22 15:12 15:12 15:17 MCV 88.6 MCH 31.3 MCHC 35.3 RDW 12.2 Plt Count 188 D MPV 9.9 Immature Gran % (Auto) 0.7 H Neut % (Auto) 82.2 H Lymph % (Auto) 7.9 L [place] % (Auto) 8.1 Eos % (Auto) 0.8 Baso % (Auto) 0.3 Lymph # (Auto) 0.8 L [place] # (Auto) 0.9 Eos # (Auto) 0.1 Baso # (Auto) 0.0 Abs Immat Gran (auto) 0.07 H Absolute Neuts (auto) 8.7 H Absolute Nucleated RBC 0.000 Nucleated RBC % (auto) 0.0 PT INR APTT VBG pH VBG pCO2 VBG pO2 VBG HCO3 VBG O2 Saturation VBG Base Excess Anion Gap Estim Creat Clear Calc Estimated GFR POC Glucose Random Glucose Estimat Average Glucose Hemoglobin A1c % Lactic Acid 2.2 H* Lactic Acid F/U @ 2Hr Calcium Total Bilirubin AST ALT Alkaline Phosphatase Total Protein Albumin Triglycerides Lipase Urine Color Yellow Urine Appearance Clear Urine pH 7.5 Ur Specific [place] >= 1.030 H Urine Protein Negative Urine Glucose (UA) >=1000 H Urine Ketones Trace Urine Blood Negative Urine Nitrite Negative Ur Leukocyte Esterase Negative Urine RBC 0-2 Urine WBC 0-5 Ur Squamous Epith Cells 0-2 Urine Bacteria None Seen Hyaline Casts 0-2 B-Hydroxybutyrate Respiratory Panel [place] Adenovirus (Rapid PCR) B.pert (TEM-PCR) B.parapertussis DNA PCR C. pneumoniae DNA (PCR) Coronavirus OC43 (PCR) Coronavirus HKU1 (PCR) Coronavirus 229E (PCR) Coronavirus NL63 (PCR) Human Metapneumovir PCR Influenza A (RT-PCR) Influenza B (RT-PCR) M. pneumoniae (PCR) Parainfluenza 1 (PCR) Parainfluenza 2 (PCR) Parainfluenza 3 (PCR) Parainfluenza 4 (PCR) RSV (PCR) Entero/Rhino (PCR) SARS-CoV-2 RNA (RT-PCR) 08/10/22 08/10/22 08/10/22 15:44 15:44 17:28 MCV MCH MCHC RDW Plt Count MPV Immature Gran % (Auto) Neut % (Auto) Lymph % (Auto) [place] % (Auto) Eos % (Auto) Baso % (Auto) Lymph # (Auto) [place] # (Auto) Eos # (Auto) Baso # (Auto) Abs Immat Gran (auto) Absolute Neuts (auto) Absolute Nucleated RBC Nucleated RBC % (auto) PT 10.5 INR 0.9 APTT 25.9 L VBG pH VBG pCO2 VBG pO2 VBG HCO3 VBG O2 Saturation VBG Base Excess Anion Gap 16 Estim Creat Clear Calc 103.0 Estimated GFR > 60 POC Glucose Random Glucose 293 H Estimat Average Glucose Hemoglobin A1c % Lactic Acid Lactic Acid F/U @ 2Hr 0.9 Calcium 9.8 D Total Bilirubin 0.7 AST 148 H ALT 135 H Alkaline Phosphatase 195 H Total Protein 6.9 Albumin 4.1 Triglycerides 261 Lipase 990 H Urine Color Urine Appearance Urine pH Ur Specific [place] Urine Protein Urine Glucose (UA) Urine Ketones Urine Blood Urine Nitrite Ur Leukocyte Esterase Urine RBC Urine WBC Ur Squamous Epith Cells Urine Bacteria Hyaline Casts B-Hydroxybutyrate Respiratory Panel [place] Adenovirus (Rapid PCR) B.pert (TEM-PCR) B.parapertussis DNA PCR C. pneumoniae DNA (PCR) Coronavirus OC43 (PCR) Coronavirus HKU1 (PCR) Coronavirus 229E (PCR) Coronavirus NL63 (PCR) Human Metapneumovir PCR Influenza A (RT-PCR) Influenza B (RT-PCR) M. pneumoniae (PCR) Parainfluenza 1 (PCR) Parainfluenza 2 (PCR) Parainfluenza 3 (PCR) Parainfluenza 4 (PCR) RSV (PCR) Entero/Rhino (PCR) SARS-CoV-2 RNA (RT-PCR) 08/10/22 08/10/22 08/11/22 19:40 20:42 05:38 MCV 92.3 MCH 31.2 MCHC 33.9 RDW 12.4 Plt Count 162 MPV 10.1 Immature Gran % (Auto) Neut % (Auto) Lymph % (Auto) [place] % (Auto) Eos % (Auto) Baso % (Auto) Lymph # (Auto) [place] # (Auto) Eos # (Auto) Baso # (Auto) Abs Immat Gran (auto) Absolute Neuts (auto) Absolute Nucleated RBC 0.000 Nucleated RBC % (auto) 0.0 PT INR APTT VBG pH VBG pCO2 VBG pO2 VBG HCO3 VBG O2 Saturation VBG Base Excess Anion Gap Estim Creat Clear Calc Estimated GFR POC Glucose 191 H Random Glucose Estimat Average Glucose Hemoglobin A1c % Lactic Acid Lactic Acid F/U @ 2Hr Calcium Total Bilirubin AST ALT Alkaline Phosphatase Total Protein Albumin Triglycerides Lipase Urine Color Urine Appearance Urine pH Ur Specific [place] Urine Protein Urine Glucose (UA) Urine Ketones Urine Blood Urine Nitrite Ur Leukocyte Esterase Urine RBC Urine WBC Ur Squamous Epith Cells Urine Bacteria Hyaline Casts B-Hydroxybutyrate Respiratory Panel [place] See Note Adenovirus (Rapid PCR) Not Detected B.pert (TEM-PCR) Not Detected B.parapertussis DNA PCR Not Detected C. pneumoniae DNA (PCR) Not Detected Coronavirus OC43 (PCR) Not Detected Coronavirus HKU1 (PCR) Not Detected Coronavirus 229E (PCR) Not Detected Coronavirus NL63 (PCR) Not Detected Human Metapneumovir PCR Not Detected Influenza A (RT-PCR) Not Detected Influenza B (RT-PCR) Not Detected M. pneumoniae (PCR) Not Detected Parainfluenza 1 (PCR) Not Detected Parainfluenza 2 (PCR) Not Detected Parainfluenza 3 (PCR) Not Detected Parainfluenza 4 (PCR) Not Detected RSV (PCR) Not Detected Entero/Rhino (PCR) Detected A SARS-CoV-2 RNA (RT-PCR) Not Detected 08/11/22 08/11/22 08/11/22 05:38 05:38 09:08 MCV MCH MCHC RDW Plt Count MPV Immature Gran % (Auto) Neut % (Auto) Lymph % (Auto) [place] % (Auto) Eos % (Auto) Baso % (Auto) Lymph # (Auto) [place] # (Auto) Eos # (Auto) Baso # (Auto) Abs Immat Gran (auto) Absolute Neuts (auto) Absolute Nucleated RBC Nucleated RBC % (auto) PT INR APTT VBG pH VBG pCO2 VBG pO2 VBG HCO3 VBG O2 Saturation VBG Base Excess Anion Gap 28 H Estim Creat Clear Calc 119.3 Estimated GFR > 60 POC Glucose Random Glucose 130 H Estimat Average Glucose 206 Hemoglobin A1c % 8.8 Lactic Acid 1.1 Lactic Acid F/U @ 2Hr Calcium 9.5 Total Bilirubin AST ALT Alkaline Phosphatase Total Protein Albumin Triglycerides Lipase Urine Color Urine Appearance Urine pH Ur Specific [place] Urine Protein Urine Glucose (UA) Urine Ketones Urine Blood Urine Nitrite Ur Leukocyte Esterase Urine RBC Urine WBC Ur Squamous Epith Cells Urine Bacteria Hyaline Casts B-Hydroxybutyrate Respiratory Panel [place] Adenovirus (Rapid PCR) B.pert (TEM-PCR) B.parapertussis DNA PCR C. pneumoniae DNA (PCR) Coronavirus OC43 (PCR) Coronavirus HKU1 (PCR) Coronavirus 229E (PCR) Coronavirus NL63 (PCR) Human Metapneumovir PCR Influenza A (RT-PCR) Influenza B (RT-PCR) M. pneumoniae (PCR) Parainfluenza 1 (PCR) Parainfluenza 2 (PCR) Parainfluenza 3 (PCR) Parainfluenza 4 (PCR) RSV (PCR) Entero/Rhino (PCR) SARS-CoV-2 RNA (RT-PCR) 08/11/22 08/11/22 09:09 09:16 MCV MCH MCHC RDW Plt Count MPV Immature Gran % (Auto) Neut % (Auto) Lymph % (Auto) [place] % (Auto) Eos % (Auto) Baso % (Auto) Lymph # (Auto) [place] # (Auto) Eos # (Auto) Baso # (Auto) Abs Immat Gran (auto) Absolute Neuts (auto) Absolute Nucleated RBC Nucleated RBC % (auto) PT INR APTT VBG pH 7.28 L VBG pCO2 28 VBG pO2 131 VBG HCO3 13 L VBG O2 Saturation 99.0 VBG Base Excess -11.3 Anion Gap Estim Creat Clear Calc Estimated GFR POC Glucose Random Glucose Estimat Average Glucose Hemoglobin A1c % Lactic Acid Lactic Acid F/U @ 2Hr Calcium Total Bilirubin AST ALT Alkaline Phosphatase Total Protein Albumin Triglycerides Lipase Urine Color Urine Appearance Urine pH Ur Specific [place] Urine Protein Urine Glucose (UA) Urine Ketones Urine Blood Urine Nitrite Ur Leukocyte Esterase Urine RBC Urine WBC Ur Squamous Epith Cells Urine Bacteria Hyaline Casts B-Hydroxybutyrate 8.31 H Respiratory Panel [place] Adenovirus (Rapid PCR) B.pert (TEM-PCR) B.parapertussis DNA PCR C. pneumoniae DNA (PCR) Coronavirus OC43 (PCR) Coronavirus HKU1 (PCR) Coronavirus 229E (PCR) Coronavirus NL63 (PCR) Human Metapneumovir PCR Influenza A (RT-PCR) Influenza B (RT-PCR) M. pneumoniae (PCR) Parainfluenza 1 (PCR) Parainfluenza 2 (PCR) Parainfluenza 3 (PCR) Parainfluenza 4 (PCR) RSV (PCR) Entero/Rhino (PCR) SARS-CoV-2 RNA (RT-PCR) Assessment and Plan (1) Pancreatitis: Status: Acute Plan d#2 52yo M with AUD, prior episodes of EtOH pancreatitis, DM2, HTN, HLD, mood disorder p/w 1 wk N/V/epigastric pain with ongoing EtOH abuse, hematemesis, cough admitted for acute pancreatitis # acute EtOH pancreatitis - NPO, IV Ringers' lactate, IV morphine # euglycemic DKA versus alcoholic ketoacidosis - switch to IV D5LR, d/c Jardiance as outpt [not continued as inpt], monitor POC q2h, monitor BMP q4h, IV thiamine # AUD - sobriety counseling, Add Med consult # enterovirus/rhinovirus - prn dextromethorphan # DM2, A1c 8.8 - correction-dose lispro, d/c Jardiance as above # HTN - lisinopril, metoprolol # mood disorder - quetiapine, sertraline, trazodone # VTE ppx: LMWH # dispo: eventual home In my clinical judgment, the patient requires continued inpatient hospitalization for the following reasons: IV fluids, acidosis Time Spent With Patient Time: Total time managing care of this patient today ___50_ minutes. Quality Stroke Does the patient have a stroke diagnosis?: No VTE Prior VTE?: No VTE Risk Level:: Medical - moderate - high VTE Device Contraindication: Treatment Not Indicated VTE Drug Contraindication: N/A - Med Ordered
[2022-08-11 11:05] LABS: Glucose, Whole Blood 122 mg/dL (60-115)
[2022-08-11] MEDS: Thiamine HCL 100 MG in 0.9 % Sodium Chloride 100 ML 202 MG IV (12:16)
[2022-08-11] MEDS: Dextrose 5 % and Lactated Ring 1,000 ML 125 ML IVCONT (13:08)
[2022-08-11 13:19] LABS: Anion Gap 25 (12-20); Blood Urea Nitrogen 6 mg/dL (9-16); Calcium 9.7 mg/dL (8.4-10.2); Carbon Dioxide 15 mmol/L (22-29); Chloride 103 mmol/L (96-108); Creatinine Clr Calc Pharmacy 109.2; Estimated Glomerular Filt Rate > 60; Glucose Random 107 mg/dL (60-115); Lactate Dehydrogenase 193 U/L (118-273); Potassium 4.1 mmol/L (3.3-5.1); Sodium 139 mmol/L (135-145)
[2022-08-11 13:34] LABS: Glucose, Whole Blood 115 mg/dL (60-115)
[2022-08-11 13:39] LABS: Osmolality, Serum 292 mosm/kg (281-305)
--- NOTE | 2022-08-11 14:29 | MHC.RECOVRN ---
This junior copywriter met with patient after addiction consult received. Pt resting in bed, lights dim. Pt reports is tired, would like to rest as eventful day with staff in/out of room, pt request Addiction/Recovery team return tomorrow.
[2022-08-11 15:13] VITALS: BP 139/76; PULSE 96; RESP 16; TEMP 36.6; O2SAT 97
[2022-08-11 15:16] LABS: VBG Base Excess -10.3 mmol/L; VBG HCO3 16 mmol/L (22-26); VBG pCO2 37 mmHg; VBG pH 7.23 (7.32-7.43); VBG pO2 55 mmHg
[2022-08-11 16:18] LABS: Glucose, Whole Blood 158 mg/dL (60-115)
[2022-08-11 16:30] LABS: Anion Gap 26 (12-20); Blood Urea Nitrogen 6 mg/dL (9-16); Calcium 9.8 mg/dL (8.4-10.2); Carbon Dioxide 13 mmol/L (22-29); Chloride 102 mmol/L (96-108); Creatinine Clr Calc Pharmacy 109.2; Estimated Glomerular Filt Rate > 60; Glucose Random 145 mg/dL (60-115); Potassium 4.3 mmol/L (3.3-5.1); Sodium 137 mmol/L (135-145)
[2022-08-11 16:36] LABS: Venous Blood Gas Refer to POC result
[2022-08-11 17:24] LABS: Glucose, Whole Blood 170 mg/dL (60-115)
[2022-08-11] MEDS: Insulin Lispro 100 UNIT/ML 3 ML VIAL SUBCUT ×2 (17:28→22:29)
[2022-08-11] MEDS: Enoxaparin Sodium 40 MG/0.4 ML SYRINGE SUBCUT (17:29)
[2022-08-11] MEDS: Dextrose 5 % and Lactated Ring 1,000 ML 999 ML IVCONT (17:29)
[2022-08-11 19:40] LABS: VBG Base Excess -7.8 mmol/L; VBG HCO3 16 mmol/L (22-26); VBG pCO2 30 mmHg; VBG pH 7.33 (7.32-7.43); VBG pO2 96 mmHg
[2022-08-11 19:40] LABS: Venous Blood Gas Refer to POC result
[2022-08-11] MEDS: QUEtiapine Fumarate 50 MG TABLET PO (19:48)
[2022-08-11 21:33] LABS: Anion Gap 24 (12-20); Blood Urea Nitrogen 5 mg/dL (9-16); Calcium 9.9 mg/dL (8.4-10.2); Carbon Dioxide 10 mmol/L (22-29); Chloride 104 mmol/L (96-108); Creatinine Clr Calc Pharmacy 97.5; Estimated Glomerular Filt Rate > 60; Glucose Random 217 mg/dL (60-115); Potassium 4.4 mmol/L (3.3-5.1); Sodium 134 mmol/L (135-145)
[2022-08-11 21:33] LABS: Glucose, Whole Blood 188 mg/dL (60-115)
[2022-08-11] MEDS: Dextrose 5 % and Lactated Ring 1,000 ML 150 ML IVCONT (22:30)
[2022-08-11 23:28] LABS: VBG Base Excess -2.4 mmol/L; VBG HCO3 23 mmol/L (22-26); VBG pCO2 45 mmHg; VBG pH 7.32 (7.32-7.43); VBG pO2 53 mmHg
[2022-08-11 23:36] LABS: Anion Gap 20 (12-20); Blood Urea Nitrogen 4 mg/dL (9-16); Calcium 9.6 mg/dL (8.4-10.2); Carbon Dioxide 17 mmol/L (22-29); Chloride 102 mmol/L (96-108); Creatinine Clr Calc Pharmacy 91.6; Estimated Glomerular Filt Rate > 60; Glucose Random 168 mg/dL (60-115); Potassium 3.9 mmol/L (3.3-5.1); Sodium 135 mmol/L (135-145)
[2022-08-11 23:41] LABS: Venous Blood Gas Refer to POC result
[2022-08-11 23:44] VITALS: BP 136/66; PULSE 98; RESP 16; TEMP 36.9; O2SAT 96
[2022-08-11] MEDS: 0.9 % Sodium Chloride Flush 3 ML SYRINGE IVFLUSH (23:46)
[2022-08-11] MEDS: Sodium Bicarbonate 8.4% 150 MEQ in Dextrose 5 % 850 ML IV (23:46)
[2022-08-11] MEDS: QUEtiapine Fumarate 300 MG TABLET PO (23:46)
[2022-08-11] MEDS: traZODone HCL 50 MG TABLET 150 MG PO (23:46)
[2022-08-12 01:26] LABS: Glucose, Whole Blood 158 mg/dL (60-115)
[2022-08-12] MEDS: Insulin Lispro 100 UNIT/ML 3 ML VIAL SUBCUT ×5 (01:45→19:37)
[2022-08-12] MEDS: Morphine Sulfate 4 MG/ML CARTRIDGE IVPUSH ×2 (02:36→08:07)
[2022-08-12 05:24] LABS: Glucose, Whole Blood 140 mg/dL (60-115)
[2022-08-12] MEDS: Pantoprazole Sodium 40 MG/10 ML VIAL IVPUSH ×2 (06:08→16:59)
[2022-08-12] MEDS: HYDROmorphone HCl 0.5 MG/0.5 ML SYRINGE IVPUSH (06:08)
[2022-08-12 06:20] LABS: Alanine Aminotransferase 53 U/L (0-40); Albumin Level 3.4 g/dL (3.5-5.0); Alkaline Phosphatase 120 U/L (39-117); Anion Gap 20 (12-20); Aspartate Amino Transferase 24 U/L (5-37); Bilirubin Total 0.8 mg/dL (0.0-1.0); Blood Urea Nitrogen 4 mg/dL (9-16); Calcium 9.5 mg/dL (8.4-10.2); Carbon Dioxide 20 mmol/L (22-29); Chloride 100 mmol/L (96-108); Creatinine Clr Calc Pharmacy 110.6; Estimated Glomerular Filt Rate > 60; Glucose Random 145 mg/dL (60-115); Potassium 3.3 mmol/L (3.3-5.1); Sodium 137 mmol/L (135-145); Total Protein 6.5 g/dL (6.5-8.0)
[2022-08-12 06:21] LABS: Hematocrit 33.9 % (42.0-52.0); Hemoglobin 11.5 g/dl (14.0-18.0); Mean Corpuscular HGB Conc 33.9 g/dl (31.0-36.0); Mean Corpuscular Hemoglobin 31.1 pg (27.0-33.0); Mean Corpuscular Volume 91.6 fL (80.0-98.0); Mean Platelet Volume 9.9 fL (9.4-12.4); Platelet Count 162 X10*3/uL (160-400); Red Cell Distribution Width 12.4 % (11.0-16.0); White Blood Count 10.9 X10*3/uL (4.8-10.8)
--- NOTE | 2022-08-12 06:41 | PC.NURSE ---
pt had a critical lab overnight, bicarb was 10, Dr. Romo ordered new fluids - Sodium Bicarb in D5 at 150 ml/hr. Dr. Romo said to hold the DRLR while the sodium bicarb was running. Labs were re-drawn and bicarb was 17, Dr. Romo said to stop sodium bicarb after first bag finished and to switch back to D5LR.
--- NOTE | 2022-08-12 06:56 | PM.EVENT ---
Event Note Date of Service: 08/12/22 Event Note: Repeat labs in the evening showed bicarb of 10, patient received 150 bicarb drip completed and improved bicarb as well as anion gap Time Spent With Patient Time: Total time managing care of this patient today ____ minutes.
[2022-08-12 07:32] LABS: Glucose, Whole Blood 191 mg/dL (60-115)
[2022-08-12 07:55] VITALS: BP 122/64; PULSE 98; RESP 18; TEMP 36.4; O2SAT 97
[2022-08-12] MEDS: Sertraline HCL 100 MG TABLET PO (08:11)
[2022-08-12] MEDS: lisinopriL 10 MG TABLET PO (08:11)
[2022-08-12] MEDS: Potassium Chloride Packet 20 MEQ PACKET 40 MEQ PO ×2 (08:11→12:02)
[2022-08-12] MEDS: Metoprolol Succinate ER 50 MG TAB.ER.24H PO (08:11)
[2022-08-12] MEDS: Fenofibrate 160 MG TABLET PO (08:11)
[2022-08-12] MEDS: Thiamine HCL 100 MG in 0.9 % Sodium Chloride 100 ML 202 MG IV (08:11)
[2022-08-12] MEDS: QUEtiapine Fumarate 50 MG TABLET PO ×2 (09:08→19:38)
--- NOTE | 2022-08-12 09:09 | MHC.CM.PN ---
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 NO [facility] SERVICES. PATIENT OCCASIONALLY RELIES ON A CANE. HCP ON FILE AND VERIFIED. PLAN [place] HOME [place]. IMM 08/12 IN CHART
--- NOTE | 2022-08-12 09:38 | HO.PM.IMPN ---
Subjective Subjective Date of Service: 08/12/22 Interval History: overnight acidosis worsened so pt got bicarbonate; acidosis improving severe abd pain, nausea Review of Systems Review of Systems: Yes all other systems are reviewed and are negative Physical Exam Vital Signs: Vital Signs: Last Vital Signs Temp 97.5 F 08/12/22 07:55 Pulse 98 08/12/22 07:55 Resp 18 08/12/22 07:55 BP 122/64 08/12/22 07:55 Pulse Ox 97 08/12/22 07:55 O2 Del Method Room Air 08/12/22 07:55 BMI result Body Mass Index 31.3 Gen: in no acute distress HEENT: sclera anicteric, moist mucus membranes Neck: supple Lungs: clear to auscultation bilaterally Heart: regular rate and rhythm, no murmurs Abd: soft, epigastric tenderness Ext: no edema Skin: warm/well-perfused Neuro: alert and oriented x3, no focal findings Psych: appropriate affect Objective Data Active Medications Acetaminophen (Acetaminophen 325 Mg Tablet) 650 mg PO Q6H PRN PRN Reason: Pain, Mild (Pain Scale 1-3) Dextrose (Dextrose 50 % 25 Gm/50 Ml Syringe) 25 gm IVPUSH Q15M PRN; Protocol PRN Reason: per Hypoglycemia Standing Ord. Docusate Sodium (Docusate Sodium 100 Mg Capsule) 100 mg PO DAILY PRN PRN Reason: Constipation Enoxaparin Sodium (Enoxaparin Sodium 40 Mg/0.4 Ml Syringe) 40 mg SUBCUT Q24H [facility] Last Admin: 08/11/22 17:29 Dose: 40 mg Documented By: FAN Fenofibrate (Fenofibrate 160 Mg Tablet) 160 mg PO DAILY [facility] Last Admin: 08/12/22 08:11 Dose: 160 mg Documented By: FAN Glucose (Glucose Gel 15 Gm Gel..Gram.) 15 gm PO Q15M PRN; Protocol PRN Reason: per Hypoglycemia Standing Ord. Guaifenesin/Dextromethorphan (Guaifenesin Dm 100/10/5 Ml 5 Ml Syrup) 5 ml PO Q4H PRN PRN Reason: cough Hydromorphone HCl (Hydromorphone Hcl 0.5 Mg/0.5 Ml Syringe) 0.5 mg IVPUSH Q4H PRN; Protocol PRN Reason: Pain, Severe (Pain Scale 7-10) Last Admin: 08/12/22 06:08 Dose: 0.5 mg Documented By: SAMUEL Dextrose/Lactated Ringer's (D5lr) 1,000 mls @ 150 mls/hr IVCONT .Q6H40M [facility] Last Admin: 08/12/22 08:12 Dose: Not Given Documented By: FAN Non-Admin Reason: IV Running Thiamine HCl 100 mg/ Sodium (Chloride) 101 mls @ 202 mls/hr IV DAILY [facility] Last Infusion: 08/12/22 08:54 Dose: 0 mls/hr Documented By: FAN Sodium Bicarbonate 150 meq/ (Dextrose) 1,000 mls @ 150 mls/hr IV .Q6H40M [facility] Last Infusion: 08/12/22 06:41 Dose: 0 mls/hr Documented By: SAMUEL Insulin Human Lispro (Insulin Lispro 100 Unit/Ml 3 Ml Vial) 0 unit SUBCUT Q6H [facility]; Protocol Last Admin: 08/12/22 08:52 Dose: 5 unit Documented By: FAN Lisinopril (Lisinopril 10 Mg Tablet) 10 mg PO DAILY [facility]; Protocol Last Admin: 08/12/22 08:11 Dose: 10 mg Documented By: FAN Metoprolol Succinate (Metoprolol Succinate Er 50 Mg Tab.Er.24h) 50 mg PO DAILY [facility]; Protocol Last Admin: 08/12/22 08:11 Dose: 50 mg Documented By: FAN Morphine Sulfate (Morphine Sulfate 4 Mg/Ml Cartridge) 4 mg IVPUSH Q4H PRN; Protocol PRN Reason: Pain, Moderate(Pain Scale 4-6) Last Admin: 08/12/22 08:07 Dose: 4 mg Documented By: FAN Ondansetron HCl (Ondansetron Hcl 4 Mg/2 Ml Vial) 4 mg IVPUSH Q8H PRN PRN Reason: Nausea and Vomiting Last Admin: 08/10/22 21:26 Dose: 4 mg Documented By: KIRBY Pantoprazole Sodium (Pantoprazole Sodium 40 Mg/10 Ml Vial) 40 mg IVPUSH BID@0630,1630 [facility] Last Admin: 08/12/22 06:08 Dose: 40 mg Documented By: SAMUEL Pharmacy Consult (Consult Rx Perform Med Rec) 1 each MISCELLANE ONCE PRN PRN Reason: Consult order Potassium Chloride (Potassium Chloride Packet 20 Meq Packet) 40 meq PO Q4H [facility] Stop: 08/12/22 11:01 Last Admin: 08/12/22 08:11 Dose: 40 meq Documented By: FAN Quetiapine Fumarate (Quetiapine Fumarate 300 Mg Tablet) 300 mg PO BEDTIME [facility] Last Admin: 08/11/22 23:46 Dose: 300 mg Documented By: SAMUEL Quetiapine Fumarate (Quetiapine Fumarate 50 Mg Tablet) 50 mg PO BID PRN PRN Reason: anxiety Last Admin: 08/12/22 09:08 Dose: 50 mg Documented By: FAN Sertraline HCl (Sertraline Hcl 100 Mg Tablet) 100 mg PO DAILY [facility] Last Admin: 08/12/22 08:11 Dose: 100 mg Documented By: FAN Sodium Chloride (0.9 % Sodium Chloride Flush 3 Ml Syringe) 3 ml IVFLUSH QSHIFT [facility] Last Admin: 08/12/22 06:59 Dose: Not Given Documented By: FAN Non-Admin Reason: IV Running Trazodone HCl (Trazodone Hcl 50 Mg Tablet) 150 mg PO BEDTIME [facility] Last Admin: 08/11/22 23:46 Dose: 150 mg Documented By: SAMUEL Labs 08/12/22 05:43 08/12/22 05:43 Labs: Laboratory Results - last 24 hr 08/11/22 08/11/22 08/11/22 09:08 09:09 11:00 MCV MCH MCHC RDW Plt Count MPV Absolute Nucleated RBC Nucleated RBC % (auto) VBG pH VBG pCO2 VBG pO2 VBG HCO3 VBG O2 Saturation VBG Base Excess Anion Gap Estim Creat Clear Calc Estimated GFR POC Glucose 122 H Random Glucose Osmolality Lactic Acid 1.1 Calcium Total Bilirubin AST ALT Alkaline Phosphatase Lactate Dehydrogenase Total Protein Albumin B-Hydroxybutyrate 8.31 H 08/11/22 08/11/22 08/11/22 11:20 11:20 13:29 MCV MCH MCHC RDW Plt Count MPV Absolute Nucleated RBC Nucleated RBC % (auto) VBG pH VBG pCO2 VBG pO2 VBG HCO3 VBG O2 Saturation VBG Base Excess Anion Gap 25 H Estim Creat Clear Calc 109.2 Estimated GFR > 60 POC Glucose 115 Random Glucose 107 Osmolality 292 Lactic Acid Calcium 9.7 Total Bilirubin AST ALT Alkaline Phosphatase Lactate Dehydrogenase 193 Total Protein Albumin B-Hydroxybutyrate 08/11/22 08/11/22 08/11/22 15:03 15:08 15:09 MCV MCH MCHC RDW Plt Count MPV Absolute Nucleated RBC Nucleated RBC % (auto) VBG pH 7.23 L VBG pCO2 37 VBG pO2 55 VBG HCO3 16 L VBG O2 Saturation 82.0 VBG Base Excess -10.3 Anion Gap 26 H Estim Creat Clear Calc 109.2 Estimated GFR > 60 POC Glucose 158 H Random Glucose 145 H Osmolality Lactic Acid Calcium 9.8 Total Bilirubin AST ALT Alkaline Phosphatase Lactate Dehydrogenase Total Protein Albumin B-Hydroxybutyrate 08/11/22 08/11/22 08/11/22 17:21 19:19 19:29 MCV MCH MCHC RDW Plt Count MPV Absolute Nucleated RBC Nucleated RBC % (auto) VBG pH 7.33 VBG pCO2 30 VBG pO2 96 VBG HCO3 16 L VBG O2 Saturation 99.0 VBG Base Excess -7.8 Anion Gap 24 H Estim Creat Clear Calc 97.5 Estimated GFR > 60 POC Glucose 170 H Random Glucose 217 H Osmolality Lactic Acid Calcium 9.9 Total Bilirubin AST ALT Alkaline Phosphatase Lactate Dehydrogenase Total Protein Albumin B-Hydroxybutyrate 08/11/22 08/11/22 08/11/22 21:28 23:17 23:20 MCV MCH MCHC RDW Plt Count MPV Absolute Nucleated RBC Nucleated RBC % (auto) VBG pH 7.32 VBG pCO2 45 VBG pO2 53 VBG HCO3 23 VBG O2 Saturation 82.0 VBG Base Excess -2.4 Anion Gap 20 Estim Creat Clear Calc 91.6 Estimated GFR > 60 POC Glucose 188 H Random Glucose 168 H Osmolality Lactic Acid Calcium 9.6 Total Bilirubin AST ALT Alkaline Phosphatase Lactate Dehydrogenase Total Protein Albumin B-Hydroxybutyrate 08/12/22 08/12/22 08/12/22 01:21 05:20 05:43 MCV 91.6 MCH 31.1 MCHC 33.9 RDW 12.4 Plt Count 162 MPV 9.9 Absolute Nucleated RBC 0.000 Nucleated RBC % (auto) 0.0 VBG pH VBG pCO2 VBG pO2 VBG HCO3 VBG O2 Saturation VBG Base Excess Anion Gap Estim Creat Clear Calc Estimated GFR POC Glucose 158 H 140 H Random Glucose Osmolality Lactic Acid Calcium Total Bilirubin AST ALT Alkaline Phosphatase Lactate Dehydrogenase Total Protein Albumin B-Hydroxybutyrate 08/12/22 08/12/22 05:43 07:27 MCV MCH MCHC RDW Plt Count MPV Absolute Nucleated RBC Nucleated RBC % (auto) VBG pH VBG pCO2 VBG pO2 VBG HCO3 VBG O2 Saturation VBG Base Excess Anion Gap 20 Estim Creat Clear Calc 110.6 Estimated GFR > 60 POC Glucose 191 H Random Glucose 145 H Osmolality Lactic Acid Calcium 9.5 Total Bilirubin 0.8 AST 24 ALT 53 H Alkaline Phosphatase 120 H Lactate Dehydrogenase Total Protein 6.5 Albumin 3.4 L B-Hydroxybutyrate Assessment and Plan (1) Pancreatitis: Status: Acute Plan d#3 52yo M with AUD, prior episodes of EtOH pancreatitis, DM2, HTN, HLD, mood disorder p/w 1 wk N/V/epigastric pain with ongoing EtOH abuse, hematemesis, cough admitted for acute pancreatitis # acute EtOH pancreatitis - NPO, IV D5LR, IV hydromorphone # euglycemic DKA versus alcoholic ketoacidosis - IV D5LR, SQ Humalog, d/c Jardiance as outpt [not continued as inpt] # AUD - sobriety counseling, Add Med consult, continue thiamine # enterovirus/rhinovirus - prn dextromethorphan # DM2, A1c 8.8 - correction-dose lispro, d/c Jardiance as above # HTN - lisinopril, metoprolol # mood disorder - quetiapine, sertraline, trazodone # VTE ppx: LMWH # dispo: eventual home In my clinical judgment, the patient requires continued inpatient hospitalization for the following reasons: IV fluids, acidosis Time Spent With Patient Time: Total time managing care of this patient today ___45_ minutes. Quality Stroke Does the patient have a stroke diagnosis?: No VTE Prior VTE?: No VTE Risk Level:: Medical - moderate - high VTE Device Contraindication: Treatment Not Indicated VTE Drug Contraindication: N/A - Med Ordered
[2022-08-12] MEDS: HYDROmorphone HCl 0.5 MG/0.5 ML SYRINGE 0.75 MG IVPUSH ×4 (10:15→22:09)
[2022-08-12 11:14] LABS: Glucose, Whole Blood 143 mg/dL (60-115)
[2022-08-12] MEDS: Acetaminophen 325 MG TABLET 650 MG PO ×2 (12:49→19:37)
[2022-08-12] MEDS: Dextrose 5 % and Lactated Ring 1,000 ML 150 ML IVCONT ×2 (15:21→22:09)
--- NOTE | 2022-08-12 15:21 | MHC.RECOVRN ---
Met with pt this morning to follow up and provide support. Pt laying in bed, reporting pain and requesting pain medications and time to sleep. Pt reports that since last admission he has been drinking a 6 pack of beer on Fridays and Saturdays. Pt reports overall he has been doing well with support of new roommate and dog. Pt not interested in recovery support/referrals at this time. Discussed with Roshni Nicole APRN.
[2022-08-12 15:37] VITALS: BP 139/66; PULSE 80; RESP 16; TEMP 36.2; O2SAT 95
[2022-08-12 16:35] LABS: Glucose, Whole Blood 156 mg/dL (60-115)
[2022-08-12] MEDS: Enoxaparin Sodium 40 MG/0.4 ML SYRINGE SUBCUT (16:59)
[2022-08-12 19:27] LABS: Glucose, Whole Blood 185 mg/dL (60-115)
[2022-08-12] MEDS: QUEtiapine Fumarate 300 MG TABLET PO (22:09)
[2022-08-12] MEDS: traZODone HCL 50 MG TABLET 150 MG PO (22:09)
[2022-08-13] VITALS (7 sets, daily range): BP systolic 136–182; BP diastolic 61–88; PULSE 82–90; RESP 16–20; TEMP 36–37.1; O2SAT 94–98
[2022-08-13 02:16] LABS: Glucose, Whole Blood 171 mg/dL (60-115)
[2022-08-13] MEDS: HYDROmorphone HCl 0.5 MG/0.5 ML SYRINGE 0.75 MG IVPUSH ×5 (02:19→22:25)
[2022-08-13] MEDS: Insulin Lispro 100 UNIT/ML 3 ML VIAL SUBCUT ×4 (02:20→20:33)
[2022-08-13] MEDS: Dextrose 5 % and Lactated Ring 1,000 ML 150 ML IVCONT (04:40)
[2022-08-13 06:21] LABS: Hemoglobin 10.8 g/dl (14.0-18.0); Mean Corpuscular HGB Conc 33.8 g/dl (31.0-36.0); Mean Platelet Volume 9.8 fL (9.4-12.4); Platelet Count 137 X10*3/uL (160-400); Red Blood Count 3.48 X10*6/uL (4.60-5.80); Red Cell Distribution Width 12.3 % (11.0-16.0); White Blood Count 7.9 X10*3/uL (4.8-10.8)
[2022-08-13 06:25] LABS: Venous Blood Gas Refer to POC result
[2022-08-13 06:26] LABS: VBG Base Excess 2.1 mmol/L; VBG HCO3 25 mmol/L (22-26); VBG pCO2 35 mmHg; VBG pH 7.46 (7.32-7.43); VBG pO2 94 mmHg
[2022-08-13 06:42] LABS: Alanine Aminotransferase 35 U/L (0-40); Albumin Level 3.3 g/dL (3.5-5.0); Alkaline Phosphatase 97 U/L (39-117); Anion Gap 15 (12-20); Aspartate Amino Transferase 14 U/L (5-37); Bilirubin Total 0.5 mg/dL (0.0-1.0); Blood Urea Nitrogen 3 mg/dL (9-16); Calcium 9.5 mg/dL (8.4-10.2); Carbon Dioxide 24 mmol/L (22-29); Chloride 103 mmol/L (96-108); Creatinine Clr Calc Pharmacy 120.9; Estimated Glomerular Filt Rate > 60; Glucose Random 167 mg/dL (60-115); Magnesium 1.5 mg/dL (1.6-2.6); Potassium 3.3 mmol/L (3.3-5.1); Sodium 139 mmol/L (135-145); Total Protein 6.4 g/dL (6.5-8.0)
[2022-08-13 07:41] LABS: Glucose, Whole Blood 178 mg/dL (60-115)
[2022-08-13] MEDS: Metoprolol Succinate ER 50 MG TAB.ER.24H PO (07:51)
[2022-08-13] MEDS: Fenofibrate 160 MG TABLET PO (07:51)
[2022-08-13] MEDS: lisinopriL 10 MG TABLET PO (07:51)
[2022-08-13] MEDS: Thiamine HCL 100 MG in 0.9 % Sodium Chloride 100 ML 200 MG IV (07:52)
[2022-08-13] MEDS: Sertraline HCL 100 MG TABLET PO (07:52)
--- NOTE | 2022-08-13 09:40 | HO.PM.IMPN ---
Subjective Subjective Date of Service: 08/13/22 Interval History: C/o back pain more than epigastric pain No N/V Acidemia resolved Review of Systems Review of Systems: Yes all other systems are reviewed and are negative Physical Exam Vital Signs: Vital Signs: Last Vital Signs Temp 97.8 F 08/13/22 08:00 Pulse 90 08/13/22 08:00 Resp 20 08/13/22 08:00 BP 171/81 H 08/13/22 08:00 Pulse Ox 98 08/13/22 08:00 O2 Del Method Room Air 08/13/22 08:00 BMI result Body Mass Index 31.3 Gen: in no acute distress HEENT: sclera anicteric, moist mucus membranes Neck: supple Lungs: clear to auscultation bilaterally Heart: regular rate and rhythm, no murmurs Abd: soft, epigastric tenderness Back: paralumbar tenderness bilaterally Ext: no edema Skin: warm/well-perfused Neuro: alert and oriented x3, no focal findings Psych: appropriate affect Objective Data Active Medications Acetaminophen (Acetaminophen 325 Mg Tablet) 650 mg PO Q6H PRN PRN Reason: Pain, Mild (Pain Scale 1-3) Last Admin: 08/12/22 19:37 Dose: 650 mg Documented By: SAMUEL Dextrose (Dextrose 50 % 25 Gm/50 Ml Syringe) 25 gm IVPUSH Q15M PRN; Protocol PRN Reason: per Hypoglycemia Standing Ord. Docusate Sodium (Docusate Sodium 100 Mg Capsule) 100 mg PO DAILY PRN PRN Reason: Constipation Enoxaparin Sodium (Enoxaparin Sodium 40 Mg/0.4 Ml Syringe) 40 mg SUBCUT Q24H [facility] Last Admin: 08/12/22 16:59 Dose: 40 mg Documented By: FAN Fenofibrate (Fenofibrate 160 Mg Tablet) 160 mg PO DAILY [facility] Last Admin: 08/13/22 07:51 Dose: 160 mg Documented By: FAN Glucose (Glucose Gel 15 Gm Gel..Gram.) 15 gm PO Q15M PRN; Protocol PRN Reason: per Hypoglycemia Standing Ord. Guaifenesin/Dextromethorphan (Guaifenesin Dm 100/10/5 Ml 5 Ml Syrup) 5 ml PO Q4H PRN PRN Reason: cough Hydromorphone HCl (Hydromorphone Hcl 0.5 Mg/0.5 Ml Syringe) 0.75 mg IVPUSH Q4H PRN; Protocol PRN Reason: Pain, Severe (Pain Scale 7-10) Last Admin: 08/13/22 02:19 Dose: 0.75 mg Documented By: SAMUEL Dextrose/Lactated Ringer's (D5lr) 1,000 mls @ 150 mls/hr IVCONT .Q6H40M [facility] Last Admin: 08/13/22 04:40 Dose: 150 mls/hr Documented By: SAMUEL Thiamine HCl 100 mg/ Sodium (Chloride) 101 mls @ 202 mls/hr IV DAILY [facility] Last Infusion: 08/13/22 08:34 Dose: 0 mls/hr Documented By: FAN Insulin Human Lispro (Insulin Lispro 100 Unit/Ml 3 Ml Vial) 0 unit SUBCUT Q6H [facility]; Protocol Last Admin: 08/13/22 07:51 Dose: 5 unit Documented By: FAN Lidocaine (Lidocaine 4 % Patch Adh..Patch) 1 patch TRANSDERMA DAILY [facility]; Protocol Lisinopril (Lisinopril 10 Mg Tablet) 10 mg PO DAILY [facility]; Protocol Last Admin: 08/13/22 07:51 Dose: 10 mg Documented By: FAN Metoprolol Succinate (Metoprolol Succinate Er 50 Mg Tab.Er.24h) 50 mg PO DAILY [facility]; Protocol Last Admin: 08/13/22 07:51 Dose: 50 mg Documented By: FAN Ondansetron HCl (Ondansetron Hcl 4 Mg/2 Ml Vial) 4 mg IVPUSH Q8H PRN PRN Reason: Nausea and Vomiting Last Admin: 08/10/22 21:26 Dose: 4 mg Documented By: KIRBY Pantoprazole Sodium (Pantoprazole Sodium 40 Mg/10 Ml Vial) 40 mg IVPUSH BID@0630,1630 [facility] Last Admin: 08/13/22 07:50 Dose: Not Given Documented By: FAN Non-Admin Reason: given during downtime at 0630am Pharmacy Consult (Consult Rx Perform Med Rec) 1 each MISCELLANE ONCE PRN PRN Reason: Consult order Quetiapine Fumarate (Quetiapine Fumarate 300 Mg Tablet) 300 mg PO BEDTIME [facility] Last Admin: 08/12/22 22:09 Dose: 300 mg Documented By: SAMUEL Quetiapine Fumarate (Quetiapine Fumarate 50 Mg Tablet) 50 mg PO BID PRN PRN Reason: anxiety Last Admin: 08/12/22 19:38 Dose: 50 mg Documented By: SAMUEL Sertraline HCl (Sertraline Hcl 100 Mg Tablet) 100 mg PO DAILY [facility] Last Admin: 08/13/22 07:52 Dose: 100 mg Documented By: FAN Sodium Chloride (0.9 % Sodium Chloride Flush 3 Ml Syringe) 3 ml IVFLUSH QSHIFT [facility] Last Admin: 08/13/22 07:52 Dose: Not Given Documented By: FAN Non-Admin Reason: IV Running Trazodone HCl (Trazodone Hcl 50 Mg Tablet) 150 mg PO BEDTIME [facility] Last Admin: 08/12/22 22:09 Dose: 150 mg Documented By: SAMUEL Labs 08/13/22 06:11 08/13/22 06:11 Labs: Laboratory Results - last 24 hr 08/12/22 08/12/22 08/12/22 11:09 16:18 19:23 MCV MCH MCHC RDW Plt Count MPV Absolute Nucleated RBC Nucleated RBC % (auto) VBG pH VBG pCO2 VBG pO2 VBG HCO3 VBG O2 Saturation VBG Base Excess Anion Gap Estim Creat Clear Calc Estimated GFR POC Glucose 143 H 156 H 185 H Random Glucose Calcium Magnesium Total Bilirubin AST ALT Alkaline Phosphatase Total Protein Albumin 08/13/22 08/13/22 08/13/22 02:10 06:11 06:11 MCV 92.0 MCH 31.0 MCHC 33.8 RDW 12.3 Plt Count 137 L MPV 9.8 Absolute Nucleated RBC 0.000 Nucleated RBC % (auto) 0.0 VBG pH VBG pCO2 VBG pO2 VBG HCO3 VBG O2 Saturation VBG Base Excess Anion Gap 15 Estim Creat Clear Calc 120.9 Estimated GFR > 60 POC Glucose 171 H Random Glucose 167 H Calcium 9.5 Magnesium 1.5 L Total Bilirubin 0.5 AST 14 ALT 35 Alkaline Phosphatase 97 Total Protein 6.4 L Albumin 3.3 L 08/13/22 08/13/22 06:18 07:15 MCV MCH MCHC RDW Plt Count MPV Absolute Nucleated RBC Nucleated RBC % (auto) VBG pH 7.46 H VBG pCO2 35 VBG pO2 94 VBG HCO3 25 VBG O2 Saturation 98.0 VBG Base Excess 2.1 Anion Gap Estim Creat Clear Calc Estimated GFR POC Glucose 178 H Random Glucose Calcium Magnesium Total Bilirubin AST ALT Alkaline Phosphatase Total Protein Albumin Assessment and Plan (1) Pancreatitis: Status: Acute Plan d#4 52yo M with AUD, prior episodes of EtOH pancreatitis, DM2, HTN, HLD, mood disorder p/w 1 wk N/V/epigastric pain with ongoing EtOH abuse, hematemesis, cough admitted for recurrent acute pancreatitis # acute EtOH pancreatitis - 1 Maria D's criterion on admission [hyperglycemia], 3 total at 48h [Hct drop, base deficit] - trial of clears, change D5LR back to LR, IV hydromorphone # euglycemic DKA versus alcoholic ketoacidosis - resolved after D5LR + SQ Humalog plus IV bicarbonate - discontinue Jardiance as outpt [was not continued upon admission] due to SGLT2i class effect of euglycemic DKA and risk factors of EtOH + pancreatic insufficiency # AUD - Recovery Team- declined support, continue thiamine # enterovirus/rhinovirus - prn dextromethorphan # DM2, A1c 8.8 - correction-dose lispro, d/c Jardiance as above # HTN - lisinopril, metoprolol # mood disorder - quetiapine, sertraline, trazodone # HLD - fenofibrate # VTE ppx: LMWH # dispo: home once tolerates solid diet In my clinical judgment, the patient requires continued inpatient hospitalization for the following reasons: IV fluids, IV analgesia Time Spent With Patient Time: Total time managing care of this patient today _40___ minutes. Quality Stroke Does the patient have a stroke diagnosis?: No VTE Prior VTE?: No VTE Risk Level:: Medical - moderate - high VTE Device Contraindication: Treatment Not Indicated VTE Drug Contraindication: N/A - Med Ordered
[2022-08-13] MEDS: Lidocaine 4 % Patch ADH..PATCH 1 PATCH TRANSDERMA (10:29)
[2022-08-13 10:36] LABS: Glucose, Whole Blood 154 mg/dL (60-115)
[2022-08-13] MEDS: Lactated Ringers 1,000 ML 100 ML IVCONT ×2 (10:54→21:03)
--- NOTE | 2022-08-13 12:03 | PM.EVENT ---
Event Note Date of Service: 08/13/22 Event Note: Addiction consult placed Patient seen by talent acquisition coordinator, please see note dated 08/12/2022 Time Spent With Patient Time: Total time managing care of this patient today ____ minutes.
[2022-08-13 13:58] LABS: Glucose, Whole Blood 199 mg/dL (60-115)
[2022-08-13] MEDS: Pantoprazole Sodium 40 MG/10 ML VIAL IVPUSH (17:26)
[2022-08-13] MEDS: Enoxaparin Sodium 40 MG/0.4 ML SYRINGE SUBCUT (17:26)
[2022-08-13] MEDS: guaiFENesin DM 100/10/5 ML 5 ML SYRUP PO (19:43)
[2022-08-13 20:18] LABS: Glucose, Whole Blood 193 mg/dL (60-115)
[2022-08-13] MEDS: traZODone HCL 50 MG TABLET 150 MG PO (22:28)
[2022-08-13] MEDS: QUEtiapine Fumarate 300 MG TABLET PO (22:29)
[2022-08-14 02:27] LABS: Glucose, Whole Blood 190 mg/dL (60-115)
[2022-08-14] MEDS: HYDROmorphone HCl 0.5 MG/0.5 ML SYRINGE 0.75 MG IVPUSH ×6 (02:39→23:18)
[2022-08-14] MEDS: Insulin Lispro 100 UNIT/ML 3 ML VIAL SUBCUT ×4 (02:41→20:21)
[2022-08-14 03:14] VITALS: BP 139/71; PULSE 78; RESP 18; TEMP 36.4; O2SAT 96
[2022-08-14] MEDS: Lactated Ringers 1,000 ML 100 ML IVCONT ×2 (06:03→15:19)
[2022-08-14] MEDS: Pantoprazole Sodium 40 MG/10 ML VIAL IVPUSH ×2 (06:03→15:16)
[2022-08-14 07:29] VITALS: BP 134/70; PULSE 78; RESP 18; TEMP 36.4; O2SAT 95
[2022-08-14 07:39] LABS: Glucose, Whole Blood 178 mg/dL (60-115)
[2022-08-14] MEDS: Thiamine HCL 100 MG in 0.9 % Sodium Chloride 100 ML 200 MG IV (07:54)
[2022-08-14] MEDS: Sertraline HCL 100 MG TABLET PO (07:56)
[2022-08-14] MEDS: Fenofibrate 160 MG TABLET PO (07:56)
[2022-08-14] MEDS: lisinopriL 10 MG TABLET PO (07:56)
[2022-08-14] MEDS: Metoprolol Succinate ER 50 MG TAB.ER.24H PO (07:56)
[2022-08-14] MEDS: 0.9 % Sodium Chloride Flush 3 ML SYRINGE IVFLUSH ×2 (07:56→15:11)
[2022-08-14] MEDS: Lidocaine 4 % Patch ADH..PATCH 1 PATCH TRANSDERMA (07:57)
--- NOTE | 2022-08-14 10:20 | HO.PM.IMPN ---
Subjective Subjective Date of Service: 08/14/22 Interval History: Seen and evaluated this morning reporting pain and nausea started clears w fair tolerance no other overnight events Review of Systems Review of Systems: Yes all other systems are reviewed and are negative Physical Exam Vital Signs: Vital Signs: Last Vital Signs Temp 97.5 F 08/14/22 07:29 Pulse 78 08/14/22 07:29 Resp 18 08/14/22 07:29 BP 134/70 08/14/22 07:29 Pulse Ox 95 08/14/22 07:29 O2 Del Method Room Air 08/14/22 07:29 BMI result Body Mass Index 31.3 Const: Other: Constitutional : Awake, not in distress Neck : Normal inspection, Supple Cardiovascular : RRR, no JVP, no lower extremity edema Respiratory : good bilateral air entry, no crackles, wheezes or rhonchi Gastrointestinal: soft, lax, Normal bowel sounds, epigastric mild tendenress Skin : Warm, Dry Neurological : Alert & oriented x3, No focal deficit Objective Data Active Medications Acetaminophen (Acetaminophen 325 Mg Tablet) 650 mg PO Q6H PRN PRN Reason: Pain, Mild (Pain Scale 1-3) Last Admin: 08/12/22 19:37 Dose: 650 mg Documented By: SAMUEL Dextrose (Dextrose 50 % 25 Gm/50 Ml Syringe) 25 gm IVPUSH Q15M PRN; Protocol PRN Reason: per Hypoglycemia Standing Ord. Docusate Sodium (Docusate Sodium 100 Mg Capsule) 100 mg PO DAILY PRN PRN Reason: Constipation Enoxaparin Sodium (Enoxaparin Sodium 40 Mg/0.4 Ml Syringe) 40 mg SUBCUT Q24H [facility] Last Admin: 08/13/22 17:26 Dose: 40 mg Documented By: DABJazmyne Fenofibrate (Fenofibrate 160 Mg Tablet) 160 mg PO DAILY [facility] Last Admin: 08/14/22 07:56 Dose: 160 mg Documented By: OMERO Glucose (Glucose Gel 15 Gm Gel..Gram.) 15 gm PO Q15M PRN; Protocol PRN Reason: per Hypoglycemia Standing Ord. Guaifenesin/Dextromethorphan (Guaifenesin Dm 100/10/5 Ml 5 Ml Syrup) 5 ml PO Q4H PRN PRN Reason: cough Last Admin: 08/13/22 19:43 Dose: 5 ml Documented By: MADELAINE Hydromorphone HCl (Hydromorphone Hcl 0.5 Mg/0.5 Ml Syringe) 0.75 mg IVPUSH Q4H PRN; Protocol PRN Reason: Pain, Severe (Pain Scale 7-10) Last Admin: 08/14/22 06:44 Dose: 0.75 mg Documented By: TJ Thiamine HCl 100 mg/ Sodium (Chloride) 101 mls @ 202 mls/hr IV DAILY [facility] Last Infusion: 08/14/22 08:32 Dose: 0 mls/hr Documented By: OMERO Lactated Ringer's (Lr) 1,000 mls @ 100 mls/hr IVCONT .Q10H [facility] Last Admin: 08/14/22 06:03 Dose: 100 mls/hr Documented By: TJ Insulin Human Lispro (Insulin Lispro 100 Unit/Ml 3 Ml Vial) 0 unit SUBCUT Q6H [facility]; Protocol Last Admin: 08/14/22 07:56 Dose: 5 unit Documented By: OMERO Lidocaine (Lidocaine 4 % Patch Adh..Patch) 1 patch TRANSDERMA DAILY [facility]; Protocol Last Admin: 08/14/22 07:57 Dose: 1 patch Documented By: OMERO Lisinopril (Lisinopril 10 Mg Tablet) 10 mg PO DAILY [facility]; Protocol Last Admin: 08/14/22 07:56 Dose: 10 mg Documented By: OMERO Metoprolol Succinate (Metoprolol Succinate Er 50 Mg Tab.Er.24h) 50 mg PO DAILY [facility]; Protocol Last Admin: 08/14/22 07:56 Dose: 50 mg Documented By: OMERO Ondansetron HCl (Ondansetron Hcl 4 Mg/2 Ml Vial) 4 mg IVPUSH Q8H PRN PRN Reason: Nausea and Vomiting Last Admin: 08/10/22 21:26 Dose: 4 mg Documented By: KIRBY Pantoprazole Sodium (Pantoprazole Sodium 40 Mg/10 Ml Vial) 40 mg IVPUSH BID@0630,1630 [facility] Last Admin: 08/14/22 06:03 Dose: 40 mg Documented By: TJ Pharmacy Consult (Consult Rx Perform Med Rec) 1 each MISCELLANE ONCE PRN PRN Reason: Consult order Quetiapine Fumarate (Quetiapine Fumarate 300 Mg Tablet) 300 mg PO BEDTIME [facility] Last Admin: 08/13/22 22:29 Dose: 300 mg Documented By: MADELAINE Quetiapine Fumarate (Quetiapine Fumarate 50 Mg Tablet) 50 mg PO BID PRN PRN Reason: anxiety Last Admin: 08/12/22 19:38 Dose: 50 mg Documented By: SAMUEL Sertraline HCl (Sertraline Hcl 100 Mg Tablet) 100 mg PO DAILY [facility] Last Admin: 08/14/22 07:56 Dose: 100 mg Documented By: OMERO Sodium Chloride (0.9 % Sodium Chloride Flush 3 Ml Syringe) 3 ml IVFLUSH QSHIFT [facility] Last Admin: 08/14/22 07:56 Dose: 3 ml Documented By: OMERO Trazodone HCl (Trazodone Hcl 50 Mg Tablet) 150 mg PO BEDTIME [facility] Last Admin: 08/13/22 22:28 Dose: 150 mg Documented By: MADELAINE Labs 08/13/22 06:11 08/13/22 06:11 Labs: Laboratory Results - last 24 hr 08/13/22 08/13/22 08/13/22 10:27 13:53 20:14 POC Glucose 154 H 199 H 193 H 08/14/22 08/14/22 02:23 07:32 POC Glucose 190 H 178 H Assessment and Plan (1) Pancreatitis: Status: Acute (2) Alcohol use disorder: Status: Acute Plan d#4 52yo M with AUD, prior episodes of EtOH pancreatitis, DM2, HTN, HLD, mood disorder p/w 1 wk N/V/epigastric pain with ongoing EtOH abuse, hematemesis, cough admitted for recurrent acute pancreatitis # acute EtOH pancreatitis 1 Marai D's criterion on admission [hyperglycemia], 3 total at 48h [Hct drop, base deficit] trial of clears, advance as tolerated Continue LR, Zofran for nausea IV hydromorphone # euglycemic DKA versus alcoholic ketoacidosis resolved after D5LR + SQ Humalog plus IV bicarbonate discontinue Jardiance as outpt [was not continued upon admission] due to SGLT2i class effect of euglycemic DKA and risk factors of EtOH + pancreatic insufficiency # AUD Recovery Team evaluated, declined support continue thiamine # enterovirus/rhinovirus prn dextromethorphan # DM2, A1c 8.8 correction-dose lispro, d/c Jardiance as above # HTN lisinopril, metoprolol # mood disorder quetiapine, sertraline, trazodone # HLD fenofibrate # VTE ppx: LMWH # dispo: home once tolerates solid diet In my clinical judgment, the patient requires continued inpatient hospitalization for the following reasons: IV fluids, IV analgesia Time Spent With Patient Time: Total time managing care of this patient today ____ minutes. Quality Stroke Does the patient have a stroke diagnosis?: No VTE Prior VTE?: No VTE Risk Level:: Medical - moderate - high VTE Device Contraindication: Treatment Not Indicated VTE Drug Contraindication: N/A - Med Ordered
[2022-08-14] MEDS: QUEtiapine Fumarate 50 MG TABLET PO ×2 (11:18→23:18)
[2022-08-14 11:50] LABS: Glucose, Whole Blood 186 mg/dL (60-115)
--- NOTE | 2022-08-14 12:31 | PC.NURSE ---
Assumed care of patient at this time
[2022-08-14 15:10] LABS: Glucose, Whole Blood 124 mg/dL (60-115)
[2022-08-14] MEDS: guaiFENesin DM 100/10/5 ML 5 ML SYRUP PO ×2 (15:10→21:13)
[2022-08-14] MEDS: Docusate Sodium 100 MG CAPSULE PO (15:11)
[2022-08-14] MEDS: Acetaminophen 325 MG TABLET 650 MG PO ×2 (15:11→21:13)
[2022-08-14 15:54] VITALS: BP 125/61; PULSE 91; RESP 12; TEMP 36.3; O2SAT 96
--- NOTE | 2022-08-14 16:06 | MHC.CM.PN ---
Per MD rounds pt may dc tomorrow. DP home self care. Pt may need assist with transport.
[2022-08-14 16:20] LABS: Glucose, Whole Blood 149 mg/dL (60-115)
[2022-08-14] MEDS: Enoxaparin Sodium 40 MG/0.4 ML SYRINGE SUBCUT (19:15)
[2022-08-14 19:24] VITALS: BP 164/72; PULSE 78; RESP 18; TEMP 36.4; O2SAT 98
[2022-08-14] MEDS: QUEtiapine Fumarate 300 MG TABLET PO (20:14)
[2022-08-14] MEDS: traZODone HCL 50 MG TABLET 150 MG PO (20:14)
[2022-08-14 20:23] LABS: Glucose, Whole Blood 198 mg/dL (60-115)
[2022-08-14 22:22] VITALS: RESP 18
[2022-08-15 00:05] VITALS: RESP 18
[2022-08-15] MEDS: Lactated Ringers 1,000 ML 100 ML IVCONT ×2 (01:27→08:08)
[2022-08-15] MEDS: HYDROmorphone HCl 0.5 MG/0.5 ML SYRINGE 0.75 MG IVPUSH ×2 (03:19→07:49)
[2022-08-15 03:50] VITALS: RESP 18
[2022-08-15 04:00] VITALS: BP 130/76; PULSE 77; RESP 16; TEMP 36.4; O2SAT 94
[2022-08-15] MEDS: Pantoprazole Sodium 40 MG/10 ML VIAL IVPUSH (05:33)
[2022-08-15 06:41] LABS: Anion Gap 15 (12-20); Blood Urea Nitrogen 3 mg/dL (9-16); Calcium 9.8 mg/dL (8.4-10.2); Carbon Dioxide 25 mmol/L (22-29); Chloride 104 mmol/L (96-108); Creatinine Clr Calc Pharmacy 122.5; Estimated Glomerular Filt Rate > 60; Glucose Random 200 mg/dL (60-115); Potassium 3.5 mmol/L (3.3-5.1); Sodium 140 mmol/L (135-145)
[2022-08-15 07:45] VITALS: BP 175/93; PULSE 82; RESP 18; TEMP 36.1; O2SAT 98
[2022-08-15] MEDS: Insulin Lispro 100 UNIT/ML 3 ML VIAL SUBCUT ×2 (07:50→11:19)
[2022-08-15] MEDS: lisinopriL 10 MG TABLET PO (07:50)
[2022-08-15] MEDS: Fenofibrate 160 MG TABLET PO (07:50)
[2022-08-15] MEDS: Sertraline HCL 100 MG TABLET PO (07:50)
[2022-08-15] MEDS: Metoprolol Succinate ER 50 MG TAB.ER.24H PO (07:50)
[2022-08-15] MEDS: Thiamine HCL 100 MG in 0.9 % Sodium Chloride 100 ML 202 MG IV (07:51)
[2022-08-15] MEDS: guaiFENesin DM 100/10/5 ML 5 ML SYRUP PO (08:08)
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
--- NOTE | 2022-08-15 11:32 | PC.NURSE ---
pt being discharged. all belongings with pt. paperowkr given to pt. pt educated and script from MD given to Pt. IV removed.
== END 2022-08-15 11:31 | disposition home or self-care (01) | DRG 439 ==
LOC: HO.ED 15:48 → HO.EDOVER 18:58 → HO.S3 19:09
PROVIDERS: Family Medicine; Admitting Provider Student in an Organized Health Care Education/Training Program; Emergency Provider Emergency Medicine; PCP Internal Medicine; Visit Provider Student in an Organized Health Care Education/Training Program
DX: K85.20 Alcohol induced acute pancreatitis without necrosis or infection (principal); E87.29 Other acidosis; K92.0 Hematemesis; F39 Unspecified mood [affective] disorder; E11.9 Type 2 diabetes mellitus without complications; E78.5 Hyperlipidemia, unspecified; B34.1 Enterovirus infection, unspecified; B34.8 Other viral infections of unspecified site; I10 Essential (primary) hypertension; F10.10 Alcohol abuse, uncomplicated; Z20.822 Contact with and (suspected) exposure to COVID-19; Z79.84 Long term (current) use of oral hypoglycemic drugs; Z79.899 Other long term (current) drug therapy
CPT/HCPCS: 36415; 71046; 74177; 76705; 80048; 80053; 81001; 82010; 82803; 82947; 83036; 83605; 83615; 83690; 83735; 83930; 84478; 85025; 85027; 85610; 85730; 87633; 99285; J1170; J1650; J2270; J2405; J3411; Q9967

== ENCOUNTER 2022-09-15 11:34 | Emergency (ER) | payer OTHER, SELFPAY ==
--- NOTE | ~2022-09-15 | CT_ITS ---
EXAMINATION: CT CERVICAL SPINE WITHOUT CONTRAST CLINICAL INFORMATION: Trauma COMPARISON: None available. TECHNIQUE: Helical, multidetector axial images were obtained from the occiput to the upper thorax. Coronal and sagittal reformats of the cervical spine were provided for interpretation. This CT examination was performed using dose optimization techniques as appropriate, variously including the following: *Automated exposure control *Adjustment of mA and/or kV according to patient size (this includes techniques or standardized protocols for targeted exams where dose is matched to indication/reason for exam; i.e. extremities or head) *Use of iterative reconstruction technique DLP: 1154 mGy-cm FINDINGS: No acute fractures or dislocations of the cervical spine are seen. Slight reversal of curvature of the mid cervical spine. Grade 1 anterolisthesis of C4 on C5. Grade 1 retrolisthesis of C6 on C7. Multilevel degenerative changes disc space narrowing, subchondral cystic changes, vacuum disc phenomenon, osteophyte formation, and facet arthropathy. Anatomic alignment and positioning of the vertebral bodies and posterior elements is noted. The atlantoaxial joint and craniovertebral articulations are normal without evidence of subluxation. There is no prevertebral soft tissue swelling. The thyroid gland and visualized portions of the lung apices and mediastinum are unremarkable. CT/CT cervical spine wo IV con IMPRESSION: 1. No acute visible fracture or dislocation. 2. Slight reversal of curvature of the mid cervical spine. 3. Grade 1 anterolisthesis of C4 on C5. Grade 1 retrolisthesis of C6 on C7. 4. Multilevel degenerative changes.
--- NOTE | ~2022-09-15 | CT_ITS ---
EXAMINATION: CT CHEST WITHOUT CONTRAST CLINICAL INFORMATION: Acute anterior traumatic chest wall pain COMPARISON: Chest radiograph from 09/09/2022 TECHNIQUE: Multidetector volumetric CT imaging of the chest was done. Axial MIP volume rendering provided. Sagittal and coronal reformatted images were obtained. This CT examination was performed using dose optimization techniques as appropriate, variously including the following: *Automated exposure control *Adjustment of mA and/or kV according to patient size (this includes techniques or standardized protocols for targeted exams where dose is matched to indication/reason for exam; i.e. extremities or head) *Use of iterative reconstruction technique DLP: 1154 mGy-cm FINDINGS: LUNGS/PLEURA: Respiratory motion artifact slightly limits evaluation. Slight biapical pleural parenchymal scarring. 2 mm nodule anterior aspect of the right upper lobe (series 3 ).Likely chronic region of mucus plugging in the posterior lateral aspect right CCA 13, image 2). 3 mm of solid nodule in the left lung apex (series 13, image 48). 3 mm subpleural nodule in the anterolateral of the left upper lobe (series 13, image 227) 3 mm nodule along the lateral aspect of the left major fissure (series 13 image 197). Central airways are patent. No pneumothorax. No large MEDIASTINUM: Heart is not enlarged. No pericardial effusion. Coronary artery calcifications are noted. Aorta is nonaneurysmal and demonstrates atherosclerotic calcifications. Main pulmonary artery is not enlarged. No enlarged lymph nodes per size criteria. Visualized portions of the thyroid AXILLA: No lymphadenopathy. UPPER ABDOMEN: Unremarkable. OSSEOUS STRUCTURES: Multilevel degenerative changes of the thoracolumbar spine with anterior bridging osteophytes. CT/CT chest wo IV con IMPRESSION: 1. No acute process of the chest identified. 2. Multiple bilateral pulmonary nodules are noted the largest measuring up to 3 mm. Follow-up as per Fleischner criteria. Various management parameters for solitary pulmonary nodules are in the literature. According to the Fleischner Society, recommendations for pulmonary nodules are as follows: According to the UPDATED 2017 Fleischner Society recommendations, the advised follow-up imaging for solid nodules < 6 mm is: LOW RISK PATIENT: No routine follow-up. HIGH RISK PATIENT: Optional CT at 12 months.
[2022-09-15 11:46] LABS: Glucose, Whole Blood 592 mg/dL (60-115)
[2022-09-15 11:48] VITALS: BP 118/82; BP 133/74; PULSE 83; PULSE 85; RESP 16; TEMP 36.7; O2SAT 95; BMI 29.3
--- NOTE | 2022-09-15 11:51 | ECG_ITS ---
Test Reason : chest pain Blood Pressure : / mmHG Vent. Rate : 081 BPM Atrial Rate : 081 BPM P-R Int : 178 ms QRS Dur : 092 ms QT Int : 382 ms P-R-T Axes : 039 -09 024 degrees QTc Int : 443 ms Normal sinus rhythm Incomplete right bundle branch block Borderline ECG When compared with ECG of 23-JUN-2022 20:21, Premature ventricular complexes are no longer Present Referred By: Steven Dominguez Electronically Signed By:PATRICIA MOTLEY
[2022-09-15 11:52] LABS: Glucose, Whole Blood 577 mg/dL (60-115)
[2022-09-15 12:07] LABS: MANUAL DIFF FLAG NO
[2022-09-15 12:09] LABS: Basophils Absolute Auto 0.1 X10*3/uL (0.0-0.2); Basophils Percent Auto 0.6 % (0-2); Eosinophils Absolute Auto 0.1 X10*3/uL (0.0-0.4); Eosinophils Percent Auto 1.3 % (0-4); Hematocrit 36.6 % (42.0-52.0); Hemoglobin 12.5 g/dl (14.0-18.0); Imm Gran Abs Auto 0.05 X10*3/uL (0.00-0.03); Imm Gran Pct Auto 0.6 % (0.0-0.4); Lymphocytes Absolute Auto 1.4 X10*3/uL (1.2-4.9); Lymphocytes Percent Auto 17.8 % (20-40); Mean Corpuscular HGB Conc 34.2 g/dl (31.0-36.0); Mean Corpuscular Hemoglobin 31.3 pg (27.0-33.0); Mean Corpuscular Volume 91.5 fL (80.0-98.0); Mean Platelet Volume 9.8 fL (9.4-12.4); Monocytes Absolute Auto 0.7 X10*3/uL (0.1-1.2); Monocytes Percent Auto 8.3 % (2-11); Neutrophils Absolute Auto 5.7 x10*3/uL (2.0-8.3); Neutrophils Percent Auto 71.4 % (45-73); Platelet Count 209 X10*3/uL (160-400); Red Cell Distribution Width 12.4 % (11.0-16.0)
[2022-09-15] MEDS: Ketorolac Tromethamine 15 MG/ML VIAL IVPUSH (12:18)
[2022-09-15] MEDS: 0.9 % Sodium Chloride 1,000 ML 999 ML IV (12:18)
[2022-09-15] MEDS: Insulin Lispro 100 UNIT/ML 3 ML VIAL 15 UNIT SUBCUT (12:19)
[2022-09-15 12:21] LABS: Glucose, Whole Blood > 600 mg/dL (60-115)
[2022-09-15 12:27] LABS: Anion Gap 18 (12-20); Blood Urea Nitrogen 15 mg/dL (9-16); Calcium 10.2 mg/dL (8.4-10.2); Carbon Dioxide 24 mmol/L (22-29); Chloride 98 mmol/L (96-108); Creatinine Clr Calc Pharmacy 67.1; Estimated Glomerular Filt Rate 57; Glucose Random 599 mg/dL (60-115); Potassium 4.5 mmol/L (3.3-5.1); Sodium 135 mmol/L (135-145)
[2022-09-15 12:53] LABS: Appearance Urine Clear; Color Urine Yellow; Glucose Urine UA >=1000 mg/dL (Negative); Leukocyte Esterase Urine Negative (Negative); Nitrite Urine Negative (Negative); PH 7.5 (5.0-9.0); Specific Gravity - Urine >= 1.030 (1.005-1.025); UMIC TRIGGER UACC YES; Urine Blood Negative (Negative); Urine Ketones Negative (Negative); Urine Protein Negative (Neg-Trace)
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
[2022-09-15 13:16] VITALS: BP 126/78; PULSE 73; RESP 16; TEMP 36.8; O2SAT 97
[2022-09-15 13:40] LABS: Bacteria Urine None Seen (None Seen); Hyaline Casts Urine 0-2 /LPF (0-2); RBC Urine 0-2 /HPF (0-2); Squamous Epithelial Cell Urine 0-2 /HPF (0-2); WBC Urine 0-5 /HPF (0-5)
[2022-09-15 13:48] LABS: Glucose, Whole Blood 324 mg/dL (60-115)
[2022-09-15] MEDS: Insulin Lispro 100 UNIT/ML 3 ML VIAL 10 UNIT SUBCUT (13:53)
[2022-09-15 15:34] VITALS: BP 133/80; PULSE 73; RESP 16; TEMP 36.7; O2SAT 98
[2022-09-15 16:12] LABS: Glucose, Whole Blood 53 mg/dL (60-115)
[2022-09-15] MEDS: hydrOXYzine HCL 25 MG TABLET PO (16:14)
[2022-09-15] MEDS: Ondansetron ODT 4 MG TAB.RAPDIS TRANSLINGU (16:14)
--- NOTE | 2022-09-15 16:20 | PC.NURSE ---
pt blood sugar dropped to 53. pt given orange juice, sandwich and cheese sticks. pt also reporting anxiety and nausea, pt medicated per MD order.
[2022-09-15 16:54] VITALS: BP 122/77; PULSE 86; RESP 16; O2SAT 99
[2022-09-15 16:56] LABS: Glucose, Whole Blood 190 mg/dL (60-115)
== END 2022-09-15 18:53 | disposition still patient (30) ==
PROVIDERS: Emergency Provider Emergency Medicine; PCP Internal Medicine
DX: Z04.1 Encounter for examination and observation following transport accident (principal); R07.89 Other chest pain; M54.2 Cervicalgia; R20.2 Paresthesia of skin; E11.65 Type 2 diabetes mellitus with hyperglycemia; I10 Essential (primary) hypertension; F12.90 Cannabis use, unspecified, uncomplicated; Z79.899 Other long term (current) drug therapy
CPT/HCPCS: 36415; 71250; 72125; 80048; 81001; 82947; 85025; 93005; 96361; 96374; 99285; J1885

== ENCOUNTER → 2022-09-15 11:51 | Outpatient (BNV) | payer OTHER, SELFPAY | PROVIDERS: Emergency Provider Emergency Medicine; PCP Internal Medicine; Visit Provider Internal Medicine | DX: R07.9 Chest pain, unspecified (principal) | CPT/HCPCS: 93010 ==

== ENCOUNTER 2022-11-03 09:15 | Outpatient (AMB) | payer OTHER, SELFPAY ==
[2022-11-03 09:45] VITALS: BMI 29.3
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
== END 2022-11-03 10:50 | disposition home or self-care (01) ==
PROVIDERS: PCP Internal Medicine; Visit Provider Physician Assistant
DX: M79.18 Myalgia, other site (principal); M54.2 Cervicalgia; V78.1XXA Passenger on bus injured in noncollision transport accident in nontraffic accident, initial encounter; Z04.3 Encounter for examination and observation following other accident
CPT/HCPCS: 99214

== ENCOUNTER 2022-11-03 11:22 | Outpatient (REF) | payer OTHER, SELFPAY ==
--- NOTE | ~2022-11-03 | XR_ITS ---
EXAMINATION: XR SHOULDER, RIGHT CLINICAL INFORMATION: Pain in unspecified shoulder. COMPARISON: 06/05/2016. TECHNIQUE: 3 views of the right shoulder. FINDINGS: Degenerative changes in the imaged upper thoracic spine. Degenerative changes with hypertrophic change at the acromioclavicular joint. Redemonstration of relative superior elevation of the distal clavicle with respect to the acromion. Small corticated ossicle along the superior aspect of the acromioclavicular joint. Progression of degenerative changes with hypertrophic change at the glenohumeral joint. XR/XR shoulder RT min 2V IMPRESSION: Degenerative changes as detailed above.
== END 2022-11-03 11:23 | disposition home or self-care (01) ==
LOC: HO.HOSX 11:22
PROVIDERS: Visit Provider Physician Assistant
DX: M25.511 Pain in right shoulder (principal); M79.18 Myalgia, other site; M54.2 Cervicalgia
CPT/HCPCS: 73030; 99212

== ENCOUNTER 2022-11-04 08:18 | Outpatient (AMB) | payer OTHER, SELFPAY ==
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
[2022-11-04 08:36] VITALS: BMI 29.3
== END 2022-11-04 10:24 | disposition home or self-care (01) ==
PROVIDERS: PCP Internal Medicine; Visit Provider Physical Medicine & Rehabilitation
DX: S43.101A Unspecified dislocation of right acromioclavicular joint, initial encounter (principal); V78.1XXA Passenger on bus injured in noncollision transport accident in nontraffic accident, initial encounter; Z04.3 Encounter for examination and observation following other accident
CPT/HCPCS: 99205

== ENCOUNTER → 2022-11-04 08:18 | Outpatient (BNVA) | payer OTHER, SELFPAY | PROVIDERS: PCP Internal Medicine; Visit Provider Physical Medicine & Rehabilitation ==

== ENCOUNTER 2022-11-25 09:00 | Outpatient (AMB) | payer OTHER, SELFPAY ==
[2022-11-25 09:09] VITALS: BMI 29.3
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
== END 2022-11-25 09:46 | disposition home or self-care (01) ==
PROVIDERS: PCP Internal Medicine; Visit Provider Physical Medicine & Rehabilitation
DX: M19.011 Primary osteoarthritis, right shoulder (principal); M75.81 Other shoulder lesions, right shoulder
CPT/HCPCS: 20610; 99214

== ENCOUNTER → 2022-11-25 09:00 | Outpatient (BNVA) | payer OTHER, SELFPAY | PROVIDERS: PCP Internal Medicine; Visit Provider Physical Medicine & Rehabilitation | DX: M19.011 Primary osteoarthritis, right shoulder (principal); M75.81 Other shoulder lesions, right shoulder | CPT/HCPCS: 20610; 99212; J3301 ==

== ENCOUNTER 2022-12-11 10:10 | Outpatient (AMB) | payer OTHER, SELFPAY ==
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
== END 2022-12-11 11:08 | disposition home or self-care (01) ==
PROVIDERS: PCP Internal Medicine; Visit Provider Orthopaedic Surgery
DX: M70.72 Other bursitis of hip, left hip (principal)
CPT/HCPCS: 20610; 99213

== ENCOUNTER → 2022-12-11 10:10 | Outpatient (BNVA) | payer OTHER, SELFPAY | PROVIDERS: PCP Internal Medicine; Visit Provider Orthopaedic Surgery | DX: M70.62 Trochanteric bursitis, left hip (principal); M19.011 Primary osteoarthritis, right shoulder | CPT/HCPCS: 20610; 99212; J1100 ==

== ENCOUNTER 2023-01-04 10:00 | Outpatient (RCR) | payer OTHER, SELFPAY ==
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
--- NOTE | 2023-02-18 14:32 | MHC.PT.DC ---
[facility] [place] Office [place] Office [place] Office [address] [phone] F: [phone] F: [phone] F: [phone] F: [phone] Physical Therapy Discharge Report Diagnosis: MD diagnosis: cervicalgia, myalgia PT diagnosis: R shoulder pain (RL) Date of Surgery: N/A Date of Evaluation: 12/15/22 Date of Discharge: 02/18/23 Treatments to Date: 7 Cancellations to Date: 2 No Shows to Date: 0 Discharge Status: Improved Function Independent with HEP Discharge Summary: The patient overall was reporting less pain with physical therapy. He was instructed in both a home and gym exercise program to continue on his own. He is discharged from this physical therapy plan of care. Electronically signed by: Linda Ontiveros PT, DPT Please sign and return to therapist. Thank you for your referral.
== END 2023-02-18 14:32 | disposition home or self-care (01) ==
LOC: HO.PT 10:00
PROVIDERS: Visit Provider Physician Assistant
DX: M19.011 Primary osteoarthritis, right shoulder (principal); M79.18 Myalgia, other site
CPT/HCPCS: 97110; 97140; 97162; 97530

== ENCOUNTER 2023-03-09 15:39 | Inpatient (IN) | payer OTHER, SELFPAY ==
--- NOTE | ~2023-03-09 | CT_ITS ---
EXAMINATION: CT ABDOMEN AND PELVIS WITHOUT CONTRAST CLINICAL INFORMATION: Complicated pancreatitis COMPARISON: CT abdomen pelvis and abdominal ultrasound dated 08/10/2022 TECHNIQUE: Multidetector volumetric imaging was performed from the superior aspect of the liver through the pubic symphysis. Sagittal and coronal reformatted images were obtained on the technologist's workstation. This CT examination was performed using dose optimization techniques as appropriate, variously including the following: *Automated exposure control *Adjustment of mA and/or kV according to patient size (this includes techniques or standardized protocols for targeted exams where dose is matched to indication/reason for exam; i.e. extremities or head) *Use of iterative reconstruction technique DLP: 562 mGy-cm FINDINGS: LUNG BASES: The visualized lung bases are unremarkable. LIVER, GALLBLADDER, AND BILIARY TREE: The liver is normal in size and shape but demonstrates decreased attenuation consistent with hepatic steatosis. No focal hepatic lesion or biliary ductal dilatation is present. The gallbladder is unremarkable with no evidence of radiopaque gallstones, gallbladder wall thickening, or obvious pericholecystic inflammatory changes. PANCREAS: Peripancreatic stranding is again seen similar to 2022, possibly slightly increased consistent with pancreatitis. No pancreatic stones are seen. No ductal dilatation is seen. Study is limited because of lack of IV contrast. No drainable peripancreatic fluid collections are seen. SPLEEN: Unremarkable. ADRENAL GLANDS: Unremarkable. KIDNEYS AND URETERS: The kidneys are normal in size, shape, and attenuation. No hydronephrosis, hydroureter, or calculi seen. No perinephric stranding. BLADDER: Unremarkable. GASTROINTESTINAL TRACT: The small and large bowel are unremarkable. The appendix is unremarkable. ABDOMINAL WALL: A periumbilical hernia seen containing only fat. There has been prior lower abdominal wall hernia repair. LYMPH NODES: No retroperitoneal lymphadenopathy. Some small shotty lymph nodes are seen in the region of the gastrohepatic ligament and periceliac region. VASCULAR: Minimal calcific atherosclerotic changes are present in the aorta and iliofemoral vessels. There is no evidence of an abdominal aortic aneurysm. PELVIC VISCERA: The prostate and seminal vesicles are unremarkable. OSSEOUS STRUCTURES: Unremarkable. CT/CT abdomen pelvis wo IV con IMPRESSION: 1. Peripancreatic stranding consistent with pancreatitis. No drainable peripancreatic fluid collections are seen. 2. Incidental note made of hepatic steatosis, periumbilical hernia containing only fat and prior lower abdominal wall hernia repair. Fleischner guidelines were followed.
[2023-03-09 15:55] VITALS: BP 152/98; PULSE 89; O2SAT 98
[2023-03-09 16:28] VITALS: BP 153/84; PULSE 81; RESP 18; TEMP 36.6; O2SAT 96; BMI 31.0
--- NOTE | 2023-03-09 16:28 | ED_ITS ---
HPI - Abdominal Pain General Chief Complaint: Abdominal Pain Stated Complaint: upper quadrant pain, hx pancreatitis, back pain Time Seen by Provider: 03/09/23 21:22 Source: patient Mode of arrival: EMS Limitations: no limitations History of Present Illness HPI narrative: Patient's history of recurrent pancreatitis for last 8 years with history of alcohol comes here for increased pain in the back and upper abdomen with nausea vomiting for last 2 days patient does have a triglyceride level in 500 range in 2021 but pancreatitis been likely with alcohol use patient does not drink that much , 5 days ago had 3 beers was good for 2 days and then pain started patient has vomited several times tender to touch get worse on taking deep breath and on ambulation Related Data Home Medications Medication Instructions Recorded Confirmed quetiapine 300 mg tablet 300 mg PO BEDTIME 02/27/20 11/25/22 trazodone 150 mg tablet 150 mg PO BEDTIME 02/27/20 11/25/22 lisinopril 10 mg tablet 1 tab PO DAILY 11/04/20 11/25/22 sertraline 100 mg tablet 1 tab PO DAILY 06/23/21 11/25/22 quetiapine 50 mg tablet 50 mg PO BID PRN anxiety 06/24/22 11/25/22 metoprolol succinate 50 mg 50 mg PO DAILY 08/10/22 11/25/22 tablet,extended release 24 hr Previous Rx's Medication Instructions Recorded fenofibrate nanocrystallized 145 145 mg PO DAILY #30 tabs 11/19/21 mg tablet (Tricor) famotidine 20 mg tablet 20 mg PO BID #60 tabs 06/26/22 ondansetron 4 mg disintegrating 4 mg PO Q8H PRN nausea and 08/15/22 tablet vomiting #20 tabs cyclobenzaprine 10 mg tablet 10 mg PO TID PRN muscle spasm #10 09/15/22 tabs meloxicam 15 mg tablet 15 mg PO DAILY #14 tabs 11/25/22 Allergies Allergy/AdvReac Type Severity Reaction Status Date / Time sildenafil [From Viagra] Allergy Unknown Verified 11/25/22 09:15 Review of Systems Review of Systems Yes all other systems are reviewed and are negative PMFSH Past Medical History Medical History Acromioclavicular joint arthritis Alcohol use disorder Cocaine abuse Alcohol withdrawal Duodenitis Diabetes mellitus Arthritis Alcohol abuse Cocaine abuse Seizures Hypertension Pancreatitis Surgical History H/O hernia repair Family History Family History Other CAD (coronary artery disease) Diabetes mellitus Social History Social History Household Members: None Housing: Apartment Do you presently have visiting nurse or other home services: No Alcohol intake: never Comment: refuses fall risk precautions Patient Tobacco Use Status: Never used Tobacco Second Hand Smoke Exposure: No Substance Use Type: Marijuana Advance Directives: Yes Advance Directives on File: Yes Advance Directives Date on File: 02/27/20 service: No Current occupational status: disabled Physical Exam ED Vital Signs: Vital Signs - 24 hr 03/09/23 16:28 03/09/23 21:21 03/10/23 01:32 Temperature 97.9 F 98.4 F Pulse Rate 81 76 76 Respiratory Rate 18 20 17 Blood Pressure 153/84 H 177/100 H 138/87 Pulse Oximetry 96 98 98 Oxygen Delivery Method Room Air Room Air Room Air BMI result Body Mass Index 31.0 Appearance: Alert. Oriented X3. In moderate distress Eyes: No pallor ENT: Pharynx normal. Oral Mucosa moist Neck: Normal inspection. Neck supple. CVS: Normal heart rate and rhythm. Pulses normal. Respiratory: No respiratory distress. Equal air entry bilateral, no wheezing/rales/rhonchi Abdomen: Soft slightly distended tender mid abdomen with guarding , no rebound tenderness Bowel sounds are present, no mass palpable, no CVA tenderness Skin: Skin warm and dry. Normal skin color. Normal skin turgor. Extremities: No lower extremity edema. No calf tenderness Neuro: Oriented X 3. No motor deficit. Course Course Course Narrative: RME: 53 year-old M w/ PMHx pancreatitis, alcohol use disorder, DM, HTN, HLD, mood disorder, presenting to the ED c/o upper abdominal pain w/N/V and inability to tolerate PO x yesterday. Admits to drinking 1-2 beers on weekends EKG, Labs, UA ordered Full HPI, ROS and PE to be performed by primary ED provider. Medical Decision Making Medical Decision Making MDM Narrative: Patient has recurrent pancreatitis likely from alcohol use comes here for abdominal pain with elevated lipase CT scan showed inflammation of the pancreas will admit patient for pain control and IV hydration Differential Diagnosis Differential Diagnoses: The differential diagnosis associated with the presentation includes Acute pancreatitis/gastritis/cholecystitis Admission/Observation Consideration of admission/observation: Escalation of care including admission/observation considered Consult Healthcare Provider Management of the patient was discussed with: Hospitalist Lab Data [facility] Lab Attestation statement: I reviewed the patient's lab results. 03/09/23 17:52 03/09/23 17:52 Labs: Lab Results 03/09/23 03/09/23 Range/Units 17:52 18:55 WBC 8.0 (4.8-10.8) X10*3/uL RBC 4.60 (4.60-5.80) X10*6/uL Hgb 14.3 (14.0-18.0) g/dl Hct 41.3 L (42.0-52.0) % MCV 89.8 (80.0-98.0) fL MCH 31.1 (27.0-33.0) pg MCHC 34.6 (31.0-36.0) g/dl RDW 11.7 (11.0-16.0) % Plt Count 148 L D (160-400) X10*3/uL MPV 9.3 L (9.4-12.4) fL Immature Gran % (Auto) 0.2 (0.0-0.4) % Neut % (Auto) 70.6 (45-73) % Lymph % (Auto) 18.3 L (20-40) % [place] % (Auto) 9.1 (2-11) % Eos % (Auto) 1.2 (0-4) % Baso % (Auto) 0.6 (0-2) % Lymph # (Auto) 1.5 (1.2-4.9) X10*3/uL [place] # (Auto) 0.7 (0.1-1.2) X10*3/uL Eos # (Auto) 0.1 (0.0-0.4) X10*3/uL Baso # (Auto) 0.1 (0.0-0.2) X10*3/uL Abs Immat Gran (auto) 0.02 (0.00-0.03) X10*3/uL Absolute Neuts (auto) 5.7 (2.0-8.3) x10*3/uL Absolute Nucleated RBC 0.000 (0.0-0.012) X10*3/uL Nucleated RBC % (auto) 0.0 (0.0-0.2) /100WBC Sodium 137 (135-145) mmol/L Potassium 3.9 (3.3-5.1) mmol/L Chloride 100 (96-108) mmol/L Carbon Dioxide 26 (22-29) mmol/L Anion Gap 15 (12-20) BUN 15 (9-16) mg/dL Creatinine 0.90 (0.5-1.4) mg/dL Estim Creat Clear Calc 99.0 Estimated GFR > 60 Random Glucose 255 H (60-115) mg/dL Calcium 9.5 D (8.4-10.2) mg/dL Magnesium 1.6 (1.6-2.6) mg/dL Total Bilirubin 0.5 (0.0-1.0) mg/dL Direct Bilirubin 0.2 (0.0-0.5) mg/dL AST 30 (5-37) U/L ALT 30 (0-40) U/L Alkaline Phosphatase 68 (39-117) U/L Lactate Dehydrogenase 158 (118-273) U/L Total Protein 7.4 (6.5-8.0) g/dL Albumin 4.4 (3.5-5.0) g/dL Triglycerides 214 H (<150) mg/dL Lipase 880 H (8-78) U/L Urine Color Yellow Urine Appearance Turbid Urine pH 8.0 (5.0-9.0) Ur Specific [place] >= 1.030 H (1.005-1.025) Urine Protein Negative (Neg-Trace) mg/dL Urine Glucose (UA) 500 H (Negative) mg/dL Urine Ketones Trace (Negative) mg/dL Urine Blood Negative (Negative) Urine Nitrite Negative (Negative) Ur Leukocyte Esterase Negative (Negative) Urine Opiates Screen Not Detected (Not Detect) Urine Fentanyl Screen Not Detected (Not Detect) Ur Barbiturates Screen Not Detected (Not Detect) Ur Phencyclidine Scrn Not Detected (Not Detect) Ur Amphetamines Screen Not Detected (Not Detect) U Benzodiazepines Scrn Not Detected (Not Detect) Urine Cocaine Screen POSITIVE H (Not Detect) U Marijuana (THC) Screen Not Detected (Not Detect) Ethyl Alcohol < 10 mg/dL COVID-19 (BUD) Negative (Negative) COVID-19 Clin Com See Note Independent Interpretation I performed an independent interpretation of an: CT Scan Radiology Impression Discussion of test interpretation with radiology: I have reviewed the radiologist's reading. Radiologist Impression: [address] [address] [address] Scan Report Signed Patient: Maico Hall MR#: [id number] : 1970 Acct:[id number] Age/Sex: 53 / M ADM Date: 03/09/23 Loc: HO.ED Attending Dr: Ordering Physician: Jose A Randall MD Date of Service: 03/09/23 Procedure(s): CT abdomen pelvis wo IV con Accession Number(s): [id number] cc: CRISTIANA RAHMAN MD; Jose A Randall MD~ EXAMINATION: CT ABDOMEN AND PELVIS WITHOUT CONTRAST CLINICAL INFORMATION: Complicated pancreatitis COMPARISON: CT abdomen pelvis and abdominal ultrasound dated 08/10/2022 TECHNIQUE: Multidetector volumetric imaging was performed from the superior aspect of the liver through the pubic symphysis. Sagittal and coronal reformatted images were obtained on the technologist's workstation. This CT examination was performed using dose optimization techniques as appropriate, variously including the following: *Automated exposure control *Adjustment of mA and/or kV according to patient size (this includes techniques or standardized protocols for targeted exams where dose is matched to indication/reason for exam; i.e. extremities or head) *Use of iterative reconstruction technique DLP: 562 mGy-cm FINDINGS: LUNG BASES: The visualized lung bases are unremarkable. LIVER, GALLBLADDER, AND BILIARY TREE: The liver is normal in size and shape but demonstrates decreased attenuation consistent with hepatic steatosis. No focal hepatic lesion or biliary ductal dilatation is present. The gallbladder is unremarkable with no evidence of radiopaque gallstones, gallbladder wall thickening, or obvious pericholecystic inflammatory changes. PANCREAS: Peripancreatic stranding is again seen similar to 2022, possibly slightly increased consistent with pancreatitis. No pancreatic stones are seen. No ductal dilatation is seen. Study is limited because of lack of IV contrast. No drainable peripancreatic fluid collections are seen. SPLEEN: Unremarkable. ADRENAL GLANDS: Unremarkable. KIDNEYS AND URETERS: The kidneys are normal in size, shape, and attenuation. No hydronephrosis, hydroureter, or calculi seen. No perinephric stranding. BLADDER: Unremarkable. GASTROINTESTINAL TRACT: The small and large bowel are unremarkable. The appendix is unremarkable. ABDOMINAL WALL: A periumbilical hernia seen containing only fat. There has been prior lower abdominal wall hernia repair. LYMPH NODES: No retroperitoneal lymphadenopathy. Some small shotty lymph nodes are seen in the region of the gastrohepatic ligament and periceliac region. VASCULAR: Minimal calcific atherosclerotic changes are present in the aorta and iliofemoral vessels. There is no evidence of an abdominal aortic aneurysm. PELVIC VISCERA: The prostate and seminal vesicles are unremarkable. OSSEOUS STRUCTURES: Unremarkable. CT/CT abdomen pelvis wo IV con IMPRESSION: 1. Peripancreatic stranding consistent with pancreatitis. No drainable peripancreatic fluid collections are seen. 2. Incidental note made of hepatic steatosis, periumbilical hernia containing only fat and prior lower abdominal wall hernia repair. Fleischner guidelines were followed. Medications Administered Generic Name Dose Route Start Last Admin Trade Name Freq PRN Reason Stop Dose Admin Sodium Chloride 1,000 mls @ 999 mls/hr 03/10/23 01:23 03/10/23 01:31 Ns IV 03/10/23 02:23 999 mls/hr .Q1H1M ONE Administration Discontinued Medications Generic Name Dose Route Start Last Admin Trade Name Freq PRN Reason Stop Dose Admin Hydromorphone HCl 2 mg 03/10/23 01:23 03/10/23 01:31 Hydromorphone Hcl 2 Mg/Ml Vial IVPUSH 03/10/23 01:24 2 mg ONCE ONE Administration Protocol Sodium Chloride 1,000 mls @ 999 mls/hr 03/09/23 21:23 03/09/23 22:59 Ns IV 03/09/23 22:23 Infused .Q1H1M ONE Infusion Morphine Sulfate 4 mg 03/09/23 21:23 03/09/23 21:35 Morphine Sulfate 4 Mg/Ml Cartridge IVPUSH 03/09/23 21:24 4 mg ONCE ONE Administration Protocol Ondansetron HCl 4 mg 03/09/23 21:23 03/09/23 21:35 Ondansetron Hcl 4 Mg/2 Ml Vial IVPUSH 03/09/23 21:24 4 mg ONCE ONE Administration Discharge Plan Discharge Clinical Impression: Pancreatitis Patient Disposition: Admitted As Inpatient
--- NOTE | 2023-03-09 16:31 | ECG_ITS ---
Test Reason : UPPER ABD PAIN Blood Pressure : / mmHG Vent. Rate : 072 BPM Atrial Rate : 072 BPM P-R Int : 164 ms QRS Dur : 088 ms QT Int : 396 ms P-R-T Axes : 041 -05 015 degrees QTc Int : 433 ms Normal sinus rhythm Normal ECG When compared with ECG of 15-SEP-2022 12:17, Nonspecific T wave abnormality no longer evident in Lateral leads Referred By: Dorcas Jackson Electronically Signed By:Chava Golden
[2023-03-09 17:56] LABS: MANUAL DIFF FLAG NO
[2023-03-09 17:59] LABS: Basophils Absolute Auto 0.1 X10*3/uL (0.0-0.2); Basophils Percent Auto 0.6 % (0-2); Eosinophils Absolute Auto 0.1 X10*3/uL (0.0-0.4); Eosinophils Percent Auto 1.2 % (0-4); Hematocrit 41.3 % (42.0-52.0); Hemoglobin 14.3 g/dl (14.0-18.0); Imm Gran Abs Auto 0.02 X10*3/uL (0.00-0.03); Imm Gran Pct Auto 0.2 % (0.0-0.4); Lymphocytes Absolute Auto 1.5 X10*3/uL (1.2-4.9); Lymphocytes Percent Auto 18.3 % (20-40); Mean Corpuscular HGB Conc 34.6 g/dl (31.0-36.0); Mean Corpuscular Hemoglobin 31.1 pg (27.0-33.0); Mean Corpuscular Volume 89.8 fL (80.0-98.0); Mean Platelet Volume 9.3 fL (9.4-12.4); Monocytes Absolute Auto 0.7 X10*3/uL (0.1-1.2); Monocytes Percent Auto 9.1 % (2-11); Neutrophils Absolute Auto 5.7 x10*3/uL (2.0-8.3); Neutrophils Percent Auto 70.6 % (45-73); Platelet Count 148 X10*3/uL (160-400); Red Cell Distribution Width 11.7 % (11.0-16.0)
[2023-03-09 18:14] LABS: Alanine Aminotransferase 30 U/L (0-40); Albumin Level 4.4 g/dL (3.5-5.0); Alkaline Phosphatase 68 U/L (39-117); Anion Gap 15 (12-20); Aspartate Amino Transferase 30 U/L (5-37); Bilirubin Direct 0.2 mg/dL (0.0-0.5); Bilirubin Total 0.5 mg/dL (0.0-1.0); Blood Urea Nitrogen 15 mg/dL (9-16); Calcium 9.5 mg/dL (8.4-10.2); Carbon Dioxide 26 mmol/L (22-29); Chloride 100 mmol/L (96-108); Estimated Glomerular Filt Rate > 60; Ethanol < 10 mg/dL; Glucose Random 255 mg/dL (60-115); Lactate Dehydrogenase 158 U/L (118-273); Magnesium 1.6 mg/dL (1.6-2.6); Potassium 3.9 mmol/L (3.3-5.1); Sodium 137 mmol/L (135-145); Total Protein 7.4 g/dL (6.5-8.0)
[2023-03-09 18:15] LABS: COVID-19 Test Negative (Negative); IDNOW Serial# 08D9AD1C
[2023-03-09 18:21] LABS: Lipase 880 U/L (8-78)
[2023-03-09 19:11] LABS: Appearance Urine Turbid; Color Urine Yellow; Glucose Urine UA 500 mg/dL (Negative); Leukocyte Esterase Urine Negative (Negative); Nitrite Urine Negative (Negative); Specific Gravity - Urine >= 1.030 (1.005-1.025); Urine Blood Negative (Negative); Urine Ketones Trace mg/dL (Negative); Urine Protein Negative (Neg-Trace)
[2023-03-09 19:17] LABS: Amphetamine Screen Urine Not Detected (Not Detect); Barbiturates, Urine Not Detected (Not Detect); Benzodiazepines Screen Urine Not Detected (Not Detect); Cannabinoid Screen Urine Not Detected (Not Detect); Cocaine Screen Urine POSITIVE (Not Detect); Fentanyl, urine Not Detected (Not Detect); Opiate Screen Urine Not Detected (Not Detect); Phencyclidine Screen Urine Not Detected (Not Detect)
[2023-03-09 21:21] VITALS: BP 177/100; PULSE 76; RESP 20; TEMP 36.9; O2SAT 98
[2023-03-09] MEDS: ondansetron HCL 4 MG/2 ML VIAL IVPUSH (21:35)
[2023-03-09] MEDS: Morphine Sulfate 4 MG/ML CARTRIDGE IVPUSH (21:35)
[2023-03-09] MEDS: 0.9 % Sodium Chloride 1,000 ML 999 ML IV (21:35)
[2023-03-09 22:06] LABS: Triglycerides 214 mg/dL (<150)
[2023-03-10] VITALS (10 sets, daily range): BP systolic 92–142; BP diastolic 57–87; PULSE 58–103; RESP 15–20; TEMP 35.9–36.8; O2SAT 95–98
[2023-03-10] MEDS: HYDROmorphone HCl 2 MG/ML VIAL IVPUSH (01:31)
[2023-03-10] MEDS: 0.9 % Sodium Chloride 1,000 ML 999 ML IV (01:31)
[2023-03-10] MEDS: 0.9 % Sodium Chloride 1,000 ML 150 ML IVCONT ×3 (03:33→19:36)
[2023-03-10] MEDS: Pantoprazole Sodium 40 MG/10 ML VIAL IVPUSH (03:39)
--- NOTE | 2023-03-10 05:04 | P.HPHOSP_ITS ---
History of Present Illness Date of Service: 03/10/23 Attending physician on admission: Josias Hughes Chief Complaint: Abdominal pain. Maico Hall is a 53 years old man with past medical history significant for prior hospitalizations for alcohol-induced pancreatitis, type 2 diabetes mellitus, hypertension, hyperlipidemia mood disorder presents to the emergency department complaining of upper abdominal pain associated with nausea and vomiting. He denies fever, chills and diarrhea. He stated that the last time he drank alcohol was Wednesday. He denied chest pain, shortness on breath, palpitations, cough, dizziness or headache. In the ED, he was found to have hypertension and mild tachycardia. Oxygen saturation is normal on room air and there is no fever. Blood workup was remarkable for elevated lipase, 180 mg. Triglycerides are elevated, 214. There is hyperglycemia 255. LFTs are normal. Abdomen pelvis CT scan showed peripancreatic stranding consistent with pancreatitis (no drainable peripancreatic fluid collections seen) and hepatic steatosis. ED tx: NS 2 L bolus, Zofran 4 mg IV, morphine 4 mg IV, Dilaudid 2 mg IV. Review of Systems 2 Review of Systems: All 12 systems were reviewed and normal except as noted in HPI. [facility] Medical History (Updated 03/10/23 @ 01:44 by Jose A Randall MD) Acromioclavicular joint arthritis Alcohol use disorder Cocaine abuse Alcohol withdrawal Duodenitis Diabetes mellitus Arthritis Alcohol abuse Cocaine abuse Seizures Hypertension Pancreatitis Family History Other CAD (coronary artery disease) Diabetes mellitus Surgical History H/O hernia repair Social History Household Members: None Housing: Apartment Do you presently have visiting nurse or other home services: No Alcohol intake: never Comment: refuses fall risk precautions Patient Tobacco Use Status: Never used Tobacco Second Hand Smoke Exposure: No Substance Use Type: Marijuana Advance Directives: Yes Advance Directives on File: Yes Advance Directives Date on File: 02/27/20 service: No Current occupational status: disabled Meds Allergies Allergy/AdvReac Type Severity Reaction Status Date / Time sildenafil [From Viagra] Allergy Unknown Verified 11/25/22 09:15 Active Medications: Current Medications Heparin Sodium (Porcine) (Heparin Sodium,Porcine 5,000 Unit/Ml Vial) 5,000 unit SUBCUT Q8H [facility] Hydromorphone HCl (Hydromorphone Hcl 1 Mg/Ml Syringe) 0.5 mg IVPUSH Q4H PRN; Protocol PRN Reason: Pain, Severe (Pain Scale 7-10) Sodium Chloride (Ns) 1,000 mls @ 150 mls/hr IVCONT .Q6H40M [facility] Last Admin: 03/10/23 03:33 Dose: 150 mls/hr Pantoprazole Sodium (Pantoprazole Sodium 40 Mg/10 Ml Vial) 40 mg IVPUSH DAILY [facility] Last Admin: 03/10/23 03:39 Dose: 40 mg Sodium Chloride (0.9 % Sodium Chloride Flush 3 Ml Syringe) 3 ml IVFLUSH QSHIFT [facility] Home Medications Medication Instructions Recorded Confirmed Last Taken Type quetiapine 300 mg tablet 300 mg PO BEDTIME 02/27/20 11/25/22 08/04/21 History trazodone 150 mg tablet 150 mg PO BEDTIME 02/27/20 11/25/22 08/04/21 History lisinopril 10 mg tablet 1 tab PO DAILY 11/04/20 11/25/22 06/24/22 History sertraline 100 mg tablet 1 tab PO DAILY 06/23/21 11/25/22 08/05/21 History quetiapine 50 mg tablet 50 mg PO BID PRN anxiety 06/24/22 11/25/22 Unknown History metoprolol succinate 50 mg 50 mg PO DAILY 08/10/22 11/25/22 Unknown History tablet,extended release 24 hr Physical Exam 2 Vital Signs and Narrative: Vital Signs: Last Vital Signs Temp 98.4 F 03/09/23 21:21 Pulse 84 03/10/23 04:48 Resp 15 03/10/23 02:37 BP 96/60 03/10/23 04:48 Pulse Ox 96 03/10/23 02:37 O2 Del Method Room Air 03/10/23 02:37 BMI result Body Mass Index 31.0 Constitutional - Awake and Alert, No apparent distress. Acutely ill. Eyes - PERRLA, EOMI Cardiovascular - S1S2, RRR, No edema Respiratory - Normal lung expansion, Normal respiratory effort, No respiratory distress, CTA bilaterally Gastrointestinal - soft, increased bowel sounds, epigastric tenderness. No rebound or guarding Extremities - no calf tenderness bilaterally, no swelling Musculoskeletal - Normal inspection, normal ROM Skin - Warm/Dry Neurological - Alert & oriented x3. Psychological - Appropriate affect Results Labs 03/09/23 17:52 03/09/23 17:52 Labs: Laboratory Results - last 24 hr 03/09/23 03/09/23 17:52 18:55 MCV 89.8 MCH 31.1 MCHC 34.6 RDW 11.7 Plt Count 148 L D MPV 9.3 L Immature Gran % (Auto) 0.2 Neut % (Auto) 70.6 Lymph % (Auto) 18.3 L Sawyer % (Auto) 9.1 Eos % (Auto) 1.2 Baso % (Auto) 0.6 Lymph # (Auto) 1.5 Sawyer # (Auto) 0.7 Eos # (Auto) 0.1 Baso # (Auto) 0.1 Abs Immat Gran (auto) 0.02 Absolute Neuts (auto) 5.7 Absolute Nucleated RBC 0.000 Nucleated RBC % (auto) 0.0 Anion Gap 15 Estim Creat Clear Calc 99.0 Estimated GFR > 60 Random Glucose 255 H Calcium 9.5 D Magnesium 1.6 Total Bilirubin 0.5 Direct Bilirubin 0.2 AST 30 ALT 30 Alkaline Phosphatase 68 Lactate Dehydrogenase 158 Total Protein 7.4 Albumin 4.4 Triglycerides 214 H Lipase 880 H Urine Color Yellow Urine Appearance Turbid Urine pH 8.0 Ur Specific [place] >= 1.030 H Urine Protein Negative Urine Glucose (UA) 500 H Urine Ketones Trace Urine Blood Negative Urine Nitrite Negative Ur Leukocyte Esterase Negative Urine Opiates Screen Not Detected Urine Fentanyl Screen Not Detected Ur Barbiturates Screen Not Detected Ur Phencyclidine Scrn Not Detected Ur Amphetamines Screen Not Detected U Benzodiazepines Scrn Not Detected Urine Cocaine Screen POSITIVE H U Marijuana (THC) Screen Not Detected Ethyl Alcohol < 10 COVID-19 (BUD) Negative COVID-19 Clin Com See Note Imaging Radiologist's Impressions: Impressions Abdomen/Pelvis CT 03/09/23 22:35 IMPRESSION: 1. Peripancreatic stranding consistent with pancreatitis. No drainable peripancreatic fluid collections are seen. 2. Incidental note made of hepatic steatosis, periumbilical hernia containing only fat and prior lower abdominal wall hernia repair. Fleischner guidelines were followed. Assessment and Plan (1) Pancreatitis: Status: Acute (2) Alcohol abuse: Status: Acute Plan Maico Hall is a 53 years old man admitted with: * Acute pancreatitis secondary to alcohol abuse. Admit to hospitalist service. Keep NPO. Continue IV fluids. Pain dilaudid IV as needed. Antiemetic therapy as needed. Start therapy with Protonix 40 mg IV daily. Continue to monitor lipase. Patient was advised to afternoon from alcohol ingestion. * Type 2 diabetes mellitus. Blood glucose monitoring every 6 hours while NPO. Insulin sliding scale. * Alcohol abuse. Alcohol abstinence. CIWA protocol. Thiamine IV. Multivitamins and folic acid when able. * Essential hypertension. Hydralazine p.r.n. restart home meds when able. * Mood disorder. Restart Seroquel, sertraline and trazodone when able. * DVT prophylaxis: Heparin subcut. Code status: Full. Patient will need hospitalization for at leats two midnights for acute pancreatitis treatment with IV fluids and pain control. Quality Stroke Does the patient have a stroke diagnosis?: No VTE Prior VTE?: No VTE Risk Level:: Medical - moderate - high VTE Device Contraindication: Treatment Not Indicated VTE Drug Contraindication: N/A - Med Ordered
[2023-03-10 05:39] LABS: MANUAL DIFF FLAG NO
[2023-03-10 05:41] LABS: Basophils Percent Auto 0.4 % (0-2); Eosinophils Absolute Auto 0.2 X10*3/uL (0.0-0.4); Eosinophils Percent Auto 2.2 % (0-4); Hematocrit 37.1 % (42.0-52.0); Hemoglobin 12.7 g/dl (14.0-18.0); Imm Gran Abs Auto 0.06 X10*3/uL (0.00-0.03); Imm Gran Pct Auto 0.8 % (0.0-0.4); Lymphocytes Absolute Auto 1.6 X10*3/uL (1.2-4.9); Mean Corpuscular HGB Conc 34.2 g/dl (31.0-36.0); Mean Corpuscular Hemoglobin 31.1 pg (27.0-33.0); Mean Corpuscular Volume 90.9 fL (80.0-98.0); Mean Platelet Volume 9.6 fL (9.4-12.4); Monocytes Absolute Auto 0.8 X10*3/uL (0.1-1.2); Monocytes Percent Auto 10.4 % (2-11); Neutrophils Absolute Auto 4.7 x10*3/uL (2.0-8.3); Neutrophils Percent Auto 64.2 % (45-73); Platelet Count 132 X10*3/uL (160-400); Red Blood Count 4.08 X10*6/uL (4.60-5.80); Red Cell Distribution Width 11.8 % (11.0-16.0); White Blood Count 7.2 X10*3/uL (4.8-10.8)
[2023-03-10 05:50] LABS: Glucose, Whole Blood 208 mg/dL (60-115)
[2023-03-10] MEDS: HYDROmorphone HCl 1 MG/ML SYRINGE 0.5 MG IVPUSH (05:55)
[2023-03-10] MEDS: Insulin Lispro 100 UNIT/ML 3 ML VIAL SUBCUT (05:56)
[2023-03-10 05:59] LABS: Alanine Aminotransferase 23 U/L (0-40); Albumin Level 3.7 g/dL (3.5-5.0); Alkaline Phosphatase 57 U/L (39-117); Anion Gap 11 (12-20); Aspartate Amino Transferase 20 U/L (5-37); Bilirubin Total 0.5 mg/dL (0.0-1.0); Blood Urea Nitrogen 10 mg/dL (9-16); Calcium 8.3 mg/dL (8.4-10.2); Carbon Dioxide 23 mmol/L (22-29); Chloride 106 mmol/L (96-108); Creatinine Clr Calc Pharmacy 117.3; Estimated Glomerular Filt Rate > 60; Glucose Random 199 mg/dL (60-115); Potassium 3.7 mmol/L (3.3-5.1); Sodium 136 mmol/L (135-145); Total Protein 6.1 g/dL (6.5-8.0)
[2023-03-10] MEDS: 0.9 % Sodium Chloride Flush 3 ML SYRINGE IVFLUSH (07:59)
--- NOTE | 2023-03-10 08:02 | PC.NURSE ---
this RN resumed care of pt at this time. vss and up to date. pt presenting in tripod position - c/o 11/24 abd pain - stating that he is unable to get comfortably at this time. pt tearful/distressed. not able to administer pain medication per prn order at this time. admitting provider notified and aware. no sob/wob noted. respirations even and unlabored. pt continues to wait for bed assignment at this time. plan of care ongoing.call lal placed within reach.
[2023-03-10] MEDS: HYDROmorphone HCl 1 MG/ML SYRINGE IVPUSH ×4 (08:30→20:24)
--- NOTE | 2023-03-10 08:32 | PC.NURSE ---
medication administered per provider order. will reassess.
--- NOTE | 2023-03-10 09:13 | PHA.MEDREC ---
Pharmacy Consult ? Medication Reconciliation Pharmacy has completed the medication reconciliation. Patient poor historian and falling asleep, used claim history. Able to confirm with pt that he takes 25 units of his Lantus. He also said he takes his meloxicam BID, and a B12 supplement. Pt was unclear about fenofibrate and lisinopril, but has not filled those prescriptions since last fall.
[2023-03-10] MEDS: Thiamine HCL 100 MG in 0.9 % Sodium Chloride 100 ML 202 MG IV (09:20)
[2023-03-10] MEDS: Heparin Sodium,Porcine 5,000 UNIT/ML VIAL 5000 UNIT SUBCUT ×2 (09:21→17:16)
--- NOTE | 2023-03-10 09:26 | PC.NURSE ---
medication administered per provider order. pt verbalizing pain level described to a 6/ post medication administration. resting comfortably in no apparent distress. call lal placed within reach.
[2023-03-10 10:10] LABS: Glucose, Whole Blood 105 mg/dL (60-115)
--- NOTE | 2023-03-10 10:19 | MHC.CM.PN ---
IMM 03/10. PT LIVES AT HOME ALONE, SELF-CARE, OCCASIONALLY USES A CANE OR WALKER WHEN HIS ARTHRITIS FLARES UP. PT STATES HE HAS A DIGITAL MARKETING EXECUTIVE THAT COME SON WEDNESDAY TO HELP HIM DO SHOPPING BUT HES THINKING OF FIRING HER. PT WILL CALL A FRIEND TO TRANSPORT HIM HOME AT D/C. NEW HCP COMPLETED WITH PT AND NOW ON FILE, PREVIOUS HCP ON FILE HAS SINCE . PCP: DR. CRISTIANA RAHMAN
--- NOTE | 2023-03-10 11:05 | PC.NURSE ---
IV fluids administered per provider order. pt still refusing lorazepam administration at this time. pt states that he does not like the way that the medication makes him feel. continues to rest in no apparent distress at this time. respirations remain even and unlabored. call lal placed within reach.
--- NOTE | 2023-03-10 11:17 | PM.EVENT ---
Documented by User: Kristel Mansfield 03/10/23 11:36 Event Note Date of Service: 03/10/23 Event Note: Patient admitted due to acute pancreatitis in setting of AUD. Pain has improved with hydromorphone and IVF and he is resting comfortably. Currently NPO, will plan to advance diet tomorrow as tolerated. On examination Patient is awake, alert, and no acute distress. Epigrastic tenderness with palpation, no RLQ or LLQ pain. Extremities without edema. Maico Hall is a 53 years old man admitted with: Acute pancreatitis secondary to alcohol abuse: - Keep NPO. Continue IVF/IV dilaudid/IV Protonix and antiemetic therapy as needed. Monitor lipase. Recommended patient avoid alcohol use; recovery services offered and patient declined. Insulin dependent Type 2 diabetes mellitus: - Blood glucose monitoring every 6 hours while NPO; sliding scale insulin Alcohol use disorder: - Continue CIWA, thiamine IV. Folic acid and multivitamins when no longer NPO Essential hypertension: - Hydralazine PRN, plan restart home metoprolol when no longer NPO. Mood disorder: - Restart Seroquel, sertraline and trazodone when able. DVT prophylaxis: - Heparin Code status: District Claims Manager Spent With Patient Time: Total time managing care of this patient today ____ minutes. Documented by User: Reji Lala MD 03/11/23 09:04 Event Note Date of Service: 03/11/23 Event Note: Patient admitted due to acute pancreatitis in setting of AUD. Pain has improved with hydromorphone and IVF and he is resting comfortably. Currently NPO, will plan to advance diet tomorrow as tolerated. On examination Patient is awake, alert, and no acute distress. Epigrastic tenderness with palpation, no RLQ or LLQ pain. Extremities without edema. Maico Hall is a 53 years old man admitted with: Acute pancreatitis secondary to alcohol abuse: - Keep NPO. Continue IVF/IV dilaudid/IV Protonix and antiemetic therapy as needed. Monitor lipase. Recommended patient avoid alcohol use; recovery services offered and patient declined. Insulin dependent Type 2 diabetes mellitus: - Blood glucose monitoring every 6 hours while NPO; sliding scale insulin Alcohol use disorder: - Continue CIWA, thiamine IV. Folic acid and multivitamins Essential hypertension: - Hydralazine PRN, plan restart home metoprolol. Mood disorder: - Restart Seroquel, sertraline and trazodone . DVT prophylaxis: - Heparin Code status: Full
--- NOTE | 2023-03-10 14:13 | PC.NURSE ---
PT C/O 10 PAIN, MED ORDERED. PT REASSURED, CALL BEST IN PLACE
[2023-03-10 14:49] LABS: Glucose, Whole Blood 140 mg/dL (60-115)
--- NOTE | 2023-03-10 14:56 | PC.NURSE ---
PT FEELS MUCH BETTER, MED EFFECTIVE
--- NOTE | 2023-03-10 15:24 | PC.NURSE ---
vss and up to date at this time. pt still verbalizing /10 abd pain despite medication administration. no n/v/d noted. updated CIWA = 0. respirations remain even and unlabored. pt still waiting bed admission at this time. call lal placed within reach.
--- NOTE | 2023-03-10 16:16 | PC.NURSE ---
admission worksheet completed. transport notified at this time.
--- NOTE | 2023-03-10 17:48 | PC.NURSE ---
Patient has history of alcohol use and has CIWA scale in place. Current rating is 0. Seizure pads placed prior to admission. Upon arrival and introduction patient denied being a seizure risk and refused the pads. Education provided about interventions and verbalized understanding. Seizure pads removed from room per patient's request.
[2023-03-10 20:24] LABS: Glucose, Whole Blood 118 mg/dL (60-115)
[2023-03-11] MEDS: 0.9 % Sodium Chloride 1,000 ML 150 ML IVCONT ×2 (01:06→08:28)
[2023-03-11] MEDS: HYDROmorphone HCl 1 MG/ML SYRINGE IVPUSH (01:06)
[2023-03-11] MEDS: Heparin Sodium,Porcine 5,000 UNIT/ML VIAL 5000 UNIT SUBCUT ×3 (01:09→17:15)
[2023-03-11 01:19] LABS: Glucose, Whole Blood 128 mg/dL (60-115)
[2023-03-11 03:41] VITALS: BP 131/69; PULSE 60; RESP 18; TEMP 36.4; O2SAT 97
[2023-03-11 05:53] LABS: Lipase 74 U/L (8-78)
[2023-03-11] MEDS: LORazepam 1 MG TABLET PO ×2 (06:24→13:49)
[2023-03-11] MEDS: Acetaminophen 325 MG TABLET 975 MG PO (06:25)
[2023-03-11 07:14] VITALS: BP 176/79; PULSE 68; RESP 16; TEMP 36.1; O2SAT 98
[2023-03-11 08:04] LABS: Glucose, Whole Blood 143 mg/dL (60-115)
[2023-03-11] MEDS: Pantoprazole Sodium 40 MG/10 ML VIAL IVPUSH (08:34)
[2023-03-11] MEDS: Thiamine HCL 100 MG in 0.9 % Sodium Chloride 100 ML 202 MG IV (08:36)
[2023-03-11] MEDS: Metoprolol Succinate ER 50 MG TAB.ER.24H PO (09:11)
[2023-03-11 12:01] LABS: Glucose, Whole Blood 196 mg/dL (60-115)
--- NOTE | 2023-03-11 13:31 | P.PNIM_ITS ---
Subjective Subjective Date of Service: 03/11/23 Interval History: Feeling better this morning abdominal pain resolved, no nausea, no vomiting, denies alcohol withdrawal symptoms, no fevers, no chills, no lightheadedness, no dizziness, no acute issues overnight. Review of Systems All other system reviewed and negative. Physical Exam 2 Vital Signs: Vital Signs: Last Vital Signs Temp 96.9 F 03/11/23 07:14 Pulse 68 03/11/23 07:14 Resp 16 03/11/23 07:14 BP 176/79 H 03/11/23 07:14 Pulse Ox 98 03/11/23 07:14 O2 Del Method Room Air 03/11/23 07:14 BMI result Body Mass Index 31.0 Objective Data Active Medications Acetaminophen (Acetaminophen 325 Mg Tablet) 975 mg PO Q6H PRN PRN Reason: Headache Last Admin: 03/11/23 06:25 Dose: 975 mg Documented By: NEELA Dextrose (Dextrose 50 % 25 Gm/50 Ml Syringe) 25 gm IVPUSH Q15M PRN; Protocol PRN Reason: per Hypoglycemia Standing Ord. Glucose (Glucose Gel 15 Gm Gel..Gram.) 15 gm PO Q15M PRN; Protocol PRN Reason: per Hypoglycemia Standing Ord. Heparin Sodium (Porcine) (Heparin Sodium,Porcine 5,000 Unit/Ml Vial) 5,000 unit SUBCUT Q8H [facility] Last Admin: 03/11/23 08:39 Dose: 5,000 unit Documented By: CARMINA Hydralazine HCl (Hydralazine Hcl 20 Mg/Ml Vial) 5 mg IVPUSH Q4H PRN; Protocol PRN Reason: SBP > 160 Thiamine HCl 100 mg/ Sodium (Chloride) 101 mls @ 202 mls/hr IV DAILY [facility] Last Infusion: 03/11/23 09:07 Dose: Infused Documented By: CARMINA Insulin Human Lispro (Insulin Lispro 100 Unit/Ml 3 Ml Vial) 0 unit SUBCUT Q6H [facility]; Protocol Last Admin: 03/11/23 06:01 Dose: Not Given Documented By: NEELA Non-Admin Reason: No Insulin Coverage Lorazepam (Lorazepam 1 Mg Tablet) 1 mg PO Q4H PRN PRN Reason: Breakthrough alcohol withdrawa Stop: 03/14/23 05:10 Lorazepam (Lorazepam 1 Mg Tablet) 1 mg PO Q6H [facility]; Taper Stop: 03/14/23 07:14 Last Admin: 03/11/23 06:24 Dose: 1 mg Documented By: NEELA Metoprolol Succinate (Metoprolol Succinate Er 50 Mg Tab.Er.24h) 50 mg PO DAILY [facility]; Protocol Last Admin: 03/11/23 09:11 Dose: 50 mg Documented By: CARMINA Pantoprazole Sodium (Pantoprazole Sodium 40 Mg/10 Ml Vial) 40 mg IVPUSH DAILY [facility] Last Admin: 03/11/23 08:34 Dose: 40 mg Documented By: CARMINA Quetiapine Fumarate (Quetiapine Fumarate 300 Mg Tablet) 300 mg PO BEDTIME [facility] Sertraline HCl (Sertraline Hcl 100 Mg Tablet) 100 mg PO DAILY [facility] Sodium Chloride (0.9 % Sodium Chloride Flush 3 Ml Syringe) 3 ml IVFLUSH QSHIFT [facility] Last Admin: 03/11/23 08:39 Dose: Not Given Documented By: CARMINA Non-Admin Reason: IV Running Trazodone HCl (Trazodone Hcl 50 Mg Tablet) 150 mg PO BEDTIME [facility] Labs 03/10/23 04:53 03/10/23 04:53 Labs: Laboratory Results - last 24 hr 03/10/23 03/10/23 03/11/23 14:45 20:21 01:16 Hold Purple Top POC Glucose 140 H 118 H 128 H Lipase 03/11/23 03/11/23 03/11/23 05:28 07:57 11:57 Hold Purple Top SEE NOTE POC Glucose 143 H 196 H Lipase 74 Assessment and Plan (1) Pancreatitis: Status: Acute Plan Acute pancreatitis secondary to alcohol abuse: Abdominal pain resolved, lipase normalized will gradually advance diet Minimize narcotics Monitor BMP- strongly recommend to abstain from alcohol. Insulin dependent Type 2 diabetes mellitus:-elevated blood sugars, place on diabetic diet, continue insulin sliding scale and monitor point of care. Thank you Alcohol use disorder: - Continue CIWA, folic acid and thiamine, care team consult, wean Ativan. Essential hypertension: Resume metoprolol,follow bp Mood disorder: Resume home medications Seroquel, sertraline and trazodone DVT prophylaxis: - Heparin subq Patient need continued inpatient hospitalization for management of acute pancreatitis on IV fluids analgesics diet being advanced. Quality Stroke Does the patient have a stroke diagnosis?: No VTE Prior VTE?: No VTE Risk Level:: Medical - moderate - high VTE Device Contraindication: Treatment Not Indicated VTE Drug Contraindication: N/A - Med Ordered
[2023-03-11] MEDS: Insulin Lispro 100 UNIT/ML 3 ML VIAL SUBCUT ×3 (13:49→21:37)
--- NOTE | 2023-03-11 14:53 | MHC.RECOVRN ---
Met with pt in 386 after consult placed to Addiction Medicine for alcohol use. Pt had presented to the ED for abdominal pain that radiates to back. Upon evaluation, pt admitted for alcohol use and pancreatitis. Pt laying in bed, awake, alert, easily engages in conversation. Pt reports alcohol use, 1-2 24 ounce beers daily, last drink on Wednesday. Pt not on phenobarb protocol during admission. Utilizing Ativan for withdrawal. Highest CIWA score of 8. Pt is not concerned about his alcohol use. Pt reports he lives alone and feels depression at times, does have a therapist who he sees regularly. Pt reports he is currently in the process of moving from [place] to [place] where his mom lives. Pt feels he has more support in [place]. In regards to alcohol use, pt was receptive to resources, provided with written recovery resources. Pt denies other questions or concerns.
--- NOTE | 2023-03-11 14:54 | MHC.CM.PN ---
Per MD patient will discharge tomorrow. He has been seen by the Recovery nurse. DP home self care. Patient will arrange for a ride home at discharge.
[2023-03-11 15:05] VITALS: BP 139/68; PULSE 79; RESP 17; TEMP 36.6; O2SAT 98
[2023-03-11] MEDS: Folic Acid 1 MG TABLET PO (15:16)
[2023-03-11] MEDS: Thiamine HCL 100 MG TABLET PO (15:16)
[2023-03-11 17:05] LABS: Glucose, Whole Blood 185 mg/dL (60-115)
[2023-03-11] MEDS: 0.9 % Sodium Chloride Flush 3 ML SYRINGE IVFLUSH ×2 (17:20→21:33)
[2023-03-11 19:06] VITALS: BP 151/78; PULSE 72; RESP 18; TEMP 36.6; O2SAT 98
[2023-03-11 19:48] LABS: Glucose, Whole Blood 226 mg/dL (60-115)
[2023-03-11] MEDS: QUEtiapine Fumarate 300 MG TABLET PO (21:33)
[2023-03-11] MEDS: traZODone HCL 50 MG TABLET 150 MG PO (21:33)
[2023-03-12] MEDS: Heparin Sodium,Porcine 5,000 UNIT/ML VIAL 5000 UNIT SUBCUT ×2 (01:29→09:02)
[2023-03-12 01:36] LABS: Glucose, Whole Blood 240 mg/dL (60-115)
[2023-03-12 03:29] VITALS: BP 104/59; PULSE 62; RESP 18; TEMP 36.8; O2SAT 94
[2023-03-12] MEDS: Omeprazole 40 MG CAPSULE.DR PO (05:48)
[2023-03-12 07:42] VITALS: BP 110/65; PULSE 76; RESP 17; TEMP 36.7; O2SAT 97
[2023-03-12 07:48] LABS: Glucose, Whole Blood 226 mg/dL (60-115)
[2023-03-12] MEDS: Thiamine HCL 100 MG TABLET PO (09:01)
[2023-03-12] MEDS: Sertraline HCL 100 MG TABLET PO (09:01)
[2023-03-12] MEDS: Metoprolol Succinate ER 50 MG TAB.ER.24H PO (09:01)
[2023-03-12] MEDS: Folic Acid 1 MG TABLET PO (09:01)
[2023-03-12] MEDS: Insulin Lispro 100 UNIT/ML 3 ML VIAL SUBCUT ×2 (09:03→11:43)
[2023-03-12] MEDS: 0.9 % Sodium Chloride Flush 3 ML SYRINGE IVFLUSH (09:05)
[2023-03-12 09:42] LABS: Hematocrit 38.6 % (42.0-52.0); Hemoglobin 13.5 g/dl (14.0-18.0); Mean Corpuscular Hemoglobin 31.3 pg (27.0-33.0); Mean Corpuscular Volume 89.6 fL (80.0-98.0); Mean Platelet Volume 10.1 fL (9.4-12.4); Platelet Count 162 X10*3/uL (160-400); Red Blood Count 4.31 X10*6/uL (4.60-5.80); Red Cell Distribution Width 11.9 % (11.0-16.0); White Blood Count 6.4 X10*3/uL (4.8-10.8)
[2023-03-12 10:09] LABS: Anion Gap 15 (12-20); Blood Urea Nitrogen 8 mg/dL (9-16); Calcium 9.7 mg/dL (8.4-10.2); Carbon Dioxide 23 mmol/L (22-29); Chloride 103 mmol/L (96-108); Creatinine Clr Calc Pharmacy 81.8; Estimated Glomerular Filt Rate > 60; Glucose Random 316 mg/dL (60-115); Potassium 3.7 mmol/L (3.3-5.1); Sodium 137 mmol/L (135-145)
--- NOTE | 2023-03-12 11:13 | MHC.CM.PN ---
IMM 03/10/23 Male DX Pancreatitis is discharged to home today. His INFECTIOUS WASTE TECHNICIAN services will resume. He has arranged for a friend to provide transportation home.
[2023-03-12 11:17] LABS: Glucose, Whole Blood 187 mg/dL (60-115)
--- NOTE | 2023-03-12 11:27 | P.DS_ITS ---
DS: Providers Provider Date of Service: 03/12/23 Date of admission: 03/10/23 02:57 Primary care physician: Ruma Gilbert MD Consults: 03/11/23 10:49 Addiction Medicine Routine Consulting Provider: Addiction Covering Reason for consultation: etoh Has provider been notified: No DS: Diagnosis Discharge Diagnosis (1) Pancreatitis: Status: Acute DS: Summary Hospital Course Hospital Course: History of presenting illness: Date of Service: 03/10/23 Attending physician on admission: Josias Hughes Chief Complaint: Abdominal pain. Maico Hall is a 53 years old man with past medical history significant for prior hospitalizations for alcohol-induced pancreatitis, type 2 diabetes mellitus, hypertension, hyperlipidemia mood disorder presents to the emergency department complaining of upper abdominal pain associated with nausea and vomiting. He denies fever, chills and diarrhea. He stated that the last time he drank alcohol was Wednesday. He denied chest pain, shortness on breath, palpitations, cough, dizziness or headache. In the ED, he was found to have hypertension and mild tachycardia. Oxygen saturation is normal on room air and there is no fever. Blood workup was remarkable for elevated lipase, 180 mg. Triglycerides are elevated, 214. There is hyperglycemia 255. LFTs are normal. Abdomen pelvis CT scan showed peripancreatic stranding consistent with pancreatitis (no drainable peripancreatic fluid collections seen) and hepatic steatosis. ED tx: NS 2 L bolus, Zofran 4 mg IV, morphine 4 mg IV, Dilaudid 2 mg IV. Hospital course Admitted to medical floor with a diagnosis of Acute pancreatitis secondary to alcohol abuse, treated with IV fluids, analgesics, abdominal pain improved lipase normalized diet was gradually advanced patient currently is tolerating diet with no recurrent abdominal pain no nausea no vomiting electrolytes renal function remained stable therefore being discharged home with strong recommendation to abstain from alcohol. Insulin dependent Type 2 diabetes mellitus:-recommend to follow diabetic diet, Lantus and oral hypoglycemics. Alcohol use disorder and withdrawal patient was maintained on CIWA protocol, f olic acid and thiamine was seen by care team outpatient referrals given patient was motivated to abstain from alcohol. Essential hypertension: Continue home medication noted to have stable blood pre ssures. Mood disorder: Continue home medications Seroquel, sertraline and trazodone. Time Attestation Discharge coordination time: Greater than 30 minutes Quality: Safe Use of Opioids Does Pt have an Active Cancer Diagnosis on the Problem List?: No Quality: Stroke Does the patient have a stroke diagnosis?: No Physical Exam Vital Signs: Vital Signs: Last Vital Signs Temp 98.0 F 03/12/23 07:42 Pulse 76 03/12/23 07:42 Resp 17 03/12/23 07:42 BP 110/65 03/12/23 07:42 Pulse Ox 97 03/12/23 07:42 O2 Del Method Room Air 03/12/23 07:42 BMI result Body Mass Index 31.0 Const: Other: General awake alert x3, in no acute distress. Neck supple no JVD. CVS regular rate rhythm, Respiratory lungs clear to auscultation, no respiratory distress, no wheeze, no rhonchi. Gastrointestinal abdomen soft, non tender, bowel sounds audible, no guarding , no rigidity. Extremities no edema. Neuro nonfocal Skin no rash Psych appropriate affect DS: Data Data Completed and Pending Completed studies during hospitalization [Text1]: Procedures Detoxification Services for Substance Abuse Treatment (01/30/22) Labs on day of discharge: Laboratory Results - last 24 hr 03/11/23 03/11/23 03/11/23 11:57 17:01 19:45 WBC RBC Hgb Hct MCV MCH MCHC RDW Plt Count MPV Absolute Nucleated RBC Nucleated RBC % (auto) Sodium Potassium Chloride Carbon Dioxide Anion Gap BUN Creatinine Estim Creat Clear Calc Estimated GFR POC Glucose 196 H 185 H 226 H Random Glucose Calcium 03/12/23 03/12/23 03/12/23 01:31 07:43 09:31 WBC 6.4 RBC 4.31 L Hgb 13.5 L Hct 38.6 L MCV 89.6 MCH 31.3 MCHC 35.0 RDW 11.9 Plt Count 162 MPV 10.1 Absolute Nucleated RBC 0.000 Nucleated RBC % (auto) 0.0 Sodium 137 Potassium 3.7 Chloride 103 Carbon Dioxide 23 Anion Gap 15 BUN 8 L Creatinine 1.09 Estim Creat Clear Calc 81.8 Estimated GFR > 60 POC Glucose 240 H 226 H Random Glucose 316 H Calcium 9.7 D 03/12/23 11:14 WBC RBC Hgb Hct MCV MCH MCHC RDW Plt Count MPV Absolute Nucleated RBC Nucleated RBC % (auto) Sodium Potassium Chloride Carbon Dioxide Anion Gap BUN Creatinine Estim Creat Clear Calc Estimated GFR POC Glucose 187 H Random Glucose Calcium Discharge Plan Discharge Anticipated Discharge Date/Time: 03/12/23 11:24 Patient Disposition: Home, Self-Care Discharge Diagnosis: Acute alcoholic pancreatitis Referrals: Ruma Gilbert MD [Primary Care Provider] - 1 Week Discharge Medications: Continued quetiapine 300 mg tablet 300 mg PO BEDTIME trazodone 150 mg tablet 150 mg PO BEDTIME sertraline 100 mg tablet 1 tab PO DAILY insulin glargine [Lantus Solostar U-100 Insulin] 100 unit/mL (3 mL) insulin pen 25 unit subcut DAILY Jardiance 25 mg tablet 25 mg PO DAILY cyanocobalamin (vitamin B-12) 1,000 mcg Tablet 1,000 mcg PO DAILY famotidine 20 mg tablet 20 mg PO BID Qty: 60 0RF metoprolol succinate 50 mg tablet extended release 24 hr 50 mg PO DAILY Discontinued meloxicam 15 mg tablet 15 mg PO BID Discharge Orders: Discharge Order (Routine); Ordered 03/12/23 Ordered By: Reji Lala Diet: Diabetic diet Activity on Discharge: As tolerated Stand Alone Forms: Patient Portal Discharge page Care Plan Goals: Acute alcoholic pancreatitis resolved strongly advised to abstain from alcohol Health Concerns: Diabetes mellitus follow diabetic diet and continue medication Use meloxicam 15 mg as needed daily for pain do not take daily. Plan of Treatment: Outpatient follow-up with primary care physician call appointment Assessment: As above
== END 2023-03-12 12:22 | disposition home or self-care (01) | DRG 440 ==
LOC: HO.ED 03-10 01:44 → HO.EDOVER 03-10 03:02 → HO.S3 03-10 15:30
PROVIDERS: Physician Assistant; Admitting Provider Internal Medicine; Emergency Provider Internal Medicine; PCP Internal Medicine; Visit Provider Hospitalist
DX: K85.20 Alcohol induced acute pancreatitis without necrosis or infection (principal); F10.10 Alcohol abuse, uncomplicated; E11.9 Type 2 diabetes mellitus without complications; I10 Essential (primary) hypertension; F39 Unspecified mood [affective] disorder; Z20.822 Contact with and (suspected) exposure to COVID-19; Z79.4 Long term (current) use of insulin; Z79.899 Other long term (current) drug therapy
CPT/HCPCS: 36415; 74176; 80048; 80053; 80076; 80307; 81003; 82947; 83615; 83690; 83735; 84478; 85025; 85027; 87635; 93005; 99221; 99285; C9113; J1170; J1644; J2270; J2405; J3411

== ENCOUNTER → 2023-03-09 16:31 | Outpatient (BNV) | payer OTHER, SELFPAY | PROVIDERS: Admitting Provider Internal Medicine; Emergency Provider Internal Medicine; PCP Internal Medicine; Visit Provider Internal Medicine Cardiovascular Disease | DX: K85.90 Acute pancreatitis without necrosis or infection, unspecified (principal) | CPT/HCPCS: 93010 ==

== ENCOUNTER → 2023-03-10 02:57 | Outpatient (BNV) | payer OTHER, SELFPAY | PROVIDERS: Admitting Provider Internal Medicine; Emergency Provider Internal Medicine; PCP Internal Medicine; Visit Provider Internal Medicine | DX: K85.20 Alcohol induced acute pancreatitis without necrosis or infection (principal); F10.10 Alcohol abuse, uncomplicated; E11.8 Type 2 diabetes mellitus with unspecified complications; I10 Essential (primary) hypertension | CPT/HCPCS: 99223; 99233; 99239; 99499 ==

== ENCOUNTER 2023-05-21 10:28 | Outpatient (REF) | payer OTHER, SELFPAY ==
--- NOTE | ~2023-05-21 | XR_ITS ---
EXAMINATION: XR PELVIS CLINICAL INFORMATION: Pain COMPARISON: Prior x-rays 05/14/2022 TECHNIQUE: AP view of the pelvis. FINDINGS: Right total hip prosthesis, with satisfactory location of the arthroplasty components. No acute periprosthetic fractures. Lucency in the greater trochanter, similar to previous, probably reflecting stress shielding. No findings otherwise to suggest hardware failure. Chronic heterotopic ossifications/loose bodies in the lateral joint space, similar to previous.. Mild left hip arthritis. No acute fracture or dislocation of the left hip.. SI joints are intact. Surgical coils projected over the pelvis. Vascular calcification present.. XR/XR pelvis 1-2V IMPRESSION: Status post right total hip arthroplasty. No findings to suggest hardware complication. Mild left hip arthritis. Additional findings as above...
== END 2023-05-21 10:29 | disposition home or self-care (01) ==
LOC: HO.HOSX 10:28
PROVIDERS: PCP Internal Medicine; Visit Provider Orthopaedic Surgery
DX: M16.12 Unilateral primary osteoarthritis, left hip (principal); Z96.641 Presence of right artificial hip joint
CPT/HCPCS: 72170; 99212

== ENCOUNTER 2023-05-21 10:28 | Outpatient (AMB) | payer OTHER, SELFPAY ==
--- NOTE | 2023-05-21 10:31 | MHC.OFFVIS ---
Intake Vital Signs 05/21/23 10:57 Height 5 ft 8 in Weight 193 lb BMI 29.3 Intake Visit Reasons: OV-LT hip Bursitis-last inj. 12/11/22 Intake Note: Maico is a 52 year old male who presents today for a follow up of his left hip bursitis. Last injection administered on 12/11/22. States no relief with last injection and pain has worsen. 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 His pain radiates down his leg to his ankle. Finds some relief with exercises at the gym and sitting at sauna. Allergies sildenafil [From Viagra] Allergy (Verified 05/21/23 10:57) Unknown HPI OV-LT hip Bursitis-last inj. 12/11/22 HPI Details Maico is a 52 year old male who presents today for a follow up of his left hip pain. He had a right AGNES and this feels like the same thing as then. Last injection (GT bursa) administered on 12/11/22.was not helpful and his pain has worsened and includes groin pain and stiffness. He cannot walk comfortably and all his daily activities are difficult. 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 His pain radiates down his leg. Finds some relief with sauna. 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.) Alcohol intake: never Comment: refuses fall risk precautions Patient Tobacco Use Status: Never used Tobacco Second Hand Smoke Exposure: No Substance Use Type: Marijuana Advance Directives Date on File: 02/27/20 service: No Current occupational status: disabled Physical Exam Vital Signs: BMI result Body Mass Index 29.3 Const General: cooperative, healthy appearing, no acute distress and well groomed Orientation/consciousness: oriented to person and oriented to place HEENT Head: Yes normal to inspection, Yes normocephalic and Yes atraumatic Eyes General: appearance normal, both eyes and all related structures Alignment and Position: alignment normal Conjunctivae: conjunctivae normal EOM: EOMs intact bilaterally Neck Neck: Yes normal visual inspection and Yes trachea midline Resp Other: No rerpiratory distress Effort & Inspection: normal respiratory effort and able to speak in complete sentences Cardio Other: Palpable radial pulse with no appreciable rythmic abnormalities GI Other: No abdominal distension Back/Spine/Pelvis Cervical Spine: normal cervical lordosis and cervical ROM normal Skin General skin exam: no rashes or lesions noted Neuro General: oriented to person, oriented to place and gait normal Extrem Other: + Trendelenburg gait. There is a markedly + Steinmen's and Stinchfield. Results Reviewed Results Reviewed: I personally reviewed relevant radiographs. Right AGNES in expected post operative position with no hardware complications or evidence of loosening Left mild moderate OA with periacetabular osteophytes suggestive of cam impingement Assessment & Plan Assessment & Plan (1) Osteoarthritis of left hip: Code(s): M16.12 - Unilateral primary osteoarthritis, left hip Plan: This is a 53 yo M who is having worsening left hip and groin pain. He feels disabled . He has been working on his health and etoh consumption and feels great except for his hip. This is frustrating for him. On exam he definitly has symptoms of hip arthritis. He wants to pursue AGNES as he did very well after his right. I recommend MRI to further assess as his radiographs are moderate at worst. Orders: Orders XR pelvis 1-2V Today M25.559 - Pain in unspecified hip MR hip LT wo con Today M16.12 - Unilateral primary osteoarthritis, left hip Coding Level of Care Code Est Pt Level 4 (85940) Diagnoses Osteoarthritis of left hip M16.12
[2023-05-21 10:57] VITALS: BMI 29.3
== END 2023-05-21 12:07 | disposition home or self-care (01) ==
PROVIDERS: PCP Internal Medicine; Visit Provider Orthopaedic Surgery
DX: M16.12 Unilateral primary osteoarthritis, left hip (principal)
CPT/HCPCS: 99213

== ENCOUNTER 2023-07-06 10:02 | Outpatient (REF) | payer OTHER, SELFPAY ==
--- NOTE | ~2023-07-06 | MR_ITS ---
EXAMINATION: MR HIP WITHOUT CONTRAST, LEFT CLINICAL INFORMATION: Left hip pain and numbness. COMPARISON: Most recent pelvic radiographs dated 05/21/[address] abdomen/pelvis dated 03/09/2023. TECHNIQUE: MRI of the left hip was obtained using routine sequences on a high-field magnet. FINDINGS: ACETABULAR LABRUM: Diffuse attenuation and heterogeneity throughout the anterosuperior labrum, consistent with complex degenerative tearing. ARTICULAR CARTILAGE/BONE: Full-thickness articular cartilage loss at the anterosuperior joint space with underlying subchondral cystic change and marrow edema. Marginal osteophytes. No stress reaction, fracture, or avascular necrosis. No concerning lytic or blastic osseous lesion. Right hip arthroplasty with associated artifact. No evidence of hardware complication. Degenerative disc disease and facet arthropathy within the lower lumbar spine. MUSCLES/TENDONS: Intact. JOINT FLUID/BURSA: Small left hip joint effusion with moderate synovitis. INTRAPELVIC STRUCTURES: Unremarkable. MR/MR hip LT wo con IMPRESSION: 1. Moderate left hip osteoarthritis with a small joint effusion and moderate synovitis. 2. Diffuse complex degenerative tearing throughout the anterosuperior labrum. 3. No stress reaction, fracture, or avascular necrosis. 4. Right hip arthroplasty without evidence of hardware complication. 5. Degenerative disc disease and facet arthropathy within the lower lumbar spine.
== END 2023-07-06 10:03 | disposition home or self-care (01) ==
LOC: HO.MRI 10:02
PROVIDERS: PCP Internal Medicine; Visit Provider Orthopaedic Surgery
DX: M16.12 Unilateral primary osteoarthritis, left hip (principal)
CPT/HCPCS: 73721

== ENCOUNTER 2023-08-22 12:48 | Inpatient (IN) | payer OTHER, SELFPAY ==
[2023-08-22] VITALS (7 sets, daily range): BP systolic 148–161; BP diastolic 73–87; PULSE 75–86; RESP 18–20; TEMP 36.3–36.7; O2SAT 93–97; BMI 31.2
--- NOTE | ~2023-08-22 | CT_ITS ---
EXAMINATION: CT ABDOMEN AND PELVIS WITH CONTRAST CLINICAL INFORMATION: 53-year-old male with history of pancreatic COMPARISON: 03/09/2023 TECHNIQUE: Multidetector volumetric images were obtained from the superior aspect of the liver through the pubic symphysis following administration 85 mL of Omnipaque 350 intravenous contrast. Sagittal and coronal reformatted images were obtained on the technologist's workstation. Oral contrast: No This CT examination was performed using dose optimization techniques as appropriate, variously including the following: *Automated exposure control *Adjustment of mA and/or kV according to patient size (this includes techniques or standardized protocols for targeted exams where dose is matched to indication/reason for exam; i.e. extremities or head) *Use of iterative reconstruction technique DLP: 601 mGy-cm FINDINGS: LUNG BASES: The visualized lung bases are unremarkable. LIVER, GALLBLADDER, AND BILIARY TREE: The liver is normal in size, shape, and attenuation. No focal hepatic lesion or biliary ductal dilatation is present. The gallbladder is unremarkable with no evidence of radiopaque gallstones, gallbladder wall thickening, or obvious pericholecystic inflammatory changes. PANCREAS: There is peripancreatic stranding consistent with pancreatitis. Discogenic is slightly more prominent surrounding pancreatic head and most of the body as well as pancreatic tail. The pancreatic body, head, uncinate process otherwise unremarkable. No evidence of pseudocysts or ductal dilatation. SPLEEN: Unremarkable. ADRENAL GLANDS: Unremarkable. KIDNEYS AND URETERS: The kidneys are normal in size, shape, and attenuation. No hydronephrosis, hydroureter, or calculi seen. No perinephric stranding. BLADDER: Unremarkable. GASTROINTESTINAL TRACT: The stomach is unremarkable. There is mild duodenal wall thickening likely related to adjacent pancreatitis. Small bowel loops are not dilated. There is no colitis, diverticulitis, diverticulosis. Normal appendix visualized adjacent to the right lobe of the liver. ABDOMINAL WALL: There is small fat-containing umbilical hernia LYMPH NODES: Normal. VASCULAR: Unremarkable. PELVIC VISCERA: Unremarkable. OSSEOUS STRUCTURES: Patient is status post total hip replacement on the right. CT/CT abdomen pelvis w IV con IMPRESSION: Pancreatitis with peripancreatic stranding, prominence in the previous examination there is no pseudocysts or drainable fluid. Small umbilical fat-containing hernia. Fleischner guidelines were followed.
--- NOTE | ~2023-08-22 | CT_ITS ---
EXAMINATION: CT ABDOMEN AND PELVIS WITHOUT CONTRAST CLINICAL INFORMATION: Pancreatitis with worsening pain COMPARISON: CT 2 days ago on 08/22/2023 TECHNIQUE: Multidetector volumetric imaging was performed from the superior aspect of the liver through the pubic symphysis. Sagittal and coronal reformatted images were obtained on the technologist's workstation. This CT examination was performed using dose optimization techniques as appropriate, variously including the following: *Automated exposure control *Adjustment of mA and/or kV according to patient size (this includes techniques or standardized protocols for targeted exams where dose is matched to indication/reason for exam; i.e. extremities or head) *Use of iterative reconstruction technique DLP: 737 mGy-cm FINDINGS: LUNG BASES: Heart size normal. Moderate coronary calcium is seen. No pleural effusions or infiltrates are seen. LIVER, GALLBLADDER, AND BILIARY TREE: The liver is normal in size, shape, and attenuation. No focal hepatic lesion or biliary ductal dilatation is present. The gallbladder is filled with dense contrast, presumably vicarious excretion. There is no evidence of densely calcified radiopaque gallstones, gallbladder wall thickening, or obvious pericholecystic inflammatory changes. PANCREAS: Edematous changes are present around the pancreas with some improvement when compared to the 08/22/2023 study. No drainable collections are seen. No pancreatic calcifications or pancreatic ductal dilatation is seen. SPLEEN: Spleen is enlarged at 13 cm. ADRENAL GLANDS: Unremarkable. KIDNEYS AND URETERS: The kidneys are normal in size, shape, and attenuation. No hydronephrosis, hydroureter, or calculi seen. There is bilateral nonspecific perinephric stranding. BLADDER: Unremarkable. GASTROINTESTINAL TRACT: The small and large bowel are unremarkable. The appendix is unremarkable. ABDOMINAL WALL: Prior inguinal hernia repairs. There is a small periumbilical hernia seen containing only fat. Is seen. LYMPH NODES: There are shotty retroperitoneal lymph nodes present but no adenopathy. VASCULAR: Calcific atherosclerotic changes are present in the aorta and iliofemoral vessels. There is no evidence of an abdominal aortic aneurysm. PELVIC VISCERA: A statement seminal vesicles appear normal. The vas deferens are calcified. OSSEOUS STRUCTURES: Right total hip prosthesis is present. Some mild degenerative changes are present in the spine. CT/CT abdomen pelvis wo IV con IMPRESSION: 1. Improving pancreatitis. 2. Incidental note made of splenomegaly, prior inguinal hernia repairs, small periumbilical hernia containing only fat and right total hip prosthesis. Fleischner guidelines were followed.
[2023-08-22 13:30] LABS: Basophils Absolute Auto 0.1 X10*3/uL (0.0-0.2); Basophils Percent Auto 0.7 % (0-2); Eosinophils Absolute Auto 0.2 X10*3/uL (0.0-0.4); Eosinophils Percent Auto 1.6 % (0-4); Hematocrit 38.7 % (42.0-52.0); Hemoglobin 13.5 g/dl (14.0-18.0); Imm Gran Abs Auto 0.11 X10*3/uL (0.00-0.03); Imm Gran Pct Auto 1.2 % (0.0-0.4); Lymphocytes Absolute Auto 1.6 X10*3/uL (1.2-4.9); Lymphocytes Percent Auto 17.2 % (20-40); MANUAL DIFF FLAG NO; Mean Corpuscular HGB Conc 34.9 g/dl (31.0-36.0); Mean Corpuscular Hemoglobin 31.9 pg (27.0-33.0); Mean Corpuscular Volume 91.5 fL (80.0-98.0); Monocytes Absolute Auto 0.7 X10*3/uL (0.1-1.2); Monocytes Percent Auto 7.8 % (2-11); Neutrophils Absolute Auto 6.7 x10*3/uL (2.0-8.3); Neutrophils Percent Auto 71.5 % (45-73); Platelet Count 141 X10*3/uL (160-400); Red Blood Count 4.23 X10*6/uL (4.60-5.80); Red Cell Distribution Width 11.9 % (11.0-16.0); White Blood Count 9.4 X10*3/uL (4.8-10.8)
[2023-08-22 13:48] LABS: Alanine Aminotransferase 20 U/L (0-40); Albumin Level 4.5 g/dL (3.5-5.0); Alkaline Phosphatase 64 U/L (39-117); Anion Gap 14 (12-20); Aspartate Amino Transferase 21 U/L (5-37); Bilirubin Direct 0.2 mg/dL (0.0-0.5); Bilirubin Total 0.5 mg/dL (0.0-1.0); Blood Urea Nitrogen 15 mg/dL (9-16); Calcium 9.6 mg/dL (8.4-10.2); Carbon Dioxide 25 mmol/L (22-29); Chloride 104 mmol/L (96-108); Creatinine Clr Calc Pharmacy 91.3; Estimated Glomerular Filt Rate > 60; Glucose Random 146 mg/dL (60-115); Potassium 4.1 mmol/L (3.3-5.1); Sodium 139 mmol/L (135-145); Total Protein 7.2 g/dL (6.5-8.0)
[2023-08-22 13:57] LABS: Lipase 347 U/L (8-78)
--- NOTE | 2023-08-22 14:18 | ED.ABDPAIN ---
HPI - Abdominal Pain General Chief Complaint: Abdominal Pain Stated Complaint: bloating Time Seen by Provider: 08/22/23 14:17 Source: patient and RN notes reviewed Mode of arrival: ambulatory Limitations: no limitations History of Present Illness ED Provider: Meghan Goetz PA-C HPI narrative: This is a 53-year-old male, with a history of alcohol-induced pancreatitis, type 2 diabetes mellitus, hypertension, hyperlipidemia mood disorder who presents to the emergency department with complaints of left-sided upper abdominal pain since today. Patient states that the pain started suddenly. He endorses nausea and vomiting. No diarrhea. He denies any fevers, chills, shortness breath, diarrhea or constipation. No urinary symptoms. He states that he has a history of acute pancreatitis in symptoms feel similar. He states that he does drink alcohol, last use was August 18. He denies drinking alcohol every day. No other complaints or concerns MD elicited complaint: abdominal pain Pertinent past history: none Onset (ago): day(s) Radiation: none Migration to: no migration Exacerbating factors: nothing Relieving factors: nothing Associated symptoms: denies other symptoms Related Data Home Medications ?Medication ?Instructions ?Recorded ?Confirmed quetiapine 300 mg tablet 300 mg PO BEDTIME 02/27/20 03/10/23 trazodone 150 mg tablet 150 mg PO BEDTIME 02/27/20 03/10/23 sertraline 100 mg tablet 1 tab PO DAILY 06/23/21 03/10/23 metoprolol succinate 50 mg 50 mg PO DAILY 08/10/22 03/10/23 tablet,extended release 24 hr cyanocobalamin (vitamin B-12) 1,000 mcg PO DAILY 03/10/23 03/10/23 1,000 mcg tablet empagliflozin 25 mg tablet 25 mg PO DAILY 03/10/23 03/10/23 (Jardiance) famotidine 20 mg tablet 20 mg PO DAILY 08/22/23 fenofibrate nanocrystallized 145 145 mg PO DAILY 08/22/23 mg tablet insulin glargine 100 unit/mL (3 15 unit subcut DAILY 08/22/23 mL) subcutaneous pen (Lantus Solostar U-100 Insulin) lritaf-[id number]-[id number] 1 cap PO TID 08/22/23 3,000-9,500-15,000 unit capsule, delayed rel (Creon) lisinopril 10 mg tablet 10 mg PO DAILY 08/22/23 meloxicam 15 mg tablet 15 mg PO DAILY PRN pain 08/22/23 thiamine HCl (vitamin B1) 100 mg 100 mg PO DAILY 08/22/23 tablet Allergies Allergy/AdvReac Type Severity Reaction Status Date / Time sildenafil [From Viagra] Allergy Unknown Verified 08/22/23 13:05 Review of Systems Review of Systems Yes all other systems are reviewed and are negative Constitutional: Reports as per [facility] Past Medical History Medical History (Updated 08/22/23 @ 16:51 by ANGEL Diehl) Acromioclavicular joint arthritis Alcohol use disorder Cocaine abuse Alcohol withdrawal Duodenitis Diabetes mellitus Arthritis Alcohol abuse Cocaine abuse Seizures Hypertension Pancreatitis Surgical History H/O hernia repair Family History Family History Other CAD (coronary artery disease) Diabetes mellitus Social History Social History Household Members: None Housing: Apartment Do you presently have visiting nurse or other home services: Yes (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.) Alcohol intake: never Comment: refuses fall risk precautions Patient Tobacco Use Status: Never used Tobacco Smoked in Last 30 Days: No Second Hand Smoke Exposure: No Use of substances other than those prescribed or required for medical reasons: No Substance Use Type: Marijuana Advance Directives: Yes Advance Directives on File: Yes Advance Directives Date on File: 02/27/20 Do you have a plan to hurt others: No Plan service: No Current occupational status: disabled Physical Exam ED Vital Signs: Vital Signs - 24 hr 08/22/23 13:03 08/22/23 14:28 08/22/23 15:02 Temperature 97.8 F 97.7 F Pulse Rate 75 83 Respiratory Rate 18 20 20 Blood Pressure 148/74 H 152/77 H Pulse Oximetry 96 97 Oxygen Delivery Method Room Air Room Air BMI result Body Mass Index 31.2 Const Other: Patient appears to be uncomfortable secondary to pain. General: cooperative Orientation/consciousness: patient oriented x3 Limitations: no limitations HENMT Head: Yes normal to inspection, Yes normocephalic and Yes atraumatic Ears: hearing grossly normal bilaterally General nose exam: Normal external nose present Face and sinus: Yes normal facial exam Mouth: Normal oral and palatal mucosa present, oropharynx normal and moist mucous membranes Throat: Yes posterior oropharynx normal Eyes General: appearance normal, both eyes and all related structures Eyelids: Yes eyelids normal Conjunctivae: conjunctivae normal Sclerae: sclerae normal Pupils: Equal, round and reactive pupils present EOM: EOMs intact bilaterally Neck Neck: Yes normal visual inspection, Yes full ROM and Yes no lymphadenopathy Lymphatic: no lymphadenopathy noted Chest Chest palpation & inspection: normal inspection of the chest Resp Effort & Inspection: normal respiratory effort and able to speak in complete sentences Auscultation: clear to auscultation bilaterally, no crackles, no rales, no rhonchi and no wheezes Cardio Rate: regular rate Rhythm: regular rhythm Heart sounds: S1 normal heart sound present and S2 normal heart sound present GI Other: Exquisite left-sided tenderness palpation, with guarding. No rebound. Abdomen is soft Inspection: Yes normal to inspection Skin General skin exam: no rashes or lesions noted Trauma: no lacerations or abrasions Wounds: no wounds Neuro General: patient oriented x3 and moves all extremities Cranial nerves: Yes Equal, round and reactive pupils present Extrem General: Yes normal to inspection Right upper extremity: normal to inspection Left upper extremity: normal to inspection Right lower extremity: normal to inspection Left lower extremity: normal to inspection Course Reevaluation(s) Reevaluation #1: Patient feeling much better after receiving dose of Dilaudid, pending CT scan at this time. Time: 15:12 Reevaluation #2: CT scan revealing pancreatitis with peripancreatic stranding, prominence in the previous examination, there was no pseudocyst or drainable fluid. There has a small umbilical fat containing hernia. Given findings as well as severe pain, patient should be admitted for further management of his pancreatitis. Patient is agreeable. He remains to be comfortable, will continue to closely monitor. Patient admitted to hospitalist for further management of acute pancreatitis. Time: 16:45 Medical Decision Making Medical Decision Making [facility] Narrative: This is a 53-year-old male who presents emergency department with complaints of abdominal pain nausea and vomiting since this morning. On arrival, patient hypertensive at 148/74, she he is afebrile. He does appear to be uncomfortable secondary to pain. Labs were ordered prior to my assessment, lipase elevated at 347, he has no leukocytosis, slight normocytic anemia noted with an H&H of 13.5/38.7. EKG normal sinus rhythm. Abdomen is soft however with exquisite tenderness to the left upper abdomen, concerning for acute pancreatitis. Will get IV fluids, Dilaudid, and Zofran on board. CT scan of the abdomen is ordered for further analysis. Patient will likely be admitted for further management of acute pancreatitis however will obtain CT abdomen and pelvis to rule out any other etiologies. Differential Diagnosis Differential Diagnoses: The differential diagnosis associated with the presentation includes Pancreatitis, SBO, acute abdomen, nephrolithiasis, obstructive uropathy, gastritis, gastroenteritis Consult Healthcare Provider Management of the patient was discussed with: Hospitalist Lab Data MDM Lab Attestation statement: I reviewed the patient's lab results. No leukocytosis, normocytic anemia with a H&H of 13.5/38.7, platelets low at 141, he does have a history of this, mild hyperglycemia at 146, lipase elevated at 347 08/22/23 13:25 08/22/23 13:25 Labs: Lab Results 08/22/23 Range/Units 13:25 WBC 9.4 (4.8-10.8) X10*3/uL RBC 4.23 L (4.60-5.80) X10*6/uL Hgb 13.5 L (14.0-18.0) g/dl Hct 38.7 L (42.0-52.0) % MCV 91.5 (80.0-98.0) fL MCH 31.9 (27.0-33.0) pg MCHC 34.9 (31.0-36.0) g/dl RDW 11.9 (11.0-16.0) % Plt Count 141 L (160-400) X10*3/uL MPV 9.0 L (9.4-12.4) fL Immature Gran % (Auto) 1.2 H (0.0-0.4) % Neut % (Auto) 71.5 (45-73) % Lymph % (Auto) 17.2 L (20-40) % [place] % (Auto) 7.8 (2-11) % Eos % (Auto) 1.6 (0-4) % Baso % (Auto) 0.7 (0-2) % Lymph # (Auto) 1.6 (1.2-4.9) X10*3/uL [place] # (Auto) 0.7 (0.1-1.2) X10*3/uL Eos # (Auto) 0.2 (0.0-0.4) X10*3/uL Baso # (Auto) 0.1 (0.0-0.2) X10*3/uL Abs Immat Gran (auto) 0.11 H (0.00-0.03) X10*3/uL Absolute Neuts (auto) 6.7 (2.0-8.3) x10*3/uL Absolute Nucleated RBC 0.000 (0.0-0.012) X10*3/uL Nucleated RBC % (auto) 0.0 (0.0-0.2) /100WBC Sodium 139 (135-145) mmol/L Potassium 4.1 (3.3-5.1) mmol/L Chloride 104 (96-108) mmol/L Carbon Dioxide 25 (22-29) mmol/L Anion Gap 14 (12-20) BUN 15 (9-16) mg/dL Creatinine 0.98 (0.5-1.4) mg/dL Estim Creat Clear Calc 91.3 Estimated GFR > 60 Random Glucose 146 H (60-115) mg/dL Calcium 9.6 (8.4-10.2) mg/dL Total Bilirubin 0.5 (0.0-1.0) mg/dL Direct Bilirubin 0.2 (0.0-0.5) mg/dL AST 21 (5-37) U/L ALT 20 (0-40) U/L Alkaline Phosphatase 64 (39-117) U/L Troponin I High Sens < 2.7 (<3.5-35.0) ng/L Total Protein 7.2 (6.5-8.0) g/dL Albumin 4.5 (3.5-5.0) g/dL Lipase 347 H (8-78) U/L Ethyl Alcohol < 10 mg/dL Independent Interpretation I performed an independent interpretation of an: EKG Interpretation: EKG normal sinus rhythm at a ventricular rate of 83 beats per minute, QT QTC 392/460, no ST elevation or depression Radiology Impression Discussion of test interpretation with radiology: I have reviewed the radiologist's reading. Radiologist Impression: CT/CT abdomen pelvis w IV con IMPRESSION: Pancreatitis with peripancreatic stranding, prominence in the previous examination there is no pseudocysts or drainable fluid. Small umbilical fat-containing hernia. Fleischner guidelines were followed. Dictated By: Garrett Weeks MD Medications Administered Discontinued Medications Generic Name Dose Route Start Last Admin Trade Name Freq PRN Reason Stop Dose Admin Hydromorphone HCl 1 mg 08/22/23 14:26 08/22/23 15:02 Hydromorphone Hcl 1 Mg/Ml Syringe IVPUSH 08/22/23 14:27 1 mg ONCE ONE Administration Protocol Sodium Chloride 1,000 mls @ 999 mls/hr 08/22/23 14:26 08/22/23 17:04 Ns IV 08/22/23 15:26 Infused .Q1H1M ONE Infusion Iohexol 100 ml 08/22/23 15:49 08/22/23 15:49 Iohexol 350 Mg/Ml 100 Ml Infus..Btl IV 08/22/23 15:50 85 ml ONCE ONE Administration Ondansetron HCl 4 mg 08/22/23 14:26 08/22/23 15:02 Ondansetron Hcl 4 Mg/2 Ml Vial IVPUSH 08/22/23 14:27 4 mg ONCE ONE Administration Discharge Plan Discharge Clinical Impression: Acute pancreatitis Qualifiers: Pancreatitis type: other Patient Disposition: Admitted As Inpatient Print Language: Macanese
--- NOTE | 2023-08-22 14:25 | ECG_ITS ---
Test Reason : ABD PAIN Blood Pressure : / mmHG Vent. Rate : 083 BPM Atrial Rate : 083 BPM P-R Int : 136 ms QRS Dur : 088 ms QT Int : 392 ms P-R-T Axes : 033 -07 004 degrees QTc Int : 460 ms Normal sinus rhythm Normal ECG When compared with ECG of 09-MAR-2023 18:47, No significant change was found Referred By: Meghan Goetz Electronically Signed By:Chava Golden
[2023-08-22] MEDS: ondansetron HCL 4 MG/2 ML VIAL IVPUSH (15:02)
[2023-08-22] MEDS: HYDROmorphone HCl 1 MG/ML SYRINGE IVPUSH ×2 (15:02→21:15)
[2023-08-22] MEDS: 0.9 % Sodium Chloride 1,000 ML 999 ML IV (15:03)
[2023-08-22 15:27] LABS: Troponin-I High Sensitivity < 2.7 ng/L (<3.5-35.0)
[2023-08-22] MEDS: iohexoL 350 MG/ML 100 ML INFUS..BTL IV (15:49)
[2023-08-22 17:28] LABS: Ethanol < 10 mg/dL
--- NOTE | 2023-08-22 17:51 | PHA.MEDREC ---
Pharmacy Consult ? Medication Reconciliation Pharmacy has completed the medication reconciliation. Spoke to patient at bedside, stated there's a lot of them I don't think I could name. Listed meds based on claim history, patient agreeable to all of them despite Jardiance not being as recent as the rest. Stated he uses 25 units of lantus and takes a mens 50+ Centrum.
--- NOTE | 2023-08-22 17:57 | P.HPHOSP_ITS ---
History of Present Illness Date of Service: 08/22/23 Attending physician on admission: [facility] Chief Complaint: abd pain 53-year-old male with history of alcohol use disorder, cocaine use disorder, insulin-dependent type 2 diabetes, hypertension, history of pancreatitis, and unspecified seizure disorder not on antiepileptic therapy presented to the ED earlier today for evaluation of epigastric abdominal pain radiating to the back bilaterally that started last night. He reports initially a 10/10 pain that did improve with IV hydromorphone, but is now increased again to 9/10. No associated nausea or vomiting. No fevers chills, diarrhea, melena, hematochezia, lightheadedness, shortness of breath, chest pain. He does report that he has been drinking alcohol on a more frequent basis related to depression due to chronic pain and housing issues. He states that his last alcohol consumption was on 08/18 a consumed greater than 10 beers. He reports his last cocaine use was weeks ago and reports inhaled use only. Denies cigarette smoking. He has had pancreatitis in the past and reports feels similar. Since arrival, patient hemodynamically stable, mildly hypertensive to 152/77. There is no leukocytosis. Renal function and electrolyte levels normal. Glucose 146. Hepatic function within normal limits. Lipase 347. Ethyl alcohol level undetectable CT abdomen pelvis shows pancreatitis with peripancreatic stranding, no pseudocysts or drainable fluid. In the ED, received 1 mg hydromorphone, ondansetron, 1 L IV fluids. Will be admitted for further management of acute pancreatitis. 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.) Alcohol intake: never Comment: refuses fall risk precautions Patient Tobacco Use Status: Never used Tobacco Smoked in Last 30 Days: No Second Hand Smoke Exposure: No Use of substances other than those prescribed or required for medical reasons: No Substance Use Type: Marijuana Advance Directives: Yes Advance Directives on File: Yes Advance Directives Date on File: 02/27/20 Do you have a plan to hurt others: No Plan service: No Current occupational status: disabled Meds Allergies Allergy/AdvReac Type Severity Reaction Status Date / Time sildenafil [From Viagra] Allergy Unknown Verified 08/22/23 13:05 Active Medications: Current Medications Acetaminophen (Acetaminophen 325 Mg Tablet) 650 mg PO Q6H PRN PRN Reason: Pain, Mild (Pain Scale 1-3), fever or headache Calcium Carbonate (Calcium Carbonate 750 Mg Tab.Chew) 750 mg PO Q4H PRN PRN Reason: Heartburn Enoxaparin Sodium (Enoxaparin Sodium 40 Mg/0.4 Ml Syringe) 40 mg SUBCUT Q24H SHAGGY Folic Acid (Folic Acid 1 Mg Tablet) 1 mg PO DAILY SHAGGY Hydromorphone HCl (Hydromorphone Hcl 0.5 Mg/0.5 Ml Syringe) 0.5 mg IVPUSH Q3H PRN; Protocol PRN Reason: Pain, Severe (Pain Scale 7-10) Lactated Ringer's (Lr) 1,000 mls @ 125 mls/hr IVCONT .Q8H SHAGGY Magnesium Hydroxide (Milk Of Magnesia 30 Ml Oral.Susp) 30 ml PO DAILY PRN PRN Reason: Constipation Melatonin (Melatonin 3 Mg Tablet) 6 mg PO BEDTIME PRN PRN Reason: Insomnia Ondansetron HCl (Ondansetron Hcl 4 Mg/2 Ml Vial) 4 mg IVPUSH Q8H PRN PRN Reason: Nausea and Vomiting Oxycodone HCl (Oxycodone Hcl Immed Release 5 Mg Tablet) 5 mg PO Q6H PRN PRN Reason: Pain, Moderate(Pain Scale 4-6) Sodium Chloride (0.9 % Sodium Chloride Flush 3 Ml Syringe) 3 ml IVFLUSH QSHIFT SHAGGY Thiamine HCl (Thiamine Hcl 100 Mg Tablet) 100 mg PO DAILY [facility] Home Medications ?Medication ?Instructions ?Recorded ?Confirmed ?Last Taken ?Type quetiapine 300 mg tablet 300 mg PO BEDTIME 02/27/20 08/22/23 08/22/23 History trazodone 150 mg tablet 150 mg PO BEDTIME 02/27/20 08/22/23 08/22/23 History sertraline 100 mg tablet 1 tab PO DAILY 06/23/21 08/22/23 08/22/23 History metoprolol succinate 50 mg 50 mg PO DAILY 08/10/22 08/22/23 08/22/23 History tablet,extended release 24 hr cyanocobalamin (vitamin B-12) 1,000 mcg PO DAILY 03/10/23 08/22/23 08/22/23 History 1,000 mcg tablet empagliflozin 25 mg tablet 25 mg PO DAILY 03/10/23 08/22/23 08/22/23 History (Jardiance) famotidine 20 mg tablet 20 mg PO DAILY 08/22/23 08/22/23 08/22/23 History fenofibrate nanocrystallized 145 145 mg PO DAILY 08/22/23 08/22/23 08/22/23 History mg tablet insulin glargine 100 unit/mL (3 25 unit subcut DAILY 08/22/23 08/22/23 08/22/23 History mL) subcutaneous pen (Lantus Solostar U-100 Insulin) [id number]-hgidsenr-gsvheqi 1 cap PO TID 08/22/23 08/22/23 08/22/23 History 3,000-9,500-15,000 unit capsule, delayed rel (Creon) lisinopril 10 mg tablet 10 mg PO DAILY 08/22/23 08/22/23 08/22/23 History meloxicam 15 mg tablet 15 mg PO DAILY PRN pain 08/22/23 08/22/23 Unknown History jrriaeif-im-ydjbs 300 mcg-K 60 1 tab PO DAILY 08/22/23 08/22/23 08/22/23 History mcg-lycop 600 mcg-lutein 300 mcg tablet (Centrum Silver Men) thiamine HCl (vitamin B1) 100 mg 100 mg PO DAILY 08/22/23 08/22/23 08/22/23 History tablet Physical Exam 2 Vital Signs and Narrative: Vital Signs: Last Vital Signs Temp 97.7 F 08/22/23 14:28 Pulse 83 08/22/23 14:28 Resp 20 08/22/23 15:02 BP 152/77 H 08/22/23 14:28 Pulse Ox 97 08/22/23 14:28 O2 Del Method Room Air 08/22/23 14:28 BMI result Body Mass Index 31.2 Constitutional - Awake and Alert, No apparent distress Eyes - PERRLA, EOMI Cardiovascular - S1S2, RRR, No edema Respiratory - Normal lung expansion, Normal respiratory effort, No respiratory distress, CTA bilaterally Gastrointestinal - diffuse abd pain with involuntary guarding, no peritoneal signs, +BS, ND Extremities - no calf tenderness bilaterally, no swelling Skin - Warm/Dry Neurological - Alert & oriented x3 Psychological - Appropriate affect Results Labs 08/22/23 13:25 08/22/23 13:25 Labs: Laboratory Results - last 24 hr 08/22/23 13:25 MCV 91.5 MCH 31.9 MCHC 34.9 RDW 11.9 Plt Count 141 L MPV 9.0 L Immature Gran % (Auto) 1.2 H Neut % (Auto) 71.5 Lymph % (Auto) 17.2 L Andrews % (Auto) 7.8 Eos % (Auto) 1.6 Baso % (Auto) 0.7 Lymph # (Auto) 1.6 Andrews # (Auto) 0.7 Eos # (Auto) 0.2 Baso # (Auto) 0.1 Abs Immat Gran (auto) 0.11 H Absolute Neuts (auto) 6.7 Absolute Nucleated RBC 0.000 Nucleated RBC % (auto) 0.0 Anion Gap 14 Estim Creat Clear Calc 91.3 Estimated GFR > 60 Random Glucose 146 H Calcium 9.6 Total Bilirubin 0.5 Direct Bilirubin 0.2 AST 21 ALT 20 Alkaline Phosphatase 64 Troponin I High Sens < 2.7 Total Protein 7.2 Albumin 4.5 Lipase 347 H Ethyl Alcohol < 10 Imaging Radiologist's Impressions: Impressions Abdomen/Pelvis CT 08/22/23 16:00 IMPRESSION: Pancreatitis with peripancreatic stranding, prominence in the previous examination there is no pseudocysts or drainable fluid. Small umbilical fat-containing hernia. Fleischner guidelines were followed. Assessment and Plan (1) Acute pancreatitis: Qualifiers: Pancreatitis type: other Status: Acute Plan 53-year-old male with history of alcohol use disorder, cocaine use disorder, insulin-dependent type 2 diabetes, hypertension, history of pancreatitis, and unspecified seizure disorder not on antiepileptic therapy admitted for management of acute pancreatitis #Acute alcoholic pancreatitis -CT abd pelvis shows acute pancreatitis with peripancreatic fat stranding. No drainable fluid or cirrhosis -lipase 370 -check triglycerides -aggressive IV fluids with LR at 125 mL/hr -pain management using pain scale -antiemetics p.r.n. -clear liquids -trend lipase # alcohol use disorder -last drink 08/18, no evidence of acute withdrawal at this time -Monitor on ciwa for now, if scoring, consider phenobarbital per protocol -po thiamine and folic acid -counseled on cessation #Cocaine use disorder -declines addiction med consult -counseled on cessation #Insulin dependent type 2 diabetes without hyperglycemia -dose adjusted basal insulin -poc glucose, advance to diabetic diet -admelog on ss -hold jardiance #HTN -continue metoprolol #Unspecified seizure disorder -denies etoh withdrawal seizures, not on antiepilecptics -monitor dvt prophylaxis- lovenox full code pt requires inpt stay at least 2 midnights due to acute pnacreatitis with intractable abd pain despite iv narcotics. Will require aggressive IVF, IV pain control and close monitoring of hemodynamics to monitor for and prevent decompensation Quality Stroke Does the patient have a stroke diagnosis?: No VTE Prior VTE?: No VTE Risk Level:: Medical - moderate - high VTE Device Contraindication: Treatment Not Indicated VTE Drug Contraindication: N/A - Med Ordered
[2023-08-22] MEDS: Thiamine HCL 100 MG TABLET PO (18:04)
[2023-08-22] MEDS: Enoxaparin Sodium 40 MG/0.4 ML SYRINGE SUBCUT (18:05)
[2023-08-22] MEDS: Folic Acid 1 MG TABLET PO (18:05)
[2023-08-22] MEDS: Lactated Ringers 1,000 ML 125 ML IVCONT (18:06)
[2023-08-22] MEDS: HYDROmorphone HCl 0.5 MG/0.5 ML SYRINGE IVPUSH ×2 (18:15→20:01)
[2023-08-22 18:18] LABS: Triglycerides 137 mg/dL (<150)
--- NOTE | 2023-08-22 20:07 | PC.NURSE ---
This screenplay writer assumed care of this Pt at 1900. Pt A&Ox3, from home, came if for sudden onset of abdominal pain since today with N/V. Pt reporting 10/10 stabbing ABD pain, Dr. Juares made aware, Pt medicated per APR. CIWA score 0. 20G IV to R wrist with LR @125 mL/hr. Pt reports he ambulates with cane. Report complete Pt will be transported to room 362, Pt aware of plan.
[2023-08-22] MEDS: QUEtiapine Fumarate 300 MG TABLET PO (20:14)
[2023-08-22] MEDS: traZODone HCL 50 MG TABLET 150 MG PO (20:15)
[2023-08-22 20:36] LABS: Glucose, Whole Blood 96 mg/dL (60-115)
[2023-08-22] MEDS: 0.9 % Sodium Chloride Flush 3 ML SYRINGE IVFLUSH (21:16)
[2023-08-22] MEDS: oxyCODONE HCl Immed Release 5 MG TABLET PO (22:36)
[2023-08-22] MEDS: Acetaminophen 325 MG TABLET 650 MG PO (22:36)
[2023-08-22] MEDS: Melatonin 3 MG TABLET 6 MG PO (22:36)
[2023-08-23] VITALS (7 sets, daily range): BP systolic 123–181; BP diastolic 70–94; PULSE 67–78; RESP 15–20; TEMP 36.2–36.6; O2SAT 95–98
[2023-08-23] MEDS: HYDROmorphone HCl 1 MG/ML SYRINGE IVPUSH ×10 (00:12→23:55)
[2023-08-23] MEDS: Lactated Ringers 1,000 ML 125 ML IVCONT ×3 (03:01→17:11)
[2023-08-23] MEDS: Acetaminophen 325 MG TABLET 650 MG PO (04:34)
[2023-08-23] MEDS: oxyCODONE HCl Immed Release 5 MG TABLET PO ×3 (04:35→20:48)
[2023-08-23] MEDS: ondansetron HCL 4 MG/2 ML VIAL IVPUSH (05:07)
[2023-08-23 05:48] LABS: MANUAL DIFF FLAG NO
[2023-08-23 05:56] LABS: Basophils Percent Auto 0.3 % (0-2); Eosinophils Absolute Auto 0.1 X10*3/uL (0.0-0.4); Eosinophils Percent Auto 1.1 % (0-4); Hematocrit 37.9 % (42.0-52.0); Hemoglobin 13.2 g/dl (14.0-18.0); Imm Gran Abs Auto 0.07 X10*3/uL (0.00-0.03); Imm Gran Pct Auto 0.8 % (0.0-0.4); Lymphocytes Absolute Auto 0.9 X10*3/uL (1.2-4.9); Lymphocytes Percent Auto 9.4 % (20-40); Mean Corpuscular HGB Conc 34.8 g/dl (31.0-36.0); Mean Corpuscular Hemoglobin 31.7 pg (27.0-33.0); Mean Corpuscular Volume 90.9 fL (80.0-98.0); Mean Platelet Volume 9.8 fL (9.4-12.4); Monocytes Absolute Auto 0.8 X10*3/uL (0.1-1.2); Monocytes Percent Auto 9.1 % (2-11); Neutrophils Absolute Auto 7.3 x10*3/uL (2.0-8.3); Neutrophils Percent Auto 79.3 % (45-73); Platelet Count 131 X10*3/uL (160-400); Red Blood Count 4.17 X10*6/uL (4.60-5.80); Red Cell Distribution Width 11.9 % (11.0-16.0); White Blood Count 9.3 X10*3/uL (4.8-10.8)
[2023-08-23 06:14] LABS: Anion Gap 14 (12-20); Blood Urea Nitrogen 9 mg/dL (9-16); Calcium 8.9 mg/dL (8.4-10.2); Carbon Dioxide 26 mmol/L (22-29); Chloride 101 mmol/L (96-108); Creatinine Clr Calc Pharmacy 119.4; Estimated Glomerular Filt Rate > 60; Glucose Random 90 mg/dL (60-115); Potassium 3.4 mmol/L (3.3-5.1); Sodium 138 mmol/L (135-145)
[2023-08-23 06:49] LABS: Lipase 559 U/L (8-78)
[2023-08-23 07:17] LABS: Glucose, Whole Blood 93 mg/dL (60-115)
[2023-08-23] MEDS: Insulin Glargine,Hum.rec.anlog 100 UNIT/ML 10 ML VIAL 18 UNIT SUBCUT (08:12)
--- NOTE | 2023-08-23 08:23 | P.PNIM_ITS ---
Subjective Subjective Date of Service: 08/23/23 Review of Systems Follow up pancreatitis still with abd pain and nausea Physical Exam 2 Vital Signs: Vital Signs: Last Vital Signs Temp 18 F L 08/23/23 07:50 Pulse 67 08/23/23 07:50 Resp 18 08/23/23 07:50 BP 168/74 H 08/23/23 07:50 Pulse Ox 95 08/23/23 07:50 O2 Del Method Room Air 08/23/23 07:50 BMI result Body Mass Index 31.2 Appearing in no acute distress lung sounds are clear to auscultation heart regular rate rhythm, clear S1, S2 positive bowel sounds, abdomen is soft, tender Objective Data Active Medications Acetaminophen (Acetaminophen 325 Mg Tablet) 650 mg PO Q6H PRN PRN Reason: Pain, Mild (Pain Scale 1-3), fever or headache Last Admin: 08/23/23 04:34 Dose: 650 mg Documented By: LUIS FELIPE Calcium Carbonate (Calcium Carbonate 750 Mg Tab.Chew) 750 mg PO Q4H PRN PRN Reason: Heartburn Cyanocobalamin (Cyanocobalamin (Vitamin B-12) 1,000 Mcg Tablet) 1,000 mcg PO DAILY [facility] Enoxaparin Sodium (Enoxaparin Sodium 40 Mg/0.4 Ml Syringe) 40 mg SUBCUT Q24H [facility] Last Admin: 08/22/23 18:05 Dose: 40 mg Documented By: KP Famotidine (Famotidine/Pf 20 Mg/2 Ml Vial) 20 mg IVPUSH BID [facility] Fenofibrate (Fenofibrate 160 Mg Tablet) 160 mg PO DAILY [facility] Folic Acid (Folic Acid 1 Mg Tablet) 1 mg PO DAILY [facility] Last Admin: 08/22/23 18:05 Dose: 1 mg Documented By: KP Hydromorphone HCl (Hydromorphone Hcl 1 Mg/Ml Syringe) 1 mg IVPUSH Q2H PRN; Protocol PRN Reason: Pain, Severe (Pain Scale 7-10) Lactated Ringer's (Lr) 1,000 mls @ 125 mls/hr IVCONT .Q8H [facility] Last Admin: 08/23/23 03:01 Dose: 125 mls/hr Documented By: LUIS FELIPE Insulin Glargine (Insulin Glargine,Hum.Rec.Anlog 100 Unit/Ml 10 Ml Vial) 18 unit SUBCUT DAILY [facility] Last Admin: 08/23/23 08:12 Dose: 18 unit Documented By: WARREN Lisinopril (Lisinopril 10 Mg Tablet) 10 mg PO DAILY [facility]; Protocol Magnesium Hydroxide (Milk Of Magnesia 30 Ml Oral.Susp) 30 ml PO DAILY PRN PRN Reason: Constipation Melatonin (Melatonin 3 Mg Tablet) 6 mg PO BEDTIME PRN PRN Reason: Insomnia Last Admin: 08/22/23 22:36 Dose: 6 mg Documented By: LUIS FELIPE Metoprolol Succinate (Metoprolol Succinate Er 50 Mg Tab.Er.24h) 50 mg PO DAILY [facility]; Protocol Multivitamins/Vitamin C (Multivitamin Tablet) 1 tab PO DAILY [facility] Non-Formulary Medication (Epsqpp-Xuvdfwgj-Egkfjkg [Creon]) 1 cap PO TIDWM [facility] Ondansetron HCl (Ondansetron Hcl 4 Mg/2 Ml Vial) 4 mg IVPUSH Q8H PRN PRN Reason: Nausea and Vomiting Last Admin: 08/23/23 05:07 Dose: 4 mg Documented By: LUIS FELIPE Oxycodone HCl (Oxycodone Hcl Immed Release 5 Mg Tablet) 5 mg PO Q4H PRN PRN Reason: Pain, Moderate(Pain Scale 4-6) Quetiapine Fumarate (Quetiapine Fumarate 300 Mg Tablet) 300 mg PO BEDTIME [facility] Last Admin: 08/22/23 20:14 Dose: 300 mg Documented By: DOTTY Sertraline HCl (Sertraline Hcl 100 Mg Tablet) 100 mg PO DAILY [facility] Sodium Chloride (0.9 % Sodium Chloride Flush 3 Ml Syringe) 3 ml IVFLUSH QSHIFT [facility] Last Admin: 08/23/23 08:19 Dose: Not Given Documented By: WARREN Non-Admin Reason: IV Running Thiamine HCl (Thiamine Hcl 100 Mg Tablet) 100 mg PO DAILY [facility] Last Admin: 08/22/23 18:04 Dose: 100 mg Documented By: KP Trazodone HCl (Trazodone Hcl 50 Mg Tablet) 150 mg PO BEDTIME [facility] Last Admin: 08/22/23 20:15 Dose: 150 mg Documented By: DOTYT Labs 08/23/23 05:21 08/23/23 05:21 Labs: Laboratory Results - last 24 hr 08/22/23 08/22/23 08/23/23 13:25 20:33 05:21 MCV 91.5 90.9 MCH 31.9 31.7 MCHC 34.9 34.8 RDW 11.9 11.9 Plt Count 141 L 131 L MPV 9.0 L 9.8 Immature Gran % (Auto) 1.2 H 0.8 H Neut % (Auto) 71.5 79.3 H Lymph % (Auto) 17.2 L 9.4 L Moore % (Auto) 7.8 9.1 Eos % (Auto) 1.6 1.1 Baso % (Auto) 0.7 0.3 Lymph # (Auto) 1.6 0.9 L Moore # (Auto) 0.7 0.8 Eos # (Auto) 0.2 0.1 Baso # (Auto) 0.1 0.0 Abs Immat Gran (auto) 0.11 H 0.07 H Absolute Neuts (auto) 6.7 7.3 Absolute Nucleated RBC 0.000 0.000 Nucleated RBC % (auto) 0.0 0.0 Anion Gap 14 14 Estim Creat Clear Calc 91.3 119.4 Estimated GFR > 60 > 60 POC Glucose 96 Random Glucose 146 H 90 Calcium 9.6 8.9 D Total Bilirubin 0.5 Direct Bilirubin 0.2 AST 21 ALT 20 Alkaline Phosphatase 64 Troponin I High Sens < 2.7 Total Protein 7.2 Albumin 4.5 Triglycerides 137 Lipase 347 H 559 H Ethyl Alcohol < 10 08/23/23 07:05 MCV MCH MCHC RDW Plt Count MPV Immature Gran % (Auto) Neut % (Auto) Lymph % (Auto) Moore % (Auto) Eos % (Auto) Baso % (Auto) Lymph # (Auto) Moore # (Auto) Eos # (Auto) Baso # (Auto) Abs Immat Gran (auto) Absolute Neuts (auto) Absolute Nucleated RBC Nucleated RBC % (auto) Anion Gap Estim Creat Clear Calc Estimated GFR POC Glucose 93 Random Glucose Calcium Total Bilirubin Direct Bilirubin AST ALT Alkaline Phosphatase Troponin I High Sens Total Protein Albumin Triglycerides Lipase Ethyl Alcohol Assessment and Plan (1) Acute pancreatitis: Status: Acute Plan 53-year-old male with history of alcohol use disorder, cocaine use disorder, insulin-dependent type 2 diabetes, hypertension, history of pancreatitis, and unspecified seizure disorder not on antiepileptic therapy admitted for management of acute pancreatitis Acute alcoholic pancreatitis aggressive IV fluids with LR at 125 mL/hr pain management antiemetics p.r.n. IV pepcid clear liquids as tolerated alcohol use disorder last drink 08/18, no evidence of acute withdrawal at this time Monitor on ciwa po thiamine and folic acid counseled on cessation Cocaine use disorder declines addiction med consult counseled on cessation Insulin dependent type 2 diabetes without hyperglycemia poc, ss HTN continue metoprolol Unspecified seizure disorder denies etoh withdrawal seizures, not on antiepilecptics monitor dvt prophylaxis- lovenox attending Dr. Oliver full code continue hospital stay for acute pancreatitis with intractable abd pain despite iv narcotics. Will require aggressive IVF, IV pain control and close monitoring of hemodynamics to monitor for and prevent decompensation Quality Stroke Does the patient have a stroke diagnosis?: No VTE Prior VTE?: No VTE Risk Level:: Medical - moderate - high VTE Device Contraindication: Treatment Not Indicated VTE Drug Contraindication: N/A - Med Ordered
[2023-08-23] MEDS: Famotidine/PF 20 MG/2 ML VIAL IVPUSH ×2 (08:26→20:48)
--- NOTE | 2023-08-23 09:23 | MHC.CM.PN ---
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 CM WILL VERIFIY AND LET HOSPITALIST KNOW DURING ROUNDS. ' PCP/HCP ON FILE VERIFIED. PER PT HE WILL NEED [facility] ON DC.
[2023-08-23] MEDS: Thiamine HCL 100 MG TABLET PO (09:51)
[2023-08-23] MEDS: Sertraline HCL 100 MG TABLET PO (09:51)
[2023-08-23] MEDS: lisinopriL 10 MG TABLET PO (09:51)
[2023-08-23] MEDS: Folic Acid 1 MG TABLET PO (09:51)
[2023-08-23] MEDS: Metoprolol Succinate ER 50 MG TAB.ER.24H PO (09:51)
[2023-08-23] MEDS: Cyanocobalamin (Vitamin B-12) 1,000 MCG TABLET 1000 MCG PO (09:51)
[2023-08-23] MEDS: Fenofibrate 160 MG TABLET PO (09:51)
[2023-08-23] MEDS: Multivitamin TABLET 1 TAB PO (09:51)
[2023-08-23 11:21] LABS: Glucose, Whole Blood 96 mg/dL (60-115)
[2023-08-23 16:14] LABS: Glucose, Whole Blood 79 mg/dL (60-115)
[2023-08-23] MEDS: Enoxaparin Sodium 40 MG/0.4 ML SYRINGE SUBCUT (17:11)
[2023-08-23 19:29] LABS: Glucose, Whole Blood 84 mg/dL (60-115)
[2023-08-23] MEDS: Melatonin 3 MG TABLET 6 MG PO (20:48)
[2023-08-23] MEDS: traZODone HCL 50 MG TABLET 150 MG PO (20:48)
[2023-08-23] MEDS: QUEtiapine Fumarate 300 MG TABLET PO (20:48)
[2023-08-23] MEDS: Lactated Ringers 1,000 ML 150 ML IVCONT (23:51)
[2023-08-24] MEDS: Lactated Ringers 1,000 ML 150 ML IVCONT (03:41)
[2023-08-24] MEDS: HYDROmorphone HCl 1 MG/ML SYRINGE IVPUSH ×7 (03:42→21:25)
[2023-08-24 03:52] VITALS: BP 95/50; PULSE 79; RESP 18; TEMP 36.5; O2SAT 96
[2023-08-24 06:49] LABS: Anion Gap 14 (12-20); Blood Urea Nitrogen 5 mg/dL (9-16); Carbon Dioxide 26 mmol/L (22-29); Chloride 101 mmol/L (96-108); Creatinine Clr Calc Pharmacy 119.4; Estimated Glomerular Filt Rate > 60; Glucose Random 63 mg/dL (60-115); Lipase 131 U/L (8-78); Potassium 3.6 mmol/L (3.3-5.1); Sodium 137 mmol/L (135-145)
[2023-08-24 07:50] LABS: Glucose, Whole Blood 67 mg/dL (60-115)
[2023-08-24 07:55] VITALS: BP 135/67; PULSE 85; RESP 17; TEMP 36.1; O2SAT 97
[2023-08-24] MEDS: Famotidine/PF 20 MG/2 ML VIAL IVPUSH ×2 (08:01→20:20)
[2023-08-24 08:05] VITALS: BP 135/67; PULSE 85
[2023-08-24] MEDS: Thiamine HCL 100 MG TABLET PO (08:05)
[2023-08-24] MEDS: Multivitamin TABLET 1 TAB PO (08:05)
[2023-08-24] MEDS: Sertraline HCL 100 MG TABLET PO (08:05)
[2023-08-24] MEDS: Folic Acid 1 MG TABLET PO (08:05)
[2023-08-24] MEDS: Cyanocobalamin (Vitamin B-12) 1,000 MCG TABLET 1000 MCG PO (08:05)
[2023-08-24] MEDS: Fenofibrate 160 MG TABLET PO (08:05)
[2023-08-24] MEDS: Metoprolol Succinate ER 50 MG TAB.ER.24H PO (08:05)
[2023-08-24] MEDS: lisinopriL 10 MG TABLET PO (08:05)
[2023-08-24] MEDS: Glucose Gel 15 GM GEL..GRAM. PO (08:14)
[2023-08-24] MEDS: Dextrose 5 % and 0.9 % NaCl 1,000 ML 125 ML IVCONT ×2 (08:15→16:26)
[2023-08-24 08:40] LABS: Glucose, Whole Blood 94 mg/dL (60-115)
--- NOTE | 2023-08-24 09:23 | P.PNIM_ITS ---
Subjective Subjective Date of Service: 08/24/23 Review of Systems Follow up pancreatitis still with abd pain and nausea but better Physical Exam 2 Vital Signs: Vital Signs: Last Vital Signs Temp 97.0 F 08/24/23 07:55 Pulse 85 08/24/23 08:05 Resp 17 08/24/23 07:55 BP 135/67 08/24/23 08:05 Pulse Ox 97 08/24/23 07:55 O2 Del Method Room Air 08/24/23 07:55 BMI result Body Mass Index 31.2 Appearing in no acute distress lung sounds are clear to auscultation heart regular rate rhythm, clear S1, S2 positive bowel sounds, abdomen is soft, nontender neuro patient is alert x3, no focal deficits Objective Data Active Medications Acetaminophen (Acetaminophen 325 Mg Tablet) 650 mg PO Q6H PRN PRN Reason: Pain, Mild (Pain Scale 1-3), fever or headache Last Admin: 08/23/23 04:34 Dose: 650 mg Documented By: LUIS FELIPE Calcium Carbonate (Calcium Carbonate 750 Mg Tab.Chew) 750 mg PO Q4H PRN PRN Reason: Heartburn Cyanocobalamin (Cyanocobalamin (Vitamin B-12) 1,000 Mcg Tablet) 1,000 mcg PO DAILY [facility] Last Admin: 08/24/23 08:05 Dose: 1,000 mcg Documented By: WARREN Enoxaparin Sodium (Enoxaparin Sodium 40 Mg/0.4 Ml Syringe) 40 mg SUBCUT Q24H [facility] Last Admin: 08/23/23 17:11 Dose: 40 mg Documented By: WARREN Famotidine (Famotidine/Pf 20 Mg/2 Ml Vial) 20 mg IVPUSH BID [facility] Last Admin: 08/24/23 08:01 Dose: 20 mg Documented By: WARREN Fenofibrate (Fenofibrate 160 Mg Tablet) 160 mg PO DAILY [facility] Last Admin: 08/24/23 08:05 Dose: 160 mg Documented By: WARREN Folic Acid (Folic Acid 1 Mg Tablet) 1 mg PO DAILY [facility] Last Admin: 08/24/23 08:05 Dose: 1 mg Documented By: WARREN Glucose (Glucose Gel 15 Gm Gel..Gram.) 15 gm PO Q15M PRN; Protocol PRN Reason: per Hypoglycemia Standing Ord. Last Admin: 08/24/23 08:14 Dose: 15 gm Documented By: WARREN Hydromorphone HCl (Hydromorphone Hcl 1 Mg/Ml Syringe) 1 mg IVPUSH Q2H PRN; Protocol PRN Reason: Pain, Severe (Pain Scale 7-10) Last Admin: 08/24/23 08:00 Dose: 1 mg Documented By: WARREN Dextrose/Sodium Chloride (D5ns) 1,000 mls @ 125 mls/hr IVCONT .Q8H [facility] Last Admin: 08/24/23 08:15 Dose: 125 mls/hr Documented By: WARREN Insulin Glargine (Insulin Glargine,Hum.Rec.Anlog 100 Unit/Ml 10 Ml Vial) 18 unit SUBCUT DAILY [facility] Last Admin: 08/23/23 08:12 Dose: 18 unit Documented By: WARREN Lisinopril (Lisinopril 10 Mg Tablet) 10 mg PO DAILY [facility]; Protocol Last Admin: 08/24/23 08:05 Dose: 10 mg Documented By: WARREN Magnesium Hydroxide (Milk Of Magnesia 30 Ml Oral.Susp) 30 ml PO DAILY PRN PRN Reason: Constipation Melatonin (Melatonin 3 Mg Tablet) 6 mg PO BEDTIME PRN PRN Reason: Insomnia Last Admin: 08/23/23 20:48 Dose: 6 mg Documented By: LUIS FELIPE Metoprolol Succinate (Metoprolol Succinate Er 50 Mg Tab.Er.24h) 50 mg PO DAILY [facility]; Protocol Last Admin: 08/24/23 08:05 Dose: 50 mg Documented By: WARREN Multivitamins/Vitamin C (Multivitamin Tablet) 1 tab PO DAILY [facility] Last Admin: 08/24/23 08:05 Dose: 1 tab Documented By: WARREN Non-Formulary Medication (Csgmjr-Etiyirmh-Cfxgxtt [Creon]) 1 cap PO TIDWM [facility] Ondansetron HCl (Ondansetron Hcl 4 Mg/2 Ml Vial) 4 mg IVPUSH Q8H PRN PRN Reason: Nausea and Vomiting Last Admin: 08/23/23 05:07 Dose: 4 mg Documented By: LUIS FELIPE Oxycodone HCl (Oxycodone Hcl Immed Release 5 Mg Tablet) 5 mg PO Q4H PRN PRN Reason: Pain, Moderate(Pain Scale 4-6) Last Admin: 08/23/23 20:48 Dose: 5 mg Documented By: LUIS FELIPE Quetiapine Fumarate (Quetiapine Fumarate 300 Mg Tablet) 300 mg PO BEDTIME [facility] Last Admin: 08/23/23 20:48 Dose: 300 mg Documented By: LUIS FELIPE Sertraline HCl (Sertraline Hcl 100 Mg Tablet) 100 mg PO DAILY [facility] Last Admin: 08/24/23 08:05 Dose: 100 mg Documented By: WARREN Sodium Chloride (0.9 % Sodium Chloride Flush 3 Ml Syringe) 3 ml IVFLUSH QSHIFT [facility] Last Admin: 08/24/23 08:06 Dose: Not Given Documented By: WARREN Non-Admin Reason: IV Running Thiamine HCl (Thiamine Hcl 100 Mg Tablet) 100 mg PO DAILY [facility] Last Admin: 08/24/23 08:05 Dose: 100 mg Documented By: WARREN Trazodone HCl (Trazodone Hcl 50 Mg Tablet) 150 mg PO BEDTIME [facility] Last Admin: 08/23/23 20:48 Dose: 150 mg Documented By: LUIS FELIPE Labs 08/23/23 05:21 08/24/23 05:47 Labs: Laboratory Results - last 24 hr 08/23/23 08/23/23 08/23/23 11:10 16:11 19:24 Hold Purple Top Anion Gap Estim Creat Clear Calc Estimated GFR POC Glucose 96 79 84 Random Glucose Calcium Lipase 08/24/23 08/24/23 08/24/23 05:47 07:45 08:36 Hold Purple Top SEE NOTE Anion Gap 14 Estim Creat Clear Calc 119.4 Estimated GFR > 60 POC Glucose 67 94 Random Glucose 63 Calcium 9.0 Lipase 131 H Assessment and Plan (1) Acute pancreatitis: Status: Acute Plan 53-year-old male with history of alcohol use disorder, cocaine use disorder, insulin-dependent type 2 diabetes, hypertension, history of pancreatitis, and unspecified seizure disorder not on antiepileptic therapy admitted for management of acute pancreatitis Acute alcoholic pancreatitis lipase down 559>131 aggressive IV fluids, change to D5NS due to hypoglycemia pain management antiemetics p.r.n. IV pepcid clear liquids as tolerated alcohol use disorder last drink 08/18, no evidence of acute withdrawal at this time Monitor on ciwa po thiamine and folic acid counseled on cessation Cocaine use disorder declines addiction med consult counseled on cessation Insulin dependent type 2 diabetes with hypoglycemia poc, ss hold lantus HTN continue metoprolol Unspecified seizure disorder denies etoh withdrawal seizures, not on antiepilecptics monitor dvt prophylaxis- lovenox attending Dr. Nguyen full code continue hospital stay for acute pancreatitis with intractable abd pain despite iv narcotics. Will require aggressive IVF, IV pain control and close monitoring of hemodynamics to monitor for and prevent decompensation Quality Stroke Does the patient have a stroke diagnosis?: No VTE Prior VTE?: No VTE Risk Level:: Medical - moderate - high VTE Device Contraindication: Treatment Not Indicated VTE Drug Contraindication: N/A - Med Ordered
[2023-08-24] MEDS: LORazepam 2 MG/ML VIAL 0.5 MG IVPUSH ×2 (10:47→18:44)
[2023-08-24 11:26] LABS: Glucose, Whole Blood 180 mg/dL (60-115)
[2023-08-24 15:24] VITALS: BP 116/67; PULSE 80; RESP 14; TEMP 36.6; O2SAT 95
[2023-08-24] MEDS: oxyCODONE HCl Immed Release 5 MG TABLET PO ×2 (15:27→20:20)
[2023-08-24] MEDS: Enoxaparin Sodium 40 MG/0.4 ML SYRINGE SUBCUT (16:22)
[2023-08-24 16:31] LABS: Glucose, Whole Blood 179 mg/dL (60-115)
[2023-08-24] MEDS: Lactated Ringers 1,000 ML 100 ML IVCONT ×2 (17:02→21:44)
[2023-08-24] MEDS: Insulin Lispro 100 UNIT/ML 3 ML VIAL SUBCUT (17:02)
[2023-08-24 19:25] VITALS: BP 140/88; PULSE 91; RESP 18; TEMP 36.4; O2SAT 94
[2023-08-24 20:08] LABS: Glucose, Whole Blood 118 mg/dL (60-115)
[2023-08-24 20:12] LABS: C Reactive Protein 20.13 mg/dL (< or = 0.50)
[2023-08-24] MEDS: traZODone HCL 50 MG TABLET 150 MG PO (20:21)
[2023-08-24] MEDS: QUEtiapine Fumarate 300 MG TABLET PO (20:21)
[2023-08-25] MEDS: HYDROmorphone HCl 1 MG/ML SYRINGE IVPUSH ×7 (03:29→22:16)
[2023-08-25] MEDS: Lactated Ringers 1,000 ML 100 ML IVCONT ×3 (03:33→21:26)
[2023-08-25 04:00] VITALS: BP 118/66; PULSE 74; RESP 16; TEMP 36.2; O2SAT 97
[2023-08-25 07:53] LABS: Glucose, Whole Blood 140 mg/dL (60-115)
[2023-08-25 08:00] VITALS: BP 134/79; PULSE 83; RESP 14; TEMP 36; O2SAT 98
[2023-08-25 08:26] VITALS: BP 134/79; PULSE 83
[2023-08-25] MEDS: Fenofibrate 160 MG TABLET PO (08:26)
[2023-08-25] MEDS: Cyanocobalamin (Vitamin B-12) 1,000 MCG TABLET 1000 MCG PO (08:26)
[2023-08-25] MEDS: Famotidine/PF 20 MG/2 ML VIAL IVPUSH ×2 (08:26→21:26)
[2023-08-25] MEDS: Thiamine HCL 100 MG TABLET PO (08:26)
[2023-08-25] MEDS: Sertraline HCL 100 MG TABLET PO (08:26)
[2023-08-25] MEDS: Metoprolol Succinate ER 50 MG TAB.ER.24H PO (08:26)
[2023-08-25] MEDS: Multivitamin TABLET 1 TAB PO (08:26)
[2023-08-25] MEDS: Folic Acid 1 MG TABLET PO (08:26)
[2023-08-25 08:27] VITALS: BP 134/79
[2023-08-25] MEDS: lisinopriL 10 MG TABLET PO (08:27)
--- NOTE | 2023-08-25 09:36 | P.PNIM_ITS ---
Subjective Subjective Date of Service: 08/25/23 Review of Systems Follow up pancreatitis still with abd pain and nausea but better Physical Exam 2 Vital Signs: Vital Signs: Last Vital Signs Temp 96.8 F 08/25/23 08:00 Pulse 83 08/25/23 08:26 Resp 14 08/25/23 08:00 BP 134/79 08/25/23 08:27 Pulse Ox 98 08/25/23 08:00 O2 Del Method Room Air 08/25/23 08:00 BMI result Body Mass Index 31.2 Appearing in no acute distress lung sounds are clear to auscultation heart regular rate rhythm, clear S1, S2 positive bowel sounds, abdomen is soft, nontender neuro patient is alert x3, no focal deficits Objective Data Active Medications Acetaminophen (Acetaminophen 325 Mg Tablet) 650 mg PO Q6H PRN PRN Reason: Pain, Mild (Pain Scale 1-3), fever or headache Last Admin: 08/23/23 04:34 Dose: 650 mg Documented By: LUIS FELIPE Calcium Carbonate (Calcium Carbonate 750 Mg Tab.Chew) 750 mg PO Q4H PRN PRN Reason: Heartburn Cyanocobalamin (Cyanocobalamin (Vitamin B-12) 1,000 Mcg Tablet) 1,000 mcg PO DAILY [facility] Last Admin: 08/25/23 08:26 Dose: 1,000 mcg Documented By: TERI Enoxaparin Sodium (Enoxaparin Sodium 40 Mg/0.4 Ml Syringe) 40 mg SUBCUT Q24H [facility] Last Admin: 08/24/23 16:22 Dose: 40 mg Documented By: WARREN Famotidine (Famotidine/Pf 20 Mg/2 Ml Vial) 20 mg IVPUSH BID [facility] Last Admin: 08/25/23 08:26 Dose: 20 mg Documented By: TERI Fenofibrate (Fenofibrate 160 Mg Tablet) 160 mg PO DAILY [facility] Last Admin: 08/25/23 08:26 Dose: 160 mg Documented By: TERI Folic Acid (Folic Acid 1 Mg Tablet) 1 mg PO DAILY [facility] Last Admin: 08/25/23 08:26 Dose: 1 mg Documented By: TERI Glucose (Glucose Gel 15 Gm Gel..Gram.) 15 gm PO Q15M PRN; Protocol PRN Reason: per Hypoglycemia Standing Ord. Last Admin: 08/24/23 08:14 Dose: 15 gm Documented By: WARREN Glucose (Glucose Gel 15 Gm Gel..Gram.) 15 gm PO Q15M PRN; Protocol PRN Reason: per Hypoglycemia Standing Ord. Hydromorphone HCl (Hydromorphone Hcl 1 Mg/Ml Syringe) 1 mg IVPUSH Q2H PRN; Protocol PRN Reason: Pain, Severe (Pain Scale 7-10) Last Admin: 08/25/23 08:25 Dose: 1 mg Documented By: TERI Dextrose (D10) 250 mls @ 750 mls/hr IV Q15M PRN; Protocol PRN Reason: per Hypoglycemia Standing Ord. Lactated Ringer's (Lr) 1,000 mls @ 100 mls/hr IVCONT .Q10H [facility] Last Admin: 08/25/23 03:33 Dose: 100 mls/hr Documented By: JACKIE Insulin Glargine (Insulin Glargine,Hum.Rec.Anlog 100 Unit/Ml 10 Ml Vial) 18 unit SUBCUT DAILY [facility] Last Admin: 08/23/23 08:12 Dose: 18 unit Documented By: WARREN Insulin Human Lispro (Insulin Lispro 100 Unit/Ml 3 Ml Vial) 0 unit SUBCUT QIDACHS [facility]; Protocol Last Admin: 08/25/23 07:55 Dose: Not Given Documented By: TERI Non-Admin Reason: No Insulin Coverage Lisinopril (Lisinopril 10 Mg Tablet) 10 mg PO DAILY [facility]; Protocol Last Admin: 08/25/23 08:27 Dose: 10 mg Documented By: TERI Lorazepam (Lorazepam 2 Mg/Ml Vial) 0.5 mg IVPUSH Q6H PRN PRN Reason: Anxiety Last Admin: 08/24/23 18:44 Dose: 0.5 mg Documented By: WARREN Magnesium Hydroxide (Milk Of Magnesia 30 Ml Oral.Susp) 30 ml PO DAILY PRN PRN Reason: Constipation Melatonin (Melatonin 3 Mg Tablet) 6 mg PO BEDTIME PRN PRN Reason: Insomnia Last Admin: 08/23/23 20:48 Dose: 6 mg Documented By: LUIS FELIPE Metoprolol Succinate (Metoprolol Succinate Er 50 Mg Tab.Er.24h) 50 mg PO DAILY [facility]; Protocol Last Admin: 08/25/23 08:26 Dose: 50 mg Documented By: TERI Multivitamins/Vitamin C (Multivitamin Tablet) 1 tab PO DAILY [facility] Last Admin: 08/25/23 08:26 Dose: 1 tab Documented By: TERI Non-Formulary Medication (Etnuia-Ooobastg-Tzaqdrl [Creon]) 1 cap PO TIDWM [facility] Ondansetron HCl (Ondansetron Hcl 4 Mg/2 Ml Vial) 4 mg IVPUSH Q8H PRN PRN Reason: Nausea and Vomiting Last Admin: 08/23/23 05:07 Dose: 4 mg Documented By: LUIS FELIPE Oxycodone HCl (Oxycodone Hcl Immed Release 5 Mg Tablet) 5 mg PO Q4H PRN PRN Reason: Pain, Moderate(Pain Scale 4-6) Last Admin: 08/24/23 20:20 Dose: 5 mg Documented By: LUIS FELIPE Quetiapine Fumarate (Quetiapine Fumarate 300 Mg Tablet) 300 mg PO BEDTIME [facility] Last Admin: 08/24/23 20:21 Dose: 300 mg Documented By: LUIS FELIPE Sertraline HCl (Sertraline Hcl 100 Mg Tablet) 100 mg PO DAILY [facility] Last Admin: 08/25/23 08:26 Dose: 100 mg Documented By: TERI Sodium Chloride (0.9 % Sodium Chloride Flush 3 Ml Syringe) 3 ml IVFLUSH QSHIFT [facility] Last Admin: 08/25/23 06:58 Dose: Not Given Documented By: TERI Non-Admin Reason: IV Running Thiamine HCl (Thiamine Hcl 100 Mg Tablet) 100 mg PO DAILY [facility] Last Admin: 08/25/23 08:26 Dose: 100 mg Documented By: TERI Trazodone HCl (Trazodone Hcl 50 Mg Tablet) 150 mg PO BEDTIME [facility] Last Admin: 08/24/23 20:21 Dose: 150 mg Documented By: LUIS FELIPE Labs 08/23/23 05:21 08/24/23 05:47 Labs: Laboratory Results - last 24 hr 08/24/23 08/24/23 08/24/23 05:47 11:21 16:27 POC Glucose 180 H 179 H C-Reactive Protein 20.13 H 08/24/23 08/25/23 20:04 07:46 POC Glucose 118 H 140 H C-Reactive Protein Assessment and Plan (1) Acute pancreatitis: Status: Acute Plan 53-year-old male with history of alcohol use disorder, cocaine use disorder, insulin-dependent type 2 diabetes, hypertension, history of pancreatitis, and unspecified seizure disorder not on antiepileptic therapy admitted for management of acute pancreatitis Acute alcoholic pancreatitis lipase down 559>131 IV fluids wean down IV pain medications antiemetics p.r.n. IV pepcid clear liquids and advance diet as tolerated Severe hip pain orthopedic consult alcohol use disorder last drink 08/18, no evidence of acute withdrawal Monitor on ciwa po thiamine and folic acid counseled on cessation Cocaine use disorder declines addiction med consult counseled on cessation Insulin dependent type 2 diabetes with hypoglycemia poc, ss hold lantus HTN continue metoprolol Unspecified seizure disorder denies etoh withdrawal seizures, not on antiepilecptics monitor dvt prophylaxis- lovenox attending Dr. Oliver full code continue hospital stay for acute pancreatitis with intractable abd pain despite iv narcotics. Will require aggressive IVF, IV pain control and close monitoring of hemodynamics to monitor for and prevent decompensation Quality Stroke Does the patient have a stroke diagnosis?: No VTE Prior VTE?: No VTE Risk Level:: Medical - moderate - high VTE Device Contraindication: Treatment Not Indicated VTE Drug Contraindication: N/A - Med Ordered
[2023-08-25 11:41] LABS: Glucose, Whole Blood 134 mg/dL (60-115)
--- NOTE | 2023-08-25 13:01 | MHC.CM.PN ---
EMR REVIEWED AND PER MD ROUNDS, PT IS NOT MEDICALLY CLEARED FOR DC (ABDOMINAL PAIN, NAUSEA, ORTHO CONSULT FOR LEFT HIP PAIN PENDING) CM WILL CONTINUE TO FOLLOW FOR ANY CHANGE TO DC PLAN/NEEDS
--- NOTE | 2023-08-25 14:50 | PM.CNOR ---
History of Present Illness HPI Consult date: 08/25/23 Chief complaint: pancreatitis Narrative: Left hip pasin for which he is seeing me in office. I ordered an MRI and it showed moderate to severe left hip OA. I am not sure why he didn't follow up with me after MRI as I asked but he presents today with pancreatitis and left hip pain. He has difficulty ambulating. He feels the quality oif his life is diminished. [facility] Past Medical History Medical History Acromioclavicular joint arthritis Alcohol use disorder Cocaine abuse Alcohol withdrawal Duodenitis Diabetes mellitus Arthritis Alcohol abuse Cocaine abuse Seizures Hypertension Pancreatitis Family History Family History Other CAD (coronary artery disease) Diabetes mellitus Surgical History Surgical History H/O hernia repair Social History Social History Household Members: None Housing: Apartment Do you presently have visiting nurse or other home services: Yes (needing a new one, previous quit) Alcohol intake: never Comment: refuses fall risk precautions Patient Tobacco Use Status: Never used Tobacco e-Cigarette/Vaping Use: Never Used Second Hand Smoke Exposure: No Substance Use Type: Crack/Cocaine Advance Directives Date on File: 02/27/20 service: No Current occupational status: disabled Meds Allergies Allergy/AdvReac Type Severity Reaction Status Date / Time sildenafil [From Viagra] Allergy Unknown Verified 08/22/23 13:05 Active Medications: Current Medications Acetaminophen (Acetaminophen 325 Mg Tablet) 650 mg PO Q6H PRN PRN Reason: Pain, Mild (Pain Scale 1-3), fever or headache Last Admin: 08/23/23 04:34 Dose: 650 mg Calcium Carbonate (Calcium Carbonate 750 Mg Tab.Chew) 750 mg PO Q4H PRN PRN Reason: Heartburn Cyanocobalamin (Cyanocobalamin (Vitamin B-12) 1,000 Mcg Tablet) 1,000 mcg PO DAILY [facility] Last Admin: 08/25/23 08:26 Dose: 1,000 mcg Enoxaparin Sodium (Enoxaparin Sodium 40 Mg/0.4 Ml Syringe) 40 mg SUBCUT Q24H [facility] Last Admin: 08/24/23 16:22 Dose: 40 mg Famotidine (Famotidine/Pf 20 Mg/2 Ml Vial) 20 mg IVPUSH BID [facility] Last Admin: 08/25/23 08:26 Dose: 20 mg Fenofibrate (Fenofibrate 160 Mg Tablet) 160 mg PO DAILY [facility] Last Admin: 08/25/23 08:26 Dose: 160 mg Folic Acid (Folic Acid 1 Mg Tablet) 1 mg PO DAILY [facility] Last Admin: 08/25/23 08:26 Dose: 1 mg Glucose (Glucose Gel 15 Gm Gel..Gram.) 15 gm PO Q15M PRN; Protocol PRN Reason: per Hypoglycemia Standing Ord. Last Admin: 08/24/23 08:14 Dose: 15 gm Glucose (Glucose Gel 15 Gm Gel..Gram.) 15 gm PO Q15M PRN; Protocol PRN Reason: per Hypoglycemia Standing Ord. Hydromorphone HCl (Hydromorphone Hcl 1 Mg/Ml Syringe) 1 mg IVPUSH Q3H PRN; Protocol PRN Reason: Pain, Severe (Pain Scale 7-10) Dextrose (D10) 250 mls @ 750 mls/hr IV Q15M PRN; Protocol PRN Reason: per Hypoglycemia Standing Ord. Lactated Ringer's (Lr) 1,000 mls @ 100 mls/hr IVCONT .Q10H [facility] Last Admin: 08/25/23 11:46 Dose: 100 mls/hr Insulin Glargine (Insulin Glargine,Hum.Rec.Anlog 100 Unit/Ml 10 Ml Vial) 18 unit SUBCUT DAILY [facility] Last Admin: 08/23/23 08:12 Dose: 18 unit Insulin Human Lispro (Insulin Lispro 100 Unit/Ml 3 Ml Vial) 0 unit SUBCUT QIDACHS [facility]; Protocol Last Admin: 08/25/23 11:42 Dose: Not Given Lisinopril (Lisinopril 10 Mg Tablet) 10 mg PO DAILY [facility]; Protocol Last Admin: 08/25/23 08:27 Dose: 10 mg Lorazepam (Lorazepam 2 Mg/Ml Vial) 0.5 mg IVPUSH Q6H PRN PRN Reason: Anxiety Last Admin: 08/24/23 18:44 Dose: 0.5 mg Magnesium Hydroxide (Milk Of Magnesia 30 Ml Oral.Susp) 30 ml PO DAILY PRN PRN Reason: Constipation Melatonin (Melatonin 3 Mg Tablet) 6 mg PO BEDTIME PRN PRN Reason: Insomnia Last Admin: 08/23/23 20:48 Dose: 6 mg Metoprolol Succinate (Metoprolol Succinate Er 50 Mg Tab.Er.24h) 50 mg PO DAILY [facility]; Protocol Last Admin: 08/25/23 08:26 Dose: 50 mg Multivitamins/Vitamin C (Multivitamin Tablet) 1 tab PO DAILY [facility] Last Admin: 08/25/23 08:26 Dose: 1 tab Non-Formulary Medication (Nzgxij-Lavgtkux-Uxqhyxs [Creon]) 1 cap PO TIDWM [facility] Ondansetron HCl (Ondansetron Hcl 4 Mg/2 Ml Vial) 4 mg IVPUSH Q8H PRN PRN Reason: Nausea and Vomiting Last Admin: 08/23/23 05:07 Dose: 4 mg Oxycodone HCl (Oxycodone Hcl Immed Release 5 Mg Tablet) 5 mg PO Q4H PRN PRN Reason: Pain, Moderate(Pain Scale 4-6) Last Admin: 08/24/23 20:20 Dose: 5 mg Quetiapine Fumarate (Quetiapine Fumarate 300 Mg Tablet) 300 mg PO BEDTIME [facility] Last Admin: 08/24/23 20:21 Dose: 300 mg Sertraline HCl (Sertraline Hcl 100 Mg Tablet) 100 mg PO DAILY [facility] Last Admin: 08/25/23 08:26 Dose: 100 mg Sodium Chloride (0.9 % Sodium Chloride Flush 3 Ml Syringe) 3 [facility] Last Admin: 08/25/23 14:38 Dose: Not Given Thiamine HCl (Thiamine Hcl 100 Mg Tablet) 100 mg PO DAILY [facility] Last Admin: 08/25/23 08:26 Dose: 100 mg Trazodone HCl (Trazodone Hcl 50 Mg Tablet) 150 mg PO BEDTIME [facility] Last Admin: 08/24/23 20:21 Dose: 150 mg Home Medications ?Medication ?Instructions ?Recorded ?Confirmed ?Last Taken ?Type quetiapine 300 mg tablet 300 mg PO BEDTIME 02/27/20 08/22/23 08/22/23 History trazodone 150 mg tablet 150 mg PO BEDTIME 02/27/20 08/22/23 08/22/23 History sertraline 100 mg tablet 1 tab PO DAILY 06/23/21 08/22/23 08/22/23 History metoprolol succinate 50 mg 50 mg PO DAILY 08/10/22 08/22/23 08/22/23 History tablet,extended release 24 hr cyanocobalamin (vitamin B-12) 1,000 mcg PO DAILY 03/10/23 08/22/23 08/22/23 History 1,000 mcg tablet empagliflozin 25 mg tablet 25 mg PO DAILY 03/10/23 08/22/23 08/22/23 History (Jardiance) famotidine 20 mg tablet 20 mg PO DAILY 08/22/23 08/22/23 08/22/23 History fenofibrate nanocrystallized 145 145 mg PO DAILY 08/22/23 08/22/23 08/22/23 History mg tablet insulin glargine 100 unit/mL (3 25 unit subcut DAILY 08/22/23 08/22/23 08/22/23 History mL) subcutaneous pen (Lantus Solostar U-100 Insulin) vyekrw-rpmhmoxf-brjvnyf 1 cap PO TID 08/22/23 08/22/23 08/22/23 History 3,000-9,500-15,000 unit capsule, delayed rel (Creon) lisinopril 10 mg tablet 10 mg PO DAILY 08/22/23 08/22/23 08/22/23 History meloxicam 15 mg tablet 15 mg PO DAILY PRN pain 08/22/23 08/22/23 Unknown History xojnojhx-dc-kaxpu 300 mcg-K 60 1 tab PO DAILY 08/22/23 08/22/23 08/22/23 History mcg-lycop 600 mcg-lutein 300 mcg tablet (Centrum [facility]) thiamine HCl (vitamin B1) 100 mg 100 mg PO DAILY 08/22/23 08/22/23 08/22/23 History tablet Physical Exam Vital Signs: Vital Signs: Last Vital Signs Temp 96.8 F 08/25/23 08:00 Pulse 83 08/25/23 08:26 Resp 14 08/25/23 08:00 BP 134/79 08/25/23 08:27 Pulse Ox 98 08/25/23 08:00 O2 Del Method Room Air 08/25/23 08:00 BMI result Body Mass Index 31.2 Extrem: Other: Left groin puma nwith hip ROM + impingenent test Results Labs 08/23/23 05:21 08/24/23 05:47 Labs: Abnormal lab results 08/24/23 08/24/23 08/24/23 Range/Units 05:47 16:27 20:04 POC Glucose 179 H 118 H (60-115) mg/dL C-Reactive Protein 20.13 H (< or = 0.50) mg/dL 08/25/23 08/25/23 Range/Units 07:46 11:34 POC Glucose 140 H 134 H (60-115) mg/dL C-Reactive Protein (< or = 0.50) mg/dL H & H 08/22/23 08/23/23 Range/Units 13:25 05:21 Hgb 13.5 L 13.2 L (14.0-18.0) g/dl Hct 38.7 L 37.9 L (42.0-52.0) % All other labs normal. Diagnostic results Hip MRI: image reviewed (1. Moderate left hip osteoarthritis with a small joint effusion and moderate synovitis. 2. Diffuse complex degenerative tearing throughout the anterosuperior labrum. 3. No stress reaction, fracture, or avascular necrosis. 4. Right hip arthroplasty without evidence of hardware complication. 5) Assessment and Plan (1) Osteoarthritis of left hip: Status: Acute Plan Left hip OA with substance abuse history and acute pancreatitis. I discussed treatment options and he would like to discuss arthroplasty further. I recommend he do this in my office when he is out of the hospital. He will plan on this. No acute intervention warranted. May continue NSAIDs if tolerated. Procedures Date of Service Date of Service: 08/25/23
[2023-08-25 15:10] VITALS: BP 145/92; PULSE 77; RESP 18; TEMP 36.3; O2SAT 96
[2023-08-25 16:17] LABS: Glucose, Whole Blood 139 mg/dL (60-115)
[2023-08-25] MEDS: Enoxaparin Sodium 40 MG/0.4 ML SYRINGE SUBCUT (16:52)
[2023-08-25 19:06] VITALS: BP 145/87; PULSE 84; RESP 18; TEMP 36.2; O2SAT 99
[2023-08-25] MEDS: 0.9 % Sodium Chloride Flush 3 ML SYRINGE IVFLUSH (19:19)
[2023-08-25 19:59] LABS: Glucose, Whole Blood 145 mg/dL (60-115)
[2023-08-25] MEDS: QUEtiapine Fumarate 300 MG TABLET PO (21:26)
[2023-08-25] MEDS: traZODone HCL 50 MG TABLET 150 MG PO (21:26)
[2023-08-25] MEDS: oxyCODONE HCl Immed Release 5 MG TABLET PO (23:46)
[2023-08-26 04:00] VITALS: BP 171/81; PULSE 79; RESP 18; TEMP 36; O2SAT 98
--- NOTE | 2023-08-26 04:01 | PC.NURSE ---
Pt is AOx3, able to make his needs known. Pt sets an alarm for PRN pain medications, he tells RN to bring in PRN meds earlier and is reminded and re-educated about what PRN meds are. ABD remains distended. He c/o 10/10 pain in ABD, back and left hip. He can ambulate to the bathroom independently. He is tolerating a clear liquid diet. His CIWAs have been zero this shift. Lantus remains on hold d/t hypogylcemia. Call lal within reach.
[2023-08-26] MEDS: HYDROmorphone HCl 1 MG/ML SYRINGE IVPUSH ×2 (05:09→08:45)
[2023-08-26 06:12] LABS: Anion Gap 17 (12-20); Blood Urea Nitrogen 5 mg/dL (9-16); Calcium 10.2 mg/dL (8.4-10.2); Carbon Dioxide 25 mmol/L (22-29); Chloride 102 mmol/L (96-108); Creatinine Clr Calc Pharmacy 104.1; Estimated Glomerular Filt Rate > 60; Glucose Random 124 mg/dL (60-115); Lipase 127 U/L (8-78); Potassium 3.8 mmol/L (3.3-5.1); Sodium 140 mmol/L (135-145)
[2023-08-26 07:58] VITALS: BP 149/94; PULSE 71; RESP 16; TEMP 36; O2SAT 96
[2023-08-26 07:59] LABS: Glucose, Whole Blood 140 mg/dL (60-115)
[2023-08-26] MEDS: Thiamine HCL 100 MG TABLET PO (08:46)
[2023-08-26] MEDS: Multivitamin TABLET 1 TAB PO (08:46)
[2023-08-26] MEDS: Fenofibrate 160 MG TABLET PO (08:46)
[2023-08-26] MEDS: lisinopriL 10 MG TABLET PO (08:46)
[2023-08-26] MEDS: Sertraline HCL 100 MG TABLET PO (08:46)
[2023-08-26] MEDS: Cyanocobalamin (Vitamin B-12) 1,000 MCG TABLET 1000 MCG PO (08:46)
[2023-08-26] MEDS: Folic Acid 1 MG TABLET PO (08:46)
[2023-08-26] MEDS: Metoprolol Succinate ER 50 MG TAB.ER.24H PO (08:46)
[2023-08-26] MEDS: Lactated Ringers 1,000 ML 100 ML IVCONT (08:49)
--- NOTE | 2023-08-26 09:21 | PM.DS ---
DS: Providers Provider Date of Service: 08/26/23 Date of admission: 08/22/23 18:06 Primary care physician: Ruma Gilbert MD Consults: 08/25/23 09:36 Consult to Orthopedics Routine Consulting Provider: [facility] [place] [facility] Reason for consultation: severe left hip pain DS: Diagnosis Discharge Diagnosis (1) Osteoarthritis of left hip: Status: Acute DS: Summary Hospital Course Hospital Course: History and physical as per admitting provider. 53-year-old male with history of alcohol use disorder, cocaine use disorder, insulin-dependent type 2 diabetes, hypertension, history of pancreatitis, and unspecified seizure disorder not on antiepileptic therapy presented to the ED earlier today for evaluation of epigastric abdominal pain radiating to the back bilaterally that started last night. He reports initially a 10/10 pain that did improve with IV hydromorphone, but is now increased again to 9/10. No associated nausea or vomiting. No fevers chills, diarrhea, melena, hematochezia, lightheadedness, shortness of breath, chest pain. He does report that he has been drinking alcohol on a more frequent basis related to depression due to chronic pain and housing issues. He states that his last alcohol consumption was on 08/18 a consumed greater than 10 beers. He reports his last cocaine use was weeks ago and reports inhaled use only. Denies cigarette smoking. He has had pancreatitis in the past and reports feels similar. Since arrival, patient hemodynamically stable, mildly hypertensive to 152/77. There is no leukocytosis. Renal function and electrolyte levels normal. Glucose 146. Hepatic function within normal limits. Lipase 347. Ethyl alcohol level undetectable CT abdomen pelvis shows pancreatitis with peripancreatic stranding, no pseudocysts or drainable fluid. In the ED, received 1 mg hydromorphone, ondansetron, 1 L IV fluids. Will be admitted for further management of acute pancreatitis. 53-year-old man treated for acute alcoholic pancreatitis. Initially was 550 and trended down to 100 and 31, treated with aggressive IV fluid hydration, IV pain medications, antiemetics, IV Pepcid. He was on clear liquid diet and advanced to regular and did well. He was encouraged to stop drinking alcohol but he reported that at this point he is not going to stop drinking he stated its not gonna happen . He was monitored on [place] and did not show any evidence of acute alcohol withdrawal. He should continue his thiamine and folic acid outpatient. Plan is for discharge home with a few days of narcotic pain medication and antiemetic. Of note when patient was told that he was leaving he became irate and began threatening staff with getting a energy and conservation technician if he had to come back to the hospital and he was attempting to remove his IV on his own. He had been getting IV dilaudid 1mg every 2 hours on the dot, for 4 days and then stated the he was having back pain, abd ct done 08/24/23 showed degenerative changes of the spine. He had been ambulating and sitting up throughout the days he has been here. Lipase is near normal and abd ct showed improvement in pancreatitis and in fact, he stated this morning that his abdominal pain was gone. Security was called to the floor for staff safety. Patient was offered transportation but stated that he would have a friend come pick him up. Patient was told to return to the ED for any worsening symptoms including return of abdominal pain, vomiting, fever. Substance abuse. Counseled on cessation Diabetes mellitus type 2. Continue home medications Hypertension. Continue metoprolol Unspecified seizure disorder. Not on any antiepileptics, no seizure during hospitalization Left hip pain. Seen and evaluated by Orthopedic surgery, plan for outpatient follow-up to discuss options for surgical procedures Time Attestation Discharge Coordination Time (in mins): 35 Quality: Safe Use of Opioids Does Pt have an Active Cancer Diagnosis on the Problem List?: No Quality: Stroke Does the patient have a stroke diagnosis?: No Physical Exam Vital Signs: Vital Signs: Last Vital Signs Temp 96.8 F 08/26/23 07:58 Pulse 71 08/26/23 07:58 Resp 16 08/26/23 07:58 BP 149/94 H 08/26/23 07:58 Pulse Ox 96 08/26/23 07:58 O2 Del Method Room Air 08/26/23 07:58 BMI result Body Mass Index 31.2 Appearing in no acute distress head is normocephalic atraumatic eyes pupils are PERRLA sclera is anicteric mouth throat mucous membranes are intact and moist neck is supple no lymphadenopathy, no JVD noted lung sounds are clear to auscultation heart regular rate rhythm, clear S1, S2 positive bowel sounds, abdomen is soft, nontender neuro patient is alert x3, no focal deficits DS: Data Data Completed and Pending Completed studies during hospitalization [Text1]: Procedures Detoxification Services for Substance Abuse Treatment (01/30/22) Labs on day of discharge: Laboratory Results - last 24 hr 08/25/23 08/25/23 08/25/23 11:34 16:14 19:56 Hold Purple Top Sodium Potassium Chloride Carbon Dioxide Anion Gap BUN Creatinine Estim Creat Clear Calc Estimated GFR POC Glucose 134 H 139 H 145 H Random Glucose Calcium Lipase 08/26/23 08/26/23 05:16 07:55 Hold Purple Top SEE NOTE Sodium 140 Potassium 3.8 Chloride 102 Carbon Dioxide 25 Anion Gap 17 BUN 5 L Creatinine 0.86 Estim Creat Clear Calc 104.1 Estimated GFR > 60 POC Glucose 140 H Random Glucose 124 H Calcium 10.2 D Lipase 127 H Discharge Plan Discharge Anticipated Discharge Date/Time: 08/26/23 08:09 Patient Disposition: Home, Self-Care Discharge Diagnosis: Acute pancreatitis Referrals: Ruma Gilbert MD [Primary Care Provider] - 1 Week Kishan Mayorga MD [Physician] - 1 Week (Hip pain) Discharge Medications: New oxycodone 5 mg Tablet 5 mg PO Q4H PRN (Reason: Pain, Moderate(Pain Scale 4-6)) Qty: 30 0RF Rx Instructions: Partial Fill upon patient request. ondansetron 4 mg tablet,disintegrating 4 mg PO Q8H PRN (Reason: nausea and vomiting) Qty: 12 0RF Continued quetiapine 300 mg tablet 300 mg PO BEDTIME trazodone 150 mg tablet 150 mg PO BEDTIME sertraline 100 mg tablet 1 tab PO DAILY Jardiance 25 mg tablet 25 mg PO DAILY cyanocobalamin (vitamin B-12) 1,000 mcg Tablet 1,000 mcg PO DAILY metoprolol succinate 50 mg tablet extended release 24 hr 50 mg PO DAILY meloxicam 15 mg tablet 15 mg PO DAILY PRN (Reason: pain) thiamine HCl (vitamin B1) 100 mg tablet 100 mg PO DAILY lisinopril 10 mg tablet 10 mg PO DAILY fenofibrate nanocrystallized 145 mg tablet 145 mg PO DAILY insulin glargine [Lantus Solostar U-100 Insulin] 100 unit/mL (3 mL) insulin pen 25 unit subcut DAILY Creon 3,000-9,500- 15,000 unit capsule,delayed release(DR/EC) 1 cap PO TID famotidine 20 mg tablet 20 mg PO DAILY Centrum Silver Men [id number] mcg Tablet 1 tab PO DAILY Discharge Orders: Discharge Order (Routine); Ordered 08/26/23 Ordered By: Windy Grady Diet: Advance to usual diet Activity on Discharge: As tolerated Stand Alone Forms: Patient Portal Discharge page Print Language: Upper Sorbian Care Plan Goals: Avoid Drinking alcohol to avoid further episodes of pancreatitis Drink plenty of fluids, eat bland foods for the next several days Health Concerns: Acute Pancreatitis Plan of Treatment: Follow-up with primary care provider as needed Follow-up with orthopedic surgery office for hip pain Take all medications as prescribed Assessment: See discharge summary Discharge Date/Time: 08/26/23 12:02
[2023-08-26 11:51] LABS: Glucose, Whole Blood 137 mg/dL (60-115)
--- NOTE | 2023-08-26 12:59 | MHC.CM.PN ---
PT WILL DC HOME TODAY WITH NO SERVICES PT ARRANGED HIS OWN TRANSPORT
== END 2023-08-26 12:02 | disposition home or self-care (01) | DRG 440 ==
LOC: HO.ED 16:51 → HO.EDOVER 17:49 → HO.S3 19:36
PROVIDERS: Emergency Medicine; Internal Medicine; Physician Assistant Medical; Admitting Provider Physician Assistant; Emergency Provider Physician Assistant; PCP Internal Medicine; Visit Provider Nurse Practitioner Acute Care
DX: K85.20 Alcohol induced acute pancreatitis without necrosis or infection (principal); G40.909 Epilepsy, unspecified, not intractable, without status epilepticus; F14.10 Cocaine abuse, uncomplicated; M16.12 Unilateral primary osteoarthritis, left hip; E11.9 Type 2 diabetes mellitus without complications; I10 Essential (primary) hypertension; F10.10 Alcohol abuse, uncomplicated; Z71.41 Alcohol abuse counseling and surveillance of alcoholic; Z71.51 Drug abuse counseling and surveillance of drug abuser; Z79.4 Long term (current) use of insulin; Z79.899 Other long term (current) drug therapy
CPT/HCPCS: 36415; 74176; 74177; 80048; 80053; 80307; 82248; 82947; 83690; 84478; 84484; 85025; 86140; 93005; 99285; J1170; J1650; J2060; J2405; J7120; Q9967

== ENCOUNTER → 2023-08-22 14:25 | Outpatient (BNV) | payer OTHER, SELFPAY | PROVIDERS: Admitting Provider Physician Assistant; Emergency Provider Physician Assistant; PCP Internal Medicine; Visit Provider Internal Medicine Cardiovascular Disease | DX: R10.9 Unspecified abdominal pain (principal) | CPT/HCPCS: 93010 ==

== ENCOUNTER → 2023-08-22 18:06 | Outpatient (BNV) | payer OTHER, SELFPAY | PROVIDERS: Admitting Provider Physician Assistant; Emergency Provider Physician Assistant; PCP Internal Medicine; Visit Provider Nurse Practitioner Acute Care | DX: K85.20 Alcohol induced acute pancreatitis without necrosis or infection (principal) | CPT/HCPCS: 99223; 99232; 99239 ==

== ENCOUNTER → 2023-08-22 18:06 | Outpatient (BNV) | payer OTHER, SELFPAY | PROVIDERS: Admitting Provider Physician Assistant; Emergency Provider Physician Assistant; PCP Internal Medicine; Visit Provider Orthopaedic Surgery | DX: M16.12 Unilateral primary osteoarthritis, left hip (principal) | CPT/HCPCS: 99222 ==

== ENCOUNTER 2023-09-17 11:04 | Outpatient (AMB) | payer OTHER, SELFPAY ==
--- NOTE | 2023-09-17 11:20 | MHC.OFFVIS ---
Vital Signs 09/17/23 11:28 Height 5 ft 8 in Weight 186 lb BMI 28.3 Intake Visit Reasons: OV- Discuss Left AGNES Intake Note: Maico is a 53 year old male who presents today for a follow up appointment of his left hip to discuss Left AGNES. He was recently admitted to [facility] ED due to acute pancreatitis Allergies sildenafil [From Viagra] Allergy (Verified 08/22/23 13:05) Unknown HPI HPI OV- Discuss Left AGNES: Details: Maico is a 53 year old male who presents today for a follow up appointment of his left hip to discuss Left AGNES. He was recently admitted to [facility] ED due to acute pancreatitis He contineus to have left groin pain. He had a right TA 7 years ago and did well. He ants to have a left hip replaced. He states he has stopped drinking. He feels the quality of his life is compromised. COUNTS INCLUDE 234 BEDS AT THE [facility] Medical History Osteoarthritis of left hip Acromioclavicular joint arthritis Alcohol use disorder Cocaine abuse Alcohol withdrawal Duodenitis Diabetes mellitus Arthritis Alcohol abuse Cocaine abuse Seizures Hypertension Pancreatitis Surgical History H/O hernia repair Family History Other CAD (coronary artery disease) Diabetes mellitus Social History Household Members: None Housing: Apartment Do you presently have visiting nurse or other home services: Yes (needing a new one, previous quit) Alcohol intake: never Comment: refuses fall risk precautions Patient Tobacco Use Status: Never used Tobacco e-Cigarette/Vaping Use: Never Used Second Hand Smoke Exposure: No Substance Use Type: Crack/Cocaine Advance Directives Date on File: 02/27/20 service: No Current occupational status: disabled Physical Exam Vital Signs: BMI result Body Mass Index 28.3 Extrem Other: + impingement left hip + trendelenberg left hip Results Reviewed Results Reviewed: I personally reviewed relevant radiographs. Moderate left hip OA Assessment & Plan Assessment & Plan (1) Primary osteoarthritis of left hip: Code(s): M16.12 - Unilateral primary osteoarthritis, left hip Category: Medical Plan: This is a 53 yo with left hip OA. He had a successful AGNES on the right in 2018. I have discussed left AGNES with him and explained my reservations regarding his occasional use of cocaine nad his drinking history. He states this is under control. I think AGNES would be reasonable with medical clearance and with negative drug screening fro 6 mo. I discussed this with him and he is amenable to the plan. We will follow up in 3 months. Coding Level of Care Code Est Pt Level 4 (89012) Diagnoses Primary osteoarthritis of left hip M16.12
[2023-09-17 11:28] VITALS: BMI 28.3
== END 2023-09-17 12:09 | disposition home or self-care (01) ==
PROVIDERS: PCP Internal Medicine; Visit Provider Orthopaedic Surgery
DX: M16.12 Unilateral primary osteoarthritis, left hip (principal)
CPT/HCPCS: 99214

== ENCOUNTER → 2023-09-17 11:04 | Outpatient (BNVA) | payer OTHER, SELFPAY | PROVIDERS: PCP Internal Medicine; Visit Provider Orthopaedic Surgery | DX: M16.12 Unilateral primary osteoarthritis, left hip (principal) | CPT/HCPCS: 99212 ==

== ENCOUNTER 2023-12-28 09:10 | Outpatient (REF) | payer OTHER, SELFPAY | END 2023-12-28 09:11 | disposition home or self-care (01) | LOC: HO.LAB 09:10 | PROVIDERS: PCP Internal Medicine; Visit Provider Orthopaedic Surgery | DX: Z13.89 Encounter for screening for other disorder (principal) ==

== ENCOUNTER 2024-01-10 09:20 | Outpatient (REF) | payer OTHER, SELFPAY ==
[2024-01-10 12:16] LABS: Amphetamine Screen Urine Not Detected (Not Detect); Barbiturates, Urine Not Detected (Not Detect); Benzodiazepines Screen Urine Not Detected (Not Detect); Buprenorphine Scr Not Detected (Not Detect); Cannabinoid Screen Urine Not Detected (Not Detect); Cocaine Screen Urine Not Detected (Not Detect); Fentanyl, urine Not Detected (Not Detect); Methadone Screen, Urine Not Detected (Not Detect); Opiate Screen Urine Not Detected (Not Detect); Oxycodone Screen Urine Not Detected (Not Detect); Phencyclidine Screen Urine Not Detected (Not Detect)
== END 2024-01-10 09:21 | disposition home or self-care (01) ==
LOC: HO.LAB 09:20
PROVIDERS: PCP Internal Medicine; Visit Provider Orthopaedic Surgery
DX: F14.10 Cocaine abuse, uncomplicated (principal)
CPT/HCPCS: 80307

== ENCOUNTER 2024-01-21 10:04 | Outpatient (REF) | payer OTHER, SELFPAY | END 2024-01-21 10:05 | disposition home or self-care (01) | LOC: HO.HOSX 10:04 | PROVIDERS: Visit Provider Orthopaedic Surgery | DX: M25.559 Pain in unspecified hip (principal); M16.12 Unilateral primary osteoarthritis, left hip | CPT/HCPCS: 72170; 99212 ==

== ENCOUNTER 2024-01-21 10:52 | Outpatient (AMB) | payer OTHER, SELFPAY ==
[2024-01-21 11:07] VITALS: BMI 28.3
--- NOTE | 2024-01-21 11:07 | MHC.OFFVIS ---
Vital Signs 01/21/24 11:07 Height 5 ft 8 in Weight 186 lb BMI 28.3 Intake Visit Reasons: O - Left Hip OA Intake Note: Maico is a 53 year old male who presents today for a follow up appointment of his left hip. At his last visit it was discussed that there were concerns over drug and alcohol history of which patient states he has in control. AGNES would be reasonable with medical clearance and negative drug screens for 6 months. This plan was discussed with patient who did not complete any of his drug screens as discussed. Lack of compliance including no show drug screens deems his as an inappropriate surgical candidate. Allergies sildenafil [From Viagra] Allergy (Verified 01/21/24 11:07) Unknown HPI HPI O - Left Hip OA: Details: Maico is a 53 year old male who presents today for a follow up appointment of his left hip. At his last visit it was discussed that there were concerns over drug and alcohol history of which patient states he has in control. AGNES would be reasonable with medical clearance and negative drug screens for 6 months. This plan was discussed with patient who did not complete any of his drug screens as discussed. Lack of compliance including no show drug screens deems his as an inappropriate surgical candidate. He has been off drugs and very moderate alcohol use an attending meetings. He is doing better still has left hip pain. [facility] Medical History Osteoarthritis of left hip Acromioclavicular joint arthritis Alcohol use disorder Cocaine abuse Alcohol withdrawal Duodenitis Diabetes mellitus Arthritis Alcohol abuse Cocaine abuse Seizures Hypertension Pancreatitis Surgical History H/O hernia repair Family History Other CAD (coronary artery disease) Diabetes mellitus Social History Household Members: None Housing: Apartment Do you presently have visiting nurse or other home services: Yes (needing a new one, previous quit) Alcohol intake: never Comment: refuses fall risk precautions Patient Tobacco Use Status: Never used Tobacco e-Cigarette/Vaping Use: Never Used Second Hand Smoke Exposure: No Substance Use Type: Crack/Cocaine Advance Directives Date on File: 02/27/20 service: No Current occupational status: disabled Physical Exam Vital Signs: BMI result Body Mass Index 28.3 Extrem Other: + impingement left hip + trendelenberg left hip Assessment & Plan Assessment & Plan (1) Primary osteoarthritis of left hip: Code(s): M16.12 - Unilateral primary osteoarthritis, left hip Category: Medical Plan: Continued left hip pain with left hip osteoarthritis. He is improving and his overall health and drug use of become much better managed. Like see him back in 3 months. At this time no intervention warranted. Orders: Orders XR pelvis 1-2V 01/21/24 M25.559 - Pain in unspecified hip Coding Level of Care Code Est Pt Level 3 (07117) Diagnoses Primary osteoarthritis of left hip M16.12
== END 2024-01-21 11:27 | disposition home or self-care (01) ==
PROVIDERS: PCP Internal Medicine; Visit Provider Orthopaedic Surgery
DX: M16.12 Unilateral primary osteoarthritis, left hip (principal)
CPT/HCPCS: 99213

== ENCOUNTER 2024-03-14 15:07 | Emergency (ER) | payer OTHER, SELFPAY ==
--- NOTE | ~2024-03-14 | XR_ITS ---
CLINICAL HISTORY: pain 3 view, pelvis and left hip Comparison: DX/SR - XR PELVIS 1-2V - 01/21/24 10:56 EST Findings: Four films were obtained. Stable moderate narrowing and degenerative spurring in the left acetabulofemoral joint. Right total hip arthroplasty with intact hardware and satisfactory alignment. No periprosthetic lucency to suggest loosening. No acute fracture or dislocation. Stable heterotopic ossifications in the right hip. Extensive arterial calcifications. Calcified vas deferens can be seen with diabetes mellitus. Pelvic herniorrhaphy changes. IMPRESSION: 1. No acute fracture or dislocation. 2. No visible hardware complications. This document has been electronically signed by: Anabel Ordoñez DO on 03/14/2024 18:24:44
[2024-03-14 15:14] VITALS: BP 136/86; PULSE 80; O2SAT 98
[2024-03-14 15:21] VITALS: BP 123/72; PULSE 74; RESP 18; TEMP 37.1; O2SAT 94; BMI 28.0
[2024-03-14 15:41] VITALS: BP 123/72; PULSE 74; RESP 18; TEMP 37.1; O2SAT 94
--- NOTE | 2024-03-14 15:43 | ECG_ITS ---
Test Reason : prolonged qtc Blood Pressure : */* mmHG Vent. Rate : 73 BPM Atrial Rate : 73 BPM P-R Int : 188 ms QRS Dur : 92 ms QT Int : 408 ms P-R-T Axes : 46 6 26 degrees QTcB Int : 449 ms Normal sinus rhythm Normal ECG When compared with ECG of 22-Aug-2023 14:25, No significant change was found Referred By: Lucy Lechuga Electronically Signed By: PATRICIA MOTLEY
--- NOTE | 2024-03-14 15:45 | ED.PSYCH ---
HPI - Psych General Chief Complaint: Psychiatric Symptoms Stated Complaint: WEAK,PAIN, ETOH USE,SI PER EMS Time Seen by Provider: 03/14/24 15:24 History of Present Illness HPI Narrative: Patient 54-year-old male with a history of chronic left hip pain. Due for hip replacement in approximately 2 months. Denies any bowel or urinary incontinence. Complaining of pain that is still there. Got very frustrated. Had thoughts about ending his life. Did not have any specific plan. He did drink about 80 oz of beer. Patient subsequently called EMS and was sent to the ED for further evaluation. There is no new weakness. There is pain localized to the area. Related Data Home Medications ?Medication ?Instructions ?Recorded ?Confirmed quetiapine 300 mg tablet 300 mg PO BEDTIME 02/27/20 08/22/23 trazodone 150 mg tablet 150 mg PO BEDTIME 02/27/20 08/22/23 sertraline 100 mg tablet 1 tab PO DAILY 06/23/21 08/22/23 metoprolol succinate 50 mg 50 mg PO DAILY 08/10/22 08/22/23 tablet,extended release 24 hr cyanocobalamin (vitamin B-12) 1,000 mcg PO DAILY 03/10/23 08/22/23 1,000 mcg tablet empagliflozin 25 mg tablet 25 mg PO DAILY 03/10/23 08/22/23 (Jardiance) famotidine 20 mg tablet 20 mg PO DAILY 08/22/23 08/22/23 fenofibrate nanocrystallized 145 145 mg PO DAILY 08/22/23 08/22/23 mg tablet insulin glargine 100 unit/mL (3 25 unit subcut DAILY 08/22/23 08/22/23 mL) subcutaneous pen (Lantus Solostar U-100 Insulin) [id number] 1 cap PO TID 08/22/23 08/22/23 3,000-9,500-15,000 unit capsule, delayed rel (Creon) lisinopril 10 mg tablet 10 mg PO DAILY 08/22/23 08/22/23 meloxicam 15 mg tablet 15 mg PO DAILY PRN pain 08/22/23 08/22/23 [id number] 300 mcg-K 60 1 tab PO DAILY 08/22/23 08/22/23 mcg-lycop 600 mcg-lutein 300 mcg tablet (Centrum Silver Men) thiamine HCl (vitamin B1) 100 mg 100 mg PO DAILY 08/22/23 08/22/23 tablet Previous Rx's ?Medication ?Instructions ?Recorded ondansetron 4 mg disintegrating 4 mg PO Q8H PRN nausea and 08/26/23 tablet vomiting #12 tabs Allergies Allergy/AdvReac Type Severity Reaction Status Date / Time sildenafil [From Viagra] Allergy Unknown Verified 03/14/24 15:24 Review of Systems Review of Systems: No fever no chills Yes all other systems are reviewed and are negative REPLACED BY [facility] Past Medical History Attestation statement: The following information was validated with the patient. Medical History Osteoarthritis of left hip Acromioclavicular joint arthritis Alcohol use disorder Cocaine abuse Alcohol withdrawal Duodenitis Diabetes mellitus Arthritis Alcohol abuse Cocaine abuse Seizures Hypertension Pancreatitis Surgical History H/O hernia repair Family History Family History Other CAD (coronary artery disease) Diabetes mellitus Social History Social History Household Members: None Housing: Apartment Do you presently have visiting nurse or other home services: Yes (needing a new one, previous quit) Alcohol intake: never Comment: refuses fall risk precautions Patient Tobacco Use Status: Never used Tobacco e-Cigarette/Vaping Use: Never Used Second Hand Smoke Exposure: No Substance Use Type: Crack/Cocaine Advance Directives Date on File: 02/27/20 Do you have a plan to hurt others: No Plan service: No Current occupational status: disabled Physical Exam Vital Signs: Vital Signs: Last Vital Signs Temp 98.7 F 03/14/24 15:21 Pulse 74 03/14/24 15:21 Resp 18 03/14/24 15:21 BP 123/72 03/14/24 15:21 Pulse Ox 94 03/14/24 15:21 O2 Del Method Room Air 03/14/24 15:21 BMI result Body Mass Index 28.0 Appearance: Alert. Oriented X3. No acute distress. Eyes: Pupils equal, round and reactive to light. ENT: Pharynx normal. Neck: Normal inspection. Neck supple. No lymph nodes noted. No crepitus CVS: Normal heart rate and rhythm. Pulses normal. Normal S1 and S2 Respiratory: No respiratory distress. Breath sounds normal. No Wheezing. No rales Abdomen: Soft and nontender. No rigidity. No distention. good BS x4 Skin: Skin warm and dry. Normal skin color. Normal skin turgor. Extremities: Positive pain on movement of the left hip. Range of motion still intact. But moving beyond approximately 50 degrees there is increased pain. Distal pulses intact sensation intact skin intact. Neuro: Oriented X 3. No motor deficit. No sensory deficit. Moving all extermities. No slurred speech. Cranial nerves intact Medical Decision Making Medical Decision Making MDM Narrative: Well-appearing not acute distress. Will get crisis to evaluate patient. Labs ordered. Patient's exam not consistent with having septic joint. Lab Data Labs: Lab Results 03/14/24 Range/Units 15:50 Urine Color Yellow Urine Appearance Clear Urine pH 5.5 (5.0-9.0) Ur Specific [place] 1.010 (1.005-1.025) Urine Protein Negative (Neg-Trace) mg/dL Urine Glucose (UA) >=1000 H (Negative) mg/dL Urine Ketones Negative (Negative) mg/dL Urine Blood Negative (Negative) Urine Nitrite Negative (Negative) Ur Leukocyte Esterase Negative (Negative) Urine RBC 0-2 (0-2) /HPF Urine WBC 0-5 (0-5) /HPF Ur Squamous Epith Cells 0-2 (0-2) /HPF Urine Bacteria None Seen (None Seen) Hyaline Casts 0-2 (0-2) /LPF Urine Opiates Screen Not Detected (Not Detect) Ur Buprenorphine Scrn Not Detected (Not Detect) ng/mL Ur Oxycodone Screen Not Detected (Not Detect) ng/mL Urine Methadone Screen Not Detected (Not Detect) ng/mL Urine Fentanyl Screen Not Detected (Not Detect) Ur Barbiturates Screen Not Detected (Not Detect) Ur Phencyclidine Scrn Not Detected (Not Detect) Ur Amphetamines Screen Not Detected (Not Detect) U Benzodiazepines Scrn Not Detected (Not Detect) Urine Cocaine Screen Not Detected (Not Detect) U Marijuana (THC) Screen Not Detected (Not Detect) Discharge Plan Discharge Clinical Impression: Alcohol intoxication, Arthritis of hip Patient Disposition: Still a Patient Prescriptions: No Action quetiapine 300 mg tablet 300 mg PO BEDTIME trazodone 150 mg tablet 150 mg PO BEDTIME sertraline 100 mg tablet 1 tab PO DAILY Jardiance 25 mg tablet 25 mg PO DAILY cyanocobalamin (vitamin B-12) 1,000 mcg Tablet 1,000 mcg PO DAILY metoprolol succinate 50 mg tablet extended release 24 hr 50 mg PO DAILY meloxicam 15 mg tablet 15 mg PO DAILY PRN (Reason: pain) thiamine HCl (vitamin B1) 100 mg tablet 100 mg PO DAILY lisinopril 10 mg tablet 10 mg PO DAILY fenofibrate nanocrystallized 145 mg tablet 145 mg PO DAILY insulin glargine [Lantus Solostar U-100 Insulin] 100 unit/mL (3 mL) insulin pen 25 unit subcut DAILY Creon 3,000-9,500- 15,000 unit capsule,delayed release(DR/EC) 1 cap PO TID famotidine 20 mg tablet 20 mg PO DAILY Centrum Silver Men [id number] mcg Tablet 1 tab PO DAILY ondansetron 4 mg tablet,disintegrating 4 mg PO Q8H PRN (Reason: nausea and vomiting) Qty: 12 0RF Print Language: Kittitian
[2024-03-14 16:01] LABS: Appearance Urine Clear; Color Urine Yellow; Glucose Urine UA >=1000 mg/dL (Negative); Leukocyte Esterase Urine Negative (Negative); Nitrite Urine Negative (Negative); PH 5.5 (5.0-9.0); UMIC TRIGGER UACC YES; Urine Blood Negative (Negative); Urine Ketones Negative (Negative); Urine Protein Negative (Neg-Trace)
[2024-03-14 16:04] LABS: Bacteria Urine None Seen (None Seen); Hyaline Casts Urine 0-2 /LPF (0-2); RBC Urine 0-2 /HPF (0-2); Squamous Epithelial Cell Urine 0-2 /HPF (0-2); WBC Urine 0-5 /HPF (0-5)
[2024-03-14 16:10] LABS: Amphetamine Screen Urine Not Detected (Not Detect); Barbiturates, Urine Not Detected (Not Detect); Benzodiazepines Screen Urine Not Detected (Not Detect); Buprenorphine Scr Not Detected (Not Detect); Cannabinoid Screen Urine Not Detected (Not Detect); Cocaine Screen Urine Not Detected (Not Detect); Fentanyl, urine Not Detected (Not Detect); Methadone Screen, Urine Not Detected (Not Detect); Opiate Screen Urine Not Detected (Not Detect); Oxycodone Screen Urine Not Detected (Not Detect); Phencyclidine Screen Urine Not Detected (Not Detect)
[2024-03-14 17:07] LABS: Imm Gran Abs Auto 0.04 X10*3/uL (0.00-0.03); Imm Gran Pct Auto 0.9 % (0.0-0.4); MANUAL DIFF FLAG SCAN; PLT CLUMP 1; Red Blood Count 4.27 X10*6/uL (4.60-5.80); SCAN SMEAR FLAG 1
[2024-03-14 17:09] LABS: Basophils Percent Auto 0.9 % (0-2); Eosinophils Absolute Auto 0.2 X10*3/uL (0.0-0.4); Eosinophils Percent Auto 3.5 % (0-4); Hematocrit 39.6 % (42.0-52.0); Hemoglobin 13.5 g/dl (14.0-18.0); Lymphocytes Percent Auto 21.8 % (20-40); Mean Corpuscular HGB Conc 34.1 g/dl (31.0-36.0); Mean Corpuscular Hemoglobin 31.6 pg (27.0-33.0); Mean Corpuscular Volume 92.7 fL (80.0-98.0); Mean Platelet Volume 10.1 fL (9.4-12.4); Monocytes Absolute Auto 0.6 X10*3/uL (0.1-1.2); Monocytes Percent Auto 13.1 % (2-11); Neutrophils Absolute Auto 2.7 x10*3/uL (2.0-8.3); Neutrophils Percent Auto 59.8 % (45-73); Red Cell Distribution Width 12.2 % (11.0-16.0)
[2024-03-14 17:26] LABS: Alanine Aminotransferase 44 U/L (0-40); Albumin Level 4.2 g/dL (3.5-5.0); Alkaline Phosphatase 68 U/L (39-117); Anion Gap 16 (12-20); Aspartate Amino Transferase 59 U/L (5-37); Bilirubin Direct < 0.2 mg/dL (0.0-0.5); Bilirubin Total 0.2 mg/dL (0.0-1.0); Blood Urea Nitrogen 10 mg/dL (9-16); Carbon Dioxide 22 mmol/L (22-29); Chloride 106 mmol/L (96-108); Creatinine Clr Calc Pharmacy 109.9; Estimated Glomerular Filt Rate > 60; Glucose Random 125 mg/dL (60-115); Potassium 3.6 mmol/L (3.3-5.1); Sodium 140 mmol/L (135-145); Total Protein 7.3 g/dL (6.5-8.0)
[2024-03-14 17:30] LABS: Acetaminophen LAB < 3 mcg/mL (<30); Platelet Count 144 X10*3/uL (160-400); Salicylate < 5.0 mg/dL (15-30); White Blood Count 4.6 X10*3/uL (4.8-10.8)
[2024-03-14 17:39] LABS: Glucose, Whole Blood 115 mg/dL (60-115)
[2024-03-14 17:48] LABS: Influenza A PCR POSITIVE (Negative); Influenza B PCR NEGATIVE (Negative); Resp Syncy Virus RNA Qual PCR NEGATIVE (Negative); SARS COV2 PCR INHOUSE NEGATIVE (Negative)
[2024-03-14 18:19] LABS: SLIDE REVIEW VERIFIED
[2024-03-14 19:02] LABS: Ethanol 75 mg/dL
[2024-03-14] MEDS: QUEtiapine Fumarate 300 MG TABLET PO (21:43)
[2024-03-14] MEDS: traZODone HCL 50 MG TABLET 150 MG PO (21:43)
[2024-03-14] MEDS: oxyCODONE HCl Immed Release 5 MG TABLET PO (21:45)
[2024-03-15] MEDS: oxyCODONE HCl Immed Release 5 MG TABLET PO (05:15)
[2024-03-15 05:22] VITALS: BP 157/78; PULSE 86; RESP 17; TEMP 36.8; O2SAT 98
[2024-03-15 07:18] LABS: Glucose, Whole Blood 133 mg/dL (60-115)
[2024-03-15] MEDS: Multivitamin TABLET 1 TAB PO (08:24)
[2024-03-15] MEDS: lisinopriL 10 MG TABLET PO (08:24)
[2024-03-15] MEDS: Famotidine 20 MG TABLET PO (08:24)
[2024-03-15] MEDS: Insulin Glargine,Hum.rec.anlog 100 UNIT/ML 10 ML VIAL 25 UNIT SUBCUT (08:24)
[2024-03-15] MEDS: Sertraline HCL 100 MG TABLET PO (08:24)
[2024-03-15] MEDS: Cyanocobalamin (Vitamin B-12) 1,000 MCG TABLET 1000 MCG PO (08:24)
[2024-03-15] MEDS: Empagliflozin 25 MG TABLET PO (09:45)
[2024-03-15] MEDS: Fenofibrate 160 MG TABLET PO (09:45)
--- NOTE | 2024-03-15 09:47 | MHC.CARE ---
Pt does not meet the criteria for IPLOC at this time. Pt denies SI, HI, and A/V/H. He reported I came to the ED yesterday for answers but I do not want to hurt myself. Pt was able to safety plan, and stated I will have my VNA pick me up, go home, take a hot shower, and take extra strength tylenol which helps. Pt plans to contact his ortho doctor to attempt to expedite his surgery. He is aware he will not be discharged with narcotics. Of note, provider confirmed that Pt is not attending his appointments for drug tests therefore this is prohibiting his ability to obtain an earlier hip replacement appointment. Pt is safe to discharge at this time and his suicidal thoughts yesterday were secondary to his ETOH intoxication and pain. Provider in agreement.
[2024-03-15 09:48] VITALS: BP 132/84; PULSE 87; RESP 16; TEMP 36.6; O2SAT 97
== END 2024-03-15 10:39 | disposition home or self-care (01) ==
PROVIDERS: Emergency Provider Emergency Medicine Emergency Medical Services; PCP Internal Medicine
DX: F10.120 Alcohol abuse with intoxication, uncomplicated (principal); Y90.3 Blood alcohol level of 60-79 mg/100 ml; M16.12 Unilateral primary osteoarthritis, left hip; M25.552 Pain in left hip; J10.1 Influenza due to other identified influenza virus with other respiratory manifestations; E11.9 Type 2 diabetes mellitus without complications; I10 Essential (primary) hypertension; F14.10 Cocaine abuse, uncomplicated; Z79.4 Long term (current) use of insulin; Z79.899 Other long term (current) drug therapy
CPT/HCPCS: 0241U; 36415; 73502; 80048; 80076; 80143; 80179; 80307; 81001; 82947; 85025; 93005; 99285; S9485

== ENCOUNTER → 2024-03-14 15:42 | Outpatient (BNV) | payer OTHER, SELFPAY | PROVIDERS: Emergency Provider Emergency Medicine Emergency Medical Services; PCP Internal Medicine; Visit Provider Radiology Diagnostic Radiology | DX: M25.552 Pain in left hip (principal) | CPT/HCPCS: 73502 ==

== ENCOUNTER → 2024-03-14 15:43 | Outpatient (BNV) | payer OTHER, SELFPAY | PROVIDERS: Emergency Provider Emergency Medicine Emergency Medical Services; PCP Internal Medicine; Visit Provider Internal Medicine | DX: I45.81 Long QT syndrome (principal) | CPT/HCPCS: 93010 ==

== ENCOUNTER 2024-08-04 08:58 | Inpatient (IN) | payer OTHER, SELFPAY ==
--- NOTE | ~2024-08-04 | CT_ITS ---
EXAMINATION: CT ABDOMEN AND PELVIS WITH CONTRAST CLINICAL INFORMATION: Chronic pancreatitis. Epigastric pain. COMPARISON: July 25, 2023. TECHNIQUE: Multidetector volumetric images were obtained from the superior aspect of the liver through the pubic symphysis following administration 85 mL of Omnipaque 350 intravenous contrast. Sagittal and coronal reformatted images were obtained on the technologist's workstation. Oral contrast: No This CT examination was performed using dose optimization techniques as appropriate, variously including the following: *Automated exposure control *Adjustment of mA and/or kV according to patient size (this includes techniques or standardized protocols for targeted exams where dose is matched to indication/reason for exam; i.e. extremities or head) *Use of iterative reconstruction technique. DLP: 681 mg centimeter. FINDINGS: LUNG BASES: Cluster of the 8mm noncalcified pulmonary nodule in the periphery of the right lower lung lobe. LIVER, GALLBLADDER, AND BILIARY TREE: Liver measures 16 cm. Decreased enhancement pattern. No focal mass. Main portal veins and intrahepatic portion of the IVC are patent. The suprahepatic veins are not identified. No intrahepatic biliary ductal dilatation. No pericholecystic fluid collection or gallbladder wall thickening. Common bile duct measures 3 mm. PANCREAS: There is peripancreatic edema pattern involving the lesser sac without gross fluid collection. The pancreas demonstrates homogeneous enhancement. No main pancreatic ductal dilatation. Dystrophic calcifications in the inferior head of the pancreas. SPLEEN: Spleen measures 11 cm. No focal lesion. ADRENAL GLANDS: No nodular lesions. KIDNEYS AND URETERS: Normal enhancement pattern of the renal parenchyma. No gross renal mass. No hydronephrosis. No gross nephrolithiasis. BLADDER: Fluid-filled. GASTROINTESTINAL TRACT: Stool within the right hemicolon. No intestinal obstruction pattern. No intestinal wall thickening. Appendix is normal. Collapsed left hemicolon. No pneumatosis intestinalis. No pneumoperitoneum. No peripheral enhancing fluid collection. No gross ascites. ABDOMINAL WALL: Small fat-containing umbilical hernia. Postsurgical changes in the right and left inguinal canals. LYMPH NODES: Numerous prominent in the retroperitoneum. VASCULAR: Calcified plaques in the coronary arteries and abdominal aorta, iliac arteries. No aneurysm or dissection, abdominal aorta. Small caliber of the splenic vein with associated collateral flow extending from the superior mesenteric vein and perigastric veins. Focal vascular irregularity in the splenic artery. Prominent vessels extending from the superior mesenteric vein to the perigastric and perisplenic. There is no patency of the umbilical vein. PELVIC VISCERA: Not enlarged. OSSEOUS STRUCTURES: Total right hip arthroplasty prosthesis with an old traumatic deformity in the intertrochanteric region. Degenerative changes in the left coxofemoral joint. Multilevel marginal osteophyte formation syndesmophyte formation throughout the axial skeleton with a DISH morphology in the lower thoracic spine. There is spondylosis at L4-5 and L5-S1. CT/CT abdomen pelvis w IV con IMPRESSION: Acute pancreatitis. 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 Fleischner guidelines were followed. Electronically signed by: Lakhwinder Cordova MD 08/04/2024 11:03 AM EDT
--- NOTE | 2024-08-04 09:03 | ED.ABDPAIN ---
HPI - Abdominal Pain General Chief Complaint: Abdominal Pain Stated Complaint: ABD Pain/N/V Time Seen by Provider: 08/04/24 09:03 Source: patient, RN notes reviewed and old records reviewed Mode of arrival: EMS Limitations: no limitations History of Present Illness ED Provider: Christopher Liang PA-C HPI narrative: 54-year-old male with medical history of alcohol use disorder, cocaine use disorder, T2DM, HTN, chronic pancreatitis, presents to the ED due to 2 days of abdominal pain with nausea and vomiting. Patient reports he has been out of Creon which he takes to manage his chronic pancreatitis for the past 5 days due to pharmacy being out of the medication. He was able to peanut picker Creon this morning from pharmacy. He states he began feeling abdominal pain yesterday which radiates to the middle of his back, with pain being worse today prompting him to seek care. Patient said he started did vomiting this morning but denies any hematemesis. States he had a large bowel movement this morning which temporarily made his abdominal pain better but pain soon came back. Abdominal pain is worse when lying down. He states he took meloxicam around 5:00 a.m. this morning without effect. He states he is still currently drinking every Wednesday and Wednesday and has about 6-7 beers. He states his last drink was 3 days ago. Denies any cocaine or other drug use. Denies recent sick contacts, headaches, chest pain, shortness of breath, black or tarry stools, fevers, chills. MD elicited complaint: abdominal pain Pertinent past history: other (Chronic pancreatitis, alcohol use disorder, cocaine use disorder) Onset (ago): day(s) (2) Pain Consistency: constant Location: diffuse Severity: moderate Quality: aching, fullness and sharp Radiation: back Migration to: no migration Exacerbating factors: movement and other (Lying down) Relieving factors: nothing Associated symptoms: nausea and vomiting Treatments prior to arrival: NSAIDs (Meloxicam 5:00 a.m. this morning) Related Data Home Medications ?Medication ?Instructions ?Recorded ?Confirmed quetiapine 300 mg tablet 300 mg PO BEDTIME 02/27/20 03/14/24 trazodone 150 mg tablet 150 mg PO BEDTIME 02/27/20 03/14/24 sertraline 100 mg tablet 1 tab PO DAILY 06/23/21 03/14/24 metoprolol succinate 50 mg 50 mg PO DAILY 08/10/22 08/22/23 tablet,extended release 24 hr cyanocobalamin (vitamin B-12) 1,000 mcg PO DAILY 03/10/23 03/14/24 1,000 mcg tablet empagliflozin 25 mg tablet 25 mg PO DAILY 03/10/23 03/14/24 (Jardiance) famotidine 20 mg tablet 20 mg PO DAILY 08/22/23 03/14/24 fenofibrate nanocrystallized 145 145 mg PO DAILY 08/22/23 03/14/24 mg tablet insulin glargine 100 unit/mL (3 25 unit subcut DAILY 08/22/23 03/14/24 mL) subcutaneous pen (Lantus Solostar U-100 Insulin) nyvona-mvnpqyft-qicyrqk 1 cap PO TID 08/22/23 03/14/24 3,000-9,500-15,000 unit capsule, delayed rel (Creon) lisinopril 10 mg tablet 10 mg PO DAILY 08/22/23 03/14/24 meloxicam 15 mg tablet 15 mg PO DAILY PRN pain 08/22/23 03/14/24 mhooxdfv-ag-rnprs 300 mcg-K 60 1 tab PO DAILY 08/22/23 03/14/24 mcg-lycop 600 mcg-lutein 300 mcg tablet (Centrum Silver Men) thiamine HCl (vitamin B1) 100 mg 100 mg PO DAILY 08/22/23 08/22/23 tablet Previous Rx's ?Medication ?Instructions ?Recorded ondansetron 4 mg disintegrating 4 mg PO Q8H PRN nausea and 08/26/23 tablet vomiting #12 tabs oseltamivir 75 mg capsule (Tamiflu) 75 mg PO BID 5 days #10 caps 03/15/24 Allergies Allergy/AdvReac Type Severity Reaction Status Date / Time sildenafil (From Viagra) Allergy Unknown Verified 08/04/24 09:12 Review of Systems Review of Systems CONST: Negative for fever, body aches and chills. HENT: Negative for neck pain/stiffness, headache, congestion, sore throat, swelling. EYES: Negative for discharge/pain or vision changes. RESP: Negative for cough/hemoptysis and shortness of breath. CV: Negative chest pain, difficulty breathing, palpitations. ABD: POS pain radiating to center of back, nausea, vomiting. : Negative increase frequency, dysuria, blood in urine or stool. MUSC: Negative for muscle aches, edema. SKIN: Negative rash, lesions/sores. NEURO: Negative headache, dizziness, weakness. Yes all other systems are reviewed and are negative PMFSH Past Medical History Attestation statement: The following information was validated with the patient. Source: old records reviewed and nursing notes reviewed Medical History Osteoarthritis of left hip Acromioclavicular joint arthritis Alcohol use disorder Cocaine abuse Alcohol withdrawal Duodenitis Diabetes mellitus Arthritis Alcohol abuse Cocaine abuse Seizures Hypertension Pancreatitis Surgical History H/O hernia repair Family History Family History Other CAD (coronary artery disease) Diabetes mellitus Social History Social History Household Members: None Housing: Apartment Do you presently have visiting nurse or other home services: Yes (needing a new one, previous quit) Alcohol intake: current Alcohol intake frequency: a few times a week Alcohol type: beer Comment: refuses fall risk precautions Patient Tobacco Use Status: Never used Tobacco e-Cigarette/Vaping Use: Never Used Second Hand Smoke Exposure: No Use of substances other than those prescribed or required for medical reasons: No Substance Use Type: Crack/Cocaine Advance Directives: Yes Advance Directives on File: Yes Advance Directives Date on File: 02/27/20 service: No Current occupational status: disabled Physical Exam ED Vital Signs: Vital Signs - 24 hr 08/04/24 09:08 08/04/24 09:11 08/04/24 10:52 Temperature 97.9 F 97.9 F 98.2 F Pulse Rate 72 72 69 Respiratory Rate 18 16 18 Blood Pressure 145/69 H 145/69 H 141/79 H Pulse Oximetry 97 97 97 Oxygen Delivery Method Room Air Room Air Room Air BMI result Body Mass Index 25.4 GENERAL APPEARANCE: ?AxOx4, uncomfortable appearing, no acute distress. HEENT: ?NC, AT. MMM. EOMI, clear conjunctiva, oropharynx clear. HEART:? Normal rate and regular rhythm, normal S1/S1, no m/r/g LUNGS:? CTAB, moving air well. No crackles or wheezes are heard. ABDOMEN: diffuse tenderness over right abdomen and epigastric area with guarding, no rigidity, no rebound tenderness, without umbilical or flank ecchymosis. Hypoactive bowel sounds in all 4 quadrants BACK: No CVAT, no obvious deformity, abd pain radiating to center of back EXTREMITIES: ?Without cyanosis, clubbing or edema. NEUROLOGICAL: ?Grossly nonfocal. Alert and oriented, moving all 4 extremities. Observed to ambulate with normal gait. Skin: ?Warm and dry without any rash. Medical Decision Making Medical Decision Making MDM Narrative: 54-year-old male with medical history of alcohol use disorder, cocaine use disorder, T2DM, HTN, chronic pancreatitis, presents to the ED due to 2 days of abdominal pain with nausea and vomiting. Patient reports he has been out of Creon which he takes to manage his chronic pancreatitis for the past 5 days. He states he began feeling abdominal pain yesterday which radiates to the middle of his back, with pain being worse today prompting him to seek care. Patient said he started did vomiting this morning but denies any hematemesis. States he had a large bowel movement this morning which temporarily made his abdominal pain better but pain soon came back. Abdominal pain is worse when lying down. He states he took meloxicam around 5:00 a.m. this morning without effect. He states he is still currently drinking every Wednesday and Wednesday and has about 6-7 beers. He states his last drink was 3 days ago. Denies any cocaine or other drug use. VSS, patient uncomfortable in stretcher due to abdominal pain, nontoxic appearing. Physical exam reveals exquisite tenderness of the RUQ and epigastric area that radiates to center of back, abdomen soft, guarding present, no rebound tenderness, no flank or umbilical ecchymosis. EKG normal sinus rhythm with a few PVCs present, no ST elevation/depression/T-wave inversions indicative of ischemia. Will obtain initial troponin to R/O ACS since patient is diabetic with epigastric pain, may be atypical ACS. Upon chart review patient has extensive history of acute on chronic pancreatitis. Obtaining labs, UA, CT abdomen and pelvis with contrast to evaluate abdominal pain. Patient is uncomfortable will medicate with IV fluids, Zofran, and 1 mg Dilaudid for pain control. Currently awaiting results of labs and CT scan. Course 12:32- Labs without leukocytosis, reveal elevated lipase of 1060, amylase of 331. Triglycerides WNL, without gap, beta hydroxybuterate WNL, glucose moderately elevated at 266- less likely DKA/ diabetic pancreatitis. UA reveals elevated urine glucose of 1,000. CT abdomen/pelvis reveals acute pancreatitis with peripancreatic edema, without fluid collection. Incidental findings of Cluster of the 8mm noncalcified pulmonary nodule in the periphery of the right lower lung lobe. 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 Patient is experiencing severe pain and is requesting more pain meds. Will medicate with additional L of IV fluids and additional 1mg of dilaudid for pain relief. I consulted Hospitalist Dr. Nguyen who agreed for admission. Patient is understanding of the plan. I recommended he follow up with his PCP to monitor the incidnetal findings of nodules in the lung. Differential Diagnosis Differential Diagnoses: The differential diagnosis associated with the presentation includes ACS Pancreatitis SBO Acute abdomen Nephrolithiasis Gastritis Admission/Observation Consideration of admission/observation: Escalation of care including admission/observation considered Consult Healthcare Provider Management of the patient was discussed with: Hospitalist (Dr. Nguyen who agreed to admission) Lab Data MDM Lab Attestation statement: I reviewed the patient's lab results. 08/04/24 09:42 08/04/24 09:42 Labs: Lab Results 08/04/24 08/04/24 08/04/24 Range/Units 09:38 09:42 10:59 WBC 8.4 (4.8-10.8) X10*3/uL RBC 4.10 L (4.60-5.80) X10*6/uL Hgb 13.4 L (14.0-18.0) g/dl Hct 37.6 L (42.0-52.0) % MCV 91.7 (80.0-98.0) fL MCH 32.7 (27.0-33.0) pg MCHC 35.6 (31.0-36.0) g/dl RDW 12.0 (11.0-16.0) % Plt Count 198 D (160-400) X10*3/uL MPV 9.5 (9.4-12.4) fL Immature Gran % (Auto) 0.7 H (0.0-0.4) % Neut % (Auto) 74.5 H (45-73) % Lymph % (Auto) 15.0 L (20-40) % [place] % (Auto) 8.8 (2-11) % Eos % (Auto) 0.5 (0-4) % Baso % (Auto) 0.5 (0-2) % Lymph # (Auto) 1.3 (1.2-4.9) X10*3/uL [place] # (Auto) 0.7 (0.1-1.2) X10*3/uL Eos # (Auto) 0.0 (0.0-0.4) X10*3/uL Baso # (Auto) 0.0 (0.0-0.2) X10*3/uL Abs Immat Gran (auto) 0.06 H (0.00-0.03) X10*3/uL Absolute Neuts (auto) 6.3 (2.0-8.3) x10*3/uL Absolute Nucleated RBC 0.000 (0.0-0.012) X10*3/uL Nucleated RBC % (auto) 0.0 (0.0-0.2) /100WBC Sodium 134 L (135-145) mmol/L Potassium 4.0 (3.3-5.1) mmol/L Chloride 101 (96-108) mmol/L Carbon Dioxide 25 (22-29) mmol/L Anion Gap 12 (12-20) BUN 20 H (9-16) mg/dL Creatinine 1.05 (0.5-1.4) mg/dL Estim Creat Clear Calc 70.8 Estimated GFR > 60 POC Glucose 266 H (60-115) mg/dL Random Glucose 276 H (60-115) mg/dL Calcium 9.3 (8.4-10.2) mg/dL Total Bilirubin 0.4 (0.0-1.0) mg/dL AST 24 (5-37) U/L ALT 20 (0-40) U/L Alkaline Phosphatase 58 (39-117) U/L Troponin I High Sens < 2.7 (<3.5-35.0) ng/L Total Protein 6.6 (6.5-8.0) g/dL Albumin 4.1 (3.5-5.0) g/dL Triglycerides 144 (<150) mg/dL Amylase 331 H (28-100) U/L Lipase 1060 H (8-78) U/L Beta-Hydroxybutyrate 0.23 (0.02-0.27) mmol/L Urine Color Yellow Urine Appearance Clear Urine pH 7.0 (5.0-9.0) Ur Specific [place] >= 1.030 H (1.005-1.025) Urine Protein Negative (Neg-Trace) mg/dL Urine Glucose (UA) >=1000 H (Negative) mg/dL Urine Ketones Negative (Negative) mg/dL Urine Blood Negative (Negative) Urine Nitrite Negative (Negative) Ur Leukocyte Esterase Negative (Negative) Urine RBC 0-2 (0-2) /HPF Urine WBC 0-5 (0-5) /HPF Ur Squamous Epith Cells 0-2 (0-2) /HPF Urine Bacteria None Seen (None Seen) Hyaline Casts 0-2 (0-2) /LPF Independent Interpretation I performed an independent interpretation of an: EKG and CT Scan Interpretation: Independently interpreted the EKG EKG normal sinus rhythm with PVCs Vent. Rate : 69 BPM Atrial Rate : 69 BPM P-R Int : 180 ms QRS Dur : 92 ms QT Int : 408 ms P-R-T Axes : 46 -5 11 degrees QTcB Int : 437 ms Sinus rhythm with occasional Premature ventricular complexes Otherwise normal ECG When compared with ECG of 14-Mar-2024 16:12, Premature ventricular complexes are now Present Radiology Impression Discussion of test interpretation with radiology: I have reviewed the radiologist's reading. Radiologist Impression: FINDINGS: LUNG BASES: Cluster of the 8mm noncalcified pulmonary nodule in the periphery of the right lower lung lobe. LIVER, GALLBLADDER, AND BILIARY TREE: Liver measures 16 cm. Decreased enhancement pattern. No focal mass. Main portal veins and intrahepatic portion of the IVC are patent. The suprahepatic veins are not identified. No intrahepatic biliary ductal dilatation. No pericholecystic fluid collection or gallbladder wall thickening. Common bile duct measures 3 mm. PANCREAS: There is peripancreatic edema pattern involving the lesser sac without gross fluid collection. The pancreas demonstrates homogeneous enhancement. No main pancreatic ductal dilatation. Dystrophic calcifications in the inferior head of the pancreas. SPLEEN: Spleen measures 11 cm. No focal lesion. ADRENAL GLANDS: No nodular lesions. KIDNEYS AND URETERS: Normal enhancement pattern of the renal parenchyma. No gross renal mass. No hydronephrosis. No gross nephrolithiasis. BLADDER: Fluid-filled. GASTROINTESTINAL TRACT: Stool within the right hemicolon. No intestinal obstruction pattern. No intestinal wall thickening. Appendix is normal. Collapsed left hemicolon. No pneumatosis intestinalis. No pneumoperitoneum. No peripheral enhancing fluid collection. No gross ascites. ABDOMINAL WALL: Small fat-containing umbilical hernia. Postsurgical changes in the right and left inguinal canals. LYMPH NODES: Numerous prominent in the retroperitoneum. VASCULAR: Calcified plaques in the coronary arteries and abdominal aorta, iliac arteries. No aneurysm or dissection, abdominal aorta. Small caliber of the splenic vein with associated collateral flow extending from the superior mesenteric vein and perigastric veins. Focal vascular irregularity in the splenic artery. Prominent vessels extending from the superior mesenteric vein to the perigastric and perisplenic. There is no patency of the umbilical vein. PELVIC VISCERA: Not enlarged. OSSEOUS STRUCTURES: Total right hip arthroplasty prosthesis with an old traumatic deformity in the intertrochanteric region. Degenerative changes in the left coxofemoral joint. Multilevel marginal osteophyte formation syndesmophyte formation throughout the axial skeleton with a DISH morphology in the lower thoracic spine. There is spondylosis at L4-5 and L5-S1. CT/CT abdomen pelvis w IV con IMPRESSION: Acute pancreatitis. 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 Fleischner guidelines were followed. Electronically signed by: Lakhwinder Cordova MD 08/04/2024 11:03 AM EDT Dictated By: Lakhwinder Melendez MD Signed By: <Electronically signed by Lakhwinder Larson MD in OV> 08/04/24 1103 Independent Historian Clinical information obtained from an independent historian. History obtained from or confirmed by: EMS External Record Review External record reviewed: Inpatient record, Office record and Outpatient record Chronic Conditions Patient?s care impacted by: Diabetes, Hypertension and Other (Chronic pancreatitis, alcohol use disorder, cocaine use disorder) Medications Administered Generic Name Dose Route Start Last Admin Trade Name Boo PRN Reason Stop Dose Admin Lactated Ringer's 1,000 mls @ 999 mls/hr 08/04/24 12:03 08/04/24 12:17 Lr IV 08/04/24 13:03 999 mls/hr .Q1H1M ONE Administration Discontinued Medications Generic Name Dose Route Start Last Admin Trade Name Boo PRN Reason Stop Dose Admin Hydromorphone HCl 1 mg 08/04/24 09:27 08/04/24 09:48 Hydromorphone Hcl 1 Mg/Ml Syringe IVPUSH 08/04/24 09:28 1 mg ONCE ONE Administration Protocol Hydromorphone HCl 1 mg 08/04/24 12:03 08/04/24 12:18 Hydromorphone Hcl 1 Mg/Ml Syringe IVPUSH 08/04/24 12:04 1 mg ONCE ONE Administration Protocol Lactated Ringer's 1,000 mls @ 999 mls/hr 08/04/24 09:18 08/04/24 11:00 Lr IV 08/04/24 10:18 Infused .Q1H1M ONE Infusion Iohexol 100 ml 08/04/24 10:37 08/04/24 10:37 Iohexol 350 Mg/Ml 100 Ml Infus..Btl IV 08/04/24 10:38 85 ml ONCE ONE Administration Ondansetron HCl 4 mg 08/04/24 09:18 08/04/24 09:48 Ondansetron Hcl 4 Mg/2 Ml Vial IVPUSH 08/04/24 09:19 4 mg ONCE ONE Administration Discharge Plan Discharge Print Language: Persian
--- NOTE | 2024-08-04 09:05 | PC.NURSE ---
Addendum entered by Onelia Terry RN 08/04/24 09:39: Patient is a 54-year-old male with history of alcohol use disorder, cocaine use disorder, insulin-dependent type 2 diabetes, hypertension, history of pancreatitis, and unspecified seizure disorder not on antiepileptic therapy presented to the ED earlier today for evaluation of epigastric abdominal pain radiating to the back bilaterally that started today after running out of his creon for the past 5 days. Positive nausea or vomiting. No fevers chills, diarrhea, melena, hematochezia, lightheadedness, shortness of breath, chest pain. He does report that he has been drinking alcohol intermittently 6-7 beers at a time. States stopped drinking the hard stuff He states that his last alcohol consumption was on 08/02 a consumed greater than 6-7 beers. Traci cocaine use. Denies cigarette smoking. He has had pancreatitis in the past and reports feels similar. Patient alert and oriented. Lungs clear bilat. Respirations even and non-labored. Abdomen sl firm, distended with positive bowel sounds. c/o generalized abdominal pain with tenderness noted. Positive pedal pulses with no edema. Original Note: Medical History Osteoarthritis of left hip Acromioclavicular joint arthritis Alcohol use disorder Cocaine abuse Alcohol withdrawal Duodenitis Diabetes mellitus Arthritis Alcohol abuse Cocaine abuse Seizures Hypertension Pancr
[2024-08-04 09:08] VITALS: BP 145/69; BP 152/82; PULSE 63; PULSE 72; RESP 18; TEMP 36.6; O2SAT 96; O2SAT 97; BMI 25.4
[2024-08-04 09:11] VITALS: BP 145/69; PULSE 72; RESP 16; TEMP 36.6; O2SAT 97
--- NOTE | 2024-08-04 09:16 | ECG_ITS ---
Test Reason : dif breathing, abdominal pain Blood Pressure : */* mmHG Vent. Rate : 69 BPM Atrial Rate : 69 BPM P-R Int : 180 ms QRS Dur : 92 ms QT Int : 408 ms P-R-T Axes : 46 -5 11 degrees QTcB Int : 437 ms Sinus rhythm with occasional Premature ventricular complexes Otherwise normal ECG When compared with ECG of 14-Mar-2024 16:12, Premature ventricular complexes are now Present Referred By: Garth White Electronically Signed By: Chava Golden
[2024-08-04 09:41] LABS: Glucose, Whole Blood 266 mg/dL (60-115)
[2024-08-04 09:47] LABS: MANUAL DIFF FLAG NO
[2024-08-04] MEDS: ondansetron HCL 4 MG/2 ML VIAL IVPUSH (09:48)
[2024-08-04] MEDS: Lactated Ringers 1,000 ML 999 ML IV ×2 (09:48→12:17)
[2024-08-04] MEDS: HYDROmorphone HCl 1 MG/ML SYRINGE IVPUSH ×2 (09:48→12:18)
[2024-08-04 09:49] LABS: Basophils Percent Auto 0.5 % (0-2); Eosinophils Percent Auto 0.5 % (0-4); Hematocrit 37.6 % (42.0-52.0); Hemoglobin 13.4 g/dl (14.0-18.0); Imm Gran Abs Auto 0.06 X10*3/uL (0.00-0.03); Imm Gran Pct Auto 0.7 % (0.0-0.4); Lymphocytes Absolute Auto 1.3 X10*3/uL (1.2-4.9); Mean Corpuscular HGB Conc 35.6 g/dl (31.0-36.0); Mean Corpuscular Hemoglobin 32.7 pg (27.0-33.0); Mean Corpuscular Volume 91.7 fL (80.0-98.0); Mean Platelet Volume 9.5 fL (9.4-12.4); Monocytes Absolute Auto 0.7 X10*3/uL (0.1-1.2); Monocytes Percent Auto 8.8 % (2-11); Neutrophils Absolute Auto 6.3 x10*3/uL (2.0-8.3); Neutrophils Percent Auto 74.5 % (45-73); Platelet Count 198 X10*3/uL (160-400); White Blood Count 8.4 X10*3/uL (4.8-10.8)
[2024-08-04 10:15] LABS: Alanine Aminotransferase 20 U/L (0-40); Albumin Level 4.1 g/dL (3.5-5.0); Alkaline Phosphatase 58 U/L (39-117); Amylase 331 U/L (28-100); Anion Gap 12 (12-20); Aspartate Amino Transferase 24 U/L (5-37); Bilirubin Total 0.4 mg/dL (0.0-1.0); Blood Urea Nitrogen 20 mg/dL (9-16); Calcium 9.3 mg/dL (8.4-10.2); Carbon Dioxide 25 mmol/L (22-29); Chloride 101 mmol/L (96-108); Creatinine Clr Calc Pharmacy 70.8; Estimated Glomerular Filt Rate > 60; Glucose Random 276 mg/dL (60-115); Sodium 134 mmol/L (135-145); Total Protein 6.6 g/dL (6.5-8.0)
[2024-08-04 10:21] LABS: Beta-Hydroxybutyrate 0.23 mmol/L (0.02-0.27); Lipase 1060 U/L (8-78); Troponin-I High Sensitivity < 2.7 ng/L (<3.5-35.0)
[2024-08-04] MEDS: iohexoL 350 MG/ML 100 ML INFUS..BTL IV (10:37)
[2024-08-04 10:48] LABS: Triglycerides 144 mg/dL (<150)
[2024-08-04 10:52] VITALS: BP 141/79; PULSE 69; RESP 18; TEMP 36.8; O2SAT 97
[2024-08-04 11:08] LABS: Appearance Urine Clear; Color Urine Yellow; Glucose Urine UA >=1000 mg/dL (Negative); Leukocyte Esterase Urine Negative (Negative); Nitrite Urine Negative (Negative); Specific Gravity - Urine >= 1.030 (1.005-1.025); UMIC TRIGGER UACC YES; Urine Blood Negative (Negative); Urine Ketones Negative (Negative); Urine Protein Negative (Neg-Trace)
[2024-08-04 11:13] LABS: Bacteria Urine None Seen (None Seen); Hyaline Casts Urine 0-2 /LPF (0-2); RBC Urine 0-2 /HPF (0-2); Squamous Epithelial Cell Urine 0-2 /HPF (0-2); WBC Urine 0-5 /HPF (0-5)
--- NOTE | 2024-08-04 12:39 | PM.IMHP ---
History of Present Illness Date of Service: 08/04/24 <Rigo Nguyen MD - Last Filed: 08/04/24 13:05> Chief Complaint: Abdominal pain <Rigo Nguyen MD - Last Filed: 08/04/24 13:05> 54-year-old male with PMH of alcohol use disorder, cocaine use disorder, T2DM, HTN, chronic pancreatitis, presents to the ED with abdominal pain. He reports that he has been out of his Creon for 3-4 days which manages his chronic pancreatitis. He started with mild abdominaland back pain yesterday, which worsened this morning prompting him to come in. Patient reports that he vomited yesterday, clear substance no hematemesis, reports that he ate 3 meals yesterday, last ate a sandwich last evening. Did not eat this morning. He initially thought he was constipated but he had a large BM and this did not relieve his pain. He states he began feeling abdominal pain yesterday which radiates to the middle of his back, with pain being worse today prompting him to seek care today. Patient reports no pain at present, just received pain medication. Reports drinking beer on the weekend, no recent drug use. In the ED he received 2 L of lactated Ringer's, 1 mg of Dilaudid and 4 mg of Zofran which relieved his symptoms. He is resting comfortably at this time. In the ED, EKG demonstrated normal sinus rhythm, no ST elevation/depression/T-wave inversions. Occasional PVC's. No leukocytosis, elevated lipase of 1060, amylase of 331. Triglycerides WNL. Beta hydroxybuterate WNL, glucose elevated at 266. UA with urine glucose of 1,000. CT abdomen/pelvis reveals acute pancreatitis with peripancreatic edema, without fluid collection. Incidental findings of Cluster of the 8mm noncalcified pulmonary nodule in the periphery of the right lower lung lobe. Will need outpatient follow up. <Suzette Raygoza DNP - Last Filed: 08/04/24 14:13> Review of Systems Review of Systems: Gen: no fever Resp: no sob, no cough CV: no chest, no ALONSO, no leg edema GI: No n/v, + abd pain Neuro: No confusion <Rigo Nguyen MD - Last Filed: 08/04/24 13:05> Yes all other systems are reviewed and are negative <Rigo Nguyen MD - Last Filed: 08/04/24 13:05> [facility] Medical History: Medical History Osteoarthritis of left hip Acromioclavicular joint arthritis Alcohol use disorder Cocaine abuse Alcohol withdrawal Duodenitis Diabetes mellitus Arthritis Alcohol abuse Cocaine abuse Seizures Hypertension Pancreatitis <Rigo Nguyen MD - Last Filed: 08/04/24 13:05> Family History: Family History Other CAD (coronary artery disease) Diabetes mellitus <Rigo Nguyen MD - Last Filed: 08/04/24 13:05> Surgical History: Surgical History H/O hernia repair <Rigo Nguyen MD - Last Filed: 08/04/24 13:05> Social History: Social History Household Members: None Housing: Apartment Do you presently have visiting nurse or other home services: Yes (needing a new one, previous quit) Alcohol intake: current Alcohol intake frequency: a few times a week Alcohol type: beer Comment: refuses fall risk precautions Patient Tobacco Use Status: Never used Tobacco e-Cigarette/Vaping Use: Never Used Second Hand Smoke Exposure: No Use of substances other than those prescribed or required for medical reasons: No Substance Use Type: Crack/Cocaine Advance Directives: Yes Advance Directives on File: Yes Advance Directives Date on File: 02/27/20 service: No Current occupational status: disabled <Rigo Nguyen MD - Last Filed: 08/04/24 13:05> Meds Allergies/Adverse reactions: Allergies Allergy/AdvReac Type Severity Reaction Status Date / Time sildenafil (From Viagra) Allergy Unknown Verified 08/04/24 09:12 <Rigo Nguyen MD - Last Filed: 08/04/24 13:05> Active Medications: Current Medications Lactated Ringer's (Lr) 1,000 mls @ 999 mls/hr IV .Q1H1M ONE Stop: 08/04/24 13:03 Last Admin: 08/04/24 12:17 Dose: 999 mls/hr Lactated Ringer's (Lr) 1,000 mls @ 125 mls/hr IVCONT .Q8H SHAGGY <Rigo Nguyen MD - Last Filed: 08/04/24 13:05> Home medications: Home Medications ?Medication ?Instructions ?Recorded ?Confirmed ?Last Taken ?Type quetiapine 300 mg tablet 300 mg PO BEDTIME 02/27/20 08/04/24 08/03/24 History trazodone 150 mg tablet 150 mg PO BEDTIME 02/27/20 08/04/24 08/03/24 History metoprolol succinate 50 mg 50 mg PO DAILY 08/10/22 08/04/24 08/04/24 History tablet,extended release 24 hr cyanocobalamin (vitamin B-12) 1,000 mcg PO DAILY 03/10/23 08/04/24 08/04/24 History 1,000 mcg tablet empagliflozin 25 mg tablet 25 mg PO DAILY 03/10/23 08/04/24 08/04/24 History (Jardiance) famotidine 20 mg tablet 20 mg PO DAILY 08/22/23 08/04/24 08/04/24 History fenofibrate nanocrystallized 145 145 mg PO DAILY 08/22/23 08/04/24 08/04/24 History mg tablet insulin glargine 100 unit/mL (3 25 unit subcut DAILY 08/22/23 08/04/24 08/03/24 History mL) subcutaneous pen (Lantus Solostar U-100 Insulin) itowkt-[id number]-qzcwfmo 1 cap PO TID 08/22/23 08/04/24 08/04/24 History 3,000-9,500-15,000 unit capsule, delayed rel (Creon) lisinopril 10 mg tablet 10 mg PO DAILY 08/22/23 08/04/24 08/04/24 History mnhyjfqo-op-bifnv 300 mcg-K 60 1 tab PO DAILY 08/22/23 08/04/24 08/04/24 History mcg-lycop 600 mcg-lutein 300 mcg tablet (Centrum Silver Men) celecoxib 200 mg capsule 200 mg PO BID PRN pain 08/04/24 08/04/24 Unknown History duloxetine 60 mg capsule,delayed 60 mg PO DAILY 08/04/24 08/04/24 08/04/24 History release gabapentin 300 mg capsule 300 mg PO BID PRN Pain 08/04/24 08/04/24 Unknown History meloxicam 15 mg tablet 15 mg PO DAILY PRN pain 08/04/24 08/04/24 Unknown History <Rigo Nguyen MD - Last Filed: 08/04/24 13:05> Physical Exam Vital Signs and Narrative: Vital Signs: Last Vital Signs Temp 98.2 F 08/04/24 10:52 Pulse 69 08/04/24 10:52 Resp 18 08/04/24 10:52 BP 141/79 H 08/04/24 10:52 Pulse Ox 97 08/04/24 10:52 O2 Del Method Room Air 08/04/24 10:52 BMI result Body Mass Index 25.4 <Rigo Nguyen MD - Last Filed: 08/04/24 13:05> GENERAL APPEARANCE: ?AxOx4, appears comfortable, no acute distress. HEENT: ?Normocephalic, atraumatic, MMM. EOMI, clear conjunctiva, oropharynx clear. HEART:? Normal rate and regular rhythm, normal S1/S1 LUNGS:? CTAB, RR even and regular, No crackles or wheezes are heard. ABDOMEN: No tenderness over right abdomen, no guarding, no rigidity, no rebound tenderness, Hypoactive bowel sounds in all 4 quadrants. BACK: No CVAT, no obvious deformity, full ROM. EXTREMITIES: No cyanosis, clubbing or edema. NEUROLOGICAL: Nonfocal. Alert and oriented, moving all 4 extremities. Skin: ?Warm and dry without any rash <Suzette Raygoza DNP - Last Filed: 08/04/24 14:13> Results Labs CBC and Chem 7: 08/04/24 09:42 08/04/24 09:42 <Rigo Nguyen MD - Last Filed: 08/04/24 13:05> Labs: Laboratory Results - last 24 hr 08/04/24 08/04/24 08/04/24 09:38 09:42 10:59 MCV 91.7 MCH 32.7 MCHC 35.6 RDW 12.0 Plt Count 198 D MPV 9.5 Immature Gran % (Auto) 0.7 H Neut % (Auto) 74.5 H Lymph % (Auto) 15.0 L Fisher % (Auto) 8.8 Eos % (Auto) 0.5 Baso % (Auto) 0.5 Lymph # (Auto) 1.3 Fisher # (Auto) 0.7 Eos # (Auto) 0.0 Baso # (Auto) 0.0 Abs Immat Gran (auto) 0.06 H Absolute Neuts (auto) 6.3 Absolute Nucleated RBC 0.000 Nucleated RBC % (auto) 0.0 Anion Gap 12 Estim Creat Clear Calc 70.8 Estimated GFR > 60 POC Glucose 266 H Random Glucose 276 H Calcium 9.3 Total Bilirubin 0.4 AST 24 ALT 20 Alkaline Phosphatase 58 Troponin I High Sens < 2.7 Total Protein 6.6 Albumin 4.1 Triglycerides 144 Amylase 331 H Lipase 1060 H Beta-Hydroxybutyrate 0.23 Urine Color Yellow Urine Appearance Clear Urine pH 7.0 Ur Specific Edwards >= 1.030 H Urine Protein Negative Urine Glucose (UA) >=1000 H Urine Ketones Negative Urine Blood Negative Urine Nitrite Negative Ur Leukocyte Esterase Negative Urine RBC 0-2 Urine WBC 0-5 Ur Squamous Epith Cells 0-2 Urine Bacteria None Seen Hyaline Casts 0-2 <Rigo Nguyen MD - Last Filed: 08/04/24 13:05> Imaging Radiologist's Impressions: Impressions Abdomen/Pelvis CT 08/04/24 09:33 IMPRESSION: Acute pancreatitis. 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 Fleischner guidelines were followed. Electronically signed by: Lakhwinder Cordova MD 08/04/2024 11:03 AM EDT <Rigo Nguyen MD - Last Filed: 08/04/24 13:05> Assessment and Plan (1) Acute pancreatitis: Qualifiers: Pancreatitis type: other <Rigo Nguyen MD - Last Filed: 08/04/24 13:05> Status: Resolved <Rigo Nguyen MD - Last Filed: 08/04/24 13:05> 54-year-old male with a history of hypertension, type 2 diabetes, alcohol use disorder, cocaine use disorder, and chronic pancreatitis presented to the ED with 2 days of abdominal pain, nausea and vomiting. Patient takes Creon for his chronic pancreatitis and has not had this in 3-4 days. His lipase was noted to be elevated on admission, he will be admitted for acute pancreatitis treatment. Acute on chronic Pancreatitis Suspected secondary to missed medication for 3-4 days IVF, IV analgesics, bowel rest NPO except Ice chips Continue to encourage abstaining from alcohol Lipase elevated to 1060, Amylase 331. Follow labs. Restart Creon HTN/HLD Continue Lisinopril daily, metoprolol Type 2 DM Hold Jardience and Lantus POC and Sliding scale insulin Beta hydroxybuterate WNL, No gap. Pancreatitis Likely not due to DM Incidental finding of Cluster of the 8mm noncalcified pulmonary nodule in the periphery of the right lower lung lobe Will need PCP follow up CODE Status:FULL CODE VTE Prophylaxis: PNEUMATIC device <Suzette Raygoza DNP - Last Filed: 08/04/24 14:13> Quality Stroke Does the patient have a stroke diagnosis?: No <Rigo Nguyen MD - Last Filed: 08/04/24 13:05> VTE Prior VTE?: No <Rigo Nguyen MD - Last Filed: 08/04/24 13:05> VTE Risk Level:: Medical - moderate - high <Rigo Nguyen MD - Last Filed: 08/04/24 13:05> VTE Device Contraindication: N/A - Device Ordered <Rigo Nguyen MD - Last Filed: 08/04/24 13:05> VTE Drug Contraindication: N/A - Med Ordered <Rigo Nguyen MD - Last Filed: 08/04/24 13:05>
[2024-08-04] MEDS: Lactated Ringers 1,000 ML 125 ML IVCONT ×2 (13:25→21:13)
--- NOTE | 2024-08-04 13:53 | PHA.MEDREC ---
Addendum entered by Dhaval Singh [facility] 08/04/24 14:11: MED REC CHECKED BY [facility] Original Note: Pharmacy Consult ? Medication Reconciliation Pharmacy has completed the medication reconciliation. Spoke with pt and pt was a bit of a poor historian with his medications and got some of them confused; Pt stated he ran out of the creon a week ago and has been having problems since and just picked it up today, looking in claims pt picked up creon today (08/04) for the first time.
[2024-08-04 14:16] VITALS: BP 154/82; PULSE 66; RESP 18; O2SAT 97
[2024-08-04 16:27] VITALS: BMI 33.2
[2024-08-04] MEDS: HYDROmorphone HCl 1 MG/ML SYRINGE 0.5 MG IVPUSH ×2 (16:49→21:11)
[2024-08-04 16:54] VITALS: BP 153/89; PULSE 66; RESP 18; TEMP 36.3; O2SAT 98
[2024-08-04 16:56] LABS: Glucose, Whole Blood 118 mg/dL (60-115)
[2024-08-04 19:15] VITALS: BP 138/63; PULSE 65; RESP 18; TEMP 36.3; O2SAT 97
[2024-08-04] MEDS: Acetaminophen 325 MG TABLET 650 MG PO (20:11)
[2024-08-04] MEDS: Sennosides 8.6 MG TABLET 17.2 MG PO (20:12)
[2024-08-04 20:25] LABS: Glucose, Whole Blood 106 mg/dL (60-115)
[2024-08-05] MEDS: HYDROmorphone HCl 1 MG/ML SYRINGE 0.5 MG IVPUSH ×4 (01:11→20:12)
[2024-08-05] MEDS: QUEtiapine Fumarate 300 MG TABLET PO (01:13)
[2024-08-05] MEDS: traZODone HCL 50 MG TABLET 150 MG PO (01:13)
[2024-08-05 03:39] VITALS: BP 102/62; PULSE 66; RESP 16; TEMP 36.9; O2SAT 98
[2024-08-05] MEDS: Lactated Ringers 1,000 ML 125 ML IVCONT ×3 (04:37→20:14)
[2024-08-05 06:27] LABS: Alanine Aminotransferase 16 U/L (0-40); Albumin Level 3.6 g/dL (3.5-5.0); Alkaline Phosphatase 54 U/L (39-117); Anion Gap 16 (12-20); Aspartate Amino Transferase 25 U/L (5-37); Bilirubin Total 0.6 mg/dL (0.0-1.0); Blood Urea Nitrogen 11 mg/dL (9-16); Carbon Dioxide 22 mmol/L (22-29); Chloride 106 mmol/L (96-108); Creatinine Clr Calc Pharmacy 116.1; Estimated Glomerular Filt Rate > 60; Glucose Random 91 mg/dL (60-115); Potassium 4.1 mmol/L (3.3-5.1); Sodium 140 mmol/L (135-145)
[2024-08-05 06:54] VITALS: BP 134/78; PULSE 74; RESP 16; TEMP 36.1; O2SAT 98
[2024-08-05 07:21] LABS: Glucose, Whole Blood 96 mg/dL (60-115)
[2024-08-05] MEDS: Famotidine 20 MG TABLET PO (08:15)
[2024-08-05] MEDS: Fenofibrate,Micronized 134 MG CAPSULE PO (08:15)
[2024-08-05] MEDS: Metoprolol Succinate ER 50 MG TAB.ER.24H PO (08:15)
[2024-08-05] MEDS: Cyanocobalamin (Vitamin B-12) 1,000 MCG TABLET 1000 MCG PO (08:15)
[2024-08-05] MEDS: lisinopriL 10 MG TABLET PO (08:15)
[2024-08-05] MEDS: DULoxetine HCl 60 MG CAPSULE.DR PO (08:16)
[2024-08-05 08:18] LABS: Lipase 385 U/L (8-78)
--- NOTE | 2024-08-05 08:56 | HO.PM.IMPN ---
Subjective Subjective Date of Service: 08/05/24 Interval History: f/u on acute pancreatitis pain is better , lipase level signficantly down Physical Exam Vital Signs: Vital Signs: Last Vital Signs Temp 96.9 F 08/05/24 06:54 Pulse 74 08/05/24 06:54 Resp 16 08/05/24 06:54 BP 134/78 08/05/24 06:54 Pulse Ox 98 08/05/24 06:54 O2 Del Method Room Air 08/05/24 06:54 BMI result Body Mass Index 33.2 Const: Other: General: AO X 3, no acute distress Resp: CTA bilateral CVS: S1,S2,RRR GI: +BS, mod epigastric tenderness, no distention Skin: No rash Neuro: motor grossly intact Psych: appropriate affect Objective Data Active Medications Acetaminophen (Acetaminophen 325 Mg Tablet) 650 mg PO Q6H PRN PRN Reason: Pain, Mild 1-3,fever,headache Last Admin: 08/04/24 20:11 Dose: 650 mg Documented By: NEELA Comments: per pt request Calcium Carbonate (Calcium Carbonate 750 Mg Tab.Chew) 750 mg PO Q4H PRN PRN Reason: Heartburn Cyanocobalamin (Cyanocobalamin (Vitamin B-12) 1,000 Mcg Tablet) 1,000 mcg PO DAILY [facility] Last Admin: 08/05/24 08:15 Dose: 1,000 mcg Documented By: BREA Duloxetine HCl (Duloxetine Hcl 60 Mg Capsule.Dr) 60 mg PO DAILY [facility] Last Admin: 08/05/24 08:16 Dose: 60 mg Documented By: BREA Famotidine (Famotidine 20 Mg Tablet) 20 mg PO DAILY [facility] Last Admin: 08/05/24 08:15 Dose: 20 mg Documented By: BREA Fenofibrate (Fenofibrate,Micronized 134 Mg Capsule) 134 mg PO DAILY [facility] Last Admin: 08/05/24 08:15 Dose: 134 mg Documented By: BREA Hydromorphone HCl (Hydromorphone Hcl 1 Mg/Ml Syringe) 0.5 mg IVPUSH Q4H PRN; Protocol PRN Reason: Pain, Severe (Pain Scale 7-10) Last Admin: 08/05/24 08:15 Dose: 0.5 mg Documented By: BREA Lactated Ringer's (Lr) 1,000 mls @ 125 mls/hr IVCONT .Q8H [facility] Last Admin: 08/05/24 04:37 Dose: 125 mls/hr Documented By: NEELA Insulin Human Lispro (Insulin Lispro 100 Unit/Ml 3 Ml Vial) 0 unit SUBCUT QIDACHS [facility]; Protocol Last Admin: 08/05/24 07:22 Dose: Not Given Documented By: BREA Non-Admin Reason: No Insulin Coverage Lisinopril (Lisinopril 10 Mg Tablet) 10 mg PO DAILY [facility]; Protocol Last Admin: 08/05/24 08:15 Dose: 10 mg Documented By: BREA Magnesium Hydroxide (Milk Of Magnesia 30 Ml Oral.Susp) 30 ml PO DAILY PRN PRN Reason: Constipation Melatonin (Melatonin 3 Mg Tablet) 6 mg PO BEDTIME PRN PRN Reason: Insomnia Metoprolol Succinate (Metoprolol Succinate Er 50 Mg Tab.Er.24h) 50 mg PO DAILY [facility]; Protocol Last Admin: 08/05/24 08:15 Dose: 50 mg Documented By: BREA Non-Formulary Medication (Ltmfby-Yzsjzksw-Yxsqnme [Creon]) 1 cap PO TID [facility] Polyethylene Glycol (Polyethylene Glycol 3350 17 Gm Powd.Pack) 17 gm PO DAILY PRN PRN Reason: Constipation Quetiapine Fumarate (Quetiapine Fumarate 300 Mg Tablet) 300 mg PO BEDTIME [facility] Last Admin: 08/05/24 01:13 Dose: 300 mg Documented By: NEELA Senna (Sennosides 8.6 Mg Tablet) 17.2 mg PO BEDTIME [facility] Last Admin: 08/04/24 20:12 Dose: 17.2 mg Documented By: NEELA Sodium Chloride (0.9 % Sodium Chloride Flush 3 Ml Syringe) 3 ml IVFLUSH QSHIFT [facility] Last Admin: 08/05/24 07:25 Dose: Not Given Documented By: BREA Non-Admin Reason: IV Running Trazodone HCl (Trazodone Hcl 50 Mg Tablet) 150 mg PO BEDTIME [facility] Last Admin: 08/05/24 01:13 Dose: 150 mg Documented By: NEELA Labs 08/04/24 09:42 08/05/24 05:30 Labs: Laboratory Results - last 24 hr 08/04/24 08/04/24 08/04/24 09:38 09:42 10:59 MCV 91.7 MCH 32.7 MCHC 35.6 RDW 12.0 Plt Count 198 D MPV 9.5 Immature Gran % (Auto) 0.7 H Neut % (Auto) 74.5 H Lymph % (Auto) 15.0 L Curry % (Auto) 8.8 Eos % (Auto) 0.5 Baso % (Auto) 0.5 Lymph # (Auto) 1.3 Curry # (Auto) 0.7 Eos # (Auto) 0.0 Baso # (Auto) 0.0 Abs Immat Gran (auto) 0.06 H Absolute Neuts (auto) 6.3 Absolute Nucleated RBC 0.000 Nucleated RBC % (auto) 0.0 Anion Gap 12 Estim Creat Clear Calc 70.8 Estimated GFR > 60 POC Glucose 266 H Random Glucose 276 H Calcium 9.3 Total Bilirubin 0.4 AST 24 ALT 20 Alkaline Phosphatase 58 Troponin I High Sens < 2.7 Total Protein 6.6 Albumin 4.1 Triglycerides 144 Amylase 331 H Lipase 1060 H Beta-Hydroxybutyrate 0.23 Urine Color Yellow Urine Appearance Clear Urine pH 7.0 Ur Specific Snow >= 1.030 H Urine Protein Negative Urine Glucose (UA) >=1000 H Urine Ketones Negative Urine Blood Negative Urine Nitrite Negative Ur Leukocyte Esterase Negative Urine RBC 0-2 Urine WBC 0-5 Ur Squamous Epith Cells 0-2 Urine Bacteria None Seen Hyaline Casts 0-2 08/04/24 08/04/24 08/05/24 16:52 20:16 05:30 MCV MCH MCHC RDW Plt Count MPV Immature Gran % (Auto) Neut % (Auto) Lymph % (Auto) Curry % (Auto) Eos % (Auto) Baso % (Auto) Lymph # (Auto) Curry # (Auto) Eos # (Auto) Baso # (Auto) Abs Immat Gran (auto) Absolute Neuts (auto) Absolute Nucleated RBC Nucleated RBC % (auto) Anion Gap 16 Estim Creat Clear Calc 116.1 Estimated GFR > 60 POC Glucose 118 H 106 Random Glucose 91 Calcium 9.0 Total Bilirubin 0.6 AST 25 ALT 16 Alkaline Phosphatase 54 Troponin I High Sens Total Protein 6.0 L Albumin 3.6 Triglycerides Amylase Lipase 385 H Beta-Hydroxybutyrate Urine Color Urine Appearance Urine pH Ur Specific Snow Urine Protein Urine Glucose (UA) Urine Ketones Urine Blood Urine Nitrite Ur Leukocyte Esterase Urine RBC Urine WBC Ur Squamous Epith Cells Urine Bacteria Hyaline Casts 08/05/24 07:16 MCV MCH MCHC RDW Plt Count MPV Immature Gran % (Auto) Neut % (Auto) Lymph % (Auto) Curry % (Auto) Eos % (Auto) Baso % (Auto) Lymph # (Auto) Curry # (Auto) Eos # (Auto) Baso # (Auto) Abs Immat Gran (auto) Absolute Neuts (auto) Absolute Nucleated RBC Nucleated RBC % (auto) Anion Gap Estim Creat Clear Calc Estimated GFR POC Glucose 96 Random Glucose Calcium Total Bilirubin AST ALT Alkaline Phosphatase Troponin I High Sens Total Protein Albumin Triglycerides Amylase Lipase Beta-Hydroxybutyrate Urine Color Urine Appearance Urine pH Ur Specific Snow Urine Protein Urine Glucose (UA) Urine Ketones Urine Blood Urine Nitrite Ur Leukocyte Esterase Urine RBC Urine WBC Ur Squamous Epith Cells Urine Bacteria Hyaline Casts Assessment and Plan (1) Pancreatitis: Status: Acute (2) Transaminasemia: Status: Acute Plan 54-year-old male with a history of hypertension, type 2 diabetes, alcohol use disorder, cocaine use disorder, and chronic pancreatitis presented to the ED with 2 days of abdominal pain, nausea and vomiting. Patient takes Creon for his chronic pancreatitis and has not had this in 3-4 days. His lipase was noted to be elevated on admission, he will be admitted for acute pancreatitis treatment. Acute on chronic alcoholic Pancreatitis and missing creon for 3 to 4 days, improving Lipase 1060 to 385 today IVF, IV analgesics start liquid diet Continue to encourage abstaining from alcohol Follow labs. continue Creon HTN/HLD Continue Lisinopril daily, metoprolol , lofibra Type 2 DM Hold Jardience and Lantus POC and Sliding scale insulin Beta hydroxybuterate WNL, No gap. Pancreatitis Likely not due to DM Incidental finding of Cluster of the 8mm noncalcified pulmonary nodule in the periphery of the right lower lung lobe Will need PCP follow up CODE Status:FULL CODE VTE Prophylaxis: PNEUMATIC device Quality Stroke Does the patient have a stroke diagnosis?: No VTE Prior VTE?: No VTE Risk Level:: Medical - moderate - high VTE Device Contraindication: N/A - Device Ordered VTE Drug Contraindication: N/A - Med Ordered
[2024-08-05] MEDS: Enoxaparin Sodium 40 MG/0.4 ML SYRINGE SUBCUT (09:28)
[2024-08-05 11:10] LABS: Glucose, Whole Blood 154 mg/dL (60-115)
[2024-08-05] MEDS: Insulin Lispro 100 UNIT/ML 3 ML VIAL SUBCUT (11:39)
--- NOTE | 2024-08-05 12:44 | MHC.CM.PN ---
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
[2024-08-05 16:25] LABS: Glucose, Whole Blood 117 mg/dL (60-115)
[2024-08-05 16:30] VITALS: BP 110/63; PULSE 69; RESP 18; TEMP 36.4; O2SAT 97
[2024-08-05 19:51] VITALS: BP 130/68; PULSE 72; RESP 12; TEMP 36.7; O2SAT 97
[2024-08-05 20:20] LABS: Glucose, Whole Blood 142 mg/dL (60-115)
[2024-08-06] MEDS: HYDROmorphone HCl 1 MG/ML SYRINGE 0.5 MG IVPUSH ×2 (00:14→08:35)
[2024-08-06] MEDS: Acetaminophen 325 MG TABLET 650 MG PO (00:17)
[2024-08-06] MEDS: traZODone HCL 50 MG TABLET 150 MG PO (00:18)
[2024-08-06] MEDS: QUEtiapine Fumarate 300 MG TABLET PO (00:18)
[2024-08-06] MEDS: Sennosides 8.6 MG TABLET 17.2 MG PO (00:18)
[2024-08-06 02:54] VITALS: BP 107/59; PULSE 61; RESP 18; TEMP 36.8; O2SAT 97
[2024-08-06] MEDS: Lactated Ringers 1,000 ML 125 ML IVCONT (03:43)
[2024-08-06 07:01] VITALS: BP 139/70; PULSE 72; RESP 16; TEMP 36.6; O2SAT 99
[2024-08-06 07:16] LABS: Glucose, Whole Blood 104 mg/dL (60-115)
[2024-08-06 08:00] LABS: Lipase 75 U/L (8-78)
[2024-08-06] MEDS: Metoprolol Succinate ER 50 MG TAB.ER.24H PO (08:18)
[2024-08-06] MEDS: Enoxaparin Sodium 40 MG/0.4 ML SYRINGE SUBCUT (08:18)
[2024-08-06] MEDS: Fenofibrate,Micronized 134 MG CAPSULE PO (08:18)
[2024-08-06] MEDS: Famotidine 20 MG TABLET PO (08:18)
[2024-08-06] MEDS: lisinopriL 10 MG TABLET PO (08:19)
[2024-08-06] MEDS: DULoxetine HCl 60 MG CAPSULE.DR PO (08:19)
[2024-08-06] MEDS: Cyanocobalamin (Vitamin B-12) 1,000 MCG TABLET 1000 MCG PO (08:19)
--- NOTE | 2024-08-06 09:10 | PM.DS ---
DS: Providers Provider Date of Service: 08/06/24 Date of admission: 08/04/24 13:07 Date of discharge: 08/06/24 Primary care physician: Ruma Gilbert MD DS: Diagnosis Discharge Diagnosis (1) Pancreatitis: Status: Acute (2) Transaminasemia: Status: Acute DS: Summary Hospital Course Hospital Course: admission hpi Chief Complaint: Abdominal pain 54-year-old male with PMH of alcohol use disorder, cocaine use disorder, T2DM, HTN, chronic pancreatitis, presents to the ED with abdominal pain. He reports that he has been out of his Creon for 3-4 days which manages his chronic pancreatitis. He started with mild abdominaland back pain yesterday, which worsened this morning prompting him to come in. Patient reports that he vomited yesterday, clear substance no hematemesis, reports that he ate 3 meals yesterday, last ate a sandwich last evening. Did not eat this morning. He initially thought he was constipated but he had a large BM and this did not relieve his pain. He states he began feeling abdominal pain yesterday which radiates to the middle of his back, with pain being worse today prompting him to seek care today. Patient reports no pain at present, just received pain medication. Reports drinking beer on the weekend, no recent drug use. In the ED he received 2 L of lactated Ringer's, 1 mg of Dilaudid and 4 mg of Zofran which relieved his symptoms. He is resting comfortably at this time. In the ED, EKG demonstrated normal sinus rhythm, no ST elevation/depression/T-wave inversions. Occasional PVC's. No leukocytosis, elevated lipase of 1060, amylase of 331. Triglycerides WNL. Beta hydroxybuterate WNL, glucose elevated at 266. UA with urine glucose of 1,000. CT abdomen/pelvis reveals acute pancreatitis with peripancreatic edema, without fluid collection. Incidental findings of Cluster of the 8mm noncalcified pulmonary nodule in the periphery of the right lower lung lobe. Will need outpatient follow up. hospital course: The patient presented with abdominal pain and was diagnosed with acute pancreatitis, confirmed by a CT scan which also showed chronic splenic vein thrombosis and an elevated lipase level of 1060. His treatment included IV fluids, IV pain medications, and serial lipase monitoring, with his lipase level decreasing to 75 today. His pain has gradually subsided, and he is now tolerating a regular diet. He is advised to avoid alcohol to prevent future episodes. Final diagnosis: Acute alcoholic pancreatitis chronic splenic vein thrombosis alcoholic hepatitis Time Attestation Discharge Coordination Time (in mins): 45 Quality: Safe Use of Opioids Does Pt have an Active Cancer Diagnosis on the Problem List?: No Quality: Stroke Does the patient have a stroke diagnosis?: No Physical Exam Vital Signs: Vital Signs: Last Vital Signs Temp 98 F 08/06/24 07:01 Pulse 72 08/06/24 07:01 Resp 16 08/06/24 07:01 BP 139/70 08/06/24 07:01 Pulse Ox 99 08/06/24 07:01 O2 Del Method Room Air 08/06/24 07:01 BMI result Body Mass Index 33.2 General: AO X 3, no acute distress Resp: CTA bilateral CVS: S1,S2,RRR GI: +BS, NT, no distention Skin: No rash Neuro: motor grossly intact Psych: appropriate affect DS: Data Data Completed and Pending Completed studies during hospitalization [Text1]: Procedures Detoxification Services for Substance Abuse Treatment (01/30/22) Labs on day of discharge: Laboratory Results - last 24 hr 08/05/24 08/05/24 08/05/24 11:02 16:12 20:04 POC Glucose 154 H 117 H 142 H Lipase 08/06/24 08/06/24 07:01 07:35 POC Glucose 104 Lipase 75 Discharge Plan Discharge Anticipated Discharge Date/Time: 08/06/24 09:20 Patient Disposition: Home, Self-Care Discharge Diagnosis: Acute alcoholic pancreatitis Referrals: Ruma Gilbert MD [Primary Care Provider, Medical] - 1 Week Discharge Medications: Continued quetiapine 300 mg tablet 300 mg PO BEDTIME trazodone 150 mg tablet 150 mg PO BEDTIME Jardiance 25 mg tablet 25 mg PO DAILY cyanocobalamin (vitamin B-12) 1,000 mcg Tablet 1,000 mcg PO DAILY metoprolol succinate 50 mg tablet extended release 24 hr 50 mg PO DAILY lisinopril 10 mg tablet 10 mg PO DAILY fenofibrate nanocrystallized 145 mg tablet 145 mg PO DAILY insulin glargine [Lantus Solostar U-100 Insulin] 100 unit/mL (3 mL) insulin pen 25 unit subcut DAILY Creon 3,000-9,500- 15,000 unit capsule,delayed release(DR/EC) 1 cap PO TID Patient Comments: patients takes all three tablets in morning he does not take as prescribed states he been taking that way for a year and his Md is aware famotidine 20 mg tablet 20 mg PO DAILY Centrum Silver Men [phone] mcg Tablet 1 tab PO DAILY celecoxib 200 mg capsule 200 mg PO BID PRN (Reason: pain) meloxicam 15 mg tablet 15 mg PO DAILY PRN (Reason: pain) gabapentin 300 mg capsule 300 mg PO BID PRN (Reason: Pain) duloxetine 60 mg capsule,delayed release(DR/EC) 60 mg PO DAILY Discharge Orders: Discharge Order (Routine); Ordered 08/06/24 Ordered By: Rigo Nguyen Diet: Advance to usual diet Activity on Discharge: As tolerated Stand Alone Forms: Patient Portal Discharge page Print Language: Vietnamese Care Plan Goals: recovery from acute pancreatitis Health Concerns: alcohol use disorder Plan of Treatment: avoid alcohol avoid fatty food follow up with your doctor in a week, call for appointment Assessment: See above
--- NOTE | 2024-08-06 09:54 | MHC.CM.PN ---
PT WILL DC HOME TODAY WITH RESUMPTION OF [facility] SERVICES VIA [facility]
== END 2024-08-06 10:46 | disposition home or self-care (01) | DRG 439 ==
LOC: HO.ED 12:46 → HO.EDOVER 13:08 → HO.S3 14:56
PROVIDERS: Admitting Provider Internal Medicine; Emergency Provider Emergency Medicine; PCP Internal Medicine; Visit Provider Internal Medicine
DX: K85.20 Alcohol induced acute pancreatitis without necrosis or infection (principal); I82.891 Chronic embolism and thrombosis of other specified veins; K86.0 Alcohol-induced chronic pancreatitis; T47.5X6A Underdosing of digestants, initial encounter; I10 Essential (primary) hypertension; E78.5 Hyperlipidemia, unspecified; E11.9 Type 2 diabetes mellitus without complications; Z79.4 Long term (current) use of insulin; Z79.899 Other long term (current) drug therapy
CPT/HCPCS: 36415; 74177; 80053; 81001; 82010; 82150; 82947; 83690; 84478; 84484; 85025; 93005; 99285; J1171; J1650; J2405; J7120; Q9967

== ENCOUNTER → 2024-08-04 09:16 | Outpatient (BNV) | payer OTHER, SELFPAY | PROVIDERS: Admitting Provider Internal Medicine; Emergency Provider Emergency Medicine; PCP Internal Medicine; Visit Provider Internal Medicine Cardiovascular Disease | DX: I49.3 Ventricular premature depolarization (principal) | CPT/HCPCS: 93010 ==

== ENCOUNTER → 2024-08-04 09:22 | Outpatient (BNV) | payer OTHER, SELFPAY | PROVIDERS: Emergency Provider Emergency Medicine; PCP Internal Medicine; Visit Provider Radiology Diagnostic Radiology | DX: K85.90 Acute pancreatitis without necrosis or infection, unspecified (principal) | CPT/HCPCS: 74177 ==

== ENCOUNTER → 2024-08-04 13:07 | Outpatient (BNV) | payer OTHER, SELFPAY | PROVIDERS: Admitting Provider Internal Medicine; Emergency Provider Emergency Medicine; PCP Internal Medicine; Visit Provider Nurse Practitioner Family | DX: K85.90 Acute pancreatitis without necrosis or infection, unspecified (principal); R74.01 Elevation of levels of liver transaminase levels | CPT/HCPCS: 99223; 99232; 99239 ==